=== PATIENT | male | born 1945 | race Caucasian/White ===

== ENCOUNTER → 2016-03-30 | Outpatient (CLI) | payer OTHER ==
[~2016-03-30] MED LIST: ABIR1TAB PO; AMT10 PO; CALC500C70 PO; DICY10CA12 PO; DOCU100T PO; ENOX120I SQ; FERR18TA2; FERR1TAB13 PO; LATA0.009 OPB; LEUP1INJ6 IM; NALO1TAB2 PO; ONDA4TAB10 SL; OXYC-57 PO; OXYC1TAB PO; POTA20TA16 PO; PRED-301 PO; PREG300C PO; PRLSR20 PO; RXC30 PO; TIZA4CAP PO; TRAV0.00 OPB; WARF-246 PO; WARF2.5T8 PO; [UNRECOGNIZED DRUG - SUPPLY]
--- NOTE | 2016-03-30 13:03 | DIAGNOSTIC IMAGING REPORT ---
EXAMINATION: RENAL ULTRASOUND CLINICAL HISTORY: HEMATURIA COMPARISON STUDY: CT scan dated 02/19/2015 FINDINGS: The right kidney measures 12.1 cm. The left kidney measures 12.1 cm. There is no evidence of hydronephrosis. There is a 17 mm mid to upper pole right renal cyst. There are several left renal cysts, the largest of which measures 2.6 cm. No bladder abnormalities are visualized. The bladder was not well-distended. Bilateral ureteral jets were visualized. IMPRESSION : Bilateral renal cysts. No solid renal masses identified. Electronically signed by: Hans Long M.D. 03/30/2016 1:01 PM Dictated Date/Time: 03/30/2016 1:00 PM
== END | disposition home or self-care (01) ==
LOC: C.ULTRBC 11:39
DX: R31.9 Hematuria, unspecified (principal); N28.1 Cyst of kidney, acquired

== ENCOUNTER → 2016-03-31 | Outpatient (CLI) | payer OTHER | END | disposition home or self-care (01) | LOC: C.LABSPEC 17:04 → C.PATHSPEC 17:13 | PROVIDERS: ATTEND Nurse Practitioner Adult Health | DX: R31.0 Gross hematuria (principal); R82.8 Abnormal findings on cytological and histological examination of urine ==

== ENCOUNTER 2016-04-05 10:37 | Inpatient (IN) | payer OTHER ==
[~2016-04-05] VITALS: Ht 172.7 cm; Wt 99.8 kg
[~2016-04-05 10:37] MED LIST changes: -ABIR1TAB PO; -AMT10 PO; -CALC500C70 PO; -DICY10CA12 PO; -DOCU100T PO; -ENOX120I SQ; -FERR18TA2; -FERR1TAB13 PO; -LEUP1INJ6 IM; -NALO1TAB2 PO; -ONDA4TAB10 SL; -OXYC-57 PO; -OXYC1TAB PO; -POTA20TA16 PO; -PRED-301 PO; -PREG300C PO; -PRLSR20 PO; -TIZA4CAP PO; -TRAV0.00 OPB; -WARF-246 PO; -WARF2.5T8 PO; -[UNRECOGNIZED DRUG - SUPPLY]
[2016-04-05] MEDS ORDERED: OXYC1TAB PO (11:20)
[2016-04-05] MEDS ORDERED: TIZA4CAP PO (11:22)
[2016-04-05] MEDS ORDERED: DOCU100T PO (11:22)
[2016-04-05] MEDS ORDERED: LATA0.009 OPB (11:25)
[2016-04-05] MEDS ORDERED: [UNRECOGNIZED DRUG - SUPPLY] (11:27)
[2016-04-05] MEDS ORDERED: FERR18TA2 (11:27)
--- NOTE | 2016-04-05 11:27 | EMERGENCY ROOM VISIT NOTE ---
History Report prepared by Darielibarianna: Selena Porter Under the Supervision of: Dr. Krishna Rowland M.D. 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 pt to toom b1. upon arrival pt is AAOx4. pt states he was drinking his morning coffee and watching tv. pt unable to collect all of happenings this morning. pt talking and answering questions appropriately at this time. pt with hx of TIA, sleep apnea, and currently has nerve stimulator. as per als, pt bradycardic and hypotensive in route family states 'this episode happens frequently. this one he seemed to be a little more out of it.' History of Present Illness The patient is a 70 year old male who presents to the Emergency Room via ALS with complaints of a syncopal episode occurring about 40 minutes prior to arrival. He was unresponsive for about 5 minutes. He denies falling. He has a history of similar symptoms occurring multiple times over the past few years but his episode today was the most severe one. He also has a history of bradycardia and hypotension. As per family, the patient has mild slurring of speech which is normal. As per family, patient's right eye deviation is normal but the patient states that he has never been told of the deviation before. The patient denies any chest pain, shortness of breath, abdominal pain, urinary symptoms, or any other complaints. He currently denies any pain. He has a history of prostate cancer without metastasis. He has an IVC filter in place. He also has a neurostimulator for left leg pain. Source of History: patient Onset: about 40 minutes prior to arrival Position: other (global) Symptom Intensity: No pain Quality: other (syncopal episode) Associated Symptoms: No SOB, No abdominal pain, No chest pain, No urinary symptoms Review of Systems All systems have been listed, reviewed, and are negative other than those previously mentioned. Please see Additional Medical History Sheet. 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 Surgical Problems: (1) Bone Marrow Transplant (2) Hip Joint Replacement Status (3) 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 Family History Hypertension Lung disease Social History Smoking Status: Current Every Day Smoker Alcohol Use: occasionally Drug Use: none Marital Status: Housing Status: lives with family Occupation Status: retired Current/Historical Medications Scheduled Abiraterone Acetate (Zytiga), 1,000 MG PO DAILY Amitriptyline HCl (Amitriptyline HCl), 10 MG PO HS Docusate Sodium (Dok), 50 MG PO DAILY Latanoprost (Xalatan 0.005% Oph Cecelia), 1 DROPS OPB HS Prednisone (Prednisone), 5 MG PO DAILY Pregabalin (Lyrica), 300 MG PO BID Tizanidine (Zanaflex), 4 MG PO TID Travoprost (Travatan Z), 1 DROP OPB HS Warfarin Sodium (Warfarin Sodium), 5 MG PO DAILY Scheduled PRN Leuprolide Acetate (6 Month) (Lupron Depot), 1 DOSE IM UD PRN for ELEVATED PSA Oxycodone Ir (Roxicodone Ir), 30-45 MG PO Q4 PRN for Pain Miscellaneous Medications Ferrous Fumarate (Iron) [breating apparatus] Allergies Coded Allergies: Adalimumab (Verified Allergy, Severe, GI SYMPTOMS, 04/05/16) Mirabegron (Verified Allergy, Intermediate, NUEROLOGICAL SYMPTOMS, 04/05/16 ) Methotrexate (Verified Allergy, Unknown, Blood platelets drop., 04/05/16) Naproxen (Unverified Allergy, Unknown, dilusional, 04/05/16) Physical Exam Vital Signs Date Time Temp Pulse Resp B/P Pulse Ox O2 Delivery O2 Flow Rate FiO2 04/05/16 15:01 56 18 149/99 94 Room Air 04/05/16 13:20 54 04/05/16 12:50 47 04/05/16 12:49 47 123/75 51 132/79 51 136/81 04/05/16 11:32 48 18 124/78 96 Room Air 04/05/16 10:46 36.5 56 17 108/65 95 Room Air 04/05/16 10:46 95 Room Air 04/05/16 10:46 95 Room Air 04/05/16 10:45 48 Physical Exam GENERAL: Patient awake, alert, oriented x 3. Patient follows commands. Patient has slightly garbled speech which he attributes to dry mouth. SKIN: No erythema, pallor, cyanosis or rash HEENT: Normal head, pupils equal, reactive to light and accommodation. Patient has ptosis. Disconjugate gaze with lateral deviation of right eye. Oral cavity and posterior pharynx appear normal. Neck: Without adenopathy, no neck vein distention. LUNGS: Clear to auscultation. No wheezes, no rales, no rhonchi. HEART: Bradycardic rate and regular rhythm. No murmurs. No gallops. No rubs ABDOMEN: Soft, nontender. EXTREMITIES: No signs of trauma. 1+ pretibial edema. No calf or thigh tenderness. NEUROLOGIC: Cranial nerves II-XII within normal limits. No gross motor sensory function deficits. Patient has slightly garbled speech which he attributes to dry mouth. Medical Decision & Procedures ER Provider Diagnostic Interpretation: CT results as stated below per my review and radiologist interpretation: HEAD CT NONCONTRAST CT DOSE: 614.27 mGy.cm HISTORY: syncope TECHNIQUE: Multiaxial CT images of the head were performed without the use of intravenous contrast. Automated exposure control was utilized for this study. Comparison: Head CT 05/15/2015. Findings: The paranasal sinuses and mastoid air cells are clear. The calvarium and skull base are intact. There is no mass, hematoma, midline shift, acute infarct. White matter hypodensity is nonspecific but suggestive of microvascular ischemic change. The ventricles and sulci are within normal limits for age. Impression: No significant change compared to the prior study. No acute intracranial abnormality. Electronically signed by: Stefan Solano M.D. 04/05/2016 11:52 AM Dictated Date/Time: 04/05/2016 11:46 AM Laboratory Results 04/05/16 10:30 Red Blood Count 5.06, Mean Corpuscular Volume 81.2, Mean Corpuscular Hemoglobin 27.1, Mean Corpuscular Hemoglobin Concent 33.3, Mean Platelet Volume 10.8, Neutrophils (%) (Auto) 60.0, Lymphocytes (%) (Auto) 25.2, Monocytes (%) (Auto) 8.8, Eosinophils (%) (Auto) 5.4, Basophils (%) (Auto) 0.3, Neutrophils # (Auto) 4.53, Lymphocytes # (Auto) 1.90, Monocytes # (Auto) 0.66, Eosinophils # (Auto) 0.41, Basophils # (Auto) 0.02 04/05/16 10:30 Test 04/05/16 10:30 04/05/16 10:55 White Blood Count 7.54 K/uL (4.8-10.8) Red Blood Count 5.06 M/uL (4.7-6.1) Hemoglobin 13.7 g/dL (14.0-18.0) Hematocrit 41.1 % (42-52) Mean Corpuscular Volume 81.2 fL (80-100) Mean Corpuscular Hemoglobin 27.1 pg (25-34) Mean Corpuscular Hemoglobin Concent 33.3 g/dl (32-36) Platelet Count 197 K/uL (130-400) Mean Platelet Volume 10.8 fL (7.4-10.4) Neutrophils (%) (Auto) 60.0 % Lymphocytes (%) (Auto) 25.2 % Monocytes (%) (Auto) 8.8 % Eosinophils (%) (Auto) 5.4 % Basophils (%) (Auto) 0.3 % Neutrophils # (Auto) 4.53 K/uL (1.4-6.5) Lymphocytes # (Auto) 1.90 K/uL (1.2-3.4) Monocytes # (Auto) 0.66 K/uL (0.11-0.59) Eosinophils # (Auto) 0.41 K/uL (0-0.5) Basophils # (Auto) 0.02 K/uL (0-0.2) RDW Standard Deviation 44.6 fL (36.4-46.3) RDW Coefficient of Variation 15.2 % (11.5-14.5) Immature Granulocyte % (Auto) 0.3 % Immature Granulocyte # (Auto) 0.02 K/uL (0.00-0.02) Prothrombin Time 24.7 SECONDS (9.0-12.0) Prothromb Time International Ratio 2.2 (0.9-1.1) Anion Gap 8.0 mmol/L (3-11) Est Creatinine Clear Calc Drug Dose 63.9 ml/min Estimated GFR () 69.6 Estimated GFR (Non- 60.1 BUN/Creatinine Ratio 19.2 (10-20) Calcium Level 8.9 mg/dl (8.5-10.1) Total Bilirubin 0.4 mg/dl (0.2-1) Aspartate Amino Transf (AST/SGOT) 19 U/L (15-37) Alanine Aminotransferase (ALT/SGPT) 21 U/L (12-78) Alkaline Phosphatase 72 U/L (45-117) Total Protein 7.4 gm/dl (6.4-8.2) Albumin 3.5 gm/dl (3.4-5.0) Globulin 3.9 gm/dl (2.5-4.0) Albumin/Globulin Ratio 0.9 (0.9-2) Bedside Glucose 96 mg/dl (70-99) Laboratory results as stated above per my review. ECG Indication: syncope Rate (beats per minute): 48 Rhythm: sinus bradycardia Findings: other (Very large amount of artifact making interpretation of ECG difficult) ED Course 1059: Past medical records reviewed. The patient was evaluated in room B01. A complete history and physical examination was performed. 1419: Upon reevaluation, the patient is resting comfortably. I discussed today' s findings with him. He verbalized agreement of the treatment plan. 1437: [facility] for further management. Medical Decision Differential diagnosis includes but is not limited to syncope, TIA, CVA, bradycardia, hypotension. I gave command to the paramedics prior to the patient's arrival in the ED. Multiple labs, EKG and imaging were obtained. Please see above. This is one of many episodes of syncope/near syncope but this episode was much more severe both in duration and severity. The patient could not be woken up for approximately 5 minutes. He was pale, clammy and diaphoretic. The patient has had a significant workup in the past without a definitive diagnosis made. Today he arrives bradycardic. The patient does not have signs of an acute CVA. The patient may have been more bradycardic and hypotensive earlier. In either case the patient will require further evaluation in the hospital. I discussed care with the patient multiple family members and the hospitalist. Consults Time Called: 1430 Consulting Physician: [facility] Returned Call: [address] [facility] the [facility] for further management. Impression Primary Impression: Syncope Scribe Attestation The scribe's documentation has been prepared under my direction and personally reviewed by me in its entirety. I confirm that the note above accurately reflects all work, treatment, procedures, and medical decision making performed by me. Departure Information Dispostion Being Evaluated By Hospitalist Referrals Tres Sommers Jr,D.O. (PCP) Patient Instructions My [facility]
[2016-04-05] MEDS ORDERED: LEUP1INJ6 IM (11:42)
--- NOTE | 2016-04-05 11:54 | DIAGNOSTIC IMAGING REPORT ---
HEAD CT NONCONTRAST CT DOSE: 614.27 mGy.cm HISTORY: syncope TECHNIQUE: Multiaxial CT images of the head were performed without the use of intravenous contrast. Automated exposure control was utilized for this study. Comparison: Head CT 05/15/2015. Findings: The paranasal sinuses and mastoid air cells are clear. The calvarium and skull base are intact. There is no mass, hematoma, midline shift, acute infarct. White matter hypodensity is nonspecific but suggestive of microvascular ischemic change. The ventricles and sulci are within normal limits for age. Impression: No significant change compared to the prior study. No acute intracranial abnormality. Electronically signed by: Stefan Solano M.D. 04/05/2016 11:52 AM Dictated Date/Time: 04/05/2016 11:46 AM
[2016-04-05 12:35] LABS: BASO % 0.3 %; BASO ABS # 0.02 K/uL (0-0.2); COMPLETE YES; EOS % 5.4 %; HEMATOCRIT 41.1 % (42-52); IG% 0.3 %; LYMPH % 25.2 %; MEAN CELL VOLUME 81.2 fL (80-100); MEAN CORPUSCULAR HEMOGLOBIN 27.1 pg (25-34); MEAN CORPUSCULAR HGB CONC 33.3 g/dl (32-36); MEAN PLATELET VOLUME 10.8 fL (7.4-10.4); MONO % 8.8 %; PLATELET COUNT 197 K/uL (130-400); RED BLOOD COUNT 5.06 M/uL (4.7-6.1); WHITE BLOOD COUNT 7.54 K/uL (4.8-10.8)
[2016-04-05 12:39] LABS: ALT/SGPT 21 U/L (12-78); AST/SGOT 19 U/L (15-37); BLOOD UREA NITROGEN 23 mg/dl (7-18); BUN/CREATININE RATIO 19.2 (10-20); CALCIUM 8.9 mg/dl (8.5-10.1); CARBON DIOXIDE 27 mmol/L (21-32); CHLORIDE 106 mmol/L (98-107); GLUCOSE 95 mg/dl (70-99); POTASSIUM 4.2 mmol/L (3.5-5.1); SODIUM 141 mmol/L (136-145)
[2016-04-05 12:44] LABS: ALB/GLOB RATIO 0.9 (0.9-2); ALKALINE PHOSPHATASE 72 U/L (45-117)
[2016-04-05] MEDS ORDERED: AMT10 PO (13:49)
[2016-04-05] MEDS ORDERED: TRAV0.00 OPB (13:49)
[2016-04-05 14:29] LABS: INR 2.2 (0.9-1.1); PROTHROMBIN TIME (PATIENT) 24.7 SECONDS (9.0-12.0)
[2016-04-05] MEDS ORDERED: ZOLPIDEM TARTRATE 5 MG TAB PO PRN (16:15)
[2016-04-05] MEDS ORDERED: NITROGLYCERIN 0.4 MG SL PER TAB CHARGE SL PRN (16:15)
[2016-04-05] MEDS ORDERED: DiphenhydrAMINE HCL 50 MG/ML VIAL IV PRN (16:15)
[2016-04-05] MEDS ORDERED: ONDANSETRON INJ 2 MG/ML 2 ML VIAL IV PRN (16:15)
[2016-04-05] MEDS ORDERED: LORAZEPAM 2 MG/ML 1 ML VIAL IV PRN (16:15)
[2016-04-05] MEDS ORDERED: MAGNESIUM HYDROXIDE SUSP 30 ML UDC PO PRN (16:15)
[2016-04-05] MEDS ORDERED: MoRPHine SULFATE 2 MG/ML CARP IV PRN (16:15)
[2016-04-05] MEDS ORDERED: ACETAMINOPHEN 325 MG TAB PO PRN (16:15)
[2016-04-05] MEDS ORDERED: PROMETHAZINE HCL INJ 12.5 MG in SODIUM CHLORIDE 0.9% 50ML 50 ML IV PRN (16:15)
[2016-04-05] MEDS ORDERED: ALUMINUM/MAGNESIUM/SIMETH (MAALOX MAX) 30 ML UDC PO PRN (16:15)
[2016-04-05] MEDS ORDERED: OPTIRAY 320 IV PRN (16:15)
[2016-04-05] MEDS ORDERED: MoRPHine SULFATE 4 MG/ML 1 ML CARP\\VIAL IV PRN (16:15)
[2016-04-05 16:49] VITALS: BP 154/82; PULSE 54; TEMP 36.6; Ht 172.7 cm; Wt 99.8 kg
[2016-04-05 18:07] LABS: CKMB/CK RATIO 3.1 (0-3.0)
[2016-04-05] MEDS ORDERED: WARF-246 PO (18:45)
[2016-04-05] MEDS ORDERED: ABIR1TAB PO (18:45)
[2016-04-05] MEDS ORDERED: PREG300C PO (18:45)
[2016-04-05] MEDS ORDERED: PRED-301 PO (18:45)
[2016-04-05] MEDS: WARFARIN SOD 5 MG TAB PO SCH (19:01)
--- NOTE | 2016-04-05 19:24 | DIAGNOSTIC IMAGING REPORT ---
CT ANGIOGRAM OF THE BRAIN; CT ANGIOGRAM OF THE NECK CLINICAL HISTORY: Change in mental status. Unresponsive episode. COMPARISON STUDY: CT angiogram of the head and neck dated 12/18/2014. Unenhanced CT scan of the brain dated 04/05/16. TECHNIQUE: Following the IV administration of 116 of Optiray 320, CT angiogram of the head and neck was performed from the aortic arch to the vertex. Images are reviewed in the axial, sagittal, and coronal planes. 3-D MIPS images are created and assessed. IV contrast was administered without complication. All measurements were calculated based on NASCET criteria. CT DOSE: 587.02 mGy.cm FINDINGS: Brain parenchyma: There are age-related involutional changes noting mild subcortical and periventricular microangiopathic disease. There is no hemorrhage, mass effect, or evidence of acute territorial ischemia by CT criteria. There is no evidence of enhancing mass lesion on the angiogram phase images. The ventricles, sulci, and cisterns are prominent secondary to involutional change. No extra-axial fluid collection is identified. Man-white matter differential is preserved. Thoracic aorta: There is atherosclerotic calcification of the visualized thoracic aorta. The imaged thoracic aorta is normal in caliber and the arch demonstrates standard 3-vessel anatomy. Right carotid arterial system: The right common carotid artery is widely patent, as are the right internal and external carotid arteries. No dissection is seen. Mild atherosclerotic calcification is noted in the carotid bulb. Left carotid arterial system: The left common carotid artery is widely patent, as are the left internal and external carotid arteries. There is tortuosity of the distal left internal carotid artery. Mild atherosclerotic calcification is seen in the carotid bulb. No dissection is identified. Vertebral arteries: Widely patent and codominant. Subclavian arteries: Widely patent bilaterally. Intracranial vasculature: There is mild atherosclerotic calcification of the cavernous carotid arteries. The internal carotid arteries are widely patent at the skull base, as are the anterior and middle cerebral arteries. The vertebrobasilar system and the posterior cerebral arteries are widely patent. The vertebral arteries appear codominant. No aneurysm, high-grade stenosis, or focal vessel cutoff is identified. Jugular veins: Widely patent bilaterally. Dural sinuses: Clear as visualized. Lung apices: Partially visualized upper lobe lung parenchyma appears clear. Soft tissues: Mild inflammatory change and stranding is suggested in the laryngopharynx at the level of the vocal cords. Mild stranding is also suggested in the pharyngeal soft tissues at the level of the vallecula. There is mild stranding involving the parapharyngeal fat at this level. There is narrowing of the airway above the vocal cords. The salivary and thyroid glands are normal in appearance. No cervical lymphadenopathy is seen. The epiglottis is normal. Skeletal structures: The calvarium appears intact. The cervical spine is within normal limits noting multilevel spondylotic change. No lytic or blastic lesions are seen. Fusion hardware is noted in the cervical spine. Sinuses and mastoids: The paranasal sinuses are clear. The mastoid air cells are well pneumatized. IMPRESSION: 1. There is no evidence of hemorrhage, mass effect, or acute territorial ischemia by CT criteria. 2. Unremarkable CT angiogram of the brain. 3. Unremarkable CT angiogram of the neck. 4. There is nonspecific inflammatory change involving the soft tissues of the laryngopharynx, with mild stranding also seen within the parapharyngeal fat at this level. This is nonspecific and could be related to instrumentation, or could represent an infectious/inflammatory process. Clinical correlation will be essential. There is narrowing of the pharyngeal airway above the vocal cords. Consider ENT assessment/follow-up if clinically warranted. Electronically signed by: rBad Gonzalez M.D. 04/05/2016 7:23 PM Dictated Date/Time: 04/05/2016 7:10 PM
[2016-04-05] MEDS: DOCUSATE SODIUM 100 MG CAP PO SCH (19:31)
[2016-04-05 19:37] VITALS: BP 168/88; PULSE 51; TEMP 36.4; O2SAT 97
[2016-04-05] MEDS: PREGABALIN 150 MG CAP PO SCH (20:36)
[2016-04-05] MEDS: TRAVOPROST Z 0.004% OPH SOLN 2.5 ML BTL OPB SCH (20:37)
[2016-04-05] MEDS ORDERED: LATANOPROST 0.005% OP SOLN 2.5 ML BTL OPB SCH (21:00)
--- NOTE | 2016-04-05 21:27 | History and Physical ---
History & Physical Date & Time of Service: Apr 05, 2016 at 21:25 Chief Complaint: Syncope, Unresponsive Episode Primary Care Physician: Tres Sommers Jr,D.O. History of Present Illness Source: patient The patient is a 70-year-old male who presents to the emergency Department via ALS to syncopal episode occurred about 40 minutes prior to arrival, during which his reports he was unresponsive for 5 minutes. He's had this happened several times over the past few years today was most severe. He does have a history of bradycardia/hypotension, prostate cancer, status post IVC filter, and has a neurostimulator for left leg pain. Past Medical/Surgical History Medical Problems: (1) Cerv Spondyl W Myelopath Status: Chronic (2) Cervical Disc Degen Status: Chronic (3) Cervical Spondylosis Status: Chronic (4) Clostridium difficile colitis Status: Resolved (5) Fracture of distal fibula Status: Resolved (6) Hyperlipidemia Nec/Nos Status: Chronic (7) Hypertension Nos Status: Chronic (8) Lumb/Lumbosac Disc Degen Status: Chronic (9) Lumbago Status: Chronic (10) Lumbosacral Neuritis Nos Status: Chronic (11) Lumbosacral Spondylosis Status: Chronic (12) Malign Neopl Prostate Status: Resolved (13) Osteoporosis Nos Status: Chronic (14) Thrombocytopenia Nos Status: Chronic (15) 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 Status: Resolved Surgical Problems: (1) Bone Marrow Transplant Status: Resolved (2) Hip Joint Replacement Status Status: Resolved Family History Hypertension Lung disease Social History Smoking Status: Light Tobacco Smoker Smokeless Tobacco Use: No Alcohol Use: none Drug Use: none Marital Status: Housing status: lives with family Occupational Status: retired Immunizations History of Influenza Vaccine: Yes Influenza Vaccine Date: Jan 09, 2012 History of Tetanus Vaccine?: No History of Pneumococcal: Yes Pneumococcal Date: Dec 31, 2004 History of Hepatitis B Vaccine: No Multi-Drug Resistant Organisms History of MDRO: No Allergies Coded Allergies: Adalimumab (Verified Allergy, Severe, GI SYMPTOMS, 04/05/16) Mirabegron (Verified Allergy, Intermediate, NUEROLOGICAL SYMPTOMS, 04/05/16 ) Methotrexate (Verified Allergy, Unknown, Blood platelets drop., 04/05/16) Naproxen (Unverified Allergy, Unknown, dilusional, 04/05/16) Home Medications Scheduled Abiraterone Acetate (Zytiga), 1,000 MG PO DAILY Amitriptyline HCl (Amitriptyline HCl), 10 MG PO HS Docusate Sodium (Dok), 50 MG PO DAILY Prednisone (Prednisone), 5 MG PO DAILY Pregabalin (Lyrica), 300 MG PO BID Tizanidine (Zanaflex), 4 MG PO TID Travoprost (Travatan Z), 1 DROP OPB HS Warfarin Sodium (Warfarin Sodium), 5 MG PO DAILY Scheduled PRN Leuprolide Acetate (6 Month) (Lupron Depot), 1 DOSE IM UD PRN for ELEVATED PSA Oxycodone Ir (Roxicodone Ir), 30-45 MG PO Q4 PRN for Pain Miscellaneous Medications Ferrous Fumarate (Iron) [breating apparatus] Review of Systems The patient denies chest pain, palpitations, shortness of breath, cough, vision change, hearing change, sore throat, fevers, chills, sweats, weight change, fatigue, nausea, vomiting, abdominal pain, pelvic pain, blood in urine or stool , dysuria, urinary frequency or urgency, lightheadedness, rash, abnormal bruising or bleeding, generalized weakness, arthralgias or myalgias, back or neck pain, night sweats, or allergy symptoms. The review of systems is otherwise negative other than for that already noted above, and at least 10 systems have been reviewed. Physical Exam Vital Signs Date Time Temp Pulse Resp B/P Pulse Ox O2 Delivery O2 Flow Rate FiO2 04/05/16 20:00 Room Air 04/05/16 19:37 36.4 51 22 168/88 97 Room Air 04/05/16 16:49 36.6 54 18 154/82 04/05/16 16:30 Room Air 04/05/16 16:22 52 16 167/84 95 Room Air 04/05/16 15:01 56 18 149/99 94 Room Air 04/05/16 13:20 54 04/05/16 12:50 47 04/05/16 12:49 47 123/75 51 132/79 51 136/81 04/05/16 11:32 48 18 124/78 96 Room Air 04/05/16 10:46 36.5 56 17 108/65 95 Room Air 04/05/16 10:46 95 Room Air 04/05/16 10:46 95 Room Air 04/05/16 10:45 48 The patient is awake, well-developed and adequately nourished, alert and oriented 3, normocephalic and atraumatic, lying in bed and in no acute distress. HEENT--PERRL, EOMI, mucous membranes and oropharynx dry. Neck--supple, no JVD or bruits, thyroid normal, trachea midline, no adenopathy. Heart--normal S1 and S2, no extra beats, no murmurs, rubs or gallops. Lungs--clear bilaterally with good air movement, no respiratory distress, no accessory muscle use. Abdomen--normal bowel sounds and soft, nontender and nondistended, no hernias or masses, no organomegaly. Extremities--no cyanosis, clubbing or edema. There are good distal pulses b/l. Dermatologic--normal skin turgor, normal color, warm and dry, no abnormal lymph nodes, no rash. Neurologic--cranial nerves II through XII grossly intact, motor and sensory examination normal. Rheumatologic--normal range of motion, nontender, muscles and joints. Psychiatric--normal affect. Diagnostics Laboratory Results Results Past 24 Hours Test 04/05/16 10:30 04/05/16 10:55 04/05/16 17:10 Range/Units White Blood Count 7.54 4.8-10.8 K/uL Red Blood Count 5.06 4.7-6.1 M/uL Hemoglobin 13.7 14.0-18.0 g/dL Hematocrit 41.1 42-52 % Mean Corpuscular Volume 81.2 80-100 fL Mean Corpuscular Hemoglobin 27.1 25-34 pg Mean Corpuscular Hemoglobin Concent 33.3 32-36 g/dl Platelet Count 197 130-400 K/uL Mean Platelet Volume 10.8 7.4-10.4 fL Neutrophils (%) (Auto) 60.0 % Lymphocytes (%) (Auto) 25.2 % Monocytes (%) (Auto) 8.8 % Eosinophils (%) (Auto) 5.4 % Basophils (%) (Auto) 0.3 % Neutrophils # (Auto) 4.53 1.4-6.5 K/uL Lymphocytes # (Auto) 1.90 1.2-3.4 K/uL Monocytes # (Auto) 0.66 0.11-0.59 K/uL Eosinophils # (Auto) 0.41 0-0.5 K/uL Basophils # (Auto) 0.02 0-0.2 K/uL RDW Standard Deviation 44.6 36.4-46.3 fL RDW Coefficient of Variation 15.2 11.5-14.5 % Immature Granulocyte % (Auto) 0.3 % Immature Granulocyte # (Auto) 0.02 0.00-0.02 K/uL Prothrombin Time 24.7 9.0-12.0 SECONDS Prothromb Time International Ratio 2.2 0.9-1.1 Sodium Level 141 136-145 mmol/L Potassium Level 4.2 3.5-5.1 mmol/L Chloride Level 106 98-107 mmol/L Carbon Dioxide Level 27 21-32 mmol/L Anion Gap 8.0 3-11 mmol/L Blood Urea Nitrogen 23 7-18 mg/dl Creatinine 1.20 0.60-1.40 mg/dl Est Creatinine Clear Calc Drug Dose 63.9 ml/min Estimated GFR () 69.6 Estimated GFR (Non- 60.1 BUN/Creatinine Ratio 19.2 10-20 Random Glucose 95 70-99 mg/dl Calcium Level 8.9 8.5-10.1 mg/dl Total Bilirubin 0.4 0.2-1 mg/dl Aspartate Amino Transf (AST/SGOT) 19 15-37 U/L Alanine Aminotransferase (ALT/SGPT) 21 12-78 U/L Alkaline Phosphatase 72 45-117 U/L Troponin I < 0.015 < 0.015 0-0.045 ng/ml Total Protein 7.4 6.4-8.2 gm/dl Albumin 3.5 3.4-5.0 gm/dl Globulin 3.9 2.5-4.0 gm/dl Albumin/Globulin Ratio 0.9 0.9-2 Bedside Glucose 96 70-99 mg/dl Total Creatine Kinase 163 39-308 U/L Creatine Kinase MB 5.0 0.5-3.6 ng/ml Creatine Kinase MB Ratio 3.1 0-3.0 Diagnostic Radiology Patient Name: CANDELARIA ALVAREZ Unit Number: [id number] Dictated: 04/05/16 1146 Transcribed: 04/05/16 114 [facility] Printed Date/Time: [~ rep prt dt]/[~ rep prt tm] [~ rep ct labl] - [~ rep ct ivnm] [facility] [place] [place] [address] Dictated: 04/05/161145 Transcribed: 04/05/16 114 [facility] Printed Date/Time: [~ rep prt dt]/[~ rep prt tm] [~ rep ct labl] - [~ rep ct ivnm] CT DOSE: 614.27 mGy.cm HISTORY: syncope TECHNIQUE: Multiaxial CT images of the head were performed without the use of intravenous contrast. Automated exposure control was utilized for this study. Comparison: Head CT 05/15/2015. Findings: The paranasal sinuses and mastoid air cells are clear. The calvarium and skull base are intact. There is no mass, hematoma, midline shift, acute infarct. White matter hypodensity is nonspecific but suggestive of microvascular ischemic change. The ventricles and sulci are within normal limits for age. Impression: No significant change compared to the prior study. No acute intracranial abnormality. Electronically signed by: Stefan Solano M.D. 04/05/2016 11:52 AM Dictated Date/Time: 04/05/2016 11:46 AM The status of this report is Signed. Draft = Not yet reviewed or approved by Radiologist. Signed = Reviewed and approved by Radiologist. <AttendingPhy></AttendingPhy> <FamilyPhy>Tres Sommers Jr,D.O.</FamilyPhy> < PrimaryPhy>Tres Sommers Jr,D.O.</PrimaryPhy> <UnitNumber>[id number]</ UnitNumber> <VisitNumber>[id number]</VisitNumber> <PatientName>CANDELARIA ALVAREZ</PatientName> <DateOfBirth>1945</DateOfBirth> <Location>[facility]</Location > <ServiceDate>04/05/16</ServiceDate> <MNE>ESINDI</MNE> <OrderingPhy>Krishna Rowland M.D.</OrderingPhy> <OrderingPhyMNE>f rep ord dr ivory</OrderingPhyMNE> < DictatingPhyMNE>f rep dict dr ivory</DictatingPhyMNE> <CCListMNE>f rep ct mne</ CCListMNE> <AdmittingPhyMNE>f pt admit dr ivory</AdmittingPhyMNE> <AttendingPhyMNE >f pt attend dr ivory</AttendingPhyMNE> <ConsultingPhyMNE>f pt consult dr ivory</ConsultingPhyMNE> <FamilyPhyMNE>f pt fam dr ivory</FamilyPhyMNE> <OtherPhyMNE>f pt other dr ivory</OtherPhyMNE> < PrimaryPhyMNE>f pt prim care dr ivory</PrimaryPhyMNE> <ReferringPhyMNE>f pt referring dr ivory</ReferringPhyMNE> Patient Name: CANDELARIA ALVAREZ Unit Number: [id number] Dictated: 04/05/161909 Transcribed: 04/05/161909 EV Printed Date/Time: [~ rep prt dt]/[~ rep prt tm] [~ rep ct labl] - [~ rep ct ivnm] [facility] [place] [address] Dictated: 04/05/161909 Transcribed: 04/05/161909 EV Printed Date/Time: [~ rep prt dt]/[~ rep prt tm] [~ rep ct labl] - [~ rep ct ivnm] [~ rep ct add3]] CT ANGIOGRAM OF THE BRAIN; CT ANGIOGRAM OF THE NECK CLINICAL HISTORY: Change in mental status. Unresponsive episode. COMPARISON STUDY: CT angiogram of the head and neck dated 12/18/2014. Unenhanced CT scan of the brain dated 04/05/16. TECHNIQUE: Following the IV administration of 116 of Optiray 320, CT angiogram of the head and neck was performed from the aortic arch to the vertex. Images are reviewed in the axial, sagittal, and coronal planes. 3-D MIPS images are created and assessed. IV contrast was administered without complication. All measurements were calculated based on NASCET criteria. CT DOSE: 587.02 mGy.cm FINDINGS: Brain parenchyma: There are age-related involutional changes noting mild subcortical and periventricular microangiopathic disease. There is no hemorrhage, mass effect, or evidence of acute territorial ischemia by CT criteria. There is no evidence of enhancing mass lesion on the angiogram phase images. The ventricles, sulci, and cisterns are prominent secondary to involutional change. No extra-axial fluid collection is identified. Man-white matter differential is preserved. Thoracic aorta: There is atherosclerotic calcification of the visualized thoracic aorta. The imaged thoracic aorta is normal in caliber and the arch demonstrates standard 3-vessel anatomy. Right carotid arterial system: The right common carotid artery is widely patent, as are the right internal and external carotid arteries. No dissection is seen. Mild atherosclerotic calcification is noted in the carotid bulb. Left carotid arterial system: The left common carotid artery is widely patent, as are the left internal and external carotid arteries. There is tortuosity of the distal left internal carotid artery. Mild atherosclerotic calcification is seen in the carotid bulb. No dissection is identified. Vertebral arteries: Widely patent and codominant. Subclavian arteries: Widely patent bilaterally. Intracranial vasculature: There is mild atherosclerotic calcification of the cavernous carotid arteries. The internal carotid arteries are widely patent at the skull base, as are the anterior and middle cerebral arteries. The vertebrobasilar system and the posterior cerebral arteries are widely patent. The vertebral arteries appear codominant. No aneurysm, high-grade stenosis, or focal vessel cutoff is identified. Jugular veins: Widely patent bilaterally. Dural sinuses: Clear as visualized. Lung apices: Partially visualized upper lobe lung parenchyma appears clear. Soft tissues: Mild inflammatory change and stranding is suggested in the laryngopharynx at the level of the vocal cords. Mild stranding is also suggested in the pharyngeal soft tissues at the level of the vallecula. There is mild stranding involving the parapharyngeal fat at this level. There is narrowing of the airway above the vocal cords. The salivary and thyroid glands are normal in appearance. No cervical lymphadenopathy is seen. The epiglottis is normal. Skeletal structures: The calvarium appears intact. The cervical spine is within normal limits noting multilevel spondylotic change. No lytic or blastic lesions are seen. Fusion hardware is noted in the cervical spine. Sinuses and mastoids: The paranasal sinuses are clear. The mastoid air cells are well pneumatized. IMPRESSION: 1. There is no evidence of hemorrhage, mass effect, or acute territorial ischemia by CT criteria. 2. Unremarkable CT angiogram of the brain. 3. Unremarkable CT angiogram of the neck. 4. There is nonspecific inflammatory change involving the soft tissues of the laryngopharynx, with mild stranding also seen within the parapharyngeal fat at this level. This is nonspecific and could be related to instrumentation, or could represent an infectious/inflammatory process. Clinical correlation will be essential. There is narrowing of the pharyngeal airway above the vocal cords. Consider ENT assessment/follow-up if clinically warranted. Electronically signed by: Brad Gonzalez M.D. 04/05/2016 7:23 PM Dictated Date/Time: 04/05/2016 7:10 PM The status of this report is Signed. Draft = Not yet reviewed or approved by Radiologist. Signed = Reviewed and approved by Radiologist. <AttendingPhy>Kilo Quinones M.D.</AttendingPhy> <FamilyPhy>Tres Sommers Jr,D.O.</FamilyPhy> <PrimaryPhy>Tres Sommers Jr,D.O.</PrimaryPhy> < UnitNumber>[id number]</UnitNumber> <VisitNumber>[id number]</VisitNumber> < PatientName>CANDELARIA ALVAREZ</PatientName> <DateOfBirth>1945</DateOfBirth > <Location>[facility]</Location> <ServiceDate>04/05/16</ServiceDate> <MNE>ESINDI</MNE > <OrderingPhy>Kilo Quinones M.D.</OrderingPhy> <OrderingPhyMNE>f rep ord dr ivory</OrderingPhyMNE> <DictatingPhyMNE>f rep dict dr [place]</DictatingPhyMNE > <CCListMNE>f rep ct [place]</CCListMNE> <AdmittingPhyMNE>f pt admit dr ivory</ AdmittingPhyMNE> <AttendingPhyMNE>f pt attend dr ivory</AttendingPhyMNE> <ConsultingPhyMNE>f pt consult dr ivory</ConsultingPhyMNE> <FamilyPhyMNE>f pt fam dr ivory</FamilyPhyMNE> <OtherPhyMNE>f pt other dr ivory</OtherPhyMNE> < PrimaryPhyMNE>f pt prim care dr ivory</PrimaryPhyMNE> <ReferringPhyMNE>f pt referring dr ivory</ReferringPhyMNE> EKG EKG shows sinus bradycardia at 45, with excessive baseline noise secondary to neurostimulator. Impression Assessment and Plan Unresponsive episode--CT of the head and CTA of the head and neck showed no acute problems. He will be admitted to the telemetry unit, for serial cardiac enzymes, cardiac rhythm monitoring and a 2-D echocardiogram with Dopplers. He does show bradycardia in the emergency department, and did show bradycardia en route to the ED, which brings up the possibility of severe bradycardias as a potential cause of his symptoms.. He is not on any negative inotropes which could cause bradycardia. We'll consult cardiology for their opinion, and neurology. Left lower extremity DVT history--continue warfarin 5 mg by mouth daily. Prostate cancer--continue Zytiga 1000 mg by mouth daily, and prednisone 5 mg by mouth daily, will hold on a stress test steroids at this time. Glaucoma--continue Travatan Z and Xalatan as per outpatient. Neuromuscular state--continue Lyrica 3 mg by mouth twice a day and Zanaflex 4 mg by mouth 3 times a day. Level of Care Telemetry Advanced Directives Existing Advance Directive: No Existing Living Will: Yes Existing Power of Dancer Or Choreographer: Yes ( dyllan) Resuscitation Status FULL RESUSCITATION VTE Prophylaxis VTE Risk Assessment Done? Y/N: Yes Risk Level: Moderate Social Service Consult None Apply
[2016-04-05 23:30] VITALS: BP 178/96; PULSE 58; TEMP 36.5; O2SAT 95
[2016-04-06] VITALS (7 sets, daily range): BP systolic 122–165; BP diastolic 77–93; PULSE 56–57; TEMP 36.5–36.9; O2SAT 93–95
[2016-04-06 01:18] LABS: CKMB/CK RATIO 2.8 (0-3.0)
[2016-04-06] MEDS: DOCUSATE SODIUM 100 MG CAP PO SCH ×2 (08:06→21:16)
[2016-04-06] MEDS: ABIRATERONE ACETATE 250 MG PO SCH (08:07)
[2016-04-06] MEDS: PREGABALIN 150 MG CAP PO SCH ×2 (08:13→21:22)
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
[2016-04-06 08:57] LABS: BASO % 0.2 %; BASO ABS # 0.02 K/uL (0-0.2); COMPLETE YES; HEMATOCRIT 41.3 % (42-52); IG% 0.3 %; LYMPH % 18.6 %; LYMPH ABS # 1.84 K/uL (1.2-3.4); MEAN CELL VOLUME 79.7 fL (80-100); MEAN CORPUSCULAR HEMOGLOBIN 26.8 pg (25-34); MEAN CORPUSCULAR HGB CONC 33.7 g/dl (32-36); MONO % 11.5 %; NEUT % 66.4 %; PLATELET COUNT 170 K/uL (130-400); RED BLOOD COUNT 5.18 M/uL (4.7-6.1); WHITE BLOOD COUNT 9.89 K/uL (4.8-10.8)
[2016-04-06 09:05] LABS: PARTIAL THROMBOPLASTIN RATIO 1.3; PROTHROMBIN TIME (PATIENT) 22.2 SECONDS (9.0-12.0)
--- NOTE | 2016-04-06 09:09 | EEG Procedure Note ---
EEG Procedure Note Date of Service Apr 06, 2016. Start / End Times Start Time: 8:19 AM End Time: 8:40 AM Referring Physician Kilo Connolly History This is a 70 year old male with a syncopal episode. EEG for further evaluation of possible seizure etiology. Home Medication List Scheduled Abiraterone Acetate (Zytiga), 1,000 MG PO DAILY Amitriptyline HCl (Amitriptyline HCl), 10 MG PO HS Docusate Sodium (Dok), 50 MG PO DAILY Prednisone (Prednisone), 5 MG PO DAILY Pregabalin (Lyrica), 300 MG PO BID Tizanidine (Zanaflex), 4 MG PO TID Travoprost (Travatan Z), 1 DROP OPB HS Warfarin Sodium (Warfarin Sodium), 5 MG PO DAILY Scheduled PRN Leuprolide Acetate (6 Month) (Lupron Depot), 1 DOSE IM UD PRN for ELEVATED PSA Oxycodone Ir (Roxicodone Ir), 30-45 MG PO Q4 PRN for Pain Miscellaneous Medications Ferrous Fumarate (Iron) [breating apparatus] Inpatient Medication List Current Inpatient Medications Medications (Trade) Dose Ordered Sig/Andrew Route Start Time Stop Time Status Last Admin Dose Admin Ioversol (Optiray 320) 120 ml UD PRN IV 04/05/16 16:15 04/09/16 16:14 Acetaminophen (Tylenol Tab) 650 mg Q4H PRN PO 04/05/16 16:15 05/05/16 16:14 Zolpidem Tartrate (Ambien Tab) 5 mg HSZ PRN PO 04/05/16 16:15 05/05/16 16:14 Nitroglycerin (Nitrostat Tab) 0.4 mg UD PRN SL 04/05/16 16:15 05/05/16 16:14 Prednisone (PredniSONE TAB) 10 mg DAILY PO 04/06/16 09:00 05/06/16 08:59 04/06/16 08:07 10 MG Pregabalin (Lyrica Cap) 300 mg BID PO 04/05/16 21:00 05/05/16 20:59 04/06/16 08:13 300 MG Travoprost (Travatan Z) 1 drops HS OPB 04/05/16 21:00 05/05/16 20:59 04/05/16 20:37 1 DROPS Warfarin Sodium (Coumadin Tab) 5 mg DAILY@1600 PO 04/05/16 16:00 05/05/16 15:59 04/05/16 19:01 5 MG Tizanidine HCl (Zanaflex Tab) 4 mg TID PO 04/05/16 21:00 05/05/16 20:59 04/06/16 08:06 4 MG Lorazepam (Ativan Inj) 0.5 mg Q4H PRN IV 04/05/16 16:15 05/05/16 16:14 Magnesium Hydroxide (Milk Of Magnesia Susp) 30 ml Q6H PRN PO 04/05/16 16:15 05/05/16 16:14 Diphenhydramine HCl (Benadryl Inj) 25 mg Q4H PRN IV 04/05/16 16:15 05/05/16 16:14 Al Hydrox/Mg Hydrox/ Simethicone 15 ml 15 ml Q4H PRN PO 04/05/16 16:15 05/05/16 16:14 Promethazine HCl/ Sodium Chloride (Phenergan Inj/ Nss 50ml) 50.5 ml @ 202 mls/hr Q4H PRN IV 04/05/16 16:15 05/05/16 16:14 Ondansetron HCl (Zofran Inj) 4 mg Q6H PRN IV 04/05/16 16:15 05/05/16 16:14 Docusate Sodium (coLACE CAP) 100 mg BID PO 04/05/16 21:00 05/05/16 20:59 04/06/16 08:06 100 MG Morphine Sulfate (MoRPHine SULFATE INJ) 2 mg Q2H PRN IV 04/05/16 16:15 04/19/16 16:14 Morphine Sulfate (MoRPHine SULFATE INJ) 4 mg Q2H PRN IV 04/05/16 16:15 04/19/16 16:14 Abiraterone Acetate (Zytiga) 1,000 mg QAM PO 04/06/16 09:00 05/06/16 08:59 04/06/16 08:07 1,000 MG Description This is a 21 electrode EEG with a single channel dedicated to limited EKG. The electrodes were placed in accordance with the International 10-20 system. During sleep there was noted to be a single Fp2 spike wave that appeared to be more consistent with rectus muscle artifact spike. At the start of the recording the patient was in an awake state. Background was well organized and composed of symmetric mixed alpha and beta frequencies. There was a symmetric well-formed moderate amplitude 8-9 Hz posterior dominant rhythm that was reactive to eye opening and closure. Hyperventilation was not done. Intermittent photic stimulation at various frequencies produced no abnormalities. Sleep was indicated by vertex waves and symmetric sleep spindles Interpretation This is a normal awake and asleep routine EEG. There was no electrographic seizures or epileptiform discharges. Clinical Correlation A normal EEG does not rule out epilepsy if there is a strong clinical suspicion.
[2016-04-06 09:33] LABS: BUN/CREATININE RATIO 21.8 (10-20); CALCIUM 8.9 mg/dl (8.5-10.1); CREATININE 0.93 mg/dl (0.60-1.40); MAGNESIUM 1.9 mg/dl (1.8-2.4); POTASSIUM 3.7 mmol/L (3.5-5.1)
[2016-04-06] MEDS ORDERED: PERFLUTREN LIPID MICROSPHERE (DEFINITY) IV ONE (10:26)
--- NOTE | 2016-04-06 12:11 | DIAGNOSTIC IMAGING REPORT ---
CHEST 2 VIEWS ROUTINE CLINICAL HISTORY: syncope ?pneumonia dyspnea COMPARISON STUDY: 06/25/2015 FINDINGS: Lungs are considered clear. Slight chronic interstitial prominence left base. Epidural catheter overlying the mid thoracic region. IMPRESSION: Chronic and postoperative change. No acute process. Electronically signed by: Jordy Law M.D. 04/06/2016 12:10 PM Dictated Date/Time: 04/06/2016 12:09 PM
--- NOTE | 2016-04-06 12:33 | CARDIOLOGY CONSULTATION ---
DATE OF CONSULTATION: 04/06/2016 DATE OF CONSULTATION: 04/06/2016. PERTINENT HISTORY: Mr. Romero is a 70-year-old white male admitted yesterday after an apparent episode of syncope. This consultation was ordered to assist in his management. According to the patient and his , the patient's typical morning routine is to administer a narcotic analgesic first thing in the morning prior to eating. Approximately 1 hour later, he has his breakfast. Yesterday, he administered his usual dose of OxyContin. After approximately 1 hour, the patient became unresponsive. His was "slapping his face" and yelling his name. He did not respond for approximately 5 minutes. There was no loss of bowel or bladder control. There no seizure-like activity. The patient has experienced "sleepy" spells in the evening time several times over the last 3-4 years. These are not typical of the episode as described above. The patient has never known of a cardiac event. He has never had a cardiac catheterization. He has never experienced presyncope, PND, orthopnea, palpitations, lower extremity edema, or claudication. Currently, the patient is resting comfortably in bed without complaints. PAST MEDICAL HISTORY: 1. Hypertension. 2. Hypercholesterolemia. 3. History of DVT. 4. Status post [place] filter. 5. Prostate carcinoma -- 2004. 6. Prostatectomy -- 2004. 7. XRT -- 2004. 8. Questionable bone marrow transplant. 9. Cervical disc disease. 10. General polyneuropathy. 11. Unsteady gait. 12. Lumbar laminectomy. 13. Obstructive sleep apnea. 14. Glaucoma. 15. History of fibular fracture November 2013. 16. Essential tremor. MEDICATIONS: 1. Prednisone 10 mg per day. 2. Zytiga 1 gram q. a.m. 3. Lyrica 300 mg b.i.d. 4. Zanaflex 4 mg t.i.d. 5. Travatan 1 drop at bedtime. 6. Colace 100 mg b.i.d. ALLERGIES: 1. METHOTREXATE. 2. NAPROXEN. SOCIAL HISTORY: The patient is and lives with his . 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 He stopped heavy tobacco use 4-5 years ago and admits to 1 beer every day. FAMILY HISTORY: Mother in her 80s from Alzheimer dementia. Father in his 80s from an aortic aneurysm. REVIEW OF SYSTEMS: A 10-point review of systems was negative except for that described above. PHYSICAL EXAMINATION: GENERAL: This is a well-developed, well-nourished elderly white male lying supine in bed without complaints. VITAL SIGNS: Blood pressure is 140/87 with a regular pulse of 56, respiratory rate is 18. The patient is afebrile at 36.8 degrees Celsius. Saturation 95% on room air. HEAD, EYES, EARS, NOSE, AND THROAT: Notes strabismus. NECK: Supple with full carotid upstrokes. There are no carotid bruits. Jugular venous pressure is flat at 90 degrees. There is no thyromegaly. CARDIOVASCULAR EXAMINATION: Reveals a regular rhythm with normal S1 and S2. Heart sounds are distant. No obvious murmurs. LUNGS: Clear without rales, rhonchi, or wheezes. ABDOMEN: Soft and nontender without bruits. EXTREMITIES: Reveal intact radial artery pulses bilaterally. There is no peripheral edema. LABORATORY DATA: CBC notes a hemoglobin of 13.9, hematocrit 41.3, white count 9.89, platelet count 170,000. Electrolytes note a sodium of 144, potassium 3.7, chloride 107, bicarb 28, BUN 20, creatinine 0.9, glucose 95. Three troponin I levels are undetectable at less than 0.5. His initial CK was 163 with a follow-up value of 170. MB fractions were 5.0 and 4.7 respectively. INR is 2.0. EKG notes poor quality and a sinus bradycardia with a left axis deviation. CT of the head notes no acute process. CT angiography is unremarkable. Telemetry notes sinus rhythm with a bradycardic rate in the 50s while sleeping. No pulses. IMPRESSION: Mr. Romero was admitted with an episode of unresponsiveness. By history, he typically takes a dose of a narcotic first thing in the morning upon awakening. He then waits 1 full hour prior to eating or taking other medications. I am suspicious that his episode yesterday could have been narcotic induced. There are no cardiac abnormalities identified at this time. It would be reasonable to watch another 24 hours on the monitor. We will review echocardiogram when available. PLAN: 1. Continue usual outpatient medications. 2. Observe on telemetry for another 24 hours. 3. Review echocardiogram once complete. 4. Further recommendations depending on his clinical course.
[2016-04-06] MEDS: OXYCODONE HCL IR 30 MG TAB (IMMEDIATE RELEASE) PO PRN (13:02)
--- NOTE | 2016-04-06 16:00 | ECHOCARDIOGRAM REPORT ---
*NOTICE TO RECEIVING [employer] This information is strictly Confidential and protected under [place] law. [place] law prohibits you from making any further disclosure of this information unless further disclosure is expressly permitted by the written consent of the person to whom it pertains or is authorized by law. A general authorization for the release of medical or other information is not sufficient for this purpose. Hospital accepts no responsibility if the information is made available to any other person, INCLUDING THE PATIENT. Interpretation Summary * Conclusions -- * Left ventricular systolic function is normal. * No regional wall motion abnormalities noted. * Ejection Fraction = 60-65%. * There is mild concentric left ventricular hypertrophy. * Grade I diastolic dysfunction, (abnormal relaxation pattern). Procedure Details * A complete two-dimensional transthoracic echocardiogram was performed (2D, M-mode, Doppler and color flow Doppler). * The study was technically difficult. * A contrast injection of Definity was performed to improve assessment of LV function. * Contrast was injected into an intravenous site in the left arm. * One vial of Definity ultrasound contrast was diluted in normal saline to a total volume of 10 ml. A total of '3' ml of solution was administered during imaging. * Lot # [id number] of Definity utilized for procedure. * Expiration date 1 APR 10. * The attending nurse who injected the contrast agent was HERNÁN COREAS RN. Left Ventricle * The left ventricle is normal in size. * There is mild concentric left ventricular hypertrophy. * Left ventricular systolic function is normal. * Ejection Fraction = 60-65%. * No regional wall motion abnormalities noted. Right Ventricle * The right ventricular cavity size is normal (basal dimension <4.2 cm in right ventricular apical 4-chamber view). * The right ventricular systolic function is normal as assessed by tricuspid annular plane systolic excursion (TAPSE) (normal >1.5 cm). Atria * The left atrium is mildly dilated. * Right atrium not well visualized. * There is no evidence of atrial septal defect, but resolution does not allow assessment for a patent foramen ovale. Mitral Valve * The mitral valve is grossly normal. * There is no mitral valve stenosis. * Significant mitral regurgitation is absent. Tricuspid Valve * The tricuspid valve is not well visualized, but is grossly normal. * There is no tricuspid stenosis. * Significant tricuspid regurgitation is absent. Aortic Valve * The aortic valve is not well visualized. * The aortic valve opens well. * No hemodynamically significant valvular aortic stenosis. * No aortic regurgitation is present. Pulmonic Valve * The pulmonary valve is not well seen, but the Doppler examination is normal without significant regurgitation or stenosis. Great Vessels * The aortic root is normal size. Pericardium/Pleural * There is no pericardial effusion. Great Vessels * Normal inferior vena cava size and collapsability with sniff indicates a normal right atrial pressure of 3 mmHg Left Ventricular Diastolic Function * Grade I diastolic dysfunction, (abnormal relaxation pattern). MMode 2D Measurements and Calculations IVSd 1.2 cm IVSs 1.8 cm LVIDd 5.1 cm LVIDs 3.6 cm LVPWd 1.4 cm LVPWs 1.4 cm IVS/LVPW 0.90 FS 29.9 % EDV(Teich) 122.8 ml ESV(Teich) 53.0 ml EF(Teich) 56.8 % EDV(cubed) 131.3 ml ESV(cubed) 45.2 ml EF(cubed) 65.6 % % IVS thick 45.4 % % LVPW thick 5.1 % LV mass(C)d 269.9 grams LV mass(C)dI 126.6 grams/m\S\2 LV mass(C)s 224.8 grams LV mass(C)sI 105.4 grams/m\S\2 SV(Teich) 69.8 ml SI(Teich) 32.7 ml/m\S\2 SV(cubed) 86.1 ml SI(cubed) 40.4 ml/m\S\2 Ao root diam 3.9 cm Ao root area 12.1 cm\S\2 LA dimension 4.5 cm LA/Ao 1.2 LVOT diam 2.1 cm LVOT area 3.4 cm\S\2 Doppler Measurements and Calculations MV E max yeyo 47.9 cm/sec MV A max yeyo 73.7 cm/sec MV E/A 0.65 MV P1/2t max yeyo 61.1 cm/sec MV P1/2t 97.8 msec MVA(P1/2t) 2.2 cm\S\2 MV dec slope 183.1 cm/sec\S\2 MV dec time 0.40 sec Ao V2 max 125.2 cm/sec Ao max PG 6.3 mmHg Ao max PG (full) 2.4 mmHg STEPHEN(V,A) 2.7 cm\S\2 STEPHEN(V,D) 2.7 cm\S\2 LV V1 max PG 3.9 mmHg LV V1 max 98.7 cm/sec
[2016-04-06] MEDS: WARFARIN SOD 5 MG TAB PO SCH (16:26)
--- NOTE | 2016-04-06 17:29 | Family Medicine Progress Note ---
Progress Note Date of Service Apr 06, 2016. Subjective Pt evaluation today including: conversation w/ patient, physical exam, chart review, lab review, review of studies, review of inpatient medication list Voiding: no voiding problems Hx reviewed with patient. His was not available when seen. Sudden onset unresponsive episode event with no prodromal symptoms. 5 minute episode with rapid resolution. He felt fine in the ER. He was noted to be diaphoretic and clammy at the time. Came on while at rest in chair. No injuries from event. Usually has no chest pain or shortness of breath on exertion. No recent illness , fevers, chills, cough, urinary Sx. All Other Systems: Reviewed and Negative Medications Current Inpatient Medications Medications (Trade) Dose Ordered Sig/Andrew Route Start Time Stop Time Status Last Admin Dose Admin Ioversol (Optiray 320) 120 ml UD PRN IV 04/05/16 16:15 04/09/16 16:14 Acetaminophen (Tylenol Tab) 650 mg Q4H PRN PO 04/05/16 16:15 05/05/16 16:14 Zolpidem Tartrate (Ambien Tab) 5 mg HSZ PRN PO 04/05/16 16:15 05/05/16 16:14 Nitroglycerin (Nitrostat Tab) 0.4 mg UD PRN SL 04/05/16 16:15 05/05/16 16:14 Prednisone (PredniSONE TAB) 10 mg DAILY PO 04/06/16 09:00 05/06/16 08:59 04/06/16 08:07 10 MG Pregabalin (Lyrica Cap) 300 mg BID PO 04/05/16 21:00 05/05/16 20:59 04/06/16 08:13 300 MG Travoprost (Travatan Z) 1 drops HS OPB 04/05/16 21:00 05/05/16 20:59 04/05/16 20:37 1 DROPS Warfarin Sodium (Coumadin Tab) 5 mg DAILY@1600 PO 04/05/16 16:00 05/05/16 15:59 04/06/16 16:26 5 MG Tizanidine HCl (Zanaflex Tab) 4 mg TID PO 04/05/16 21:00 05/05/16 20:59 04/06/16 13:04 4 MG Lorazepam (Ativan Inj) 0.5 mg Q4H PRN IV 04/05/16 16:15 05/05/16 16:14 Magnesium Hydroxide (Milk Of Magnesia Susp) 30 ml Q6H PRN PO 04/05/16 16:15 05/05/16 16:14 Diphenhydramine HCl (Benadryl Inj) 25 mg Q4H PRN IV 04/05/16 16:15 05/05/16 16:14 Al Hydrox/Mg Hydrox/ Simethicone 15 ml 15 ml Q4H PRN PO 04/05/16 16:15 05/05/16 16:14 Promethazine HCl/ Sodium Chloride (Phenergan Inj/ Nss 50ml) 50.5 ml @ 202 mls/hr Q4H PRN IV 04/05/16 16:15 05/05/16 16:14 Ondansetron HCl (Zofran Inj) 4 mg Q6H PRN IV 04/05/16 16:15 05/05/16 16:14 Docusate Sodium (coLACE CAP) 100 mg BID PO 04/05/16 21:00 05/05/16 20:59 04/06/16 08:06 100 MG Morphine Sulfate (MoRPHine SULFATE INJ) 2 mg Q2H PRN IV 04/05/16 16:15 04/19/16 16:14 Morphine Sulfate (MoRPHine SULFATE INJ) 4 mg Q2H PRN IV 04/05/16 16:15 04/19/16 16:14 Abiraterone Acetate (Zytiga) 1,000 mg QAM PO 04/06/16 09:00 05/06/16 08:59 04/06/16 08:07 1,000 MG Oxycodone HCl (Roxicodone Immediate Rel Tab) 30 mg Q4H PRN PO 04/06/16 12:00 04/20/16 11:59 04/06/16 13:02 30 MG Objective Vital Signs Date Time Temp Pulse Resp B/P Pulse Ox O2 Delivery O2 Flow Rate FiO2 04/06/16 16:05 Room Air 04/06/16 16:05 93 Room Air 04/06/16 15:41 36.9 56 18 125/77 94 Room Air 04/06/16 12:00 Room Air 04/06/16 12:00 93 Room Air 04/06/16 11:40 36.5 57 18 122/77 93 Room Air 04/06/16 07:59 Room Air 04/06/16 07:56 95 Room Air 04/06/16 04:00 Room Air 04/06/16 03:56 36.7 56 18 142/87 95 Room Air 04/06/16 00:00 Room Air 04/05/16 23:30 36.5 58 18 178/96 95 Room Air 04/05/16 20:00 Room Air 04/05/16 19:37 36.4 51 22 168/88 97 Room Air Physical Exam General Appearance: WD/WN, no apparent distress Eyes: normal inspection, PERRL, EOMI Neck: supple, no JVD Respiratory/Chest: chest non-tender, lungs clear, normal breath sounds, no respiratory distress, no accessory muscle use Cardiovascular: regular rate, rhythm, no murmur Abdomen: normal bowel sounds, non tender, soft Extremities: no pedal edema, no calf tenderness, normal capillary refill Neurologic/Psychiatric: alert, normal mood/affect, oriented x 3, + pertinent finding (left foot droop, multiple chronic polyneuropathies as managed by Dr Shi ) Skin: normal color, warm/dry, no rash Laboratory Results 04/06/16 08:51 Red Blood Count 5.18, Mean Corpuscular Volume 79.7, Mean Corpuscular Hemoglobin 26.8, Mean Corpuscular Hemoglobin Concent 33.7, Mean Platelet Volume 10.0, Neutrophils (%) (Auto) 66.4, Lymphocytes (%) (Auto) 18.6, Monocytes (%) (Auto) 11.5, Eosinophils (%) (Auto) 3.0, Basophils (%) (Auto) 0.2, Neutrophils # (Auto ) 6.56, Lymphocytes # (Auto) 1.84, Monocytes # (Auto) 1.14, Eosinophils # (Auto ) 0.30, Basophils # (Auto) 0.02 04/06/16 08:51 Test 04/06/16 00:45 04/06/16 08:05 04/06/16 08:51 Total Creatine Kinase 170 U/L (39-308) Creatine Kinase MB 4.7 ng/ml (0.5-3.6) Troponin I < 0.015 ng/ml (0-0.045) Creatine Kinase MB Ratio (0-3.0) White Blood Count 9.89 K/uL (4.8-10.8) Red Blood Count 5.18 M/uL (4.7-6.1) Hemoglobin 13.9 g/dL (14.0-18.0) Hematocrit 41.3 % (42-52) Mean Corpuscular Volume 79.7 fL (80-100) Mean Corpuscular Hemoglobin 26.8 pg (25-34) Mean Corpuscular Hemoglobin Concent 33.7 g/dl (32-36) Platelet Count 170 K/uL (130-400) Mean Platelet Volume 10.0 fL (7.4-10.4) Neutrophils (%) (Auto) 66.4 % Lymphocytes (%) (Auto) 18.6 % Monocytes (%) (Auto) 11.5 % Eosinophils (%) (Auto) 3.0 % Basophils (%) (Auto) 0.2 % Neutrophils # (Auto) 6.56 K/uL (1.4-6.5) Lymphocytes # (Auto) 1.84 K/uL (1.2-3.4) Monocytes # (Auto) 1.14 K/uL (0.11-0.59) Eosinophils # (Auto) 0.30 K/uL (0-0.5) Basophils # (Auto) 0.02 K/uL (0-0.2) RDW Standard Deviation 42.7 fL (36.4-46.3) RDW Coefficient of Variation 14.7 % (11.5-14.5) Immature Granulocyte % (Auto) 0.3 % Immature Granulocyte # (Auto) 0.03 K/uL (0.00-0.02) Prothrombin Time 22.2 SECONDS (9.0-12.0) Prothromb Time International Ratio 2.0 (0.9-1.1) Activated Partial Thromboplast Time 34.2 SECONDS (21.0-31.0) Partial Thromboplastin Ratio 1.3 Anion Gap 9.0 mmol/L (3-11) Est Creatinine Clear Calc Drug Dose 82.2 ml/min Estimated GFR () 94.7 Estimated GFR (Non- 81.7 BUN/Creatinine Ratio 21.8 (10-20) Calcium Level 8.9 mg/dl (8.5-10.1) Magnesium Level 1.9 mg/dl (1.8-2.4) Assessment and Plan 70 yo male with syncopal episode, appears cardiac per history and admitted with a bradycardia. Rapid resolution and no injuries from episode. Syncope - appears cardiac, will continue on telemetry, possible pauses vs. sinus bradley ( mutiple PVCs but no HB on telemetry), EKG sinus bradley with a lot of background noise. Serial troponin negative. - echo - EEG - will get full syncopal workup with UA + culture, and CXR. - Cardiology and Neurology consulted - Initially held medication which increase risk of falls including oxcodone and amitriptyline but given we are looking to capture another episode I will restart these. History Left lower extremity DVT - continue warfarin 5 mg by mouth daily. Prostate cancer - continue Zytiga 1000 mg by mouth daily, and prednisone 5 mg by mouth daily, will hold on a stress test steroids at this time. Glaucoma -continue Travatan Z and Xalatan as per outpatient. 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 Sleep apnea - CPAP VTE Prophylaxis - INR therapeutic Code - Full Disposition - Continue on telemetry to capture any abnormal arrhythmias to explain unresponsive episode Resident Physician Supervision Note: I was present with PGY2 Dr. Walt Farnsworth during the history and exam. I discussed the case with the resident and agree with the findings and plan as documented in the note. Any exceptions or clarifications are listed here: none. Since admission telemetry has been normal and w/o dysrhythmia. He feels well and offers no complaints of dizziness, presyncope, or sob/ dyspnea. No new neuro symptoms. VSS, afebrile gen - NAD heart - RR, bradley, s1, s2, no murmur lungs - CTA b/l neuro - no facial droop; strength 5/5 x 4 exts A/P: alteration in consciousness / syncope - etiology uncertain. toxic from oxycontin usage?? event occurred within an hour of taking such medication. cardiac work-up thus far negative. neuro work-up thus far negative. appreciate neuro/cardiology consultations monitor overnight and re-eval in AM Documented By: Walt Triplett MD Resident Tracking Resident Involvement: Resident Care Provided Care Provided: Adult [facility] Medicine
[2016-04-06 19:18] LABS: URINE APPEARANCE CLEAR (CLEAR); URINE BILIRUBIN NEG (NEG); URINE COLOR YELLOW; URINE EPITHELIAL CELL AUTO 0-5 /lpf (0-5); URINE NITRITE NEG (NEG); URINE SPECIFIC GRAVITY 1.011 (1.000-1.030); UROBILINOGEN NEG (NEG)
[2016-04-06 19:24] LABS: MANUAL MICROSCOPIC REQUIRED? NO; REVIEW REQ? NO
[2016-04-06] MEDS ORDERED: AMITRIPTYLINE HCL 10 MG TAB PO SCH (21:00)
[2016-04-06] MEDS: TRAVOPROST Z 0.004% OPH SOLN 2.5 ML BTL OPB SCH (21:18)
[2016-04-07 00:22] VITALS: BP 120/66; PULSE 57; TEMP 36.4; O2SAT 96
[2016-04-07 00:27] VITALS: BP 162/98; PULSE 57; TEMP 36.4; O2SAT 96
[2016-04-07 00:28] VITALS: BP 163/103
[2016-04-07 04:00] VITALS: BP 171/89; PULSE 67; TEMP 36.6; O2SAT 98
[2016-04-07] MEDS ORDERED: HydrALAZINE HCL 20 MG/ML VIAL IV. PRN (04:45)
[2016-04-07 07:34] VITALS: BP 155/96; PULSE 63; TEMP 36.5; O2SAT 97
[2016-04-07] MEDS: ABIRATERONE ACETATE 250 MG PO SCH (07:54)
[2016-04-07] MEDS: DOCUSATE SODIUM 100 MG CAP PO SCH (07:55)
--- NOTE | 2016-04-07 07:56 | Neurology Progress Notes ---
Neurology Progress Note Date of Service Apr 07, 2016. Subjective Patient had a good night last night. Nursing reports no new events. Patient has no pain or headache. He is not dizzy and has no lightheadedness or dizziness. Has had no episodes of sleepiness or confusion since admission. Laboratory studies were unremarkable yesterday. EEG was normal during a wakeful state. There were no focal abnormalities or potentially epileptogenic discharges seen. Echocardiogram was largely unremarkable. Cardiology consult opinions were noted. Patient's blood pressure has been elevated since admission. Overnight his pulse dropped into the 50s but he is not symptomatic with this. No other dysrhythmia was noted except for some bigeminy. Objective Date Time Temp Pulse Resp B/P Pulse Ox O2 Delivery O2 Flow Rate FiO2 04/07/16 07:34 36.5 63 17 155/96 97 Room Air 04/07/16 04:00 Room Air 04/07/16 04:00 36.6 67 20 171/89 98 Room Air 04/07/16 00:28 163/103 04/07/16 00:27 36.4 57 18 162/98 96 04/06/16 23:59 Room Air 04/06/16 20:00 Room Air 04/06/16 20:00 36.8 56 20 165/93 95 Room Air 04/06/16 16:05 Room Air 04/06/16 16:05 93 Room Air 04/06/16 15:41 36.9 56 18 125/77 94 Room Air 04/06/16 12:00 Room Air 04/06/16 12:00 93 Room Air 04/06/16 11:40 36.5 57 18 122/77 93 Room Air 04/06/16 07:59 Room Air 04/06/16 07:56 95 Room Air Last 24 Hours Test 04/06/16 08:05 04/06/16 08:51 04/06/16 19:00 04/07/16 04:44 Creatine Kinase MB Ratio White Blood Count 9.89 K/uL Red Blood Count 5.18 M/uL Hemoglobin 13.9 g/dL Hematocrit 41.3 % Mean Corpuscular Volume 79.7 fL Mean Corpuscular Hemoglobin 26.8 pg Mean Corpuscular Hemoglobin Concent 33.7 g/dl Platelet Count 170 K/uL Mean Platelet Volume 10.0 fL Neutrophils (%) (Auto) 66.4 % Lymphocytes (%) (Auto) 18.6 % Monocytes (%) (Auto) 11.5 % Eosinophils (%) (Auto) 3.0 % Basophils (%) (Auto) 0.2 % Neutrophils # (Auto) 6.56 K/uL Lymphocytes # (Auto) 1.84 K/uL Monocytes # (Auto) 1.14 K/uL Eosinophils # (Auto) 0.30 K/uL Basophils # (Auto) 0.02 K/uL RDW Standard Deviation 42.7 fL RDW Coefficient of Variation 14.7 % Immature Granulocyte % (Auto) 0.3 % Immature Granulocyte # (Auto) 0.03 K/uL Prothrombin Time 22.2 SECONDS Prothromb Time International Ratio 2.0 Activated Partial Thromboplast Time 34.2 SECONDS Partial Thromboplastin Ratio 1.3 Sodium Level 144 mmol/L Potassium Level 3.7 mmol/L Chloride Level 107 mmol/L Carbon Dioxide Level 28 mmol/L Anion Gap 9.0 mmol/L Blood Urea Nitrogen 20 mg/dl Creatinine 0.93 mg/dl Est Creatinine Clear Calc Drug Dose 82.2 ml/min Estimated GFR () 94.7 Estimated GFR (Non- 81.7 BUN/Creatinine Ratio 21.8 Random Glucose 95 mg/dl Calcium Level 8.9 mg/dl Magnesium Level 1.9 mg/dl Urine Color YELLOW Urine Appearance CLEAR Urine pH 7.0 Urine Specific Marion 1.011 Urine Protein NEG Urine Glucose (UA) NEG Urine Ketones NEG Urine Occult Blood TRACE Urine Nitrite NEG Urine Bilirubin NEG Urine Urobilinogen NEG Urine Leukocyte Esterase NEG Urine WBC (Auto) 0 /hpf Urine RBC (Auto) 5-10 /hpf Urine Hyaline Casts (Auto) 0 /lpf Urine Epithelial Cells (Auto) 0-5 /lpf Urine Bacteria (Auto) NEG Exam: He is awake and alert. His speech is without aphasia or dysarthria. Mood and affect are normal and appropriate. Thought processes are intact. Extraocular eye muscles are intact. There is no facial droop. Coordination is normal in the arms. Strength is symmetrical the limbs. There is no tremor or ataxia noted. Current Inpatient Medications Medications (Trade) Dose Ordered Sig/Andrew Route Start Time Stop Time Status Last Admin Dose Admin Ioversol (Optiray 320) 120 ml UD PRN IV 04/05/16 16:15 04/09/16 16:14 Acetaminophen (Tylenol Tab) 650 mg Q4H PRN PO 04/05/16 16:15 05/05/16 16:14 Nitroglycerin (Nitrostat Tab) 0.4 mg UD PRN SL 04/05/16 16:15 05/05/16 16:14 Prednisone (PredniSONE TAB) 10 mg DAILY PO 04/06/16 09:00 05/06/16 08:59 04/06/16 08:07 10 MG Pregabalin (Lyrica Cap) 300 mg BID PO 04/05/16 21:00 05/05/16 20:59 04/06/16 21:22 300 MG Travoprost (Travatan Z) 1 drops HS OPB 04/05/16 21:00 05/05/16 20:59 04/06/16 21:18 1 DROPS Warfarin Sodium (Coumadin Tab) 5 mg DAILY@1600 PO 04/05/16 16:00 05/05/16 15:59 04/06/16 16:26 5 MG Tizanidine HCl (Zanaflex Tab) 4 mg TID PO 04/05/16 21:00 05/05/16 20:59 04/06/16 21:16 4 MG Lorazepam (Ativan Inj) 0.5 mg Q4H PRN IV 04/05/16 16:15 05/05/16 16:14 Magnesium Hydroxide (Milk Of Magnesia Susp) 30 ml Q6H PRN PO 04/05/16 16:15 05/05/16 16:14 Diphenhydramine HCl (Benadryl Inj) 25 mg Q4H PRN IV 04/05/16 16:15 05/05/16 16:14 Al Hydrox/Mg Hydrox/ Simethicone 15 ml 15 ml Q4H PRN PO 04/05/16 16:15 05/05/16 16:14 Promethazine HCl/ Sodium Chloride (Phenergan Inj/ Nss 50ml) 50.5 ml @ 202 mls/hr Q4H PRN IV 04/05/16 16:15 05/05/16 16:14 Ondansetron HCl (Zofran Inj) 4 mg Q6H PRN IV 04/05/16 16:15 05/05/16 16:14 Docusate Sodium (coLACE CAP) 100 mg BID PO 04/05/16 21:00 05/05/16 20:59 04/06/16 21:16 100 MG Abiraterone Acetate (Zytiga) 1,000 mg QAM PO 04/06/16 09:00 05/06/16 08:59 04/06/16 08:07 1,000 MG Oxycodone HCl (Roxicodone Immediate Rel Tab) 30 mg Q4H PRN PO 04/06/16 12:00 04/20/16 11:59 04/06/16 13:02 30 MG Amitriptyline HCl (Elavil Tab) 10 mg HS PO 04/06/16 21:00 05/06/16 20:59 04/06/16 21:16 10 MG Hydralazine HCl (HydrALAZINE INJ) 10 mg Q4H PRN IV. 04/07/16 04:45 05/07/16 04:44 04/07/16 05:19 10 MG Impression 1. Episode of unresponsiveness 04-05-16. His history of events are noted above and they are somewhat vague and not specific for epilepsy/seizures. The event yesterday is more consistent with a cardiovascular origin. I do note a fluctuating blood pressure and bradycardia. Interestingly, he does have excessive sleepiness even in the morning after arising which could be due to his narcotic dose. This in combination with bradycardia and/or hypotension might produce an unresponsive episode. He has no new neurologic deficits on examination and has no evidence of encephalopathy or meningeal signs today. I doubt this represents a seizure disorder. EEG was unremarkable. There is no evidence of a new stroke. 2. 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 This is a combination of the polyneuropathy and radiculopathy from cervical spine and lumbar spine. 3. Spinal spondylosis in the cervical and lumbar spine post surgical procedures with decompression for spinal stenosis in the cervical spine in 2009. He had a significant myelopathy at that time. He still has some gait issues and a upgoing toe on the right which is residual to this. 4. Prostate cancer followed closely by urology. 5. Tremor. This is an essential tremor and there is no evidence of Parkinson's disease. 6. Sleep apnea, stable on nightly C Pap 7. Soft tissue inflammation noted on CT angiography in the larynx/pharynx area of uncertain etiology 8. Chronic pain Actually, he is doing fairly well with pain and believes he is had better pain control more recently than he has for years. Plan 1. Because of his lumbar spine stimulator, we cannot obtain any MRIs 2. I will not address or treat his chronic pain issues at this time. 3. I have no further neurologic testing or treatment recommendations at this time. Please contact me if I can be of further assistance on this case. I spoke with Dr. Farnsworth regarding this case including differential diagnosis and treatment options.
[2016-04-07] MEDS: PREGABALIN 150 MG CAP PO SCH (07:58)
[2016-04-07 08:08] LABS: HEMATOCRIT 40.4 % (42-52); MEAN CELL VOLUME 77.8 fL (80-100); MEAN CORPUSCULAR HGB CONC 33.4 g/dl (32-36); MEAN PLATELET VOLUME 9.4 fL (7.4-10.4); PLATELET COUNT 175 K/uL (130-400); RED BLOOD COUNT 5.19 M/uL (4.7-6.1); WHITE BLOOD COUNT 7.12 K/uL (4.8-10.8)
[2016-04-07] MEDS: OXYCODONE HCL IR 30 MG TAB (IMMEDIATE RELEASE) PO PRN (08:22)
[2016-04-07 08:41] LABS: CALCIUM 9.3 mg/dl (8.5-10.1); CREATININE 0.94 mg/dl (0.60-1.40); POTASSIUM 3.2 mmol/L (3.5-5.1)
[2016-04-07] MEDS ORDERED: POTA20TA16 PO (09:26)
--- NOTE | 2016-04-07 09:26 | CARDIOLOGY PROGRESS NOTE ---
DATE: 04/07/2016 SUBJECTIVE: Mr. Romero is resting comfortably in bed without complaints of chest pain or dyspnea. No syncope or presyncope. He is anxious for hospital discharge. OBJECTIVE: VITAL SIGNS: Blood pressure 155/96 with a regular pulse of 63. Respiratory rate is 18. The patient is afebrile at 36.5 degrees Celsius. Saturation 97% on room air. NECK: Supple with full carotid upstrokes. There are no carotid bruits. Jugular venous pressure is flat at 90 degrees. There is no thyromegaly. CARDIOVASCULAR: Reveals a regular rhythm with a normal S1 and S2. Heart sounds are distant. No obvious murmurs. LUNGS: Clear without rales, rhonchi, or wheezes. ABDOMEN: Soft without bruits. EXTREMITIES: Reveal intact radial artery pulses bilaterally. Trace pretibial edema is noted. DATA: CBC notes hemoglobin 13.5, hematocrit 40.4, white count 7.1, platelet count 175,000. Electrolytes note a sodium of 144, potassium 3.2, chloride 108, bicarb 25, BUN 24, creatinine 0.9, glucose 99. cmo & president notes sinus rhythm. No pauses or inappropriate bradycardias. IMPRESSION AND PLAN: 1. Unresponsive episode -- suspect this was related to his morning medications, especially including his narcotic. As before, he typically takes medications 1 full hour prior to eating. No evidence of significant bradydysrhythmias. No need for long-term event monitor nor Holter monitor at this time. 2. Hypertension -- controlled. 3. Hypercholesterolemia. 4. History of deep venous thrombosis -- status post Readlyn filter. 5. General polyneuropathy -- with unsteady gait. Management per Dr. Shi.
[2016-04-07 09:39] LABS: INR 2.3 (0.9-1.1); PARTIAL THROMBOPLASTIN RATIO 1.3; PROTHROMBIN TIME (PATIENT) 25.4 SECONDS (9.0-12.0)
--- NOTE | 2016-04-07 09:39 | Discharge Instructions ---
Discharge Instructions Admission Reason for Admission: Syncope, Unresponsive Episode (Walt Farnsworth MD) Discharge Discharge Diagnosis / Problem: Medication induced unresponsive episode (Walt Farnsworth MD) Discharge Goals Goal(s): Improve function (Walt Farnsworth MD) Activity Recommendations Activity Limitations: resume your previous activity (do not drive) . (Walt Farnsworth MD) Instructions / Follow-Up Instructions / Follow-Up You were diagnosed with an unresponsive episode most likely secondary to opiate medication. Other causes of unresponsiveness were investigated with a chest x- ray showing no acute findings. Urine analysis was negative for infection, culture pending on discharge. EKG showing normal sinus rhythm, with intermittent slow heart rate. Echocardiogram showed a normal heart. EEG which was normal, CT head and neck with angiography which showed nothing to explain unresponsive episode. You were observed on telemetry overnight which showed your heart rate dips to 50-60 bpm mostly when sleeping which is unlikely the cause of this episode. You had witnessed transient unresponsive episodes on the morning of discharge probably due to narcolepsy. This is likely a combination of opiate medications and sleep apnea. You should report these episodes to the DMV and and should not drive unless advised you can go back to driving in the future under guidance of a doctor. We recommend reducing you dose of oxycodone especially during times you notice unresponsive episodes occurring more, taking opiates with food, keep hydrated and compliance with CPAP. Incidentally on CT there is nonspecific inflammatory change involving the soft tissues of the laryngopharynx with is narrowing of the pharyngeal airway above the vocal cords. We have organized ENT follow up for this and you will be contacted with this appointment. Urine analysis also showed a trace of blood with 5-10 red blood cells. You should follow up with your urologist regarding this. We recommend following up with your primary care doctor within 1 week of discharge for hospital follow up. (Walt Farnsworth MD) Current Hospital Diet Patient's current hospital diet: Regular Diet (Walt Farnsworth MD) Discharge Diet Recommended Diet: Regular Diet Fluid Restriction: None (Walt Farnsworth MD) Pending Studies Studies pending at discharge: yes List of pending studies: Urine culture (Walt Farnsworth MD) Medical Emergencies . Who to Call and When: Medical Emergencies: If at any time you feel your situation is an emergency, please call 911 immediately. . (Walt Farnsworth MD) Non-Emergent Contact Non-Emergency issues call your: Primary Care Provider . (Walt Farnsworth MD) . "Provider Documentation" section prepared by Walt Farnsworth. (Walt Farnsworth MD) Attending Attestation: Pt seen & examined with PGY2 Dr. Walt Farnsworth on the day of discharge and I agree with his discharge instructions as outlined. Walt Triplett MD (Walt Triplett MD) VTE Core Measure Inpt VTE Proph given/why not?: Warfarin (Coumadin) (Walt Farnsworth MD)
[2016-04-07] MEDS ORDERED: POTASSIUM CHLORIDE 20 MEQ TABCR PO ONE (10:15)
--- NOTE | 2016-04-07 11:32 | Discharge Summary ---
Discharge Summary Admission Date: Apr 05, 2016 at 16:03 Discharge Date: Apr 07, 2016 Discharge Disposition: Home Principal Diagnosis: Unresponsive episode secondary to opiates Problems/Secondary Diagnoses: (1) Cerv Spondyl W Myelopathy (2) Cervical Disc Degen (3) Cervical Spondylosis (4) Hyperlipidemia Nec/Nos (5) Hypertension Nos (6) Lumb/Lumbosac Disc Degen (7) Lumbago (8) Lumbosacral Neuritis Nos (9) Lumbosacral Spondylosis (10) Osteoporosis Nos (11) Thrombocytopenia Nos Immunizations: Have You Had Influenza Vaccine: Yes Influenza Vaccine Date: Jan 09, 2012 History of Tetanus Vaccine?: No History of Pneumococcal: Yes Pneumococcal Date: Dec 31, 2004 History of Hepatitis B Vaccine: No Consultations: Cardiology (Dr Robbins) Neurology (Dr Shi) (Walt Farnsworth MD) Procedures: 1. CTA neck and brain- IMPRESSION: 1. There is no evidence of hemorrhage, mass effect, or acute territorial ischemia by CT criteria. 2. Unremarkable CT angiogram of the brain. 3. Unremarkable CT angiogram of the neck. 4. There is nonspecific inflammatory change involving the soft tissues of the laryngopharynx, with mild stranding also seen within the parapharyngeal fat at this level. This is nonspecific and could be related to instrumentation, or could represent an infectious/inflammatory process. Clinical correlation will be essential. There is narrowing of the pharyngeal airway above the vocal cords. Consider ENT assessment/follow-up if clinically warranted. 2. echocardiogram: n Conclusions -- n Left ventricular systolic function is normal. n No regional wall motion abnormalities noted. n Ejection Fraction = 60-65%. n There is mild concentric left ventricular hypertrophy. n Grade I diastolic dysfunction, (abnormal relaxation pattern). 3. EEG negative for seizure focus/activity (Walt Triplett MD) Medication Reconciliation New Medications: Potassium Ext Rel (Klor-Con) 20 Meq Tabcr 20 MEQ PO DAILY for 3 Days, #3 TAB Continued Medications: Abiraterone Acetate (Zytiga) 250 Mg Tab 1000 MG PO DAILY Amitriptyline HCl (Amitriptyline HCl) 10 Mg Tab 10 MG PO HS Docusate Sodium (Dok) 100 Mg Tab 50 MG PO DAILY Ferrous Fumarate (Iron) 18 Mg Tab Leuprolide Acetate (6 Month) (Lupron Depot) 45 Mg Inj 1 DOSE IM UD PRN for ELEVATED PSA Oxycodone Ir (Roxicodone Ir) 30 Mg Tab 30-45 MG PO Q4 PRN for Pain, TAB NO MORE THAN 4 TABS PER DAY Prednisone (Prednisone) 5 Mg Tab 5 MG PO DAILY Pregabalin (Lyrica) 300 Mg Cap 300 MG PO BID Tizanidine (Zanaflex) 4 Mg Cap 4 MG PO TID, CAP Travoprost (Travatan Z) 0.004 % Demetrius 1 DROP OPB HS Warfarin Sodium (Warfarin Sodium) 5 Mg Tab 5 MG PO DAILY TAKE 5 MG EVERY DAY OR OTHERWISE DIRECTED TO TAKE BY ANTICOAGULATION CLINIC/MD. [breating apparatus] () HS for snoring Discharge Exam Witnessed unresponsive episode this morning. Sudden relaxation of his jaw and started snoring while in the middle of talking to me, easily snapped out of it by noise or tactile stimulation, possible cataplexy. Otherwise he is back to his normal self as he has been since admission and keen to go home. All systems reviewed otherwise negative Physical Exam: General Appearance: WD/WN, no apparent distress Neck: supple, no JVD Respiratory/Chest: chest non-tender, lungs clear, normal breath sounds, no respiratory distress, no accessory muscle use Cardiovascular: regular rate, rhythm, no murmur Abdomen / GI: normal bowel sounds, non tender, soft Neurologic/Psychiatric: normal mood/affect, oriented x 3, + pertinent finding (chronic left foot drop and multiple chronic polyneuropathies both motor and sensory) (Walt Farnsworth MD) Hospital Course Mr Romero was admitted to [facility] after an unresponsive episode with associated clammy and diaphoresis. He was found to have a sinus bradycardia of 48 bpm on admission. He was evaluated by Neurology (Dr Shi) who does not feel this was an epileptic event and EEG was normal. He was kept on telemetry for 24 hours without any arrhythmias other than sinus bradycardia mostly while sleeping. Echo was unremarkable. CTA head and neck was unremarkable for syncope workup. He was evaluated by cardiology (Dr Robbins) who feel this was unlikely a cardiac arrhythmia and more likely from his opiate use potentially causing his heart rate and blood pressure to be too low as he took his oxycodone on an empty stomach on the morning of admission. He was noted to have a witnessed unresponsive event lasting for a few seconds while in bed after taking his oxycodone. It mostly resembles cataplexy and given the medications he is taking the opiates and his sleep apnea (he is not compliant with CPAP) are the most likely causes of these episodes. His has noticed many similar episodes while in bed. He was advised not to drive unless cleared by his primary care doctor. Incidentally on CT there is nonspecific inflammatory change involving the soft tissues of the laryngopharynx with is narrowing of the pharyngeal airway above the vocal cords. We have organized ENT follow up for this and he will be contacted with this appointment. Urine analysis also showed a trace of blood with 5-10 red blood cells. He was recommended to follow up with his urologist regarding this (I gather an appointment for gross hematuria is already made). No follow up for cardiology or neurology have been arranged. Total Time Spent: Less than 30 minutes This includes examination of the patient, discharge planning, medication reconciliation, and communication with other providers. (Walt Farnsworth MD) Resident Physician Supervision Note: I was present with PGY2 Dr. Walt Farnsworth during the discharge history and exam. I discussed the case with the resident and agree with the findings and plan as documented in this discharge summary. Any exceptions or clarifications are listed here: none. 70yo male who presented with an episode of unresponsiveness/alteration in consciousness. He underwent an extensive work-up for this as outlined above. Consultations by neurology and cardiology were obtained and both felt that this may have been medication induced (oxycodone). In fact, on the day of discharge, the patient had received a dose of his oxycodone and he was very sleepy from such. The patient reported that he often feels this way following oxycodone consumption. This, coupled with noncompliance with CPAP for OSWALDO, very well could have been the culprit in his presenting event. The only other issue that will need to be addressed is that of "nonspecific inflammatory change involving the soft tissues of the laryngopharynx" which was seen incidentally on imaging of the neck. He reported no recent dysphagia, odynophagia, sore throat, change in voice, etc. [id number] ENT consultation was advised. He voiced understanding. discharge exam - gen - NAD neck - no masses, no JVD, no goiter, no lymphadenopathy mouth - posterior pharynx normal heart - RRR, s1, s2 lungs - CTA b/l abd - soft ext - no edema neuro - strength 5/5 x 4 exts I recommended he discuss his pain medication regimen with his PCP if that is in fact the cause of his event and to NOT drive when under the influence of the narcotics. Further he was counseled on the importance of using his CPAP for OSWALDO. Walt Triplett MD Documented By: Walt Triplett Total Time Spent: Greater than 30 minutes (Walt Triplett MD) Discharge Instructions Please refer to the electronic Patient Visit Report (Discharge Instructions) for additional information. (Walt Farnsworth MD) Follow-Up Please follow up with your PCP within the next week (Walt Farnsworth MD) Additional Copies To Tres Sommers Jr,D.O. Resident Tracking Resident Involvement: Resident Care Provided Care Provided: Adult [facility] (Walt Farnsworth MD)
[2016-04-07 11:34] VITALS: BP 155/96; PULSE 63; TEMP 36.5; O2SAT 97
[2016-06-16] MEDS ORDERED: WARF2.5T8 PO (15:17)
[2016-06-16] MEDS ORDERED: CALC500C70 PO (15:18)
[2016-06-28] MEDS ORDERED: ENOX120I SQ (10:36)
[2016-06-28] MEDS ORDERED: OXYC-57 PO (11:31)
== END 2016-04-07 12:38 | disposition home or self-care (01) | DRG 312 ==
LOC: ENRESERVDT → ENRESERVTM → EDBD 10:37 → C.EDB 10:38 → C.2T 16:03
PROVIDERS: ADMIT Hospitalist; ATTEND Internal Medicine
DX: R55 Syncope and collapse (principal); M81.0 Age-related osteoporosis without current pathological fracture; Z85.46 Personal history of malignant neoplasm of prostate; D69.6 Thrombocytopenia, unspecified; I10 Essential (primary) hypertension; Z86.718 Personal history of other venous thrombosis and embolism; Z82.49 Family history of ischemic heart disease and other diseases of the circulatory system; Z83.6 Family history of other diseases of the respiratory system; Z79.899 Other long term (current) drug therapy; Z79.52 Long term (current) use of systemic steroids; Z79.01 Long term (current) use of anticoagulants; H40.9 Unspecified glaucoma; C61 Malignant neoplasm of prostate; G89.29 Other chronic pain; E78.5 Hyperlipidemia, unspecified; Z96.641 Presence of right artificial hip joint; R00.1 Bradycardia, unspecified; F17.210 Nicotine dependence, cigarettes, uncomplicated; G25.0 Essential tremor; E78.00 Pure hypercholesterolemia, unspecified; G47.33 Obstructive sleep apnea (adult) (pediatric); G62.9 Polyneuropathy, unspecified; M21.372 Foot drop, left foot; R26.9 Unspecified abnormalities of gait and mobility; T40.2X5A Adverse effect of other opioids, initial encounter; Z88.8 Allergy status to other drugs, medicaments and biological substances; Z88.6 Allergy status to analgesic agent; Z90.79 Acquired absence of other genital organ(s); Z82.0 Family history of epilepsy and other diseases of the nervous system; Z84.89 Family history of other specified conditions

== ENCOUNTER → 2016-06-28 | Day surgery (SDC) | payer OTHER ==
[2016-06-16 15:19] VITALS: BMI 31.0
--- NOTE | 2016-06-16 16:02 | PAT Medication Instructions ---
Service Date Jun 16, 2016. Current Home Medication List Abiraterone Acetate (Zytiga), 1,000 MG PO QAM Amitriptyline HCl (Amitriptyline HCl), 10 MG PO HS Calcium/Vitamin D (Os-Nathan 500 Plus D), 1 TAB PO QAM Docusate Sodium (Dok), 50 MG PO DAILY PRN for Constipation Ferrous Fumarate (Iron), for anemia Leuprolide Acetate (6 Month) (Lupron Depot), 1 DOSE IM UD PRN for ELEVATED PSA Oxycodone Ir (Roxicodone Ir), 30-45 MG PO Q4 PRN for Pain Prednisone (Prednisone), 5 MG PO QAM Pregabalin (Lyrica), 300 MG PO BID Tizanidine (Zanaflex), 4 MG PO TID Travoprost (Travatan Z), 1 DROP OPB HS Warfarin Sod (Jantoven), 2.5 MG PO qmonday Warfarin Sodium (Warfarin Sodium), 5 MG PO [id number] Medication Instructions For Your Scheduled Surgery Abiraterone Acetate (Zytiga), 1,000 MG PO QAM (check with prescribing physician for instructions) Leuprolide Acetate (6 Month) (Lupron Depot), 1 DOSE IM UD PRN every 6 months for ELEVATED PSA (continue as directed) - Check with surgeon/family doctor for instructions: Warfarin Sod (Jantoven), 2.5 MG PO qmonday Warfarin Sodium (Warfarin Sodium), 5 MG PO [id number] - Hold the following medications the morning of surgery: Ferrous Fumarate (Iron), for anemia Calcium/Vitamin D (Os-Nathan 500 Plus D), 1 TAB PO QAM Docusate Sodium (Dok), 50 MG PO DAILY PRN for Constipation Tizanidine (Zanaflex), 4 MG PO TID - Take the following medications the morning of surgery with a sip of water: Pregabalin (Lyrica), 300 MG PO BID Prednisone (Prednisone), 5 MG PO QAM Oxycodone Ir (Roxicodone Ir), 30-45 MG PO Q4 PRN for Pain (okay to take up to 4 hours prior to surgery if needed) - Take the following medications as scheduled the night before surgery: Travoprost (Travatan Z), 1 DROP OPB HS Pregabalin (Lyrica), 300 MG PO BID Ferrous Fumarate (Iron), for anemia Calcium/Vitamin D (Os-Nathan 500 Plus D), 1 TAB PO QAM Docusate Sodium (Dok), 50 MG PO DAILY PRN for Constipation Tizanidine (Zanaflex), 4 MG PO TID Oxycodone Ir (Roxicodone Ir), 30-45 MG PO Q4 PRN for Pain Amitriptyline HCl (Amitriptyline HCl), 10 MG PO HS If you have any questions please call us at [phone] (Simona Garcia PA-C) or [phone] or [phone]
[2016-06-16 16:25] LABS: BASO % 0.3 %; BASO ABS # 0.02 K/uL (0-0.2); COMPLETE YES; EOS % 1.6 %; HEMATOCRIT 38.7 % (42-52); IG% 0.1 %; LYMPH % 22.6 %; LYMPH ABS # 1.56 K/uL (1.2-3.4); MEAN CELL VOLUME 80.8 fL (80-100); MEAN CORPUSCULAR HEMOGLOBIN 25.9 pg (25-34); MEAN PLATELET VOLUME 10.1 fL (7.4-10.4); MONO % 7.4 %; PLATELET COUNT 156 K/uL (130-400); RED BLOOD COUNT 4.79 M/uL (4.7-6.1)
[2016-06-16 16:27] LABS: URINE APPEARANCE CLEAR (CLEAR); URINE BILIRUBIN NEG (NEG); URINE COLOR DK YELLOW; URINE NITRITE NEG (NEG); URINE SPECIFIC GRAVITY 1.028 (1.000-1.030); UROBILINOGEN NEG (NEG)
[2016-06-16 16:29] LABS: MANUAL MICROSCOPIC REQUIRED? NO; REVIEW REQ? NO
[2016-06-16 16:54] LABS: BUN/CREATININE RATIO 29.7 (10-20); CALCIUM 9.5 mg/dl (8.5-10.1)
--- NOTE | 2016-06-16 17:31 | DIAGNOSTIC IMAGING REPORT ---
LATERAL RADIOGRAPHS OF THE CERVICAL SPINE IN THE NEUTRAL, FLEXION AND EXTENSION POSITIONS CLINICAL HISTORY: PREOP, RHEUMATOID ARTHRITIS COMPARISON STUDY: CTA of the neck April 05, 2016. FINDINGS: There are findings consistent with a C3-C4 anterior discectomy and fusion. There is slight increase in the atlantoaxial interval with flexion, measuring 1.5 mm. No acute fracture is identified. Severe multilevel degenerative changes are present. IMPRESSION: 1. Minimal increase in the atlantoaxial interval with flexion, measuring 1.5 mm. 2. Status post C3-C4 anterior discectomy and fusion. 3. No acute fracture. 4. Severe multilevel degenerative changes of the cervical spine. Electronically signed by: Benigno Turner M.D. 06/16/2016 5:29 PM Dictated Date/Time: 06/16/2016 5:21 PM
[~2016-06-28] VITALS: Ht 177.8 cm; Wt 97.9 kg
[~2016-06-28] MED LIST changes: +ABIR1TAB PO; +AMT10 PO; +ATROPINE SULFATE 0.1 MG/ML 5ML SYR IV PRN; +CALC500C70 PO; +CIPROFLOXACIN / D5W 400 MG IV SCH; +DICY10CA12 PO; +DOCU100T PO; +ENOX120I SQ; +EpHEDrine SULFATE INJ 50 MG/ML AMP IV PRN; +EpHEDrine SULFATE INJ 50 MG/ML AMP ONE; +FENTANYL CITRATE INJ 50 MCG/1 ML 2 ML VIAL ONE; +FERR18TA2; +FERR1TAB13 PO; +HYDROmorphone INJ 2 MG/ML SYR/VIAL IV PRN; +LACTATED RINGER'S 1000ML 1,000 ML IV SCH; -LATA0.009 OPB; +LEUP1INJ6 IM; +LIDOCAINE HCL 2% 2 ML VIAL (20MG/ML) ONE; +MIDAZOLAM HCL 1 MG/ML 2ML VIAL ONE; +MITOMYCIN FOR INJ 40 MG in SYRINGE 40 ML IR SCH; +NALO1TAB2 PO; +ONDA4TAB10 SL; +ONDANSETRON INJ 2 MG/ML 2 ML VIAL IV PRN; +ONDANSETRON INJ 2 MG/ML 2 ML VIAL ONE; +OXYC-57 PO; +OXYC1TAB PO; +OXYCODONE/ACETAMINOPHEN 5-325 TAB PO PRN; +PHENYLEPHRINE 100MCG/ML 5ML SYR IV PRN; +PRED-301 PO; +PREG300C PO; +PRLSR20 PO; +PROPOFOL IV EMULSION 10 MG/ML 20 ML VIAL IV ONE; -RXC30 PO; +TIZA4CAP PO; +TRAV0.00 OPB; +WARF-246 PO; +WARF2.5T8 PO
[2016-06-28 09:48] VITALS: BP 180/95; PULSE 60; TEMP 37.2; O2SAT 96; Ht 177.8 cm; Wt 97.9 kg
--- NOTE | 2016-06-28 10:10 | History & Physical Bridge Note ---
H&P Re-Evaluation Bridge Note: I have examined the patient, reviewed the History & Physical and in the interval since the performance of the History & Physical I have noted the following changes of clinical significance: No changes noted
--- NOTE | 2016-06-28 11:29 | [facility] Post Operative Brief Note ---
Immediate Operative Summary Operative Date June 28, 2016. Pre-Operative Diagnosis Bladder cancer Post-Operative Diagnosis Same as preoperative diagnosis Procedure(s) Performed Urethral dilation, Bipolar Transurethral Resection Bladder Tumor, Instillation of Mitomycin Surgeon Dr. Viraj Mario [employer] Manager Surgeon(s) None Estimated Blood Loss 0 mL Findings papillary bladder tumor Specimens Permanent specimens A: Bladder tumor Drains scott Anesthesia general Complication(s) None Disposition Recovery Room / PACU
--- NOTE | 2016-06-28 11:32 | Discharge Instructions ---
Discharge Instructions Date of Service June 28, 2016. Visit Reason for Visit: Bladder Tumor Discharge Discharge Diagnosis / Problem: bladder cancer Discharge Goals Goal(s): Therapeutic intervention Activity Recommendations Activity Limitations: resume your previous activity (take it easy today) Anesthesia . Post Anesthesia Instructions: If you have had General Anesthesia or IV Sedation: * Do not drive today. * Resume driving when surgeon permits. * Do not make important decisions or sign legal documents today. * Call surgeon for: 1. Temperature elevations greater than 101 degrees F. 2. Uncontrollable pain. 3. Excessive bleeding. 4. Persistent nausea and vomiting. 5. Medication intolerance (nausea, vomiting or rash). * For nausea and vomiting use only clear liquids such as: tea, soda, bouillon until nausea subsides, then gradually increase diet as tolerated. * If you have any concerns or questions, call your surgeon's office. If physician is unavailable and it is an emergency, call 911 or go to the nearest emergency room. . Diet Recommendations Recommended Home Diet: resume previous diet Procedures Procedures Performed: Urethral dilation, Bipolar Transurethral Resection Bladder Tumor, Instillation of Mitomycin Pending Studies Studies pending at discharge: no Medical Emergencies . Who to Call and When: Medical Emergencies: If at any time you feel your situation is an emergency, please call 911 immediately. . Non-Emergent Contact Non-Emergency issues call your: Urologist . . "Provider Documentation" section prepared by Viraj Mario. . [place] Drug Monitoring Program Search Results: patient reviewed within database
--- NOTE | 2016-06-28 11:58 | Anesthesiology Progress Note ---
Anesthesia Post Op Note Date & Time June 28, 2016 at 11:58 Vital Signs Pain Intensity: 1 Vital Signs Past 12 Hours Date Time Temp Pulse Resp B/P Pulse Ox O2 Delivery O2 Flow Rate FiO2 06/28/16 11:45 59 16 158/88 98 Room Air 06/28/16 11:35 59 16 159/93 100 Mask 10 06/28/16 11:26 36.8 59 16 157/94 100 Mask 10 06/28/16 09:48 37.2 60 20 180/95 96 Room Air Notes Mental Status: alert / awake / arousable, participated in evaluation Pt Amnestic to Procedure: Yes Nausea / Vomiting: adequately controlled Pain: adequately controlled Airway Patency, RR, SpO2: stable & adequate BP & HR: stable & adequate Hydration State: stable & adequate Anesthetic Complications: no major complications apparent
--- NOTE | 2016-06-28 11:59 | OPERATIVE REPORT ---
DATE OF OPERATION: 06/28/2016 PREOPERATIVE DIAGNOSIS: Bladder tumor. POSTOPERATIVE DIAGNOSIS: Same. PROCEDURES: Cystoscopy, transurethral resection, fulguration of bladder tumor, instillation of mitomycin C into the bladder. FINDINGS: Cystoscopic exam revealed normal urethra. Prostate was absent, having been removed in the past. Bladder showed a tumor on the left posterior wall. Rest of the bladder was unremarkable. SURGEON: Dr. Mario. ANESTHESIA: General. DRAINS: A 16-British Ramirez catheter in bladder. COMPLICATIONS: None. SPECIMENS: Bladder tumor fragments. INDICATIONS: The patient is a 70-year-old white male with a history of prostate cancer, who on workup for hematuria was found to have a bladder tumor, is being brought in for resection. PROCEDURE IN DETAIL: After induction of an adequate general anesthetic and appropriate timeout, the patient was placed in the dorsal lithotomy position, lower abdomen and genitalia were prepped with Hibiclens and draped in a sterile fashion. Using a 22-British cystoscope, routine cystoscopic exam was performed with the above-noted findings. We then switched to a resection scope. Unfortunately, the meatus was somewhat tight, so Joaquim sounds were used to dilate the fossa navicularis to 26-British. I was still unable to get a continuous flow resection scope in, so we just used the inner sheath which went easily. Bladder tumor was then identified, it was resected with bipolar cautery, and the area was then fulgurated for hemostasis, made sure that I got deep enough to get into the muscle. Any bladder tumor fragments were evacuated with a Alisia syringe. Final view revealed no bladder tumor fragments remaining in the bladder. There was no bleeding from the resection site. The patient's bladder was then filled. The resection scope was removed. A 16-British Ramirez catheter inserted per urethra and the bladder was drained and then 40 mg of mitomycin C was instilled into the bladder. The Ramirez was clamped, it will be clamped for 2 hours and then unclamped. The patient tolerated this procedure well. All needle, sponge and instrument counts were correct at the end of the case and he was taken to the recovery room in stable condition. I attest to the content of the Intraoperative Record and any orders documented therein. Any exceptio ns are noted below.
[2016-06-28 12:25] VITALS: BP 191/97; PULSE 54; TEMP 36.8; O2SAT 95
[2016-06-28 12:55] VITALS: BP 161/80; PULSE 52; O2SAT 94
[2016-06-28 13:22] VITALS: BP 155/81; PULSE 56; O2SAT 97
[2016-06-28 13:55] VITALS: BP 190/93; PULSE 56; O2SAT 99
[2016-06-28 14:30] VITALS: BP 165/88; PULSE 60; TEMP 36.6; O2SAT 98
== END | disposition home or self-care (01) ==
LOC: C.ACU 09:31
PROVIDERS: ATTEND Urology
DX: C67.4 Malignant neoplasm of posterior wall of bladder (principal); C61 Malignant neoplasm of prostate; M19.90 Unspecified osteoarthritis, unspecified site; H40.9 Unspecified glaucoma; I10 Essential (primary) hypertension; G60.3 Idiopathic progressive neuropathy; M47.819 Spondylosis without myelopathy or radiculopathy, site unspecified; F17.200 Nicotine dependence, unspecified, uncomplicated; Z79.899 Other long term (current) drug therapy; Z79.01 Long term (current) use of anticoagulants

== ENCOUNTER 2016-08-11 16:26 | Emergency (ER) | payer OTHER ==
[~2016-08-11] VITALS: Ht 177.8 cm; Wt 91.6 kg
[~2016-08-11 16:26] MED LIST changes: -ATROPINE SULFATE 0.1 MG/ML 5ML SYR IV PRN; -CIPROFLOXACIN / D5W 400 MG IV SCH; -DICY10CA12 PO; -EpHEDrine SULFATE INJ 50 MG/ML AMP IV PRN; -EpHEDrine SULFATE INJ 50 MG/ML AMP ONE; -FENTANYL CITRATE INJ 50 MCG/1 ML 2 ML VIAL ONE; -FERR1TAB13 PO; -HYDROmorphone INJ 2 MG/ML SYR/VIAL IV PRN; -LACTATED RINGER'S 1000ML 1,000 ML IV SCH; -LIDOCAINE HCL 2% 2 ML VIAL (20MG/ML) ONE; -MIDAZOLAM HCL 1 MG/ML 2ML VIAL ONE; -MITOMYCIN FOR INJ 40 MG in SYRINGE 40 ML IR SCH; -NALO1TAB2 PO; -ONDA4TAB10 SL; -ONDANSETRON INJ 2 MG/ML 2 ML VIAL IV PRN; -ONDANSETRON INJ 2 MG/ML 2 ML VIAL ONE; -OXYCODONE/ACETAMINOPHEN 5-325 TAB PO PRN; -PHENYLEPHRINE 100MCG/ML 5ML SYR IV PRN; -PRLSR20 PO; -PROPOFOL IV EMULSION 10 MG/ML 20 ML VIAL IV ONE
[2016-08-11 16:30] VITALS: TEMP 36.3; Ht 177.8 cm; Wt 91.6 kg
[2016-08-11] MEDS ORDERED: METOCLOPRAMIDE HCL INJ 5 MG/ML 2 ML VIAL IV STA (16:39)
[2016-08-11] MEDS ORDERED: SODIUM CHLORIDE 0.9% 1000ML 1,000 ML IV STA (16:39)
[2016-08-11] MEDS ORDERED: HYDROmorphone INJ 1 MG/ML SYR IV STA (16:39)
[2016-08-11] MEDS ORDERED: NALO1TAB2 PO (16:42)
[2016-08-11] MEDS ORDERED: OPTIRAY 320 IV PRN (17:00)
[2016-08-11 17:26] LABS: BASO % 0.1 %; BASO ABS # 0.01 K/uL (0-0.2); COMPLETE YES; EOS % 1.3 %; HEMATOCRIT 40.6 % (42-52); IG% 0.1 %; LYMPH % 15.1 %; LYMPH ABS # 1.02 K/uL (1.2-3.4); MEAN CELL VOLUME 79.8 fL (80-100); MEAN CORPUSCULAR HEMOGLOBIN 26.5 pg (25-34); MEAN CORPUSCULAR HGB CONC 33.3 g/dl (32-36); MEAN PLATELET VOLUME 9.9 fL (7.4-10.4); MONO % 7.9 %; NEUT % 75.5 %; PLATELET COUNT 172 K/uL (130-400); RED BLOOD COUNT 5.09 M/uL (4.7-6.1); WHITE BLOOD COUNT 6.74 K/uL (4.8-10.8)
--- NOTE | 2016-08-11 17:37 | EMERGENCY ROOM VISIT NOTE ---
History Report prepared by Dmo: Lurdes Rausch Under the Supervision of: Dr. Kaushik Gonzalez M.D. First contact with patient: 16:32 Chief Complaint: ABDOMINAL PAIN Stated Complaint: LOWER ABD PAIN Nursing Triage Summary: triage note: pt reports generalized abd pain since tuesday. pt reports nausea. pt reports constipation - last bm was 2 days ago. History of Present Illness The patient is a 71 year old male who presents to the Emergency Room with complaints of worsening middle abdominal pain for the past 3 days. He is nauseated and has not had a bowel movement in the past two days. The patient takes oxycodone 30 mg tabs three times daily for his chronic back pain. He has had issues with constipation in the past and his PCP started him on Movantik for opioid-induced constipation. He states that this was helping for a few days , but suddenly 3 days ago, his pain began. He denies any vomiting. The patient rates his pain as a 10/10 in severity. He called his PCP today and was told to come to the ED for further evaluation. Source of History: patient Onset: 3 days ago Position: abdomen Symptom Intensity: 10/10 Timing: worsening Modifying Factors (Worsening): other (opioids) Associated Symptoms: + nausea, No vomiting Note: The patient notes constipation. Review of Systems See HPI for pertinent positives & negatives. A total of 10 systems reviewed and were otherwise negative. 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 Surgical Problems: (1) Bone Marrow Transplant (2) Hip Joint Replacement Status (3) 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 Family History Hypertension Lung disease Social History Smoking Status: Current Every Day Smoker Alcohol Use: occasionally Drug Use: none Marital Status: Housing Status: lives with family Occupation Status: retired Current/Historical Medications Scheduled Abiraterone Acetate (Zytiga), 1,000 MG PO QAM Amitriptyline HCl (Amitriptyline HCl), 10 MG PO HS Calcium/Vitamin D (Os-Nathan 500 Plus D), 1 TAB PO QAM Naloxegol Oxalate (Movantik), 25 MG PO DAILY Prednisone (Prednisone), 5 MG PO QAM Pregabalin (Lyrica), 300 MG PO BID Tizanidine (Zanaflex), 4 MG PO TID Travoprost (Travatan Z), 1 DROP OPB HS Warfarin Sod (Jantoven), 7.5 MG PO 2XWK Warfarin Sodium (Warfarin Sodium), 5 MG PO 5XWK Scheduled PRN Docusate Sodium (Dok), 50 MG PO DAILY PRN for Constipation Ferrous Fumarate (Iron), for anemia Leuprolide Acetate (6 Month) (Lupron Depot), 1 DOSE IM UD PRN for ELEVATED PSA Oxycodone Ir (Roxicodone Ir), 30-45 MG PO Q4 PRN for Pain Oxycodone/Acetaminophen 5MG/325MG (Percocet 5MG/325MG), 1-2 TABLETS PO Q4H PRN for Pain Allergies Coded Allergies: Adalimumab (Verified Allergy, Severe, GI SYMPTOMS, 08/11/16) Mirabegron (Verified Allergy, Intermediate, NUEROLOGICAL SYMPTOMS, 08/11/16 ) Methotrexate (Verified Allergy, Unknown, Blood platelets drop., 08/11/16) Naproxen (Verified Allergy, Unknown, dilusional, 08/11/16) Physical Exam Vital Signs Date Time Temp Pulse Resp B/P (MAP) Pulse Ox O2 Delivery O2 Flow Rate FiO2 08/11/16 20:08 70 16 183/109 99 08/11/16 17:14 56 08/11/16 16:30 36.3 70 22 183/95 97 Room Air Physical Exam GENERAL: Patient is a healthy-appearing well-nourished elderly male. HEAD: Normocephalic atraumatic EYES: Ocular movements intact pupils equal and react to light OROPHARYNX mucous membranes are moist no exudates present no erythema or edema present NECK: Supple no nuchal rigidity CHEST: Good equal expansion LUNGS: Clear and equal to auscultation CARDIAC: Normal S1 and S2 ABDOMEN: Soft, tender to the mid-umbilicus region, no guarding BACK: No CVA tenderness EXTREMITIES: No pain upon palpation normal muscle strength in all groups no clubbing cyanosis or edema NEURO: Patient is following commands and answering questions appropriately. Alert and oriented x3 Cranial Nerves 2-12 grossly intact Medical Decision & Procedures ER Provider Diagnostic Interpretation: Radiology results as stated below per my review and radiologist interpretation: CT ABD/PELVIS IV AND ORAL CONT CLINICAL HISTORY: Diffuse abdominal pain COMPARISON STUDY: 02/19/2015 TECHNIQUE: Following the IV administration of 93 mL of Optiray-320, CT scan of the abdomen and pelvis was performed from the lung bases to the proximal femurs. Images are reviewed in the axial, sagittal, and coronal planes. IV contrast was administered without complication. CT DOSE: 1090.80 mGy.cm FINDINGS: Lower chest: There are coronary artery calcifications. There is right basilar atelectasis/scarring. There are no significant pleural effusions. Liver: There is a stable 8 mm hypodensity within the right hepatic lobe, likely representing a cyst. There is persistent central intrahepatic biliary ductal dilatation. There is persistent dilatation of the common bile duct which measures 17 mm. Gallbladder: The gallbladder remains distended similar to the prior study Spleen: Normal in size and attenuation. Pancreas: No pancreatic masses are visualized. The pancreatic duct is at the upper limits of normal in diameter. Adrenal glands: Unremarkable. Kidneys: There are multiple bilateral renal cysts. The largest on the left measures 22 mm. The largest on the right measures 23 mm Bowel: There are no transition zones to indicate bowel obstruction. There is colonic diverticulosis. There are no acute peridiverticular inflammatory changes. There is no evidence of acute appendicitis. 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 Peritoneum: There is no intraperitoneal free air or abdominal ascites. Vasculature: There is a 24 x 19 x 18 mm saccular aneurysm arising from the left side of the infrarenal abdominal aorta.. An IVC filter is visualized. Adenopathy: None. Pelvic viscera: The pelvis is partially obscured due to artifact from bilateral hip replacements. Skeletal structures: There are postsurgical changes present within the lumbar spine. Intraspinal catheter is visualized.. IMPRESSION: 1. Stable intra and extra hepatic biliary ductal dilatation 2. Mildly distended gallbladder unchanged the preceding study 3. 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 24 x 19 x 18 mm saccular aneurysm arising from the left side of the infrarenal abdominal aorta. This remains similar in size to the prior study. There is no CT evidence of rupture. 5. No evidence of bowel obstruction. No evidence of free air 6. Diverticulosis. No evidence of acute diverticulitis 7. No evidence of acute appendicitis 8. No current evidence of pathologic adenopathy Electronically signed by: Hans Long M.D. 08/11/2016 7:34 PM Dictated Date/Time: 08/11/2016 7:20 PM Laboratory Results 08/11/16 17:10 Red Blood Count 5.09, Mean Corpuscular Volume 79.8, Mean Corpuscular Hemoglobin 26.5, Mean Corpuscular Hemoglobin Concent 33.3, Mean Platelet Volume 9.9, Neutrophils (%) (Auto) 75.5, Lymphocytes (%) (Auto) 15.1, Monocytes (%) (Auto) 7.9, Eosinophils (%) (Auto) 1.3, Basophils (%) (Auto) 0.1, Neutrophils # (Auto) 5.08, Lymphocytes # (Auto) 1.02, Monocytes # (Auto) 0.53, Eosinophils # (Auto) 0.09, Basophils # (Auto) 0.01 08/11/16 17:10 Test 08/11/16 17:10 08/11/16 17:25 White Blood Count 6.74 K/uL (4.8-10.8) Red Blood Count 5.09 M/uL (4.7-6.1) Hemoglobin 13.5 g/dL (14.0-18.0) Hematocrit 40.6 % (42-52) Mean Corpuscular Volume 79.8 fL (80-100) Mean Corpuscular Hemoglobin 26.5 pg (25-34) Mean Corpuscular Hemoglobin Concent 33.3 g/dl (32-36) Platelet Count 172 K/uL (130-400) Mean Platelet Volume 9.9 fL (7.4-10.4) Neutrophils (%) (Auto) 75.5 % Lymphocytes (%) (Auto) 15.1 % Monocytes (%) (Auto) 7.9 % Eosinophils (%) (Auto) 1.3 % Basophils (%) (Auto) 0.1 % Neutrophils # (Auto) 5.08 K/uL (1.4-6.5) Lymphocytes # (Auto) 1.02 K/uL (1.2-3.4) Monocytes # (Auto) 0.53 K/uL (0.11-0.59) Eosinophils # (Auto) 0.09 K/uL (0-0.5) Basophils # (Auto) 0.01 K/uL (0-0.2) RDW Standard Deviation 41.5 fL (36.4-46.3) RDW Coefficient of Variation 14.3 % (11.5-14.5) Immature Granulocyte % (Auto) 0.1 % Immature Granulocyte # (Auto) 0.01 K/uL (0.00-0.02) Anion Gap 8.0 mmol/L (3-11) Est Creatinine Clear Calc Drug Dose 74.9 ml/min Estimated GFR () 86.2 Estimated GFR (Non- 74.3 BUN/Creatinine Ratio 22.0 (10-20) Calcium Level 9.2 mg/dl (8.5-10.1) Total Bilirubin 0.8 mg/dl (0.2-1) Direct Bilirubin 0.2 mg/dl (0-0.2) Aspartate Amino Transf (AST/SGOT) 19 U/L (15-37) Alanine Aminotransferase (ALT/SGPT) 23 U/L (12-78) Alkaline Phosphatase 88 U/L (45-117) Total Protein 7.8 gm/dl (6.4-8.2) Albumin 3.7 gm/dl (3.4-5.0) Lipase 876 U/L (73-393) Urine Color DK YELLOW Urine Appearance CLEAR (CLEAR) Urine pH 6.0 (4.5-7.5) Urine Specific [place] 1.025 (1.000-1.030) Urine Protein 1+ (NEG) Urine Glucose (UA) NEG (NEG) Urine Ketones 1+ (NEG) Urine Occult Blood 3+ (NEG) Urine Nitrite NEG (NEG) Urine Bilirubin NEG (NEG) Urine Urobilinogen NEG (NEG) Urine Leukocyte Esterase NEG (NEG) Urine WBC (Auto) 1-5 /hpf (0-5) Urine RBC (Auto) >30 /hpf (0-4) Urine Hyaline Casts (Auto) 1-5 /lpf (0-5) Urine Epithelial Cells (Auto) 5-10 /lpf (0-5) Urine Bacteria (Auto) NEG (NEG) Labs reviewed by ED physician. Medications Administered Medications (Trade) Dose Ordered Sig/Andrew Route Start Time Stop Time Status Last Admin Dose Admin Sodium Chloride 1,000 ml @ 999 mls/hr Q1H1M STAT IV 08/11/16 16:39 08/11/16 17:39 DC 08/11/16 16:39 999 MLS/HR Hydromorphone HCl (Dilaudid Inj) 1 mg NOW STAT IV 08/11/16 16:39 08/11/16 16:41 DC 08/11/16 17:20 1 MG Metoclopramide HCl (Reglan Inj) 10 mg NOW STAT IV 08/11/16 16:39 08/11/16 16:41 DC 08/11/16 16:39 10 MG Ondansetron HCl (Zofran 8mg Iv) 8 mg NOW STAT IV 08/11/16 17:42 08/11/16 17:43 DC 08/11/16 18:12 8 MG Magnesium Citrate (Citrate Of Magnesia Soln) 296 ml NOW STAT PO 08/11/16 19:53 08/11/16 19:54 DC 08/11/16 19:59 296 ML ED Course 1632: Past medical records reviewed. The patient was evaluated in room A4B. A complete history and physical examination was performed. 1639: Reglan 10 mg IV, Dilaudid 1 mg IV, NSS 1000 ml @ 999 mls/hr IV 1742: Zofran 8 mg IV 1942: I reassessed the patient at this time. He is feeling better and resting comfortably. I discussed the results and treatment plan with the patient. I answered all pertaining questions that he had. He expressed understanding and verbalized agreement. The patient will be discharged home. 1952: Magnesium Citrate 296 ml PO Medical Decision Differential diagnosis: Etiologies such as appendicitis, diverticulitis, PUD, biliary pathology, UTI, pancreatitis, obstruction, mesenteric ischemia, aortic pathology, infections, inflammatory bowel disease, renal colic, as well as others were entertained. Medication Reconciliation: I attest that I have personally reviewed the patient' s current medication list. Blood Pressure Screening: Patient was found to have an elevated blood pressure and was referred to their primary care doctor for recheck and further treatment. This is a 71-year-old male who presents emergency department complaining of diffuse abdominal pain. I'm concerned over a obstruction as the patient has not had a stools movement and quite some time. The patient has a normal CBC normal renal profile normal liver profile normal lipase. An IV was established , patient given normal saline bolus. The patient's CT is concerning for an aneurysm however this is unchanged from previous. I did discuss this at length with the patient along with the patient's diverticula. He is going to follow- up with Dr. Juan for the aneurysm and is going to follow-up with gastroenterology for the diverticula. I tried explaining all the patient's findings on his CAT scan however he is in a hurry to leave. He is going to have magnesium citrate at home I recommended the patient return to emergency department if he develops severe abdominal pain along with fevers. Impression Primary Impression: Abdominal pain Scribe Attestation The scribe's documentation has been prepared under my direction and personally reviewed by me in its entirety. I confirm that the note above accurately reflects all work, treatment, procedures, and medical decision making performed by me. Departure Information Dispostion Home / Self-Care Referrals Tres Sommers Jr,D.O. (PCP) Virginie Murguia, Marty Pedersen M.D. Forms HOME CARE DOCUMENTATION FORM, IMPORTANT VISIT INFORMATION Patient Instructions Abdominal Pain - [facility], ED Diet Clear Liquid, Hypertension Dc, My [facility], Pancreatitis Additional Instructions Take 1/2 bottle of Magnesium citrate Repeat second half in six hours Clear liquid diet next 48 hours Follow up with [facility] with DR Juan Follow up with Dr Murguia for abd pain STOP taking Movantik You were found to have an elevated blood pressure today (>120 sytolic or >90 diastolic). Per medicare guidelines, you need to follow up with this blood pressure screening with your Primary Care Physician (PCP). For a new PCP call [phone]. You received narcotic or benzodiazepene medication while in the emergency room today. Do not drive, operate heavy machinery, or drink alcohol under the influence of this medication. You have been examined and treated today on an emergency basis only. This is not a substitute for, or an effort to provide, complete comprehensive medical care. It is impossible to recognize and treat all injuries or illnesses in a single emergency department visit. It is therefore important that you follow up closely with DR Sommers. Call as soon as possible for an appointment. Thank you for your time and consideration. I look forward to speaking with you again soon. Please don't hesitate to call us if you have any questions. Problem Qualifiers Primary Impression: Abdominal pain Abdominal location: generalized Qualified Codes: R10.84 - Generalized abdominal pain
[2016-08-11] MEDS ORDERED: ONDANSETRON 8 MG/54 ML D5W IV STA (17:42)
[2016-08-11 17:47] LABS: CALCIUM 9.2 mg/dl (8.5-10.1); POTASSIUM 3.6 mmol/L (3.5-5.1)
[2016-08-11 17:50] LABS: URINE APPEARANCE CLEAR (CLEAR); URINE BILIRUBIN NEG (NEG); URINE COLOR DK YELLOW; URINE NITRITE NEG (NEG); URINE SPECIFIC GRAVITY 1.025 (1.000-1.030); UROBILINOGEN NEG (NEG)
[2016-08-11 17:54] LABS: MANUAL MICROSCOPIC REQUIRED? NO; REVIEW REQ? NO
--- NOTE | 2016-08-11 19:35 | DIAGNOSTIC IMAGING REPORT ---
CT ABD/PELVIS IV AND ORAL CONT CLINICAL HISTORY: Diffuse abdominal pain COMPARISON STUDY: 02/19/2015 TECHNIQUE: Following the IV administration of 93 mL of Optiray-320, CT scan of the abdomen and pelvis was performed from the lung bases to the proximal femurs. Images are reviewed in the axial, sagittal, and coronal planes. IV contrast was administered without complication. CT DOSE: 1090.80 mGy.cm FINDINGS: Lower chest: There are coronary artery calcifications. There is right basilar atelectasis/scarring. There are no significant pleural effusions. Liver: There is a stable 8 mm hypodensity within the right hepatic lobe, likely representing a cyst. There is persistent central intrahepatic biliary ductal dilatation. There is persistent dilatation of the common bile duct which measures 17 mm. Gallbladder: The gallbladder remains distended similar to the prior study Spleen: Normal in size and attenuation. Pancreas: No pancreatic masses are visualized. The pancreatic duct is at the upper limits of normal in diameter. Adrenal glands: Unremarkable. Kidneys: There are multiple bilateral renal cysts. The largest on the left measures 22 mm. The largest on the right measures 23 mm Bowel: There are no transition zones to indicate bowel obstruction. There is colonic diverticulosis. There are no acute peridiverticular inflammatory changes. There is no evidence of acute appendicitis. 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 Peritoneum: There is no intraperitoneal free air or abdominal ascites. Vasculature: There is a 24 x 19 x 18 mm saccular aneurysm arising from the left side of the infrarenal abdominal aorta.. An IVC filter is visualized. Adenopathy: None. Pelvic viscera: The pelvis is partially obscured due to artifact from bilateral hip replacements. Skeletal structures: There are postsurgical changes present within the lumbar spine. Intraspinal catheter is visualized.. IMPRESSION: 1. Stable intra and extra hepatic biliary ductal dilatation 2. Mildly distended gallbladder unchanged the preceding study 3. 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 24 x 19 x 18 mm saccular aneurysm arising from the left side of the infrarenal abdominal aorta. This remains similar in size to the prior study. There is no CT evidence of rupture. 5. No evidence of bowel obstruction. No evidence of free air 6. Diverticulosis. No evidence of acute diverticulitis 7. No evidence of acute appendicitis 8. No current evidence of pathologic adenopathy Electronically signed by: Hans Long M.D. 08/11/2016 7:34 PM Dictated Date/Time: 08/11/2016 7:20 PM
[2016-08-11] MEDS ORDERED: MAGNESIUM CITRATE 296 ML/BTL PO STA (19:53)
[2016-08-11 20:08] VITALS: BP 183/109; PULSE 70; O2SAT 99
== END 2016-08-11 20:08 | disposition home or self-care (01) ==
LOC: C.EDB 16:27 → C.EDA 20:08
DX: R10.84 Generalized abdominal pain (principal); M54.9 Dorsalgia, unspecified; G89.29 Other chronic pain; E78.5 Hyperlipidemia, unspecified; I10 Essential (primary) hypertension; Z85.46 Personal history of malignant neoplasm of prostate; M81.0 Age-related osteoporosis without current pathological fracture; Z87.01 Personal history of pneumonia (recurrent); Z86.718 Personal history of other venous thrombosis and embolism; Z96.649 Presence of unspecified artificial hip joint; Z82.49 Family history of ischemic heart disease and other diseases of the circulatory system; F17.210 Nicotine dependence, cigarettes, uncomplicated; Z79.01 Long term (current) use of anticoagulants; Z79.899 Other long term (current) drug therapy

== ENCOUNTER 2016-08-16 13:36 | Emergency (ER) | payer OTHER ==
[~2016-08-16] VITALS: Ht 180.3 cm; Wt 96.0 kg
[~2016-08-16 13:36] MED LIST changes: -ENOX120I SQ; +NALO1TAB2 PO
[2016-08-16 13:47] VITALS: TEMP 36.5; Ht 180.3 cm; Wt 96.0 kg
[2016-08-16] MEDS ORDERED: ONDANSETRON INJ 2 MG/ML 2 ML VIAL IV STA (14:13)
[2016-08-16] MEDS ORDERED: MoRPHine SULFATE 4 MG/ML 1 ML CARP\\VIAL IV STA (14:13)
[2016-08-16 15:13] LABS: CALCIUM 9.4 mg/dl (8.5-10.1); POTASSIUM 3.3 mmol/L (3.5-5.1)
[2016-08-16 15:17] LABS: BUN/CREATININE RATIO 15.8 (10-20); CREATININE 0.98 mg/dl (0.60-1.40)
[2016-08-16 15:23] LABS: PARTIAL THROMBOPLASTIN RATIO 1.8; PROTHROMBIN TIME (PATIENT) > 100.0 SECONDS (9.0-12.0)
[2016-08-16 15:25] LABS: INR > 8.0 (0.9-1.1)
[2016-08-16] MEDS ORDERED: PHYTONADIONE INJ 10 MG in SODIUM CHLORIDE 0.9% 50ML 50 ML IV ONE (15:30)
[2016-08-16 16:03] LABS: URINE APPEARANCE CLEAR (CLEAR); URINE BILIRUBIN NEG (NEG); URINE COLOR YELLOW; URINE EPITHELIAL CELL AUTO 0-5 /lpf (0-5); URINE NITRITE NEG (NEG); URINE PH 7.5 (4.5-7.5); URINE SPECIFIC GRAVITY 1.014 (1.000-1.030); UROBILINOGEN NEG (NEG)
[2016-08-16 16:04] LABS: MANUAL MICROSCOPIC REQUIRED? NO; REVIEW REQ? NO
[2016-08-16] MEDS ORDERED: FERR1TAB13 PO (16:12)
[2016-08-16] MEDS ORDERED: ONDA4TAB10 SL (16:20)
[2016-08-16] MEDS ORDERED: PRLSR20 PO (16:21)
[2016-08-16] MEDS ORDERED: DICY10CA12 PO (16:22)
[2016-08-16 16:35] LABS: COMPLETE YES
[2016-08-16 16:55] LABS: BASO % 0.4 %; BASO ABS # 0.02 K/uL (0-0.2); EOS % 1.2 %; LYMPH % 23.9 %; LYMPH ABS # 1.22 K/uL (1.2-3.4); MEAN CELL VOLUME 78.7 fL (80-100); MEAN CORPUSCULAR HGB CONC 34.3 g/dl (32-36); MEAN PLATELET VOLUME 10.4 fL (7.4-10.4); MONO % 9.4 %; NEUT % 65.1 %; PLATELET COUNT 177 K/uL (130-400); RED BLOOD COUNT 5.08 M/uL (4.7-6.1)
[2016-08-16] MEDS ORDERED: OPTIRAY 320 IV PRN (17:00)
--- NOTE | 2016-08-16 17:08 | DIAGNOSTIC IMAGING REPORT ---
ABDOMEN AND PELVIS CTA WITH IV CONTRAST CT DOSE: 1029.89 mGycm HISTORY: Generalized abdominal pain. Evaluate for aneurysm. TECHNIQUE: Multiaxial CT images of the abdomen and pelvis were performed following the use of intravenous contrast to evaluate the aorta. Maximal intensity projection images were also obtained.. COMPARISON STUDY: Abdomen and pelvis CT 08/11/2016. FINDINGS: Lower chest: There are coronary artery calcifications. There is right basilar atelectasis/scarring. There are no significant pleural effusions. Liver: There is a stable 8 mm hypodensity within the right hepatic lobe, likely representing a cyst. There is persistent central intrahepatic biliary ductal dilatation. There is persistent dilatation of the common bile duct which measures 12 mm. Gallbladder: The gallbladder remains distended similar to the prior study Spleen: Normal in size and attenuation. Pancreas: No pancreatic masses are visualized. The pancreatic duct is at the upper limits of normal in diameter. Adrenal glands: Unremarkable. Kidneys: There are multiple bilateral renal cysts. The largest on the left measures 22 mm. The largest on the right measures 23 mm Bowel: There are no transition zones to indicate bowel obstruction. There is colonic diverticulosis. There are no acute peridiverticular inflammatory changes. There is no evidence of acute appendicitis. 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 Peritoneum: There is no intraperitoneal free air or abdominal ascites. Vasculature: There is a 24 x 19 x 18 mm saccular aneurysm arising from the left side of the infrarenal abdominal aorta.. An IVC filter is visualized. The celiac artery, mesenteric artery, and renal arteries are widely patent. There is mild to moderate calcified plaque within the abdominal aorta. The bilateral common iliac and external iliac arteries are also widely patent. There is also stable 2.0 x 0.7 cm penetrating ulcer versus an aneurysm within the right posterior aspect of the abdominal aorta best seen on image 173 Adenopathy: None. Pelvic viscera: The pelvis is partially obscured due to artifact from bilateral hip replacements. Skeletal structures: There are postsurgical changes present within the lumbar spine. Intraspinal catheter is visualized.. Severe degenerative changes within the lumbar spine and levoscoliosis are again noted. IMPRESSION: 1. Stable intra and extra hepatic biliary ductal dilatation 2. Mildly distended gallbladder unchanged from the preceding study 3. 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 A 24 x 19 x 18 mm saccular aneurysm arising from the left side of the infrarenal abdominal aorta. There is also a 2.0 x 0.7 cm penetrating ulcer versus aneurysm within the right posterior aspect of the abdominal aorta. These remain similar in size to the prior study. There is no CT evidence of rupture. 5. No evidence of bowel obstruction. No evidence of free air 6. Diverticulosis. No evidence of acute diverticulitis 7. No evidence of acute appendicitis 8. No current evidence of pathologic adenopathy Electronically signed by: Stefan Solano M.D. 08/16/2016 5:07 PM Dictated Date/Time: 08/16/2016 4:57 PM
[2016-08-16] MEDS ORDERED: MoRPHine SULFATE 2 MG/ML CARP IV STA (17:39)
[2016-08-16 18:18] VITALS: BP 180/87; PULSE 57; O2SAT 99
--- NOTE | 2016-08-16 18:57 | EMERGENCY ROOM VISIT NOTE ---
History Report prepared by Dom: Lurdes Rausch Under the Supervision of: Dr. Jono Vital M.D. First contact with patient: 14:00 Chief Complaint: ABDOMINAL PAIN Stated Complaint: ABDOMINAL PAIN PERSISTING Nursing Triage Summary: triage note: pt reports he was seen in ed last week and dx with gall stones. pt was seen by dr johnstons pa on tuesday. pt reports continued generalized pain. History of Present Illness The patient is a 71 year old male who presents to the Emergency Room with complaints of persistent abdominal pain for the past week. The patient was seen in the ED five days ago for this pain. He had a CT scan at that time and was discharged home with instructions to follow up with Dr. Murguia. He saw Dr. Murguia's PA-C three days ago and was placed on Bentyl and omeprazole. He states that his pain has improved, but it is still present. The patient rates his current pain as a 10/10 in severity. He also reports nausea. He denies fevers, chest pain, shortness of breath, vomiting, diarrhea, melena, hematochezia, and urinary symptoms. The patient takes oxycodone 30 mg tabs three times daily for his chronic back pain. 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 He is on Coumadin. He has an appointment with vascular surgery on August 23 to follow-up about his aneurysm. Source of History: patient, spouse/significant other Onset: 1 week ago Position: abdomen Symptom Intensity: 10/10 Timing: other (persistent) Modifying Factors (Worsening): other (Bentyl and omeprazole) Associated Symptoms: + nausea, No fevers, No chest pain, No SOB, No vomiting , No melena, No hematochezia, No diarrhea, No urinary symptoms Review of Systems See HPI for pertinent positives & negatives. A total of 10 systems reviewed and were otherwise negative. 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 Surgical Problems: (1) Bone Marrow Transplant (2) Hip Joint Replacement Status (3) 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 Family History Hypertension Lung disease Social History Smoking Status: Current Every Day Smoker Alcohol Use: occasionally Drug Use: none Marital Status: Housing Status: lives with family Occupation Status: retired Current/Historical Medications Scheduled Abiraterone Acetate (Zytiga), 1,000 MG PO QAM Amitriptyline HCl (Amitriptyline HCl), 10 MG PO HS Calcium/Vitamin D (Os-Nathan 500 Plus D), 1 TAB PO QAM Ferrous Sulfate (Kp Ferrous Sulfate), 1 TAB PO BID Omeprazole (Prilosec), 20 MG PO BID Prednisone (Prednisone), 5 MG PO QAM Pregabalin (Lyrica), 300 MG PO BID Tizanidine (Zanaflex), 4 MG PO Q2D Travoprost (Travatan Z), 1 DROP OPB HS Warfarin Sod (Jantoven), 7.5 MG PO 2XWK Warfarin Sodium (Warfarin Sodium), 5 MG PO 5XWK Scheduled PRN Dicyclomine Hcl (Dicyclomine Hcl), 1 CAP PO BID PRN for Pain Docusate Sodium (Dok), 50 MG PO DAILY PRN for Constipation Leuprolide Acetate (6 Month) (Lupron Depot), 1 DOSE IM UD PRN for ELEVATED PSA Ondasetron Odt (Zofran Odt), 4 MG SL Q8H PRN for Nausea Oxycodone Ir (Roxicodone Ir), 30 MG PO Q4 PRN for Pain Allergies Coded Allergies: Adalimumab (Verified Allergy, Severe, GI SYMPTOMS, 08/16/16) Mirabegron (Verified Allergy, Intermediate, NUEROLOGICAL SYMPTOMS, 08/16/16 ) Methotrexate (Verified Allergy, Unknown, Blood platelets drop., 08/16/16) Naproxen (Verified Allergy, Unknown, dilusional, 08/16/16) Physical Exam Vital Signs Date Time Temp Pulse Resp B/P (MAP) Pulse Ox O2 Delivery O2 Flow Rate FiO2 08/16/16 18:18 57 16 180/87 99 08/16/16 17:32 51 18 178/98 99 Room Air 08/16/16 15:42 46 18 181/97 99 Room Air 08/16/16 13:47 36.5 53 20 157/88 96 Room Air Physical Exam Constitutional: Vital signs reviewed. Eyes: Pupils are equal round reactive to light. Conjunctiva are noninjected. ENT: Pharynx is clear without erythema or exudate. Mucous membranes are moist. Neck supple without meningeal signs. Respiratory: Clear to auscultation bilaterally. Breath sounds are equal bilaterally. Cardiovascular: Regular rate and rhythm. No rubs or gallops. GI: Soft, nondistended. Periumbilical pain and tenderness and epigastric tenderness, no guarding. Bowel sounds are present. Musculoskeletal: No peripheral edema. No lower extremity tenderness. Integumentary: No cyanosis. Neurological: The patient is awake and alert. No focal deficits. Psychiatric: Normal affect. Medical Decision & Procedures ER Provider Diagnostic Interpretation: Radiology results as stated below per my review and the radiologist's interpretation: ABDOMEN AND PELVIS CTA WITH IV CONTRAST CT DOSE: 1029.89 mGycm HISTORY: Generalized abdominal pain. Evaluate for aneurysm. TECHNIQUE: Multiaxial CT images of the abdomen and pelvis were performed following the use of intravenous contrast to evaluate the aorta. Maximal intensity projection images were also obtained.. COMPARISON STUDY: Abdomen and pelvis CT 08/11/2016. FINDINGS: Lower chest: There are coronary artery calcifications. There is right basilar atelectasis/scarring. There are no significant pleural effusions. Liver: There is a stable 8 mm hypodensity within the right hepatic lobe, likely representing a cyst. There is persistent central intrahepatic biliary ductal dilatation. There is persistent dilatation of the common bile duct which measures 12 mm. Gallbladder: The gallbladder remains distended similar to the prior study Spleen: Normal in size and attenuation. Pancreas: No pancreatic masses are visualized. The pancreatic duct is at the upper limits of normal in diameter. Adrenal glands: Unremarkable. Kidneys: There are multiple bilateral renal cysts. The largest on the left measures 22 mm. The largest on the right measures 23 mm Bowel: There are no transition zones to indicate bowel obstruction. There is colonic diverticulosis. There are no acute peridiverticular inflammatory changes. There is no evidence of acute appendicitis. 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 Peritoneum: There is no intraperitoneal free air or abdominal ascites. Vasculature: There is a 24 x 19 x 18 mm saccular aneurysm arising from the left side of the infrarenal abdominal aorta.. An IVC filter is visualized. The celiac artery, mesenteric artery, and renal arteries are widely patent. There is mild to moderate calcified plaque within the abdominal aorta. The bilateral common iliac and external iliac arteries are also widely patent. There is also stable 2.0 x 0.7 cm penetrating ulcer versus an aneurysm within the right posterior aspect of the abdominal aorta best seen on image 173 Adenopathy: None. Pelvic viscera: The pelvis is partially obscured due to artifact from bilateral hip replacements. Skeletal structures: There are postsurgical changes present within the lumbar spine. Intraspinal catheter is visualized.. Severe degenerative changes within the lumbar spine and levoscoliosis are again noted. IMPRESSION: 1. Stable intra and extra hepatic biliary ductal dilatation 2. Mildly distended gallbladder unchanged from the preceding study 3. 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 A 24 x 19 x 18 mm saccular aneurysm arising from the left side of the infrarenal abdominal aorta. There is also a 2.0 x 0.7 cm penetrating ulcer versus aneurysm within the right posterior aspect of the abdominal aorta. These remain similar in size to the prior study. There is no CT evidence of rupture. 5. No evidence of bowel obstruction. No evidence of free air 6. Diverticulosis. No evidence of acute diverticulitis 7. No evidence of acute appendicitis 8. No current evidence of pathologic adenopathy Electronically signed by: Stefan Solano M.D. 08/16/2016 5:07 PM Dictated Date/Time: 08/16/2016 4:57 PM Laboratory Results 08/16/16 14:35 Red Blood Count 5.08, Mean Corpuscular Volume 78.7, Mean Corpuscular Hemoglobin 27.0, Mean Corpuscular Hemoglobin Concent 34.3, Mean Platelet Volume 10.4, Neutrophils (%) (Auto) 65.1, Lymphocytes (%) (Auto) 23.9, Monocytes (%) (Auto) 9.4, Eosinophils (%) (Auto) 1.2, Basophils (%) (Auto) 0.4, Neutrophils # (Auto) 3.32, Lymphocytes # (Auto) 1.22, Monocytes # (Auto) 0.48, Eosinophils # (Auto) 0.06, Basophils # (Auto) 0.02 08/16/16 14:35 Test 08/16/16 14:35 08/16/16 15:55 White Blood Count 5.10 K/uL (4.8-10.8) Red Blood Count 5.08 M/uL (4.7-6.1) Hemoglobin 13.7 g/dL (14.0-18.0) Hematocrit 40.0 % (42-52) Mean Corpuscular Volume 78.7 fL (80-100) Mean Corpuscular Hemoglobin 27.0 pg (25-34) Mean Corpuscular Hemoglobin Concent 34.3 g/dl (32-36) Platelet Count 177 K/uL (130-400) Mean Platelet Volume 10.4 fL (7.4-10.4) Neutrophils (%) (Auto) 65.1 % Lymphocytes (%) (Auto) 23.9 % Monocytes (%) (Auto) 9.4 % Eosinophils (%) (Auto) 1.2 % Basophils (%) (Auto) 0.4 % Neutrophils # (Auto) 3.32 K/uL (1.4-6.5) Lymphocytes # (Auto) 1.22 K/uL (1.2-3.4) Monocytes # (Auto) 0.48 K/uL (0.11-0.59) Eosinophils # (Auto) 0.06 K/uL (0-0.5) Basophils # (Auto) 0.02 K/uL (0-0.2) RDW Standard Deviation 41.0 fL (36.4-46.3) RDW Coefficient of Variation 14.4 % (11.5-14.5) Immature Granulocyte % (Auto) 0.0 % Immature Granulocyte # (Auto) 0.00 K/uL (0.00-0.02) Nucleated RBC Absolute Count (auto) 0.00 K/uL (0-0) Nucleated Red Blood Cells % 0.0 % Prothrombin Time > 100.0 SECONDS Prothromb Time International Ratio > 8.0 (0.9-1.1) Activated Partial Thromboplast Time 46.6 SECONDS (21.0-31.0) Partial Thromboplastin Ratio 1.8 Anion Gap 7.0 mmol/L (3-11) Est Creatinine Clear Calc Drug Dose 79.3 ml/min Estimated GFR () 88.3 Estimated GFR (Non- 76.2 BUN/Creatinine Ratio 15.8 (10-20) Calcium Level 9.4 mg/dl (8.5-10.1) Total Bilirubin 0.6 mg/dl (0.2-1) Direct Bilirubin 0.2 mg/dl (0-0.2) Aspartate Amino Transf (AST/SGOT) 21 U/L (15-37) Alanine Aminotransferase (ALT/SGPT) 24 U/L (12-78) Alkaline Phosphatase 78 U/L (45-117) Total Protein 7.4 gm/dl (6.4-8.2) Albumin 3.5 gm/dl (3.4-5.0) Lipase 630 U/L (73-393) Urine Color YELLOW Urine Appearance CLEAR (CLEAR) Urine pH 7.5 (4.5-7.5) Urine Specific [place] 1.014 (1.000-1.030) Urine Protein NEG (NEG) Urine Glucose (UA) NEG (NEG) Urine Ketones TRACE (NEG) Urine Occult Blood 3+ (NEG) Urine Nitrite NEG (NEG) Urine Bilirubin NEG (NEG) Urine Urobilinogen NEG (NEG) Urine Leukocyte Esterase NEG (NEG) Urine WBC (Auto) 1-5 /hpf (0-5) Urine RBC (Auto) 10-30 /hpf (0-4) Urine Hyaline Casts (Auto) 1-5 /lpf (0-5) Urine Epithelial Cells (Auto) 0-5 /lpf (0-5) Urine Bacteria (Auto) NEG (NEG) Laboratory results as reviewed by me. Medications Administered Medications (Trade) Dose Ordered Sig/Andrew Route Start Time Stop Time Status Last Admin Dose Admin Morphine Sulfate (MoRPHine SULFATE INJ) 4 mg ONE STAT IV 08/16/16 14:13 08/16/16 14:14 DC 08/16/16 14:37 4 MG Ondansetron HCl (Zofran Inj) 4 mg NOW STAT IV 08/16/16 14:13 08/16/16 14:14 DC 08/16/16 14:37 4 MG Phytonadione 10 mg/Sodium Chloride 51 ml @ 102 mls/hr ONE ONCE IV 08/16/16 15:30 08/16/16 15:59 DC 08/16/16 15:39 102 MLS/HR Morphine Sulfate (MoRPHine SULFATE INJ) 2 mg NOW STAT IV 08/16/16 17:39 08/16/16 17:40 DC 08/16/16 17:57 2 MG ED Course 1400: The patient was evaluated in room C8. A complete history and physical exam was performed. 1413: Zofran 4 mg IV, Morphine sulfate 4 mg IV 1507: I updated the patient on his CT results from the other day. 1530: Phytonadione 10 mg/Sodium Chloride 51 ml @ 102 mls/hr IV 1714: I spoke with Dr. Solano of radiology. We discussed the patient's CT results and he felt that they were unchanged from previous. 1719: I discussed the test results with the patient and his . He is not sure if he wants to stay or go home. I am going to talk to GI. 1729: I spoke with Dr. Weinstein of GI. We discussed the patient's case. He felt that there was no reason for admission, and the patient should follow-up with Dr. Murguia. He recommended a bland diet. 1737: I reassessed the patient at this time. He is feeling better and resting comfortably. I discussed the results and treatment plan with the patient. I answered all pertaining questions that he had. He expressed understanding and verbalized agreement. The patient will be discharged home, but he has requested a shot of pain medication before he leaves. 1739: Morphine sulfate 2 mg IV Medical Decision This is a 71-year-old male who presents with abdominal pain. Differential diagnosis includes pancreatitis, peptic ulcer disease, irritable bowel syndrome , cholelithiasis, choledocholithiasis, aneurysm rupture. I did perform a limited focused review of portions of the patient's old chart on the electronic medical record. The patient was here on the for abdominal pain. He had a CT which showed a secular aneurysm measuring 24 mm by 19 mm, no rupture. He had a mildly distended gallbladder, which was unchanged from prior study. Medication Reconciliation: I attest that I have personally reviewed the patient' s current medication list. Blood Pressure Screening: Patient was found to have an elevated blood pressure and was referred to their primary doctor for recheck and further treatment. I did evaluate the patient as noted above. The patient is presenting with abdominal pain for a week. He has been seen by gastroenterology and had a CT scan here last week. He presents with continued pain despite being on Bentyl and omeprazole which was prescribed by his GI physician. IV access was established. The patient was placed on a continuous playground monitor. I did order and personally review the patient's urinalysis as described above. I did order and review the patient's blood work as noted in the electronic medical record. His white blood cell count is not elevated. His lipase is slightly elevated but improved since his last visit. LFTs are unremarkable. His INR is greater than 8. I did treat him with IV vitamin K. He was advised to hold his dose of Coumadin tonight and to call his doctor tomorrow regarding further Coumadin dosing and recheck of his INR. I did order a CT angiogram of the abdomen and pelvis. I did review the images myself as well as the radiology report as described above. There is no change from his prior CT. No rupture of his aneurysm. I did treat patient with IV morphine and Zofran. He is feeling better at this time. He states he hasn't been eating over the past 3 days but has been doing this intentionally because he thought he had a gallbladder problem. He states he can drink and eat if he wanted to. I did offer hospitalization but he did not wish to stay. I did talk to the registered nurse obstetrics livestock nutrition territory manager who did notsee any indication for hospitalization anyway and felt he could follow up as an outpatient. The patient was happy with this plan. He does have an appointment with his registered nurse obstetrics this week. He was discharged in good condition and given return instructions as outlined below. He did request some additional morphine before discharge and was given 2 mg IV. Consults Time Called: 171 Consulting Physician: Dr. Solano Returned Call: [phone] Solano of radiology. We discussed the patient's CT results and he felt that they were unchanged from previous. Additional Consults: Time Called: 1726 Consulted Physician: Dr. Weinstein Returned Call: 1726 Additional Comments: I spoke with Dr. Weinstein of GI. We discussed the patient's case. He felt that there was no reason for admission, and the patient should follow-up with Dr. Murguia. He recommended a bland diet. Impression Primary Impression: Diffuse abdominal pain Additional Impressions: Abdominal aortic aneurysm Supratherapeutic INR Scribe Attestation The scribe's documentation has been prepared under my direct and personally reviewed by me in its entirety. I confirm that the note above accurately reflects all work, treatment, procedures, and medical decision making performed by me. Departure Information Dispostion Home / Self-Care Referrals Tres Sommers Jr,D.O. (PCP) Forms HOME CARE DOCUMENTATION FORM, IMPORTANT VISIT INFORMATION Patient Instructions ED Abdominal Pain Unkn Cause Male, ED Aneurysm Abdominal Aortic Stable, My [facility] Additional Instructions You have been examined and treated today on an emergency basis only. This is not a substitute for, or an effort to provide, complete comprehensive medical care. It is impossible to recognize and treat all injuries or illnesses in a single emergency department visit. It is therefore important that you follow up closely with your physician, vascular surgeon and registered nurse obstetrics. Call as soon as possible for an appointment. Ask your physician tomorrow about your Coumadin dosing. Hold your Coumadin tonight. The INR today was greater than 8. Return for worsening symptoms or if you develop fever, vomiting, severe headache, bleeding from your urine or stool, or any other concerning symptoms. Problem Qualifiers Additional Impressions: Abdominal aortic aneurysm Presence of rupture: without rupture Qualified Codes: I71.4 - Abdominal aortic aneurysm, without rupture
== END 2016-08-16 18:21 | disposition home or self-care (01) ==
LOC: C.EDB 13:37 → C.EDC 18:21
DX: R10.9 Unspecified abdominal pain (principal); I71.4 Abdominal aortic aneurysm, without rupture; R79.1 Abnormal coagulation profile; I10 Essential (primary) hypertension; M81.0 Age-related osteoporosis without current pathological fracture; F17.200 Nicotine dependence, unspecified, uncomplicated; Z86.718 Personal history of other venous thrombosis and embolism; Z87.01 Personal history of pneumonia (recurrent); Z85.46 Personal history of malignant neoplasm of prostate; Z94.81 Bone marrow transplant status; Z96.649 Presence of unspecified artificial hip joint; Z79.01 Long term (current) use of anticoagulants

== ENCOUNTER → 2016-11-11 | Outpatient (CLI) | payer OTHER ==
[~2016-11-11] MED LIST changes: +DICY10CA12 PO; -FERR18TA2; +FERR1TAB13 PO; -NALO1TAB2 PO; +ONDA4TAB10 SL; -OXYC-57 PO; +PRLSR20 PO
== END | disposition home or self-care (01) ==
LOC: C.PATHSPEC 17:42
PROVIDERS: ATTEND Urology
DX: C67.9 Malignant neoplasm of bladder, unspecified (principal)

== ENCOUNTER → 2017-01-31 | Outpatient (CLI) | payer OTHER | END | disposition home or self-care (01) | LOC: C.PATHSPEC 17:21 | PROVIDERS: ATTEND Urology | DX: C67.9 Malignant neoplasm of bladder, unspecified (principal) ==

== ENCOUNTER → 2017-05-05 | Outpatient (CLI) | payer OTHER | END | disposition home or self-care (01) | LOC: C.PATHSPEC 10:21 | PROVIDERS: ATTEND Urology | DX: C67.9 Malignant neoplasm of bladder, unspecified (principal) ==

== ENCOUNTER → 2017-09-08 | Outpatient (CLI) | payer OTHER ==
[~2017-09-08] MED LIST changes: -DICY10CA12 PO; -TIZA4CAP PO; -WARF-246 PO; -WARF2.5T8 PO; +XRL10 PO; +medical marijuana
== END | disposition home or self-care (01) ==
LOC: C.PATHSPEC 17:03
PROVIDERS: ATTEND Urology
DX: C61 Malignant neoplasm of prostate (principal)

== ENCOUNTER 2021-10-08 16:00 | Inpatient (IN) ==
[2021-10-08 16:54] LABS: Basophils # (auto) 0.03 K/uL (0-0.2); Basophils % (auto) 0.3 %; Hematocrit (blood only) 34.1 % (40.1-51.0); Hemoglobin 11.3 g/dl (14.0-18.0); Immature Granulocytes # (auto) 0.04 K/uL (0.00-0.02); Immature Granulocytes % (auto) 0.4 %; Lymphocytes # (auto) 0.88 K/uL (1.2-3.4); Lymphocytes % (auto) 8.5 %; Mean Corpuscular Hemoglobin 27.7 pg (25.0-34.0); Mean Corpuscular Hgb Conc 33.1 g/dL (32.0-36.0); Mean Corpuscular Volume 83.6 fL (80.0-100.0); Mean Platelet Volume 9.9 fL (9.4-12.4); Monocytes # (auto) 0.93 K/uL (0.24-0.82); Monocytes % (auto) 8.9 %; Neutrophils # (auto) 8.42 K/uL (1.4-6.5); Neutrophils % (auto) 80.9 %; Platelet Count 182 K/uL (130-400); RDW Coefficient of Variation 14.9 % (11.5-14.5); RDW Standard Deviation 45.1 fL (36.4-46.3); Red Blood Count 4.08 M/uL (4.63-6.08)
--- NOTE | 2021-10-08 17:18 | XRay Report ---
XR chest 1V portable CLINICAL HISTORY: weakness TECHNIQUE: Single frontal radiograph of the chest was obtained. Comparison: Comparison is made to chest radiograph 05/14/2018 FINDINGS: Spinal stimulator is unchanged from prior exam. The aorta is tortuous. The remainder of the cardiomed iastinal silhouette is unremarkable. The lungs are clear. No evidence of pleural effusion or pneumoth orax. IMPRESSION: No acute chest disease. ACT 112: Negative or not required by law. Electronically signed by: Andrzej Méndez M.D. 10/08/2021 5:17 PM
[2021-10-08 17:25] LABS: Troponin I High Sensitivity 12.6 pg/ml (0-20)
[2021-10-08 17:28] LABS: Albumin Globulin Ratio 1.3 (0.9-2); Albumin Level 3.6 gm/dl (3.4-5.0); BUN Creatinine Ratio 23.8 (10-20); Bilirubin,Total 1.1 mg/dl (0.2-1.0); Calcium 8.7 mg/dl (8.5-10.1); Creatinine Clr Calc Pharmacy 56.4 ml/min; Est GFR (African American) 82.2 ml/min; Est GFR (Non-African American) 70.9 ml/min; Globulin 2.7 gm/dl (2.5-4.0); Potassium 3.8 mmol/L (3.5-5.1); Total Protein 6.3 gm/dl (6.0-8.3)
--- NOTE | 2021-10-08 17:41 | CT Scan Report ---
CT head/brain wo con CLINICAL HISTORY: fall, anticoagulated Technique: Contiguous axial CT images of the head were acquired from the base of the skull to the dianne meek without intravenous contrast administration. Images were viewed in brain, subdural and [facility] . Automated dose lowering techniques and/or adjustment according to patient size were utilized for this exam. Comparison: Comparison is made to CT head 05/14/2018 Findings: The ventricles, basal cisterns, and cerebral sulci are normal. There is no acute intracranial hemorrh age or evidence of acute territorial infarction. Neither mass effect, shift of the midline structures , nor abnormal extra-axial fluid collections are shown. Imaged portions of the paranasal sinuses and mastoid air cells are clear. The orbits appear normal. There are no acute fractures of the calvaria. Soft tissue swelling is seen in the left frontal regio n. Impression: No acute intracranial hemorrhage or skull fractures. Scalp swelling is seen in the left frontal regio n. ACT 112: Negative or not required by law. Electronically signed by: Andrzej Méndez M.D. 10/08/2021 5:39 PM
--- NOTE | 2021-10-08 17:52 | CT Scan Report ---
CT SCAN OF THE CERVICAL SPINE CLINICAL HISTORY: Fall. COMPARISON STUDY: CT of the cervical spine dated 12/26/2017. TECHNIQUE: CT scan of the cervical spine is performed from the skull base to the upper thoracic spine . Images are reviewed in the axial, sagittal, and coronal planes. IV contrast was not administered fo r this examination. A dose lowering technique was utilized adhering to the principles of ALARA. CT DOSE: 1027.03 mGy.cm FINDINGS: Skeletal structures: The skeletal structures are osteopenic. There is no evidence of fracture or subl uxation involving the cervical spine. Vertebral body height and alignment are maintained. 5 mm of an terolisthesis is noted at C7-T1. There is straightening of cervical lordosis. Anterior osteophytes ar e seen throughout. There is postoperative change from anterior spinal fusion at C3-C4. The odontoid p rocess and lateral masses are intact. Cystic change in noted at the base of the odontoid process. The atlantoaxial articulation is preserved noting productive degenerative change. The spinous processes appear intact. There is moderate to advanced multilevel cervical spondylosis. Uncovertebral and facet arthropathy contribute to neural foraminal narrowing at most levels. Intervertebral discs: There has been discectomy at C3-C4. Advanced disc space narrowing is seen at C4 -C5, C5-C6, and C6-C7 with associated endplate sclerosis. Moderate disc space narrowing is noted at C 2-C3 and C7-T1. Central canal: Widely patent. Soft tissues: The prevertebral and paraspinous soft tissues are within normal limits. There is athero sclerotic calcification of the carotid bulbs. Calvarium: The visualized calvarium at the skull base appears intact. Brain parenchyma: Partially visualized brain parenchyma at the skull base is within normal limits. Sinuses and mastoids: The visualized paranasal sinuses are clear. The mastoid air cells are well pneu matized. Lung apices: Clear as visualized. IMPRESSION: 1. There is no evidence of fracture or subluxation involving the cervical spine. 2. Osteopenia with postoperative and spondylotic change as above. ACT 112: Negative or not required by law. Electronically signed by: Brad Gonzalez M.D. 10/08/2021 5:51 PM
--- NOTE | 2021-10-08 17:52 | Emergency Department Note ---
Impression & Plan Confusion, CHI (closed head injury), Traumatic ecchymosis of face ED Provider Note INFORMANT: Patient and ED PROVIDER(S): Junior Ji MD CHIEF COMPLAINT: Fall PLAN: Disposition: Admitted Condition: Good Outpatient prescription management: none Referral: None MEDICAL DECISION MAKING: Patient presented because of a fall and some confusion. A work-up was initiated. Patient had a CT scan of the head performed. This did not reveal any significant traumatic pathology. Chest x-ray negative. He had an unremarkable CBC except for mild anemia. Chemistry panel, LFTs, troponin and TSH were negative. There was trace blood in the urine. Patient did request his usual pain medication but was only given 5 mg of oxycodone. His ECG showed a sinus bradycardia. The patient, his and I discussed his situation. Given his confusion and 's concerns about him being at home I did consult with the hospitalist service. Patient was evaluated in the ER admitted for further management. Triage Nursing notes reviewed and agree them. Vital Signs: reviewed and remarkable for no significant abnormalities Differential diagnosis: Concussion, ICH, SDH, infection, dehydration, metabolic abnormality, hypo/hyperglycemia, electrolyte disturbance, anemia, hypoxia, cardiac sources, intracerebral event, toxicologic, neurologic, as well as other pathologies. Diagnostics interpreted by me: ECG: Twelve-lead ECG was sinus bradycardia 52 bpm. Anterior Q waves present. No ST elevation or depression. No PVCs. Cardiac Monitoring: Cardiac monitoring ordered by me: The patient was placed on continuous cardiac monitoring and observed. It revealed a sinus bradycardic rhythm at 53 bpm. Imaging studies: CT scans as noted below. HPI: The patient is a 76year old male male who presents to the Emergency Room with complaints of a fall. This started 2 days ago and is and described as accidental. Patient was on Xarelto. He fell and struck his face. He had significant bruising. CT imaging was performed at [facility] and was reported as negative. Last night and then again this morning the patient heard some ringing sound that he described like gunshots. They were transient. The did note that he was having some confusion at times mainly at night. The patient also notes the following associated symptoms, abrasion to the left forearm and some edema of the left hand since wrapping the left forearm with an Armin wrap. The patient has stopped his Xarelto and has not taken any medication for relieving factors. Current pain is rated as 2/10. Pt denies LOC, headache, fevers, chills, diaphoresis, visual changes, neck pain, chest pain, breathing difficulties, nausea, vomiting, abdominal pain, back pain, melena, hematochezia, urinary symptoms, numbness, weakness, lymphadenopathy, rash, or other complaints. ROS: See above HPI for pertinent positives & negatives. A total of 10 systems reviewed and were otherwise negative. PAST MEDICAL HISTORY:See Below , anticoagulation, PE PAST SURGICAL HISTORY:See Below, FAMILY HISTORY:See Below SOCIAL HISTORY:See Below, HOME MEDICATIONS:See Below ALLERGIES:See Below VITALS:See Below PHYSICAL EXAMINATION: GENERAL: Awake, alert, nontoxic-appearing, in no distress HENT: Normocephalic, forehead hematoma noted. Significant facial ecchymosis noted. Oropharynx unremarkable. EYES: Normal conjunctiva. Sclera non-icteric. PERRLA. Minor subconjunctival hemorrhages noted bilaterally. NECK: Inspection normal. Non-tender. Supple. No nuchal rigidity. FROM. No masses. RESPIRATORY: Clear to auscultation. No wheezes. No rales. Normal respiratory effort. CARDIAC: Bradycardic rate. Normal rhythm. No murmurs. No rubs. Extremities warm and well perfused. Pulses equal. No JVD. GI: Soft, non-distended. No tenderness to palpation. No rebound or guarding. No masses. RECTAL: Deferred. MUSCULOSKELETAL: Atraumatic. Chest examination reveals no tenderness. The back is symmetrical on inspection without obvious abnormality. There is no CVA tenderness to palpation. No joint edema. LOWER EXTREMITIES: Calves are equal size bilaterally and non-tender. No edema. No discoloration. NEURO: Normal sensorium. No sensory or motor deficits noted. SKIN: No rash or jaundice noted. Junior Ji MD Past Med/Surg History Medical History Abdominal aortic aneurysm Chronic back pain Deep vein thrombosis Glaucoma Omar filter in place H/O prostate cancer History of bladder cancer History of ITP Malignant neoplasm of urinary bladder On anticoagulant therapy Osteoarthritis Overactive bladder Prostate cancer Pulmonary embolism Sleep apnea Transient ischemic attack (TIA) Surgical History H/O shoulder surgery History of bladder surgery History of laminectomy History of prostatectomy History of total hip arthroplasty Hx of cervical spine surgery Family History Mother Alzheimer disease Father Aortic aneurysm Other Family history non-contributory Social History Smoking Status: Current every day smoker Tobacco Type: Cigars Cigarettes Per Day: 1 PACK OF MINI-CIGARS PER MONTH; Second Hand Exposure: No; Hx Alcohol Use: No Hx Substance Use: No Preferred Language: Urdu Communication Ability: Effective Video Manager Required: No Beliefs That Will Affect Care: None marital status: Current Living Situation: Spouse Other Information That Helps Us Care for You: No Feels Safe at Home: Yes Safety Concerns: Feels Safe At This Time Assistive Devices: Walker Assistive Devices Comment: shower chair Allergies Allergies Allergy/AdvReac Type Severity Reaction Status Date / Time adalimumab Allergy Severe GI SYMPTOMS Verified 10/08/21 16:58 [email or web address] Allergy Intermediate NEUROLOGICAL Verified 10/08/21 16:58 SYMPTOMS/STOMACH PAINS methotrexate Allergy Unknown Blood Verified 10/08/21 16:58 platelets drop. naproxen Allergy Unknown dilusional Verified 10/08/21 16:58 Home Meds Home Medications Medication Instructions Recorded Confirmed abiraterone 250 mg tablet (Zytiga) 1,000 mg PO QAM 01/26/18 10/08/21 calcium carbonate 500 mg-vitamin 1 tab PO QAM 01/26/18 10/08/21 D3 10 mcg (400 unit) tablet (Calcium 500 With D) docusate sodium 50 mg capsule 50 mg PO QAM 01/26/18 10/08/21 leuprolide acetate (6 month) 45 mg 1 dose IM UD 01/26/18 10/08/21 intramuscular syringe kit (Lupron Depot) pregabalin 300 mg capsule (Lyrica) 300 mg PO BID 01/26/18 10/08/21 timolol maleate (PF) 0.5 % eye 1 drp OPB BID 01/26/18 10/08/21 drops in a dropperette travoprost 0.004 % eye drops 1 drp OPB HS 01/26/18 10/08/21 (Travatan Z) oxycodone 10 mg tablet 10 mg PO .COMPLEX 09/24/21 10/08/21 prednisone 5 mg tablet 5 mg PO QAM 09/24/21 10/08/21 baclofen 10 mg tablet 20 mg PO QID 10/08/21 10/08/21 celecoxib 100 mg capsule 100 mg PO BID 10/08/21 10/08/21 gabapentin 100 mg capsule 100 mg PO HS 10/08/21 10/08/21 Previous Rx's Medication Instructions Recorded rivaroxaban 20 mg tablet (Xarelto) 20 mg PO QAM #0 tabs 02/17/18 Results & Data (ED) Vital Signs Vital Signs - 24 hr 10/08/21 16:20 Temperature 37 C Temperature Source Oral Pulse Rate 53 L Respiratory Rate 22 Respiratory Effort / Characteristics Non-Labored Spontaneous Respiratory Depth Normal Respiratory Pattern Regular Blood Pressure 153/89 H Blood Pressure Mean 110 Pulse Oximetry 97 Oxygen Delivery Method Room Air Sepsis Recent Fever Within 48 Hours No Sepsis New/Unexplained Change in Mental Status N/A Sepsis Action Taken by Nursing No Action Required Laboratory Data Result diagrams: 10/09/21 04:29 10/09/21 14:48 Lab Results 10/08/21 10/08/21 10/08/21 Range/Units 16:27 16:27 16:27 WBC 10.40 (4.8-10.8) K/ul RBC 4.08 L (4.63-6.08) M/uL Hgb 11.3 L (14.0-18.0) g/dl Hct 34.1 L (40.1-51.0) % MCV 83.6 (80.0-100.0) fL MCH 27.7 (25.0-34.0) pg MCHC 33.1 (32.0-36.0) g/dL RDW Std Deviation 45.1 (36.4-46.3) fL RDW Coeff of Luis Angel 14.9 H (11.5-14.5) % Plt Count 182 (130-400) K/uL MPV 9.9 (9.4-12.4) fL Immature Gran % (Auto) 0.4 % Neut % (Auto) 80.9 % Lymph % (Auto) 8.5 % Rutherford % (Auto) 8.9 % Eos % (Auto) 1.0 % Baso % (Auto) 0.3 % Neut # (Auto) 8.42 H (1.4-6.5) K/uL Lymph # (Auto) 0.88 L (1.2-3.4) K/uL Rutherford # (Auto) 0.93 H (0.24-0.82) K/uL Eos # (Auto) 0.10 (0-0.50) K/uL Baso # (Auto) 0.03 (0-0.2) K/uL Immature Gran # (Auto) 0.04 H (0.00-0.02) K/uL Sodium 140 (136-145) mmol/L Potassium 3.8 (3.5-5.1) mmol/L Chloride 107 (98-107) mmol/L Carbon Dioxide 26 (21-32) mmol/L Anion Gap 7 (3-11) BUN 24 H (6-23) mg/dl Creatinine 1.01 (0.6-1.4) mg/dl Est Cr Clr Drug Dosing 56.4 ml/min Est GFR ( Amer) 82.2 ml/min Est GFR (Non-Af Amer) 70.9 ml/min BUN/Creatinine Ratio 23.8 H (10-20) Glucose 95 (70-99(Fasting)) mg/dl Calcium 8.7 (8.5-10.1) mg/dl Magnesium 2.0 (1.7-2.4) mg/dl Total Bilirubin 1.1 H (0.2-1.0) mg/dl AST 15 (13-39) U/L ALT 13 (7-52) U/L Alkaline Phosphatase 54 (34-104) U/L Troponin I High Sens 12.6 (0-20) pg/ml Total Protein 6.3 (6.0-8.3) gm/dl Albumin 3.6 (3.4-5.0) gm/dl Globulin 2.7 (2.5-4.0) gm/dl Albumin/Globulin Ratio 1.3 (0.9-2) TSH 0.563 (0.300-4.500) uIu/ml Urine Color Urine Appearance (Clear) Urine pH (4.5-7.5) Ur Specific Sontag (1.000-1.030) Urine Protein (Negative) Urine Glucose (UA) (Negative) Urine Ketones (Negative) Urine Blood (Negative) Urine Nitrite (Negative) Urine Bilirubin (Negative) Urine Urobilinogen (Negative) Ur Leukocyte Esterase (Negative) Urine WBC (Auto) (0-5) /hpf Urine RBC (Auto) (0-4) /hpf U Hyaline Cast (Auto) (0-5) /lpf U Epithel Cells (Auto) (0-5) /lpf Urine Bacteria (Auto) (Negative) SARS-CoV-2, RNA, NAAT (NEGATIVE) 10/08/21 10/08/21 Range/Units 19:14 Unknown WBC (4.8-10.8) K/ul RBC (4.63-6.08) M/uL Hgb (14.0-18.0) g/dl Hct (40.1-51.0) % MCV (80.0-100.0) fL MCH (25.0-34.0) pg MCHC (32.0-36.0) g/dL RDW Std Deviation (36.4-46.3) fL RDW Coeff of Luis Angel (11.5-14.5) % Plt Count (130-400) K/uL MPV (9.4-12.4) fL Immature Gran % (Auto) % Neut % (Auto) % Lymph % (Auto) % Rutherford % (Auto) % Eos % (Auto) % Baso % (Auto) % Neut # (Auto) (1.4-6.5) K/uL Lymph # (Auto) (1.2-3.4) K/uL Rutherford # (Auto) (0.24-0.82) K/uL Eos # (Auto) (0-0.50) K/uL Baso # (Auto) (0-0.2) K/uL Immature Gran # (Auto) (0.00-0.02) K/uL Sodium (136-145) mmol/L Potassium (3.5-5.1) mmol/L Chloride (98-107) mmol/L Carbon Dioxide (21-32) mmol/L Anion Gap (3-11) BUN (6-23) mg/dl Creatinine (0.6-1.4) mg/dl Est Cr Clr Drug Dosing ml/min Est GFR ( Amer) ml/min Est GFR (Non-Af Amer) ml/min BUN/Creatinine Ratio (10-20) Glucose (70-99(Fasting)) mg/dl Calcium (8.5-10.1) mg/dl Magnesium (1.7-2.4) mg/dl Total Bilirubin (0.2-1.0) mg/dl AST (13-39) U/L ALT (7-52) U/L Alkaline Phosphatase (34-104) U/L Troponin I High Sens (0-20) pg/ml Total Protein (6.0-8.3) gm/dl Albumin (3.4-5.0) gm/dl Globulin (2.5-4.0) gm/dl Albumin/Globulin Ratio (0.9-2) TSH (0.300-4.500) uIu/ml Urine Color Yellow Urine Appearance Clear (Clear) Urine pH 8.0 H (4.5-7.5) Ur Specific Sontag 1.007 (1.000-1.030) Urine Protein 1+ H (Negative) Urine Glucose (UA) Negative (Negative) Urine Ketones Trace H (Negative) Urine Blood 2+ H (Negative) Urine Nitrite Negative (Negative) Urine Bilirubin Negative (Negative) Urine Urobilinogen Negative (Negative) Ur Leukocyte Esterase Trace H (Negative) Urine WBC (Auto) 1-5 (0-5) /hpf Urine RBC (Auto) 10-30 H (0-4) /hpf U Hyaline Cast (Auto) 0 (0-5) /lpf U Epithel Cells (Auto) 0-5 (0-5) /lpf Urine Bacteria (Auto) Negative (Negative) SARS-CoV-2, RNA, NAAT NEGATIVE (NEGATIVE) Administered Medications Abiraterone Acetate (Abiraterone Acetate) 4 each PO DAILYBB [facility] Stop: 11/08/21 18:29 Last Admin: 10/09/21 17:11 Dose: 4 each Documented By: MTR Co-signed By: [id number] Acetaminophen (Acetaminophen 325 Mg Tab) 650 mg PO Q4H PRN PRN Reason: Pain or Fever Stop: 11/08/21 01:46 Last Admin: 10/09/21 19:55 Dose: 650 mg Documented By: Admin: 10/09/21 03:45 Dose: 650 mg Documented By: GIULIANA Baclofen (Baclofen 20 Mg Tab) 20 mg PO QID [facility] Stop: 11/08/21 08:59 Last Admin: 10/09/21 19:56 Dose: 20 mg Documented By: Admin: 10/09/21 17:11 Dose: 20 mg Documented By: Admin: 10/09/21 12:23 Dose: 20 mg Documented By: Admin: 10/09/21 08:00 Dose: 20 mg Documented By: MTR Docusate Sodium (Docusate Sodium 100 Mg Cap) 100 mg PO QAM [facility] Stop: 11/08/21 08:59 Last Admin: 10/09/21 08:00 Dose: 100 mg Documented By: MTR Gabapentin (Gabapentin 100 Mg Cap) 100 mg PO HS [facility] Stop: 11/08/21 20:59 Last Admin: 10/09/21 19:56 Dose: 100 mg Documented By: TP Ceftriaxone Sodium 1,000 mg/ (Dextrose) 60 mls @ 100 mls/hr IV Q24H [facility]; Protocol Stop: 10/16/21 06:59 Last Infusion: 10/09/21 08:29 Dose: 0 mls/hr Documented By: Admin: 10/09/21 07:53 Dose: 100 mls/hr Documented By: GLENNY [facility]inopril ([facility]op[facility] 10 Mg Tab) [facility] [place] [place]: 11/08/21 08:59 Last Admin: 10/09/21 07:55 Dose: 10 mg Documented By: GLENNY Metoprolol Succinate (Metoprolol Succ 25mg Ext Rel Tab) 25 [facility] [place]: 11/08/21 08:59 Last Admin: 10/09/21 07:55 Dose: 25 mg Documented By: GLENNY Miscellaneous (Timolol Maleate (Pf) 0.5 % - Order Awaiting Action) 1 each N/A QS [facility] Stop: 11/08/21 07:59 Last Admin: 10/10/21 02:39 Dose: Not Given Documented By: Admin: 10/09/21 17:00 Dose: Not Given Documented By: Admin: 10/09/21 08:02 Dose: Not Given Documented By: MTR Multivitamins/Minerals (Calcium 600mg + Vit D 400 Iu Tab) 1 tab PO QAM [facility] Stop: 11/08/21 08:59 Last Admin: 10/09/21 08:00 Dose: 1 tab Documented By: GLENNY Oxycodone HCl (Oxycodone Hcl Ir 5 Mg Tab (Immediate Release)) 20 mg PO BID [facility] Stop: 10/23/21 08:59 Last Admin: 10/09/21 19:57 Dose: 20 mg Documented By: Admin: 10/09/21 08:46 Dose: 20 mg Documented By: MTR Oxycodone HCl (Oxycodone Hcl Ir 5 Mg Tab (Immediate Release)) 10 mg PO DAILY@1200 [facility] Stop: 10/23/21 11:59 Last Admin: 10/09/21 12:22 Dose: 10 mg Documented By: MTR Pantoprazole Sodium (Pantoprazole 40 Mg Tab) 40 mg PO DAILY [facility] Stop: 11/08/21 08:59 Last Admin: 10/09/21 08:00 Dose: 40 mg Documented By: MTR Potassium Chloride (Potassium Chloride Crtab 20 Meq Tabcr) 40 meq PO TID [facility] Stop: 11/08/21 13:59 Last Admin: 10/09/21 19:56 Dose: 40 meq Documented By: Admin: 10/09/21 13:10 Dose: 40 meq Documented By: GLENNY Prednisone (Prednisone 5 Mg Tab) 5 mg PO QAM [facility] Stop: 11/08/21 08:59 Last Admin: 10/09/21 08:00 Dose: 5 mg Documented By: MTR Rivaroxaban (Rivaroxaban 20 Mg Tab) 20 mg PO QAM [facility] Stop: 11/08/21 08:59 Last Admin: 10/09/21 08:00 Dose: 20 mg Documented By: MTR Travoprost (Travoprost Z 0.004% Oph Soln 2.5 Ml Btl) 1 drops OPB HS [facility] Stop: 11/08/21 20:59 Last Admin: 10/09/21 19:58 Dose: 1 drops Documented By: TP Discontinued Medications Hydralazine HCl (Hydralazine Hcl 20 Mg/Ml Vial) 5 mg IV NOW ONE Stop: 10/08/21 21:19 Last Admin: 10/08/21 21:32 Dose: 5 mg Documented By: BS Sodium Chloride (Nss 1000ml) 1,000 mls @ 80 mls/hr IV .[id number] [facility] Stop: 10/09/21 14:16 Last Infusion: 10/09/21 14:08 Dose: 0 mls/hr Documented By: Admin: 10/09/21 02:23 Dose: 80 mls/hr Documented By: GIULIANA Magnesium Sulfate/Dextrose (Magnesium Sulfate / D5w) 1 gm in 100 mls @ 50 mls/hr IV ONE ONE Stop: 10/09/21 07:38 Last Infusion: 10/09/21 07:45 Dose: 0 mls/hr Documented By: Admin: 10/09/21 06:51 Dose: 50 mls/hr Documented By: GIULIANA Miscellaneous (Zytiga - Order Awaiting Action) 1 each N/A QS [facility] Stop: 11/08/21 07:59 Last Admin: 10/09/21 08:02 Dose: Not Given Documented By: GLENNY Oxycodone HCl (Oxycodone Hcl Ir 5 Mg Tab (Immediate Release)) 5 mg PO NOW STA Stop: 10/08/21 21:19 Last Admin: 10/08/21 21:33 Dose: 5 mg Documented By: BRENDA Potassium Chloride (Potassium Chloride 20 Meq/15 Ml Udc) 40 meq PO NOW STA Stop: 10/09/21 05:40 Last Admin: 10/09/21 06:51 Dose: 40 meq Documented By: GIULIANA Imaging Data Radiologist's Impression: Chest X-Ray 10/08/21 16:42 XR chest 1V portable CLINICAL HISTORY: weakness TECHNIQUE: Single frontal radiograph of the chest was obtained. Comparison: Comparison is made to chest radiograph 05/14/2018 FINDINGS: Spinal stimulator is unchanged from prior exam. The aorta is tortuous. The remainder of the cardiomediastinal silhouette is unremarkable. The lungs are clear. No evidence of pleural effusion or pneumothorax. IMPRESSION: No acute chest disease. ACT 112: Negative or not required by law. Electronically signed by: Andrzej Méndez M.D. 10/08/2021 5:[address] 10/08/21 16:58 CT head/brain wo con CLINICAL HISTORY: fall, anticoagulated Technique: Contiguous axial CT images of the head were acquired from the base of the skull to the vertex without intravenous contrast administration. Images were viewed in brain, subdural and bone windows. Automated dose lowering techniques and/or adjustment according to patient size were utilized for this exam. Comparison: Comparison is made to CT head 05/14/2018 Findings: The ventricles, basal cisterns, and cerebral sulci are normal. There is no acute intracranial hemorrhage or evidence of acute territorial infarction. Neither mass effect, shift of the midline structures, nor abnormal extra-axial fluid collections are shown. Imaged portions of the paranasal sinuses and mastoid air cells are clear. The orbits appear normal. There are no acute fractures of the calvaria. Soft tissue swelling is seen in the left frontal region. Impression: No acute intracranial hemorrhage or skull fractures. Scalp swelling is seen in the left frontal region. ACT 112: Negative or not required by law. Electronically signed by: Andrzej Méndez M.D. 10/08/2021 5:39 PM Discharge Plan Visit Data Chief Complaint: Fall ED Provider: Junior Ji Discharge Problem: Confusion, CHI (closed head injury), Traumatic ecchymosis of face Patient Disposition: Admitted As Inpatient Discharge Instructions Interventions: ED Discharge Assessment Last Done: 10/09/21 01:25
[2021-10-08 19:45] LABS: Appearance Urine Clear (Clear); Bacteria Urine Automated Negative (Negative); Bilirubin Urine Negative (Negative); Blood Urine 2+ (Negative); Cast Urine Automated 0 /lpf (0-5); Color Urine Yellow; Epithelial Cell Urine Auto 0-5 /lpf (0-5); Glucose Urine UA Negative (Negative); Ketones Urine Trace (Negative); Leukocyte Esterase Urine Trace (Negative); Nitrite Urine Negative (Negative); Specific Gravity Urine 1.007 (1.000-1.030); Urobilinogen Urine Negative (Negative)
[2021-10-08 20:09] LABS: Protein Urine 1+ (Negative)
[2021-10-08] MEDS ORDERED: hydrALAZINE HCL 20 MG/ML VIAL IV ONE (21:18)
[2021-10-08] MEDS ORDERED: oxyCODONE HCL IR 5 MG TAB (IMMEDIATE RELEASE) PO STA (21:18)
[2021-10-09] MEDS ORDERED: POLYETHYLENE (MIRALAX) 17 GM PACK PO PRN (01:47)
[2021-10-09] MEDS ORDERED: SODIUM CHLORIDE 0.9% 1000ML 1,000 ML IV SCH (01:47)
[2021-10-09] MEDS ORDERED: LABETALOL HCL IV 5 MG/ML 20ML IV PRN (01:47)
[2021-10-09] MEDS ORDERED: ONDANSETRON INJ 2 MG/ML 2 ML VIAL IV PRN (01:47)
[2021-10-09] MEDS ORDERED: NITROGLYCERIN SL 0.4 MG/TAB TAB SL PRN (01:47)
[2021-10-09] MEDS: ACETAMINOPHEN 325 MG TAB PO PRN ×2 (03:45→19:55)
--- NOTE | 2021-10-09 03:53 | History and Physical Report ---
DATE OF ADMISSION: 10/09/2021. CHIEF COMPLAINT: Fall, questionable confusion. HISTORY OF PRESENT ILLNESS: A 76-year-old male with past medical history significant for abdominal aortic aneurysm, hypertension, prostate cancer, bladder cancer, thrombocytopenia, osteoporosis, lumbar spinal stenosis, lumbar spinal fusion surgery, post-laminectomy syndrome, spinal cord stimulator, cervical spinal fusion surgery, GERD, chronic left foot drop, ambulatory dysfunction, status post IVC filter, history of pulmonary embolism, and chronic right arm tremor, was brought in because of recent fall. The patient had seen the family doctor on the day of fall on 10/05/2021, it occurred in bathroom. No loss of consciousness. Struck his head and large forehead hematoma. CT of the head and CT of the cervical spine were done as an outpatient and were unremarkable. He seemed to be getting more confused at home and blood pressure was running high at home. seems to be not able to take care of him. So he was brought to the hospital here. Here imaging studies were also unremarkable. Urinalysis negative. SARS-CoV-2 test is negative. The patient has bruise and hematoma on his forehead, answers questions appropriately, but seems to be getting somewhat restless. Denies any headache. Denies any blurred visions, no runny nose, no cough, no fevers. Denies any chest pain or shortness of breath. He says he has some nausea and vomiting. He says appetite is okay. No belly pain. He says he is somewhat constipated. He says he has some difficulty urinating. Hemodynamics are stable in the ER.Not able to reach at this time. ALLERGIES: TO ADALIMUMAB, MIRABEGRON, METHOTREXATE, NAPROXEN. PAST MEDICAL HISTORY: As mentioned above. PAST SURGICAL HISTORY: Colonoscopy, EGD, EGD with endoscopic ultrasound, IVC filter placement, [employer] spinal cord stimulator placement, laparoscopic back surgery plus scar tissue, prostatectomy, removal of neck spine disk at C3-C4 level, tonsillectomy, adenoidectomy, ruptured rotator cuff repair on the right side, bilateral hip replacement and prosthesis. MEDICATIONS: As per EPIC he is on gabapentin 100 mg p.o. at bedtime, Zytiga 1000 mg p.o. daily, alendronate sodium 70 mg p.o. once a week, baclofen 20 mg p.o. q.i.d., celecoxib 100 mg p.o. b.i.d., dorzolamide-timolol ophthalmic one drop into both eyes b.i.d., famotidine 40 mg p.o. daily, lisinopril 10 mg p.o. daily, metoprolol succinate 25 mg p.o. daily, omeprazole 40 mg p.o. daily, prednisone 5 mg p.o. daily, Xarelto 20 mg p.o. daily, oxycodone 10 mg as directed, Colace 100 mg p.o. daily, travoprost one drop before bedtime in both eyes. FAMILY HISTORY: Significant for father had COPD; brother has heart disease, prostate cancer; mother had dementia eczema and hypertension. SOCIAL HISTORY: . Smokes cigars 1 pack per week. Alcohol occasional. No drug use. REVIEW OF SYSTEMS: As per HPI. Rest of the review of systems is negative. PHYSICAL EXAMINATION: GENERAL: The patient is alert, awake, oriented, not in acute distress. VITAL SIGNS: Temperature 37, pulse 80, respiratory rate 26, blood pressure 180/97, oxygen 96% on room air. HEENT: Pupils equal, round and reactive to light. Some bumps seen on the forehead and bruising on the face. Oral mucosa moist. NECK: No JVD, no neck masses. CARDIOVASCULAR: S1 and S2 heard. Regular rate and rhythm. No murmur, no gallop. RESPIRATORY SYSTEM: Normal AP diameter. No accessory muscle use. No wheezing or crackles. ABDOMEN: Soft, bowel sounds present, nontender, no distention. CENTRAL NERVOUS SYSTEM: Alert and awake. Speech is okay. No facial droop. Obeys simple commands. Moves extremities. EXTREMITIES: No edema, no erythema. LABORATORY DATA: WBC 10.4, hemoglobin 11.3, hematocrit 34.1, platelets 182. Sodium 140, potassium 3.8, chloride 107, bicarbonate 26, BUN 24, creatinine 1.01, serum glucose 95, calcium 8.7, magnesium 2, total bilirubin 1.1, AST 15, ALT 13, alkaline phosphatase 54. Troponin I high sensitivity 12.6. TSH 0.5. Urinalysis, trace ketones, +2 blood. SARS-CoV-2 rapid test negative. IMAGING DATA: CT of the head without contrast, no acute findings. Scalp swelling seen in the left frontal region. Cervical spine CT, no acute findings. Chest x-ray, no acute disease in the chest. EKG: Sinus bradycardia at a rate of 52, no acute ST changes seen. ASSESSMENT AND PLAN: This is a 76-year-old male who presents with fall. 1. Fall. Needs PT, OT. Will monitor in the hospital. Seems to be having difficult time to take care of him at home. Imaging studies are okay. He has bruise on the face. On Xarelto. 2. Questionable confusion. Monitor for delirium. We will check orthostatics. No signs of infection so far. We will monitor. 3. Hypertension, uncontrolled. Seems to be on lisinopril and metoprolol succinate at home on [facility] medication list, the patient says taking lisinopril. Tried to call the , not able to reach, need to confirm. We will place him on home medication lisinopril and metoprolol as per the [facility] and place him on IV labetalol p.r.n. Monitor the blood pressure. 4. History of prostate cancer, on Zytiga and Lupron shots. Follow up with Urology. 5. History of bladder cancer. Follow up with Urology. 6. History of tremor of right hand. Has appointment with Neurology as per PCP notes 7. History of thrombocytopenia. Currently, platelets are okay. 8. History of abdominal aortic aneurysm. Needs followup. 9. 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 Continue his home baclofen and oxycodone with close monitor.. 10. History of monoclonal paraproteinemia. Continue to follow up with Oncology. 11. History of pulmonary embolism, status post IVC filter, on Xarelto. 12. Polymyalgia rheumatica, on prednisone. 13. History of gastroesophageal reflux disease. omeprazole. 14. Deep venous thrombosis prophylaxis, Xarelto. addendum: On the floor spiked temp. ordered cultures. Empirically started on Rocephin. DISPOSITION: Admit to med tele, PT/OT, social service to help with discharge planning. We will keep him full code for now. Job ID: [id number] [facility]
[2021-10-09 04:45] LABS: Basophils # (auto) 0.02 K/uL (0-0.2); Basophils % (auto) 0.2 %; Eosinophils # (auto) 0.04 K/uL (0-0.50); Eosinophils % (auto) 0.3 %; Hematocrit (blood only) 35.4 % (40.1-51.0); Hemoglobin 11.9 g/dl (14.0-18.0); Immature Granulocytes # (auto) 0.03 K/uL (0.00-0.02); Immature Granulocytes % (auto) 0.2 %; Lymphocytes # (auto) 0.79 K/uL (1.2-3.4); Lymphocytes % (auto) 6.2 %; Mean Corpuscular Hgb Conc 33.6 g/dL (32.0-36.0); Mean Corpuscular Volume 80.3 fL (80.0-100.0); Mean Platelet Volume 9.9 fL (9.4-12.4); Monocytes # (auto) 1.26 K/uL (0.24-0.82); Monocytes % (auto) 9.9 %; Neutrophils # (auto) 10.61 K/uL (1.4-6.5); Neutrophils % (auto) 83.2 %; Platelet Count 147 K/uL (130-400); RDW Coefficient of Variation 14.6 % (11.5-14.5); RDW Standard Deviation 43.1 fL (36.4-46.3); Red Blood Count 4.41 M/uL (4.63-6.08); White Blood Count 12.75 K/ul (4.8-10.8)
[2021-10-09 05:26] LABS: BUN Creatinine Ratio 28.8 (10-20); Calcium 8.1 mg/dl (8.5-10.1); Creatinine Clr Calc Pharmacy 71.1 ml/min; Est GFR (African American) 99.2 ml/min; Est GFR (Non-African American) 85.6 ml/min; Magnesium 1.7 mg/dl (1.7-2.4); Potassium 2.6 mmol/L (3.5-5.1)
[2021-10-09] MEDS ORDERED: POTASSIUM CHLORIDE 20 MEQ/15 ML UDC PO STA (05:39)
[2021-10-09] MEDS ORDERED: MAGNESIUM SULFATE / D5W 1 GM/100 ML BAG IV ONE (05:39)
[2021-10-09] MEDS: cefTRIAXone SODIUM 1,000 MG in DEXTROSE 5% 50 ML IV SCH (07:53)
[2021-10-09] MEDS: lisinopril 10 MG TAB PO SCH (07:55)
[2021-10-09] MEDS: METOPROLOL SUCC 25MG EXT REL TAB PO SCH (07:55)
[2021-10-09] MEDS: RIVAROXABAN 20 MG TAB PO SCH (08:00)
[2021-10-09] MEDS: PANTOprazole 40 MG TAB PO SCH (08:00)
[2021-10-09] MEDS: BACLOFEN 20 MG TAB PO SCH ×4 (08:00→19:56)
[2021-10-09] MEDS: CALCIUM 600MG + VIT D 400 IU TAB PO SCH (08:00)
[2021-10-09] MEDS: predniSONE 5 MG TAB PO SCH (08:00)
[2021-10-09] MEDS: DOCUSATE SODIUM 100 MG CAP PO SCH (08:00)
[2021-10-09] MEDS: oxyCODONE HCL IR 5 MG TAB (IMMEDIATE RELEASE) PO SCH ×3 (08:46→19:57)
--- NOTE | 2021-10-09 10:16 | Electrocardiogram Report ---
Test Reason : Blood Pressure : / mmHG Vent. Rate : 052 BPM Atrial Rate : 052 BPM P-R Int : 200 ms QRS Dur : 084 ms QT Int : 408 ms P-R-T Axes : 066 -22 005 degrees QTc Int : 379 ms Poor data quality, interpretation may be adversely affected Sinus bradycardia Poor R wave progression, consider anterior AL vs. lead placement vs. LVH Abnormal ECG When compared with ECG of 14-MAY-2018 12:57, Serial changes of evolving Anterior infarct Present Confirmed by Jordan Robbins ([id number]) on 10/09/2021 10:16:04 AM Referred By: REFERRED SELF Confirmed By:Jordan Robbins
--- NOTE | 2021-10-09 10:35 | Electrocardiogram Report ---
Test Reason : Blood Pressure : / mmHG Vent. Rate : 060 BPM Atrial Rate : 060 BPM P-R Int : 206 ms QRS Dur : 092 ms QT Int : 436 ms P-R-T Axes : 067 -35 -07 degrees QTc Int : 436 ms Normal sinus rhythm Left axis deviation Abnormal ECG When compared with ECG of 08-OCT-2021 16:16, (unconfirmed) ST now depressed in Anterior leads Inverted T waves have replaced nonspecific T wave abnormality in Anterolateral leads QT has lengthened Confirmed by Jordan Robbins ([id number]) on 10/09/2021 10:35:21 AM Referred By: REFERRED SELF Confirmed By:Jordan Robbins
--- NOTE | 2021-10-09 10:36 | Hospitalist Progress Note ---
Date of Service October 09, 2021 Assessment & Plan (1) Fever: (2) Malignant neoplasm of urinary bladder: (3) Prostate cancer: (4) Weakness: (5) Chronic low back pain with bilateral sciatica: Plan 1. Fall. Needs PT, OT. Will monitor in the hospital. Seems to be having difficult time to take care of him at home. Imaging studies are okay. He has bruise on the face. On Xarelto. Fever - Unclear etiology. Ceftriaxone. F.u cultures. CT lumbar spine 2. Questionable confusion. Monitor for delirium. We will check orthostatics. No signs of infection so far. We will monitor. 3. Hypertension, uncontrolled. Seems to be on lisinopril and metoprolol succinate at home on [facility] medication list, the patient says taking lisinopril. Tried to call the , not able to reach, need to confirm. We will place him on home medication lisinopril and metoprolol as per the [facility] and place him on IV labetalol p.r.n. Monitor the blood pressure. 4. History of prostate cancer, on Zytiga and Lupron shots. Follow up with Urology. 5. History of bladder cancer. Follow up with Urology. 6. History of tremor of right hand. Has appointment with Neurology as per PCP notes 7. History of thrombocytopenia. Currently, platelets are okay. 8. History of abdominal aortic aneurysm. Needs followup. 9. 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 Continue his home baclofen and oxycodone with close monitor.. 10. History of monoclonal paraproteinemia. Continue to follow up with Oncology. 11. History of pulmonary embolism, status post IVC filter, on Xarelto. 12. Polymyalgia rheumatica, on prednisone. 13. History of gastroesophageal reflux disease. omeprazole. 14. Deep venous thrombosis prophylaxis, Xarelto. addendum: On the floor spiked temp. ordered cultures. Empirically started on Rocephin. DISPOSITION: Admit to med tele, PT/OT, social service to help with discharge planning. We will keep him full code for now. Admission and Anticipated Discharge Date Admission Date: October 09, 2021 Subjective Patient presenting with fall confusion now noted to have a fever as well. Blood pressure noted to be elevated initially currently improved. Mildly confused. Denies active chest pain shortness of breath nausea vomiting. Review of Systems Review of Systems: All systems reviewed & are unremarkable except as noted in HPI & below Physical Exam Physical Exam: General he is awake alert oriented x3, fatigued appearing but otherwise no distress. HEENT normocephalic atraumatic mucous membranes are fairly dry the neck full range of motion. Cardio regular may be slightly bradycardic no rubs murmurs or gallops Lungs are clear to auscultation no wheezing rales expansion appears to be symmetrical Abdomen is soft nondistended nontender no masses or organomegaly, no guarding/rebound/rigidity. Extremities show no sinus clubbing or edema. Neuro shows cranial nerves II through XII to be overall grossly intact, his speech seems a little bit thick, but not slurred, no facial droop. Motor is 5- out of 5 and symmetric bilateral upper and lower extremities, she has no sensory deficits. Skin no rashes, pallor, icterus Musculoskeletal exam shows a degree of kyphoscoliosis more focused on the lumbar spine as well as multiple postop scars. Mental status shows fair recent and remote recall, normal mood and affect. Difficult to assess judgment and insight. Results & Data Results & Data ([facility]) Vital Signs (Past 12 Hours) Vital Signs Temp Pulse Pulse Resp BP BP BP 10/09/21 07:00 56 L 10/09/21 06:55 36.9 C 63 15 132/60 10/09/21 04:42 37.2 C 10/09/21 03:42 38.7 C H 63 24 137/84 10/09/21 01:39 37.7 C H 63 18 159/81 H 10/09/21 01:00 75 18 151/80 H 10/09/21 00:30 84 22 144/84 H 10/09/21 00:01 77 26 H 184/89 H 10/09/21 00:00 76 28 H 10/08/21 23:30 92 H 28 H 148/97 H 10/08/21 23:17 64 21 10/08/21 23:00 83 26 H 10/08/21 23:00 163/113 H 10/08/21 22:31 77 25 H Pulse Ox O2 Del Method 10/09/21 07:00 10/09/21 06:55 95 Room Air 10/09/21 04:42 10/09/21 03:42 96 Room Air 10/09/21 01:39 95 Room Air 10/09/21 01:00 10/09/21 00:30 97 10/09/21 00:01 96 10/09/21 00:00 96 10/08/21 23:30 10/08/21 23:17 10/08/21 23:00 10/08/21 23:00 10/08/21 22:31 Laboratory Results Short CBC 10/08/21 10/09/21 Range/Units 16:27 04:29 WBC 10.40 12.75 H (4.8-10.8) K/ul Hgb 11.3 L 11.9 L (14.0-18.0) g/dl Hct 34.1 L 35.4 L (40.1-51.0) % Plt Count 182 147 (130-400) K/uL BMP 10/08/21 10/09/21 16:27 04:29 Sodium 140 136 Potassium 3.8 2.6 L D Chloride 107 104 Carbon Dioxide 26 21 BUN 24 H 23 Creatinine 1.01 0.80 Glucose 95 97 Calcium 8.7 8.1 L Liver Function 10/08/21 Range/Units 16:27 Total Bilirubin 1.1 H (0.2-1.0) mg/dl AST 15 (13-39) U/L ALT 13 (7-52) U/L Alkaline Phosphatase 54 (34-104) U/L Albumin 3.6 (3.4-5.0) gm/dl Urine 10/08/21 Range/Units 19:14 Urine Color Yellow Urine Appearance Clear (Clear) Urine pH 8.0 H (4.5-7.5) Ur Specific [place] 1.007 (1.000-1.030) Urine Protein 1+ H (Negative) Urine Glucose (UA) Negative (Negative)
--- NOTE | 2021-10-09 12:38 | CT Scan Report ---
CT lumbar spine wo con HISTORY: 76 years-old Male Fack pain. fever acute low back pain with fever COMPARISON: CT lumbar spine 07/30/2019 TECHNIQUE: Multiple axial CT images of the lumbar spine were obtained without the use of IV contrast. A dose lowering technique was used consistent with the principals of CORBIN. FINDINGS: Study is motion degraded. Surgical clips of the pelvis. A battery pack is noted within the left lower back subcutaneous tissues with a single partially imaged leads extending superiorly outside the fiel d-of-view. Infrahepatic IVC filter. Atherosclerosis of the abdominal aorta with tortuosity. Saccular aneurysmal dilation without rupture is noted involving the distal infrarenal abdominal aorta measurin g up to 2.4 x 3.9 cm. Urothelial thickening of the collecting systems with bilateral moderate perinep hric stranding. Cysts of the kidneys are also again noted. 34 degrees levoscoliosis measured from L1-L3. No acute fracture or subluxation identified. Severe mul tilevel intervertebral disc space narrowing with advanced spondylitic spurring and facet arthrosis re demonstrated. There is degenerative partial bony fusion of the L1-L2 level which is unchanged. Multil evel vacuum disc phenomenon. Irregularity of the L3-L4 and L4-L5 endplates has progressively worsened from the comparison study. There is no significant paravertebral edema at this interspace. Laminecto my changes at L4-L5. Multilevel central canal or neural foraminal narrowing is better assessed by MRI . IMPRESSION: 1. No acute fracture or subluxation identified. 2. 34 degrees levoscoliosis with advanced intervertebral disc space narrowing, spondylitic spurring a nd facet arthrosis. 3. Endplate irregularity at the L3-L4 and L4-L5 levels has progressively worsened from the 07/30/2019 s tudy. These findings are favored to be degenerative. Discitis/osteomyelitis is considered much less l ikely. 4. Urothelial thickening is noted with bilateral perinephric inflammatory stranding. Findings should be correlated with urinalysis to exclude an ascending infection. 5. Saccular aneurysmal dilation of the infrarenal abdominal aorta, 3.9 cm without evidence of rupture . ACT 112: Negative or not required by law. The above report was generated using voice recognition software. It may contain grammatical, syntax o r spelling errors. Electronically signed by: Servando Hammond M.D. 10/09/2021 12:35 PM
[2021-10-09] MEDS: POTASSIUM CHLORIDE CRTAB 20 MEQ TABCR PO SCH ×2 (13:10→19:56)
[2021-10-09] MEDS: ABIRATERONE ACETATE PO SCH (17:11)
[2021-10-09 17:58] LABS: A calco-baum cmplx NotReported Not Detected (NotDetected); Bact fragilis Not Reported Not Detected (NotDetected); C auris Not Reported Not Detected (NotDetected); CTX-M Resistant Gene Not Detected (NotDetected); Calbicans Not Reported Not Detected (NotDetected); Candida glabrata Not Reported Not Detected (NotDetected); Candida krusei Not Reported Not Detected (NotDetected); Cneoformans/gatti Not Reported Not Detected (NotDetected); Cparapsilosis Not Reported Not Detected (NotDetected); Ctropicalis Not Reported Not Detected (NotDetected); E cloacae compx Not Reported Not Detected (NotDetected); Efaecalis Not Reported Not Detected (NotDetected); Efaecium Not Reported Not Detected (NotDetected); Enterobacterales DETECTED (NotDetected); Enterobacterales Not Reported DETECTED (NotDetected); Escherichia coli Not Reported DETECTED (NotDetected); H influenzae Not Reported Not Detected (NotDetected); IMP Resistant Gene Not Detected (NotDetected); K aerogenes Not Reported Not Detected (NotDetected); KPC Resistant Gene Not Detected (NotDetected); Koxytoca Not Reported Not Detected (NotDetected); Kpneumoniae grp Not Reported Not Detected (NotDetected); Lmonocyt Not Reported Not Detected (NotDetected); N meningitidis Not Reported Not Detected (NotDetected); NDM Resistant Gene Not Detected (NotDetected); OXA 48 Like Resistant Gene Not Detected (NotDetected); P aeruginosa Not Reported Not Detected (NotDetected); Proteus spp Not Reported Not Detected (NotDetected); Salmonella spp Not Reported Not Detected (NotDetected); Smarcescens Not Reported Not Detected (NotDetected); Staph lugdunensis Not Reported Not Detected (NotDetected); Staph spp. Not Reported Not Detected (NotDetected); Staphaureus Not Reported Not Detected (NotDetected); Staphepi Not Reported Not Detected (NotDetected); Stenmaltophilia Not Reported Not Detected (NotDetected); Strep agal(GrpB) Not Reported Not Detected (NotDetected); Strep pneum Not Reported Not Detected (NotDetected); Strep pyog (GrpA) Not Reported Not Detected (NotDetected); Strep spp Not Reported Not Detected (NotDetected); VIM Resistant Gene Not Detected (NotDetected); mcr-1 Colistin Resistant Gene Not Detected (NotDetected)
[2021-10-09] MEDS: GABAPENTIN 100 MG CAP PO SCH (19:56)
[2021-10-09] MEDS: TRAVOPROST Z 0.004% OPH SOLN 2.5 ML BTL OPB SCH (19:58)
[2021-10-10] MEDS: ABIRATERONE ACETATE PO SCH (07:30)
[2021-10-10 07:36] LABS: Basophils # (auto) 0.02 K/uL (0-0.2); Basophils % (auto) 0.2 %; Eosinophils # (auto) 0.02 K/uL (0-0.50); Eosinophils % (auto) 0.2 %; Hematocrit (blood only) 35.5 % (40.1-51.0); Hemoglobin 11.2 g/dl (14.0-18.0); Immature Granulocytes # (auto) 0.04 K/uL (0.00-0.02); Immature Granulocytes % (auto) 0.4 %; Lymphocytes # (auto) 0.67 K/uL (1.2-3.4); Mean Corpuscular Hemoglobin 26.4 pg (25.0-34.0); Mean Corpuscular Hgb Conc 31.5 g/dL (32.0-36.0); Mean Corpuscular Volume 83.5 fL (80.0-100.0); Monocytes # (auto) 1.48 K/uL (0.24-0.82); Monocytes % (auto) 13.2 %; Neutrophils # (auto) 8.94 K/uL (1.4-6.5); Platelet Count 122 K/uL (130-400); RDW Standard Deviation 46.1 fL (36.4-46.3); Red Blood Count 4.25 M/uL (4.63-6.08); White Blood Count 11.17 K/ul (4.8-10.8)
[2021-10-10] MEDS: cefTRIAXone SODIUM 1,000 MG in DEXTROSE 5% 50 ML IV SCH (07:40)
[2021-10-10] MEDS: lisinopril 10 MG TAB PO SCH (08:16)
[2021-10-10] MEDS: DOCUSATE SODIUM 100 MG CAP PO SCH (08:16)
[2021-10-10] MEDS: predniSONE 5 MG TAB PO SCH (08:16)
[2021-10-10] MEDS: CALCIUM 600MG + VIT D 400 IU TAB PO SCH (08:16)
[2021-10-10] MEDS: METOPROLOL SUCC 25MG EXT REL TAB PO SCH (08:16)
[2021-10-10] MEDS: RIVAROXABAN 20 MG TAB PO SCH (08:17)
[2021-10-10] MEDS: BACLOFEN 20 MG TAB PO SCH ×4 (08:17→21:20)
[2021-10-10] MEDS: PANTOprazole 40 MG TAB PO SCH (08:17)
[2021-10-10] MEDS: oxyCODONE HCL IR 5 MG TAB (IMMEDIATE RELEASE) PO SCH ×3 (08:17→21:27)
[2021-10-10] MEDS: POTASSIUM CHLORIDE CRTAB 20 MEQ TABCR PO SCH ×3 (08:26→21:22)
[2021-10-10 08:35] LABS: BUN Creatinine Ratio 31.5 (10-20); Calcium 7.9 mg/dl (8.5-10.1); Creatinine Clr Calc Pharmacy 61.9 ml/min; Est GFR (Non-African American) 79.4 ml/min; Potassium 3.5 mmol/L (3.5-5.1)
--- NOTE | 2021-10-10 10:03 | Hospitalist Progress Note ---
Date of Service October 10, 2021 Assessment & Plan (1) Fever: (2) Malignant neoplasm of urinary bladder: (3) Prostate cancer: (4) Weakness: (5) Chronic low back pain with bilateral sciatica: Plan 1. Fall. Needs PT, OT. Will monitor in the hospital. Seems to be having difficult time to take care of him at home. Imaging studies are okay. He has bruise on the face. On Xarelto. - Fever - Unclear etiology. F.u cultures. CT lumbar spine with results below - CT spine demonstrating possible lumbar osteomyelitis versus discitis-initiate vancomycinorthopedics evaluation infectious disease evaluation ESR CRP - Questional pyelonephritis on CTon ceftriaxone for now. UA does not look overtly significant. We will check a repeat obtain urine culture as well. - Irregular rhythm. Obtain EKG. Already anticoagulated with Xarelto for history of pulmonary embolism and DVT. Patient to receive a.m. metoprolol. Monitor response. 2. Questionable confusion. Currently resolved 3. Hypertension, uncontrolled. Seems to be on lisinopril and metoprolol succinate at home on [facility] medication list, the patient says taking lisinopril. Tried to call the , not able to reach, need to confirm. We will place him on home medication lisinopril and metoprolol as per the [facility] and place him on IV labetalol p.r.n. Monitor the blood pressure. 4. History of prostate cancer, on Zytiga and Lupron shots. Follow up with Urology.We will place a palliative consult 5. History of bladder cancer. Follow up with Urology. 6. History of tremor of right hand. Has appointment with Neurology as per PCP notes 7. History of thrombocytopenia. Currently, platelets are okay. 8. History of abdominal aortic aneurysm. Needs followup. 9. 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 Continue his home baclofen and oxycodone with close monitor.. 10. History of monoclonal paraproteinemia. Continue to follow up with Oncology. 11. History of pulmonary embolism, status post IVC filter, on Xarelto. 12. Polymyalgia rheumatica, on prednisone. 13. History of gastroesophageal reflux disease. omeprazole. 14. Deep venous thrombosis prophylaxis, Xarelto. DISPOSITION: Admit to [facility], PT/OT, social service to help with discharge planning. Admission and Anticipated Discharge Date Admission Date: October 09, 2021 Subjective States he overall feels well however he has significant pain in his foot that is his neuropathy. Awaiting to receive his a.m. pain medication. States they would likely help him. Noted in atrial fibrillation rapid ventricle response. Denies any chest pain shortness of breath nausea vomiting. Complains of hematuria. Denies any dysuria currently Informs of hematemesis 1 week back. CAT scan with questionable lumbar discitis versus osteomyelitis Possible pyelonephritis Review of Systems Review of Systems: All systems reviewed & are unremarkable except as noted in HPI & below Physical Exam Physical Exam: General he is awake alert oriented x3, HEENT normocephalic atraumatic mucous membranes are fairly dry the neck full range of motion. Cardio irregularly irregular tachycardia Lungs are clear to auscultation no wheezing rales expansion appears to be symmetrical Abdomen is soft nondistended nontender no masses or organomegaly, no guarding/rebound/rigidity. Extremities show no sinus clubbing or edema. Neuro shows cranial nerves II through XII to be overall grossly intact, his speech seems a little bit thick, but not slurred, no facial droop. Motor is 5- out of 5 and symmetric bilateral upper and lower extremities, she has no sensory deficits. Skin no rashes, pallor, icterus Musculoskeletal exam shows a degree of kyphoscoliosis more focused on the lumbar spine as well as multiple postop scars. Mental status shows fair recent and remote recall, normal mood and affect. Difficult to assess judgment and insight. Results & Data Results & Data ([facility]) Vital Signs (Past 12 Hours) Vital Signs Temp Pulse Pulse Resp BP BP BP 10/10/21 07:00 75 10/10/21 08:13 37.2 C 139 H 30 H 105/68 10/10/21 03:32 37.9 C H 69 18 176/91 H 10/09/21 23:30 53 L 18 10/09/21 23:14 124/68 10/09/21 23:14 56 L 21 10/09/21 23:00 52 L 15 10/09/21 22:30 55 L 11 L 10/09/21 22:00 58 L 9 L 10/09/21 23:14 37.2 C 55 L 21 124/68 Pulse Ox O2 Del Method 10/10/21 07:00 10/10/21 08:13 96 Room Air 10/10/21 03:32 95 Room Air 10/09/21 23:30 10/09/21 23:14 10/09/21 23:14 94 10/09/21 23:00 10/09/21 22:30 10/09/21 22:00 10/09/21 23:14 95 Room Air Laboratory Results Laboratory Results WBC 11.17 K/ul (4.8-10.8) H 10/10/21 06:45 RBC 4.25 M/uL (4.63-6.08) L 10/10/21 06:45 Hgb 11.2 g/dl (14.0-18.0) L 10/10/21 06:45 Hct 35.5 % (40.1-51.0) L 10/10/21 06:45 MCV 83.5 fL (80.0-100.0) 10/10/21 06:45 MCH 26.4 pg (25.0-34.0) 10/10/21 06:45 MCHC 31.5 g/dL (32.0-36.0) L 10/10/21 06:45 RDW Std Deviation 46.1 fL (36.4-46.3) 10/10/21 06:45 RDW Coeff of Luis Angel 15.0 % (11.5-14.5) H 10/10/21 06:45 Plt Count 122 K/uL (130-400) L 10/10/21 06:45 MPV 10.0 fL (9.4-12.4) 10/10/21 06:45 Immature Gran % (Auto) 0.4 % 10/10/21 06:45 Neut % (Auto) 80.0 % 10/10/21 06:45 Lymph % (Auto) 6.0 % 10/10/21 06:45 [place] % (Auto) 13.2 % 10/10/21 06:45 Eos % (Auto) 0.2 % 10/10/21 06:45 Baso % (Auto) 0.2 % 10/10/21 06:45 Neut # (Auto) 8.94 K/uL (1.4-6.5) H 10/10/21 06:45 Lymph # (Auto) 0.67 K/uL (1.2-3.4) L 10/10/21 06:45 [place] # (Auto) 1.48 K/uL (0.24-0.82) H 10/10/21 06:45 Eos # (Auto) 0.02 K/uL (0-0.50) 10/10/21 06:45 Baso # (Auto) 0.02 K/uL (0-0.2) 10/10/21 06:45 Immature Gran # (Auto) 0.04 K/uL (0.00-0.02) H 10/10/21 06:45 Sodium 136 mmol/L (136-145) 10/10/21 06:45 Potassium 3.5 mmol/L (3.5-5.1) D 10/10/21 06:45 Chloride 106 mmol/L (98-107) 10/10/21 06:45 Carbon Dioxide 23 mmol/L (21-32) 10/10/21 06:45 Anion Gap 7 (3-11) 10/10/21 06:45 BUN 29 mg/dl (6-23) H 10/10/21 06:45 Creatinine 0.92 mg/dl (0.6-1.4) 10/10/21 06:45 Est Cr Clr Drug Dosing 61.9 ml/min 10/10/21 06:45 Est GFR ( Amer) 92.0 ml/min 10/10/21 06:45 Est GFR (Non-Af Amer) 79.4 ml/min 10/10/21 06:45 BUN/Creatinine Ratio 31.5 (10-20) H 10/10/21 06:45 Glucose 96 mg/dl (70-99(Fasting)) 10/10/21 06:45 Calcium 7.9 mg/dl (8.5-10.1) L 10/10/21 06:45 Magnesium 1.7 mg/dl (1.7-2.4) 10/09/21 04:29 Total Bilirubin 1.1 mg/dl (0.2-1.0) H 10/08/21 16:27 AST 15 U/L (13-39) 10/08/21 16:27 ALT 13 U/L (7-52) 10/08/21 16:27 Alkaline Phosphatase 54 U/L (34-104) 10/08/21 16:27 Troponin I High Sens 12.6 pg/ml (0-20) 10/08/21 16:27 Total Protein 6.3 gm/dl (6.0-8.3) 10/08/21 16:27 Albumin 3.6 gm/dl (3.4-5.0) 10/08/21 16: Globulin 2.7 gm/dl (2.5-4.0) 10/08/21 16: Albumin/Globulin Ratio 1.3 (0.9-2) 10/08/21 16:27 TSH 0.563 uIu/ml (0.300-4.500) 10/08/21 16:27 Urine Color Yellow 10/08/21 19:14 Urine Appearance Clear (Clear) 10/08/21 19:14 Urine pH 8.0 (4.5-7.5) H 10/08/21 19:14 Ur Specific [place] 1.007 (1.000-1.030) 10/08/21 19:14 Urine Protein 1+ (Negative) H 10/08/21 19:14 Urine Glucose (UA) Negative (Negative) 10/08/21 19:14 Urine Ketones Trace (Negative) H 10/08/21 19:14 Urine Blood 2+ (Negative) H 10/08/21 19:14 Urine Nitrite Negative (Negative) 10/08/21 19:14 Urine Bilirubin Negative (Negative) 10/08/21 19:14 Urine Urobilinogen Negative (Negative) 10/08/21 19:14 Ur Leukocyte Esterase Trace (Negative) H 10/08/21 19:14 Urine WBC (Auto) 1-5 /hpf (0-5) 10/08/21 19:14 Urine RBC (Auto) 10-30 /hpf (0-4) H 10/08/21 19:14 U Hyaline Cast (Auto) 0 /lpf (0-5) 10/08/21 19:14 U Epithel Cells (Auto) 0-5 /lpf (0-5) 10/08/21 19:14 Urine Bacteria (Auto) Negative (Negative) 10/08/21 19:14 Enterobacterales (PCR) DETECTED (NotDetected) A 10/09/21 04:33 E. coli (PCR) DETECTED (NotDetected) A 10/09/21 04:33 SARS-CoV-2, RNA, NAAT NEGATIVE (NEGATIVE) 10/08/21 Unknown mcr-1 Colistin Res Gene PCR Not Detected (NotDetected) 10/09/21 04:33 blaIMP Car res Gene PCR Not Detected (NotDetected) 10/09/21 04:33 KPC-Carbap Res Gene PCR Not Detected (NotDetected) 10/09/21 04:33 blaNDM Car Res Gene PCR Not Detected (NotDetected) 10/09/21 04:33 OXA-48 Carbapenem Resis Gene (PCR) Not Detected (NotDetected) 10/09/21 04:33 blaVIM Car Res Gene PCR Not Detected (NotDetected) 10/09/21 04:33 CTX-M Gene Resistance (PCR) Not Detected (NotDetected) 10/09/21 04:33 Bld Cult ID Panel PCR See PCR Comment (NotDetected) 10/09/21 04:33 Impressions Chest X-Ray 10/08/21 16:42 XR chest 1V portable CLINICAL HISTORY: weakness TECHNIQUE: Single frontal radiograph of the chest was obtained. Comparison: Comparison is made to chest radiograph 05/14/2018 FINDINGS: Spinal stimulator is unchanged from prior exam. The aorta is tortuous. The remainder of the cardiomediastinal silhouette is unremarkable. The lungs are clear. No evidence of pleural effusion or pneumothorax. IMPRESSION: No acute chest disease. ACT 112: Negative or not required by law. Electronically signed by: Andrzej Méndez M.D. 10/08/2021 5:[address] 10/08/21 16:58 CT SCAN OF THE CERVICAL SPINE CLINICAL HISTORY: Fall. COMPARISON STUDY: CT of the cervical spine dated 12/26/2017. TECHNIQUE: CT scan of the cervical spine is performed from the skull base to the upper thoracic spine. Images are reviewed in the axial, sagittal, and coronal planes. IV contrast was not administered for this examination. A dose lowering technique was utilized adhering to the principles of ALARA. CT DOSE: 1027.03 mGy.cm FINDINGS: Skeletal structures: The skeletal structures are osteopenic. There is no evidence of fracture or subluxation involving the cervical spine. Vertebral body height and alignment are maintained. 5 mm of anterolisthesis is noted at C7-T1. There is straightening of cervical lordosis. Anterior osteophytes are seen throughout. There is postoperative change from anterior spinal fusion at C3-C4. The odontoid process and lateral masses are intact. Cystic change in noted at the base of the odontoid process. The atlantoaxial articulation is preserved noting productive degenerative change. The spinous processes appear intact. Ther e is moderate to advanced multilevel cervical spondylosis. Uncovertebral and facet arthropathy contribute to neural foraminal narrowing at most levels. Intervertebral discs: There has been discectomy at C3-C4. Advanced disc space narrowing is seen at C4-C5, C5-C6, and C6-C7 with associated endplate sclerosis. Moderate disc space narrowing is noted at C2-C3 and C7-T1. Central canal: Widely patent. Soft tissues: The prevertebral and paraspinous soft tissues are within normal limits. There is atherosclerotic calcification of the carotid bulbs. Calvarium: The visualized calvarium at the skull base appears intact. Brain parenchyma: Partially visualized brain parenchyma at the skull base is within normal limits. Sinuses and mastoids: The visualized paranasal sinuses are clear. The mastoid air cells are well pneumatized. Lung apices: Clear as visualized. IMPRESSION: 1. There is no evidence of fracture or subluxation involving the cervical spine. 2. Osteopenia with postoperative and spondylotic change as above. ACT 112: Negative or not required by law. Electronically signed by: Brad Gonzalez M.D. 10/08/2021 5:[address] 10/08/21 16:58 CT head/brain wo con CLINICAL HISTORY: fall, anticoagulated Technique: Contiguous axial CT images of the head were acquired from the base of the skull to the vertex without intravenous contrast administration. Images were viewed in brain, subdural and bone windows. Automated dose lowering techniques and/or adjustment according to patient size were utilized for this exam. Comparison: Comparison is made to CT head 05/14/2018 Findings: The ventricles, basal cisterns, and cerebral sulci are normal. There is no acute intracranial hemorrhage or evidence of acute territorial infarction. Neither mass effect, shift of the midline structures, nor abnormal extra-axial fluid collections are shown. Imaged portions of the paranasal sinuses and mastoid air cells are clear. The orbits appear normal. There are no acute fractures of the calvaria. Soft tissue swelling is seen in the left frontal region. Impression: No acute intracranial hemorrhage or skull fractures. Scalp swelling is seen in the left frontal region. ACT 112: Negative or not required by law. Electronically signed by: Andrzej Méndez M.D. 10/08/2021 5:[address] 10/09/21 10:39 CT lumbar spine wo con HISTORY: 76 years-old Male Fack pain. fever acute low back pain with fever COMPARISON: CT lumbar spine 07/30/2019 TECHNIQUE: Multiple axial CT images of the lumbar spine were obtained without the use of IV contrast. A dose lowering technique was used consistent with the principals of ALARA. FINDINGS: Study is motion degraded. Surgical clips of the pelvis. A battery pack is noted within the left lower back subcutaneous tissues with a single partially imaged leads extending superiorly outside the [id number]. Infrahepatic IVC filter. Atherosclerosis of the abdominal aorta with tortuosity. Saccular aneurysmal dilation without rupture is noted involving the distal infrarenal abdominal aorta measuring up to 2.4 x 3.9 cm. Urothelial thickening of the collecting systems with bilateral moderate perinephric stranding. Cysts of the kidneys are also again noted. 34 degrees levoscoliosis measured from L1-L3. No acute fracture or subluxation identified. Severe multilevel intervertebral disc space narrowing with advanced spondylitic spurring and facet arthrosis redemonstrated. There is degenerative partial bony fusion of the L1-L2 level which is unchanged. Multilevel vacuum disc phenomenon. Irregularity of the L3-L4 and L4-L5 endplates has progressively worsened from the comparison study. There is no significant paravertebral edema at this interspace. Laminectomy changes at L4-L5. Multilevel central canal or neural foraminal narrowing is better assessed by MRI. IMPRESSION: 1. No acute fracture or subluxation identified. 2. 34 degrees levoscoliosis with advanced intervertebral disc space narrowing, spondylitic spurring and facet arthrosis. 3. Endplate irregularity at the L3-L4 and L4-L5 levels has progressively worsened from the 07/30/2019 study. These findings are favored to be degenerative. Discitis/osteomyelitis is considered much less likely. 4. Urothelial thickening is noted with bilateral perinephric inflammatory stranding. Findings should be correlated with urinalysis to exclude an ascending infection. 5. Saccular aneurysmal dilation of the infrarenal abdominal aorta, 3.9 cm without evidence of rupture. ACT 112: Negative or not required by law. The above report was generated using voice recognition software. It may contain grammatical, syntax or spelling errors. Electronically signed by: Servando Hammond M.D. 10/09/2021 12:35 PM
[2021-10-10] MEDS ORDERED: VANCOMYCIN CONSULT ACTIVE PRN (10:07)
[2021-10-10] MEDS ORDERED: VANCOMYCIN HCL 1,000 MG in SODIUM CHLORIDE 0.9% 250 ML IV STA (10:07)
--- NOTE | 2021-10-10 10:27 | Communication Note ---
Date of Service: October 10, 2021 Talked to patient's over the phone provided an update on current management and plan. Answered questions.
[2021-10-10] MEDS ORDERED: VANCOMYCIN HCL 1,500 MG in SODIUM CHLORIDE 0.9% 500 ML IV ONE (10:45)
[2021-10-10] MEDS: ACETAMINOPHEN 325 MG TAB PO PRN (11:20)
[2021-10-10] MEDS: DIGOXIN 125 MCG in SYRINGE 9.5 ML IV SCH ×2 (13:53→16:40)
--- NOTE | 2021-10-10 14:56 | Gastrointestinal Consultation ---
Date of Consultation October 10, 2021 Assessment & Plan (1) Coffee ground emesis: Remote Hx of coffee ground emesis which resolved spontaneously. No current overt GI bleeding. Continue PPI as it is likely related to esophagitis. If this recurs in the future then will consider OP EGD. Recall GI if needed. History of Present Illness Attending Physician: Tyler Zayas MD History of Present Illness 76 years old male patient with multiple medical comorbids, admitted after a fall and head hematoma, GI consulted as he reported an episode of coffee ground emesis last week which spontaneously resolved, no current evidence of GI bleeding. He recent EGD with no significant pathology. Allergies Allergy/AdvReac Type Severity Reaction Status Date / Time adalimumab Allergy Severe GI SYMPTOMS Verified 10/08/21 16:58 mirabegron Allergy Intermediate NEUROLOGICAL Verified 10/08/21 16:58 SYMPTOMS/STOMACH PAINS methotrexate Allergy Unknown Blood Verified 10/08/21 16:58 platelets drop. naproxen Allergy Unknown dilusional Verified 10/08/21 16:58 Home Medications Medication Instructions Recorded Confirmed Type abiraterone 250 mg tablet (Zytiga) 1,000 mg PO QAM 01/26/18 10/08/21 History calcium carbonate 500 mg-vitamin 1 tab PO QAM 01/26/18 10/08/21 History D3 10 mcg (400 unit) tablet (Calcium 500 With D) docusate sodium 50 mg capsule 50 mg PO QAM 01/26/18 10/08/21 History leuprolide acetate (6 month) 45 mg 1 dose IM UD 01/26/18 10/08/21 History intramuscular syringe kit (Lupron Depot) pregabalin 300 mg capsule (Lyrica) 300 mg PO BID 01/26/18 10/08/21 History timolol maleate (PF) 0.5 % eye 1 drp OPB BID 01/26/18 10/08/21 History drops in a dropperette travoprost 0.004 % eye drops 1 drp OPB HS 01/26/18 10/08/21 History (Travatan Z) rivaroxaban 20 mg tablet (Xarelto) 20 mg PO QAM #0 tabs 02/17/18 10/08/21 Rx oxycodone 10 mg tablet 10 mg PO .COMPLEX 09/24/21 10/08/21 History prednisone 5 mg tablet 5 mg PO QAM 09/24/21 10/08/21 History baclofen 10 mg tablet 20 mg PO QID 10/08/21 10/08/21 History celecoxib 100 mg capsule 100 mg PO BID 10/08/21 10/08/21 History gabapentin 100 mg capsule 100 mg PO HS 10/08/21 10/08/21 History Patient History Medical History Abdominal aortic aneurysm Chronic back pain Deep vein thrombosis Glaucoma [place] filter in place H/O prostate cancer History of bladder cancer History of ITP Malignant neoplasm of urinary bladder On anticoagulant therapy Osteoarthritis Overactive bladder Prostate cancer Pulmonary embolism Sleep apnea Transient ischemic attack (TIA) Surgical History H/O shoulder surgery History of bladder surgery History of laminectomy History of prostatectomy History of total hip arthroplasty Hx of cervical spine surgery Family History Mother Alzheimer disease Father Aortic aneurysm Other Family history non-contributory Social History Smoking Status: Current every day smoker Tobacco Type: Cigars Cigarettes Per Day: 1 PACK OF MINI-CIGARS PER MONTH; Second Hand Exposure: No; Hx Alcohol Use: No Hx Substance Use: No Preferred Language: Vietnamese Communication Ability: Effective Structural Manager Required: No Beliefs That Will Affect Care: None marital status: Current Living Situation: Spouse Other Information That Helps Us Care for You: No Feels Safe at Home: Yes Safety Concerns: Feels Safe At This Time Assistive Devices: Walker Assistive Devices Comment: shower chair Review of Systems Constitutional: no fever, no chills, no fatigue and no weight loss Eyes: no eye pain and no worsening vision Ear, Nose, Mouth, Throat: no tinnitus, no dizziness, no nasal discharge and no epistaxis Respiratory: no cough, no dyspnea, no dyspnea on exertion and no wheezing Cardiovascular: no chest pain, no orthopnea, no palpitations and no edema Gastrointestinal: as per Subjective / HPI Musculoskeletal: no stiffness and no myalgia Neurologic: no localized weakness, no paralysis, no tremor(s) and no headache(s) Endocrine: no polydipsia and no polyuria Hematologic / Lymphatic: no easy bleeding and no night sweats Physical Exam Constitutional: + well hydrated, cooperative and comfortable Large facial hematoma Eyes: PERRL, conjunctivae normal, anicteric sclerae ENMT: external ear and nose normal, oropharynx normal Neck: normal visual inspection and trachea midline Respiratory: normal respiratory effort, lungs clear to auscultation Auscultation: no wheezes Cardiovascular: RRR, no murmur, no edema Gastrointestinal (Abdomen): normal bowel sounds, soft, nontender, no hepatosplenomegaly Musculoskeletal: no cyanosis or clubbing, extremities motor strength 5/5 Skin: no rashes, warm and dry Neurologic: awake; no focal motor deficits Motor/Sensory: no tremor Results & Data ([facility]) Vital Signs (Past 12 Hours) Vital Signs Temp Pulse Pulse Resp BP BP Pulse Ox 10/10/21 07:30 10/10/21 13:53 125 H 10/10/21 12:19 37.5 C 119 H 25 H 91/44 L 95 10/10/21 07:00 75 10/10/21 08:13 37.2 C 139 H 30 H 105/68 96 10/10/21 03:32 37.9 C H 69 18 176/91 H 95 O2 Del Method 10/10/21 07:30 Room Air 10/10/21 13:53 10/10/21 12:19 Room Air 10/10/21 07:00 10/10/21 08:13 Room Air 10/10/21 03:32 Room Air Laboratory Results Laboratory Results - last 24 hr 10/09/21 10/09/21 10/10/21 04:33 14:48 06:45 WBC 11.17 H RBC 4.25 L Hgb 11.2 L Hct 35.5 L MCV 83.5 MCH 26.4 MCHC 31.5 L RDW Std Deviation 46.1 RDW Coeff of Luis Angel 15.0 H Plt Count 122 L MPV 10.0 Immature Gran % (Auto) 0.4 Neut % (Auto) 80.0 Lymph % (Auto) 6.0 [place] % (Auto) 13.2 Eos % (Auto) 0.2 Baso % (Auto) 0.2 Neut # (Auto) 8.94 H Lymph # (Auto) 0.67 L [place] # (Auto) 1.48 H Eos # (Auto) 0.02 Baso # (Auto) 0.02 Immature Gran # (Auto) 0.04 H ESR Sodium Potassium 4.4 D Chloride Carbon Dioxide Anion Gap BUN Creatinine Est Cr Clr Drug Dosing Est GFR ( Amer) Est GFR (Non-Af Amer) BUN/Creatinine Ratio Glucose Calcium C-Reactive Protein Enterobacterales (PCR) DETECTED A E. coli (PCR) DETECTED A mcr-1 Colistin Res Gene PCR Not Detected blaIMP Car res Gene PCR Not Detected KPC-Carbap Res Gene PCR Not Detected blaNDM Car Res Gene PCR Not Detected OXA-48 Carbapenem Resis Gene (PCR) Not Detected blaVIM Car Res Gene PCR Not Detected CTX-M Gene Resistance (PCR) Not Detected Bld Cult ID Panel PCR See PCR Comment 10/10/21 10/10/21 10/10/21 06:45 06:45 06:45 WBC RBC Hgb Hct MCV MCH MCHC RDW Std Deviation RDW Coeff of Luis Angel Plt Count MPV Immature Gran % (Auto) Neut % (Auto) Lymph % (Auto) [place] % (Auto) Eos % (Auto) Baso % (Auto) Neut # (Auto) Lymph # (Auto) [place] # (Auto) Eos # (Auto) Baso # (Auto) Immature Gran # (Auto) ESR 35 H Sodium 136 Potassium 3.5 D Chloride 106 Carbon Dioxide 23 Anion Gap 7 BUN 29 H Creatinine 0.92 Est Cr Clr Drug Dosing 61.9 Est GFR ( Amer) 92.0 Est GFR (Non-Af Amer) 79.4 BUN/Creatinine Ratio 31.5 H Glucose 96 Calcium 7.9 L C-Reactive Protein 20.21 H Enterobacterales (PCR) E. coli (PCR) mcr-1 Colistin Res Gene PCR blaIMP Car res Gene PCR KPC-Carbap Res Gene PCR blaNDM Car Res Gene PCR OXA-48 Carbapenem Resis Gene (PCR) blaVIM Car Res Gene PCR CTX-M Gene Resistance (PCR) Bld Cult ID Panel PCR
--- NOTE | 2021-10-10 15:17 | Pharmacy Report ---
Pharmacy PK ABX Note - Date of Service October 10, 2021 - Assessment and Plan Assessment 76 year old M receiving empiric vancomycin + ceftriaxone for treatment of fever of unknown source; possible lumbar discitis/osteo, possible pyelonephritis. Pertinent microbiologic data includes: GNB growing in 2 or 4 BC, BCID2 indicates E. coli (no resistance genes identified) ID consulted Plan Vancomycin * Loading dose: 1500 mg IV x 1 * Maintenance dose: 1250 mg IV every 18 hours * Regimen is predicted to achieve target AUC/ANGELITA of 400-600 mg/L.hr * predicted steady state AUC: 568 * predicted steady state trough: 17.4 * Level to be ordered if vanco is continued > 48 hours Ceftriaxone - recommend increasing to 2g IV q24h Pharmacy will continue to follow and will adjust dose/frequency as necessary. Thank you. Pharmacy has transitioned to AUC monitoring for vancomycin. AUC/ANGELITA is the preferred PK/PD target and is associated with decreased risk of nephrotoxicity compared to traditional trough targets.
[2021-10-10] MEDS ORDERED: cefTRIAXone SODIUM 2,000 MG in DEXTROSE 5% 50 ML IV SCH (19:00)
[2021-10-10] MEDS: TIMOLOL OP SCH (21:21)
[2021-10-10] MEDS: GABAPENTIN 100 MG CAP PO SCH (21:21)
[2021-10-10] MEDS: DORZOLAMIDE OP SCH (21:21)
[2021-10-10] MEDS: TRAVOPROST Z 0.004% OPH SOLN 2.5 ML BTL OPB SCH (21:22)
[2021-10-11] MEDS ORDERED: VANCOMYCIN HCL 1,250 MG in SODIUM CHLORIDE 0.9% 250 ML IV SCH (02:00)
--- NOTE | 2021-10-11 07:21 | Electrocardiogram Report ---
Test Reason : Blood Pressure : / mmHG Vent. Rate : 064 BPM Atrial Rate : 064 BPM P-R Int : 140 ms QRS Dur : 082 ms QT Int : 436 ms P-R-T Axes : 060 011 018 degrees QTc Int : 449 ms Normal sinus rhythm Normal ECG When compared with ECG of 09-OCT-2021 06:13, ST no longer depressed in Anterolateral leads T wave inversion no longer evident in Anterolateral leads Confirmed by Johnny Segal ([id number]) on 10/11/2021 7:20:45 AM Referred By: REFERRED SELF Confirmed By:Johnny Segal
[2021-10-11 07:32] LABS: Basophils # (auto) 0.02 K/uL (0-0.2); Basophils % (auto) 0.3 %; Eosinophils # (auto) 0.16 K/uL (0-0.50); Eosinophils % (auto) 2.2 %; Hematocrit (blood only) 36.4 % (40.1-51.0); Hemoglobin 11.7 g/dl (14.0-18.0); Immature Granulocytes # (auto) 0.02 K/uL (0.00-0.02); Immature Granulocytes % (auto) 0.3 %; Lymphocytes # (auto) 0.81 K/uL (1.2-3.4); Lymphocytes % (auto) 11.3 %; Mean Corpuscular Hemoglobin 26.4 pg (25.0-34.0); Mean Corpuscular Hgb Conc 32.1 g/dL (32.0-36.0); Mean Corpuscular Volume 82.2 fL (80.0-100.0); Mean Platelet Volume 10.4 fL (9.4-12.4); Monocytes # (auto) 0.97 K/uL (0.24-0.82); Monocytes % (auto) 13.5 %; Neutrophils % (auto) 72.4 %; Platelet Count 129 K/uL (130-400); RDW Standard Deviation 45.5 fL (36.4-46.3); Red Blood Count 4.43 M/uL (4.63-6.08); White Blood Count 7.18 K/ul (4.8-10.8)
--- NOTE | 2021-10-11 07:33 | Electrocardiogram Report ---
Test Reason : Blood Pressure : / mmHG Vent. Rate : 097 BPM Atrial Rate : 159 BPM P-R Int : 000 ms QRS Dur : 084 ms QT Int : 356 ms P-R-T Axes : 000 -01 033 degrees QTc Int : 452 ms Atrial fibrillation When compared with ECG of 10-OCT-2021 06:19, Atrial fibrillation has replaced Sinus rhythm Confirmed by Johnny Segal ([id number]) on 10/11/2021 7:33:27 AM Referred By: REFERRED SELF Confirmed By:Johnny Segal
[2021-10-11] MEDS: ABIRATERONE ACETATE PO SCH (07:47)
[2021-10-11] MEDS: oxyCODONE HCL IR 5 MG TAB (IMMEDIATE RELEASE) PO SCH ×3 (07:50→20:08)
[2021-10-11] MEDS: lisinopril 10 MG TAB PO SCH (07:51)
[2021-10-11] MEDS: POTASSIUM CHLORIDE CRTAB 20 MEQ TABCR PO SCH ×3 (07:51→20:08)
[2021-10-11] MEDS: TIMOLOL OP SCH ×3 (07:51→20:10)
[2021-10-11] MEDS: DORZOLAMIDE OP SCH ×3 (07:51→20:10)
[2021-10-11 07:52] LABS: BUN Creatinine Ratio 29.2 (10-20); Calcium 7.7 mg/dl (8.5-10.1); Creatinine Clr Calc Pharmacy 59.3 ml/min; Est GFR (African American) 87.4 ml/min; Est GFR (Non-African American) 75.4 ml/min; Potassium 4.6 mmol/L (3.5-5.1)
[2021-10-11] MEDS: BACLOFEN 20 MG TAB PO SCH ×4 (07:52→20:09)
[2021-10-11] MEDS: predniSONE 5 MG TAB PO SCH (07:52)
[2021-10-11] MEDS: CALCIUM 600MG + VIT D 400 IU TAB PO SCH (07:52)
[2021-10-11] MEDS: DOCUSATE SODIUM 100 MG CAP PO SCH (07:52)
[2021-10-11] MEDS: PANTOprazole 40 MG TAB PO SCH (07:52)
[2021-10-11] MEDS: METOPROLOL SUCC 25MG EXT REL TAB PO SCH (07:53)
[2021-10-11] MEDS: DIGOXIN 0.125 MG TAB PO SCH (07:53)
[2021-10-11] MEDS: RIVAROXABAN 20 MG TAB PO SCH (08:38)
[2021-10-11] MEDS: ACETAMINOPHEN 325 MG TAB PO PRN ×2 (08:40→20:09)
--- NOTE | 2021-10-11 10:05 | Orthopedic Consultation ---
Date of Consultation October 11, 2021 Assessment & Plan (1) Spinal stenosis: CAT scan lumbar spine demonstrates evidence of advanced degenerative change but I do not suspect any infectious discitis. Patient is currently asymptomatic with back pain. This would be consistent with degenerative change only. If there is further concern in the future you may want to consider an MRI lumbar spine. It is not warranted at this time. History of Present Illness Reason for Consultation: Rule out discitis Attending Physician: Luis Carlos Joiner MD History of Present Illness This is a 76-year-old male known to me from having placed a dorsal column stimulator in 2018. He is here status post fall. At this point he denies any back pain. He states the stimulator still works and his oral medications are provided marked relief. He denies any pain with transitions or moving around the bed in the lumbar spine. Denies any leg pain today. Allergies Allergy/AdvReac Type Severity Reaction Status Date / Time adalimumab Allergy Severe GI SYMPTOMS Verified 10/08/21 16:58 mirabegron Allergy Intermediate NEUROLOGICAL Verified 10/08/21 16:58 SYMPTOMS/STOMACH PAINS methotrexate Allergy Unknown Blood Verified 10/08/21 16:58 platelets drop. naproxen Allergy Unknown dilusional Verified 10/08/21 16:58 Home Medications Medication Instructions Recorded Confirmed Type abiraterone 250 mg tablet (Zytiga) 1,000 mg PO QAM 01/26/18 10/08/21 History calcium carbonate 500 mg-vitamin 1 tab PO QAM 01/26/18 10/08/21 History D3 10 mcg (400 unit) tablet (Calcium 500 With D) docusate sodium 50 mg capsule 50 mg PO QAM 01/26/18 10/08/21 History leuprolide acetate (6 month) 45 mg 1 dose IM UD 01/26/18 10/08/21 History intramuscular syringe kit (Lupron Depot) pregabalin 300 mg capsule (Lyrica) 300 mg PO BID 01/26/18 10/08/21 History timolol maleate (PF) 0.5 % eye 1 drp OPB BID 01/26/18 10/08/21 History drops in a dropperette travoprost 0.004 % eye drops 1 drp OPB HS 01/26/18 10/08/21 History (Travatan Z) rivaroxaban 20 mg tablet (Xarelto) 20 mg PO QAM #0 tabs 02/17/18 10/08/21 Rx oxycodone 10 mg tablet 10 mg PO .COMPLEX 09/24/21 10/08/21 History prednisone 5 mg tablet 5 mg PO QAM 09/24/21 10/08/21 History baclofen 10 mg tablet 20 mg PO QID 10/08/21 10/08/21 History celecoxib 100 mg capsule 100 mg PO BID 10/08/21 10/08/21 History gabapentin 100 mg capsule 100 mg PO HS 10/08/21 10/08/21 History Patient History Medical History Abdominal aortic aneurysm Chronic back pain Deep vein thrombosis Glaucoma [place] filter in place H/O prostate cancer History of bladder cancer History of ITP Malignant neoplasm of urinary bladder On anticoagulant therapy Osteoarthritis Overactive bladder Prostate cancer Pulmonary embolism Sleep apnea Transient ischemic attack (TIA) Surgical History H/O shoulder surgery History of bladder surgery History of laminectomy History of prostatectomy History of total hip arthroplasty Hx of cervical spine surgery Family History Mother Alzheimer disease Father Aortic aneurysm Other Family history non-contributory Social History Smoking Status: Current every day smoker Tobacco Type: Cigars Cigarettes Per Day: 1 PACK OF MINI-CIGARS PER MONTH; Second Hand Exposure: No; Hx Alcohol Use: No Hx Substance Use: No Preferred Language: [place]uran Communication Ability: Effective Vamp Liner Required: No Beliefs That Will Affect Care: None marital status: Current Living Situation: Spouse Other Information That Helps Us Care for You: No Feels Safe at Home: Yes Safety Concerns: Feels Safe At This Time Assistive Devices: Walker Assistive Devices Comment: shower chair Physical Exam Physical Exam: Patient is alert and oriented. We denies discussion today. Is neurologically intact. Results & Data ([facility]) Vital Signs (Past 12 Hours) Vital Signs Temp Pulse Pulse Resp BP BP Pulse Ox 10/11/21 08:14 36.7 C 97 H 27 H 132/75 98 10/11/21 07:53 98 H 10/11/21 05:08 36.9 C 88 17 130/91 18 L 10/10/21 23:41 36.7 C 110 H 22 130/91 95 O2 Del Method 10/11/21 08:14 Room Air 10/11/21 07:53 10/11/21 05:08 Room Air 10/10/21 23:41 Room Air
[2021-10-11] MEDS: ceFAZolin 2000MG 2,000 MG/15 ML SYR IV SCH ×2 (11:46→20:00)
--- NOTE | 2021-10-11 14:58 | Hospitalist Progress Note ---
Date of Service October 11, 2021 Assessment & Plan (1) E coli bacteremia: (2) Pyelonephritis: (3) Traumatic ecchymosis of face: Plan A 76-year-old male with past medical history significant for abdominal aortic aneurysm, hypertension, prostate cancer, bladder cancer, thrombocytopenia, osteoporosis, lumbar spinal stenosis, lumbar spinal fusion surgery, post- laminectomy syndrome, spinal cord stimulator, cervical spinal fusion surgery, GERD, chronic left foot drop, ambulatory dysfunction, status post IVC filter, history of pulmonary embolism, and chronic right arm tremor,presented to the ED on 10/08 with confusion at home which is now resolved. Also had fall at home on 10/05. Found to have E coli bacteremia. Imaging studies as below CT Lumbar spine 1. No acute fracture or subluxation identified. 2. 34 degrees levoscoliosis with advanced intervertebral disc space narrowing, spondylitic spurring and facet arthrosis. 3. Endplate irregularity at the L3-L4 and L4-L5 levels has progressively worsened from the 07/30/2019 study. These findings are favored to be degenerative. Discitis/osteomyelitis is considered much less likely. 4. Urothelial thickening is noted with bilateral perinephric inflammatory stranding. Findings should be correlated with urinalysis to exclude an ascending infection. 5. Saccular aneurysmal dilation of the infrarenal abdominal aorta, 3.9 cm without evidence of rupture CT head - No acute intracranial hemorrhage or skull fractures. Scalp swelling is seen in the left frontal region. E coli bacteremia, suspected pyelonephritis - blood clx 10/09 positive for pansensitive Ecoli in 2/4 bottles, repeat blood clx 10/09 negative. leucocytosis resolved. Fever resolved. - UA not suggestive of UTI but CT L spine with bilateral perinephric stranding, on exam Rt CVA tenderness suggestive of pyelonephritis. Not s/o discitis or OM on exam and as per ortho - Will switch ABx to Ancef D2. Afib with RVR- new onset. started on digoxin 10/10 and now rate controlled. Also on toprol. 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 Monitor on tele - Echo 10/11 with EF 65-0%, no regional WMA, no signficant valvular heart disease Fall with facial ecchymosis- No syncope. PT eval pending. Confusion resolved. now AAOx4. Infrarenal AAA- 3.9 cm incidental finding. Recommend OP follow up with PCP Chronic back pain, DDD- continue home dose of oxycodone, baclofen, gabapentin HTN- continue lisinopril, toprol. BP stable PMR- on prednisone low dose Prostate cancer- On zytiga and lupron shots H/o PE s/p IVC filter- on Xarelto DVT ppx- continue xarelto Dispo- Pending PT eval. On IV ABx for bacteremia. Needs PCP f/u for AAA. Admission and Anticipated Discharge Date Admission Date: October 09, 2021 Subjective He feels better. He is AAOx4. Denies any fever, chills, chest pain, SOB, N/V, palpitations, dizziness. Asymptomatic from Afib. States he has not got out of bed yet. Physical Exam Physical Exam: General: Sitting comfortably in bed, not in distress, on room air HEENT: Bilateral facial ecchymosis from fall, EOMI, YOSELYN, MMM Chest: Clear breath sounds bilaterally, no wheezes or crackles CVS: Irregular rate and rhythm, normal heart sounds, no murmur Abdomen: Soft, non tender, not distended, normal bowel sounds Rt CVA tenderness Neuro: Awake, alert, oriented, conversing well, non focal Extremities: No edema Results & Data Results & Data ([facility]) Vital Signs (Past 12 Hours) Vital Signs Temp Pulse Pulse Resp BP Pulse Ox O2 Del Method 10/11/21 12:03 37.0 C 79 21 117/65 97 Room Air 10/11/21 09:47 99 H 10/11/21 08:14 36.7 C 97 H 27 H 132/75 98 Room Air 10/11/21 07:53 98 H 10/11/21 05:08 36.9 C 88 17 130/91 18 L Room Air Laboratory Results Short CBC 10/11/21 Range/Units 06:21 WBC 7.18 (4.8-10.8) K/ul Hgb 11.7 L (14.0-18.0) g/dl Hct 36.4 L (40.1-51.0) % Plt Count 129 L (130-400) K/uL BMP 10/11/21 06:21 Sodium 135 L Potassium 4.6 D Chloride 110 H Carbon Dioxide 19 L BUN 28 H Creatinine 0.96 Glucose 97 Calcium 7.7 L Medications Administered Current Inpatient Medications Abiraterone Acetate (Abiraterone Acetate) 4 each PO DAILYBB [facility] Stop: 11/08/21 18:29 Last Admin: 10/11/21 07:47 Dose: 4 each Acetaminophen (Acetaminophen 325 Mg Tab) 650 mg PO Q4H PRN PRN Reason: Pain or Fever Stop: 11/08/21 01:46 Last Admin: 10/11/21 08:40 Dose: 650 mg Baclofen (Baclofen 20 Mg Tab) 20 mg PO QID [facility] Stop: 11/08/21 08:59 Last Admin: 10/11/21 13:03 Dose: 20 mg Digoxin (Digoxin 0.125 Mg Tab) 0.125 mg PO DAILY [facility] Stop: 11/10/21 08:59 Last Admin: 10/11/21 07:53 Dose: 0.125 mg Docusate Sodium (Docusate Sodium 100 Mg Cap) [facility] Stop: 11/08/21 08:59 Last Admin: 10/11/21 07:52 Dose: 100 mg Gabapentin (Gabapentin 100 Mg Cap) 100 mg PO HS [facility] Stop: 11/08/21 20:59 Last Admin: 10/10/21 21:21 Dose: 100 mg Cefazolin Sodium (Ancef 2000mg) 2,000 mg in 15 mls @ 3.75 mls/min IV Q8H [facility] Stop: 10/25/21 10:59 Last Admin: 10/11/21 11:46 Dose: 3.75 mls/min Labetalol HCl (Labetalol Hcl Iv 5 Mg/Ml 20ml) 10 mg IV Q4H PRN PRN Reason: Hypertension Stop: 11/08/21 01:46 Lisinopril (Lisinopril 10 Mg Tab) [facility] Stop: 11/08/21 08:59 Last Admin: 10/11/21 07:51 Dose: 10 mg Metoprolol Succinate (Metoprolol Succ 25mg Ext Rel Tab) [facility] Stop: 11/08/21 08:59 Last Admin: 10/11/21 07:53 Dose: 25 mg Multivitamins/Minerals (Calcium 600mg + Vit D 400 Iu Tab) 1 tab [facility] Stop: 11/08/21 08:59 Last Admin: 10/11/21 07:52 Dose: 1 tab Nitroglycerin (Nitroglycerin Sl 0.4 Mg/Tab Tab) 0.4 mg SL UD PRN PRN Reason: Chest Pain Stop: 11/08/21 01:46 Dorzolamdie-Timolol: Non-Formulary Patient's Own Med 1 each OP HS [facility] Stop: 11/09/21 20:59 Last Admin: 10/11/21 07:51 Dose: 2 drops Ondansetron HCl (Ondansetron Inj 2 Mg/Ml 2 Ml Vial) 4 mg IV Q6H PRN PRN Reason: Nausea Stop: 11/08/21 01:46 Oxycodone HCl (Oxycodone Hcl Ir 5 Mg Tab (Immediate Release)) 20 mg PO BID [facility] Stop: 10/23/21 08:59 Last Admin: 10/11/21 07:50 Dose: 20 mg Oxycodone HCl (Oxycodone Hcl Ir 5 Mg Tab (Immediate Release)) 10 mg PO DAILY@1200 [facility] Stop: 10/23/21 11:59 Last Admin: 10/11/21 11:46 Dose: 10 mg Pantoprazole Sodium (Pantoprazole 40 Mg Tab) 40 mg PO DAILY [facility] Stop: 11/08/21 08:59 Last Admin: 10/11/21 07:52 Dose: 40 mg Polyethylene Glycol (Polyethylene (Miralax) 17 Gm Pack) 17 gm PO DAILY PRN PRN Reason: Constipation Stop: 11/08/21 01:46 Potassium Chloride (Potassium Chloride Crtab 20 Meq Tabcr) 40 meq PO TID [facility] Stop: 11/08/21 13:59 Last Admin: 10/11/21 13:03 Dose: 40 meq Prednisone (Prednisone 5 Mg Tab) 5 mg PO QAM [facility] Stop: 11/08/21 08:59 Last Admin: 10/11/21 07:52 Dose: 5 mg Rivaroxaban (Rivaroxaban 20 Mg Tab) 20 mg PO QAM [facility] Stop: 11/08/21 08:59 Last Admin: 10/11/21 08:38 Dose: 20 mg Travoprost (Travoprost Z 0.004% Oph Soln 2.5 Ml Btl) 1 drops OPB HS [facility] Stop: 11/08/21 20:59 Last Admin: 10/10/21 21:22 Dose: 1 drops
[2021-10-11] MEDS: GABAPENTIN 100 MG CAP PO SCH (20:08)
[2021-10-11 22:17] LABS: Appearance Urine Clear (Clear); Bacteria Urine Automated Negative (Negative); Bilirubin Urine Negative (Negative); Blood Urine 2+ (Negative); Cast Urine Automated 0 /lpf (0-5); Color Urine Yellow; Epithelial Cell Urine Auto 0-5 /lpf (0-5); Glucose Urine UA Negative (Negative); Ketones Urine Negative (Negative); Leukocyte Esterase Urine Negative (Negative); Nitrite Urine Negative (Negative); Protein Urine Negative (Negative); Urobilinogen Urine Negative (Negative)
[2021-10-12] MEDS: MELATONIN 3 MG TAB PO PRN ×2 (00:15→19:52)
[2021-10-12] MEDS: ACETAMINOPHEN 325 MG TAB PO PRN ×3 (00:15→23:15)
[2021-10-12] MEDS: TRAVOPROST Z 0.004% OPH SOLN 2.5 ML BTL OPB SCH ×2 (00:15→23:15)
[2021-10-12] MEDS: ceFAZolin 2000MG 2,000 MG/15 ML SYR IV SCH ×2 (02:44→11:56)
[2021-10-12 04:22] LABS: Hematocrit (blood only) 36.9 % (40.1-51.0); Hemoglobin 11.7 g/dl (14.0-18.0); Mean Corpuscular Hemoglobin 26.6 pg (25.0-34.0); Mean Corpuscular Hgb Conc 31.7 g/dL (32.0-36.0); Mean Corpuscular Volume 83.9 fL (80.0-100.0); Mean Platelet Volume 10.3 fL (9.4-12.4); Platelet Count 157 K/uL (130-400); RDW Coefficient of Variation 15.2 % (11.5-14.5); RDW Standard Deviation 46.5 fL (36.4-46.3); White Blood Count 6.33 K/ul (4.8-10.8)
[2021-10-12 04:52] LABS: BUN Creatinine Ratio 23.1 (10-20); Calcium 8.3 mg/dl (8.5-10.1); Creatinine Clr Calc Pharmacy 52.7 ml/min; Est GFR (African American) 75.8 ml/min; Est GFR (Non-African American) 65.4 ml/min; Phosphorus 1.7 mg/dl (2.5-4.9); Potassium 5.4 mmol/L (3.5-5.1)
[2021-10-12] MEDS: ABIRATERONE ACETATE PO SCH (06:13)
[2021-10-12] MEDS: predniSONE 5 MG TAB PO SCH (06:14)
[2021-10-12] MEDS: lisinopril 10 MG TAB PO SCH (08:01)
[2021-10-12] MEDS: BACLOFEN 20 MG TAB PO SCH ×4 (08:01→19:54)
[2021-10-12] MEDS: PANTOprazole 40 MG TAB PO SCH (08:02)
[2021-10-12] MEDS: DOCUSATE SODIUM 100 MG CAP PO SCH (08:02)
[2021-10-12] MEDS: METOPROLOL SUCC 25MG EXT REL TAB PO SCH ×2 (08:02→19:53)
[2021-10-12] MEDS: DIGOXIN 0.125 MG TAB PO SCH (08:02)
[2021-10-12] MEDS: CALCIUM 600MG + VIT D 400 IU TAB PO SCH (08:03)
[2021-10-12] MEDS: RIVAROXABAN 20 MG TAB PO SCH (08:07)
[2021-10-12] MEDS: oxyCODONE HCL IR 5 MG TAB (IMMEDIATE RELEASE) PO SCH ×3 (08:11→19:54)
[2021-10-12] MEDS: POT PHOSPHATE MONOBASIC W/ SOD TAB PO SCH ×4 (08:11→19:54)
[2021-10-12] MEDS ORDERED: PATIROMER CALCIUM SORBITEX 8.4 GM PACK PO SCH (11:00)
[2021-10-12] MEDS ORDERED: OPTIRAY 300 500mL IV ONE (16:27)
--- NOTE | 2021-10-12 16:29 | Hospitalist Progress Note ---
Date of Service October 12, 2021 Assessment & Plan (1) E coli bacteremia: (2) Traumatic ecchymosis of face: Plan A 76-year-old male with past medical history significant for abdominal aortic aneurysm, hypertension, prostate cancer, bladder cancer, thrombocytopenia, osteoporosis, lumbar spinal stenosis, lumbar spinal fusion surgery, post- laminectomy syndrome, spinal cord stimulator, cervical spinal fusion surgery, GERD, chronic left foot drop, ambulatory dysfunction, status post IVC filter, history of pulmonary embolism, and chronic right arm tremor,presented to the ED on 10/08 with confusion at home which is now resolved. Also had fall at home on 10/05. Found to have E coli bacteremia. Imaging studies as below CT Lumbar spine 1. No acute fracture or subluxation identified. 2. 34 degrees levoscoliosis with advanced intervertebral disc space narrowing, spondylitic spurring and facet arthrosis. 3. Endplate irregularity at the L3-L4 and L4-L5 levels has progressively worsened from the 07/30/2019 study. These findings are favored to be degenerative. Discitis/osteomyelitis is considered much less likely. 4. Urothelial thickening is noted with bilateral perinephric inflammatory stranding. Findings should be correlated with urinalysis to exclude an ascending infection. 5. Saccular aneurysmal dilation of the infrarenal abdominal aorta, 3.9 cm without evidence of rupture CT head - No acute intracranial hemorrhage or skull fractures. Scalp swelling is seen in the left frontal region. E coli bacteremia, unclear source - blood clx / positive for pansensitive Ecoli in 2/4 bottles, repeat blood clx /19 negative. leucocytosis resolved. Fever resolved. - UA x2 not suggestive of UTI but CT L spine with bilateral perinephric stranding, but no CVA tenderness on exam (note from yesterday erroneously mentioned CVA tenderness which he does not have) to suggest pyelonephritis. Not s/o discitis or OM on exam and as per ortho - Discussed with ID Dr Vaughn today- he recommended getting CT A/P to r/o intraabd source- if negative, consider OP colonoscopy. He also recommended iv ceftriaxone given unknown source rather than ancef. Can be discharged on cipro at time of discharge. - Will switch ABx to rocephin D2/14 (initially was on rocephin->Ancef- >rocephin). Plan for cipro at discharge. Afib- new onset. started on digoxin 10/10 but HR labile. Also on toprol and will increase to 25 bid. 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 Monitor on tele. Consult cardio for further recommendations. - Echo 10/11 with EF 65-0%, no regional WMA, no signficant valvular heart disease. Fall with facial ecchymosis- No syncope. PT recommended rehab but he is declini ng. Confusion resolved. now AAOx4. Infrarenal AAA- 3.9 cm incidental finding. Recommend OP follow up with PCP Chronic back pain, DDD- continue home dose of oxycodone, baclofen, gabapentin HTN- continue lisinopril, toprol. BP stable PMR- on prednisone low dose Prostate cancer- On zytiga and lupron shots H/o PE s/p IVC filter- on Xarelto Hyperkalemia- will stop potassium supplementation and give a dose of veltassa. Hypophosphatemia- will replete, recheck in am DVT ppx- continue xarelto Dispo- Pending CT A/P for evaluation of source of bacteremia. On IV ABx for bacteremia. Needs home PT at discharge as he declined to go to rehab. Needs PCP f/u for AAA. Updated at bedside Admission and Anticipated Discharge Date Admission Date: October 09, 2021 Subjective He feels fine. Asking when he can go home. Has chronic back pain and spasm which is controlled with his home meds. He does not want to go to rehab but would like to return home. Physical Exam Physical Exam: General: Sitting comfortably in bed, not in distress, on room air HEENT: Bilateral facial ecchymosis from fall, EOMI, YOSELYN, MMM Chest: Clear breath sounds bilaterally, no wheezes or crackles CVS: Irregular rate and rhythm, normal heart sounds, no murmur Abdomen: Soft, non tender, not distended, normal bowel sounds Neuro: Awake, alert, oriented, conversing well, non focal Extremities: No edema Results & Data Results & Data ([facility]) Vital Signs (Past 12 Hours) Vital Signs Temp Pulse Pulse Resp BP BP Pulse Ox 10/12/21 15:49 36.8 C 79 18 118/85 96 10/12/21 11:35 109 H 10/12/21 10:48 37.1 C 86 18 140/82 93 10/12/21 08:02 140 H 10/12/21 07:40 36.6 C 93 H 18 140/78 97 O2 Del Method 10/12/21 15:49 Room Air 10/12/21 11:35 10/12/21 10:48 Room Air 10/12/21 08:02 10/12/21 07:40 Room Air Laboratory Results Short CBC 10/12/21 Range/Units 04:07 WBC 6.33 (4.8-10.8) K/ul Hgb 11.7 L (14.0-18.0) g/dl Hct 36.9 L (40.1-51.0) % Plt Count 157 (130-400) K/uL BMP 10/12/21 04:07 Sodium 136 Potassium 5.4 H Chloride 109 H Carbon Dioxide 23 BUN 25 H Creatinine 1.08 Glucose 94 Calcium 8.3 L Urine 10/11/21 Range/Units Unknown Urine Color Yellow Urine Appearance Clear (Clear) Urine pH 6.0 (4.5-7.5) Ur Specific [place] 1.010 (1.000-1.030) Urine Protein Negative (Negative) Urine Glucose (UA) Negative (Negative) Medications Administered Current Inpatient Medications Abiraterone Acetate (Abiraterone Acetate) 4 each PO DAILYBB [facility] Stop: 11/08/21 18:29 Last Admin: 10/12/21 06:13 Dose: 4 each Acetaminophen (Acetaminophen 325 Mg Tab) 650 mg PO Q4H PRN PRN Reason: Pain or Fever Stop: 11/08/21 01:46 Last Admin: 10/12/21 15:33 Dose: 650 mg Baclofen (Baclofen 20 Mg Tab) 20 mg PO QID [facility] Stop: 11/08/21 08:59 Last Admin: 10/12/21 13:03 Dose: 20 mg Digoxin (Digoxin 0.125 Mg Tab) 0.125 mg PO DAILY [facility] Stop: 11/10/21 08:59 Last Admin: 10/12/21 08:02 Dose: 0.125 mg Docusate Sodium (Docusate Sodium 100 Mg Cap) 100 mg PO QAM [facility] Stop: 11/08/21 08:59 Last Admin: 10/12/21 08:02 Dose: 100 mg Gabapentin (Gabapentin 100 Mg Cap) 100 mg PO HS [facility] Stop: 11/08/21 20:59 Last Admin: 10/11/21 20:08 Dose: 100 mg Ceftriaxone Sodium 2,000 mg/ (Dextrose) 70 mls @ 100 mls/hr IV DAILY [facility]; Protocol Stop: 10/26/21 14:59 Ioversol (Optiray 300 500ml) 93 ml IV ONCE ONE Stop: 10/12/21 16:28 Last Admin: 10/12/21 16:28 Dose: 93 ml Labetalol HCl (Labetalol Hcl Iv 5 Mg/Ml 20ml) 10 mg IV Q4H PRN PRN Reason: Hypertension Stop: 11/08/21 01:46 Lisinopril (Lisinopril 10 Mg Tab) 10 mg PO QAM [facility] Stop: 11/08/21 08:59 Last Admin: 10/12/21 08:01 Dose: 10 mg Melatonin (Melatonin 3 Mg Tab) 3 mg PO HS PRN PRN Reason: Insomnia Stop: 11/10/21 23:23 Last Admin: 10/12/21 00:15 Dose: 3 mg Metoprolol Succinate (Metoprolol Succ 25mg Ext Rel Tab) 25 mg PO BID [facility] Stop: 11/11/21 20:59 Multivitamins/Minerals (Calcium 600mg + Vit D 400 Iu Tab) 1 tab PO DAILYBB [facility] Stop: 11/08/21 08:59 Last Admin: 10/12/21 08:03 Dose: 1 tab Nitroglycerin (Nitroglycerin Sl 0.4 Mg/Tab Tab) 0.4 mg SL UD PRN PRN Reason: Chest Pain Stop: 11/08/21 01:46 Dorzolamdie-Timolol: Non-Formulary Patient's Own Med 1 each OP HS [facility] Stop: 11/09/21 20:59 Last Admin: 10/11/21 20:10 Dose: 2 drops Ondansetron HCl (Ondansetron Inj 2 Mg/Ml 2 Ml Vial) 4 mg IV Q6H PRN PRN Reason: Nausea Stop: 11/08/21 01:46 Oxycodone HCl (Oxycodone Hcl Ir 5 Mg Tab (Immediate Release)) 20 mg PO BID [facility] Stop: 10/23/21 08:59 Last Admin: 10/12/21 08:11 Dose: 20 mg Oxycodone HCl (Oxycodone Hcl Ir 5 Mg Tab (Immediate Release)) 10 mg PO DAILY@1200 [facility] Stop: 10/23/21 11:59 Last Admin: 10/12/21 11:56 Dose: 10 mg Pantoprazole Sodium (Pantoprazole 40 Mg Tab) 40 mg PO DAILY [facility] Stop: 11/08/21 08:59 Last Admin: 10/12/21 08:02 Dose: 40 mg Patiromer (Patiromer Calcium Sorbitex 8.4 Gm Pack) 8.4 gm PO DAILY@1100 [facility] Stop: 11/11/21 10:59 Last Admin: 10/12/21 11:57 Dose: 8.4 gm Polyethylene Glycol (Polyethylene (Miralax) 17 Gm Pack) 17 gm PO DAILY PRN PRN Reason: Constipation Stop: 11/08/21 01:46 Potassium Phosphate (Pot Phosphate Monobasic W/ Sod Tab) 1 tab PO QID [facility] Stop: 11/11/21 08:59 Last Admin: 10/12/21 13:03 Dose: 1 tab Prednisone (Prednisone 5 Mg Tab) 5 mg PO QAM [facility] Stop: 11/08/21 08:59 Last Admin: 10/12/21 06:14 Dose: 5 mg Rivaroxaban (Rivaroxaban 20 Mg Tab) 20 mg PO QAM [facility] Stop: 11/08/21 08:59 Last Admin: 10/12/21 08:07 Dose: 20 mg Travoprost (Travoprost Z 0.004% Oph Soln 2.5 Ml Btl) 1 drops OPB HS [facility] Stop: 11/08/21 20:59 Last Admin: 10/12/21 00:15 Dose: 1 drops
[2021-10-12] MEDS: cefTRIAXone SODIUM 2,000 MG in DEXTROSE 5% 50 ML IV SCH (16:47)
--- NOTE | 2021-10-12 17:30 | CT Scan Report ---
ABDOMEN AND PELVIS CT WITH IV CONTRAST CT DOSE: 494.55 mGy.cm HISTORY: Acute generalized abdominal pain with bacteremia E coli bacteremia- look for intraabd sourc e TECHNIQUE: Multiaxial CT images of the abdomen and pelvis were performed following the IV administrat ion of 93 cc of Optiray, A dose lowering technique was utilized adhering to the principles of ALARA. COMPARISON STUDY: CT lumbar spine 10/09/2021, CT abdomen and pelvis 08/11/2016 FINDINGS: Cardiomegaly with coronary artery calcifications. Mild right hemidiaphragmatic elevation wi th subsegmental bibasilar atelectasis. No pneumatosis or pneumoperitoneum. Unremarkable spleen, pancr eas and adrenal glands. There is mild intrahepatic and extrahepatic biliary ductal dilation which is similar to the prior exam. Distended gallbladder without evidence of acute cholecystitis. Probable he patic cyst on image 16 measures 2.3 cm. Additional probable subcentimeter cyst within the right hepat ic lobe on image 27. Patent portal vein. Cysts within the kidneys measure up to 3.7 cm and the left approximately 2.9 cm on the right. There i s a 3.5 cm area of decreased heterogeneous enhancement within the superior pole right kidney on image 114 series 3 with surrounding perinephric inflammatory stranding. 3 mm nonobstructing calculus of th e inferior pole right kidney. No ureteral calculi or hydronephrosis identified. Partial distention of the urinary bladder with mild wall thickening. Pelvic structures are suboptimally visualized seconda ry to streak artifact from the bilateral hip total joint arthroplasties. The prostate appears to be s urgically absent. Atherosclerosis of the aorta with tortuosity. Saccular aneurysm arising from the le ft aspect of the infrarenal abdominal aorta on image 187 measures 2.9 x 2.1 cm. On the 2017 compariso n study this measured approximately 2.4 x 2.0 cm. No evidence of aneurysm rupture. Small lipoma of the duodenum near the ampulla redemonstrated. Trace nonspecific free pelvic fluid. Ex tensive colonic diverticulosis. Moderate fecal retention. The visualized appendix is noninflamed. Deg enerative changes of the spine and pelvis. Lumbar levoscoliosis. A neural stimulator device is presen t with distal tip of the leads extending superiorly outside the [id number]. The imaged portions of the leads appear intact. IMPRESSION: 1. No bowel obstruction or bowel wall thickening. 2. Heterogeneously decreased enhancement involving the superior pole right kidney with adjacent perin ephric inflammatory stranding is suggestive of acute pyelonephritis. A one month follow-up renal ultr asound is recommended to exclude the less likely possibility of an underlying lesion. 3. Nonobstructing right renal calculus. 4. Unchanged intrahepatic and extrahepatic biliary ductal dilation. 5. 2.9 x 2.1 cm saccular aneurysm of the infrarenal abdominal aorta has increased in size from the comparison. No evidence of aneurysm rupture. 6. Additional findings as above. ACT 112: Negative or not required by law. The above report was generated using voice recognition software. It may contain grammatical, syntax o r spelling errors. Electronically signed by: Servando Hammond M.D. 10/12/2021 5:27 PM
[2021-10-12] MEDS: GABAPENTIN 100 MG CAP PO SCH (19:53)
[2021-10-12] MEDS: DORZOLAMIDE OP SCH (19:56)
[2021-10-12] MEDS: TIMOLOL OP SCH (19:56)
[2021-10-13] MEDS ORDERED: CYCLOBENZAPRINE HCL 10 MG TAB PO STA (01:52)
[2021-10-13] MEDS: ABIRATERONE ACETATE PO SCH (06:11)
[2021-10-13] MEDS: CALCIUM 600MG + VIT D 400 IU TAB PO SCH (06:13)
[2021-10-13] MEDS: predniSONE 5 MG TAB PO SCH (06:13)
[2021-10-13 07:04] LABS: Hematocrit (blood only) 37.7 % (40.1-51.0); Hemoglobin 12.2 g/dl (14.0-18.0); Mean Corpuscular Hemoglobin 26.6 pg (25.0-34.0); Mean Corpuscular Hgb Conc 32.4 g/dL (32.0-36.0); Mean Corpuscular Volume 82.1 fL (80.0-100.0); Mean Platelet Volume 9.3 fL (9.4-12.4); Platelet Count 188 K/uL (130-400); Red Blood Count 4.59 M/uL (4.63-6.08); White Blood Count 6.56 K/ul (4.8-10.8)
[2021-10-13 07:30] LABS: BUN Creatinine Ratio 19.4 (10-20); Calcium 8.6 mg/dl (8.5-10.1); Creatinine Clr Calc Pharmacy 55.3 ml/min; Est GFR (African American) 80.3 ml/min; Est GFR (Non-African American) 69.3 ml/min; Phosphorus 2.8 mg/dl (2.5-4.9); Potassium 4.3 mmol/L (3.5-5.1)
[2021-10-13] MEDS: BACLOFEN 20 MG TAB PO SCH ×4 (08:13→23:25)
[2021-10-13] MEDS: METOPROLOL SUCC 25MG EXT REL TAB PO SCH ×2 (08:13→20:00)
[2021-10-13] MEDS: lisinopril 10 MG TAB PO SCH (08:13)
[2021-10-13] MEDS: RIVAROXABAN 20 MG TAB PO SCH (08:14)
[2021-10-13] MEDS: DOCUSATE SODIUM 100 MG CAP PO SCH (08:14)
[2021-10-13] MEDS: DIGOXIN 0.125 MG TAB PO SCH (08:14)
[2021-10-13] MEDS: PANTOprazole 40 MG TAB PO SCH (08:14)
[2021-10-13] MEDS: oxyCODONE HCL IR 5 MG TAB (IMMEDIATE RELEASE) PO SCH ×4 (08:16→20:07)
[2021-10-13] MEDS: cefTRIAXone SODIUM 2,000 MG in DEXTROSE 5% 50 ML IV SCH (08:17)
--- NOTE | 2021-10-13 08:43 | Cardiology Consultation ---
Date of Consultation October 13, 2021 Assessment & Plan (1) Paroxysmal atrial fibrillation: (2) E coli bacteremia: (3) Abdominal aortic aneurysm: (4) Hypertension: Plan 76-year-old male initially presented with transient confusion and a fall at home. Found to have E. coli bacteremia. Patient went into atrial fibrillation on 10/10 with variable rates. Patient mildly symptomatic noting tachycardic palpitations at times. Heart rate in the 70s to 100s with rest and increased to 100-1 20s with minimal exertion/talking. He is already anticoagulated with Xarelto due to his history of PE. Will continue for stroke prophylaxis #1 increase metoprolol succinate to 37.5 mg twice daily #2 okay to continue digoxin as ordered. #3 given his history of difficulty with ambulation and recent fall he is certainly at high bleed risk, recommended outpatient rehab placement at discharge improve ambulation steadiness. For now okay to continue Xarelto as ordered. #4 antibiotics per primary team #5 blood pressure well controlled, continue lisinopril as ordered. #6 known history of abdominal aortic aneurysm, infrarenal AAA measuring 2.9 cm per abdominal pelvis CT 10/12. Recommend outpatient follow-up with vascular. Case discussed with Dr. Nazario, will follow. Supervising Physician Co-Signing Physician Notes Patient was seen and examined, chart, medications and telemetry reviewed. Patient with recent complex course including fall with head injury, admission with E. coli bacteremia Patient notes having stopped chronic anticoagulation for 2 to 3 days prior to admission after head injury. Was started on gabapentin for sleep and headache On admission patient in sinus rhythm but lapsed into atrial fibrillation with variable rate response. He has been on anticoagulation since admission with Xarelto Impression: New onset atrial fibrillation with variable rate response. Recent lapse in anticoagulation. Plan: We will titrate metoprolol succinate to 37.5 mg twice per day for further heart rate control. Suspect atrial fibrillation may remain persistent but could consider cardioversion in future. Baseline rhythm prior to atrial fibrillation with sinus bradycardia. We will avoid antiarrhythmic therapy for time being No bradycardia arrhythmias observed in hospital. Patient currently asymptomatic from rhythm standpoint History of Present Illness Reason for Consultation: New onset AFIB Requesting Physician: Venkat cabatialist Attending Physician: Luis Carlos Joiner MD History of Present Illness 76 year old male. Does not follow with outpatient cardiology. Past medical history as listed below. Initially presented to ED with transient confusion and a fall at home. Found to have E. coli bacteremia. CT of the head without acute abnormality. Patient went into atrial fibrillation on 10/10. Metoprolol succinate increased to 25 mg twice daily and digoxin was started. Given his history of DVT/PE anticoagulated on Xarelto. Echocardiogram 10/11 showed: EF 65-70%, no regional WMA, borderline LA enlargement, no significant valvular heart disease, mild aortic sclerosis- no stenosis. Patient was hyperkalemic and supplementation was stopped, given 1 dose of Veltas sa ( K 4.3 this am) Of note, he was found to have a 2.9 x 2.1 cm saccular aneurysm of the infrarenal abdominal aorta, without rupture. Recent measured 2.4 x 2.0 cm in 2017. Tele: AFIB 70s-low 100s over night, this am HR up into the 110-120s with talking. Upon entrance into the room patient sitting up in bed eating breakfast. Notes mild tachy palpitations. No chest pain or shortness of breath. Notes unsteadiness with ambulation. No dizziness or syncope. Denies any lower extremity edema. PMH: Abdominal aortic aneurysm, Infrarenal AAA- 2.9 cm per abd/pelvis CT 10/12/2021 ([facility]) Hx of DVT/PE s/p IVCD filter (s/p leg injury 2014 per chart review) HTN PVD GERD Gastroparesis Hx of prostate CA, On Zytiga and Lupron shots Hx of bladder CA Hx of anemia and thrombocytopenia- on prednisone for ITP Chronic back pain, DDD Chronic lymphedema, left leg with foot drop ? TIA Allergies Allergy/AdvReac Type Severity Reaction Status Date / Time adalimumab Allergy Severe GI SYMPTOMS Verified 10/08/21 16:58 mirabegron Allergy Intermediate NEUROLOGICAL Verified 10/08/21 16:58 SYMPTOMS/STOMACH PAINS methotrexate Allergy Unknown Blood Verified 10/08/21 16:58 platelets drop. naproxen Allergy Unknown dilusional Verified 10/08/21 16:58 Home Medications Medication Instructions Recorded Confirmed Type abiraterone 250 mg tablet (Zytiga) 1,000 mg PO QAM 01/26/18 10/08/21 History calcium carbonate 500 mg-vitamin 1 tab PO QAM 01/26/18 10/08/21 History D3 10 mcg (400 unit) tablet (Calcium 500 With D) docusate sodium 50 mg capsule 50 mg PO QAM 01/26/18 10/08/21 History leuprolide acetate (6 month) 45 mg 1 dose IM UD 01/26/18 10/08/21 History intramuscular syringe kit (Lupron Depot) pregabalin 300 mg capsule (Lyrica) 300 mg PO BID 01/26/18 10/08/21 History timolol maleate (PF) 0.5 % eye 1 drp OPB BID 01/26/18 10/08/21 History drops in a dropperette travoprost 0.004 % eye drops 1 drp OPB HS 01/26/18 10/08/21 History (Travatan Z) rivaroxaban 20 mg tablet (Xarelto) 20 mg PO QAM #0 tabs 02/17/18 10/08/21 Rx oxycodone 10 mg tablet 10 mg PO .COMPLEX 09/24/21 10/08/21 History prednisone 5 mg tablet 5 mg PO QAM 09/24/21 10/08/21 History baclofen 10 mg tablet 20 mg PO QID 10/08/21 10/08/21 History celecoxib 100 mg capsule 100 mg PO BID 10/08/21 10/08/21 History gabapentin 100 mg capsule 100 mg PO HS 10/08/21 10/08/21 History Patient History Medical History Abdominal aortic aneurysm Chronic back pain Deep vein thrombosis Glaucoma [place] filter in place H/O prostate cancer History of bladder cancer History of ITP Malignant neoplasm of urinary bladder On anticoagulant therapy Osteoarthritis Overactive bladder Prostate cancer Pulmonary embolism Sleep apnea Transient ischemic attack (TIA) Surgical History H/O shoulder surgery History of bladder surgery History of laminectomy History of prostatectomy History of total hip arthroplasty Hx of cervical spine surgery Family History Mother Alzheimer disease Father Aortic aneurysm Other Family history non-contributory Social History Smoking Status: Current every day smoker Tobacco Type: Cigars Cigarettes Per Day: 1 PACK OF MINI-CIGARS PER MONTH; Second Hand Exposure: No; Hx Alcohol Use: No Hx Substance Use: No Preferred Language: Brazilian Communication Ability: Effective Business Control Specialist Required: No Beliefs That Will Affect Care: None marital status: Current Living Situation: Spouse Other Information That Helps Us Care for You: No Feels Safe at Home: Yes Safety Concerns: Feels Safe At This Time Assistive Devices: Walker Assistive Devices Comment: shower chair Review of Systems Review of Systems: All systems reviewed & are unremarkable except as noted in HPI & below Physical Exam Constitutional: WD/WN, vitals as above Eyes: PERRL ENMT: Facial bruising Respiratory: normal respiratory effort, lungs clear to auscultation Cardiovascular: Rate/Rhythm: + tachycardic and + irregularly irregular Heart Sounds: normal S1 and normal S2; no murmur Vessels: no JVD Extremi ties: + edema (LLE chronic lymphedema. ) Gastrointestinal (Abdomen): normal bowel sounds, soft, nontender, no hepatosplenomegaly Skin: Significant Bruising on face Psychiatric: A+Ox3, euthymic affect Results & Data ([facility]) Vital Signs (Past 12 Hours) Vital Signs Temp Pulse Pulse Resp BP BP Pulse Ox 10/13/21 08:00 36.7 C 83 18 170/69 H 95 10/13/21 08:14 79 10/13/21 03:00 37.0 C 72 22 168/95 H 98 10/12/21 22:17 69 10/12/21 22:49 37.6 C H 84 20 116/86 97 O2 Del Method 10/13/21 08:00 10/13/21 08:14 10/13/21 03:00 10/12/21 22:17 10/12/21 22:49 Room Air Laboratory Results CBC 10/13/21 Range/Units 06:43 WBC 6.56 (4.8-10.8) K/ul RBC 4.59 L (4.63-6.08) M/uL Hgb 12.2 L (14.0-18.0) g/dl Hct 37.7 L (40.1-51.0) % Plt Count 188 (130-400) K/uL Comprehensive Metabolic Panel 10/13/21 Range/Units 06:43 Sodium 140 (136-145) mmol/L Potassium 4.3 D (3.5-5.1) mmol/L Chloride 110 H (98-107) mmol/L Carbon Dioxide 26 (21-32) mmol/L BUN 20 (6-23) mg/dl Creatinine 1.03 (0.6-1.4) mg/dl Glucose 94 (70-99(Fasting)) mg/dl Calcium 8.6 (8.5-10.1) mg/dl Intake and Output 10/12/21 10/13/21 10/13/21 22:59 06:59 14:59 Intake Total 370 / 1040 280 / 1040 Output Total 800 / 3775 1575 / 3775 Balance -430 / -2735 -1295 / -2735 Intake: IV 70 / 70 cefTRIAXone SODIUM 2,000 mg In 70 / 70 Dextrose 5% 50 ml @ 100 mls/hr IV DAILY [facility] Rx#:[id number] Oral 300 / 970 280 / 970 Output: Urine Amount (Catheter) 800 / 3775 1575 / 3775 External 800 / 3775 1575 / 3775 Other: Weight 73.6 kg 72.1 kg Weight Measurement Method Built in [facility]
[2021-10-13] MEDS ORDERED: METOPROLOL SUCC 25MG EXT REL TAB PO ONE (09:45)
--- NOTE | 2021-10-13 11:49 | Electrocardiogram Report ---
Test Reason : Blood Pressure : / mmHG Vent. Rate : 096 BPM Atrial Rate : 122 BPM P-R Int : 000 ms QRS Dur : 080 ms QT Int : 342 ms P-R-T Axes : 000 208 129 degrees QTc Int : 432 ms Atrial fibrillation Right superior axis deviation Abnormal ECG When compared with ECG of 10-OCT-2021 13:24, QRS axis Shifted left Confirmed by Darrius Montes ([id number]) on 10/13/2021 11:49:30 AM Referred By: REFERRED SELF Confirmed By:Darrius Montes
--- NOTE | 2021-10-13 16:41 | Hospitalist Progress Note ---
Date of Service October 13, 2021 Assessment & Plan (1) E coli bacteremia: (2) Traumatic ecchymosis of face: Plan A 76-year-old male with past medical history significant for abdominal aortic aneurysm, hypertension, prostate cancer, bladder cancer, thrombocytopenia, osteoporosis, lumbar spinal stenosis, lumbar spinal fusion surgery, post- laminectomy syndrome, spinal cord stimulator, cervical spinal fusion surgery, GERD, chronic left foot drop, ambulatory dysfunction, status post IVC filter, history of pulmonary embolism, and chronic right arm tremor,presented to the ED on 10/08 with confusion at home which is now resolved. Also had fall at home on 10/05. Found to have E coli bacteremia. Imaging studies as below CT Lumbar spine 1. No acute fracture or subluxation identified. 2. 34 degrees levoscoliosis with advanced intervertebral disc space narrowing, spondylitic spurring and facet arthrosis. 3. Endplate irregularity at the L3-L4 and L4-L5 levels has progressively worsened from the 07/30/2019 study. These findings are favored to be degenerative. Discitis/osteomyelitis is considered much less likely. 4. Urothelial thickening is noted with bilateral perinephric inflammatory stranding. Findings should be correlated with urinalysis to exclude an ascending infection. 5. Saccular aneurysmal dilation of the infrarenal abdominal aorta, 3.9 cm without evidence of rupture CT head - No acute intracranial hemorrhage or skull fractures. Scalp swelling is seen in the left frontal region. E coli bacteremia, unclear source possibly right pyelonephritis although UA unremarkable - blood clx / positive for pansensitive Ecoli in 2/4 bottles, repeat blood clx /19 negative. leucocytosis resolved. Fever resolved. - UA x2 not suggestive of UTI but CT L spine with bilateral perinephric stranding, but no CVA tenderness on exam (note from yesterday erroneously mentioned CVA tenderness which he does not have) to suggest pyelonephritis. Not s/o discitis or OM on exam and as per ortho - Discussed with ID Dr Vaughn 10/12- he recommended getting CT A/P which showed right sided pyelonephritis. He also recommended iv ceftriaxone. Can be discharged on cipro at time of discharge. - Continue rocephin D3/14 (initially was on rocephin->Ancef->rocephin). Plan for cipro at discharge. Afib- new onset. started on digoxin 10/10 but HR labile. Also on toprol->now increased to 37.5 bid per cardiology. 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 Monitor on tele. - Echo 10/11 with EF 65-0%, no regional WMA, no signficant valvular heart disease. Fall with facial ecchymosis- No syncope. PT recommended rehab but he is declining. Confusion resolved. now AAOx4. Infrarenal AAA- 3.9 cm incidental finding. Recommend OP follow up with PCP Chronic back pain, DDD- continue home dose of oxycodone, baclofen, gabapentin HTN- continue lisinopril, toprol. BP stable PMR- on prednisone low dose Prostate cancer- On zytiga and lupron shots H/o PE s/p IVC filter- on Xarelto Hyperkalemia- resolved, recheck in am Hypophosphatemia- resolved. DVT ppx- continue xarelto Dispo- Anticipate discharge in 24-48 hrs. adjusting meds for his Afib with RVR. On IV ABx. Formal ID eval pending. Needs PCP f/u for AAA. Admission and Anticipated Discharge Date Admission Date: October 09, 2021 Subjective Feels fine. Denies any new issues. His HR jumps with minimal activities, overall rate controlled. Denies any fever, chills, flank pain, N/V, dysuria, CP, dizziness. Physical Exam Physical Exam: General: Sitting comfortably in bed, not in distress, on room air HEENT: Bilateral facial ecchymosis from fall, EOMI, OYSELYN, MMM Chest: Clear breath sounds bilaterally, no wheezes or crackles CVS: Irregular rate and rhythm, normal heart sounds, no murmur Abdomen: Soft, non tender, not distended, normal bowel sounds Neuro: Awake, alert, oriented, conversing well, non focal Extremities: No edema Results & Data Results & Data ([facility]) Vital Signs (Past 12 Hours) Vital Signs Temp Pulse Pulse Resp BP BP BP 10/13/21 13:02 36.8 C 101 H 16 104/62 10/13/21 09:00 115 H 18 96/69 L 105/80 110/66 10/13/21 08:00 10/13/21 08:00 36.7 C 83 18 170/69 H 10/13/21 08:14 79 Pulse Ox O2 Del Method 10/13/21 13:02 96 10/13/21 09:00 98 10/13/21 08:00 Room Air 10/13/21 08:00 95 10/13/21 08:14 Laboratory Results Short CBC 10/13/21 Range/Units 06:43 WBC 6.56 (4.8-10.8) K/ul Hgb 12.2 L (14.0-18.0) g/dl Hct 37.7 L (40.1-51.0) % Plt Count 188 (130-400) K/uL BMP 10/13/21 06:43 Sodium 140 Potassium 4.3 D Chloride 110 H Carbon Dioxide 26 BUN 20 Creatinine 1.03 Glucose 94 Calcium 8.6 Medications Administered Current Inpatient Medications Abiraterone Acetate (Abiraterone Acetate) 4 each PO DAILYBB [facility] Stop: 11/08/21 18:29 Last Admin: 10/13/21 06:11 Dose: 4 each Acetaminophen (Acetaminophen 325 Mg Tab) 650 mg PO Q4H PRN PRN Reason: Pain or Fever Stop: 11/08/21 01:46 Last Admin: 10/12/21 23:15 Dose: 650 mg Baclofen (Baclofen 20 Mg Tab) 20 mg PO QID [facility] Stop: 11/08/21 08:59 Last Admin: 10/13/21 16:21 Dose: 20 mg Digoxin (Digoxin 0.125 Mg Tab) 0.125 mg PO DAILY [facility] Stop: 11/10/21 08:59 Last Admin: 10/13/21 08:14 Dose: 0.125 mg Docusate Sodium (Docusate Sodium 100 Mg Cap) 100 mg PO QAM [facility] Stop: 11/08/21 08:59 Last Admin: 10/13/21 08:14 Dose: 100 mg Gabapentin (Gabapentin 100 Mg Cap) 100 mg PO HS [facility] Stop: 11/08/21 20:59 Last Admin: 10/12/21 19:53 Dose: 100 mg Ceftriaxone Sodium 2,000 mg/ (Dextrose) 70 mls @ 100 mls/hr IV DAILY [facility]; Protocol Stop: 10/26/21 14:59 Last Infusion: 10/13/21 08:53 Dose: Infused Lisinopril (Lisinopril 10 Mg Tab) 10 mg PO QAM [facility] Stop: 11/08/21 08:59 Last Admin: 10/13/21 08:13 Dose: 10 mg Melatonin (Melatonin 3 Mg Tab) 3 mg PO HS PRN PRN Reason: Insomnia Stop: 11/10/21 23:23 Last Admin: 10/12/21 19:52 Dose: 3 mg Metoprolol Succinate (Metoprolol Succ 25mg Ext Rel Tab) 37.5 mg PO BID [facility] Stop: 11/12/21 20:59 Multivitamins/Minerals (Calcium 600mg + Vit D 400 Iu Tab) 1 tab PO DAILYBB [facility] Stop: 11/08/21 08:59 Last Admin: 10/13/21 06:13 Dose: 1 tab Nitroglycerin (Nitroglycerin Sl 0.4 Mg/Tab Tab) 0.4 mg SL UD PRN PRN Reason: Chest Pain Stop: 11/08/21 01:46 Dorzolamdie-Timolol: Non-Formulary Patient's Own Med 1 each OP HS [facility] Stop: 11/09/21 20:59 Last Admin: 10/12/21 19:56 Dose: 2 drops Ondansetron HCl (Ondansetron Inj 2 Mg/Ml 2 Ml Vial) 4 mg IV Q6H PRN PRN Reason: Nausea Stop: 11/08/21 01:46 Oxycodone HCl (Oxycodone Hcl Ir 5 Mg Tab (Immediate Release)) 20 mg PO BID [facility] Stop: 10/23/21 08:59 Last Admin: 10/13/21 08:16 Dose: 20 mg Oxycodone HCl (Oxycodone Hcl Ir 5 Mg Tab (Immediate Release)) 10 mg PO DAILY@1200 [facility] Stop: 10/23/21 11:59 Last Admin: 10/13/21 12:25 Dose: 10 mg Pantoprazole Sodium (Pantoprazole 40 Mg Tab) 40 mg PO DAILY [facility] Stop: 11/08/21 08:59 Last Admin: 10/13/21 08:14 Dose: 40 mg Polyethylene Glycol (Polyethylene (Miralax) 17 Gm Pack) 17 gm PO DAILY PRN PRN Reason: Constipation Stop: 11/08/21 01:46 Prednisone (Prednisone 5 Mg Tab) 5 mg PO QAM [facility] Stop: 11/08/21 08:59 Last Admin: 10/13/21 06:13 Dose: 5 mg Rivaroxaban (Rivaroxaban 20 Mg Tab) 20 mg PO QAM [facility] Stop: 11/08/21 08:59 Last Admin: 10/13/21 08:14 Dose: 20 mg Travoprost (Travoprost Z 0.004% Oph Soln 2.5 Ml Btl) 1 drops OPB HS [facility] Stop: 11/08/21 20:59 Last Admin: 10/12/21 23:15 Dose: 1 drops
[2021-10-13] MEDS: GABAPENTIN 100 MG CAP PO SCH (20:04)
[2021-10-13] MEDS: TIMOLOL OP SCH (20:06)
[2021-10-13] MEDS: DORZOLAMIDE OP SCH (20:06)
[2021-10-13] MEDS: ACETAMINOPHEN 325 MG TAB PO PRN (21:24)
[2021-10-13] MEDS: TRAVOPROST Z 0.004% OPH SOLN 2.5 ML BTL OPB SCH (23:24)
[2021-10-13] MEDS: MELATONIN 3 MG TAB PO SCH (23:24)
--- NOTE | 2021-10-14 02:57 | Communication Note ---
Date of Service: October 14, 2021 Holding Lopressor as patient having bradycardia and pauses. cardiology on board. thanks
[2021-10-14] MEDS: predniSONE 5 MG TAB PO SCH (05:51)
[2021-10-14] MEDS: CALCIUM 600MG + VIT D 400 IU TAB PO SCH (05:51)
[2021-10-14] MEDS: ABIRATERONE ACETATE PO SCH (05:52)
[2021-10-14 07:11] LABS: BUN Creatinine Ratio 23.9 (10-20); Calcium 8.9 mg/dl (8.5-10.1); Creatinine Clr Calc Pharmacy 61.9 ml/min; Est GFR (Non-African American) 79.4 ml/min; Magnesium 1.9 mg/dl (1.7-2.4); Potassium 4.9 mmol/L (3.5-5.1)
[2021-10-14] MEDS: oxyCODONE HCL IR 5 MG TAB (IMMEDIATE RELEASE) PO SCH ×3 (07:51→20:33)
[2021-10-14] MEDS: lisinopril 10 MG TAB PO SCH (07:52)
[2021-10-14] MEDS: RIVAROXABAN 20 MG TAB PO SCH (07:52)
[2021-10-14] MEDS: DOCUSATE SODIUM 100 MG CAP PO SCH (07:52)
[2021-10-14] MEDS: DIGOXIN 0.125 MG TAB PO SCH (07:52)
[2021-10-14] MEDS: PANTOprazole 40 MG TAB PO SCH (07:52)
[2021-10-14] MEDS: cefTRIAXone SODIUM 2,000 MG in DEXTROSE 5% 50 ML IV SCH (07:53)
[2021-10-14] MEDS: BACLOFEN 20 MG TAB PO SCH ×4 (07:53→23:40)
--- NOTE | 2021-10-14 10:43 | Cardiology Progress Note ---
Date of Service October 14, 2021 Assessment & Plan (1) Paroxysmal atrial fibrillation: (2) E coli bacteremia: (3) Abdominal aortic aneurysm: (4) Hypertension: Plan 76-year-old male initially presented with transient confusion and a fall at home. Found to have E. coli bacteremia. Patient went into atrial fibrillation on 10/10 with variable rates. Patient mildly symptomatic with variable rates at times. Heart rate currently improving to 60-90 currently at rest. Metoprolol had been increased and digoxin added. He had 1 3 second pause overnight at 1:48 AM. He was asleep and asymptomatic. Hospitalist held metoprolol. Given uncontrolled hypertension, recommend resuming metoprolol and stopping digoxin. Monitor HR's. He is already anticoagulated with Xarelto due to his history of PE. Will continue for stroke prophylaxis. Continue antibiotics per hospitalist for E.Coli bacteremia. consider DCCV to attempt to restore NSR later this week, likely Tuesday. Case discussed with Dr. Nazario, will follow. Admission and Anticipated Discharge Date Admission Date: October 09, 2021 Supervising Physician Co-Signing Physician Notes Patient was seen and personally examined. Ongoing treatment being provided for E. coli bacteremia. Patient in atrial fibrillation since early in hospitalization. Heart rates generally controlled with one 3-second pause early this morning. Heart rate will increase with activity. Patient on chronic anticoagulation Plan as noted above: We will hold digoxin continue metoprolol succinate as ordered. Echocardiogram will be reviewed uncertain of feasibility of attempt to return to sinus rhythm. Patient minimally symptomatic but may consider later this week Subjective Patient resting comfortably. Reports intermittent palpitations "fluttering" but denies associated dizziness or lightheadedness. No dyspnea or CP. No orthopnea, PND or increased edema. No fever, cough, chills. He had 1 3-second pause last night around 1:48 AM. He was sleeping and asymptomatic. HR's currently ranging 60-90 at rest. Review of Systems Review of Systems: All systems reviewed & are unremarkable except as noted in HPI & below Physical Exam Constitutional: WD/WN, vitals as above Eyes: PERRL Diffuse facial ecchymosis Respiratory: normal respiratory effort, lungs clear to auscultation Cardiovascular: Rate/Rhythm: + irregularly irregular Heart Sounds: normal S1 and normal S2; no murmur Vessels: no JVD Extremities: + edema (LLE chronic lymphedema. ) Gastrointestinal (Abdomen): normal bowel sounds, soft, nontender, no hepatosplenomegaly Psychiatric: A+Ox3, euthymic affect Results & Data ([facility]) Vital Signs (Past 12 Hours) Vital Signs Temp Pulse Pulse Resp BP BP Pulse Ox 10/14/21 09:00 10/14/21 07:56 36.8 C 70 11 L 171/92 H 95 10/14/21 07:52 87 10/13/21 23:15 36.9 C 64 22 155/97 H 94 O2 Del Method 10/14/21 09:00 Room Air 10/14/21 07:56 Room Air 10/14/21 07:52 10/13/21 23:15 Room Air Laboratory Results Comprehensive Metabolic Panel 10/14/21 Range/Units 05:27 Sodium 141 (136-145) mmol/L Potassium 4.9 (3.5-5.1) mmol/L Chloride 110 H (98-107) mmol/L Carbon Dioxide 26 (21-32) mmol/L BUN 22 (6-23) mg/dl Creatinine 0.92 (0.6-1.4) mg/dl Glucose 93 (70-99(Fasting)) mg/dl Calcium 8.9 (8.5-10.1) mg/dl Intake and Output 10/13/21 10/14/21 10/14/21 22:59 06:59 14:59 Intake Total 380 / 900 200 / 900 70 / 70 Output Total 700 / 1450 750 / 1450 Balance -320 / -550 -550 / -550 / Intake: IV 70 / 70 cefTRIAXone SODIUM 2,000 mg In 70 / 70 Dextrose 5% 50 ml @ 100 mls/hr IV DAILY [facility] Rx#:[id number] Oral 380 / 830 200 / 830 Output: Urine 400 / 400 Urine Amount (Catheter) 700 / 1050 350 / 1050 External 700 / 1050 350 / 1050 # Bowel Movements Other: Other Intake Source sips # Urine Diapers 1 Weight 69.9 kg Weight Measurement Method Built in [facility] Diagnostic Findings Telemetry reviewed: Persistent atrial flutter with variable rates. Currently ranging 60-90 bpm at rest. He had one 3-second pause overnight at 1:48 AM. No symptoms. No pauses during periods of wake. Medications Administered Current Inpatient Medications Abiraterone Acetate (Abiraterone Acetate) 4 each PO DAILYBB [facility] Stop: 11/08/21 18:29 Last Admin: 10/14/21 05:52 Dose: 4 each Acetaminophen (Acetaminophen 325 Mg Tab) 650 mg PO Q4H PRN PRN Reason: Pain or Fever Stop: 11/08/21 01:46 Last Admin: 10/13/21 21:24 Dose: 650 mg Baclofen (Baclofen 20 Mg Tab) 20 mg PO QID [facility] Stop: 11/08/21 08:59 Last Admin: 10/14/21 07:53 Dose: 20 mg Docusate Sodium (Docusate Sodium 100 Mg Cap) 100 mg PO QAM [facility] Stop: 11/08/21 08:59 Last Admin: 10/14/21 07:52 Dose: 100 mg Gabapentin (Gabapentin 100 Mg Cap) 100 mg PO [facility] Stop: 11/08/21 20:59 Last Admin: 10/13/21 20:04 Dose: 100 mg Ceftriaxone Sodium 2,000 mg/ (Dextrose) 70 mls @ 100 mls/hr IV DAILY [facility]; Protocol Stop: 10/26/21 14:59 Last Infusion: 10/14/21 09:03 Dose: Infused Lisinopril (Lisinopril 10 Mg Tab) [facility] [place] Stop: 11/08/21 08:59 Last Admin: 10/14/21 07:52 Dose: 10 mg Melatonin (Melatonin 3 Mg Tab) 6 mg PO [facility] Stop: 11/12/21 22:59 Last Admin: 10/13/21 23:24 Dose: 6 mg Metoprolol Succinate (Metoprolol Succ 25mg Ext Rel Tab) 37.5 mg PO BID [facility] Stop: 11/12/21 20:59 Last Admin: 10/13/21 20:00 Dose: 37.5 mg Multivitamins/Minerals (Calcium 600mg + Vit D 400 Iu Tab) 1 tab PO DAILYBB [facility] Stop: 11/08/21 08:59 Last Admin: 10/14/21 05:51 Dose: 1 tab Nitroglycerin (Nitroglycerin Sl 0.4 Mg/Tab Tab) 0.4 mg SL UD PRN PRN Reason: Chest Pain Stop: 11/08/21 01:46 Dorzolamdie-Timolol: Non-Formulary Patient's Own Med 1 each OP [facility] Stop: 11/09/21 20:59 Last Admin: 10/13/21 20:06 Dose: 2 drops Ondansetron HCl (Ondansetron Inj 2 Mg/Ml 2 Ml Vial) 4 mg IV Q6H PRN PRN Reason: Nausea Stop: 11/08/21 01:46 Oxycodone HCl (Oxycodone Hcl Ir 5 Mg Tab (Immediate Release)) 20 mg PO BID [facility] Stop: 10/23/21 08:59 Last Admin: 10/14/21 07:51 Dose: 20 mg Oxycodone HCl (Oxycodone Hcl Ir 5 Mg Tab (Immediate Release)) 10 mg PO DAILY@1200 [facility] Stop: 10/23/21 11:59 Last Admin: 10/13/21 12:25 Dose: 10 mg Pantoprazole Sodium (Pantoprazole 40 Mg Tab) 40 mg PO DAILY [facility] Stop: 11/08/21 08:59 Last Admin: 10/14/21 07:52 Dose: 40 mg Polyethylene Glycol (Polyethylene (Miralax) 17 Gm Pack) 17 gm PO DAILY PRN PRN Reason: Constipation Stop: 11/08/21 01:46 Prednisone (Prednisone 5 Mg Tab) 5 mg PO QAM [facility] Stop: 11/08/21 08:59 Last Admin: 10/14/21 05:51 Dose: 5 mg Rivaroxaban (Rivaroxaban 20 Mg Tab) 20 mg PO QAM [facility] Stop: 11/08/21 08:59 Last Admin: 10/14/21 07:52 Dose: 20 mg Travoprost (Travoprost Z 0.004% Oph Soln 2.5 Ml Btl) 1 drops OPB HS [facility] Stop: 11/08/21 20:59 Last Admin: 10/13/21 23:24 Dose: 1 drops
--- NOTE | 2021-10-14 13:38 | Hospitalist Progress Note ---
Date of Service October 14, 2021 Assessment & Plan (1) E coli bacteremia: (2) Traumatic ecchymosis of face: Plan A 76-year-old male with past medical history significant for abdominal aortic aneurysm, hypertension, prostate cancer, bladder cancer, thrombocytopenia, osteoporosis, lumbar spinal stenosis, lumbar spinal fusion surgery, post- laminectomy syndrome, spinal cord stimulator, cervical spinal fusion surgery, GERD, chronic left foot drop, ambulatory dysfunction, status post IVC filter, history of pulmonary embolism, and chronic right arm tremor,presented to the ED on 10/08 with confusion at home which is now resolved. Also had fall at home on 10/05. Found to have E coli bacteremia. Imaging studies as below CT Lumbar spine 1. No acute fracture or subluxation identified. 2. 34 degrees levoscoliosis with advanced intervertebral disc space narrowing, spondylitic spurring and facet arthrosis. 3. Endplate irregularity at the L3-L4 and L4-L5 levels has progressively worsened from the 07/30/2019 study. These findings are favored to be degenerative. Discitis/osteomyelitis is considered much less likely. 4. Urothelial thickening is noted with bilateral perinephric inflammatory stranding. Findings should be correlated with urinalysis to exclude an ascending infection. 5. Saccular aneurysmal dilation of the infrarenal abdominal aorta, 3.9 cm without evidence of rupture CT head - No acute intracranial hemorrhage or skull fractures. Scalp swelling is seen in the left frontal region. CT pelvis 10/12 1. No bowel obstruction or bowel wall thickening. 2. Heterogeneously decreased enhancement involving the superior pole right kidney with adjacent perinephric inflammatory stranding is suggestive of acute pyelonephritis. A one month follow-up renal ultrasound is recommended to exclude the less likely possibility of an underlying lesion. 3. Nonobstructing right renal calculus. 4. Unchanged intrahepatic and extrahepatic biliary ductal dilation. 5. 2.9 x 2.1 cm saccular aneurysm of the infrarenal abdominal aorta has increased in size from the 2017 comparison. No evidence of aneurysm rupture. E coli bacteremia, likely due to right pyelonephritis although UA unremarkable - blood clx 10/09 positive for pansensitive Ecoli in 2/4 bottles, repeat blood clx 10/09 negative. leucocytosis resolved. Fever resolved. - CT A/P which showed right sided pyelonephritis. Recommended 1 month follow up ultrasound to r/o underlying lesion - Seen by ID 10/13- recommendations noted. Currently On rocephin D5/14, will continue. Will change to amoxicillin 500 mg tid at discharge per ID recommendation for a total of 2 weeks from 10/09. Probiotic while on ABx therapy. Afib with labile HR and pauses- new onset. started on digoxin 10/10 and discontinued 10/14 per cardio. Also on toprol->now increased to 37.5 bid per cardiology. 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 Monitor on tele. - Echo 10/11 with EF 65-0%, no regional WMA, no signficant valvular heart disease. - Plan for CV on tuesday per cardiology Fall with facial ecchymosis- No syncope. PT recommended rehab but he is declining. Confusion resolved. now AAOx4. Infrarenal AAA- 3.9 cm incidental finding. Recommend OP follow up with PCP Chronic back pain, DDD- continue home dose of oxycodone, baclofen, gabapentin HTN- continue lisinopril, toprol. BP stable PMR- on prednisone low dose Prostate cancer- On zytiga and lupron shots H/o PE s/p IVC filter- on Xarelto Hyperkalemia- resolved, recheck intermittently Hypophosphatemia- resolved. DVT ppx- continue xarelto Dispo- Pending CV on Tuesday per cardio. Needs PCP f/u for AAA. Updated at bedside Admission and Anticipated Discharge Date Admission Date: October 09, 2021 Subjective No new issues. He states his condom catheter slipped out last night and he was all wet. He wants to be seen by urology while he is here for his urinary issues. He feels relieved that he had a good BM. No fever, chills, chest pain, SOB, N/V/abd pain. Physical Exam Physical Exam: General: Sitting comfortably in bed, not in distress, on room air HEENT: Bilateral facial ecchymosis from fall, EOMI, YOSELYN, MMM Chest: Clear breath sounds bilaterally, no wheezes or crackles CVS: Irregular rate and rhythm, normal heart sounds, no murmur Abdomen: Soft, non tender, not distended, normal bowel sounds Neuro: Awake, alert, oriented, conversing well, non focal Extremities: No edema Results & Data Results & Data ([facility]) Vital Signs (Past 12 Hours) Vital Signs Temp Pulse Pulse Resp BP Pulse Ox O2 Del Method 10/14/21 11:46 37.3 C 85 15 111/68 94 Room Air 10/14/21 09:00 Room Air 10/14/21 07:56 36.8 C 70 11 L 171/92 H 95 Room Air 10/14/21 07:52 87 Laboratory Results [facility] 10/14/21 05:27 Sodium 141 Potassium 4.9 Chloride 110 H Carbon Dioxide 26 BUN 22 Creatinine 0.92 Glucose 93 Calcium 8.9 Medications Administered Current Inpatient Medications Abiraterone Acetate (Abiraterone Acetate) 4 each PO DAILYBB [facility] Stop: 11/08/21 18:29 Last Admin: 10/14/21 05:52 Dose: 4 each Acetaminophen (Acetaminophen 325 Mg Tab) 650 mg PO Q4H PRN PRN Reason: Pain or Fever Stop: 11/08/21 01:46 Last Admin: 10/13/21 21:24 Dose: 650 mg Baclofen (Baclofen 20 Mg Tab) 20 mg PO QID [facility] Stop: 11/08/21 08:59 Last Admin: 10/14/21 11:57 Dose: 20 mg Docusate Sodium (Docusate Sodium 100 Mg Cap) 100 mg PO QAM [facility] Stop: 11/08/21 08:59 Last Admin: 10/14/21 07:52 Dose: 100 mg Gabapentin (Gabapentin 100 Mg Cap) 100 mg PO HS [facility] Stop: 11/08/21 20:59 Last Admin: 10/13/21 20:04 Dose: 100 mg Ceftriaxone Sodium 2,000 mg/ (Dextrose) 70 mls @ 100 mls/hr IV DAILY [facility]; Protocol Stop: 10/26/21 14:59 Last Infusion: 10/14/21 09:03 Dose: Infused Lisinopril (Lisinopril 10 Mg Tab) 10 mg PO QAM [facility] Stop: 11/08/21 08:59 Last Admin: 10/14/21 07:52 Dose: 10 mg Melatonin (Melatonin 3 Mg Tab) 6 mg PO HS [facility] Stop: 11/12/21 22:59 Last Admin: 10/13/21 23:24 Dose: 6 mg Metoprolol Succinate (Metoprolol Succ 25mg Ext Rel Tab) 37.5 mg PO BID [facility] Stop: 11/12/21 20:59 Last Admin: 10/13/21 20:00 Dose: 37.5 mg Multivitamins/Minerals (Calcium 600mg + Vit D 400 Iu Tab) 1 tab PO DAILYBB [facility] Stop: 11/08/21 08:59 Last Admin: 10/14/21 05:51 Dose: 1 tab Nitroglycerin (Nitroglycerin Sl 0.4 Mg/Tab Tab) 0.4 mg SL UD PRN PRN Reason: Chest Pain Stop: 11/08/21 01:46 Dorzolamdie-Timolol: Non-Formulary Patient's Own Med 1 each OP HS [facility] Stop: 11/09/21 20:59 Last Admin: 10/13/21 20:06 Dose: 2 drops Ondansetron HCl (Ondansetron Inj 2 Mg/Ml 2 Ml Vial) 4 mg IV Q6H PRN PRN Reason: Nausea Stop: 11/08/21 01:46 Oxycodone HCl (Oxycodone Hcl Ir 5 Mg Tab (Immediate Release)) 20 mg PO BID [facility] Stop: 10/23/21 08:59 Last Admin: 10/14/21 07:51 Dose: 20 mg Oxycodone HCl (Oxycodone Hcl Ir 5 Mg Tab (Immediate Release)) 10 mg PO DAILY@1200 [facility] Stop: 10/23/21 11:59 Last Admin: 10/14/21 11:57 Dose: 10 mg Pantoprazole Sodium (Pantoprazole 40 Mg Tab) 40 mg PO DAILY [facility] Stop: 11/08/21 08:59 Last Admin: 10/14/21 07:52 Dose: 40 mg Polyethylene Glycol (Polyethylene (Miralax) 17 Gm Pack) 17 gm PO DAILY PRN PRN Reason: Constipation Stop: 11/08/21 01:46 Prednisone (Prednisone 5 Mg Tab) 5 mg PO QAM [facility] Stop: 11/08/21 08:59 Last Admin: 10/14/21 05:51 Dose: 5 mg Rivaroxaban (Rivaroxaban 20 Mg Tab) 20 mg PO QAM [facility] Stop: 11/08/21 08:59 Last Admin: 10/14/21 07:52 Dose: 20 mg Travoprost (Travoprost Z 0.004% Oph Soln 2.5 Ml Btl) 1 drops OPB HS [facility] Stop: 11/08/21 20:59 Last Admin: 10/13/21 23:24 Dose: 1 drops
[2021-10-14] MEDS: METOPROLOL SUCC 25MG EXT REL TAB PO SCH (20:34)
[2021-10-14] MEDS: GABAPENTIN 100 MG CAP PO SCH (20:34)
[2021-10-14] MEDS: MELATONIN 3 MG TAB PO SCH (23:41)
[2021-10-14] MEDS: TRAVOPROST Z 0.004% OPH SOLN 2.5 ML BTL OPB SCH (23:42)
[2021-10-14] MEDS: DORZOLAMIDE OP SCH (23:42)
[2021-10-14] MEDS: TIMOLOL OP SCH (23:42)
[2021-10-15] MEDS: ACETAMINOPHEN 325 MG TAB PO PRN (04:04)
[2021-10-15] MEDS: ABIRATERONE ACETATE PO SCH (05:47)
[2021-10-15] MEDS: CALCIUM 600MG + VIT D 400 IU TAB PO SCH (05:48)
[2021-10-15] MEDS: predniSONE 5 MG TAB PO SCH (05:48)
[2021-10-15 06:54] LABS: BUN Creatinine Ratio 22.7 (10-20); Calcium 8.8 mg/dl (8.5-10.1); Creatinine Clr Calc Pharmacy 58.7 ml/min; Est GFR (African American) 86.3 ml/min; Est GFR (Non-African American) 74.5 ml/min; Magnesium 1.8 mg/dl (1.7-2.4); Potassium 4.2 mmol/L (3.5-5.1)
[2021-10-15] MEDS: RIVAROXABAN 20 MG TAB PO SCH (07:40)
[2021-10-15] MEDS: PANTOprazole 40 MG TAB PO SCH (07:40)
[2021-10-15] MEDS: oxyCODONE HCL IR 5 MG TAB (IMMEDIATE RELEASE) PO SCH ×3 (07:40→20:41)
[2021-10-15] MEDS: cefTRIAXone SODIUM 2,000 MG in DEXTROSE 5% 50 ML IV SCH (07:40)
[2021-10-15] MEDS: METOPROLOL SUCC 25MG EXT REL TAB PO SCH (07:41)
[2021-10-15] MEDS: DOCUSATE SODIUM 100 MG CAP PO SCH (07:41)
[2021-10-15] MEDS: lisinopril 10 MG TAB PO SCH (07:41)
[2021-10-15] MEDS: BACLOFEN 20 MG TAB PO SCH ×4 (07:41→23:55)
--- NOTE | 2021-10-15 10:14 | Cardiology Progress Note ---
Date of Service October 15, 2021 Assessment & Plan (1) Paroxysmal atrial fibrillation: (2) E coli bacteremia: (3) Abdominal aortic aneurysm: (4) Hypertension: Plan 76-year-old male initially presented with transient confusion and a fall at home. Found to have E. coli bacteremia. Patient went into atrial fibrillation on 10/10 with variable rates. Patient mildly symptomatic with variable rates at times. Metoprolol previously titrated to 37.5 mg BID. Digoxin had also been added but then discontinue due to 3 second pause and bradycardia. We discussed DCCV tomorrow morning to attempt to restore NSR. He is agreeable and understanding of procedure. Will hold metoprolol starting with PM dose tonight and AM dose. Avoid all other AV melissa blocking agents overnight to prevent bradycardia in the morning with conversion to NSR. NPO after midnight, except other meds. He is already anticoagulated with Xarelto due to his history of PE. Will continue for stroke prophylaxis. Continue antibiotics per hospitalist for E.Coli bacteremia. repeat cultures have been negative. BP has improved. Continue therapies. Case discussed with Dr. Nazario and will follow. Admission and Anticipated Discharge Date Admission Date: October 09, 2021 Supervising Physician Co-Signing Physician Notes Patient was seen and personally examined. Ongoing treatment being provided for E. coli bacteremia. Patient in atrial fibrillation since early in hospitalization. Borderline tachybradycardia syndrome. Plan: Expect patient would benefit from return to sinus rhythm. Digoxin stopped we will hold metoprolol this evening. Scheduled for synchronized electrical cardioversion in a.m. no further rate control or antiarrhythmic drugs today Subjective Patient reports no new issues overnight. No chest pain or dyspnea. Reports intermittent palpitations when he is ambulating in room. No dizziness or lightheadedness. Discussed possible cardioversion tomorrow to attempt and restore NSR. He is understanding and agreeable to proceed. Review of Systems Review of Systems: All systems reviewed & are unremarkable except as noted in HPI & below Physical Exam Constitutional: WD/WN, vitals as above Eyes: PERRL Respiratory: normal respiratory effort, lungs clear to auscultation Cardiovascular: Rate/Rhythm: + irregularly irregular Heart Sounds: normal S1 and normal S2; no murmur Vessels: no JVD Extremities: + edema (LLE chronic lymphedema. ) Gastrointestinal (Abdomen): normal bowel sounds, soft, nontender, no hepato splenomegaly Psychiatric: A+Ox3, euthymic affect Results & Data ([facility]) Vital Signs (Past 12 Hours) Vital Signs Temp Pulse Resp BP Pulse Ox O2 Del Method O2 Flow Rate 10/15/21 08:00 Room Air, Nasal Cannula 1 10/15/21 03:50 37.1 C 63 14 134/73 99 Nasal Cannula 2 10/14/21 23:15 37.0 C 75 20 122/78 98 Nasal Cannula 2 Laboratory Results Comprehensive Metabolic Panel 10/15/21 Range/Units 05:26 Sodium 138 (136-145) mmol/L Potassium 4.2 (3.5-5.1) mmol/L Chloride 107 (98-107) mmol/L Carbon Dioxide 27 (21-32) mmol/L BUN 22 (6-23) mg/dl Creatinine 0.97 (0.6-1.4) mg/dl Glucose 93 (70-99(Fasting)) mg/dl Calcium 8.8 (8.5-10.1) mg/dl Intake and Output 10/14/21 10/15/21 10/15/21 22:59 06:59 14:59 Intake Total 200 / 490 70 / 70 Output Total 400 / 801 400 / 801 Balance -200 / -311 -400 / -311 70 / 70 Intake: IV 70 / 70 cefTRIAXone SODIUM 2,000 mg In 70 / 70 Dextrose 5% 50 ml @ 100 mls/hr IV DAILY [facility] Rx#:[id number] Oral 200 / 420 Output: Urine 400 / 800 400 / 800 Other: # Urine Diapers 1 Weight 72.8 kg Weight Measurement Method Built in [facility] Diagnostic Findings Telemetry reviewed: persistent afib with rates currently in the 70's. Became slightly more bradycardic overnight in the 40's. No pauses. Medications Administered Current Inpatient Medications Abiraterone Acetate (Abiraterone Acetate) 4 each PO DAILYBB [facility] Stop: 11/08/21 18:29 Last Admin: 10/15/21 05:47 Dose: 4 each Acetaminophen (Acetaminophen 325 Mg Tab) 650 mg PO Q4H PRN PRN Reason: Pain or Fever Stop: 11/08/21 01:46 Last Admin: 10/15/21 04:04 Dose: 650 mg Baclofen (Baclofen 20 Mg Tab) 20 mg PO QID [facility] Stop: 11/08/21 08:59 Last Admin: 10/15/21 07:41 Dose: 20 mg Docusate Sodium (Docusate Sodium 100 Mg Cap) 100 mg PO QAM [facility] Stop: 11/08/21 08:59 Last Admin: 10/15/21 07:41 Dose: 100 mg Gabapentin (Gabapentin 100 Mg Cap) 100 mg PO [facility] Stop: 11/08/21 20:59 Last Admin: 10/14/21 20:34 Dose: 100 mg Ceftriaxone Sodium 2,000 mg/ (Dextrose) 70 mls @ 100 mls/hr IV DAILY [facility]; Protocol Stop: 10/23/21 23:59 Last Infusion: 10/15/21 08:50 Dose: Infused Lisinopril (Lisinopril 10 Mg Tab) [facility] Stop: 11/08/21 08:59 Last Admin: 10/15/21 07:41 Dose: 10 mg Melatonin (Melatonin 3 Mg Tab) 6 mg PO [facility] Stop: 11/12/21 22:59 Last Admin: 10/14/21 23:41 Dose: 6 mg Metoprolol Succinate (Metoprolol Succ 25mg Ext Rel Tab) 37.5 mg PO BID [facility] Stop: 11/12/21 20:59 Last Admin: 10/15/21 07:41 Dose: 37.5 mg Multivitamins/Minerals (Calcium 600mg + Vit D 400 Iu Tab) [facility]: 11/08/21 08:59 Last Admin: 10/15/21 05:48 Dose: 1 tab Nitroglycerin (Nitroglycerin Sl 0.4 Mg/Tab Tab) 0.4 mg SL UD PRN PRN Reason: Chest Pain Stop: 11/08/21 01:46 Dorzolamdie-Timolol: Non-Formulary Patient's Own Med 1 each OP [facility] Stop: 11/09/21 20:59 Last Admin: 10/14/21 23:42 Dose: 1 drops Ondansetron HCl (Ondansetron Inj 2 Mg/Ml 2 Ml Vial) 4 mg IV Q6H PRN PRN Reason: Nausea Stop: 11/08/21 01:46 Oxycodone HCl (Oxycodone Hcl Ir 5 Mg Tab (Immediate Release)) 20 mg PO BID [facility] Stop: 10/23/21 08:59 Last Admin: 10/15/21 07:40 Dose: 20 mg Oxycodone HCl (Oxycodone Hcl Ir 5 Mg Tab (Immediate Release)) 10 mg PO DAILY@1200 [facility] Stop: 10/23/21 11:59 Last Admin: 10/14/21 11:57 Dose: 10 mg Pantoprazole Sodium (Pantoprazole 40 Mg Tab) 40 mg PO DAILY [facility] Stop: 11/08/21 08:59 Last Admin: 10/15/21 07:40 Dose: 40 mg Polyethylene Glycol (Polyethylene (Miralax) 17 Gm Pack) 17 gm PO DAILY PRN PRN Reason: Constipation Stop: 11/08/21 01:46 Prednisone (Prednisone 5 Mg Tab) 5 [facility] [place] Stop: 11/08/21 08:59 Last Admin: 10/15/21 05:48 Dose: 5 mg Rivaroxaban (Rivaroxaban 20 Mg Tab) 20 mg PO QAM [facility] Stop: 11/08/21 08:59 Last Admin: 10/15/21 07:40 Dose: 20 mg Travoprost (Travoprost Z 0.004% Oph Soln 2.5 Ml Btl) 1 drops OPB HS [facility] Stop: 11/08/21 20:59 Last Admin: 10/14/21 23:42 Dose: 1 drops
--- NOTE | 2021-10-15 10:33 | Hospitalist Progress Note ---
Date of Service October 15, 2021 Assessment & Plan (1) E coli bacteremia: (2) Traumatic ecchymosis of face: Plan A 76-year-old male with past medical history significant for abdominal aortic aneurysm, hypertension, prostate cancer, bladder cancer, thrombocytopenia, osteoporosis, lumbar spinal stenosis, lumbar spinal fusion surgery, post- laminectomy syndrome, spinal cord stimulator, cervical spinal fusion surgery, GERD, chronic left foot drop, ambulatory dysfunction, status post IVC filter, history of pulmonary embolism, and chronic right arm tremor,presented to the ED on 10/08 with confusion at home which is now resolved. Also had fall at home on 10/05. Found to have E coli bacteremia. Imaging studies as below CT Lumbar spine 1. No acute fracture or subluxation identified. 2. 34 degrees levoscoliosis with advanced intervertebral disc space narrowing, spondylitic spurring and facet arthrosis. 3. Endplate irregularity at the L3-L4 and L4-L5 levels has progressively worsened from the 07/30/2019 study. These findings are favored to be degenerative. Discitis/osteomyelitis is considered much less likely. 4. Urothelial thickening is noted with bilateral perinephric inflammatory stranding. Findings should be correlated with urinalysis to exclude an ascending infection. 5. Saccular aneurysmal dilation of the infrarenal abdominal aorta, 3.9 cm without evidence of rupture CT head - No acute intracranial hemorrhage or skull fractures. Scalp swelling is seen in the left frontal region. CT pelvis 10/12 1. No bowel obstruction or bowel wall thickening. 2. Heterogeneously decreased enhancement involving the superior pole right kidney with adjacent perinephric inflammatory stranding is suggestive of acute pyelonephritis. A one month follow-up renal ultrasound is recommended to exclude the less likely possibility of an underlying lesion. 3. Nonobstructing right renal calculus. 4. Unchanged intrahepatic and extrahepatic biliary ductal dilation. 5. 2.9 x 2.1 cm saccular aneurysm of the infrarenal abdominal aorta has increased in size from the 2017 comparison. No evidence of aneurysm rupture. E coli bacteremia, likely due to right pyelonephritis although UA unremarkable - blood clx 10/09 positive for pansensitive Ecoli in 2/4 bottles, repeat blood clx 10/09 negative. leucocytosis resolved. Fever resolved. - CT A/P which showed right sided pyelonephritis. Recommended 1 month follow up ultrasound to r/o underlying lesion - Seen by ID 10/13- recommendations noted. Currently On rocephin D6/14, will continue. Will change to amoxicillin 500 mg tid at discharge per ID recommendation for a total of 2 weeks from 10/09. Probiotic while on ABx therapy. Afib with labile HR and pauses- new onset. started on digoxin 10/10 and discontinued 10/14 per cardio. Also on toprol->now increased to 37.5 bid per cardiology. 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 Monitor on tele. - Echo 10/11 with EF 65-0%, no regional WMA, no signficant valvular heart disease. - Plan for DCCV tomorrow per cardiology. NPO after midnight. Holding BB per cardiology. Fall with facial ecchymosis- No syncope. PT recommended rehab but he is declining. Confusion resolved. now AAOx4. Infrarenal AAA- 3.9 cm incidental finding. Recommend OP follow up with PCP Chronic back pain, DDD- continue home dose of oxycodone, baclofen, gabapentin HTN- continue lisinopril, toprol. BP stable PMR- on prednisone low dose Prostate cancer- On zytiga and lupron shots H/o PE s/p IVC filter- on Xarelto DVT ppx- continue xarelto Dispo- Anticipate he can be discharged tomorrow after DCCV if successful. Declined rehab. Going home on home PTOT Needs PCP f/u for AAA. Admission and Anticipated Discharge Date Admission Date: October 09, 2021 Subjective He states he has not been getting enough sleep. His heart monitor alarm goes off every now and then disrupting his sleep. No other issues. No fever, chills, N/V/CP, SOB. Physical Exam Physical Exam: General: Sitting comfortably in chair, not in distress, on room air HEENT: Bilateral facial ecchymosis from fall, EOMI, YOSELYN, MMM Chest: Clear breath sounds bilaterally, no wheezes or crackles CVS: Irregular rate and rhythm, normal heart sounds, no murmur Abdomen: Soft, non tender, not distended, normal bowel sounds Neuro: Awake, alert, oriented, conversing well, non focal Extremities: No edema Results & Data Results & Data ([facility]) Vital Signs (Past 12 Hours) Vital Signs Temp Pulse Resp BP Pulse Ox O2 Del Method O2 Flow Rate 10/15/21 08:00 Room Air, Nasal Cannula 1 10/15/21 03:50 37.1 C 63 14 134/73 99 Nasal Cannula 2 10/14/21 23:15 37.0 C 75 20 122/78 98 Nasal Cannula 2 Laboratory Results BMP 10/15/21 05:26 Sodium 138 Potassium 4.2 Chloride 107 Carbon Dioxide 27 BUN 22 Creatinine 0.97 Glucose 93 Calcium 8.8 Medications Administered Current Inpatient Medications Abiraterone Acetate (Abiraterone Acetate) 4 each PO DAILYBB [facility] Stop: 11/08/21 18:29 Last Admin: 10/15/21 05:47 Dose: 4 each Acetaminophen (Acetaminophen 325 Mg Tab) 650 mg PO Q4H PRN PRN Reason: Pain or Fever Stop: 11/08/21 01:46 Last Admin: 10/15/21 04:04 Dose: 650 mg Baclofen (Baclofen 20 Mg Tab) 20 mg PO QID [facility] Stop: 11/08/21 08:59 Last Admin: 10/15/21 07:41 Dose: 20 mg Docusate Sodium (Docusate Sodium 100 Mg Cap) 100 mg PO QAM [facility] Stop: 11/08/21 08:59 Last Admin: 10/15/21 07:41 Dose: 100 mg Gabapentin (Gabapentin 100 Mg Cap) 100 mg PO [facility] Stop: 11/08/21 20:59 Last Admin: 10/14/21 20:34 Dose: 100 mg Ceftriaxone Sodium 2,000 mg/ (Dextrose) 70 mls @ 100 mls/hr IV DAILY [facility]; Protocol Stop: 10/23/21 23:59 Last Infusion: 10/15/21 08:50 Dose: Infused Lisinopril (Lisinopril 10 Mg Tab) 10 mg PO QAM [facility] Stop: 11/08/21 08:59 Last Admin: 10/15/21 07:41 Dose: 10 mg Melatonin (Melatonin 3 Mg Tab) 6 mg PO HS [facility] Stop: 11/12/21 22:59 Last Admin: 10/14/21 23:41 Dose: 6 mg Metoprolol Succinate (Metoprolol Succ 25mg Ext Rel Tab) 37.5 mg PO BID [facility] Stop: 11/12/21 20:59 Last Admin: 10/15/21 07:41 Dose: 37.5 mg Multivitamins/Minerals (Calcium 600mg + Vit D 400 Iu Tab) 1 tab PO DAILYBB [facility] Stop: 11/08/21 08:59 Last Admin: 10/15/21 05:48 Dose: 1 tab Nitroglycerin (Nitroglycerin Sl 0.4 Mg/Tab Tab) 0.4 mg SL UD PRN PRN Reason: Chest Pain Stop: 11/08/21 01:46 Dorzolamdie-Timolol: Non-Formulary Patient's Own Med 1 each OP HS [facility] Stop: 11/09/21 20:59 Last Admin: 10/14/21 23:42 Dose: 1 drops Ondansetron HCl (Ondansetron Inj 2 Mg/Ml 2 Ml Vial) 4 mg IV Q6H PRN PRN Reason: Nausea Stop: 11/08/21 01:46 Oxycodone HCl (Oxycodone Hcl Ir 5 Mg Tab (Immediate Release)) 20 mg PO BID [facility] Stop: 10/23/21 08:59 Last Admin: 10/15/21 07:40 Dose: 20 mg Oxycodone HCl (Oxycodone Hcl Ir 5 Mg Tab (Immediate Release)) 10 mg PO DAILY@1200 [facility] Stop: 10/23/21 11:59 Last Admin: 10/14/21 11:57 Dose: 10 mg Pantoprazole Sodium (Pantoprazole 40 Mg Tab) 40 mg PO DAILY [facility] Stop: 11/08/21 08:59 Last Admin: 10/15/21 07:40 Dose: 40 mg Polyethylene Glycol (Polyethylene (Miralax) 17 Gm Pack) 17 gm PO DAILY PRN PRN Reason: Constipation Stop: 11/08/21 01:46 Prednisone (Prednisone 5 Mg Tab) 5 mg PO QAM [facility] Stop: 11/08/21 08:59 Last Admin: 10/15/21 05:48 Dose: 5 mg Rivaroxaban (Rivaroxaban 20 Mg Tab) 20 mg PO QAM [facility] Stop: 11/08/21 08:59 Last Admin: 10/15/21 07:40 Dose: 20 mg Travoprost (Travoprost Z 0.004% Oph Soln 2.5 Ml Btl) 1 drops OPB HS [facility] Stop: 11/08/21 20:59 Last Admin: 10/14/21 23:42 Dose: 1 drops
--- NOTE | 2021-10-15 15:37 | Urology Consultation ---
Date of Consultation October 15, 2021 Assessment & Plan (1) Urinary incontinence: (2) Pyelonephritis: (3) E coli bacteremia: Plan 76yo M who presented s/p fall at home and admitted with E.coli bacteremia likely due to right pyelonephritis and new onset Afib. -Patient requested urology consult for urinary incontinence. -Afebrile, labs reviewed-leukocytosis resolved, creatinine normal. -Urine culture 10/11 negative; Blood culture 10/09 with E. coli, repeat negative. -Continues on IV ceftriaxone. ID consulted for antibiotic management. -Voiding in urinal with episodes of incontinence, output appears adequate. Continue to monitor, bladder scan as needed. -Will arrange outpatient follow-up with our service for further discussion of urinary symptoms and for follow-up renal ultrasound. -Patient is agreeable to plan, all questions were answered. -Urology will sign-off. Please contact us with any further questions, concerns, or changes in patient status. Supervising Physician Co-Signing Physician Notes I have discussed Mr. Romero's case with BRIDGER Alexander and agree with the above documentation. Would recommend bladder scanning to ensure that his bladder is empty and he is not in overflow incontinence. Otherwise, can manage with condom cath or try with timed voiding. We will arrange outpatient follow- up. History of Present Illness Reason for Consultation: Urinary incontinence, patient requesting visit Attending Physician: Luis Carlos Joiner MD History of Present Illness 76-year-old male with past medical history significant for abdominal aortic aneurysm, hypertension, prostate cancer, bladder cancer, thrombocytopenia, osteoporosis, lumbar spinal stenosis, lumbar spinal fusion surgery, post- laminectomy syndrome, spinal cord stimulator, cervical spinal fusion surgery, GERD, chronic left foot drop, ambulatory dysfunction, status post IVC filter, history of pulmonary embolism on anticoagulation, and chronic right arm tremor who initially presented with transient confusion after a fall at home and was found to have have E. coli bacteremia and new on set Afib. A CT abdomen pelvis was obtained and notable for right pyelonephritis. Blood cultures from 10/09 were positive for E. coli in 2/out of 4 bottles, repeat blood cultures 10/09 negative. Urine culture was negative. Patient is currently on IV ceftriaxone. Patient requested urology consult for urinary incontinence. Patient is known to our practice, follows with Dr. Mario. History of bladder and prostate cancer. Last seen in February 2021 for yearly surveillance cystoscopy which was clear. He continues on Lupron for prostate cancer. CT abdomen pelvis - 1. No bowel obstruction or bowel wall thickening. 2. Heterogeneously decreased enhancement involving the superior pole right kidney with adjacent perinephric inflammatory stranding is suggestive of acute pyelonephritis. A one month follow-up renal ultrasound is recommended to exclude the less likely possibility of an underlying lesion. 3. Nonobstructing right renal calculus. 4. Unchanged intrahepatic and extrahepatic biliary ductal dilation. 5. 2.9 x 2.1 cm saccular aneurysm of the infrarenal abdominal aorta has increased in size from the 2017 comparison. No evidence of aneurysm rupture. Patient examined at bedside this afternoon. Awake, sitting in bedside chair on arrival. No acute distress. States he has been dealing with urinary incontinence and leakage. He has tried an external catheter, but has trouble keeping this in place. Has been voiding in the urinal. No hematuria or dysuria. States he voids frequent small amounts. Stream is slow. Does not push/strain. Some urgency. Nocturia 34. States he has previously tried Myrbetriq but was not able to tolerate. He is not currently on any other urinary medications. Patient is undergoing cardiac evaluation, scheduled for synchronized electrical cardioversion in a.m. Allergies Allergy/AdvReac Type Severity Reaction Status Date / Time adalimumab Allergy Severe GI SYMPTOMS Verified 10/08/21 16:58 mirabegron Allergy Intermediate NEUROLOGICAL Verified 10/08/21 16:58 SYMPTOMS/STOMACH PAINS methotrexate Allergy Unknown Blood Verified 10/08/21 16:58 platelets drop. naproxen Allergy Unknown dilusional Verified 10/08/21 16:58 Home Medications Medication Instructions Recorded Confirmed Type abiraterone 250 mg tablet (Zytiga) 1,000 mg PO QAM 01/26/18 10/08/21 History calcium carbonate 500 mg-vitamin 1 tab PO QAM 01/26/18 10/08/21 History D3 10 mcg (400 unit) tablet (Calcium 500 With D) docusate sodium 50 mg capsule 50 mg PO QAM 01/26/18 10/08/21 History leuprolide acetate (6 month) 45 mg 1 dose IM UD 01/26/18 10/08/21 History intramuscular syringe kit (Lupron Depot) pregabalin 300 mg capsule (Lyrica) 300 mg PO BID 01/26/18 10/08/21 History timolol maleate (PF) 0.5 % eye 1 drp OPB BID 01/26/18 10/08/21 History drops in a dropperette travoprost 0.004 % eye drops 1 drp OPB HS 01/26/18 10/08/21 History (Travatan Z) rivaroxaban 20 mg tablet (Xarelto) 20 mg PO QAM #0 tabs 02/17/18 10/08/21 Rx oxycodone 10 mg tablet 10 mg PO .COMPLEX 09/24/21 10/08/21 History prednisone 5 mg tablet 5 mg PO QAM 09/24/21 10/08/21 History baclofen 10 mg tablet 20 mg PO QID 10/08/21 10/08/21 History celecoxib 100 mg capsule 100 mg PO BID 10/08/21 10/08/21 History gabapentin 100 mg capsule 100 mg PO HS 10/08/21 10/08/21 History Patient History Medical History Abdominal aortic aneurysm per 05/25/17 CT: "Focal outpouchings of the juxtarenal and infrarenal abdominal aorta, 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 The infrarenal lesion currently measures 33 mm in maximum diameter from the center line, unchanged in size when compared to the most recent prior examination of 08/11/2016 but is enlarged when compared to more remote examination of 11/13/2014. The juxtarenal lesion appears unchanged when compared to prior examination of 11/13/2014 measuring 26 mm in maximum axial diameter on both examinations." Chronic back pain LEFT LEG Deep vein thrombosis S/P LEG INJURY 2014 Glaucoma [place] filter in place 2014 H/O prostate cancer S/P PROSTATECTOMY 2006 History of bladder cancer s/p TURBT 06/2016 History of ITP 2014, tx with prednisone Malignant neoplasm of urinary bladder On anticoagulant therapy Osteoarthritis Overactive bladder Prostate cancer Pulmonary embolism FROM DVT 2014 Sleep apnea CPAP Transient ischemic attack (TIA) HX, COUPLE YEARS AGO, UNCLEAR IF ACTUAL TIA. PT ON XARELTO NOW FOR DVT/PE HX. Surgical History H/O shoulder surgery RIGHT History of bladder surgery TURBT 06/2016 History of laminectomy History of prostatectomy S/P PROSTATE CANCER 2006- s/p radiation and prostatectomy. Recurrent disease found in lymph node 2015. On hormone therapy. History of total hip arthroplasty R/L Hx of cervical spine surgery ANTERIOR Family History Mother Alzheimer disease Father Aortic aneurysm Other Family history non-contributory Social History Smoking Status: Current every day smoker Tobacco Type: Cigars Cigarettes Per Day: 1 PACK OF MINI-CIGARS PER MONTH; Second Hand Exposure: No; Hx Alcohol Use: No Hx Substance Use: No Preferred Language: Kinyarwanda Communication Ability: Effective Pleating Supervisor Required: No Beliefs That Will Affect Care: None marital status: Current Living Situation: Spouse Other Information That Helps Us Care for You: No Feels Safe at Home: Yes Safety Concerns: Feels Safe At This Time Assistive Devices: Walker Assistive Devices Comment: shower chair Review of Systems Review of Systems: All systems reviewed & are unremarkable except as noted in HPI & below Physical Exam Constitutional: no acute distress ENMT: Bilateral facial ecchymosis Neck: normal visual inspection Respiratory: no respiratory distress and no labored breathing Gastrointestinal (Abdomen): Inspection/Auscultation: abdomen normal to inspection Musculoskeletal: Head/Neck/Chest: normocephalic Skin: Warm and dry Neurologic: awake Psychiatric: A+Ox3, euthymic affect Results & Data ([facility]) Vital Signs (Past 12 Hours) Vital Signs Temp Pulse Resp BP BP Pulse Ox O2 Del Method 10/15/21 11:06 36.8 C 79 17 91/67 L 92 Nasal Cannula 10/15/21 08:00 Room Air, Nasal Cannula 10/15/21 03:50 37.1 C 63 14 134/73 99 Nasal Cannula O2 Flow Rate 10/15/21 11:06 2 10/15/21 08:00 1 10/15/21 03:50 2 PG Care Time/CCT Total # of Minutes Spent Total Time Spent with Patient: Total time spent is greater than 50% in coordination of care (as documented) at patient's floor/unit and/or counseling patient: Coding Level of Care Code 81044 Initial Inpt Care Lvl 2 Diagnoses Urinary incontinence R32 Pyelonephritis N12 E coli bacteremia R78.81; B96.20
[2021-10-15] MEDS: GABAPENTIN 100 MG CAP PO SCH (20:36)
[2021-10-15] MEDS: TIMOLOL OP SCH (20:38)
[2021-10-15] MEDS: TRAVOPROST Z 0.004% OPH SOLN 2.5 ML BTL OPB SCH (20:38)
[2021-10-15] MEDS: DORZOLAMIDE OP SCH (20:38)
[2021-10-15] MEDS: MELATONIN 3 MG TAB PO SCH (23:55)
[2021-10-16] MEDS ORDERED: MAGNESIUM SULFATE / D5W 1 GM/100 ML BAG IV ONE (03:25)
[2021-10-16] MEDS: predniSONE 5 MG TAB PO SCH (05:45)
[2021-10-16] MEDS: CALCIUM 600MG + VIT D 400 IU TAB PO SCH (05:45)
[2021-10-16] MEDS: ABIRATERONE ACETATE PO SCH (05:45)
[2021-10-16] MEDS ORDERED: PROPOFOL IV EMULSION 10 MG/ML 20 ML VIAL IV ONE (06:55)
--- NOTE | 2021-10-16 07:04 | Anesthesiology Consultation ---
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 naproxen Allergy Unknown dilusional Verified 10/08/21 16:58 Medications Home Medications Medication Instructions Recorded Confirmed Last Taken abiraterone 250 mg tablet (Zytiga) 1,000 mg PO QAM 01/26/18 10/08/21 10/08/21 08:00 calcium carbonate 500 mg-vitamin 1 tab PO QAM 01/26/18 10/08/21 10/08/21 08:00 D3 10 mcg (400 unit) tablet (Calcium 500 With D) docusate sodium 50 mg capsule 50 mg PO QAM 01/26/18 10/08/21 10/08/21 08:00 leuprolide acetate (6 month) 45 mg 1 dose IM UD 01/26/18 10/08/21 08/18/17 14:00 intramuscular syringe kit (Lupron Depot) pregabalin 300 mg capsule (Lyrica) 300 mg PO BID 01/26/18 10/08/21 10/08/21 08:00 timolol maleate (PF) 0.5 % eye 1 drp OPB BID 01/26/18 10/08/21 10/08/21 08:00 drops in a dropperette travoprost 0.004 % eye drops 1 drp OPB HS 01/26/18 10/08/21 02/16/18 23:30 (Travatan Z) rivaroxaban 20 mg tablet (Xarelto) 20 mg PO QAM #0 tabs 02/17/18 10/08/21 10/08/21 08:00 oxycodone 10 mg tablet 10 mg PO .COMPLEX 09/24/21 10/08/21 10/08/21 08:00 prednisone 5 mg tablet 5 mg PO QAM 09/24/21 10/08/21 10/08/21 08:00 baclofen 10 mg tablet 20 mg PO QID 10/08/21 10/08/21 Unknown celecoxib 100 mg capsule 100 mg PO BID 10/08/21 10/08/21 Unknown gabapentin 100 mg capsule 100 mg PO HS 10/08/21 10/08/21 Unknown Active Medications Generic Name Dose Route Start Last Admin Trade Name Freq PRN Reason Stop Dose Admin Abiraterone Acetate 4 each 10/09/21 18:30 10/16/21 05:45 Abiraterone Acetate PO 11/08/21 18:29 4 each DAILYBB MEMO Administration Acetaminophen 650 mg 10/09/21 01:47 10/15/21 04:04 Acetaminophen 325 Mg Tab PO 11/08/21 01:46 650 mg Q4H PRN Administration Pain or Fever Baclofen 20 mg 10/09/21 09:00 10/15/21 23:55 Baclofen 20 Mg Tab PO 11/08/21 08:59 20 mg QID MEMO Administration Docusate Sodium 100 mg 10/09/21 09:00 10/15/21 07:41 Docusate Sodium 100 Mg Cap PO 11/08/21 08:59 100 mg QAM MEMO Administration Gabapentin 100 mg 10/09/21 21:00 10/15/21 20:36 Gabapentin 100 Mg Cap PO 11/08/21 20:59 100 mg HS MEMO Administration Ceftriaxone Sodium 2,000 mg/ 70 mls @ 100 mls/hr 10/12/21 15:00 10/15/21 08:50 Dextrose IV 10/23/21 23:59 Infused DAILY MEMO Infusion Protocol Lisinopril 10 mg 10/09/21 09:00 10/15/21 07:41 Lisinopril 10 Mg Tab PO 11/08/21 08:59 10 mg QAM MEMO Administration Melatonin 6 mg 10/13/21 23:00 10/15/21 23:55 Melatonin 3 Mg Tab PO 11/12/21 22:59 6 mg HS MEMO Administration Metoprolol Succinate 37.5 mg 10/13/21 21:00 10/15/21 07:41 Metoprolol Succ 25mg Ext Rel Tab PO 11/12/21 20:59 37.5 mg BID MEMO Administration Multivitamins/Minerals 1 tab 10/12/21 07:45 10/16/21 05:45 Calcium 600mg + Vit D 400 Iu Tab PO 11/08/21 08:59 1 tab DAILYBB MEMO Administration Dorzolamdie-Timolol: 1 each 10/10/21 21:00 10/15/21 20:38 Non-Formulary OP 11/09/21 20:59 1 drops Patient's Own Med HS MEMO Administration Oxycodone HCl 20 mg 10/09/21 09:00 10/15/21 20:41 Oxycodone Hcl Ir 5 Mg Tab (Immediate Release) PO 10/23/21 08:59 20 mg BID MEMO Administration Oxycodone HCl 10 mg 10/09/21 12:00 10/15/21 12:11 Oxycodone Hcl Ir 5 Mg Tab (Immediate Release) PO 10/23/21 11:59 10 mg DAILY@1200 MEMO Administration Pantoprazole Sodium 40 mg 10/09/21 09:00 10/15/21 07:40 Pantoprazole 40 Mg Tab PO 11/08/21 08:59 40 mg DAILY MEMO Administration Prednisone 5 mg 10/09/21 09:00 10/16/21 05:45 Prednisone 5 Mg Tab PO 11/08/21 08:59 5 mg QAM MEMO Administration Rivaroxaban 20 mg 10/09/21 09:00 10/15/21 07:40 Rivaroxaban 20 Mg Tab PO 11/08/21 08:59 20 mg QAM MEMO Administration Travoprost 1 drops 10/09/21 21:00 10/15/21 20:38 Travoprost Z 0.004% Oph Soln 2.5 Ml Btl OPB 11/08/21 20:59 1 drops HS MEMO Administration Past Medical History Medical History Abdominal aortic aneurysm per 05/25/17 CT: "Focal outpouchings of the juxtarenal and infrarenal abdominal aorta, 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 The infrarenal lesion currently measures 33 mm in maximum diameter from the center line, unchanged in size when compared to the most recent prior examination of 08/11/2016 but is enlarged when compared to more remote examination of 11/13/2014. The juxtarenal lesion appears unchanged when compared to prior examination of 11/13/2014 measuring 26 mm in maximum axial diameter on both examinations." Chronic back pain LEFT LEG Deep vein thrombosis S/P LEG INJURY 2014 Glaucoma [place] filter in place 2014 H/O prostate cancer S/P PROSTATECTOMY 2006 History of bladder cancer s/p TURBT 06/2016 History of ITP 2014, tx with prednisone Malignant neoplasm of urinary bladder On anticoagulant therapy Osteoarthritis Overactive bladder Prostate cancer Pulmonary embolism FROM DVT 2014 Sleep apnea CPAP Transient ischemic attack (TIA) HX, COUPLE YEARS AGO, UNCLEAR IF ACTUAL TIA. PT ON XARELTO NOW FOR DVT/PE HX. Past Family History Family History Mother Alzheimer disease Father Aortic aneurysm Other Family history non-contributory Past Surgical History Surgical History H/O shoulder surgery RIGHT History of bladder surgery TURBT 06/2016 History of laminectomy History of prostatectomy S/P PROSTATE CANCER 2005- s/p radiation and prostatectomy. Recurrent disease found in lymph node 2014. On hormone therapy. History of total hip arthroplasty R/L Hx of cervical spine surgery ANTERIOR Social History Smoking Status: Current every day smoker tobacco type: cigars Smoking cigarettes per day: 1 PACK OF MINI-CIGARS PER MONTH Hx Alcohol Use: No Alcohol type: beer, wine and hard liquor Hx Substance Use: No Physical Exam Vital Signs Last Vital Signs Temp 97.9 F 10/16/21 02:39 Pulse 55 L 10/16/21 02:39 Resp 16 10/16/21 02:39 BP 146/88 H 10/16/21 02:39 Pulse Ox 92 10/16/21 02:39 O2 Del Method 10/16/21 02:39 O2 Flow Rate 2 10/16/21 02:39 Testing Laboratory Results 10/13/21 06:43 Urine Color Yellow 10/11/21 Unknown Urine Appearance Clear (Clear) 10/11/21 Unknown Urine pH 6.0 (4.5-7.5) 10/11/21 Unknown Ur Specific [place] 1.010 (1.000-1.030) 10/11/21 Unknown Urine Protein Negative (Negative) 10/11/21 Unknown Urine Glucose (UA) Negative (Negative) 10/11/21 Unknown Urine Ketones Negative (Negative) 10/11/21 Unknown Urine Nitrite Negative (Negative) 10/11/21 Unknown Ur Leukocyte Esterase Negative (Negative) 10/11/21 Unknown Urine WBC (Auto) 1-5 /hpf (0-5) 10/11/21 Unknown Urine RBC (Auto) 10-30 /hpf (0-4) H 10/11/21 Unknown U Hyaline Cast (Auto) 0 /lpf (0-5) 10/11/21 Unknown U Epithel Cells (Auto) 0-5 /lpf (0-5) 10/11/21 Unknown Urine Bacteria (Auto) Negative (Negative) 10/11/21 Unknown 10/09/21 18:14 Aerobic Blood Culture - Final Blood No growth in Aerobic bottle after 5 days. Anaerobic Blood Culture - Final No growth in Anaerobic bottle after 5 days. 10/09/21 18:23 Aerobic Blood Culture - Final Blood No growth in Aerobic bottle after 5 days. Anaerobic Blood Culture - Final No growth in Anaerobic bottle after 5 days. 10/09/21 04:29 Aerobic Blood Culture - Final Blood No growth in Aerobic bottle after 5 days. Anaerobic Blood Culture - Final No growth in Anaerobic bottle after 5 days. 10/11/21 Unknown Urine Culture - Final Urine,Straight Cath No growth - less than 1,000 colonies/mL. 10/09/21 04:33 Aerobic Blood Culture - Final Blood Escherichia coli Anaerobic Blood Culture - Final Escherichia coli Electrocardiogram Date: 10/13/21 Atrial fibrillation, rate 96 bpm Right superior axis deviation Abnormal ECG When compared with ECG of 10-OCT-2021 13:24, QRS axis Shifted left Confirmed by Darrius Montes ([id number]) on 10/13/2021 11:49:30 AM Chest X-Ray Date: 10/08/21 Findings: + NAD Echocardiogram Date: 10/11/21 LV is normal in size No regional wall motion abnormalities noted EF 65-70% Borderline LAE AV sclerosis mild, without significant AV stenosis
[2021-10-16 07:30] LABS: BUN Creatinine Ratio 27.2 (10-20); Calcium 8.8 mg/dl (8.5-10.1); Creatinine Clr Calc Pharmacy 61.9 ml/min; Est GFR (Non-African American) 79.4 ml/min; Magnesium 2.1 mg/dl (1.7-2.4)
--- NOTE | 2021-10-16 07:35 | Cardioversion ---
Date of Service October 16, 2021 Electrical Cardioversion Rpt Electrical Cardioversion Report Patient seen and examined chart reviewed. Procedure explained in detail, informed consent obtained. Formal TIMEOUT performed.' Patient sedated via anesthesia consult with continuous O2, HR. BP and endtidal CO2 monitoring Single 150 J biphasic synchronized cardioversion performed with successful conversion to sinus rhythm. Patient aroused having tolerated well EKG Sinus bradycardia with 1st degree AV block at 51 bpm
--- NOTE | 2021-10-16 07:55 | Anesthesiology Progress Note ---
Date of Service October 16, 2021 Anesthesia Post Procedure Vital Signs Vital Signs: Temp Pulse Pulse Resp BP BP BP 10/16/21 07:45 53 L 16 141/68 H 10/16/21 07:30 51 L 16 110/66 10/16/21 07:00 67 16 134/97 10/16/21 02:39 97.9 F 55 L 16 146/88 H 10/15/21 23:00 67 10/15/21 23:00 97.9 F 101 H 20 132/73 10/15/21 20:00 10/15/21 19:00 97.9 F 83 20 98/56 L 10/15/21 15:07 98.1 F 86 16 90/66 L 10/15/21 11:06 98.2 F 79 17 91/67 L 10/15/21 08:00 Pulse Ox O2 Del Method O2 Flow Rate 10/16/21 07:45 100 Nasal Cannula 2 10/16/21 07:30 100 Nasal Cannula 2 10/16/21 07:00 98 Room Air 10/16/21 02:39 92 Nasal Cannula 2 10/15/21 23:00 10/15/21 23:00 90 Nasal Cannula, Ambu-Bag 2 10/15/21 20:00 Room Air 10/15/21 19:00 93 Room Air 10/15/21 15:07 92 Room Air 10/15/21 11:06 92 Nasal Cannula 2 10/15/21 08:00 Room Air, Nasal Cannula 1 Pain Intensity Bilateral Foot: Pain Intensity: 0 Transfer of Care Handoff Completed per policy Notes Mental Status: alert / awake / arousable and participated in evaluation Patient Amnestic to Procedure: Yes Nausea / Vomiting: adequately controlled Pain: adequately controlled Airway Patency, RR, SpO2: stable & adequate BP & HR: stable & adequate Hydration State: stable & adequate Anesthetic Complications: no major complications apparent and Pt Satisfied with anesthetic care
[2021-10-16] MEDS: oxyCODONE HCL IR 5 MG TAB (IMMEDIATE RELEASE) PO SCH ×2 (08:17→12:21)
[2021-10-16] MEDS: DOCUSATE SODIUM 100 MG CAP PO SCH (08:19)
[2021-10-16] MEDS: PANTOprazole 40 MG TAB PO SCH (08:20)
[2021-10-16] MEDS: BACLOFEN 20 MG TAB PO SCH (08:20)
[2021-10-16] MEDS: RIVAROXABAN 20 MG TAB PO SCH (08:20)
[2021-10-16] MEDS: cefTRIAXone SODIUM 2,000 MG in DEXTROSE 5% 50 ML IV SCH (08:25)
[2021-10-16] MEDS ORDERED: METOPROLOL SUCC 25MG EXT REL TAB PO SCH (09:00)
--- NOTE | 2021-10-16 11:01 | Cardiology Progress Note ---
Date of Service October 16, 2021 Assessment & Plan (1) Paroxysmal atrial fibrillation: (2) E coli bacteremia: (3) Abdominal aortic aneurysm: (4) Hypertension: Plan 76-year-old male initially presented with transient confusion and a fall at home. Found to have E. coli bacteremia. Patient went into atrial fibrillation on 10/10 with variable rates. 10/16/2021. Patient referred and underwent synchronized electrical cardioversion with return to sinus rhythm with good tolerance of procedure. Suspect atrial fibrillation incited by acute issues and fall, sepsis Would continue chronic anticoagulation as in past Discharge on metoprolol succinate 12.5 mg twice per day Follow-up cardiology 4 to 6 weeks, PCP as scheduled 10/20 Continue antibiotics per hospitalist for E.Coli bacteremia. repeat cultures have been negative. Admission and Anticipated Discharge Date Admission Date: October 09, 2021 Subjective Patient was seen both pre and post synchronized electrical cardioversion. No cardiac complaints and tolerated procedure well this morning with successful conversion to sinus rhythm. No chest pains or shortness of breath. Heart rhythm post conversion sinus bradycardia. Tolerated anesthesia well Review of Systems Review of Systems: All systems reviewed & are unremarkable except as noted in Subjective Physical Exam Constitutional: WD/WN, vitals as above Eyes: Healing contusion left forward with extensive forehead and facial ecchymosis slowly improving ENMT: external ear and nose normal, oropharynx normal Neck: trachea midline, no thyromegaly Respiratory: normal respiratory effort, lungs clear to auscultation Cardiovascular: Rate/Rhythm: regular rate and regular rhythm Vessels: no JVD Extremities: no edema Results & Data ([facility]) Vital Signs (Past 12 Hours) Vital Signs Temp Pulse Pulse Resp BP BP BP 10/16/21 10:35 36.5 C 57 L 14 122/74 10/16/21 08:06 36.5 C 57 L 14 122/74 10/16/21 07:45 53 L 16 141/68 H 10/16/21 07:30 51 L 16 110/66 10/16/21 07:00 67 16 134/97 10/16/21 02:39 36.6 C 55 L 16 146/88 H 10/15/21 23:00 67 10/15/21 23:00 36.6 C 101 H 20 132/73 Pulse Ox O2 Del Method O2 Flow Rate 10/16/21 10:35 99 10/16/21 08:06 99 Room Air 08/26/22 07:45 100 Nasal Cannula 2 10/16/21 07:30 100 Nasal Cannula 2 10/16/21 07:00 98 Room Air 10/16/21 02:39 92 Nasal Cannula 2 10/15/21 23:00 10/15/21 23:00 90 Nasal Cannula, Ambu-Bag 2 Laboratory Results Laboratory Results - last 24 hr 10/16/21 06:41 Sodium 139 Potassium 4.0 Chloride 108 H Carbon Dioxide 25 Anion Gap 6 BUN 25 H Creatinine 0.92 Est Cr Clr Drug Dosing 61.9 Est GFR ( Amer) 92.0 Est GFR (Non-Af Amer) 79.4 BUN/Creatinine Ratio 27.2 H Glucose 96 Calcium 8.8 Magnesium 2.1
--- NOTE | 2021-10-16 11:19 | Electrocardiogram Report ---
Test Reason : Blood Pressure : / mmHG Vent. Rate : 051 BPM Atrial Rate : 051 BPM P-R Int : 218 ms QRS Dur : 088 ms QT Int : 454 ms P-R-T Axes : 037 -04 084 degrees QTc Int : 418 ms Sinus bradycardia with 1st degree A-V block Diffuse Nonspecific T wave abnormality Abnormal ECG When compared with ECG of 13-OCT-2021 09:34, Sinus rhythm has replaced Atrial fibrillation Vent. rate has decreased BY 45 BPM QRS axis Shifted right (prior tracing likely limb lead reversal) Confirmed by Darrius Montes ([id number]) on 10/16/2021 11:19:16 AM Referred By: REFERRED SELF Confirmed By:Darrius Montes
--- NOTE | 2021-10-16 11:31 | Discharge Summary ---
Date of Service October 16, 2021 Admission HPI Per Admitting Provider A 76-year-old male with past medical history significant for abdominal aortic aneurysm, hypertension, prostate cancer, bladder cancer, thrombocytopenia, osteoporosis, lumbar spinal stenosis, lumbar spinal fusion surgery, post- laminectomy syndrome, spinal cord stimulator, cervical spinal fusion surgery, GERD, chronic left foot drop, ambulatory dysfunction, status post IVC filter, history of pulmonary embolism, and chronic right arm tremor, was brought in because of recent fall. The patient had seen the family doctor on the day of fall on 10/05/2021, it occurred in bathroom. No loss of consciousness. Struck his head and large forehead hematoma. CT of the head and CT of the cervical spine were done as an outpatient and were unremarkable. He seemed to be getting more confused at home and blood pressure was running high at home. seems to be not able to take care of him. So he was brought to the hospital here. Here imaging studies were also unremarkable. Urinalysis negative. SARS-CoV-2 test is negative. The patient has bruise and hematoma on his forehead, answers questions appropriately, but seems to be getting somewhat restless. Denies any headache. Denies any blurred visions, no runny nose, no cough, no fevers. Denies any chest pain or shortness of breath. He says he has some nausea and vomiting. He says appetite is okay. No belly pain. He says he is somewhat constipated. He says he has some difficulty urinating. Hemodynamics are stable in the ER.Not able to reach at this time. Admission Exam Per Admitting Provider GENERAL: The patient is alert, awake, oriented, not in acute distress. VITAL SIGNS: Temperature 37, pulse 80, respiratory rate 26, blood pressure 180/97, oxygen 96% on room air. HEENT: Pupils equal, round and reactive to light. Some bumps seen on the forehead and bruising on the face. Oral mucosa moist. NECK: No JVD, no neck masses. CARDIOVASCULAR: S1 and S2 heard. Regular rate and rhythm. No murmur, no gallop. RESPIRATORY SYSTEM: Normal AP diameter. No accessory muscle use. No wheezing or crackles. ABDOMEN: Soft, bowel sounds present, nontender, no distention. CENTRAL NERVOUS SYSTEM: Alert and awake. Speech is okay. No facial droop. Obeys simple commands. Moves extremities. EXTREMITIES: No edema, no erythema. Principal Diagnosis E coli bacteremia due to acute right pyelonephritis, new onset A fib with RVR s/p DCCV, Fall Discharge Exam General: Sitting comfortably in chair, not in distress, on room air HEENT: Bilateral facial ecchymosis from fall, EOMI, YOSELYN, MMM Chest: Clear breath sounds bilaterally, no wheezes or crackles CVS: regular, mild bradycardia, normal heart sounds, no murmur Abdomen: Soft, non tender, not distended, normal bowel sounds Neuro: Awake, alert, oriented, conversing well, non focal Extremities: No edema Discharge Data Allergies Allergy/AdvReac Type Severity Reaction Status Date / Time adalimumab Allergy Severe GI SYMPTOMS Verified 10/08/21 16:58 mirabegron Allergy Intermediate NEUROLOGICAL Verified 10/08/21 16:58 SYMPTOMS/STOMACH PAINS methotrexate Allergy Unknown Blood Verified 10/08/21 16:58 platelets drop. naproxen Allergy Unknown dilusional Verified 10/08/21 16:58 Consultations 10/10/21 09:51 Consult Orthopedic Surgery Routine 10/10/21 09:59 Consult Infectious Diseases Routine 10/10/21 10:02 Consult Gastroenterology Routine 10/12/21 16:27 Consult Cardiology Routine 10/14/21 12:02 Consult Urology Routine 10/16/21 07:15 Consult Anesthesiology Routine Procedures Performed Operation Date: 10/16/21 07:15 Actual Procedures p Cardioversion - Cesario Nazario MD Ordered Studies 10/08/21 16:58 CT cervical spine wo con Stat CT head/brain wo con Stat 10/09/21 10:39 CT lumbar spine wo con Urgent 10/12/21 14:55 CT abd pelvis IV con only Routine Laboratory Results WBC 6.56 K/ul (4.8-10.8) 10/13/21 06:43 RBC 4.59 M/uL (4.63-6.08) L 10/13/21 06:43 Hgb 12.2 g/dl (14.0-18.0) L 10/13/21 06:43 Hct 37.7 % (40.1-51.0) L 10/13/21 06:43 MCV 82.1 fL (80.0-100.0) 10/13/21 06:43 MCH 26.6 pg (25.0-34.0) 10/13/21 06:43 MCHC 32.4 g/dL (32.0-36.0) 10/13/21 06:43 RDW Std Deviation 45.0 fL (36.4-46.3) 10/13/21 06:43 RDW Coeff of Luis Angel 15.0 % (11.5-14.5) H 10/13/21 06:43 Plt Count 188 K/uL (130-400) 10/13/21 06:43 MPV 9.3 fL (9.4-12.4) L 10/13/21 06:43 Immature Gran % (Auto) 0.3 % 10/11/21 06:21 Neut % (Auto) 72.4 % 10/11/21 06:21 Lymph % (Auto) 11.3 % 10/11/21 06:21 [place] % (Auto) 13.5 % 10/11/21 06:21 Eos % (Auto) 2.2 % 10/11/21 06:21 Baso % (Auto) 0.3 % 10/11/21 06:21 Neut # (Auto) 5.20 K/uL (1.4-6.5) 10/11/21 06:21 Lymph # (Auto) 0.81 K/uL (1.2-3.4) L 10/11/21 06:21 [place] # (Auto) 0.97 K/uL (0.24-0.82) H 10/11/21 06:21 Eos # (Auto) 0.16 K/uL (0-0.50) 10/11/21 06:21 Baso # (Auto) 0.02 K/uL (0-0.2) 10/11/21 06:21 Immature Gran # (Auto) 0.02 K/uL (0.00-0.02) 10/11/21 06:21 ESR 35 mm/hr (0-20) H 10/10/21 06:45 Sodium 139 mmol/L (136-145) 10/16/21 06:41 Potassium 4.0 mmol/L (3.5-5.1) 10/16/21 06:41 Chloride 108 mmol/L (98-107) H 10/16/21 06:41 Carbon Dioxide 25 mmol/L (21-32) 10/16/21 06:41 Anion Gap 6 (3-11) 10/16/21 06:41 BUN 25 mg/dl (6-23) H 10/16/21 06:41 Creatinine 0.92 mg/dl (0.6-1.4) 10/16/21 06:41 Est Cr Clr Drug Dosing 61.9 ml/min 10/16/21 06:41 Est GFR ( Amer) 92.0 ml/min 10/16/21 06:41 Est GFR (Non-Af Amer) 79.4 ml/min 10/16/21 06:41 BUN/Creatinine Ratio 27.2 (10-20) H 10/16/21 06:41 Glucose 96 mg/dl (70-99(Fasting)) 10/16/21 06:41 Calcium 8.8 mg/dl (8.5-10.1) 10/16/21 06:41 Phosphorus 2.8 mg/dl (2.5-4.9) D 10/13/21 06:43 Magnesium 2.1 mg/dl (1.7-2.4) 10/16/21 06:41 Total Bilirubin 1.1 mg/dl (0.2-1.0) H 10/08/21 16:27 AST 15 U/L (13-39) 10/08/21 16:27 ALT 13 U/L (7-52) 10/08/21 16:27 Alkaline Phosphatase 54 U/L (34-104) 10/08/21 16:27 Troponin I High Sens 12.6 pg/ml (0-20) 10/08/21 16:27 C-Reactive Protein 20.21 mg/dl (0-0.5) H 10/10/21 06:45 Total Protein 6.3 gm/dl (6.0-8.3) 10/08/21 16:27 Albumin 3.6 gm/dl (3.4-5.0) 10/08/21 16:27 Globulin 2.7 gm/dl (2.5-4.0) 10/08/21 16:27 Albumin/Globulin Ratio 1.3 (0.9-2) 10/08/21 16:27 TSH 0.563 uIu/ml (0.300-4.500) 10/08/21 16:27 Urine Color Yellow 10/11/21 Unknown Urine Appearance Clear (Clear) 10/11/21 Unknown Urine pH 6.0 (4.5-7.5) 10/11/21 Unknown Ur Specific [place] 1.010 (1.000-1.030) 10/11/21 Unknown Urine Protein Negative (Negative) 10/11/21 Unknown Urine Glucose (UA) Negative (Negative) 10/11/21 Unknown Urine Ketones Negative (Negative) 10/11/21 Unknown Urine Blood 2+ (Negative) H 10/11/21 Unknown Urine Nitrite Negative (Negative) 10/11/21 Unknown Urine Bilirubin Negative (Negative) 10/11/21 Unknown Urine Urobilinogen Negative (Negative) 10/11/21 Unknown Ur Leukocyte Esterase Negative (Negative) 10/11/21 Unknown Urine WBC (Auto) 1-5 /hpf (0-5) 10/11/21 Unknown Urine RBC (Auto) 10-30 /hpf (0-4) H 10/11/21 Unknown U Hyaline Cast (Auto) 0 /lpf (0-5) 10/11/21 Unknown U Epithel Cells (Auto) 0-5 /lpf (0-5) 10/11/21 Unknown Urine Bacteria (Auto) Negative (Negative) 10/11/21 Unknown Enterobacterales (PCR) DETECTED (NotDetected) A 10/09/21 04:33 E. coli (PCR) DETECTED (NotDetected) A 10/09/21 04:33 SARS-CoV-2, RNA, NAAT NEGATIVE (NEGATIVE) 10/08/21 Unknown mcr-1 [place]in Res Gene PCR Not Detected (NotDetected) 10/09/21 04:33 blaIMP Car res Gene PCR Not Detected (NotDetected) 10/09/21 04:33 KPC-Carbap Res Gene PCR Not Detected (NotDetected) 10/09/21 04:33 blaNDM Car Res Gene PCR Not Detected (NotDetected) 10/09/21 04:33 OXA-48 Carbapenem Resis Gene (PCR) Not Detected (NotDetected) 10/09/21 04:33 blaVIM Car Res Gene PCR Not Detected (NotDetected) 10/09/21 04:33 CTX-M Gene Resistance (PCR) Not Detected (NotDetected) 10/09/21 04:33 Bld Cult ID Panel PCR See PCR Comment (NotDetected) 10/09/21 04:33 Impressions Chest X-Ray 10/08/21 16:42 XR chest 1V portable CLINICAL HISTORY: weakness TECHNIQUE: Single frontal radiograph of the chest was obtained. Comparison: Comparison is made to chest radiograph 05/14/2018 FINDINGS: Spinal stimulator is unchanged from prior exam. The aorta is tortuous. The remainder of the cardiomediastinal silhouette is unremarkable. The lungs are clear. No evidence of pleural effusion or pneumothorax. IMPRESSION: No acute chest disease. ACT 112: Negative or not required by law. Electronically signed by: Andrzej Méndez M.D. 10/08/2021 5:[address] 10/08/21 16:58 CT SCAN OF THE CERVICAL SPINE CLINICAL HISTORY: Fall. COMPARISON STUDY: CT of the cervical spine dated 12/26/2017. TECHNIQUE: CT scan of the cervical spine is performed from the skull base to the upper thoracic spine. Images are reviewed in the axial, sagittal, and coronal planes. IV contrast was not administered for this examination. A dose lowering technique was utilized adhering to the principles of ALARA. CT DOSE: 1027.03 mGy.cm FINDINGS: Skeletal structures: The skeletal structures are osteopenic. There is no evidence of fracture or subluxation involving the cervical spine. Vertebral body height and alignment are maintained. 5 mm of anterolisthesis is noted at C7-T1. There is straightening of cervical lordosis. Anterior osteophytes are seen throughout. There is postoperative change from anterior spinal fusion at C3-C4. The odontoid process and lateral masses are intact. Cystic change in noted at the base of the odontoid process. The atlantoaxial articulation is preserved noting productive degenerative change. The spinous processes appear intact. There is moderate to advanced multilevel cervical spondylosis. Uncovertebral and facet arthropathy contribute to neural foraminal narrowing at most levels. Intervertebral discs: There has been discectomy at C3-C4. Advanced disc space narrowing is seen at C4-C5, C5-C6, and C6-C7 with associated endplate sclerosis. Moderate disc space narrowing is noted at C2-C3 and C7-T1. Central canal: Widely patent. Soft tissues: The prevertebral and paraspinous soft tissues are within normal limits. There is atherosclerotic calcification of the carotid bulbs. Calvarium: The visualized calvarium at the skull base appears intact. Brain parenchyma: Partially visualized brain parenchyma at the skull base is within normal limits. Sinuses and mastoids: The visualized paranasal sinuses are clear. The mastoid air cells are well pneumatized. Lung apices: Clear as visualized. IMPRESSION: 1. There is no evidence of fracture or subluxation involving the cervical spine. 2. Osteopenia with postoperative and spondylotic change as above. ACT 112: Negative or not required by law. Electronically signed by: Brad Gonzalez M.D. 10/08/2021 5:[address] 10/08/21 16:58 CT head/brain wo con CLINICAL HISTORY: fall, anticoagulated Technique: Contiguous axial CT images of the head were acquired from the base of the skull to the vertex without intravenous contrast administration. Images were viewed in brain, subdural and bone windows. Automated dose lowering techniques and/or adjustment according to patient size were utilized for this exam. Comparison: Comparison is made to CT head 05/14/2018 Findings: The ventricles, basal cisterns, and cerebral sulci are normal. There is no acute intracranial hemorrhage or evidence of acute territorial infarction. Neither mass effect, shift of the midline structures, nor abnormal extra-axial fluid collections are shown. Imaged portions of the paranasal sinuses and mastoid air cells are clear. The orbits appear normal. There are no acute fractures of the calvaria. Soft tissue swelling is seen in the left frontal region. Impression: No acute intracranial hemorrhage or skull fractures. Scalp swelling is seen in the left frontal region. ACT 112: Negative or not required by law. Electronically signed by: Andrzej Méndez M.D. 10/08/2021 5:[address] 10/09/21 10:39 CT lumbar spine wo con HISTORY: 76 years-old Male Fack pain. fever acute low back pain with fever COMPARISON: CT lumbar spine 07/30/2019 TECHNIQUE: Multiple axial CT images of the lumbar spine were obtained without the use of IV contrast. A dose lowering technique was used consistent with the principals of ALARA. FINDINGS: Study is motion degraded. Surgical clips of the pelvis. A battery pack is noted within the left lower back subcutaneous tissues with a single partially imaged leads extending superiorly outside the [id number]. Infrahepatic IVC filter. Atherosclerosis of the abdominal aorta with tortuosity. Saccular aneurysmal dilation without rupture is noted involving the distal infrarenal abdominal aorta measuring up to 2.4 x 3.9 cm. Urothelial thickening of the collecting systems with bilateral moderate perinephric stranding. Cysts of the kidneys are also again noted. 34 degrees levoscoliosis measured from L1-L3. No acute fracture or subluxation identified. Severe multilevel intervertebral disc space narrowing with advanced spondylitic spurring and facet arthrosis redemonstrated. There is degenerative partial bony fusion of the L1-L2 level which is unchanged. Multilevel vacuum disc phenomenon. Irregularity of the L3-L4 and L4-L5 endplates has progressively worsened from the comparison study. There is no significant paravertebral edema at this interspace. Laminectomy changes at L4-L5. Multilevel central canal or neural foraminal narrowing is better assessed by MRI. IMPRESSION: 1. No acute fracture or subluxation identified. 2. 34 degrees levoscoliosis with advanced intervertebral disc space narrowing, spondylitic spurring and facet arthrosis. 3. Endplate irregularity at the L3-L4 and L4-L5 levels has progressively worsened from the 07/30/2019 study. These findings are favored to be degenerative. Discitis/osteomyelitis is considered much less likely. 4. Urothelial thickening is noted with bilateral perinephric inflammatory stranding. Findings should be correlated with urinalysis to exclude an ascending infection. 5. Saccular aneurysmal dilation of the infrarenal abdominal aorta, 3.9 cm without evidence of rupture. ACT 112: Negative or not required by law. The above report was generated using voice recognition software. It may contain grammatical, syntax or spelling errors. Electronically signed by: Servando Hammond M.D. 10/09/2021 12:35 PM Abdomen/Pelvis CT 10/12/21 14:[address] WITH IV CONTRAST CT DOSE: 494.55 mGy.cm HISTORY: Acute generalized abdominal pain with bacteremia E coli bacteremia- look for intraabd source TECHNIQUE: Multiaxial CT images of the abdomen and pelvis were performed following the IV administration of 93 cc of Optiray, A dose lowering technique was utilized adhering to the principles of ALARA. COMPARISON STUDY: CT lumbar spine 10/09/2021, CT abdomen and pelvis 08/11/2016 FINDINGS: Cardiomegaly with coronary artery calcifications. Mild right hemidiaphragmatic elevation with subsegmental bibasilar atelectasis. No pneumatosis or pneumoperitoneum. Unremarkable spleen, pancreas and adrenal glands. There is mild intrahepatic and extrahepatic biliary ductal dilation which is similar to the prior exam. Distended gallbladder without evidence of acute cholecystitis. Probable hepatic cyst on image 16 measures 2.3 cm. Additional probable subcentimeter cyst within the right hepatic lobe on image 27. Patent portal vein. Cysts within the kidneys measure up to 3.7 cm and the left approximately 2.9 cm on the right. There is a 3.5 cm area of decreased heterogeneous enhancement within the superior pole right kidney on image 114 series 3 with surrounding perinephric inflammatory stranding. 3 mm nonobstructing calculus of the inferior pole right kidney. No ureteral calculi or hydronephrosis identified. Partial distention of the urinary bladder with mild wall thickening. Pelvic structures are suboptimally visualized secondary to streak artifact from the bilateral hip total joint arthroplasties. The prostate appears to be surgically absent. Atherosclerosis of the aorta with tortuosity. Saccular aneurysm arising from the left aspect of the infrarenal abdominal aorta on image 187 measures 2.9 x 2.1 cm. On the 2017 comparison study this measured approximately 2.4 x 2.0 cm. No evidence of aneurysm rupture. Small lipoma of the duodenum near the ampulla redemonstrated. Trace nonspecific free pelvic fluid. Extensive colonic diverticulosis. Moderate fecal retention. The visualized appendix is noninflamed. Degenerative changes of the spine and pelvis. Lumbar levoscoliosis. A neural stimulator device is present with distal tip of the leads extending superiorly outside the [id number]. The imaged portions of the leads appear intact. IMPRESSION: 1. No bowel obstruction or bowel wall thickening. 2. Heterogeneously decreased enhancement involving the superior pole right kidney with adjacent perinephric inflammatory stranding is suggestive of acute pyelonephritis. A one month follow-up renal ultrasound is recommended to exclude the less likely possibility of an underlying lesion. 3. Nonobstructing right renal calculus. 4. Unchanged intrahepatic and extrahepatic biliary ductal dilation. 5. 2.9 x 2.1 cm saccular aneurysm of the infrarenal abdominal aorta has increased in size from the 2017 comparison. No evidence of aneurysm rupture. 6. Additional findings as above. ACT 112: Negative or not required by law. The above report was generated using voice recognition software. It may contain grammatical, syntax or spelling errors. Electronically signed by: Servando Hammond M.D. 10/12/2021 5:27 PM Hospital Course (1) E coli bacteremia: (2) Traumatic ecchymosis of face: Plan A 76-year-old male with past medical history significant for abdominal aortic aneurysm, hypertension, prostate cancer, bladder cancer, thrombocytopenia, osteoporosis, lumbar spinal stenosis, lumbar spinal fusion surgery, post- laminectomy syndrome, spinal cord stimulator, cervical spinal fusion surgery, GERD, chronic left foot drop, ambulatory dysfunction, status post IVC filter, history of pulmonary embolism, and chronic right arm tremor,presented to the ED on 10/08 with confusion at home which is now resolved. Also had fall at home on 10/05. Found to have E coli bacteremia. Imaging studies as below CT Lumbar spine 1. No acute fracture or subluxation identified. 2. 34 degrees levoscoliosis with advanced intervertebral disc space narrowing, spondylitic spurring and facet arthrosis. 3. Endplate irregularity at the L3-L4 and L4-L5 levels has progressively worsened from the 07/30/2019 study. These findings are favored to be degenerative. Discitis/osteomyelitis is considered much less likely. 4. Urothelial thickening is noted with bilateral perinephric inflammatory stranding. Findings should be correlated with urinalysis to exclude an ascending infection. 5. Saccular aneurysmal dilation of the infrarenal abdominal aorta, 3.9 cm without evidence of rupture CT head - No acute intracranial hemorrhage or skull fractures. Scalp swelling is seen in the left frontal region. CT pelvis 10/12 1. No bowel obstruction or bowel wall thickening. 2. Heterogeneously decreased enhancement involving the superior pole right kidney with adjacent perinephric inflammatory stranding is suggestive of acute pyelonephritis. A one month follow-up renal ultrasound is recommended to exclude the less likely possibility of an underlying lesion. 3. Nonobstructing right renal calculus. 4. Unchanged intrahepatic and extrahepatic biliary ductal dilation. 5. 2.9 x 2.1 cm saccular aneurysm of the infrarenal abdominal aorta has increased in size from the 2017 comparison. No evidence of aneurysm rupture. E coli bacteremia, likely due to right pyelonephritis although UA unremarkable - blood clx 8/19 positive for pansensitive Ecoli in 2/4 bottles, repeat blood clx 8/19 negative. leucocytosis resolved. Fever resolved. - CT A/P which showed right sided pyelonephritis. Recommended 1 month follow up ultrasound to r/o underlying lesion - Seen by ID 10/13- recommendations noted. Currently On rocephin D7/14. Changed to amoxicillin 500 mg tid at discharge per ID recommendation for a total of 2 weeks from 10/09. Probiotic while on ABx therapy. - Recommended repeat renal ultrasound in a month to exclude possibility of underlying lesion Afib with RVR, new onset- challenging to control despite uptitration of metoprolol and digoxin. Digoxin started this admission was discontinued, hence underwent successful DCCV today - Toprol changed to 12.5 bid per cardiology due to sinus bradycardia - Continue xarelto - Echo 10/11 with EF 65-0%, no regional WMA, no signficant valvular heart disease. Fall with facial ecchymosis- No syncope. PT recommended rehab but he continues to decline. Confusion resolved. now AAOx4. Discharging on home PT/OT per his preference. Infrarenal AAA- 3.9 cm incidental finding. Recommend OP follow up with PCP Chronic back pain, DDD- continue home dose of oxycodone, baclofen, gabapentin HTN- continue lisinopril, toprol. BP stable PMR- on prednisone low dose Prostate cancer- On zytiga and lupron shot. F/u with urology Urinary incontinence- seen by urology- OP follow up recommended H/o PE s/p IVC filter- on Xarelto He is comfortable and stable for discharge. Home PT/OT arranged per CM. Home Health Attestation I certify that this patient is under my care and that I, or a physicians housing assistant working with me, had a face to-face encounter that meets the home health [id number]-er-levy encounter requirements with this patient. The encounter with the patient was in whole, or in part, for the following medical condition, which is the primary reason for home health care (list medical condition): I certify that, based on my findings, the following services are medically necessary home health services: My clinical findings support the need for the above services because: Further, I certify that my clinical findings support that this patient is homebound (i.e. absences from home require considerable and taxing effort and are for medical reasons or islam services or infrequently or of short duration when for other reasons) because: Certification for Home Health Services: Based on the above findings, I certify that this patient is confined to the home and needs intermittent shelter care, physical therapy and/or speech therapy or continues to need occupational therapy. The patient is under my care, and I have initiated the establishment of the plan of care. This patient will be followed by a physician who will periodically review the plan of care. Total Time Total Time Spent Total Time Spent (In Minutes): 45 Discharge Plan Discharge Items Patient Disposition: Home - Home Health Services Reason For Visit: FALL Discharge Diagnosis: E coli bacteremia due to acute right pyelonephritis, A fib with RVR s/p DCCV Activity: Resume your previous activity Non-emergency contact: Primary Care Provider Call non-emergency contact if: you have any medication questions, your symptoms worsen, your pain is concerning for you and you have a fever Follow-up/Referrals: Clifford Gandhi, [Primary Care Provider] - Diet: Heart Healthy Addtl Attending Provider Instructions: Continue amoxicillin 1 tab three times daily for 1 more week starting tomorrow morning Take probiotics with the antibiotics Your toprol has been changed to 12.5 mg (1/2 tab) twice daily per cardiology Continue your xarelto Recommend 1 month follow of the kidneys to rule out underlying lesion Recommend regular follow up of your abdominal aneurysm with your family doctor to make sure it is not enlarging. Follow up with your family doctor, cardiology and urology Pending Studies at Discharge: No Stand-Alone Forms: My [facility], Smoking Cessation Medications and DC Order Prescriptions: New lisinopril 10 mg Tablet 10 mg PO QAM Qty: 30 0RF metoprolol succinate [Toprol XL] 25 mg tablet extended release 24 hr 12.5 mg PO BID Qty: 30 0RF amoxicillin 500 mg capsule 500 mg PO Q8H Qty: 21 0RF Saccharomyces boulardii 250 mg capsule 250 mg PO BID Qty: 14 0RF Continued oxycodone 10 mg tablet 10 mg PO .COMPLEX Rx Instructions: 10 mg orally take 2 tab in the morning one tab at noon and 2 tab in the evening; abiraterone [Zytiga] 250 mg Tablet 1,000 mg PO QAM docusate sodium 50 mg Capsule 50 mg PO QAM calcium carbonate-vitamin D3 [Calcium 500 With D] 500 mg(1,250mg) -400 unit Tablet 1 tab PO QAM Lupron Depot (6 Month) 45 mg Syringe Kit 1 dose IM UD Rx Instructions: [id number] pregabalin [Lyrica] 300 mg Capsule 300 mg PO BID travoprost [Travatan Z] 0.004 % Drops 1 drp OPB HS timolol maleate (PF) 0.5 % Dropperette 1 drp OPB BID Xarelto 20 mg Tablet 20 mg PO QAM Qty: 0 0RF prednisone 5 mg tablet 5 mg PO QAM baclofen 10 mg tablet 20 mg PO QID gabapentin 100 mg capsule 100 mg PO HS celecoxib 100 mg capsule 100 mg PO BID Discharge Orders: Discharge Order (Routine); Ordered 10/16/21 Ordered By: Luis Carlos Henry/Other Patient Handouts: Treating Incontinence in Men, Electrical Ca rdioversion Admission Data Admit Date/Time: 10/09/21 00:16 Attending Provider: Luis Carlos Joiner Admit Provider: Ashish Nick Primary Care Provider: Clifford Gandhi Other Providers: Sami Sanchez ; Dilshad Romano ; Miran Garcia ; Tomy Mitchell I. ; Jarod Rosenberg II ; Phuong Jeffries ; Jordy Ramirez ; Tres Vaughn ; Shay Rich ; Cesario Nazario ; [facility] ; Clifford Balderas ; Hanny Agarwal ; Bertha Mancia ; Pia Cardoza ; Loni Jacobsen ; Travon Velazco ; Chapincito Hardwick ; Delfino Gibbons ; Stefan Hogan ; Sandra Hogan ; Hu Roper ; Ashley Lee ; Carlos A Hyman ; Rome Salvador ; Guille Celeste ; Wilbert Clifton ; Ladonna Guallpa ; Jordy Becker ; Mitzy Corea ; Petra Becker ; Musa Jane ; Daja Vivar ; Roman Mckeon ; Laney Chaidez ; Monserrat Fernando ; Olga De La Cruz ; Viraj Carson ; Shanti Whitman ; Minoo York ; Simona Garcia ; Jerri Parham ; Afshin Parham V ; John Lovelace ; Bertha Luevano ; Enio Loaiza ; Lillian Bryant ; Afshin Daily ; Estevan Guallpa ; Andrzej Oneill ; Amanda Milligan ; Karely Mota ; Afshin Beasley ; Aaron Santana ; Junior Clifton ; Roxana Gil ; Will Meehan ; Brooklyn Craft ; Eric Baker ; Will Mckeon ; Travon Shah Jr ; Ale Smith ; Olga Moore ; Tammy Keith ; Viraj Ray ; Loni Jiménez ; Stefan Ray ; Wang Nj I. ; Rosanne Heard Other Interventions: Discharge Summary Assessment (RN) Last Done: 10/16/21 10:35
== END 2021-10-16 12:25 | disposition home health service (06) | DRG 309 ==
LOC: ED 16:00 → SUATTDRO 10-09 00:16 → 2E 10-09 00:16

== ENCOUNTER 2021-10-17 10:26 | Inpatient (IN) ==
[2021-10-17] MEDS ORDERED: SODIUM CHLORIDE 0.9% 500 ML IV STA (10:35)
--- NOTE | 2021-10-17 10:40 | Emergency Department Note ---
Impression & Plan OMID (acute kidney injury) ADMIT ED Provider Note HPI: The patient is a 76-year-old gentleman with history of chronic lower back pain, paroxysmal atrial fibrillation on anticoagulation, presents to the emergency department with a chief complaint of headaches. Patient was discharged from the hospital yesterday after mechanical fall which he did injure his head, during that visit he was noted to have atrial fibrillation with RVR which was difficult to control, ultimately underwent cardioversion and is on anticoagulation with Xarelto. Patient states that he has had some shooting pains in his head since earlier today, he denies any loss of consciousness, denies any chest pain or shortness of breath. On arrival here to the ED the patient is in no acute distress, he is alert, he is noted to have large contusion with hematoma to left forehead consistent with his previous presentation and admission. Patient states this is from a fall in his bathroom. He denies any new falls since his discharge. ROS: -Neuro: Headache *10 point review systems was conducted and is otherwise negative unless stated above *Outpatient medications and allergy history reviewed PE: General: Alert, NAD frail-appearing HEENT: Large area of ecchymosis to the forehead and over the nasal bridge with left forehead hematoma consistent with patient's recent injury Eyes: Extraocular eye movement is intact, no scleral erythema Pulmonary: Clear to auscultation bilaterally, no wheezing Cardio: Regular rate and rhythm GI: Abdomen is soft, nontender : No suprapubic tenderness MSK: No evidence of trauma or malformation of the extremities, no edema Skin: No evidence of rash Neuro: Alert, weakness of the left lower extremity at baseline, otherwise no focal deficits noted Psychiatric: Cooperative environmental monitoring 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 EKG does not show any acute ischemic changes, patient is noted to be in sinus rhythm. Lab work otherwise shows slight elevation of the patient's troponin at 20, mild acute kidney injury with creatinine of 1.4 with baseline normal upon discharge recently. Patient denies any chest pain or shortness of breath in regards to his elevated troponin level, will trend upon admission. We will avoid anticoagulation at this time given his lack of symptoms. On my reassessment the patient is resting in bed, he is hemodynamically stable but he is frail-appearing and apparently has not been doing well at home since his discharge yesterday, his later arrives at the bedside to provide further history and she states that she is having difficulty taking care of him at home secondary to his ambulatory issues and inability to home. In addition patient has been having some headaches since his fall which I suspect might be postconcussive in nature. Case was discussed with the on-call admitting hosp italist service for [facility] following my discussion with the midlevel provider, Amanda Paul, and patient was admitted to the hospitalist service for further care. Ultimately, he may require placement for physical rehabilitation. Diagnosis: 1. Ambulatory dysfunction/generalized weakness 2. Acute kidney injury 3. 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 The infrarenal lesion currently measures 33 mm in maximum diameter from the center line, unchanged in size when compared to the most recent prior examination of 08/11/2016 but is enlarged when compared to more remote examination of 11/13/2014. The juxtarenal lesion appears unchanged when compared to prior examination of 11/13/2014 measuring 26 mm in maximum axial diameter on both examinations." Chronic back pain LEFT LEG Deep vein thrombosis S/P LEG INJURY 2014 Glaucoma Omar filter in place 2014 H/O prostate cancer S/P PROSTATECTOMY 2006 History of bladder cancer s/p TURBT 06/2016 History of ITP 2014, tx with prednisone Malignant neoplasm of urinary bladder On anticoagulant therapy Osteoarthritis Overactive bladder Prostate cancer Pulmonary embolism FROM DVT 2014 Sleep apnea CPAP Transient ischemic attack (TIA) HX, COUPLE YEARS AGO, UNCLEAR IF ACTUAL TIA. PT ON XARELTO NOW FOR DVT/PE HX. Surgical History H/O shoulder surgery RIGHT History of bladder surgery TURBT 06/2016 History of laminectomy History of prostatectomy S/P PROSTATE CANCER 2005- s/p radiation and prostatectomy. Recurrent disease found in lymph node 2014. On hormone therapy. History of total hip arthroplasty R/L Hx of cervical spine surgery ANTERIOR Family History Mother Alzheimer disease Father Aortic aneurysm Other Family history non-contributory Social History Smoking Status: Current every day smoker Tobacco Type: Cigars Cigarettes Per Day: 1 PACK OF MINI-CIGARS PER MONTH; Second Hand Exposure: No; Hx Alcohol Use: No Hx Substance Use: No Preferred Language: Yemeni Communication Ability: Effective Microfiche Duplicator Required: No Beliefs That Will Affect Care: None marital status: Current Living Situation: Spouse Feels Safe at Home: Yes Assistive Devices: Walker Allergies Allergies Allergy/AdvReac Type Severity Reaction Status Date / Time adalimumab Allergy Severe GI SYMPTOMS Verified 10/08/21 16:58 mirabegron Allergy Intermediate NEUROLOGICAL Verified 10/08/21 16:58 SYMPTOMS/STOMACH PAINS methotrexate Allergy Unknown Blood Verified 10/08/21 16:58 platelets drop. naproxen Allergy Unknown dilusional Verified 10/08/21 16:58 Home Meds Home Medications Medication Instructions Recorded Confirmed abiraterone 250 mg tablet (Zytiga) 1,000 mg PO QAM 01/26/18 10/17/21 calcium carbonate 500 mg-vitamin 1 tab PO QAM 01/26/18 10/17/21 D3 10 mcg (400 unit) tablet (Calcium 500 With D) docusate sodium 50 mg capsule 50 mg PO QAM 01/26/18 10/17/21 leuprolide acetate (6 month) 45 mg 1 dose IM UD 01/26/18 10/17/21 intramuscular syringe kit (Lupron Depot) pregabalin 300 mg capsule (Lyrica) 300 mg PO BID 01/26/18 10/17/21 timolol maleate (PF) 0.5 % eye 1 drp OPB BID 01/26/18 10/17/21 drops in a dropperette travoprost 0.004 % eye drops 1 drp OPB HS 01/26/18 10/17/21 (Travatan Z) oxycodone 10 mg tablet 10 mg PO .COMPLEX 09/24/21 10/17/21 prednisone 5 mg tablet 5 mg PO QAM 09/24/21 10/17/21 baclofen 10 mg tablet 20 mg PO QID 10/08/21 10/17/21 celecoxib 100 mg capsule 100 mg PO BID 10/08/21 10/17/21 gabapentin 100 mg capsule 100 mg PO HS 10/08/21 10/17/21 Previous Rx's Medication Instructions Recorded rivaroxaban 20 mg tablet (Xarelto) 20 mg PO QAM #0 tabs 02/17/18 Saccharomyces boulardii 250 mg 250 mg PO BID #14 caps 10/16/21 capsule amoxicillin 500 mg capsule 500 mg PO Q8H #21 caps 10/16/21 lisinopril 10 mg tablet 10 mg PO QAM #30 tabs 10/16/21 metoprolol succinate 25 mg 12.5 mg PO BID #30 tabs 10/16/21 tablet,extended release 24 hr (Toprol XL) Results & Data (ED) Vital Signs Vital Signs - 24 hr 10/17/21 10:26 10/17/21 10:52 10/17/21 11:31 Temperature 37 C Temperature Source Oral Pulse Rate 54 L 54 L 50 L Pulse Rate from SpO2 Sensor Pulse Rhythm Regular Respiratory Rate 14 14 19 Respiratory Effort / Characteristics Non-Labored Respiratory Depth Normal Respiratory Pattern Regular Blood Pressure 148/99 H Blood Pressure Mean 115 Pulse Oximetry 95 95 Oxygen Delivery Method Room Air Room Air Sepsis Recent Fever Within 48 Hours No Sepsis New/Unexplained Change in Mental Status N/A Sepsis Action Taken by Nursing No Action Required 10/17/21 11:31 10/17/21 12:01 10/17/21 12:01 Temperature Temperature Source Pulse Rate 62 Pulse Rate from SpO2 Sensor 53 L Pulse Rhythm Respiratory Rate 15 Respiratory Effort / Characteristics Respiratory Depth Respiratory Pattern Blood Pressure 166/89 H 151/74 H Blood Pressure Mean 114 99 Pulse Oximetry 98 Oxygen Delivery Method Sepsis Recent Fever Within 48 Hours Sepsis New/Unexplained Change in Mental Status Sepsis Action Taken by Nursing 10/17/21 12:31 10/17/21 12:31 10/17/21 13:00 Temperature Temperature Source Pulse Rate 55 L Pulse Rate from SpO2 Sensor 55 L Pulse Rhythm Respiratory Rate 15 Respiratory Effort / Characteristics Respiratory Depth Respiratory Pattern Blood Pressure 164/92 H 171/76 H Blood Pressure Mean 116 107 Pulse Oximetry 99 Oxygen Delivery Method Sepsis Recent Fever Within 48 Hours Sepsis New/Unexplained Change in Mental Status Sepsis Action Taken by Nursing 10/17/21 13:00 10/17/21 13:31 10/17/21 13:31 Temperature Temperature Source Pulse Rate 53 L 62 Pulse Rate from SpO2 Sensor 48 L Pulse Rhythm Respiratory Rate 32 H 31 H Respiratory Effort / Characteristics Respiratory Depth Respiratory Pattern Blood Pressure 154/79 H Blood Pressure Mean 104 Pulse Oximetry 63 L Oxygen Delivery Method Sepsis Recent Fever Within 48 Hours Sepsis New/Unexplained Change in Mental Status Sepsis Action Taken by Nursing Laboratory Data Result diagrams: 10/17/21 10:50 10/17/21 10:50 Lab Results 10/17/21 10/17/21 10/17/21 Range/Units 10:50 10:50 13:38 WBC 7.28 (4.8-10.8) K/ul RBC 4.19 L (4.63-6.08) M/uL Hgb 11.2 L (14.0-18.0) g/dl Hct 34.9 L (40.1-51.0) % MCV 83.3 (80.0-100.0) fL MCH 26.7 (25.0-34.0) pg MCHC 32.1 (32.0-36.0) g/dL RDW Std Deviation 45.8 (36.4-46.3) fL RDW Coeff of Luis Angel 15.2 H (11.5-14.5) % Plt Count 287 (130-400) K/uL MPV 9.5 (9.4-12.4) fL Immature Gran % (Auto) 1.5 % Neut % (Auto) 74.3 % Lymph % (Auto) 12.8 % [place] % (Auto) 6.5 % Eos % (Auto) 4.5 % Baso % (Auto) 0.4 % Neut # (Auto) 5.41 (1.4-6.5) K/uL Lymph # (Auto) 0.93 L (1.2-3.4) K/uL [place] # (Auto) 0.47 (0.24-0.82) K/uL Eos # (Auto) 0.33 (0-0.50) K/uL Baso # (Auto) 0.03 (0-0.2) K/uL Immature Gran # (Auto) 0.11 H (0.00-0.02) K/uL Sodium 139 (136-145) mmol/L Potassium 4.9 D (3.5-5.1) mmol/L Chloride 106 (98-107) mmol/L Carbon Dioxide 28 (21-32) mmol/L Anion Gap 5 (3-11) BUN 35 H (6-23) mg/dl Creatinine 1.42 H D (0.6-1.4) mg/dl Est Cr Clr Drug Dosing 41.9 ml/min Est GFR ( Amer) 54.4 ml/min Est GFR (Non-Af Amer) 47.0 ml/min BUN/Creatinine Ratio 24.6 H (10-20) Glucose 102 H (70-99(Fasting)) mg/dl Calcium 8.9 (8.5-10.1) mg/dl Total Bilirubin 0.4 (0.2-1.0) mg/dl AST 13 (13-39) U/L ALT 10 (7-52) U/L Alkaline Phosphatase 57 (34-104) U/L Troponin I High Sens 20.1 H (0-20) pg/ml Total Protein 6.3 (6.0-8.3) gm/dl Albumin 3.5 (3.4-5.0) gm/dl Globulin 2.8 (2.5-4.0) gm/dl Albumin/Globulin Ratio 1.3 (0.9-2) Lipase 30 (11-82) U/L SARS-CoV-2, RNA, NAAT NEGATIVE (NEGATIVE) Administered Medications Discontinued Medications Diphenhydramine HCl (Diphenhydramine 50 Mg/Ml Vial) 12.5 mg IV ONCE ONE Stop: 10/17/21 12:59 Last Admin: 10/17/21 13:35 Dose: Not Given Documented By: MONICA Sodium Chloride (Nss) 500 mls @ 999 mls/hr IV .Q31M STA Stop: 10/17/21 11:05 Last Infusion: 10/17/21 12:19 Dose: 0 mls/hr Documented By: Admin: 10/17/21 11:30 Dose: 999 mls/hr Documented By: MONICA Metoclopramide HCl (Metoclopramide Hcl Inj 5 Mg/Ml 2 Ml Vial) 5 mg IV ONE ONE Stop: 10/17/21 12:59 Last Admin: 10/17/21 13:35 Dose: Not Given Documented By: MONICA Imaging Data Radiologist's Impression: Chest X-Ray 10/17/21 10:36 SINGLE VIEW CHEST CLINICAL HISTORY: Atypical chest pain. FINDINGS: An AP, portable, upright chest radiograph is compared to study dated 10/08/2021 and correlated with chest CT dated 05/15/2015. The examination is degraded by portable technique and apical lordotic positioning. The heart is enlarged noting atherosclerotic calcification of the thoracic aorta. The pulmonary vascularity is noncongested. Chronic residual thickening is similar previous. There is chronic elevation of the right hemidiaphragm with bibasilar scarring/atelectasis. The lungs and pleural spaces are otherwise clear. No pneumothorax is seen. The skeletal structures are osteopenic. The bony thorax is grossly intact. Fusion hardware is noted in the lower cervical spine. Intrathecal leads project over the thoracic spine. IMPRESSION: Cardiomegaly with no acute cardiopulmonary abnormality identified. ACT 112: Negative or not required by law. Electronically signed by: Brad Gonzalez M.D. 10/17/2021 12:[address] 10/17/21 10:36 CT SCAN OF THE BRAIN WITHOUT IV CONTRAST CLINICAL HISTORY: Headache. COMPARISON STUDY: CT of the brain dated 10/08/2021. TECHNIQUE: Unenhanced axial CT scan of the brain is performed from the vertex to the skull base. A dose lowering technique was utilized adhering to the principles of ALARA. CT DOSE: 638.84 mGy.cm FINDINGS: Brain parenchyma: There is age-related involutional change noting moderate subcortical and periventricular microangiopathic disease. There is no hemorrhage, mass effect, or evidence of acute territorial ischemia by CT criteria. Man-white matter differentiation is preserved. No extra-axial fluid collection is seen. Ventricles, sulci, cisterns: Prominent secondary to involutional change. Intracranial vasculature: There is atherosclerotic calcification of the cavernous carotid and vertebral arteries. Calvarium: Unremarkable. Soft tissues: There is a left frontal scalp hematoma. Sinuses and mastoids: The visualized paranasal sinuses are clear. The mastoid air cells are well pneumatized. Orbits: The bony orbits are grossly intact. IMPRESSION: There is no hemorrhage, mass effect, or evidence of acute territorial ischemia by CT criteria. ACT 112: Negative or not required by law. Electronically signed by: Brad Gonzalez M.D. 10/17/2021 11:44 AM Discharge Plan Visit Data Chief Complaint: Cardiac Assessment ED Provider: Jordy Jones Discharge Problem: OMID (acute kidney injury) Forms Stand Alone Forms: [facility] Prescriptions Prescriptions: No Action oxycodone 10 mg tablet 10 mg PO .COMPLEX Rx Instructions: 10 mg orally take 2 tab in the morning one tab at noon and 2 tab in the evening; abiraterone [Zytiga] 250 mg Tablet 1,000 mg PO QAM docusate sodium 50 mg Capsule 50 mg PO QAM calcium carbonate-vitamin D3 [Calcium 500 With D] 500 mg(1,250mg) -400 unit Tablet 1 tab PO QAM Lupron Depot (6 Month) 45 mg Syringe Kit 1 dose IM UD Rx Instructions: [id number] pregabalin [Lyrica] 300 mg Capsule 300 mg PO BID travoprost [Travatan Z] 0.004 % Drops 1 drp OPB HS timolol maleate (PF) 0.5 % Dropperette 1 drp OPB BID Xarelto 20 mg Tablet 20 mg PO QAM Qty: 0 0RF prednisone 5 mg tablet 5 mg PO QAM baclofen 10 mg tablet 20 mg PO QID gabapentin 100 mg capsule 100 mg PO HS celecoxib 100 mg capsule 100 mg PO BID lisinopril 10 mg Tablet 10 mg PO QAM Qty: 30 0RF metoprolol succinate [Toprol XL] 25 mg tablet extended release 24 hr 12.5 mg PO BID Qty: 30 0RF amoxicillin 500 mg capsule 500 mg PO Q8H Qty: 21 0RF Saccharomyces boulardii 250 mg capsule 250 mg PO BID Qty: 14 0RF Referrals Referrals: Clifford Gandhi DO [Primary Care Provider] -
[2021-10-17 10:58] LABS: Basophils # (auto) 0.03 K/uL (0-0.2); Basophils % (auto) 0.4 %; Eosinophils # (auto) 0.33 K/uL (0-0.50); Eosinophils % (auto) 4.5 %; Hematocrit (blood only) 34.9 % (40.1-51.0); Hemoglobin 11.2 g/dl (14.0-18.0); Immature Granulocytes # (auto) 0.11 K/uL (0.00-0.02); Immature Granulocytes % (auto) 1.5 %; Lymphocytes # (auto) 0.93 K/uL (1.2-3.4); Lymphocytes % (auto) 12.8 %; Mean Corpuscular Hemoglobin 26.7 pg (25.0-34.0); Mean Corpuscular Hgb Conc 32.1 g/dL (32.0-36.0); Mean Corpuscular Volume 83.3 fL (80.0-100.0); Mean Platelet Volume 9.5 fL (9.4-12.4); Monocytes # (auto) 0.47 K/uL (0.24-0.82); Monocytes % (auto) 6.5 %; Neutrophils # (auto) 5.41 K/uL (1.4-6.5); Neutrophils % (auto) 74.3 %; Platelet Count 287 K/uL (130-400); RDW Coefficient of Variation 15.2 % (11.5-14.5); RDW Standard Deviation 45.8 fL (36.4-46.3); Red Blood Count 4.19 M/uL (4.63-6.08); White Blood Count 7.28 K/ul (4.8-10.8)
[2021-10-17 11:38] LABS: Albumin Level 3.5 gm/dl (3.4-5.0); Bilirubin,Total 0.4 mg/dl (0.2-1.0); Calcium 8.9 mg/dl (8.5-10.1); Creatinine Clr Calc Pharmacy 41.9 ml/min; Est GFR (African American) 54.4 ml/min; Potassium 4.9 mmol/L (3.5-5.1); Troponin I High Sensitivity 20.1 pg/ml (0-20)
--- NOTE | 2021-10-17 11:46 | CT Scan Report ---
CT SCAN OF THE BRAIN WITHOUT IV CONTRAST CLINICAL HISTORY: Headache. COMPARISON STUDY: CT of the brain dated 10/08/2021. TECHNIQUE: Unenhanced axial CT scan of the brain is performed from the vertex to the skull base. A do se lowering technique was utilized adhering to the principles of ALARA. CT DOSE: 638.84 mGy.cm FINDINGS: Brain parenchyma: There is age-related involutional change noting moderate subcortical and periventri cular microangiopathic disease. There is no hemorrhage, mass effect, or evidence of acute territorial ischemia by CT criteria. Man-white matter differentiation is preserved. No extra-axial fluid collec tion is seen. Ventricles, sulci, cisterns: Prominent secondary to involutional change. Intracranial vasculature: There is atherosclerotic calcification of the cavernous carotid and vertebr al arteries. Calvarium: Unremarkable. Soft tissues: There is a left frontal scalp hematoma. Sinuses and mastoids: The visualized paranasal sinuses are clear. The mastoid air cells are well pneu matized. Orbits: The bony orbits are grossly intact. IMPRESSION: There is no hemorrhage, mass effect, or evidence of acute territorial ischemia by CT mark campos. ACT 112: Negative or not required by law. Electronically signed by: Brad Gonzalez M.D. 10/17/2021 11:44 AM
--- NOTE | 2021-10-17 12:13 | XRay Report ---
SINGLE VIEW CHEST CLINICAL HISTORY: Atypical chest pain. FINDINGS: An AP, portable, upright chest radiograph is compared to study dated 10/08/2021 and correlat ed with chest CT dated 05/15/2015. The examination is degraded by portable technique and apical lordot ic positioning. The heart is enlarged noting atherosclerotic calcification of the thoracic aorta. The pulmonary vascularity is noncongested. Chronic residual thickening is similar previous. There is chr onic elevation of the right hemidiaphragm with bibasilar scarring/atelectasis. The lungs and pleural spaces are otherwise clear. No pneumothorax is seen. The skeletal structures are osteopenic. The bony thorax is grossly intact. Fusion hardware is noted in the lower cervical spine. Intrathecal leads pr oject over the thoracic spine. IMPRESSION: Cardiomegaly with no acute cardiopulmonary abnormality identified. ACT 112: Negative or not required by law. Electronically signed by: Brad Gonzalez M.D. 10/17/2021 12:11 PM
[2021-10-17] MEDS ORDERED: METOCLOPRAMIDE HCL INJ 5 MG/ML 2 ML VIAL IV ONE (12:58)
[2021-10-17] MEDS ORDERED: diphenhydrAMINE 50 MG/ML VIAL IV ONE (12:58)
--- NOTE | 2021-10-17 13:29 | History & Physical Report ---
Date of Service October 17, 2021 Assessment & Plan (1) Ambulatory dysfunction: (2) Generalized weakness: (3) OMID (acute kidney injury): (4) E coli bacteremia: (5) Pyelonephritis: (6) Paroxysmal atrial fibrillation: Plan This is a 76-year-old male who has a significant past medical history of prostate cancer, bladder cancer, history of AAA, HTN, osteoporosis, history of cervical spine surgery, lumbar spinal stenosis status post spinal cord stimulator placement, chronic left foot drop, GERD, history of PE status post IVC filter, chronic right arm tremor and history of PMR who presents to ED secondary to generalized weakness and pain. Recently admitted 10/09-10/16 2/2 to E coli bacteremia in setting of R pyelonephritis, afib rvr s/p successful DCCV. Discharged home yesterday and difficulty ambulating around house as well as chronic neck/back pain. Found to also have a new OMID. Has not yet started antibiotics at home for bacteremia. Ambulatory dysfunction Generalized weakness Chronic Neck/Low back pain in setting of LSS with nerve stimulatory Chronic L foot drop admit to med tele consult PT/OT pt now agreeable to rehab continue baclofen, oxy as needed Ecoli bacteremia R Pyelonephritis last dose of antibiotic 9am with IV rocephin on 10/16. Did not yet start Amoxicillin Per Dr. Garcia of [place] recommends 2 weeks of oral amoxicillin 500mg TID from date of 10/09 will obtain blood cultures in ED, give 2g IV rocephin continue IV rocephin until blood culture returns OMID baseline cr ~ 1 bun/cr 35 and 1.42 hold nephrotoxic agents of lisinopril, celebrex consider repeat renal imaging if omid not resolved with IVF - per CT a/p on last admission 2. Heterogeneously decreased enhancement involving the superior pole right kidney with adjacent perinephric inflammatory stranding is suggestive of acute pyelonephritis. A one month follow-up renal ultrasound is recommended to exclude the less likely possibility of an underlying lesion. Gentle IVF 80cc/hr x 1 L, received 500ml in ED repeat bmp in a.m. PAF recent admit underwent DCCV metoprolol reduced due to bradycardia at discharge continue metoprolol and xarelto, rate and rhythm controlled continue tele monitoring follows [facility] Echo 10/11 with EF 65-0%, no regional WMA, no significant valvular heart disease. HTN hold lisinopril continue metoprolol BP acceptable 145/86 Prostate Cancer hx of bladder ca chronic incontinence currently on lupron and zytiga follow urology Chronic prednisone therapy 5mg daily pt states 2/2 to prostate ca also hx of PMR Infrarenal AAA 3.9cm on imaging, incidental finding will need OP follow up with PCP and vascular DVT ppx: Xarelto Dispo:med/tele, pt agreeable to rehab, consult PT/OT and CM FULL CODE PCP: Hiram Pt was seen and examined in collaboration with Dr. Morales, please see addendum History of Present Illness Chief Complaint: Generalized weakness and pain. Primary Care Provider: Clifford Gandhi, DO This is a 76-year-old male who has a significant past medical history of prostate cancer, bladder cancer, history of AAA, HTN, osteoporosis, history of cervical spine surgery, lumbar spinal stenosis status post spinal cord stimulator placement, chronic left foot drop, GERD, history of PE status post IVC filter, chronic right arm tremor and history of PMR who presents to ED secondary to generalized weakness and pain. Of significance patient was recently hospitalized 10/09-10/16 secondary to a fall that occurred prior to admission. He had significant traumatic ecchymoses of the face. He was further found to have E. coli bacteremia likely due to right L nephritis. Initial blood culture on 10/09 was positive for pansensitive E. coli in 2 out of 4 bottles. Repeat blood cultures on 10/[address] abdomen pelvis showed concern for right pyelonephritis although impossible to exclude underlying lesion recommend repeat ultrasound in 1 month. He was started on IV Rocephin and infectious disease was consulted. Per infectious disease he was discharged home on 500 mg of amoxicillin 3 times a day for additional 2 weeks. His hospitaliz ation was further complicated with new onset A. fib with RVR. Rates were difficult to control despite up titration metoprolol and digoxin. Digoxin was discontinued and he underwent successful DCCV prior to discharge. He is currently on Xarelto for thrombotic control. Echocardiogram revealed preserved EF with no wall motion abnormality or significant valvular heart disease. It was recommended that patient participate in acute rehab however patient declined and was discharged home yesterday. He has been taking all of his medications including his Xarelto. He has not yet picked up his amoxicillin due to lack of supply pharmacy. His last dose of antibiotic was 9 AM yesterday with IV Rocephin. He was doing okay when discharged home however found ambulation extremely difficult. Also had neck pain as well as chronic low back pain diabetes mellitus more challenging. Overall appetite was decreased last evening and he has not had much to eat or drink. He also complained of a tinnitus like sensation in the back of his head describing as a, "gunshot." This has since resolved. He denies any fever, chills, sweats, lightheadedness, dizziness, change in vision or hearing, chest pain, shortness of breath, nausea, vomiting, abdominal pain. He does have chronic urinary incontinence which is unchanged. He has not moved his bowels in 2 days. He denies any abdominal pain. He return s hospital secondary to ambulatory dysfunction. He remained hemodynamically stable in ED. Lab work revealed a mild OMID with elevated BUN at 35 and creatinine 1.42. Troponin was also mildly elevated at 20.1. EKG showed sinus bradycardia without any ST or T wave changes. In ED he received gentle IV fluid. Allergies Allergy/AdvReac Type Severity Reaction Status Date / Time adalimumab Allergy Severe GI SYMPTOMS Verified 10/08/21 16:58 mirabegron Allergy Intermediate NEUROLOGICAL Verified 10/08/21 16:58 SYMPTOMS/STOMACH PAINS methotrexate Allergy Unknown Blood Verified 10/08/21 16:58 platelets drop. naproxen Allergy Unknown dilusional Verified 10/08/21 16:58 Home Medications Medication Instructions Recorded Confirmed Type abiraterone 250 mg tablet (Zytiga) 1,000 mg PO QAM 01/26/18 10/17/21 History calcium carbonate 500 mg-vitamin 1 tab PO QAM 01/26/18 10/17/21 History D3 10 mcg (400 unit) tablet (Calcium 500 With D) docusate sodium 50 mg capsule 50 mg PO QAM 01/26/18 10/17/21 History leuprolide acetate (6 month) 45 mg 1 dose IM UD 01/26/18 10/17/21 History intramuscular syringe kit (Lupron Depot) timolol maleate (PF) 0.5 % eye 1 drp OPB BID 01/26/18 10/17/21 History drops in a dropperette travoprost 0.004 % eye drops 1 drp OPB HS 01/26/18 10/17/21 History (Travatan Z) rivaroxaban 20 mg tablet (Xarelto) 20 mg PO QAM #0 tabs 02/17/18 10/17/21 Rx oxycodone 10 mg tablet 10 mg PO .COMPLEX 09/24/21 10/17/21 History prednisone 5 mg tablet 5 mg PO QAM 09/24/21 10/17/21 History baclofen 10 mg tablet 20 mg PO QID 10/08/21 10/17/21 History celecoxib 100 mg capsule 100 mg PO BID 10/08/21 10/17/21 History gabapentin 100 mg capsule 100 mg PO HS 10/08/21 10/17/21 History Saccharomyces boulardii 250 mg 250 mg PO BID #14 caps 10/16/21 10/17/21 Rx capsule amoxicillin 500 mg capsule 500 mg PO Q8H #21 caps 10/16/21 10/17/21 Rx lisinopril 10 mg tablet 10 mg PO QAM #30 tabs 10/16/21 10/17/21 Rx metoprolol succinate 25 mg 12.5 mg PO BID #30 tabs 10/16/21 10/17/21 Rx tablet,extended release 24 hr (Toprol XL) dorzolamide 22.3 mg-timolol 6.8 1 drp OPB BID 10/17/21 10/17/21 History mg/mL eye drops Past Med/Surg History Medical History Abdominal aortic aneurysm per 05/25/17 CT: "Focal outpouchings of the juxtarenal and infrarenal abdominal aorta, 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 The infrarenal lesion currently measures 33 mm in maximum diameter from the center line, unchanged in size when compared to the most recent prior examination of 08/11/2016 but is enlarged when compared to more remote examination of 11/13/2014. The juxtarenal lesion appears unchanged when compared to prior examination of 11/13/2014 measuring 26 mm in maximum axial diameter on both examinations." Chronic back pain LEFT LEG Deep vein thrombosis S/P LEG INJURY 2014 Glaucoma [place] filter in place 2014 H/O prostate cancer S/P PROSTATECTOMY 2006 History of bladder cancer s/p TURBT 06/2016 History of ITP 2014, tx with prednisone Malignant neoplasm of urinary bladder On anticoagulant therapy Osteoarthritis Overactive bladder Prostate cancer Pulmonary embolism FROM DVT 2014 Sleep apnea CPAP Transient ischemic attack (TIA) HX, COUPLE YEARS AGO, UNCLEAR IF ACTUAL TIA. PT ON XARELTO NOW FOR DVT/PE HX. Surgical History H/O shoulder surgery RIGHT History of bladder surgery TURBT 06/2016 History of laminectomy History of prostatectomy S/P PROSTATE CANCER 2005- s/p radiation and prostatectomy. Recurrent disease found in lymph node 2014. On hormone therapy. History of total hip arthroplasty R/L Hx of cervical spine surgery ANTERIOR Family History Mother Alzheimer disease Father Aortic aneurysm Other Family history non-contributory Social History Smoking Status: Current every day smoker Tobacco Type: Cigars Cigarettes Per Day: 1 PACK OF MINI-CIGARS PER MONTH; Second Hand Exposure: No; Do You Dip or Chew Tobacco: No; Tobacco Cessation Education Requested by Patient: No Hx Alcohol Use: No Hx Substance Use: No Preferred Language: Spanish Communication Ability: Effective Television Production Assistant Required: No Beliefs That Will Affect Care: None marital status: Current Living Situation: Spouse Other Information That Helps Us Care for You: No Feels Safe at Home: Yes Safety Concerns: Feels Safe At This Time Assistive Devices: Denture - Upper, Denture - Lower, Glasses and Walker Review of Systems Review of Systems: All systems reviewed & are unremarkable except as noted in HPI & below Physical Exam Physical Exam: Constitutional: WD/WN, Elderly, M, chronically ill appearing, vitals as above, NAD, sitting up in bed, pleasant, conversing easily Head: Normocephalic, + facial ecchymosis with L frontal hematoma Eyes: PERRL, conjunctivae normal, anicteric sclerae ENMT: external ear and nose normal, oropharynx normal Neck: trachea midline, no thyromegaly normal visual inspection Respiratory: normal respiratory effort, lungs clear to auscultation, no wheeze, rales, rhonchi. Normal insp/exp effort, no accessory muscle use Cardiovascular: sinus bradley, reg rhythm, no murmur, no edema Vessels: no JVD or carotid bruit Chest: normal inspection of chest Abdomen: normal bowel sounds, soft, nontender, no hepatosplenomegaly Musculoskeletal: no cyanosis or clubbing, extremities motor strength 4/5 except LLE 2/2 to Chronic L foot droop Skin: no rashes, warm and dry normal turgor Neurologic: PERRL, EOMI, accommodation nl, no face palsy, no dysarthria CN's II-XI intact bilaterally and moves all extremities Psychiatric: A+Ox3, euthymic affect Lymphatic: no cervical or axillary lymphadenopathy : deferred Results & Data Results & Data ([facility]) Vital Signs (Past 12 Hours) Vital Signs Temp Pulse Resp BP Pulse Ox O2 Del Method 10/17/21 12:01 62 15 98 10/17/21 12:01 151/74 H 10/17/21 11:31 166/89 H 10/17/21 11:31 50 L 19 10/17/21 10:52 54 L 14 95 Room Air 10/17/21 10:26 37 C 54 L 14 148/99 H 95 Room Air Diagnostic Findings Chest X-Ray 10/17/21 10:36 SINGLE VIEW CHEST CLINICAL HISTORY: Atypical chest pain. FINDINGS: An AP, portable, upright chest radiograph is compared to study dated 10/08/2021 and correlated with chest CT dated 05/15/2015. The examination is degraded by portable technique and apical lordotic positioning. The heart is enlarged noting atherosclerotic calcification of the thoracic aorta. The pulmonary vascularity is noncongested. Chronic residual thickening is similar previous. There is chronic elevation of the right hemidiaphragm with bibasilar scarring/atelectasis. The lungs and pleural spaces are otherwise clear. No pneumothorax is seen. The skeletal structures are osteopenic. The bony thorax is grossly intact. Fusion hardware is noted in the lower cervical spine. Intrathecal leads project over the thoracic spine. IMPRESSION: Cardiomegaly with no acute cardiopulmonary abnormality identified. ACT 112: Negative or not required by law. Electronically signed by: Brad Gonzalez M.D. 10/17/2021 12:[address] 10/17/21 10:36 CT SCAN OF THE BRAIN WITHOUT IV CONTRAST CLINICAL HISTORY: Headache. COMPARISON STUDY: CT of the brain dated 10/08/2021. TECHNIQUE: Unenhanced axial CT scan of the brain is performed from the vertex to the skull base. A dose lowering technique was utilized adhering to the principles of ALARA. CT DOSE: 638.84 mGy.cm FINDINGS: Brain parenchyma: There is age-related involutional change noting moderate subcortical and periventricular microangiopathic disease. There is no hemorrhage, mass effect, or evidence of acute territorial ischemia by CT criteria. Man-white matter differentiation is preserved. No extra-axial fluid collection is seen. Ventricles, sulci, cisterns: Prominent secondary to involutional change. Intracranial vasculature: There is atherosclerotic calcification of the cavernous carotid and vertebral arteries. Calvarium: Unremarkable. Soft tissues: There is a left frontal scalp hematoma. Sinuses and mastoids: The visualized paranasal sinuses are clear. The mastoid air cells are well pneumatized. Orbits: The bony orbits are grossly intact. IMPRESSION: There is no hemorrhage, mass effect, or evidence of acute territorial ischemia by CT criteria. ACT 112: Negative or not required by law. Electronically signed by: Brad Gonzalez M.D. 10/17/2021 11:44 AM Medications Administered Medication List Discontinued Medications Sodium Chloride (Nss) 500 mls @ 999 mls/hr IV .Q31M STA Stop: 10/17/21 11:05 Last Infusion: 10/17/21 12:19 Dose: 0 mls/hr Documented By: Admin: 10/17/21 11:30 Dose: 999 mls/hr Documented By: MONICA ECG Rate (beats per minute): 56 Rhythm: sinus bradycardia Findings: + 1st degree AV block and + PAC COVID-19 Results Results COVID-19 Adm Lab Results: RBC 4.19 M/uL (4.63-6.08) L 10/17/21 WBC 7.28 K/ul (4.8-10.8) 10/17/21 Hgb 11.2 g/dl (14.0-18.0) L 10/17/21 Hct 34.9 % (40.1-51.0) L 10/17/21 Plt Count 287 K/uL (130-400) 10/17/21 Neutrophils (%) (Auto) 74.3 % 10/17/21 Lymphocytes (%) (Auto) 12.8 % 10/17/21 Monocytes # (Auto) 0.47 K/uL (0.24-0.82) 10/17/21 Eosinophils # (Auto) 0.33 K/uL (0-0.50) 10/17/21 Immature Granulocyte % (Auto) 1.5 % 10/17/21 Neutrophils # (Auto) 5.41 K/uL (1.4-6.5) 10/17/21 Lymphocytes # (Auto) 0.93 K/uL (1.2-3.4) L 10/17/21 Monocytes # (Auto) 0.47 K/uL (0.24-0.82) 10/17/21 Eosinophils # (Auto) 0.33 K/uL (0-0.50) 10/17/21 Basophils # (Auto) 0.03 K/uL (0-0.2) 10/17/21 Immature Granulocyte # (Auto) 0.11 K/uL (0.00-0.02) H 10/17 Na 139 mmol/L (136-145) 10/17/21 K 4.9 mmol/L (3.5-5.1) 10/17/21 Cl 106 mmol/L (98-107) 10/17/21 CO2 28 mmol/L (21-32) 10/17/21 Anion Gap 5 (3-11) 10/17/21 BUN 35 mg/dl (6-23) H 10/17/21 Creatinine 1.42 mg/dl (0.6-1.4) H 10/17/21 BUN/Creatinine Ratio 24.6 (10-20) H 10/17/21 Glucose Level 102 mg/dl (70-99(Fasting)) H 10/17/21 Ca 8.9 mg/dl (8.5-10.1) 10/17/21 Total Bilirubin 0.4 mg/dl (0.2-1.0) 10/17/21 AST/SGOT 13 U/L (13-39) 10/17/21 ALT/SGPT 10 U/L (7-52) 10/17/21 Alkaline Phosphatase 57 U/L (34-104) 10/17/21 Total Protein 6.3 gm/dl (6.0-8.3) 10/17/21 Albumin 3.5 gm/dl (3.4-5.0) 10/17/21 Globulin 2.8 gm/dl (2.5-4.0) 10/17/21 Albumin/Globulin Ratio 1.3 (0.9-2) 10/17/21 SARS-CoV-2, RNA, NAAT NEGATIVE (NEGATIVE) 10/17/21 Chest X-Ray 10/17/21 Code Status & VTE Plan Code Status FULL CODE VTE Prophylaxis Plan VTE Prophylaxis will be ordered: No Supervising Physician Co-Signing Physician Notes I have seen and examined the patient and have discussed the case with the provider above. I agree with the assessment and plan as stated with the following exceptions. His later arrived and confirmed that he had been taking his amoxicillin through this morning. She states the patient was very difficult to arouse with sternal rub and seemed more lethargic and out of it. HE is currently at his baseline mental status which includes falling asleep frequently during a conversation. He is on multiple sedating medications including oxycodone, baclofen, lyrica and gabapentin. He has been hospitalized with E coli bacteremia from acute pyelonephritis and new onset atrial fibrillation s/p DCCV yesterday. He appears fatigued. Heart sounds are difficult to auscultate clearly because he continues to have involuntary spasms in his arms and chest every few seconds. Lung sounds are clear. Abdomen is soft, NTND. No CVA tenderness. Later suprapubic tenderness was reported. Chronic LLE weakness with foot drop. He is exhausted just performing the exam. I discussed with the patient and his that it is strongly recommended he not return home without a transition through rehabilitation. PT and OT also warned that is is unsafe to go home in his current condition. The patient is now open to [facility] because he is afraid of falling. is in favor of rehab. Suspect that 3rd gen ceph or FQ or Augmentin may be better treatment for pyelonephritis with bacteremia, however, infectious disease prescribed the Amoxicillin so would go with that at discharge to ensure proper antibiotic stewardship. DO Andrew
[2021-10-17 13:34] LABS: Albumin Globulin Ratio 1.3 (0.9-2); BUN Creatinine Ratio 24.6 (10-20); Globulin 2.8 gm/dl (2.5-4.0); Total Protein 6.3 gm/dl (6.0-8.3)
[2021-10-17] MEDS ORDERED: cefTRIAXone SODIUM 2,000 MG/70 ML BAG IV STA (14:15)
[2021-10-17] MEDS ORDERED: POLYETHYLENE (MIRALAX) 17 GM PACK PO PRN (15:33)
[2021-10-17] MEDS ORDERED: SODIUM CHLORIDE 0.9% 1000ML 1,000 ML IV SCH (15:33)
[2021-10-17] MEDS ORDERED: ALUMINUM/MAGNESIUM SUSP 30 ML UDC PO PRN (15:33)
[2021-10-17] MEDS ORDERED: ONDANSETRON INJ 2 MG/ML 2 ML VIAL IV PRN (15:33)
--- NOTE | 2021-10-17 16:07 | Electrocardiogram Report ---
Test Reason : Blood Pressure : / mmHG Vent. Rate : 056 BPM Atrial Rate : 056 BPM P-R Int : 236 ms QRS Dur : 082 ms QT Int : 456 ms P-R-T Axes : 056 -10 -12 degrees QTc Int : 440 ms Sinus bradycardia with 1st degree A-V block with Premature atrial complexes Low voltage QRS Cannot rule out Anterior infarct , age undetermined Abnormal ECG When compared with ECG of 16-OCT-2021 07:11, Premature atrial complexes are now Present Confirmed by Douglas Barnes ([id number]) on 10/17/2021 4:06:52 PM Referred By: ER Confirmed By:Douglas Barnes
[2021-10-17] MEDS: DOCUSATE SODIUM/SENNA 50/8.6MG TAB PO SCH (17:13)
[2021-10-17] MEDS: BACLOFEN 20 MG TAB PO SCH ×2 (17:14→20:51)
[2021-10-17] MEDS: DORZOLAMIDE/TIMOLOL 22.3/6.8MG/ML 10 ML BTL OPB SCH (20:52)
[2021-10-17] MEDS: GABAPENTIN 100 MG CAP PO SCH (20:52)
[2021-10-17] MEDS: METOPROLOL SUCC 25MG EXT REL TAB PO SCH (20:53)
[2021-10-17] MEDS: SACCHAROMYCES BOULARDII 250 MG CAP PO SCH (20:53)
[2021-10-17] MEDS: TRAVOPROST Z 0.004% OPH SOLN 2.5 ML BTL OPB SCH (20:54)
[2021-10-17] MEDS ORDERED: TIMOLOL MALEATE 0.5% OP SOLN 5 ML BTL OP SCH (21:00)
[2021-10-17] MEDS ORDERED: PREGABALIN 150 MG CAP PO SCH (21:00)
[2021-10-17] MEDS: oxyCODONE HCL IR 5 MG TAB (IMMEDIATE RELEASE) PO PRN (22:51)
[2021-10-18] MEDS ORDERED: GABAPENTIN 100 MG CAP PO ONE (01:15)
[2021-10-18 06:00] LABS: Basophils # (auto) 0.03 K/uL (0-0.2); Basophils % (auto) 0.5 %; Eosinophils # (auto) 0.25 K/uL (0-0.50); Eosinophils % (auto) 4.2 %; Hematocrit (blood only) 32.5 % (40.1-51.0); Hemoglobin 10.5 g/dl (14.0-18.0); Immature Granulocytes # (auto) 0.06 K/uL (0.00-0.02); Lymphocytes # (auto) 1.33 K/uL (1.2-3.4); Lymphocytes % (auto) 22.4 %; Mean Corpuscular Hemoglobin 26.8 pg (25.0-34.0); Mean Corpuscular Hgb Conc 32.3 g/dL (32.0-36.0); Mean Corpuscular Volume 82.9 fL (80.0-100.0); Mean Platelet Volume 9.7 fL (9.4-12.4); Monocytes # (auto) 0.56 K/uL (0.24-0.82); Monocytes % (auto) 9.4 %; Neutrophils # (auto) 3.71 K/uL (1.4-6.5); Neutrophils % (auto) 62.5 %; Platelet Count 271 K/uL (130-400); RDW Coefficient of Variation 14.9 % (11.5-14.5); RDW Standard Deviation 44.9 fL (36.4-46.3); Red Blood Count 3.92 M/uL (4.63-6.08); White Blood Count 5.94 K/ul (4.8-10.8)
[2021-10-18 06:30] LABS: Albumin Globulin Ratio 1.3 (0.9-2); Albumin Level 3.2 gm/dl (3.4-5.0); BUN Creatinine Ratio 25.7 (10-20); Bilirubin,Total 0.4 mg/dl (0.2-1.0); Calcium 8.2 mg/dl (8.5-10.1); Creatinine Clr Calc Pharmacy 54.4 ml/min; Est GFR (African American) 82.2 ml/min; Est GFR (Non-African American) 70.9 ml/min; Globulin 2.5 gm/dl (2.5-4.0); Potassium 4.1 mmol/L (3.5-5.1); Total Protein 5.7 gm/dl (6.0-8.3)
[2021-10-18] MEDS: ABIRATERONE ACETATE 250 MG PO SCH (06:41)
[2021-10-18] MEDS: predniSONE 5 MG TAB PO SCH (06:42)
[2021-10-18] MEDS: BACLOFEN 20 MG TAB PO SCH ×4 (08:18→19:57)
[2021-10-18] MEDS: CALCIUM 600MG + VIT D 400 IU TAB PO SCH (08:18)
[2021-10-18] MEDS: METOPROLOL SUCC 25MG EXT REL TAB PO SCH (08:19)
[2021-10-18] MEDS: SACCHAROMYCES BOULARDII 250 MG CAP PO SCH ×2 (08:19→19:57)
[2021-10-18] MEDS: RIVAROXABAN 20 MG TAB PO SCH (08:19)
[2021-10-18] MEDS: DOCUSATE SODIUM/SENNA 50/8.6MG TAB PO SCH (08:19)
[2021-10-18] MEDS: DORZOLAMIDE/TIMOLOL 22.3/6.8MG/ML 10 ML BTL OPB SCH ×2 (08:20→19:56)
[2021-10-18] MEDS: oxyCODONE HCL IR 5 MG TAB (IMMEDIATE RELEASE) PO PRN ×2 (08:22→19:35)
[2021-10-18] MEDS: cefTRIAXone SODIUM 2,000 MG in DEXTROSE 5% 50 ML IV SCH (08:23)
--- NOTE | 2021-10-18 10:28 | Hospitalist Progress Note ---
Date of Service October 18, 2021 Assessment & Plan (1) Ambulatory dysfunction: (2) Generalized weakness: (3) OMID (acute kidney injury): (4) E coli bacteremia: (5) Pyelonephritis: (6) Paroxysmal atrial fibrillation: Plan This is a 76-year-old male who has a significant past medical history of prostate cancer, bladder cancer, history of AAA, HTN, osteoporosis, history of cervical spine surgery, lumbar spinal stenosis status post spinal cord stimulator placement, chronic left foot drop, GERD, history of PE status post IVC filter, chronic right arm tremor and history of PMR who presents to ED secondary to generalized weakness and pain. Recently admitted 10/09-10/16 2/2 to E coli bacteremia in setting of R pyelonephritis, afib rvr s/p successful DCCV. Discharged home 10/16 and presented back on 10/17 due to difficulty ambulating around house as well as chronic neck/back pain. Found to also have a new OMID. Ambulatory dysfunction, Generalized weakness Chronic Neck/Low back pain in setting of LSS with nerve stimulatory Chronic L foot drop - patient declined rehab during recent admission, however now agreeable to rehab. PT/OT gianna. - continue home pain medications and muscle relaxants OMID- Cr improved to 1 from 1.4 on admission with gentle hydration and holding lisinopril. Continue to hold lisinopril. HTN- BP elevated. Discontinue lisinopril d/t OMID. Will start on norvasc for hypertension. continue toprol Ecoli bacteremia due to right pyelonephritis - on iv rocephin D9/14. Seen by ID and recommended amoxicilin at discharge per ID recommendations. Blood clx 10/09 negative. Repeat blood clx from yesterday pending. continue probiotics with h/o C diff. PAF s/p DCCV on 10/16 and on sinus bradycardia since. Continue low dose toprol as per cardio recommendations. Continue xarelto. - Echo 10/11 with EF 65-0%, no regional WMA, no significant valvular heart diseas e. Prostate Cancer, hx of bladder cancer, chronic incontinence - currently on lupron and zytiga; follows with urology - on low dose prednisone for h/o prostate Ca and PMR Infrarenal AAA - 3.9cm on imaging, incidental finding - recommend OP follow up with PCP and vascular DVT ppx: Xarelto Dispo: PT/OT eval pending- Will need rehab. Patient now agreeable. Medically stable to go to rehab Updated over the phone Admission and Anticipated Discharge Date Admission Date: October 17, 2021 Subjective He feels good this morning. No ongoing issues. No fever, chills, chest pain, shortness of breath, N/V. Physical Exam Physical Exam: General: Sitting comfortably in chair, not in distress, on room air HEENT: Facial ecchymoses from recent fall- improving Chest: Clear breath sounds bilaterally, no wheezes or crackles CVS: Regular rate and rhythm, normal heart sounds, no murmur Abdomen: Soft, non tender, not distended, normal bowel sounds Neuro: Awake, alert, oriented, conversing well, non focal Extremities: No edema Results & Data Results & Data ([facility]) Vital Signs (Past 12 Hours) Vital Signs Temp Pulse Resp BP Pulse Ox O2 Del Method 10/18/21 07:13 36.7 C 55 L 19 177/88 H 96 Room Air 10/18/21 02:44 36.8 C 56 L 16 176/87 H 94 Room Air 10/17/21 23:34 37.1 C 53 L 18 164/91 H 94 Room Air Laboratory Results Short CBC 10/17/21 10/18/21 Range/Units 10:50 05:29 WBC 7.28 5.94 (4.8-10.8) K/ul Hgb 11.2 L 10.5 L (14.0-18.0) g/dl Hct 34.9 L 32.5 L (40.1-51.0) % Plt Count 287 271 (130-400) K/uL BMP 10/17/21 10/18/21 10:50 05:29 Sodium 139 141 Potassium 4.9 D 4.1 Chloride 106 111 H Carbon Dioxide 28 26 BUN 35 H 26 H Creatinine 1.42 H D 1.01 D Glucose 102 H 87 Calcium 8.9 8.2 L Liver Function 10/17/21 10/18/21 Range/Units 10:50 05:29 Total Bilirubin 0.4 0.4 (0.2-1.0) mg/dl AST 13 11 L (13-39) U/L ALT 10 8 (7-52) U/L Alkaline Phosphatase 57 52 (34-104) U/L Albumin 3.5 3.2 L (3.4-5.0) gm/dl Medications Administered Current Inpatient Medications Abiraterone Acetate (Pt's Own Med: Abiraterone Acetate 250mg Tab) 4 each PO DAILYBB [facility]; Protocol Stop: 11/17/21 06:29 Last Admin: 10/18/21 06:41 Dose: 4 each Acetaminophen (Acetaminophen 325 Mg Tab) 650 mg PO Q4H PRN PRN Reason: Pain or Fever Stop: 11/16/21 15:32 Al Hydrox/Mg Hydrox/Simethicone (Aluminum/Magnesium Susp 30 Ml Udc) 15 ml PO Q4H PRN PRN Reason: Dyspepsia Stop: 11/16/21 15:32 Baclofen (Baclofen 20 Mg Tab) 20 mg PO QID [facility] Stop: 11/16/21 16:59 Last Admin: 10/18/21 08:18 Dose: 20 mg Dorzolamide/Timolol (Dorzolamide/Timolol 22.3/6.8mg/Ml 10 Ml Btl) 1 drops OPB BID [facility] Stop: 11/16/21 20:59 Last Admin: 10/18/21 08:20 Dose: 1 drops Gabapentin (Gabapentin 100 Mg Cap) 100 mg PO HS [facility] Stop: 11/16/21 20:59 Last Admin: 10/17/21 20:52 Dose: 100 mg Ceftriaxone Sodium 2,000 mg/ (Dextrose) 70 mls @ 100 mls/hr IV DAILY [facility]; Protocol Stop: 11/01/21 08:59 Last Infusion: 10/18/21 09:05 Dose: Infused Metoprolol Succinate (Metoprolol Succ 25mg Ext Rel Tab) 12.5 mg PO BID [facility] Stop: 11/16/21 20:59 Last Admin: 10/18/21 08:19 Dose: 12.5 mg Multivitamins/Minerals (Calcium 600mg + Vit D 400 Iu Tab) 1 tab PO QAM [facility] Stop: 11/17/21 08:59 Last Admin: 10/18/21 08:18 Dose: 1 tab Ondansetron HCl (Ondansetron Inj 2 Mg/Ml 2 Ml Vial) 4 mg IV Q6H PRN PRN Reason: Nausea Stop: 11/16/21 15:32 Oxycodone HCl (Oxycodone Hcl Ir 5 Mg Tab (Immediate Release)) 10 mg PO Q6H PRN PRN Reason: Pain 5,6,7,8,9, 10 Stop: 10/31/21 15:32 Last Admin: 10/18/21 08:22 Dose: 10 mg Polyethylene Glycol (Polyethylene (Miralax) 17 Gm Pack) 17 gm PO DAILY PRN PRN Reason: Constipation Stop: 11/16/21 15:32 Prednisone (Prednisone 5 Mg Tab) 5 mg PO QAM [facility] Stop: 11/17/21 08:59 Last Admin: 10/18/21 06:42 Dose: 5 mg Rivaroxaban (Rivaroxaban 20 Mg Tab) 20 mg PO QAM [facility] Stop: 11/17/21 08:59 Last Admin: 10/18/21 08:19 Dose: 20 mg Saccharomyces Boulardii (Saccharomyces Boulardii 250 Mg Cap) 250 mg PO BID [facility] Stop: 11/16/21 20:59 Last Admin: 10/18/21 08:19 Dose: 250 mg Senna/Docusate Sodium (Docusate Sodium/Senna 50/8.6mg Tab) 1 tab PO QAM [facility] Stop: 11/16/21 15:59 Last Admin: 10/18/21 08:19 Dose: 1 tab Travoprost (Travoprost Z 0.004% Oph Soln 2.5 Ml Btl) 1 drops OPB HS [facility] Stop: 11/16/21 20:59 Last Admin: 10/17/21 20:54 Dose: 1 drops
[2021-10-18] MEDS: amLODIPine BESYLATE 5 MG TAB PO SCH (11:30)
[2021-10-18] MEDS: GABAPENTIN 100 MG CAP PO SCH (19:57)
[2021-10-18] MEDS: MELATONIN 3 MG TAB PO PRN (23:00)
[2021-10-18] MEDS: TRAVOPROST Z 0.004% OPH SOLN 2.5 ML BTL OPB SCH (23:01)
[2021-10-19] MEDS: oxyCODONE HCL IR 5 MG TAB (IMMEDIATE RELEASE) PO PRN ×3 (02:11→23:23)
[2021-10-19] MEDS: ACETAMINOPHEN 325 MG TAB PO PRN ×2 (05:30→23:25)
[2021-10-19] MEDS: ABIRATERONE ACETATE 250 MG PO SCH (05:30)
[2021-10-19] MEDS: amLODIPine BESYLATE 5 MG TAB PO SCH (08:50)
[2021-10-19] MEDS: BACLOFEN 20 MG TAB PO SCH ×4 (08:51→20:04)
[2021-10-19] MEDS: CALCIUM 600MG + VIT D 400 IU TAB PO SCH (08:51)
[2021-10-19] MEDS: DOCUSATE SODIUM/SENNA 50/8.6MG TAB PO SCH (08:52)
[2021-10-19] MEDS: DORZOLAMIDE/TIMOLOL 22.3/6.8MG/ML 10 ML BTL OPB SCH ×2 (08:52→20:08)
[2021-10-19] MEDS: predniSONE 5 MG TAB PO SCH (08:53)
[2021-10-19] MEDS: SACCHAROMYCES BOULARDII 250 MG CAP PO SCH ×2 (08:53→20:06)
[2021-10-19] MEDS: RIVAROXABAN 20 MG TAB PO SCH (08:53)
[2021-10-19] MEDS: cefTRIAXone SODIUM 2,000 MG in DEXTROSE 5% 50 ML IV SCH (08:54)
--- NOTE | 2021-10-19 12:44 | Hospitalist Progress Note ---
Date of Service October 19, 2021 Assessment & Plan (1) Ambulatory dysfunction: (2) Generalized weakness: (3) OMID (acute kidney injury): (4) E coli bacteremia: (5) Pyelonephritis: (6) Paroxysmal atrial fibrillation: Plan This is a 76-year-old male who has a significant past medical history of prostate cancer, bladder cancer, history of AAA, HTN, osteoporosis, history of cervical spine surgery, lumbar spinal stenosis status post spinal cord stimulator placement, chronic left foot drop, GERD, history of PE status post IVC filter, chronic right arm tremor and history of PMR who presents to ED secondary to generalized weakness and pain. Recently admitted 10/09-10/16 2/2 to E coli bacteremia in setting of R pyelonephritis, afib rvr s/p successful DCCV. Discharged home 10/16 and presented back on 10/17 due to difficulty ambulating around house as well as chronic neck/back pain. Found to also have a new OMID. Ambulatory dysfunction, Generalized weakness Chronic Neck/Low back pain in setting of LSS with nerve stimulatory Chronic L foot drop - patient declined rehab during recent admission, however now agreeable to rehab. PT/OT gianna. - continue home pain medications and muscle relaxants OMID- Cr improved to 1 from 1.4 on admission with gentle hydration and holding lisinopril. Continue to hold lisinopril. HTN- BP elevated. Discontinue lisinopril d/t OMID. Started on norvasc for hypertension. continue toprol Ecoli bacteremia due to right pyelonephritis - on iv rocephin D10/14. Seen by ID and recommended amoxicilin at discharge per ID recommendations. Blood clx 10/09 negative. Repeat blood clx from yesterday pending. continue probiotics with h/o C diff. Diarrhea- r/o C diff if has more diarrhea. Continue fibers to bulk up the stool. PAF s/p DCCV on 10/16 and on sinus bradycardia since. Continue low dose toprol as per cardio recommendations. Continue xarelto. - Echo 10/11 with EF 65-0%, no regional WMA, no significant valvular heart disease. Prostate Cancer, hx of bladder cancer, chronic incontinence - currently on lupron and zytiga; follows with urology - on low dose prednisone for h/o prostate Ca and PMR Infrarenal AAA - 3.9cm on imaging, incidental finding - recommend OP follow up with PCP and vascular DVT ppx: Gerald Dispo: PT/OT recommended rehab- awaiting insurance auth and bed availability. CM following. Medically stable to go to rehab Updated at bedside Admission and Anticipated Discharge Date Admission Date: October 17, 2021 Subjective States he was constipated and received miralax but had multiple diarrheal movements. He does have h/o C diff. Asking for diet to be changed to regular. Asking when he can go to the rehab. No other issues. Physical Exam Physical Exam: General: Sitting comfortably in chair, not in distress, on room air HEENT: Facial ecchymoses from recent fall- improving Chest: Clear breath sounds bilaterally, no wheezes or crackles CVS: Regular rate and rhythm, normal heart sounds, no murmur Abdomen: Soft, non tender, not distended, normal bowel sounds Neuro: Awake, alert, oriented, conversing well, non focal Extremities: No edema Results & Data Results & Data ([facility]) Vital Signs (Past 12 Hours) Vital Signs Temp Pulse Resp BP Pulse Ox O2 Del Method 10/19/21 11:37 36.9 C 52 L 18 154/82 H 95 Room Air 10/19/21 08:47 36.9 C 52 L 18 155/77 H 97 Room Air 10/19/21 02:26 36.5 C 53 L 18 160/85 H 95 Room Air Medications Administered Current Inpatient Medications Abiraterone Acetate (Pt's Own Med: Abiraterone Acetate 250mg Tab) 4 each PO DAILYBB [facility]; Protocol Stop: 11/17/21 06:29 Last Admin: 10/19/21 05:30 Dose: 4 each Acetaminophen (Acetaminophen 325 Mg Tab) 650 mg PO Q4H PRN PRN Reason: Pain or Fever Stop: 11/16/21 15:32 Last Admin: 10/19/21 05:30 Dose: 650 mg Al Hydrox/Mg Hydrox/Simethicone (Aluminum/Magnesium Susp 30 Ml Udc) 15 ml PO Q4H PRN PRN Reason: Dyspepsia Stop: 11/16/21 15:32 Amlodipine Besylate (Amlodipine Besylate 5 Mg Tab) [facility] Stop: 11/17/21 10:59 Last Admin: 10/19/21 08:50 Dose: 5 mg Baclofen (Baclofen 20 Mg Tab) 20 mg PO QID [facility] Stop: 11/16/21 16:59 Last Admin: 10/19/21 16:35 Dose: 20 mg Dorzolamide/Timolol (Dorzolamide/Timolol 22.3/6.8mg/Ml 10 Ml Btl) 1 drops OPB BID [facility] Stop: 11/16/21 20:59 Last Admin: 10/19/21 08:52 Dose: 1 drops Gabapentin (Gabapentin 100 Mg Cap) 100 mg PO HS [facility] Stop: 11/16/21 20:59 Last Admin: 10/18/21 19:57 Dose: 100 mg Ceftriaxone Sodium 2,000 mg/ (Dextrose) 70 mls @ 100 mls/hr IV DAILY [facility]; Protocol Stop: 11/01/21 08:59 Last Infusion: 10/19/21 09:33 Dose: Infused Melatonin (Melatonin 3 Mg Tab) 3 mg PO HS PRN PRN Reason: Sleep Stop: 11/17/21 20:22 Last Admin: 10/18/21 23:00 Dose: 3 mg Metoprolol Succinate (Metoprolol Succ 25mg Ext Rel Tab) 12.5 mg PO BID [facility] Stop: 11/16/21 20:59 Last Admin: 10/18/21 08:19 Dose: 12.5 mg Multivitamins/Minerals (Calcium 600mg + Vit D 400 Iu Tab) 1 tab PO QAM [facility] Stop: 11/17/21 08:59 Last Admin: 10/19/21 08:51 Dose: 1 tab Ondansetron HCl (Ondansetron Inj 2 Mg/Ml 2 Ml Vial) 4 mg IV Q6H PRN PRN Reason: Nausea Stop: 11/16/21 15:32 Oxycodone HCl (Oxycodone Hcl Ir 5 Mg Tab (Immediate Release)) 10 mg PO Q6H PRN PRN Reason: Pain 5,6,7,8,9, 10 Stop: 10/31/21 15:32 Last Admin: 10/19/21 14:38 Dose: 10 mg Polyethylene Glycol (Polyethylene (Miralax) 17 Gm Pack) 17 gm PO DAILY PRN PRN Reason: Constipation Stop: 11/16/21 15:32 Last Admin: 10/18/21 12:27 Dose: 17 gm Prednisone (Prednisone 5 Mg Tab) 5 mg PO QAM [facility] Stop: 11/17/21 08:59 Last Admin: 10/19/21 08:53 Dose: 5 mg Psyllium Hydrophilic Mucilloid (Psyllium Or Guar Gum Fiber Powder Packet) 1 pkt PO QAM [facility] Stop: 11/18/21 13:29 Last Admin: 10/19/21 14:39 Dose: 1 pkt Rivaroxaban (Rivaroxaban 20 Mg Tab) 20 mg PO QAM [facility] Stop: 11/17/21 08:59 Last Admin: 10/19/21 08:53 Dose: 20 mg Saccharomyces Boulardii (Saccharomyces Boulardii 250 Mg Cap) 250 mg PO BID [facility] Stop: 11/16/21 20:59 Last Admin: 10/19/21 08:53 Dose: 250 mg Senna/Docusate Sodium (Docusate Sodium/Senna 50/8.6mg Tab) 1 tab PO QAM [facility] Stop: 11/16/21 15:59 Last Admin: 10/19/21 08:52 Dose: Not Given Travoprost (Travoprost Z 0.004% Oph Soln 2.5 Ml Btl) 1 drops OPB HS [facility] Stop: 11/16/21 20:59 Last Admin: 10/18/21 23:01 Dose: 1 drops
[2021-10-19] MEDS: PSYLLIUM or GUAR GUM FIBER POWDER PACKET PO SCH (14:39)
[2021-10-19] MEDS: TRAVOPROST Z 0.004% OPH SOLN 2.5 ML BTL OPB SCH (20:07)
[2021-10-19] MEDS: GABAPENTIN 100 MG CAP PO SCH (20:07)
[2021-10-19] MEDS: MELATONIN 3 MG TAB PO PRN (23:23)
[2021-10-20] MEDS: oxyCODONE HCL IR 5 MG TAB (IMMEDIATE RELEASE) PO PRN ×2 (05:51→20:17)
[2021-10-20] MEDS: ABIRATERONE ACETATE 250 MG PO SCH (05:52)
[2021-10-20 06:03] LABS: Hematocrit (blood only) 32.8 % (40.1-51.0); Hemoglobin 10.4 g/dl (14.0-18.0); Mean Corpuscular Hemoglobin 26.3 pg (25.0-34.0); Mean Corpuscular Hgb Conc 31.7 g/dL (32.0-36.0); Mean Platelet Volume 9.1 fL (9.4-12.4); Platelet Count 265 K/uL (130-400); RDW Standard Deviation 45.1 fL (36.4-46.3); Red Blood Count 3.95 M/uL (4.63-6.08); White Blood Count 8.21 K/ul (4.8-10.8)
[2021-10-20 06:26] LABS: BUN Creatinine Ratio 27.4 (10-20); Calcium 8.3 mg/dl (8.5-10.1); Creatinine Clr Calc Pharmacy 82.2 ml/min; Est GFR (Non-African American) 88.8 ml/min; Magnesium 1.9 mg/dl (1.7-2.4); Potassium 3.8 mmol/L (3.5-5.1)
[2021-10-20] MEDS: DORZOLAMIDE/TIMOLOL 22.3/6.8MG/ML 10 ML BTL OPB SCH ×2 (07:55→20:19)
[2021-10-20] MEDS: BACLOFEN 20 MG TAB PO SCH ×4 (07:57→20:18)
[2021-10-20] MEDS: amLODIPine BESYLATE 5 MG TAB PO SCH (07:57)
[2021-10-20] MEDS: SACCHAROMYCES BOULARDII 250 MG CAP PO SCH ×2 (07:57→20:19)
[2021-10-20] MEDS: DOCUSATE SODIUM/SENNA 50/8.6MG TAB PO SCH (07:57)
[2021-10-20] MEDS: RIVAROXABAN 20 MG TAB PO SCH (07:57)
[2021-10-20] MEDS: PSYLLIUM or GUAR GUM FIBER POWDER PACKET PO SCH (07:58)
[2021-10-20] MEDS: predniSONE 5 MG TAB PO SCH (07:58)
[2021-10-20] MEDS: CALCIUM 600MG + VIT D 400 IU TAB PO SCH (07:58)
[2021-10-20] MEDS: cefTRIAXone SODIUM 2,000 MG in DEXTROSE 5% 50 ML IV SCH (08:03)
--- NOTE | 2021-10-20 11:46 | Hospitalist Progress Note ---
Date of Service October 20, 2021 Assessment & Plan (1) Ambulatory dysfunction: (2) Generalized weakness: (3) OMID (acute kidney injury): (4) E coli bacteremia: (5) Pyelonephritis: (6) Paroxysmal atrial fibrillation: Plan This is a 76-year-old male who has a significant past medical history of prostate cancer, bladder cancer, history of AAA, HTN, osteoporosis, history of cervical spine surgery, lumbar spinal stenosis status post spinal cord stimulator placement, chronic left foot drop, GERD, history of PE status post IVC filter, chronic right arm tremor and history of PMR who presents to ED secondary to generalized weakness and pain. Recently admitted 10/09-10/16 2/2 to E coli bacteremia in setting of R pyelonephritis, afib rvr s/p successful DCCV. Discharged home 10/16 and presented back on 10/17 due to difficulty ambulating around house as well as chronic neck/back pain. Found to also have a new OMID. Ambulatory dysfunction, Generalized weakness Chronic Neck/Low back pain in setting of LSS with nerve stimulatory Chronic L foot drop - patient declined rehab during recent admission, however now agreeable to rehab in this admission. PT/OT has evaluated the patient already. - continue home pain medications and muscle relaxants OMID-Cr back to baseline. Lisinopril restarted. HTN- Lisinopril restarted. Stop amlodipine. continue toprol with holding parameters. Ecoli bacteremia due to right pyelonephritis - on iv rocephin [id number]. Seen by ID and recommended amoxicilin at discharge per ID recommendations. Repeat Cx negative. . continue probiotics with h/o C diff. Diarrhea-C.diff negative. PAF s/p DCCV on 10/16 and on sinus bradycardia since. Continue low dose toprol as per cardio recommendations. Continue xarelto. - Echo 10/11 with EF 65-0%, no regional WMA, no significant valvular heart disease. Prostate Cancer, hx of bladder cancer, chronic incontinence - currently on lupron and zytiga; follows with urology - on low dose prednisone for h/o prostate Ca and PMR Infrarenal AAA - 3.9cm on imaging, incidental finding - recommend OP follow up with PCP and vascular DVT ppx: Xarelto Dispo: PT/OT recommended rehab- awaiting insurance auth and bed availability. CM following. Medically stable to go to rehab Admission and Anticipated Discharge Date Admission Date: October 17, 2021 Subjective Patient seen and examined at bedside. He is sitting up on the chair; comfortable. He says he feels better overall compared to previous days. He denies any fever, chills, chest pain, shortness of breath or abdominal pain. He had a normal bowel movement today. Condom cath in place draining clear urine. Physical Exam Physical Exam: General: Sitting comfortably in chair, not in distress, on room air HEENT: Facial ecchymoses from recent fall- improving. Chest: Clear breath sounds bilaterally, no wheezes or crackles CVS: Regular rate and rhythm, normal heart sounds, no murmur Abdomen: Soft, non tender, not distended, normal bowel sounds Neuro: Awake, alert, oriented, conversing well, non focal Extremities: No edema Results & Data Results & Data ([facility]) Vital Signs (Past 12 Hours) Vital Signs Temp Pulse Pulse Resp BP Pulse Ox O2 Del Method 10/20/21 08:00 52 L 10/20/21 07:50 36.6 C 54 L 16 115/70 94 Room Air 10/20/21 04:08 36.9 C 57 L 16 137/67 96 Room Air Diagnostic Findings Laboratory Results WBC 8.21 K/ul (4.8-10.8) 10/20/21 05:40 RBC 3.95 M/uL (4.63-6.08) L 10/20/21 05:40 Hgb 10.4 g/dl (14.0-18.0) L 10/20/21 05:40 Hct 32.8 % (40.1-51.0) L 10/20/21 05:40 MCV 83.0 fL (80.0-100.0) 10/20/21 05:40 MCH 26.3 pg (25.0-34.0) 10/20/21 05:40 MCHC 31.7 g/dL (32.0-36.0) L 10/20/21 05:40 RDW Std Deviation 45.1 fL (36.4-46.3) 10/20/21 05:40 RDW Coeff of Luis Angel 15.0 % (11.5-14.5) H 10/20/21 05:40 Plt Count 265 K/uL (130-400) 10/20/21 05:40 MPV 9.1 fL (9.4-12.4) L 10/20/21 05:40 Immature Gran % (Auto) 1.0 % 10/18/21 05:29 Neut % (Auto) 62.5 % 10/18/21 05:29 Lymph % (Auto) 22.4 % 10/18/21 05:29 [place] % (Auto) 9.4 % 10/18/21 05:29 Eos % (Auto) 4.2 % 10/18/21 05:29 Baso % (Auto) 0.5 % 10/18/21 05:29 Neut # (Auto) 3.71 K/uL (1.4-6.5) 10/18/21 05:29 Lymph # (Auto) 1.33 K/uL (1.2-3.4) 10/18/21 05:29 [place] # (Auto) 0.56 K/uL (0.24-0.82) 10/18/21 05:29 Eos # (Auto) 0.25 K/uL (0-0.50) 10/18/21 05:29 Baso # (Auto) 0.03 K/uL (0-0.2) 10/18/21 05:29 Immature Gran # (Auto) 0.06 K/uL (0.00-0.02) H 10/18/21 05:29 Sodium 139 mmol/L (136-145) 10/20/21 05:40 Potassium 3.8 mmol/L (3.5-5.1) 10/20/21 05:40 Chloride 109 mmol/L (98-107) H 10/20/21 05:40 Carbon Dioxide 25 mmol/L (21-32) 10/20/21 05:40 Anion Gap 5 (3-11) 10/20/21 05:40 BUN 20 mg/dl (6-23) 10/20/21 05:40 Creatinine 0.73 mg/dl (0.6-1.4) 10/20/21 05:40 Est Cr Clr Drug Dosing 82.2 ml/min 10/20/21 05:40 Est GFR ( Amer) 103.0 ml/min 10/20/21 05:40 Est GFR (Non-Af Amer) 88.8 ml/min 10/20/21 05:40 BUN/Creatinine Ratio 27.4 (10-20) H 10/20/21 05:40 Glucose 89 mg/dl (70-99(Fasting)) 10/20/21 05:40 Calcium 8.3 mg/dl (8.5-10.1) L 10/20/21 05:40 Magnesium 1.9 mg/dl (1.7-2.4) 10/20/21 05:40 Total Bilirubin 0.4 mg/dl (0.2-1.0) 10/18/21 05:29 AST 11 U/L (13-39) L 10/18/21 05:29 ALT 8 U/L (7-52) 10/18/21 05:29 Alkaline Phosphatase 52 U/L (34-104) 10/18/21 05:29 Troponin I High Sens 18.5 pg/ml (0-20) 10/17/21 22:37 Total Protein 5.7 gm/dl (6.0-8.3) L 10/18/21 05:29 Albumin 3.2 gm/dl (3.4-5.0) L 10/18/21 05:29 Globulin 2.5 gm/dl (2.5-4.0) 10/18/21 05:29 Albumin/Globulin Ratio 1.3 (0.9-2) 10/18/21 05:29 Lipase 30 U/L (11-82) 10/17/21 10:50 Stl C. diff Tox B Gene Negative Cdiff Gene (Neg) 10/20/21 08:46 SARS-CoV-2, RNA, NAAT NEGATIVE (NEGATIVE) 10/17/21 13:38 Impressions Chest X-Ray 10/17/21 10:36 SINGLE VIEW CHEST CLINICAL HISTORY: Atypical chest pain. FINDINGS: An AP, portable, upright chest radiograph is compared to study dated 10/08/2021 and correlated with chest CT dated 05/15/2015. The examination is degraded by portable technique and apical lordotic positioning. The heart is enlarged noting atherosclerotic calcification of the thoracic aorta. The pulmonary vascularity is noncongested. Chronic residual thickening is similar previous. There is chronic elevation of the right hemidiaphragm with bibasilar scarring/atelectasis. The lungs and pleural spaces are otherwise clear. No pneumothorax is seen. The skeletal structures are osteopenic. The bony thorax is grossly intact. Fusion hardware is noted in the lower cervical spine. Intrathecal leads project over the thoracic spine. IMPRESSION: Cardiomegaly with no acute cardiopulmonary abnormality identified. ACT 112: Negative or not required by law. Electronically signed by: Brad Gonzalez M.D. 10/17/2021 12:[address] 10/17/21 10:36 CT SCAN OF THE BRAIN WITHOUT IV CONTRAST CLINICAL HISTORY: Headache. COMPARISON STUDY: CT of the brain dated 10/08/2021. TECHNIQUE: Unenhanced axial CT scan of the brain is performed from the vertex to the skull base. A dose lowering technique was utilized adhering to the principles of ALARA. CT DOSE: 638.84 mGy.cm FINDINGS: Brain parenchyma: There is age-related involutional change noting moderate subcortical and periventricular microangiopathic disease. There is no hemorr laura, mass effect, or evidence of acute territorial ischemia by CT criteria. Man-white matter differentiation is preserved. No extra-axial fluid collection is seen. Ventricles, sulci, cisterns: Prominent secondary to involutional change. Intracranial vasculature: There is atherosclerotic calcification of the cavernous carotid and vertebral arteries. Calvarium: Unremarkable. Soft tissues: There is a left frontal scalp hematoma. Sinuses and mastoids: The visualized paranasal sinuses are clear. The mastoid air cells are well pneumatized. Orbits: The bony orbits are grossly intact. IMPRESSION: There is no hemorrhage, mass effect, or evidence of acute territorial ischemia by CT criteria. ACT 112: Negative or not required by law. Electronically signed by: Brad Gonzalez M.D. 10/17/2021 11:44 AM
[2021-10-20] MEDS: ACETAMINOPHEN 325 MG TAB PO PRN (17:12)
[2021-10-20] MEDS: GABAPENTIN 100 MG CAP PO SCH (20:18)
[2021-10-20] MEDS: TRAVOPROST Z 0.004% OPH SOLN 2.5 ML BTL OPB SCH (20:19)
[2021-10-20] MEDS ORDERED: GABAPENTIN 100 MG CAP PO STA (22:32)
--- NOTE | 2021-10-20 22:32 | Communication Note ---
Date of Service: October 20, 2021 Patient requesting for Lyrica medication for restless legs prescribed by provider last 10/16/21 discharge. Patient not confused as per RN. AP RLS Titrate home gabapentin dose for now with hold parameters for sedation confusion. Will relay to AM provider.
[2021-10-20] MEDS: MELATONIN 3 MG TAB PO PRN (23:50)
[2021-10-21 06:23] LABS: Hematocrit (blood only) 32.9 % (40.1-51.0); Hemoglobin 10.7 g/dl (14.0-18.0); Mean Corpuscular Hemoglobin 26.7 pg (25.0-34.0); Mean Corpuscular Hgb Conc 32.5 g/dL (32.0-36.0); Mean Platelet Volume 9.6 fL (9.4-12.4); Platelet Count 261 K/uL (130-400); RDW Standard Deviation 44.3 fL (36.4-46.3); Red Blood Count 4.01 M/uL (4.63-6.08); White Blood Count 8.24 K/ul (4.8-10.8)
[2021-10-21] MEDS: ABIRATERONE ACETATE 250 MG PO SCH (06:49)
[2021-10-21] MEDS: predniSONE 5 MG TAB PO SCH (06:49)
[2021-10-21] MEDS: oxyCODONE HCL IR 5 MG TAB (IMMEDIATE RELEASE) PO PRN ×3 (06:53→20:50)
[2021-10-21 06:55] LABS: BUN Creatinine Ratio 20.5 (10-20); Calcium 8.4 mg/dl (8.5-10.1); Creatinine Clr Calc Pharmacy 82.2 ml/min; Est GFR (Non-African American) 88.8 ml/min; Potassium 3.7 mmol/L (3.5-5.1)
[2021-10-21] MEDS: RIVAROXABAN 20 MG TAB PO SCH (08:14)
[2021-10-21] MEDS: CALCIUM 600MG + VIT D 400 IU TAB PO SCH (08:14)
[2021-10-21] MEDS: SACCHAROMYCES BOULARDII 250 MG CAP PO SCH ×2 (08:14→20:50)
[2021-10-21] MEDS: BACLOFEN 20 MG TAB PO SCH ×4 (08:14→23:10)
[2021-10-21] MEDS: PSYLLIUM or GUAR GUM FIBER POWDER PACKET PO SCH (08:14)
[2021-10-21] MEDS: DOCUSATE SODIUM/SENNA 50/8.6MG TAB PO SCH (08:14)
[2021-10-21] MEDS: lisinopril 10 MG TAB PO SCH (08:15)
[2021-10-21] MEDS: DORZOLAMIDE/TIMOLOL 22.3/6.8MG/ML 10 ML BTL OPB SCH ×2 (08:15→20:51)
[2021-10-21] MEDS: cefTRIAXone SODIUM 2,000 MG in DEXTROSE 5% 50 ML IV SCH (09:15)
--- NOTE | 2021-10-21 11:49 | Hospitalist Progress Note ---
Date of Service October 21, 2021 Assessment & Plan (1) Ambulatory dysfunction: (2) Generalized weakness: (3) OMID (acute kidney injury): (4) E coli bacteremia: (5) Pyelonephritis: (6) Paroxysmal atrial fibrillation: Plan This is a 76-year-old male who has a significant past medical history of prostate cancer, bladder cancer, history of AAA, HTN, osteoporosis, history of cervical spine surgery, lumbar spinal stenosis status post spinal cord stimulator placement, chronic left foot drop, GERD, history of PE status post IVC filter, chronic right arm tremor and history of PMR who presents to ED secondary to generalized weakness and pain. Recently admitted 10/09-10/16 2/2 to E coli bacteremia in setting of R pyelonephritis, afib rvr s/p successful DCCV. Discharged home 10/16 and presented back on 10/17 due to difficulty ambulating around house as well as chronic neck/back pain. Found to also have a new OMID. Ambulatory dysfunction, Generalized weakness Chronic Neck/Low back pain in setting of LSS with nerve stimulatory Chronic L foot drop - patient declined rehab during recent admission, however now agreeable to rehab in this admission. PT/OT has evaluated the patient already. Peer to peer done; patient is rejected for acute rehab. Patient is approved for SNF at [facility]; discharged tomorrow in a.m. when bed is available. - continue home pain medications and muscle relaxants OMID-Cr back to baseline. Lisinopril restarted. HTN- Lisinopril restarted. Stop amlodipine. continue toprol with holding parameters. Ecoli bacteremia due to right pyelonephritis - on iv rocephin D104/06. Seen by ID and recommended amoxicilin at discharge per ID recommendations. Repeat Cx negative. . continue probiotics with h/o C diff. Diarrhea-C.diff negative. PAF s/p DCCV on 10/16 and on sinus bradycardia since. Continue low dose toprol as per cardio recommendations. Continue xarelto. - Echo 10/11 with EF 65-0%, no regional WMA, no significant valvular heart disease. -Patient continues to be sinus bradycardic; no pauses on telemetry. Continues to be on low-dose metoprolol with holding parameters. Prostate Cancer, hx of bladder cancer, chronic incontinence - currently on lupron and zytiga; follows with urology - on low dose prednisone for h/o prostate Ca and PMR Infrarenal AAA - 3.9cm on imaging, incidental finding - recommend OP follow up with PCP and vascular DVT ppx: Gerald Dispo: PT/OT recommended rehab-patient approved for SNF at [facility]. Likely DC in a.m. Admission and Anticipated Discharge Date Admission Date: October 17, 2021 Subjective Patient seen and examined at bedside. He is sitting up on the bed. No complaints of fever, chills, shortness of breath or chest pain. Overnight, he said that melatonin helped him get some sleep. Review of Systems Review of Systems: All systems reviewed & are unremarkable except as noted in Subjective Physical Exam Physical Exam: General: Sitting comfortably in bed not in distress, on room air HEENT: Facial ecchymoses from recent fall- improving. Chest: Clear breath sounds bilaterally, no wheezes or crackles CVS: Regular rate and rhythm, normal heart sounds, no murmur Abdomen: Soft, non tender, not distended, normal bowel sounds Neuro: Awake, alert, oriented, conversing well, non focal Extremities: No edema Results & Data Results & Data ([facility]) Vital Signs (Past 12 Hours) Vital Signs Temp Pulse Pulse Resp BP BP Pulse Ox 10/21/21 08:00 49 L 10/21/21 07:51 36.6 C 61 20 150/76 H 96 10/21/21 03:00 37.0 C 55 L 18 150/81 H 94 O2 Del Method 10/21/21 08:00 10/21/21 07:51 Room Air 10/21/21 03:00 Diagnostic Findings Laboratory Results WBC 8.24 K/ul (4.8-10.8) 10/21/21 05:51 RBC 4.01 M/uL (4.63-6.08) L 10/21/21 05:51 Hgb 10.7 g/dl (14.0-18.0) L 10/21/21 05:51 Hct 32.9 % (40.1-51.0) L 10/21/21 05:51 MCV 82.0 fL (80.0-100.0) 10/21/21 05:51 MCH 26.7 pg (25.0-34.0) 10/21/21 05:51 MCHC 32.5 g/dL (32.0-36.0) 10/21/21 05:51 RDW Std Deviation 44.3 fL (36.4-46.3) 10/21/21 05:51 RDW Coeff of Luis Angel 15.0 % (11.5-14.5) H 10/21/21 05:51 Plt Count 261 K/uL (130-400) 10/21/21 05:51 MPV 9.6 fL (9.4-12.4) 10/21/21 05:51 Immature Gran % (Auto) 1.0 % 10/18/21 05:29 Neut % (Auto) 62.5 % 10/18/21 05:29 Lymph % (Auto) 22.4 % 10/18/21 05:29 [place] % (Auto) 9.4 % 10/18/21 05:29 Eos % (Auto) 4.2 % 10/18/21 05:29 Baso % (Auto) 0.5 % 10/18/21 05:29 Neut # (Auto) 3.71 K/uL (1.4-6.5) 10/18/21 05:29 Lymph # (Auto) 1.33 K/uL (1.2-3.4) 10/18/21 05:29 [place] # (Auto) 0.56 K/uL (0.24-0.82) 10/18/21 05:29 Eos # (Auto) 0.25 K/uL (0-0.50) 10/18/21 05:29 Baso # (Auto) 0.03 K/uL (0-0.2) 10/18/21 05:29 Immature Gran # (Auto) 0.06 K/uL (0.00-0.02) H 10/18/21 05:29 Sodium 141 mmol/L (136-145) 10/21/21 05:51 Potassium 3.7 mmol/L (3.5-5.1) 10/21/21 05:51 Chloride 110 mmol/L (98-107) H 10/21/21 05:51 Carbon Dioxide 26 mmol/L (21-32) 10/21/21 05:51 Anion Gap 5 (3-11) 10/21/21 05:51 BUN 15 mg/dl (6-23) 10/21/21 05:51 Creatinine 0.73 mg/dl (0.6-1.4) 10/21/21 05:51 Est Cr Clr Drug Dosing 82.2 ml/min 10/21/21 05:51 Est GFR ( Amer) 103.0 ml/min 10/21/21 05:51 Est GFR (Non-Af Amer) 88.8 ml/min 10/21/21 05:51 BUN/Creatinine Ratio 20.5 (10-20) H 10/21/21 05:51 Glucose 86 mg/dl (70-99(Fasting)) 10/21/21 05:51 Calcium 8.4 mg/dl (8.5-10.1) L 10/21/21 05:51 Magnesium 1.9 mg/dl (1.7-2.4) 10/20/21 05:40 Total Bilirubin 0.4 mg/dl (0.2-1.0) 10/18/21 05:29 AST 11 U/L (13-39) L 10/18/21 05:29 ALT 8 U/L (7-52) 10/18/21 05:29 Alkaline Phosphatase 52 U/L (34-104) 10/18/21 05:29 Troponin I High Sens 18.5 pg/ml (0-20) 10/17/21 22:37 Total Protein 5.7 gm/dl (6.0-8.3) L 10/18/21 05:29 Albumin 3.2 gm/dl (3.4-5.0) L 10/18/21 05:29 Globulin 2.5 gm/dl (2.5-4.0) 10/18/21 05:29 Albumin/Globulin Ratio 1.3 (0.9-2) 10/18/21 05:29 Lipase 30 U/L (11-82) 10/17/21 10:50 Stl C. diff Tox B Gene Negative Cdiff Gene (Neg) 10/20/21 08:46 SARS-CoV-2, RNA, NAAT NEGATIVE (NEGATIVE) 10/17/21 13:38 Impressions Chest X-Ray 10/17/21 10:36 SINGLE VIEW CHEST CLINICAL HISTORY: Atypical chest pain. FINDINGS: An AP, portable, upright chest radiograph is compared to study dated 10/08/2021 and correlated with chest CT dated 05/15/2015. The examination is degraded by portable technique and apical lordotic positioning. The heart is enlarged noting atherosclerotic calcification of the thoracic aorta. The pulmonary vascularity is noncongested. Chronic residual thickening is similar previous. There is chronic elevation of the right hemidiaphragm with bibasilar scarring/atelectasis. The lungs and pleural spaces are otherwise clear. No pneumothorax is seen. The skeletal structures are osteopenic. The bony thorax is grossly intact. Fusion hardware is noted in the lower cervical spine. Intrathecal leads project over the thoracic spine. IMPRESSION: Cardiomegaly with no acute cardiopulmonary abnormality identified. ACT 112: Negative or not required by law. Electronically signed by: Brad Gonzalez M.D. 10/17/2021 12:[address] 10/17/21 10:36 CT SCAN OF THE BRAIN WITHOUT IV CONTRAST CLINICAL HISTORY: Headache. COMPARISON STUDY: CT of the brain dated 10/08/2021. TECHNIQUE: Unenhanced axial CT scan of the brain is performed from the vertex to the skull base. A dose lowering technique was utilized adhering to the principles of ALARA. CT DOSE: 638.84 mGy.cm FINDINGS: Brain parenchyma: There is age-related involutional change noting moderate subcortical and periventricular microangiopathic disease. There is no hemorrhage, mass effect, or evidence of acute territorial ischemia by CT criteria. Man-white matter differentiation is preserved. No extra-axial fluid collection is seen. Ventricles, sulci, cisterns: Prominent secondary to involutional change. Intracranial vasculature: There is atherosclerotic calcification of the cavernous carotid and vertebral arteries. Calvarium: Unremarkable. Soft tissues: There is a left frontal scalp hematoma. Sinuses and mastoids: The visualized paranasal sinuses are clear. The mastoid air cells are well pneumatized. Orbits: The bony orbits are grossly intact. IMPRESSION: There is no hemorrhage, mass effect, or evidence of acute territorial ischemia by CT criteria. ACT 112: Negative or not required by law. Electronically signed by: Brad Gonzalez M.D. 10/17/2021 11:44 AM
[2021-10-21] MEDS ORDERED: MELATONIN 3 MG TAB PO PRN (11:57)
[2021-10-21] MEDS: ACETAMINOPHEN 325 MG TAB PO PRN (15:47)
[2021-10-21] MEDS ORDERED: GABAPENTIN 100 MG CAP PO SCH (21:00)
[2021-10-21] MEDS: TRAVOPROST Z 0.004% OPH SOLN 2.5 ML BTL OPB SCH (23:09)
[2021-10-21] MEDS: MELATONIN 3 MG TAB PO PRN (23:09)
[2021-10-22] MEDS: oxyCODONE HCL IR 5 MG TAB (IMMEDIATE RELEASE) PO PRN (03:12)
[2021-10-22] MEDS: ACETAMINOPHEN 325 MG TAB PO PRN (05:47)
[2021-10-22] MEDS: predniSONE 5 MG TAB PO SCH (05:47)
[2021-10-22] MEDS: ABIRATERONE ACETATE 250 MG PO SCH (05:48)
[2021-10-22] MEDS: BACLOFEN 20 MG TAB PO SCH ×2 (07:34→12:16)
[2021-10-22 08:20] LABS: Hematocrit (blood only) 33.2 % (40.1-51.0); Hemoglobin 10.7 g/dl (14.0-18.0); Mean Corpuscular Hemoglobin 26.4 pg (25.0-34.0); Mean Corpuscular Hgb Conc 32.2 g/dL (32.0-36.0); Mean Platelet Volume 9.7 fL (9.4-12.4); Platelet Count 258 K/uL (130-400); RDW Coefficient of Variation 15.2 % (11.5-14.5); RDW Standard Deviation 45.1 fL (36.4-46.3); Red Blood Count 4.05 M/uL (4.63-6.08); White Blood Count 7.99 K/ul (4.8-10.8)
[2021-10-22 08:47] LABS: BUN Creatinine Ratio 19.7 (10-20); Calcium 8.3 mg/dl (8.5-10.1); Creatinine Clr Calc Pharmacy 79.2 ml/min; Est GFR (African American) 101.3 ml/min; Est GFR (Non-African American) 87.4 ml/min
[2021-10-22] MEDS: PSYLLIUM or GUAR GUM FIBER POWDER PACKET PO SCH (08:59)
[2021-10-22] MEDS: RIVAROXABAN 20 MG TAB PO SCH (08:59)
[2021-10-22] MEDS: CALCIUM 600MG + VIT D 400 IU TAB PO SCH (08:59)
[2021-10-22] MEDS: cefTRIAXone SODIUM 2,000 MG in DEXTROSE 5% 50 ML IV SCH (08:59)
[2021-10-22] MEDS: DORZOLAMIDE/TIMOLOL 22.3/6.8MG/ML 10 ML BTL OPB SCH (08:59)
[2021-10-22] MEDS: lisinopril 10 MG TAB PO SCH (08:59)
[2021-10-22] MEDS: SACCHAROMYCES BOULARDII 250 MG CAP PO SCH (08:59)
[2021-10-22] MEDS: DOCUSATE SODIUM/SENNA 50/8.6MG TAB PO SCH (09:01)
--- NOTE | 2021-11-09 16:24 | Discharge Summary ---
Date of Service November 09, 2021 Admission HPI Per Admitting Provider This is a 76-year-old male who has a significant past medical history of prostate cancer, bladder cancer, history of AAA, HTN, osteoporosis, history of cervical spine surgery, lumbar spinal stenosis status post spinal cord stimulator placement, chronic left foot drop, GERD, history of PE status post IVC filter, chronic right arm tremor and history of PMR who presents to ED secondary to generalized weakness and pain. Of significance patient was recently hospitalized 10/09-10/16 secondary to a fall that occurred prior to admission. He had significant traumatic ecchymoses of the face. He was further found to have E. coli bacteremia likely due to right L nephritis. Initial blood culture on 10/09 was positive for pansensitive E. coli in 2 out of 4 bottles. Repeat blood cultures on 10/[address] abdomen pelvis showed concern for right pyelonephritis although impossible to exclude underlying lesion recommend repeat ultrasound in 1 month. He was started on IV Rocephin and infectious disease was consulted. Per infectious disease he was discharged home on 500 mg of amoxicillin 3 times a day for additional 2 weeks. His hospitalization was further complicated with new onset A. fib with RVR. Rates were difficult to control despite up titration metoprolol and digoxin. Digoxin was discontinued and he underwent successful DCCV prior to discharge. He is currently on Xarelto for thrombotic control. Echocardiogram revealed preserved EF with no wall motion abnormality or significant valvular heart disease. It was recommended that patient participate in acute rehab however patient declined and was discharged home yesterday. He has been taking all of his medications including his Xarelto. He has not yet picked up his amoxicillin due to lack of supply pharmacy. His last dose of antibiotic was 9 AM yesterday with IV Rocephin. He was doing okay when discharged home however found ambulation extremely difficult. Also had neck pain as well as chronic low back pain diabetes mellitus more challenging. Overall appetite was decreased last evening and he has not had much to eat or drink. He also complained of a tinnitus like sensation in the back of his head describing as a, "gunshot." This has since resolved. He denies any fever, chills, sweats, lightheadedness, dizziness, change in vision or hearing, chest pain, shortness of breath, nausea, vomiting, abdominal pain. He does have chronic urinary incontinence which is unchanged. He has not moved his bowels in 2 days. He denies any abdominal pain. He returns hospital secondary to ambulatory dysfunction. He remained hem odynamically stable in ED. Lab work revealed a mild OMID with elevated BUN at 35 and creatinine 1.42. Troponin was also mildly elevated at 20.1. EKG showed sinus bradycardia without any ST or T wave changes. In ED he received gentle IV fluid. Admission Exam Per Admitting Provider Constitutional: WD/WN, Elderly, M, chronically ill appearing, vitals as above, NAD, sitting up in bed, pleasant, conversing easily Head: Normocephalic, + facial ecchymosis with L frontal hematoma Eyes: PERRL, conjunctivae normal, anicteric sclerae ENMT: external ear and nose normal, oropharynx normal Neck: trachea midline, no thyromegaly normal visual inspection Respiratory: normal respiratory effort, lungs clear to auscultation, no wheeze, rales, rhonchi. Normal insp/exp effort, no accessory muscle use Cardiovascular: sinus bradley, reg rhythm, no murmur, no edema Vessels: no JVD or carotid bruit Chest: normal inspection of chest Abdomen: normal bowel sounds, soft, nontender, no hepatosplenomegaly Musculoskeletal: no cyanosis or clubbing, extremities motor strength 4/5 except LLE 2/2 to Chronic L foot droop Skin: no rashes, warm and dry normal turgor Neurologic: PERRL, EOMI, accommodation nl, no face palsy, no dysarthria CN's II-XI intact bilaterally and moves all extremities Psychiatric: A+Ox3, euthymic affect Lymphatic: no cervical or axillary lymphadenopathy : deferred Principal Diagnosis (1) Ambulatory dysfunction: (2) Generalized weakness: (3) OMID (acute kidney injury): (4) E coli bacteremia: (5) Pyelonephritis: (6) Paroxysmal atrial fibrillation: Discharge Exam General: Sitting comfortably in chair, not in distress, on room air HEENT: Facial ecchymoses from recent fall- improving. Chest: Clear breath sounds bilaterally, no wheezes or crackles CVS: Regular rate and rhythm, normal heart sounds, no murmur Abdomen: Soft, non tender, not distended, normal bowel sounds Neuro: Awake, alert, oriented, conversing well, non focal Extremities: No edema Discharge Data Allergies Allergy/AdvReac Type Severity Reaction Status Date / Time adalimumab Allergy Severe GI SYMPTOMS Verified 10/08/21 16:58 mirabegron Allergy Intermediate NEUROLOGICAL Verified 10/08/21 16:58 SYMPTOMS/STOMACH PAINS methotrexate Allergy Unknown Blood Verified 10/08/21 16:58 platelets drop. naproxen Allergy Unknown dilusional Verified 10/08/21 16:58 Consultations 10/17/21 13:09 ED Decision to Admit Stat Ordered Studies 10/17/21 10:36 CT head/brain wo con Stat Hospital Course (1) Ambulatory dysfunction: (2) Generalized weakness: (3) OMID (acute kidney injury): (4) E coli bacteremia: (5) Pyelonephritis: (6) Paroxysmal atrial fibrillation: Plan This is a 76-year-old male who has a significant past medical history of prostate cancer, bladder cancer, history of AAA, HTN, osteoporosis, history of cervical spine surgery, lumbar spinal stenosis status post spinal cord stimulator placement, chronic left foot drop, GERD, history of PE status post IVC filter, chronic right arm tremor and history of PMR who presents to ED secondary to generalized weakness and pain.He was recently admitted from 10/09- 10/16 for E. coli bacteremia. He refused rehab and went home. At home he was not able to manage by himself and had a fall. Patient underwent PT OT evaluation and was recommended to go to acute rehab. He was approved to go to SNF at [facility]. Patient was continued on Rocephin throughout the hospitalization for E. coli bacteremia. He was discharged to SNF with instruction to follow-up with his PCP. Total Time Total Time Spent Total Time Spent (In Minutes): 35 Total Time Includes: Examination of the Patient, Discharge Planning, Medication Reconciliation, Communication With Other Providers and Other Discharge Plan Discharge Items Patient Disposition: Transfer Intermediate Fac Reason For Visit: CARDIAC ASSESSMENT Discharge Diagnosis: (1) Ambulatory dysfunction: (2) Generalized weakness: (3) OMID (acute kidney injury): (4) E coli bacteremia: (5) Pyelonephritis: (6) Paroxysmal atrial fibrillation: Activity: Resume your previous activity Non-emergency contact: Primary Care Provider Call non-emergency contact if: you have any medication questions and your symptoms worsen Follow-up/Referrals: Clifford Gandhi, [Primary Care Provider] - Diet: Regular Addtl Attending Provider Instructions: 1) Please take the medications as prescribed. 2) Please take Amoxicillin 500mg three times daily for 2 days. 3) Please Hold the Metoprolol if the HR is less than 60 beats per minute. 4) Follow up with your PCP as soon as possible Pending Studies at Discharge: No Stand-Alone Forms: My [facility] Skilled Items Patient informed of condition?: Yes DNR: No Discharge Level of Care: Skilled Communicable Disease: No Discharge Prognosis: Improving Lines: None Urinary Catheter: No Medications and DC Order Prescriptions: New acetaminophen 325 mg Tablet 650 mg PO Q4H PRN (Reason: pain) Qty: 30 0RF Continued Lupron Depot (6 Month) 45 mg Syringe Kit 1 dose IM UD Rx Instructions: [id number] amoxicillin 500 mg capsule 500 mg PO Q8H 2 Days Qty: 6 0RF prednisone 5 mg tablet 5 mg PO QAM Qty: 30 0RF travoprost [Travatan Z] 0.004 % Drops 1 drp OPB HS Qty: 5 0RF docusate sodium 50 mg Capsule 50 mg PO QAM Qty: 30 0RF baclofen 10 mg tablet 20 mg PO QID Qty: 30 0RF lisinopril 10 mg Tablet 10 mg PO QAM Qty: 30 0RF dorzolamide-timolol 22.3-6.8 mg/mL drops 1 drp OPB BID Qty: 10 0RF gabapentin 100 mg capsule 100 mg PO HS Qty: 30 0RF metoprolol succinate [Toprol XL] 25 mg tablet extended release 24 hr 12.5 mg PO BID Qty: 60 0RF timolol maleate (PF) 0.5 % Dropperette 1 drp OPB BID Qty: 60 0RF Saccharomyces boulardii 250 mg capsule 250 mg PO BID Qty: 14 0RF calcium carbonate-vitamin D3 [Calcium 500 With D] 500 mg(1,250mg) -400 unit Tablet 1 tab PO QAM Qty: 30 0RF abiraterone [Zytiga] 250 mg Tablet 1,000 mg PO QAM Qty: 120 0RF Xarelto 20 mg Tablet 20 mg PO QAM Qty: 30 0RF celecoxib 100 mg capsule 100 mg PO BID Qty: 14 0RF Changed oxycodone 10 mg tablet 10 mg PO .q6 prn PRN (Reason: pain) Qty: 14 0RF Discharge Orders: Discharge Order (Routine); Ordered 10/22/21 Ordered By: Aakash Dumont Admission Data Admit Date/Time: 10/17/21 13:15 Attending Provider: Aakash Dumont Admit Provider: Lily Morales Primary Care Provider: Clifford Gandhi Other Providers: Lily Morales ; [facility] ; [facility] Other Interventions: Discharge Summary Assessment (RN) Last Done: 10/22/21 11:15
== END 2021-10-22 13:34 | DRG 683 ==
LOC: ED 10:26 → 2E 13:15 → SUATTDRO 13:15 → 2E 14:54

== ENCOUNTER 2021-12-20 06:30 | Inpatient (IN) ==
--- NOTE | 2021-12-20 06:56 | Emergency Department Note ---
Impression & Plan COVID-19 ADMIT ED Provider Note HPI: The patient is a 76-year-old gentleman with history of neuromuscular junction disorder, paroxysmal atrial fibrillation on anticoagulation, presents the emergency department with a chief complaint of mechanical fall. Patient states that he fell when he was trying to go to the restroom earlier this morning at his house. On arrival to the ED the patient denies any focal complaints of pain. On arrival the patient is hemodynamically stable, he is in no acute distress on my initial assessment. He does have a history of ambulatory dysfunction. 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 Patient's lab work appears largely baseline. He is positive for COVID-19. Patient does have some ambulatory dysfunction at baseline, history of neuromuscular junction disorder, he previously was at inpatient rehabilitation and tells me he was discharged home "because I ran out of money". I do not feel that the patient is safe to be at home at this time secondary to his ambulatory dysfunction, patient states he lives alone with his and he does not feel that she is able to fully take care of him and he would like to be admitted for placement. I think this is reasonable. I discussed the case with the on-call [facility] hospitalist who admitted the patient to an inpatient bed for further care, PT/OT consultation, and placement. Patient was admitted in stable condition. Diagnosis: 1. Ambulatory dysfunction 2. COVID-19 infection 3. 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 The infrarenal lesion currently measures 33 mm in maximum diameter from the center line, unchanged in size when compared to the most recent prior examination of 08/11/2016 but is enlarged when compared to more remote examination of 11/13/2014. The juxtarenal lesion appears unchanged when compared to prior examination of 11/13/2014 measuring 26 mm in maximum axial diameter on both examinations." Chronic back pain LEFT LEG Deep vein thrombosis S/P LEG INJURY 2014 Dysuria Glaucoma [place] filter in place 2014 H/O prostate cancer S/P PROSTATECTOMY 2006 History of bladder cancer s/p TURBT 06/2016 History of ITP 2013, tx with prednisone Malignant neoplasm of urinary bladder On anticoagulant therapy Osteoarthritis Overactive bladder Prostate cancer Pulmonary embolism FROM DVT 2014 Sleep apnea CPAP Transient ischemic attack (TIA) HX, COUPLE YEARS AGO, UNCLEAR IF ACTUAL TIA. PT ON XARELTO NOW FOR DVT/PE HX. Surgical History H/O shoulder surgery RIGHT History of bladder surgery TURBT 06/2016 History of laminectomy History of prostatectomy S/P PROSTATE CANCER 2005- s/p radiation and prostatectomy. Recurrent disease found in lymph node 2014. On hormone therapy. History of total hip arthroplasty R/L Hx of cervical spine surgery ANTERIOR Family History Mother Alzheimer disease Father Aortic aneurysm Other Family history non-contributory Social History Smoking Status: Current every day smoker Tobacco Type: Cigarettes Cigarettes Per Day: 1 PACK OF MINI-CIGARS PER MONTH; Second Hand Exposure: No; Hx Alcohol Use: No Hx Substance Use: No Preferred Language: Argentine Communication Ability: Effective Dental Office Receptionist Required: No Beliefs That Will Affect Care: None marital status: Current Living Situation: Spouse Feels Safe at Home: Yes Assistive Devices: Walker Allergies Allergies Allergy/AdvReac Type Severity Reaction Status Date / Time adalimumab Allergy Severe GI SYMPTOMS Verified 10/08/21 16:58 mirabegron Allergy Intermediate NEUROLOGICAL Verified 10/08/21 16:58 SYMPTOMS/STOMACH PAINS methotrexate Allergy Unknown Blood Verified 10/08/21 16:58 platelets drop. naproxen Allergy Unknown dilusional Verified 10/08/21 16:58 Home Meds Home Medications Medication Instructions Recorded Confirmed leuprolide acetate (6 month) 45 mg 1 dose IM UD 01/26/18 10/17/21 intramuscular syringe kit (Lupron Depot) Previous Rx's Medication Instructions Recorded Saccharomyces boulardii 250 mg 250 mg PO BID #14 caps 10/22/21 capsule abiraterone 250 mg tablet (Zytiga) 1,000 mg PO QAM #120 tabs 10/22/21 acetaminophen 325 mg tablet 650 mg PO Q4H PRN pain #30 tabs 10/22/21 amoxicillin 500 mg capsule 500 mg PO Q8H 2 days #6 caps 10/22/21 baclofen 10 mg tablet 20 mg PO QID #30 tabs 10/22/21 calcium carbonate 500 mg-vitamin 1 tab PO QAM #30 tabs 10/22/21 D3 10 mcg (400 unit) tablet (Calcium 500 With D) celecoxib 100 mg capsule 100 mg PO BID #14 caps 10/22/21 docusate sodium 50 mg capsule 50 mg PO QAM #30 caps 10/22/21 dorzolamide 22.3 mg-timolol 6.8 1 drp OPB BID #10 mL 10/22/21 mg/mL eye drops gabapentin 100 mg capsule 100 mg PO HS #30 caps 10/22/21 lisinopril 10 mg tablet 10 mg PO QAM #30 tabs 10/22/21 metoprolol succinate 25 mg 12.5 mg PO BID #60 tabs 10/22/21 tablet,extended release 24 hr (Toprol XL) oxycodone 10 mg tablet 10 mg PO .q6 prn PRN pain #14 tabs 10/22/21 prednisone 5 mg tablet 5 mg PO QAM #30 tabs 10/22/21 rivaroxaban 20 mg tablet (Xarelto) 20 mg PO QAM #30 tabs 10/22/21 timolol maleate (PF) 0.5 % eye 1 drp OPB BID #60 ea 10/22/21 drops in a dropperette travoprost 0.004 % eye drops 1 drp OPB HS #5 mL 10/22/21 (Travatan Z) alfuzosin 10 mg tablet,extended 10 mg PO DAILY #90 tabs 12/03/21 release 24 hr (Uroxatral) Results & Data (ED) Vital Signs Vital Signs - 24 hr 12/20/21 06:47 12/20/21 07:34 12/20/21 08:05 Temperature 36.4 C L Temperature Source Temporal Artery Scan Pulse Rate 109 H Pulse Rate [Apical] 95 H Respiratory Rate 14 18 Respiratory Effort / Characteristics Non-Labored Spontaneous Respiratory Depth Normal Blood Pressure 134/80 Blood Pressure [Left Arm] 126/62 Blood Pressure Mean 98 Blood Pressure Mean [Left Arm] 83 Blood Pressure Position Sitting Pulse Oximetry 98 100 99 Oxygen Delivery Method Nasal Cannula Nasal Cannula Nasal Cannula Oxygen Flow Rate 4 4 4 Sepsis Recent Fever Within 48 Hours No Sepsis New/Unexplained Change in Mental Status No Sepsis Action Taken by Nursing No Action Required Laboratory Data Result diagrams: 12/20/21 07:00 12/20/21 07:00 Lab Results 12/20/21 12/20/21 12/20/21 Range/Units 07:00 07:00 07:00 WBC 7.16 (4.8-10.8) K/ul RBC 4.11 L (4.63-6.08) M/uL Hgb 10.8 L (14.0-18.0) g/dl Hct 34.4 L (40.1-51.0) % MCV 83.7 (80.0-100.0) fL MCH 26.3 (25.0-34.0) pg MCHC 31.4 L (32.0-36.0) g/dL RDW Std Deviation 44.0 (36.4-46.3) fL RDW Coeff of Luis Angel 14.4 (11.5-14.5) % Plt Count 218 (130-400) K/uL MPV 9.8 (9.4-12.4) fL Immature Gran % (Auto) 0.4 % Neut % (Auto) 63.4 % Lymph % (Auto) 20.0 % [place] % (Auto) 13.4 % Eos % (Auto) 2.4 % Baso % (Auto) 0.4 % Neut # (Auto) 4.54 (1.4-6.5) K/uL Lymph # (Auto) 1.43 (1.2-3.4) K/uL [place] # (Auto) 0.96 H (0.24-0.82) K/uL Eos # (Auto) 0.17 (0-0.50) K/uL Baso # (Auto) 0.03 (0-0.2) K/uL Immature Gran # (Auto) 0.03 H (0.00-0.02) K/uL PT Cancelled INR Cancelled APTT Cancelled PTT Ratio Cancelled Sodium 140 (136-145) mmol/L Potassium 3.7 (3.5-5.1) mmol/L Chloride 108 H (98-107) mmol/L Carbon Dioxide 28 (21-32) mmol/L Anion Gap 4 (3-11) BUN 28 H (6-23) mg/dl Creatinine 1.35 (0.6-1.4) mg/dl Est Cr Clr Drug Dosing Not Reportable Est GFR ( Amer) 57.9 ml/min Est GFR (Non-Af Amer) 49.9 ml/min BUN/Creatinine Ratio 20.7 H (10-20) Glucose 92 (70-99(Fasting)) mg/dl Calcium 8.0 L (8.5-10.1) mg/dl Total Bilirubin 0.5 (0.2-1.0) mg/dl AST 11 L (13-39) U/L ALT 8 (7-52) U/L Alkaline Phosphatase 110 H (34-104) U/L Troponin I High Sens 13.6 D (0-20) pg/ml Total Protein 5.7 L (6.0-8.3) gm/dl Albumin 3.2 L (3.4-5.0) gm/dl Globulin 2.5 (2.5-4.0) gm/dl Albumin/Globulin Ratio 1.3 (0.9-2) SARS-CoV-2, RNA, NAAT (NEGATIVE) 12/20/21 12/20/21 Range/Units 07:10 07:29 WBC (4.8-10.8) K/ul RBC (4.63-6.08) M/uL Hgb (14.0-18.0) g/dl Hct (40.1-51.0) % MCV (80.0-100.0) fL MCH (25.0-34.0) pg MCHC (32.0-36.0) g/dL RDW Std Deviation (36.4-46.3) fL RDW Coeff of Luis Angel (11.5-14.5) % Plt Count (130-400) K/uL MPV (9.4-12.4) fL Immature Gran % (Auto) % Neut % (Auto) % Lymph % (Auto) % [place] % (Auto) % Eos % (Auto) % Baso % (Auto) % Neut # (Auto) (1.4-6.5) K/uL Lymph # (Auto) (1.2-3.4) K/uL [place] # (Auto) (0.24-0.82) K/uL Eos # (Auto) (0-0.50) K/uL Baso # (Auto) (0-0.2) K/uL Immature Gran # (Auto) (0.00-0.02) K/uL PT 13.1 H INR 1.2 H APTT 29.6 PTT Ratio 1.1 Sodium (136-145) mmol/L Potassium (3.5-5.1) mmol/L Chloride (98-107) mmol/L Carbon Dioxide (21-32) mmol/L Anion Gap (3-11) BUN (6-23) mg/dl Creatinine (0.6-1.4) mg/dl Est Cr Clr Drug Dosing Est GFR ( Amer) ml/min Est GFR (Non-Af Amer) ml/min BUN/Creatinine Ratio (10-20) Glucose (70-99(Fasting)) mg/dl Calcium (8.5-10.1) mg/dl Total Bilirubin (0.2-1.0) mg/dl AST (13-39) U/L ALT (7-52) U/L Alkaline Phosphatase (34-104) U/L Troponin I High Sens (0-20) pg/ml Total Protein (6.0-8.3) gm/dl Albumin (3.4-5.0) gm/dl Globulin (2.5-4.0) gm/dl Albumin/Globulin Ratio (0.9-2) SARS-CoV-2, RNA, NAAT POSITIVE A* (NEGATIVE) Imaging Data Radiologist's Impression: Chest X-Ray 12/20/21 06:52 XR chest 1V portable CLINICAL HISTORY: Atypical chest pain. Fall. COMPARISON STUDY: Chest radiograph October 17, 2021. Chest CT May 15, 2015. FINDINGS: Lung volumes are mildly diminished. This may account for slight interstitial prominence. Elevation of the right hemidiaphragm has slightly increased. Right basilar opacity represents atelectasis. Cardiomediastinal silhouette is stable. There is no pneumothorax or pleural effusion. No evidence for pulmonary edema. Intracanalicular electrodes are incidentally noted. IMPRESSION: No acute cardiopulmonary findings. ACT 112: Negative or not required by law. Electronically signed by: Benigno Turner M.D. 12/20/2021 8:[address] 12/20/21 06:53 CT OF THE HEAD WITHOUT CONTRAST CLINICAL HISTORY: Fall. COMPARISON STUDY: Head CT October 17, 2021. CT DOSE: 687.98 mGy.cm TECHNIQUE: Helical axial images of the head were obtained without IV contrast. Automated exposure control was utilized for the study. A dose lowering technique was utilized adhering to the principles of ALARA. FINDINGS: No acute intracranial hemorrhage, midline shift or mass effect is present. White matter hypodensities are similar to prior exam and favor small vessel disease. The ventricular system is unremarkable. The basal cisterns are patent. No extra-axial collections are present. There are no findings to suggest acute dural sinus thrombosis or acute territorial infarct. No significant calvarial abnormalities are present. Visualized portions of the sinuses and mastoid air cells are clear. IMPRESSION: 1. No acute intracranial findings. No change in appearance of the brain. 2. No acute calvarial fracture. ACT 112: Negative or not required by law. Electronically signed by: Benigno Turner M.D. 12/20/2021 7:30 AM Hip/Pelvis X-Ray 12/20/21 06:54 XR hip SHAHNAZ 2v w pelvis CLINICAL HISTORY: Fall. COMPARISON STUDY: CT of the abdomen and pelvis October 12, 2021. FINDINGS: Alignment of the bilateral total hip arthroplasties is anatomic. No acute fracture within the pelvis or hips is identified. There is no periprosthetic fracture. Pelvic surgical clips are noted. Stimulator device is partially imaged. Sacroiliac joints and symphysis pubis are intact. IMPRESSION: No acute fracture within the pelvis or hips. Intact bilateral total hip arthroplasties. ACT 112: Negative or not required by law. Electronically signed by: Benigno Turner M.D. 12/20/2021 8:05 AM Discharge Plan Visit Data Chief Complaint: Fall ED Provider: Jordy Jones Discharge Problem: COVID-19 Forms Stand Alone Forms: [facility] Prescriptions Prescriptions: No Action alfuzosin [Uroxatral] 10 mg tablet extended release 24 hr 10 mg PO DAILY Qty: 90 3RF Rx Instructions: administer after the same meal each day Lupron Depot (6 Month) 45 mg Syringe Kit 1 dose IM UD Rx Instructions: [id number] acetaminophen 325 mg Tablet 650 mg PO Q4H PRN (Reason: pain) Qty: 30 0RF amoxicillin 500 mg capsule 500 mg PO Q8H 2 Days Qty: 6 0RF prednisone 5 mg tablet 5 mg PO QAM Qty: 30 0RF travoprost [Travatan Z] 0.004 % Drops 1 drp OPB HS Qty: 5 0RF docusate sodium 50 mg Capsule 50 mg PO QAM Qty: 30 0RF baclofen 10 mg tablet 20 mg PO QID Qty: 30 0RF lisinopril 10 mg Tablet 10 mg PO QAM Qty: 30 0RF dorzolamide-timolol 22.3-6.8 mg/mL drops 1 drp OPB BID Qty: 10 0RF gabapentin 100 mg capsule 100 mg PO HS Qty: 30 0RF metoprolol succinate [Toprol XL] 25 mg tablet extended release 24 hr 12.5 mg PO BID Qty: 60 0RF timolol maleate (PF) 0.5 % Dropperette 1 drp OPB BID Qty: 60 0RF Saccharomyces boulardii 250 mg capsule 250 mg PO BID Qty: 14 0RF calcium carbonate-vitamin D3 [Calcium 500 With D] 500 mg(1,250mg) -400 unit Tablet 1 tab PO QAM Qty: 30 0RF oxycodone 10 mg tablet 10 mg PO .q6 prn PRN (Reason: pain) Qty: 14 0RF abiraterone [Zytiga] 250 mg Tablet 1,000 mg PO QAM Qty: 120 0RF Xarelto 20 mg Tablet 20 mg PO QAM Qty: 30 0RF celecoxib 100 mg capsule 100 mg PO BID Qty: 14 0RF Referrals Referrals: Clifford Gandhi DO [Primary Care Provider] -
[2021-12-20 07:16] LABS: Basophils # (auto) 0.03 K/uL (0-0.2); Basophils % (auto) 0.4 %; Eosinophils # (auto) 0.17 K/uL (0-0.50); Eosinophils % (auto) 2.4 %; Hematocrit (blood only) 34.4 % (40.1-51.0); Hemoglobin 10.8 g/dl (14.0-18.0); Immature Granulocytes # (auto) 0.03 K/uL (0.00-0.02); Immature Granulocytes % (auto) 0.4 %; Lymphocytes # (auto) 1.43 K/uL (1.2-3.4); Mean Corpuscular Hemoglobin 26.3 pg (25.0-34.0); Mean Corpuscular Hgb Conc 31.4 g/dL (32.0-36.0); Mean Corpuscular Volume 83.7 fL (80.0-100.0); Mean Platelet Volume 9.8 fL (9.4-12.4); Monocytes # (auto) 0.96 K/uL (0.24-0.82); Monocytes % (auto) 13.4 %; Neutrophils # (auto) 4.54 K/uL (1.4-6.5); Neutrophils % (auto) 63.4 %; Platelet Count 218 K/uL (130-400); RDW Coefficient of Variation 14.4 % (11.5-14.5); Red Blood Count 4.11 M/uL (4.63-6.08); White Blood Count 7.16 K/ul (4.8-10.8)
--- NOTE | 2021-12-20 07:32 | CT Scan Report ---
CT OF THE HEAD WITHOUT CONTRAST CLINICAL HISTORY: Fall. COMPARISON STUDY: Head CT October 17, 2021. CT DOSE: 687.98 mGy.cm TECHNIQUE: Helical axial images of the head were obtained without IV contrast. Automated exposure con trol was utilized for the study. A dose lowering technique was utilized adhering to the principles o f ALARA. FINDINGS: No acute intracranial hemorrhage, midline shift or mass effect is present. White matter hyp odensities are similar to prior exam and favor small vessel disease. The ventricular system is unrema rkable. The basal cisterns are patent. No extra-axial collections are present. There are no findings to suggest acute dural sinus thrombosis or acute territorial infarct. No significant calvarial abnorm alities are present. Visualized portions of the sinuses and mastoid air cells are clear. IMPRESSION: 1. No acute intracranial findings. No change in appearance of the brain. 2. No acute calvarial fracture. ACT 112: Negative or not required by law. Electronically signed by: Benigno Turner M.D. 12/20/2021 7:30 AM
[2021-12-20 07:43] LABS: Alanine Aminotransferase 8 U/L (7-52); Albumin Globulin Ratio 1.3 (0.9-2); Albumin Level 3.2 gm/dl (3.4-5.0); Alkaline Phosphatase 110 U/L (34-104); Anion Gap 4 (3-11); Aspartate Aminotransferase 11 U/L (13-39); BUN Creatinine Ratio 20.7 (10-20); Bilirubin,Total 0.5 mg/dl (0.2-1.0); Blood Urea Nitrogen 28 mg/dl (6-23); Carbon Dioxide 28 mmol/L (21-32); Chloride 108 mmol/L (98-107); Est GFR (African American) 57.9 ml/min; Est GFR (Non-African American) 49.9 ml/min; Globulin 2.5 gm/dl (2.5-4.0); Glucose 92 mg/dl (70-99(Fasting)); Potassium 3.7 mmol/L (3.5-5.1); Sodium 140 mmol/L (136-145); Total Protein 5.7 gm/dl (6.0-8.3)
[2021-12-20 07:48] LABS: Troponin I High Sensitivity 13.6 pg/ml (0-20)
--- NOTE | 2021-12-20 08:05 | XRay Report ---
XR chest 1V portable CLINICAL HISTORY: Atypical chest pain. Fall. COMPARISON STUDY: Chest radiograph October 17, 2021. Chest CT May 15, 2015. FINDINGS: Lung volumes are mildly diminished. This may account for slight interstitial prominence. El evation of the right hemidiaphragm has slightly increased. Right basilar opacity represents atelectas is. Cardiomediastinal silhouette is stable. There is no pneumothorax or pleural effusion. No evidence for pulmonary edema. Intracanalicular electrodes are incidentally noted. IMPRESSION: No acute cardiopulmonary findings. ACT 112: Negative or not required by law. Electronically signed by: Benigno Turner M.D. 12/20/2021 8:04 AM
--- NOTE | 2021-12-20 08:07 | XRay Report ---
XR hip SHAHNAZ 2v w pelvis CLINICAL HISTORY: Fall. COMPARISON STUDY: CT of the abdomen and pelvis October 12, 2021. FINDINGS: Alignment of the bilateral total hip arthroplasties is anatomic. No acute fracture within t he pelvis or hips is identified. There is no periprosthetic fracture. Pelvic surgical clips are noted . Stimulator device is partially imaged. Sacroiliac joints and symphysis pubis are intact. IMPRESSION: No acute fracture within the pelvis or hips. Intact bilateral total hip arthroplasties. ACT 112: Negative or not required by law. Electronically signed by: Benigno Turner M.D. 12/20/2021 8:05 AM
[2021-12-20 08:09] LABS: INR 1.2 (0.9-1.1); Partial Thromboplastin Ratio 1.1; Partial Thromboplastin Time 29.6 Seconds (21.0-31.0); Prothrombin Time 13.1 Seconds (9.0-12.0)
[2021-12-20] MEDS ORDERED: MAGNESIUM HYDROXIDE SUSP 30 ML UDC PO PRN (10:22)
[2021-12-20] MEDS ORDERED: ACETAMINOPHEN 325 MG TAB PO PRN ×2 (10:22)
[2021-12-20] MEDS ORDERED: POLYETHYLENE (MIRALAX) 17 GM PACK PO PRN (10:22)
[2021-12-20] MEDS ORDERED: predniSONE 5 MG TAB PO SCH (10:22)
[2021-12-20] MEDS ORDERED: NITROGLYCERIN SL 0.4 MG/TAB TAB SL PRN (10:22)
[2021-12-20] MEDS ORDERED: dexAMETHasone 4 MG TAB PO SCH (11:00)
--- NOTE | 2021-12-20 12:15 | History & Physical Report ---
Date of Service December 20, 2021 Assessment & Plan (1) Ambulatory dysfunction: (2) OMID (acute kidney injury): (3) Paroxysmal atrial fibrillation: (4) COVID-19: (5) Hypertension: (6) Prostate cancer: Plan This is a 76-year-old male who has a significant past medical history of pr ostate cancer, bladder cancer, history of AAA, HTN, osteoporosis, history of cervical spine surgery, lumbar spinal stenosis status post spinal cord stimulator placement, chronic left foot drop, GERD, history of PE status post IVC filter, chronic right arm tremor and history of PMR who presents to ED with recurrent fall. Last admission 10/17-10/22 for E. coli bacteremia, ambulatory dysfunction. Ambulatory dysfunction, Recurrent Falls Chronic Neck/Low back pain in setting of LSS with nerve stimulatory Chronic L foot drop -Lives with his at home. Multiple falls since his discharge from rehab. -PT OT; continue home pain medication and muscle relaxant. Covid 19 infection Diagnosed on 12/09; has dry cough. Chest x-ray no infiltrate Was placed on oxygen intermittently in ED; on room air after arrival to floor. Received 1 dose of dexamethasone 6 mg; will resume his home prednisone from tomorrow. OMID, likely pre-renal Creatinine 1.35 on admission CK within normal limit On gentle hydration. Holding lisinopril for now. Obtaining renal ultrasound and renal lytes History of Libby jacobs Underwent DCCV on 10/16; continue on metoprolol and Xarelto. Echo on 10/11 showed EF of 65 to 70%; no significant valvular heart disease. Prostate Cancer, hx of bladder cancer, chronic incontinence - currently on lupron and zytiga; follows with urology - on low dose prednisone for h/o prostate Ca and PMR DVT prophylaxis Xarelto DNR/DNI; DispoPT OT ordered; will follow recommendation. updated at bedside. Admission and Anticipated Discharge Date Admission Date: December 20, 2021 History of Present Illness Chief Complaint: Mechanical fall Recent COVID-19 infection Primary Care Provider: Clifford Gandhi DO History obtained from patient, patient's and records Past medical history of prostate cancer, bladder cancer, history of AAA, HTN, osteoporosis, history of cervical spine surgery, lumbar spinal stenosis status post spinal cord stimulator placement, chronic left foot drop, GERD, history of PE status post IVC filter, chronic right arm tremor and history of PMR Last confinement was in September and early October; was treated for E. coli bacteremia and ambulatory dysfunction. Treated with IV ceftriaxone for 14 days and was discharged to subacute rehab ([facility]) Patient returned from [facility] after staying there for 2 weeks. He lives with his who is also his POA in the same house. Patient has been having multiple falls; approximately twice a week since his discharge due to ambulatory dysfunction. He has home health nurse, PT OT coming to his house to continue with his rehabilitation. He was diagnosed with COVID-19 infection along with his on 12/09. He has dry cough since the diagnosis and has been feeling more weak. Last night, patient went to the bathroom and fell down on his knees; was unable to get up by himself. His found him shouting on the bathroom floor; call the police as he was unable to get him up. He denies loss of consciousness. He has bruises all over his body due to multiple falls over the last few weeks. He had a chest x-ray done on 12/18 due to persistent cough; negative for infiltrate. X-ray of his left ankle was done on the same as patient had been complaining of pain; possible hairline fracture. Patient was referred to orthopedic which he has appointment for October 22. Patient denies fever, chills, chest pain, shortness of breath, abdominal pain or urinary symptoms. In the ED, he was afebrile, normotensive and was at 4 L/min of nasal cannula. Creatinine is slightly elevated to 1.35. COVID-19 was positive. Chest x-ray did not show any abnormality. Total CK was normal. CBC shows hemoglobin of 10.87, stable. Patient was admitted to telemetry floor for further management. Allergies Allergy/AdvReac Type Severity Reaction Status Date / Time adalimumab Allergy Severe GI SYMPTOMS Verified 10/08/21 16:58 mirabegron Allergy Intermediate NEUROLOGICAL Verified 10/08/21 16:58 SYMPTOMS/STOMACH PAINS methotrexate Allergy Unknown Blood Verified 10/08/21 16:58 platelets drop. naproxen Allergy Unknown dilusional Verified 10/08/21 16:58 Home Medications Medication Instructions Recorded Confirmed Type leuprolide acetate (6 month) 45 mg 1 dose IM UD 01/26/18 12/20/21 History intramuscular syringe kit (Lupron Depot) Saccharomyces boulardii 250 mg 250 mg PO BID #14 caps 10/22/21 12/20/21 Rx capsule abiraterone 250 mg tablet (Zytiga) 1,000 mg PO QAM #120 tabs 10/22/21 12/20/21 Rx acetaminophen 325 mg tablet 650 mg PO Q4H PRN pain #30 tabs 10/22/21 12/20/21 Rx baclofen 10 mg tablet 20 mg PO QID #30 tabs 10/22/21 12/20/21 Rx calcium carbonate 500 mg-vitamin 1 tab PO QAM #30 tabs 10/22/21 12/20/21 Rx D3 10 mcg (400 unit) tablet (Calcium 500 With D) celecoxib 100 mg capsule 100 mg PO BID #14 caps 10/22/21 12/20/21 Rx docusate sodium 50 mg capsule 50 mg PO QAM #30 caps 10/22/21 12/20/21 Rx dorzolamide 22.3 mg-timolol 6.8 1 drp OPB BID #10 mL 10/22/21 12/20/21 Rx mg/mL eye drops gabapentin 100 mg capsule 100 mg PO HS #30 caps 10/22/21 12/20/21 Rx lisinopril 10 mg tablet 10 mg PO QAM #30 tabs 10/22/21 12/20/21 Rx metoprolol succinate 25 mg 12.5 mg PO BID #60 tabs 10/22/21 12/20/21 Rx tablet,extended release 24 hr (Toprol XL) oxycodone 10 mg tablet 10 mg PO .q6 prn PRN pain #14 tabs 10/22/21 12/20/21 Rx prednisone 5 mg tablet 5 mg PO QAM #30 tabs 10/22/21 12/20/21 Rx rivaroxaban 20 mg tablet (Xarelto) 20 mg PO QAM #30 tabs 10/22/21 12/20/21 Rx timolol maleate (PF) 0.5 % eye 1 drp OPB BID #60 ea 10/22/21 12/20/21 Rx drops in a dropperette travoprost 0.004 % eye drops 1 drp OPB HS #5 mL 10/22/21 12/20/21 Rx (Travatan Z) alfuzosin 10 mg tablet,extended 10 mg PO DAILY #90 tabs 12/03/21 12/20/21 Rx release 24 hr (Uroxatral) Past Med/Surg History Medical History (Updated 12/20/21 @ 08:36 by Jordy Jones DO) Abdominal aortic aneurysm per 05/25/17 CT: "Focal outpouchings of the juxtarenal and infrarenal abdominal aorta, 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 The infrarenal lesion currently measures 33 mm in maximum diameter from the center line, unchanged in size when compared to the most recent prior examination of 08/11/2016 but is enlarged when compared to more remote examination of 11/13/2014. The juxtarenal lesion appears unchanged when compared to prior examination of 11/13/2014 measuring 26 mm in maximum axial diameter on both examinations." Chronic back pain LEFT LEG Deep vein thrombosis S/P LEG INJURY 2014 Dysuria Glaucoma [place] filter in place 2014 H/O prostate cancer S/P PROSTATECTOMY 2006 History of bladder cancer s/p TURBT 06/2016 History of ITP 2013, tx with prednisone Malignant neoplasm of urinary bladder On anticoagulant therapy Osteoarthritis Overactive bladder Prostate cancer Pulmonary embolism FROM DVT 2014 Sleep apnea CPAP Transient ischemic attack (TIA) HX, COUPLE YEARS AGO, UNCLEAR IF ACTUAL TIA. PT ON XARELTO NOW FOR DVT/PE HX. Surgical History H/O shoulder surgery RIGHT History of bladder surgery TURBT 06/2016 History of laminectomy History of prostatectomy S/P PROSTATE CANCER 2005- s/p radiation and prostatectomy. Recurrent disease found in lymph node 2014. On hormone therapy. History of total hip arthroplasty R/L Hx of cervical spine surgery ANTERIOR Family History Mother Alzheimer disease Father Aortic aneurysm Other Family history non-contributory Social History Smoking Status: Never smoker Tobacco Type: Cigarettes Cigarettes Per Day: 1 PACK OF MINI-CIGARS PER MONTH; Second Hand Exposure: No; Do You Dip or Chew Tobacco: No; Tobacco Cessation Education Requested by Patient: No Hx Alcohol Use: No Hx Substance Use: No Preferred Language: [place] Communication Ability: Effective Imaging Analyst Required: No Beliefs That Will Affect Care: None marital status: Current Living Situation: Spouse Other Information That Helps Us Care for You: No Feels Safe at Home: Yes Safety Concerns: Feels Safe At This Time Assistive Devices: Glasses Review of Systems Review of Systems: All systems reviewed & are unremarkable except as noted in Subjective Physical Exam Physical Exam: Constitutional: Lethargic but easily awake; able to answer questions appropriately. Respiratory: Bilateral clear breath sound Cardiovascular: RRR, no murmur, no edema Vessels: no JVD or carotid bruit Chest: normal inspection of chest Abdomen: normal bowel sounds, soft, nontender, no hepatosplenomegaly Musculoskeletal: Left ankle is swollen along with left leg; nontender to palpation. Skin: Multiple bruises present all over his body; especially in elbow and knees. Neurologic: Awake, alert/oriented. Nonfocal Psychiatric: A+Ox3, euthymic affect Lymphatic: no cervical or axillary lymphadenopathy : deferred Results & Data Results & Data ([facility]) Vital Signs (Past 12 Hours) Vital Signs Temp Pulse Pulse Resp BP BP Pulse Ox 12/20/21 11:00 12/20/21 10:22 36.9 C 75 16 131/77 98 12/20/21 10:22 12/20/21 09:52 81 20 140/90 97 12/20/21 09:49 78 18 140/90 100 12/20/21 08:49 93 H 20 133/103 H 99 12/20/21 08:05 99 12/20/21 07:34 95 H 18 126/62 100 12/20/21 06:47 36.4 C L 109 H 14 134/80 98 Pulse Ox O2 Del Method O2 Del Method O2 Flow Rate O2 Flow Rate 12/20/21 11:00 96 Room Air 12/20/21 10:22 Nasal Cannula 2 12/20/21 10:22 98 Nasal Cannula 2 12/20/21 09:52 Nasal Cannula 2 12/20/21 09:49 Nasal Cannula 2 12/20/21 08:49 Nasal Cannula 4 12/20/21 08:05 Nasal Cannula 4 12/20/21 07:34 Nasal Cannula 4 12/20/21 06:47 Nasal Cannula 4 Laboratory Results Laboratory Results WBC 7.16 K/ul (4.8-10.8) 12/20/21 07:00 RBC 4.11 M/uL (4.63-6.08) L 12/20/21 07:00 Hgb 10.8 g/dl (14.0-18.0) L 12/20/21 07:00 Hct 34.4 % (40.1-51.0) L 12/20/21 07:00 MCV 83.7 fL (80.0-100.0) 12/20/21 07:00 MCH 26.3 pg (25.0-34.0) 12/20/21 07:00 MCHC 31.4 g/dL (32.0-36.0) L 12/20/21 07:00 RDW Std Deviation 44.0 fL (36.4-46.3) 12/20/21 07:00 RDW Coeff of Luis Angel 14.4 % (11.5-14.5) 12/20/21 07:00 Plt Count 218 K/uL (130-400) 12/20/21 07:00 MPV 9.8 fL (9.4-12.4) 12/20/21 07:00 Immature Gran % (Auto) 0.4 % 12/20/21 07:00 Neut % (Auto) 63.4 % 12/20/21 07:00 Lymph % (Auto) 20.0 % 12/20/21 07:00 Yancey % (Auto) 13.4 % 12/20/21 07:00 Eos % (Auto) 2.4 % 12/20/21 07:00 Baso % (Auto) 0.4 % 12/20/21 07:00 Neut # (Auto) 4.54 K/uL (1.4-6.5) 12/20/21 07:00 Lymph # (Auto) 1.43 K/uL (1.2-3.4) 12/20/21 07:00 Yancey # (Auto) 0.96 K/uL (0.24-0.82) H 12/20/21 07:00 Eos # (Auto) 0.17 K/uL (0-0.50) 12/20/21 07:00 Baso # (Auto) 0.03 K/uL (0-0.2) 12/20/21 07:00 Immature Gran # (Auto) 0.03 K/uL (0.00-0.02) H 12/20/21 07:00 PT 13.1 Seconds (9.0-12.0) H 12/20/21 07: INR 1.2 (0.9-1.1) H 12/20/21 07: APTT 29.6 Seconds (21.0-31.0) 12/20/21 07: PTT Ratio 1.1 12/20/21 07:29 Sodium 140 mmol/L (136-145) 12/20/21 07:00 Potassium 3.7 mmol/L (3.5-5.1) 12/20/21 07:00 Chloride 108 mmol/L (98-107) H 12/20/21 07:00 Carbon Dioxide 28 mmol/L (21-32) 12/20/21 07:00 Anion Gap 4 (3-11) 12/20/21 07:00 BUN 28 mg/dl (6-23) H 12/20/21 07:00 Creatinine 1.35 mg/dl (0.6-1.4) 12/20/21 07:00 Est Cr Clr Drug Dosing Not Reportable 12/20/21 07:00 Est GFR ( Amer) 57.9 ml/min 12/20/21 07:00 Est GFR (Non-Af Amer) 49.9 ml/min 12/20/21 07:00 BUN/Creatinine Ratio 20.7 (10-20) H 12/20/21 07:00 Glucose 92 mg/dl (70-99(Fasting)) 12/20/21 07:00 Calcium 8.0 mg/dl (8.5-10.1) L 12/20/21 07:00 Total Bilirubin 0.5 mg/dl (0.2-1.0) 12/20/21 07:00 AST 11 U/L (13-39) L 12/20/21 07:00 ALT 8 U/L (7-52) 12/20/21 07:00 Alkaline Phosphatase 110 U/L (34-104) H 12/20/21 07:00 Total Creatine Kinase 84 U/L (30-223) 12/20/21 10:50 Troponin I High Sens 13.6 pg/ml (0-20) D 12/20/21 07:00 Total Protein 5.7 gm/dl (6.0-8.3) L 12/20/21 07:00 Albumin 3.2 gm/dl (3.4-5.0) L 12/20/21 07:00 Globulin 2.5 gm/dl (2.5-4.0) 12/20/21 07:00 Albumin/Globulin Ratio 1.3 (0.9-2) 12/20/21 07:00 SARS-CoV-2, RNA, NAAT POSITIVE (NEGATIVE) A* 12/20/21 07:10 Impressions Chest X-Ray 12/20/21 06:52 XR chest 1V portable CLINICAL HISTORY: Atypical chest pain. Fall. COMPARISON STUDY: Chest radiograph October 17, 2021. Chest CT May 15, 2015. FINDINGS: Lung volumes are mildly diminished. This may account for slight interstitial prominence. Elevation of the right hemidiaphragm has slightly increased. Right basilar opacity represents atelectasis. Cardiomediastinal silhouette is stable. There is no pneumothorax or pleural effusion. No evidence for pulmonary edema. Intracanalicular electrodes are incidentally noted. IMPRESSION: No acute cardiopulmonary findings. ACT 112: Negative or not required by law. Electronically signed by: Benigno Turner M.D. 12/20/2021 8:[address] 12/20/21 06:53 CT OF THE HEAD WITHOUT CONTRAST CLINICAL HISTORY: Fall. COMPARISON STUDY: Head CT October 17, 2021. CT DOSE: 687.98 mGy.cm TECHNIQUE: Helical axial images of the head were obtained without IV contrast. Automated exposure control was utilized for the study. A dose lowering technique was utilized adhering to the principles of ALARA. FINDINGS: No acute intracranial hemorrhage, midline shift or mass effect is present. White matter hypodensities are similar to prior exam and favor small vessel disease. The ventricular system is unremarkable. The basal cisterns are patent. No extra-axial collections are present. There are no findings to suggest acute dural sinus thrombosis or acute territorial infarct. No significant calvarial abnormalities are present. Visualized portions of the sinuses and mastoid air cells are clear. IMPRESSION: 1. No acute intracranial findings. No change in appearance of the brain. 2. No acute calvarial fracture. ACT 112: Negative or not required by law. Electronically signed by: Benigno Turner M.D. 12/20/2021 7:30 AM Hip/Pelvis X-Ray 12/20/21 06:54 XR hip SHAHNAZ 2v w pelvis CLINICAL HISTORY: Fall. COMPARISON STUDY: CT of the abdomen and pelvis October 12, 2021. FINDINGS: Alignment of the bilateral total hip arthroplasties is anatomic. No acute fracture within the pelvis or hips is identified. There is no periprosthetic fracture. Pelvic surgical clips are noted. Stimulator device is partially imaged. Sacroiliac joints and symphysis pubis are intact. IMPRESSION: No acute fracture within the pelvis or hips. Intact bilateral total hip arthroplasties. ACT 112: Negative or not required by law. Electronically signed by: Benigno Turner M.D. 12/20/2021 8:05 AM Code Status & VTE Plan VTE Prophylaxis Plan VTE Prophylaxis will be ordered: Yes
[2021-12-20] MEDS: BACLOFEN 20 MG TAB PO SCH ×4 (12:59→19:24)
[2021-12-20] MEDS: CALCIUM 600MG + VIT D 400 IU TAB PO SCH (12:59)
[2021-12-20] MEDS: ALFUZOSIN HCL 10 MG TAB PO SCH (12:59)
[2021-12-20] MEDS: DORZOLAMIDE/TIMOLOL 22.3/6.8MG/ML 10 ML BTL OPB SCH ×2 (13:00→21:06)
[2021-12-20] MEDS: METOPROLOL SUCC 25MG EXT REL TAB PO SCH ×2 (13:00→19:25)
[2021-12-20] MEDS: LACTATED RINGER'S 1,000 ML IV SCH (13:00)
[2021-12-20] MEDS: RIVAROXABAN 20 MG TAB PO SCH (13:00)
[2021-12-20] MEDS: SACCHAROMYCES BOULARDII 250 MG CAP PO SCH ×2 (13:00→19:24)
[2021-12-20] MEDS: ABIRATERONE ACETATE 250 MG PO SCH (13:01)
[2021-12-20] MEDS: DOCUSATE SODIUM 100 MG CAP PO SCH (13:01)
--- NOTE | 2021-12-20 13:37 | XRay Report ---
XR ankle LT min 3V routine CLINICAL HISTORY: Ankle swelling, concern for hairline fracture COMPARISON: Left tibia and fibula radiographs November 21, 2019. FINDINGS: Ankle soft tissue swelling is present. There is osteopenia. Mild medial ankle mortise wide cande is noted. There is lucency with cortical irregularity of the distal left fibula at the level of the ankle mortise. This is new since prior radiographs of November 21, 2019. A lucency within the me dial malleolus is likely artifactual. IMPRESSION: 1. Lucency with cortical irregularity of the distal left fibula at the level of the ankle mortise. Th is favors an age indeterminate minimally displaced fracture. Correlation with traumatic history is re commended. 2. Mild medial ankle mortise widening. Although this could be positional, ankle mortise injury cannot be excluded. 3. Lucency within the medial malleolus. This is likely artifactual although a nondisplaced fracture c ould appear similar. 4. Ankle soft tissue swelling. 5. Osteopenia. ACT 112: Negative or not required by law. Electronically signed by: Benigno Turner M.D. 12/20/2021 1:35 PM
[2021-12-20] MEDS: oxyCODONE HCL IR 5 MG TAB (IMMEDIATE RELEASE) PO PRN ×2 (19:24→23:44)
[2021-12-20] MEDS: GABAPENTIN 100 MG CAP PO SCH (19:27)
[2021-12-20] MEDS: TRAVOPROST Z 0.004% OPH SOLN 2.5 ML BTL OPB SCH (21:06)
[2021-12-21] MEDS ORDERED: SODIUM CHLORIDE 0.65% NA SOLN 45 ML (OCEAN) PRN (00:48)
[2021-12-21] MEDS ORDERED: SODIUM CHLORIDE 0.65% NA SOLN 45 ML (OCEAN) ONE (00:50)
--- NOTE | 2021-12-21 05:16 | Electrocardiogram Report ---
Test Reason : Blood Pressure : / mmHG Vent. Rate : 091 BPM Atrial Rate : 111 BPM P-R Int : 000 ms QRS Dur : 080 ms QT Int : 370 ms P-R-T Axes : 000 -14 008 degrees QTc Int : 455 ms Atrial fibrillation Low voltage QRS Septal infarct (cited on or before 17-OCT-2021) Nonspecific T wave abnormality Abnormal ECG When compared with ECG of 17-OCT-2021 10:38, Atrial fibrillation has replaced Sinus rhythm Vent. rate has increased BY 35 BPM Questionable change in initial forces of Septal leads Nonspecific T wave abnormality, improved in Anterior leads Confirmed by Johnny Segal ([id number]) on 12/21/2021 5:15:49 AM Referred By: REFERRED SELF Confirmed By:Johnny Segal
[2021-12-21] MEDS: oxyCODONE HCL IR 5 MG TAB (IMMEDIATE RELEASE) PO PRN ×3 (06:11→22:40)
[2021-12-21 08:57] LABS: Basophils # (auto) 0.03 K/uL (0-0.2); Basophils % (auto) 0.3 %; Eosinophils # (auto) 0.18 K/uL (0-0.50); Eosinophils % (auto) 1.7 %; Hematocrit (blood only) 38.8 % (40.1-51.0); Hemoglobin 12.5 g/dl (14.0-18.0); Immature Granulocytes # (auto) 0.04 K/uL (0.00-0.02); Immature Granulocytes % (auto) 0.4 %; Lymphocytes # (auto) 0.99 K/uL (1.2-3.4); Lymphocytes % (auto) 9.4 %; Mean Corpuscular Hemoglobin 26.1 pg (25.0-34.0); Mean Corpuscular Hgb Conc 32.2 g/dL (32.0-36.0); Mean Platelet Volume 9.5 fL (9.4-12.4); Monocytes # (auto) 0.85 K/uL (0.24-0.82); Monocytes % (auto) 8.1 %; Neutrophils # (auto) 8.44 K/uL (1.4-6.5); Neutrophils % (auto) 80.1 %; Platelet Count 246 K/uL (130-400); RDW Coefficient of Variation 14.1 % (11.5-14.5); RDW Standard Deviation 41.1 fL (36.4-46.3); Red Blood Count 4.79 M/uL (4.63-6.08); White Blood Count 10.53 K/ul (4.8-10.8)
[2021-12-21] MEDS ORDERED: METOPROLOL SUCC 25MG EXT REL TAB PO SCH ×3 (09:00)
[2021-12-21] MEDS: predniSONE 5 MG TAB PO SCH (09:30)
[2021-12-21] MEDS: RIVAROXABAN 20 MG TAB PO SCH (09:31)
[2021-12-21] MEDS: SACCHAROMYCES BOULARDII 250 MG CAP PO SCH ×2 (09:31→20:15)
[2021-12-21] MEDS: ALFUZOSIN HCL 10 MG TAB PO SCH (09:32)
[2021-12-21] MEDS: DOCUSATE SODIUM 100 MG CAP PO SCH (09:32)
[2021-12-21] MEDS: CALCIUM 600MG + VIT D 400 IU TAB PO SCH (09:32)
[2021-12-21] MEDS: BACLOFEN 20 MG TAB PO SCH ×4 (09:32→20:14)
[2021-12-21 09:33] LABS: Alanine Aminotransferase 8 U/L (7-52); Albumin Globulin Ratio 1.3 (0.9-2); Albumin Level 3.5 gm/dl (3.4-5.0); Alkaline Phosphatase 120 U/L (34-104); Anion Gap 7 (3-11); Aspartate Aminotransferase 11 U/L (13-39); BUN Creatinine Ratio 24.4 (10-20); Bilirubin,Total 0.9 mg/dl (0.2-1.0); Blood Urea Nitrogen 22 mg/dl (6-23); Calcium 8.5 mg/dl (8.5-10.1); Carbon Dioxide 26 mmol/L (21-32); Chloride 108 mmol/L (98-107); Est GFR (African American) 94.5 ml/min; Est GFR (Non-African American) 81.5 ml/min; Globulin 2.8 gm/dl (2.5-4.0); Glucose 108 mg/dl (70-99(Fasting)); Potassium 3.6 mmol/L (3.5-5.1); Sodium 141 mmol/L (136-145); Total Protein 6.3 gm/dl (6.0-8.3)
[2021-12-21] MEDS: DORZOLAMIDE/TIMOLOL 22.3/6.8MG/ML 10 ML BTL OPB SCH ×2 (09:34→22:17)
[2021-12-21] MEDS: LACTATED RINGER'S 1,000 ML IV SCH (09:48)
[2021-12-21] MEDS: ABIRATERONE ACETATE 250 MG PO SCH (09:55)
[2021-12-21 10:35] LABS: Appearance Urine Clear (Clear); Bacteria Urine Automated Negative (Negative); Bilirubin Urine Negative (Negative); Blood Urine Negative (Negative); Color Urine Yellow; Epithelial Cell Urine Auto 0-5 /lpf (0-5); Glucose Urine UA Negative (Negative); Ketones Urine 1+ (Negative); Leukocyte Esterase Urine Negative (Negative); Nitrite Urine Negative (Negative); RBC Urine Automated 0-4 /hpf (0-4); Specific Gravity Urine 1.015 (1.000-1.030); Urobilinogen Urine Negative (Negative); WBC Urine Automated 0 /hpf (0-5); pH Urine 7.5 (4.5-7.5)
[2021-12-21 10:37] LABS: Protein Urine Trace (Negative)
[2021-12-21 10:47] LABS: Urine Potassium 38.3 mmol/L
--- NOTE | 2021-12-21 10:57 | Electrocardiogram Report ---
Test Reason : Blood Pressure : / mmHG Vent. Rate : 096 BPM Atrial Rate : 063 BPM P-R Int : 000 ms QRS Dur : 080 ms QT Int : 372 ms P-R-T Axes : 000 -18 042 degrees QTc Int : 469 ms Atrial fibrillation Low voltage QRS Nonspecific ST abnormality Abnormal ECG When compared with ECG of 20-DEC-2021 06:41, No significant change was found Confirmed by Artur Price ([id number]) on 12/21/2021 10:57:22 AM Referred By: REFERRED SELF Confirmed By:Leo rPice
--- NOTE | 2021-12-21 12:45 | Hospitalist Progress Note ---
Date of Service December 21, 2021 Assessment & Plan (1) Ambulatory dysfunction: (2) OMID (acute kidney injury): (3) Paroxysmal atrial fibrillation: (4) COVID-19: (5) Hypertension: (6) Prostate cancer: Plan This is a 76-year-old male who has a significant past medical history of pr ostate cancer, bladder cancer, history of AAA, HTN, osteoporosis, history of cervical spine surgery, lumbar spinal stenosis status post spinal cord stimulator placement, chronic left foot drop, GERD, history of PE status post IVC filter, chronic right arm tremor and history of PMR who presents to ED with recurrent fall. Last admission 10/17-10/22 for E. coli bacteremia, ambulatory dysfunction. Ambulatory dysfunction, Recurrent Falls Chronic Neck/Low back pain in setting of LSS with nerve stimulatory Chronic L foot drop -Lives with his at home. Multiple falls since his discharge from rehab. -PT OT; continue home pain medication and muscle relaxant. -X-ray of the left foot reviewed;Possible left distal fibula fracture. Orthopedic consulted. -Venous duplex pending. Covid 19 infection Diagnosed on 12/09; has dry cough. Chest x-ray no infiltrate Was placed on oxygen intermittently in ED; on room air after arrival to floor. Received 1 dose of dexamethasone 6 mg; on home dose of prednisone 5 mg once daily. OMID, likely pre-renal, resolved. Creatinine 1.35 on admission, downtrended after gentle hydration. CK within normal limit Renal ultrasound pending Atrial fibrillation with RVR Underwent DCCV on 10/16; continue on metoprolol and Xarelto. Echo on 10/11 showed EF of 65 to 70%; no significant valvular heart disease. Currently in A. fib with ventricular rate in 120s to 140s. Low Metoprolol increased to 25 mg twice daily. Cardiology on consult. Prostate Cancer, hx of bladder cancer, chronic incontinence - currently on lupron and zytiga; follows with urology - on low dose prednisone for h/o prostate Ca and PMR DVT prophylaxis Xarelto DNR/DNI; DispoPT OT ordered; will follow recommendation. updated at bedside. Admission and Anticipated Discharge Date Admission Date: December 20, 2021 Subjective Patient seen and examined at bedside. He is sitting up; not in any distress. He is awake alert oriented x3. He denies fever, chills, chest pain, shortness of breath, abdomen pain or urinary symptoms. Review of Systems Review of Systems: All systems reviewed & are unremarkable except as noted in Subjective Physical Exam Physical Exam: Constitutional: Awake, oriented x3 Respiratory: Bilateral clear breath sound Cardiovascular: RRR, no murmur, no edema Vessels: no JVD or carotid bruit Chest: normal inspection of chest Abdomen: normal bowel sounds, soft, nontender, no hepatosplenomegaly Musculoskeletal: Left ankle is swollen along with left leg; history of lymphedema as per patient. Nontender to palpation. Skin: Multiple bruises present all over his body; especially in elbow and knees. Neurologic: Awake, alert/oriented. History of left foot drop. Psychiatric: A+Ox3, euthymic affect Lymphatic: no cervical or axillary lymphadenopathy : deferred Results & Data Results & Data ([facility]) Vital Signs (Past 12 Hours) Vital Signs Temp Pulse Resp BP Pulse Ox O2 Del Method 12/21/21 09:15 111 H 12/21/21 08:00 Room Air 12/21/21 08:17 36.7 C 52 L 20 152/86 H 95 Room Air 12/21/21 07:42 36.4 C L 72 20 166/85 H 95 Room Air 12/21/21 03:28 36.6 C 81 18 155/86 H 92 Room Air Laboratory Results Laboratory Results WBC 10.53 K/ul (4.8-10.8) 12/21/21 08:13 RBC 4.79 M/uL (4.63-6.08) 12/21/21 08:13 Hgb 12.5 g/dl (14.0-18.0) L 12/21/21 08:13 Hct 38.8 % (40.1-51.0) L 12/21/21 08:13 MCV 81.0 fL (80.0-100.0) 12/21/21 08:13 MCH 26.1 pg (25.0-34.0) 12/21/21 08:13 MCHC 32.2 g/dL (32.0-36.0) 12/21/21 08:13 RDW Std Deviation 41.1 fL (36.4-46.3) 12/21/21 08:13 RDW Coeff of Luis Angel 14.1 % (11.5-14.5) 12/21/21 08:13 Plt Count 246 K/uL (130-400) 12/21/21 08:13 MPV 9.5 fL (9.4-12.4) 12/21/21 08:13 Immature Gran % (Auto) 0.4 % 12/21/21 08:13 Neut % (Auto) 80.1 % 12/21/21 08:13 Lymph % (Auto) 9.4 % 12/21/21 08:13 [place] % (Auto) 8.1 % 12/21/21 08:13 Eos % (Auto) 1.7 % 12/21/21 08:13 Baso % (Auto) 0.3 % 12/21/21 08:13 Neut # (Auto) 8.44 K/uL (1.4-6.5) H 12/21/21 08:13 Lymph # (Auto) 0.99 K/uL (1.2-3.4) L 12/21/21 08:13 [place] # (Auto) 0.85 K/uL (0.24-0.82) H 12/21/21 08:13 Eos # (Auto) 0.18 K/uL (0-0.50) 12/21/21 08:13 Baso # (Auto) 0.03 K/uL (0-0.2) 12/21/21 08:13 Immature Gran # (Auto) 0.04 K/uL (0.00-0.02) H 12/21/21 08:13 PT 13.1 Seconds (9.0-12.0) H 12/20/21 07:29 INR 1.2 (0.9-1.1) H 12/20/21 07:29 APTT 29.6 Seconds (21.0-31.0) 12/20/21 07:29 PTT Ratio 1.1 12/20/21 07:29 Sodium 141 mmol/L (136-145) 12/21/21 08:13 Potassium 3.6 mmol/L (3.5-5.1) 12/21/21 08:13 Chloride 108 mmol/L (98-107) H 12/21/21 08:13 Carbon Dioxide 26 mmol/L (21-32) 12/21/21 08:13 Anion Gap 7 (3-11) 12/21/21 08:13 BUN 22 mg/dl (6-23) 12/21/21 08:13 Creatinine 0.90 mg/dl (0.6-1.4) D 12/21/21 08:13 Est Cr Clr Drug Dosing Not Reportable 12/21/21 08:13 Est GFR ( Amer) 94.5 ml/min 12/21/21 08:13 Est GFR (Non-Af Amer) 81.5 ml/min 12/21/21 08:13 BUN/Creatinine Ratio 24.4 (10-20) H 12/21/21 08:13 Glucose 108 mg/dl (70-99(Fasting)) H 12/21/21 08:13 Calcium 8.5 mg/dl (8.5-10.1) 12/21/21 08:13 Total Bilirubin 0.9 mg/dl (0.2-1.0) 12/21/21 08:13 AST 11 U/L (13-39) L 12/21/21 08:13 ALT 8 U/L (7-52) 12/21/21 08:13 Alkaline Phosphatase 120 U/L (34-104) H 12/21/21 08:13 Total Creatine Kinase 84 U/L (30-223) 12/20/21 10:50 Troponin I High Sens 13.6 pg/ml (0-20) D 12/20/21 07:00 Total Protein 6.3 gm/dl (6.0-8.3) 12/21/21 08:13 Albumin 3.5 gm/dl (3.4-5.0) 12/21/21 08:13 Globulin 2.8 gm/dl (2.5-4.0) 12/21/21 08:13 Albumin/Globulin Ratio 1.3 (0.9-2) 12/21/21 08:13 Urine Color Yellow 12/21/21 09:50 Urine Appearance Clear (Clear) 12/21/21 09:50 Urine pH 7.5 (4.5-7.5) 12/21/21 09:50 Ur Specific [place] 1.015 (1.000-1.030) 12/21/21 09:50 Urine Protein Trace (Negative) H 12/21/21 09:50 Urine Glucose (UA) Negative (Negative) 12/21/21 09:50 Urine Ketones 1+ (Negative) H 12/21/21 09:50 Urine Blood Negative (Negative) 12/21/21 09:50 Urine Nitrite Negative (Negative) 12/21/21 09:50 Urine Bilirubin Negative (Negative) 12/21/21 09:50 Urine Urobilinogen Negative (Negative) 12/21/21 09:50 Ur Leukocyte Esterase Negative (Negative) 12/21/21 09:50 Urine WBC (Auto) 0 /hpf (0-5) 12/21/21 09:50 Urine RBC (Auto) 0-4 /hpf (0-4) 12/21/21 09:50 U Hyaline Cast (Auto) 1-5 /lpf (0-5) 12/21/21 09:50 U Epithel Cells (Auto) 0-5 /lpf (0-5) 12/21/21 09:50 Urine Bacteria (Auto) Negative (Negative) 12/21/21 09:50 Urine Sodium 115 mmol/L 12/21/21 09:50 Urine Potassium 38.3 mmol/L 12/21/21 09:50 Urine Chloride 106 mmol/L 12/21/21 09:50 SARS-CoV-2, RNA, NAAT POSITIVE (NEGATIVE) A* 12/20/21 07:10 Impressions Chest X-Ray 12/20/21 06:52 XR chest 1V portable CLINICAL HISTORY: Atypical chest pain. Fall. COMPARISON STUDY: Chest radiograph October 17, 2021. Chest CT May 15, 2015. FINDINGS: Lung volumes are mildly diminished. This may account for slight interstitial prominence. Elevation of the right hemidiaphragm has slightly increased. Right basilar opacity represents atelectasis. Cardiomediastinal silhouette is stable. There is no pneumothorax or pleural effusion. No evidence for pulmonary edema. Intracanalicular electrodes are incidentally noted. IMPRESSION: No acute cardiopulmonary findings. ACT 112: Negative or not required by law. Electronically signed by: Benigno Turner M.D. 12/20/2021 8:[address] 12/20/21 06:53 CT OF THE HEAD WITHOUT CONTRAST CLINICAL HISTORY: Fall. COMPARISON STUDY: Head CT October 17, 2021. CT DOSE: 687.98 mGy.cm TECHNIQUE: Helical axial images of the head were obtained without IV contrast. Automated exposure control was utilized for the study. A dose lowering technique was utilized adhering to the principles of ALARA. FINDINGS: No acute intracranial hemorrhage, midline shift or mass effect is present. White matter hypodensities are similar to prior exam and favor small vessel disease. The ventricular system is unremarkable. The basal cisterns are patent. No extra-axial collections are present. There are no findings to suggest acute dural sinus thrombosis or acute territorial infarct. No significant calvarial abnormalities are present. Visualized portions of the sinuses and mastoid air cells are clear. IMPRESSION: 1. No acute intracranial findings. No change in appearance of the brain. 2. No acute calvarial fracture. ACT 112: Negative or not required by law. Electronically signed by: Benigno Turner M.D. 12/20/2021 7:30 AM Hip/Pelvis X-Ray 12/20/21 06:54 XR hip SHAHNAZ 2v w pelvis CLINICAL HISTORY: Fall. COMPARISON STUDY: CT of the abdomen and pelvis October 12, 2021. FINDINGS: Alignment of the bilateral total hip arthroplasties is anatomic. No acute fracture within the pelvis or hips is identified. There is no periprosthetic fracture. Pelvic surgical clips are noted. Stimulator device is partially imaged. Sacroiliac joints and symphysis pubis are intact. IMPRESSION: No acute fracture within the pelvis or hips. Intact bilateral total hip arthroplasties. ACT 112: Negative or not required by law. Electronically signed by: Benigno Turner M.D. 12/20/2021 8:05 AM Ankle X-Ray 12/20/21 11:41 XR ankle LT min 3V routine CLINICAL HISTORY: Ankle swelling, concern for hairline fracture COMPARISON: Left tibia and fibula radiographs November 21, 2019. FINDINGS: Ankle soft tissue swelling is present. There is osteopenia. Mild medial ankle mortise widening is noted. There is lucency with cortical irregularity of the distal left fibula at the level of the ankle mortise. This is new since prior radiographs of November 21, 2019. A lucency within the medial malleolus is likely artifactual. IMPRESSION: 1. Lucency with cortical irregularity of the distal left fibula at the level of the ankle mortise. This favors an age indeterminate minimally displaced fracture. Correlation with traumatic history is recommended. 2. Mild medial ankle mortise widening. Although this could be positional, ankle mortise injury cannot be excluded. 3. Lucency within the medial malleolus. This is likely artifactual although a nondisplaced fracture could appear similar. 4. Ankle soft tissue swelling. 5. Osteopenia. ACT 112: Negative or not required by law. Electronically signed by: Benigno Turner M.D. 12/20/2021 1:35 PM
--- NOTE | 2021-12-21 13:26 | Cardiology Consultation ---
Date of Consultation December 21, 2021 Assessment & Plan (1) Paroxysmal atrial fibrillation: (2) COVID-19: (3) Ambulatory dysfunction: Plan Patient is a 76-year-old male with paroxysmal atrial fibrillation and borderline tachybradycardia syndrome. Recently hospitalized with E. coli bacteremia in September with atrial fibrillation present. Heart rate somewhat difficult to control with pauses induced with the use of digoxin. He underwent synchronized electrical cardioversion. He read presents now after what appears to been a mechanical fall with injury. On presentation he was found to be in atrial fibrillation with mildly elevated average heart rate. Since admission medicat ions have been held at night due to concerns regarding low heart rate on monitor (artifactual) Currently without acute cardiac complaint. Patient unaware of elevated heart rate Will address as follows 1. Paroxysmal atrial fibrillation with elevated ventricular sponsor rate. We will increase metoprolol succinate to 25 mg 3 times daily. Would not increase further. Avoiding digoxin given past medication induced pauses Patient has 2 indications for chronic anticoagulation with past DVT/PE and remains on Xarelto chronically Very limited response to synchronized electrical cardioversion. Avoiding antiarrhythmic therapy at this time and likely opting for chronic rate control given asymptomatic state we will follow telemetry as to response 2. Borderline tachybradycardia syndrome. As above History of Present Illness Reason for Consultation: Atrial fibrillation with rapid ventricular response Attending Physician: Aakash Dumont MD History of Present Illness Patient is a 76-year-old male with ongoing cardiac concerns 1. Paroxysmal atrial fibrillation with borderline tachybradycardia syndrome status post synchronized electrical cardioversion 10/16/2021 occurrence in the setting of E. coli sepsis 2. Hypertension 3. Prior DVT/PE status post IVC filter on chronic anticoagulation 4. Spinal stenosis with gait instability, idiopathic polyneuropathy with multiple falls 5. Acute COVID infection 12/09/2021 Patient presents this admission for evaluation. He notes at least 2 falls over the last months time most recent resulting in ER presentation due to ankle injury. He denies dizziness or lightheadedness notes no syncope or near syncope. Notes left leg generally gives out. Patient not aware of irregular heart rhythm or racing heart rhythms prior to presentation. EKG in ER atrial fibrillation with mildly elevated heart rate. Currently no chest pains or discomfort concern regarding ankle injury and left leg swelling. No fevers or chills low-grade cough but nonproductive. Patient not aware of any acute weight gain though notes left leg is more edematous than recently No bleeding difficulties with patient on chronic anticoagulation Allergies Allergy/AdvReac Type Severity Reaction Status Date / Time adalimumab Allergy Severe GI SYMPTOMS Verified 10/08/21 16:58 [email or web address] Allergy Intermediate NEUROLOGICAL Verified 10/08/21 16:58 SYMPTOMS/STOMACH PAINS methotrexate Allergy Unknown Blood Verified 10/08/21 16:58 platelets drop. naproxen Allergy Unknown dilusional Verified 10/08/21 16:58 Home Medications Medication Instructions Recorded Confirmed Type leuprolide acetate (6 month) 45 mg 1 dose IM UD 01/26/18 12/20/21 History intramuscular syringe kit (Lupron [place]) Saccharomyces boulardii 250 mg 250 mg PO BID #14 caps 10/22/21 12/20/21 Rx capsule abiraterone 250 mg tablet (Zytiga) 1,000 mg PO QAM #120 tabs 10/22/21 12/20/21 Rx acetaminophen 325 mg tablet 650 mg PO Q4H PRN pain #30 tabs 10/22/21 12/20/21 Rx baclofen 10 mg tablet 20 mg PO QID #30 tabs 10/22/21 12/20/21 Rx calcium carbonate 500 mg-vitamin 1 tab PO QAM #30 tabs 10/22/21 12/20/21 Rx D3 10 mcg (400 unit) tablet (Calcium 500 With D) celecoxib 100 mg capsule 100 mg PO BID #14 caps 10/22/21 12/20/21 Rx docusate sodium 50 mg capsule 50 mg PO QAM #30 caps 10/22/21 12/20/21 Rx dorzolamide 22.3 mg-timolol 6.8 1 drp OPB BID #10 mL 10/22/21 12/20/21 Rx mg/mL eye drops gabapentin 100 mg capsule 100 mg PO HS #30 caps 10/22/21 12/20/21 Rx lisinopril 10 mg tablet 10 mg PO QAM #30 tabs 10/22/21 12/20/21 Rx metoprolol succinate 25 mg 12.5 mg PO BID #60 tabs 10/22/21 12/20/21 Rx tablet,extended release 24 hr (Toprol XL) oxycodone 10 mg tablet 10 mg PO .q6 prn PRN pain #14 tabs 10/22/21 12/20/21 Rx prednisone 5 mg tablet 5 mg PO QAM #30 tabs 10/22/21 12/20/21 Rx rivaroxaban 20 mg tablet (Xarelto) 20 mg PO QAM #30 tabs 10/22/21 12/20/21 Rx timolol maleate (PF) 0.5 % eye 1 drp OPB BID #60 ea 10/22/21 12/20/21 Rx drops in a dropperette travoprost 0.004 % eye drops 1 drp OPB HS #5 mL 10/22/21 12/20/21 Rx (Travatan Z) alfuzosin 10 mg tablet,extended 10 mg PO DAILY #90 tabs 12/03/21 12/20/21 Rx release 24 hr (Uroxatral) Patient History Medical History Abdominal aortic aneurysm per 05/25/17 CT: "Focal outpouchings of the juxtarenal and infrarenal abdominal aorta, 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 The infrarenal lesion currently measures 33 mm in maximum diameter from the center line, unchanged in size when compared to the most recent prior examination of 08/11/2016 but is enlarged when compared to more remote examination of 11/13/2014. The juxtarenal lesion appears unchanged when compared to prior examination of 11/13/2014 measuring 26 mm in maximum axial diameter on both examinations." Chronic back pain LEFT LEG Deep vein thrombosis S/P LEG INJURY 2014 Dysuria Glaucoma [place] filter in place 2014 H/O prostate cancer S/P PROSTATECTOMY 2005 History of bladder cancer s/p TURBT 06/2016 History of ITP 2014, tx with prednisone Malignant neoplasm of urinary bladder On anticoagulant therapy Osteoarthritis Overactive bladder Prostate cancer Pulmonary embolism FROM DVT 2014 Sleep apnea CPAP Transient ischemic attack (TIA) HX, COUPLE YEARS AGO, UNCLEAR IF ACTUAL TIA. PT ON XARELTO NOW FOR DVT/PE HX. Surgical History H/O shoulder surgery RIGHT History of bladder surgery TURBT 06/2016 History of laminectomy History of prostatectomy S/P PROSTATE CANCER 2005- s/p radiation and prostatectomy. Recurrent disease found in lymph node 2014. On hormone therapy. History of total hip arthroplasty R/L Hx of cervical spine surgery ANTERIOR Family History Mother Alzheimer disease Father Aortic aneurysm Other Family history non-contributory Social History Smoking Status: Never smoker Tobacco Type: Cigarettes Cigarettes Per Day: 1 PACK OF MINI-CIGARS PER MONTH; Second Hand Exposure: No; Do You Dip or Chew Tobacco: No; Tobacco Cessation Education Requested by Patient: No Hx Alcohol Use: No Hx Substance Use: No Preferred Language: Kitt[place] Communication Ability: Effective Developer Prover Upholstering Required: No Beliefs That Will Affect Care: None marital status: Current Living Situation: Spouse Other Information That Helps Us Care for You: No Feels Safe at Home: Yes Safety Concerns: Feels Safe At This Time Assistive Devices: Walker and Wheelchair Review of Systems 2 Review of Systems: All systems reviewed & are unremarkable except as noted in HPI & below Physical Exam Constitutional: + ill appearing; no acute distress Eyes: PERRL, conjunctivae normal, anicteric sclerae ENMT: external ear and nose normal, oropharynx normal Neck: trachea midline, no thyromegaly Respiratory: Auscultation: + diminished lung sounds (But clear) Cardiovascular: Rate/Rhythm: + tachycardic and + irregularly irregular Vessels: no JVD Extremities: + edema (Left leg with chronic stasis edema) Gastrointestinal (Abdomen): normal bowel sounds, soft, nontender, no hepatosplenomegaly Results & Data ([facility]) Vital Signs (Past 12 Hours) Vital Signs Temp Pulse Resp BP Pulse Ox O2 Del Method 12/21/21 09:15 111 H 12/21/21 08:00 Room Air 12/21/21 08:17 36.7 C 52 L 20 152/86 H 95 Room Air 12/21/21 07:42 36.4 C L 72 20 166/85 H 95 Room Air 12/21/21 03:28 36.6 C 81 18 155/86 H 92 Room Air Laboratory Results Laboratory Results - last 24 hr 12/21/21 12/21/21 12/21/21 08:13 08:13 09:50 WBC 10.53 RBC 4.79 Hgb 12.5 L Hct 38.8 L MCV 81.0 MCH 26.1 MCHC 32.2 RDW Std Deviation 41.1 RDW Coeff of Luis Angel 14.1 Plt Count 246 MPV 9.5 Immature Gran % (Auto) 0.4 Neut % (Auto) 80.1 Lymph % (Auto) 9.4 [place] % (Auto) 8.1 Eos % (Auto) 1.7 Baso % (Auto) 0.3 Neut # (Auto) 8.44 H Lymph # (Auto) 0.99 L [place] # (Auto) 0.85 H Eos # (Auto) 0.18 Baso # (Auto) 0.03 Immature Gran # (Auto) 0.04 H Sodium 141 Potassium 3.6 Chloride 108 H Carbon Dioxide 26 Anion Gap 7 BUN 22 Creatinine 0.90 D Est Cr Clr Drug Dosing Not Reportable Est GFR ( Amer) 94.5 Est GFR (Non-Af Amer) 81.5 BUN/Creatinine Ratio 24.4 H Glucose 108 H Calcium 8.5 Total Bilirubin 0.9 AST 11 L ALT 8 Alkaline Phosphatase 120 H Total Protein 6.3 Albumin 3.5 Globulin 2.8 Albumin/Globulin Ratio 1.3 Urine Color Urine Appearance Urine pH Ur Specific [place] Urine Protein Urine Glucose (UA) Urine Ketones Urine Blood Urine Nitrite Urine Bilirubin Urine Urobilinogen Ur Leukocyte Esterase Urine WBC (Auto) Urine RBC (Auto) U Hyaline Cast (Auto) U Epithel Cells (Auto) Urine Bacteria (Auto) Urine Sodium 115 Urine Potassium 38.3 Urine Chloride 106 12/21/21 09:50 WBC RBC Hgb Hct MCV MCH MCHC RDW Std Deviation RDW Coeff of Luis Angel Plt Count MPV Immature Gran % (Auto) Neut % (Auto) Lymph % (Auto) [place] % (Auto) Eos % (Auto) Baso % (Auto) Neut # (Auto) Lymph # (Auto) [place] # (Auto) Eos # (Auto) Baso # (Auto) Immature Gran # (Auto) Sodium Potassium Chloride Carbon Dioxide Anion Gap BUN Creatinine Est Cr Clr Drug Dosing Est GFR ( Amer) Est GFR (Non-Af Amer) BUN/Creatinine Ratio Glucose Calcium Total Bilirubin AST ALT Alkaline Phosphatase Total Protein Albumin Globulin Albumin/Globulin Ratio Urine Color Yellow Urine Appearance Clear Urine pH 7.5 Ur Specific [place] 1.015 Urine Protein Trace H Urine Glucose (UA) Negative Urine Ketones 1+ H Urine Blood Negative Urine Nitrite Negative Urine Bilirubin Negative Urine Urobilinogen Negative Ur Leukocyte Esterase Negative Urine WBC (Auto) 0 Urine RBC (Auto) 0-4 U Hyaline Cast (Auto) 1-5 U Epithel Cells (Auto) 0-5 Urine Bacteria (Auto) Negative Urine Sodium Urine Potassium Urine Chloride
[2021-12-21] MEDS ORDERED: METOPROLOL SUCC 25MG EXT REL TAB PO ONE (14:44)
[2021-12-21] MEDS ORDERED: POTASSIUM CHLORIDE CRTAB 20 MEQ TABCR PO ONE (15:00)
--- NOTE | 2021-12-21 15:04 | Orthopedic Consultation ---
Date of Consultation December 21, 2021 Assessment & Plan (1) Closed fracture of left distal fibula: Nonweightbearing left lower extremity Elevate for comfort Cam boot Medical management PT/OT Given the patient's multiple medical comorbidities I would recommend conservative treatment at this time in a cam boot and limiting weightbearing. He may follow-up as an outpatient with our foot and ankle service. We will sign off at this time please call if any questions History of Present Illness Reason for Consultation: Left distal fibula fracture Attending Physician: Aakash Dumont MD History of Present Illness 76-year-old male with history of multiple medical comorbidities presenting as ambulatory dysfunction to [facility]. Since he was last discharged from rehab he notes numerous falls. He thinks his last fall that injured his foot was about 3 to 4 weeks ago. He does have a history of a chronic left foot drop. Radiographs were obtained in the emergency department which showed a minimally displaced left distal fibula fracture and orthopedics was consulted. Allergies Allergy/AdvReac Type Severity Reaction Status Date / Time adalimumab Allergy Severe GI SYMPTOMS Verified 10/08/21 16:58 mirabegron Allergy Intermediate NEUROLOGICAL Verified 10/08/21 16:58 SYMPTOMS/STOMACH PAINS methotrexate Allergy Unknown Blood Verified 10/08/21 16:58 platelets drop. naproxen Allergy Unknown dilusional Verified 10/08/21 16:58 Home Medications Medication Instructions Recorded Confirmed Type leuprolide acetate (6 month) 45 mg 1 dose IM UD 01/26/18 12/20/21 History intramuscular syringe kit (Lupron Depot) Saccharomyces boulardii 250 mg 250 mg PO BID #14 caps 10/22/21 12/20/21 Rx capsule abiraterone 250 mg tablet (Zytiga) 1,000 mg PO QAM #120 tabs 10/22/21 12/20/21 Rx acetaminophen 325 mg tablet 650 mg PO Q4H PRN pain #30 tabs 10/22/21 12/20/21 Rx baclofen 10 mg tablet 20 mg PO QID #30 tabs 10/22/21 12/20/21 Rx calcium carbonate 500 mg-vitamin 1 tab PO QAM #30 tabs 10/22/21 12/20/21 Rx D3 10 mcg (400 unit) tablet (Calcium 500 With D) celecoxib 100 mg capsule 100 mg PO BID #14 caps 10/22/21 12/20/21 Rx docusate sodium 50 mg capsule 50 mg PO QAM #30 caps 10/22/21 12/20/21 Rx dorzolamide 22.3 mg-timolol 6.8 1 drp OPB BID #10 mL 10/22/21 12/20/21 Rx mg/mL eye drops gabapentin 100 mg capsule 100 mg PO HS #30 caps 10/22/21 12/20/21 Rx lisinopril 10 mg tablet 10 mg PO QAM #30 tabs 10/22/21 12/20/21 Rx metoprolol succinate 25 mg 12.5 mg PO BID #60 tabs 10/22/21 12/20/21 Rx tablet,extended release 24 hr (Toprol XL) oxycodone 10 mg tablet 10 mg PO .q6 prn PRN pain #14 tabs 10/22/21 12/20/21 Rx prednisone 5 mg tablet 5 mg PO QAM #30 tabs 10/22/21 12/20/21 Rx rivaroxaban 20 mg tablet (Xarelto) 20 mg PO QAM #30 tabs 10/22/21 12/20/21 Rx timolol maleate (PF) 0.5 % eye 1 drp OPB BID #60 ea 10/22/21 12/20/21 Rx drops in a dropperette travoprost 0.004 % eye drops 1 drp OPB HS #5 mL 10/22/21 12/20/21 Rx (Travatan Z) alfuzosin 10 mg tablet,extended 10 mg PO DAILY #90 tabs 12/03/21 12/20/21 Rx release 24 hr (Uroxatral) Patient History Medical History Abdominal aortic aneurysm per 05/25/17 CT: "Focal outpouchings of the juxtarenal and infrarenal abdominal aorta, 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 The infrarenal lesion currently measures 33 mm in maximum diameter from the center line, unchanged in size when compared to the most recent prior examination of 08/11/2016 but is enlarged when compared to more remote examination of 11/13/2014. The juxtarenal lesion appears unchanged when compared to prior examination of 11/13/2014 measuring 26 mm in maximum axial diameter on both examinations." Chronic back pain LEFT LEG Deep vein thrombosis S/P LEG INJURY 2015 Dysuria [facility] filter in place 2014 H/O prostate cancer S/P PROSTATECTOMY 2006 History of bladder cancer s/p TURBT 06/2016 History of ITP 2014, tx with prednisone Malignant neoplasm of urinary bladder On anticoagulant therapy Osteoarthritis Overactive bladder Prostate cancer Pulmonary embolism FROM DVT 2014 Sleep apnea CPAP Transient ischemic attack (TIA) HX, COUPLE YEARS AGO, UNCLEAR IF ACTUAL TIA. PT ON XARELTO NOW FOR DVT/PE HX. Surgical History H/O shoulder surgery RIGHT History of bladder surgery TURBT 06/2016 History of laminectomy History of prostatectomy S/P PROSTATE CANCER 2005- s/p radiation and prostatectomy. Recurrent disease found in lymph node 2014. On hormone therapy. 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 No significant pain with passive ankle range of motion dorsiflexion plantarflexion inversion or eversion. -Sensation grossly intact to light touch s/spn/dpn/t/s -Chronic left foot drop, does fire gastrocsoleus complex Palpable dorsalis pedis and posterior tibial pulses Results & Data ([facility]) Vital Signs (Past 12 Hours) Vital Signs Temp Pulse Resp BP Pulse Ox O2 Del Method 12/21/21 09:15 111 H 12/21/21 08:00 Room Air 12/21/21 08:17 36.7 C 52 L 20 152/86 H 95 Room Air 12/21/21 07:42 36.4 C L 72 20 166/85 H 95 Room Air 12/21/21 03:28 36.6 C 81 18 155/86 H 92 Room Air Diagnostic Findings Mildly displaced left distal fibula fracture
--- NOTE | 2021-12-21 16:11 | Ultrasound Report ---
BILATERAL LOWER EXTREMITY VENOUS DOPPLER CLINICAL HISTORY: Rule out DVT COMPARISON STUDY: Left lower extremity venous Doppler ultrasound October 05, 2018. Bilateral lower ex tremity venous Doppler JUNE 07, 2014. TECHNIQUE: Sonography of the deep venous system of the bilateral lower extremities was performed. Co mpression and augmentation were evaluated. FINDINGS: This exam was compromised given difficulty positioning. The bilateral common femoral, supe rficial femoral and popliteal veins were compressible. Augmentation was normal. Flow was shown within the deep calf vessels. IMPRESSION: Technically difficult exam but no evidence of deep venous thrombus within the bilateral l ower extremities. ACT 112: Negative or not required by law. Electronically signed by: Benigno Turner M.D. 12/21/2021 4:09 PM
--- NOTE | 2021-12-21 16:24 | Ultrasound Report ---
US renal/blad retro comp CLINICAL HISTORY: Hx of Bladder Ca, OMID TECHNIQUE: Multiple sonographic real-time images of the kidneys and bladder were obtained. COMPARISON: Comparison is made to renal ultrasound 03/30/2016 FINDINGS: The right kidney measures 10.4 cm in length, and the left kidney measures 11.7 cm in length. The right kidney is normal in size, contour, cortical thickness, and echogenicity. No hydronephrosis is identified. A cyst is seen in the right kidney measuring 1.9 x 2.2 x 2.3 cm. No perinephric flui d collection is seen. The left kidney is normal in size, contour, cortical thickness and echogenicity. No hydronephrosis i s identified. Multiple cysts are seen measuring up to 3.7 x 3.6 x 3 point No perinephric fluid lorie ection is seen. The bladder is partially distended. No large intraluminal mass is seen. IMPRESSION: No evidence of hydronephrosis. Renal cysts are again seen bilaterally. ACT 112: Negative or not required by law. Electronically signed by: Andrzej Méndez M.D. 12/21/2021 4:23 PM
[2021-12-21] MEDS: METOPROLOL SUCC 25MG EXT REL TAB PO SCH (20:14)
[2021-12-21] MEDS: GABAPENTIN 100 MG CAP PO SCH (20:14)
[2021-12-21] MEDS: TRAVOPROST Z 0.004% OPH SOLN 2.5 ML BTL OPB SCH (22:17)
[2021-12-22] MEDS ORDERED: MELATONIN 3 MG TAB PO PRN (00:44)
[2021-12-22] MEDS ORDERED: MELATONIN 3 MG TAB PO ONE (00:52)
[2021-12-22] MEDS: oxyCODONE HCL IR 5 MG TAB (IMMEDIATE RELEASE) PO PRN (05:13)
[2021-12-22] MEDS: DOCUSATE SODIUM 100 MG CAP PO SCH (08:03)
[2021-12-22] MEDS: BACLOFEN 20 MG TAB PO SCH ×4 (08:03→21:09)
[2021-12-22] MEDS: SACCHAROMYCES BOULARDII 250 MG CAP PO SCH ×2 (08:03→21:09)
[2021-12-22] MEDS: CALCIUM 600MG + VIT D 400 IU TAB PO SCH (08:03)
[2021-12-22] MEDS: predniSONE 5 MG TAB PO SCH (08:03)
[2021-12-22] MEDS: RIVAROXABAN 20 MG TAB PO SCH (08:03)
[2021-12-22] MEDS: METOPROLOL SUCC 25MG EXT REL TAB PO SCH ×3 (08:03→21:10)
[2021-12-22] MEDS: ALFUZOSIN HCL 10 MG TAB PO SCH (08:03)
[2021-12-22] MEDS: DORZOLAMIDE/TIMOLOL 22.3/6.8MG/ML 10 ML BTL OPB SCH ×2 (08:03→21:11)
[2021-12-22 08:43] LABS: Basophils # (auto) 0.03 K/uL (0-0.2); Basophils % (auto) 0.3 %; Eosinophils # (auto) 0.11 K/uL (0-0.50); Eosinophils % (auto) 1.2 %; Hematocrit (blood only) 34.7 % (40.1-51.0); Hemoglobin 11.2 g/dl (14.0-18.0); Immature Granulocytes # (auto) 0.03 K/uL (0.00-0.02); Immature Granulocytes % (auto) 0.3 %; Lymphocytes # (auto) 0.99 K/uL (1.2-3.4); Lymphocytes % (auto) 10.8 %; Mean Corpuscular Hgb Conc 32.3 g/dL (32.0-36.0); Mean Corpuscular Volume 80.5 fL (80.0-100.0); Mean Platelet Volume 9.6 fL (9.4-12.4); Monocytes # (auto) 1.01 K/uL (0.24-0.82); Neutrophils # (auto) 6.98 K/uL (1.4-6.5); Neutrophils % (auto) 76.4 %; Platelet Count 211 K/uL (130-400); RDW Coefficient of Variation 14.3 % (11.5-14.5); RDW Standard Deviation 41.6 fL (36.4-46.3); Red Blood Count 4.31 M/uL (4.63-6.08); White Blood Count 9.15 K/ul (4.8-10.8)
[2021-12-22 09:35] LABS: Alanine Aminotransferase 8 U/L (7-52); Albumin Globulin Ratio 1.1 (0.9-2); Albumin Level 3.2 gm/dl (3.4-5.0); Alkaline Phosphatase 115 U/L (34-104); Anion Gap 5 (3-11); Aspartate Aminotransferase 11 U/L (13-39); BUN Creatinine Ratio 27.1 (10-20); Bilirubin,Total 0.9 mg/dl (0.2-1.0); Blood Urea Nitrogen 23 mg/dl (6-23); Calcium 8.4 mg/dl (8.5-10.1); Carbon Dioxide 25 mmol/L (21-32); Chloride 108 mmol/L (98-107); Est GFR (African American) 96.7 ml/min; Est GFR (Non-African American) 83.5 ml/min; Globulin 2.9 gm/dl (2.5-4.0); Glucose 100 mg/dl (70-99(Fasting)); Sodium 138 mmol/L (136-145); Total Protein 6.1 gm/dl (6.0-8.3)
[2021-12-22] MEDS: ABIRATERONE ACETATE 250 MG PO SCH (09:56)
--- NOTE | 2021-12-22 10:56 | Discharge Summary ---
Date of Service December 22, 2021 Admission HPI Per Admitting Provider History obtained from patient, patient's and records Past medical history of prostate cancer, bladder cancer, history of AAA, HTN, osteoporosis, history of cervical spine surgery, lumbar spinal stenosis status p ost spinal cord stimulator placement, chronic left foot drop, GERD, history of PE status post IVC filter, chronic right arm tremor and history of PMR Last confinement was in September and early October; was treated for E. coli bacteremia and ambulatory dysfunction. Treated with IV ceftriaxone for 14 days and was discharged to subacute rehab ([facility]) Patient returned from [facility] after staying there for 2 weeks. He lives with his who is also his POA in the same house. Patient has been having multiple falls; approximately twice a week since his discharge due to ambulatory dysfunction. He has home health nurse, PT OT coming to his house to continue with his rehabilitation. He was diagnosed with COVID-19 infection along with his on 12/09. He has dry cough since the diagnosis and has been feeling more weak. Last night, patient went to the bathroom and fell down on his knees; was unable to get up by himself. His found him shouting on the bathroom floor; call the police as he was unable to get him up. He denies loss of consciousness. He has bruises all over his body due to multiple falls over the last few weeks. He had a chest x-ray done on 12/18 due to persistent cough; negative for infiltrate. X-ray of his left ankle was done on the same as patient had been complaining of pain; possible hairline fracture. Patient was referred to orthopedic which he has appointment for October 22. Patient denies fever, chills, chest pain, shortness of breath, abdominal pain or urinary symptoms. In the ED, he was afebrile, normotensive and was at 4 L/min of nasal cannula. Creatinine is slightly elevated to 1.35. COVID-19 was positive. Chest x-ray did not show any abnormality. Total CK was normal. CBC shows hemoglobin of 10.87, stable. Patient was admitted to telemetry floor for further management. Admission Exam Per Admitting Provider Constitutional: Lethargic but easily awake; able to answer questions appropriately. Respiratory: Bilateral clear breath sound Cardiovascular: RRR, no murmur, no edema Vessels: no JVD or carotid bruit Chest: normal inspection of chest Abdomen: normal bowel sounds, soft, nontender, no hepatosplenomegaly Musculoskeletal: Left ankle is swollen along with left leg; nontender to palpation. Skin: Multiple bruises present all over his body; especially in elbow and knees. Neurologic: Awake, alert/oriented. Nonfocal Psychiatric: A+Ox3, euthymic affect Lymphatic: no cervical or axillary lymphadenopathy : deferred Principal Diagnosis A. fib with RVR OMID, likely prerenal COVID-19 infection Ambulatory dysfunction with recurrent fall. Distal fibula fracture Discharge Exam Constitutional: Awake, oriented x3 Respiratory: Bilateral clear breath sound Cardiovascular: RRR, no murmur, no edema Vessels: no JVD or carotid bruit Chest: normal inspection of chest Abdomen: normal bowel sounds, soft, nontender, no hepatosplenomegaly Musculoskeletal: Left ankle is swollen along with left leg; history of lymphedema as per patient. Nontender to palpation. Skin: Multiple bruises present all over his body; especially in elbow and knees. Neurologic: Awake, alert/oriented. History of left foot drop. Psychiatric: A+Ox3, euthymic affect Lymphatic: no cervical or axillary lymphadenopathy : deferred Discharge Data Allergies Allergy/AdvReac Type Severity Reaction Status Date / Time adalimumab Allergy Severe GI SYMPTOMS Verified 10/08/21 16:58 mirabegron Allergy Intermediate NEUROLOGICAL Verified 10/08/21 16:58 SYMPTOMS/STOMACH PAINS methotrexate Allergy Unknown Blood Verified 10/08/21 16:58 platelets drop. naproxen Allergy Unknown dilusional Verified 10/08/21 16:58 Consultations 12/20/21 08:27 ED Decision to Admit Stat 12/21/21 07:08 Consult Orthopedic Surgery Routine 12/21/21 07:48 Consult Cardiology Routine Ordered Studies 12/20/21 06:53 CT head/brain wo con Stat 12/21/21 US renal/blad retro comp Routine US venous doppler LE BI Routine Hospital Course (1) Ambulatory dysfunction: (2) OMID (acute kidney injury): (3) Paroxysmal atrial fibrillation: (4) COVID-19: (5) Hypertension: (6) Prostate cancer: Plan This is a 76-year-old male who has a significant past medical history of prostate cancer, bladder cancer, history of AAA, HTN, osteoporosis, history of cervical spine surgery, lumbar spinal stenosis status post spinal cord stimulator placement, chronic left foot drop, GERD, history of PE status post IVC filter, chronic right arm tremor and history of PMR who presents to ED with recurrent fall. Last admission 10/17-10/22 for E. coli bacteremia, ambulatory dysfunction. Ambulatory dysfunction, Recurrent Falls Closed fracture of left distal fibula -Lives with his at home. Multiple falls since his discharge from rehab. -Venous duplexno DVT. -X-ray of the left foot reviewed; left distal fibula fracture. Orthopedic consulted during the hospitalization; recommend cam boot and limiting weightbearing. Outpatient follow-up with foot and ankle service orthopedic. Covid 19 infection Diagnosed on 12/09; has dry cough. Chest x-ray no infiltrate Was placed on oxygen intermittently in ED; on room air after arrival to floor. Received 1 dose of dexamethasone 6 mg; on home dose of prednisone 5 mg once daily. OMID, likely pre-renal, resolved. Creatinine 1.35 on admission, downtrended after gentle hydration. CK within normal limit Renal ultrasound -no hydronephrosis. Atrial fibrillation with RVR Underwent DCCV on 10/16; continue on metoprolol and Xarelto. Echo on 10/11 showed EF of 65 to 70%; no significant valvular heart disease. Cardiology consulted; started on metoprolol 25 mg 3 times a day. Ventricular rate in 90s to 100. Prostate Cancer, hx of bladder cancer, chronic incontinence - currently on lupron and zytiga; follows with urology - on low dose prednisone for h/o prostate Ca and PMR Patient prefered to go home; has caregiver coming to his house. He also has [employer] at home. Patient will have follow-up with PCP, orthopedics and cardiology. Total Time Total Time Spent Total Time Spent (In Minutes): 35 Total Time Includes: Examination of the Patient, Discharge Planning, Medication Reconciliation, Communication With Other Providers and Other Discharge Plan Discharge Items Reason For Visit: FALL Follow-up/Referrals: Clifford Gandhi DO [Primary Care Provider] - Medications and DC Order Prescriptions: No Action alfuzosin [Uroxatral] 10 mg tablet extended release 24 hr 10 mg PO DAILY Qty: 90 3RF Rx Instructions: administer after the same meal each day Lupron Depot (6 Month) 45 mg Syringe Kit 1 dose IM UD Rx Instructions: [id number] acetaminophen 325 mg Tablet 650 mg PO Q4H PRN (Reason: pain) Qty: 30 0RF prednisone 5 mg tablet 5 mg PO QAM Qty: 30 0RF travoprost [Travatan Z] 0.004 % Drops 1 drp OPB HS Qty: 5 0RF docusate sodium 50 mg Capsule 50 mg PO QAM Qty: 30 0RF baclofen 10 mg tablet 20 mg PO QID Qty: 30 0RF lisinopril 10 mg Tablet 10 mg PO QAM Qty: 30 0RF dorzolamide-timolol 22.3-6.8 mg/mL drops 1 drp OPB BID Qty: 10 0RF gabapentin 100 mg capsule 100 mg PO HS Qty: 30 0RF metoprolol succinate [Toprol XL] 25 mg tablet extended release 24 hr 12.5 mg PO BID Qty: 60 0RF timolol maleate (PF) 0.5 % Dropperette 1 drp OPB BID Qty: 60 0RF Saccharomyces boulardii 250 mg capsule 250 mg PO BID Qty: 14 0RF calcium carbonate-vitamin D3 [Calcium 500 With D] 500 mg(1,250mg) -400 unit Tablet 1 tab PO QAM Qty: 30 0RF oxycodone 10 mg tablet 10 mg PO .q6 prn PRN (Reason: pain) Qty: 14 0RF abiraterone [Zytiga] 250 mg Tablet 1,000 mg PO QAM Qty: 120 0RF Xarelto 20 mg Tablet 20 mg PO QAM Qty: 30 0RF celecoxib 100 mg capsule 100 mg PO BID Qty: 14 0RF Admission Data Admit Date/Time: 12/20/21 08:41 Attending Provider: Aakash Dumont Admit Provider: Aakash Dumont Primary Care Provider: Clifford Gandhi Other Providers: Nadiya Graham ; Cesario Nazario ; Artur Pepper
--- NOTE | 2021-12-22 12:49 | Hospitalist Progress Note ---
Date of Service December 22, 2021 Assessment & Plan (1) Ambulatory dysfunction: (2) OMID (acute kidney injury): (3) Paroxysmal atrial fibrillation: (4) COVID-19: (5) Hypertension: (6) Prostate cancer: Plan This is a 76-year-old male who has a significant past medical history of pr ostate cancer, bladder cancer, history of AAA, HTN, osteoporosis, history of cervical spine surgery, lumbar spinal stenosis status post spinal cord stimulator placement, chronic left foot drop, GERD, history of PE status post IVC filter, chronic right arm tremor and history of PMR who presents to ED with recurrent fall. Last admission 10/17-10/22 for E. coli bacteremia, ambulatory dysfunction. Ambulatory dysfunction, Recurrent Falls Closed fracture of left distal fibula -Lives with his at home. Multiple falls since his discharge from rehab. -Venous duplexno DVT. -X-ray of the left foot reviewed; left distal fibula fracture. Orthopedic consulted during the hospitalization; recommend cam boot and limiting weightbearing. Outpatient follow-up with foot and ankle service orthopedic. Covid 19 infection Diagnosed on 12/09; has dry cough. Chest x-ray no infiltrate Was placed on oxygen intermittently in ED; on room air after arrival to floor. Received 1 dose of dexamethasone 6 mg; on home dose of prednisone 5 mg once daily. OMID, likely pre-renal, resolved. Creatinine 1.35 on admission, downtrended after gentle hydration. CK within normal limit Renal ultrasound -no hydronephrosis. Atrial fibrillation with RVR Underwent DCCV on 10/16; continue on metoprolol and Xarelto. Echo on 10/11 showed EF of 65 to 70%; no significant valvular heart disease. Cardiology consulted; started on metoprolol 25 mg 3 times a day. Ventricular rate in 90s to 100. Prostate Cancer, hx of bladder cancer, chronic incontinence - currently on lupron and zytiga; follows with urology - on low dose prednisone for h/o prostate Ca and PMR DVT prophylaxis Xarelto DNR/DNI; DispoPT OT recommend rehab; patient and were initially resistant but agreeable now. CM on board Admission and Anticipated Discharge Date Admission Date: December 20, 2021 Subjective Comfortable; not in distress. Telemetry shows ventricular rate improved to 90s to 100. Review of Systems Review of Systems: All systems reviewed & are unremarkable except as noted in Subjective Physical Exam Physical Exam: Constitutional: Awake, oriented x3 Respiratory: Bilateral clear breath sound Cardiovascular: RRR, no murmur, no edema Vessels: no JVD or carotid bruit Chest: normal inspection of chest Abdomen: normal bowel sounds, soft, nontender, no hepatosplenomegaly Musculoskeletal: Left ankle is swollen along with left leg; history of lymphedema as per patient. Nontender to palpation. Skin: Multiple bruises present all over his body; especially in elbow and knees. Neurologic: Awake, alert/oriented. History of left foot drop. Psychiatric: A+Ox3, euthymic affect Lymphatic: no cervical or axillary lymphadenopathy : deferred Results & Data Results & Data ([facility]) Vital Signs (Past 12 Hours) Vital Signs Temp Pulse Pulse Resp BP Pulse Ox O2 Del Method 12/22/21 07:30 109 H 12/22/21 07:30 Room Air 12/22/21 08:00 36.5 C 92 H 18 152/95 H 95 Room Air Laboratory Results Laboratory Results WBC 9.15 K/ul (4.8-10.8) 12/22/21 07:45 RBC 4.31 M/uL (4.63-6.08) L 12/22/21 07:45 Hgb 11.2 g/dl (14.0-18.0) L 12/22/21 07:45 Hct 34.7 % (40.1-51.0) L 12/22/21 07:45 MCV 80.5 fL (80.0-100.0) 12/22/21 07:45 MCH 26.0 pg (25.0-34.0) 12/22/21 07:45 MCHC 32.3 g/dL (32.0-36.0) 12/22/21 07:45 RDW Std Deviation 41.6 fL (36.4-46.3) 12/22/21 07:45 RDW Coeff of Luis Angel 14.3 % (11.5-14.5) 12/22/21 07:45 Plt Count 211 K/uL (130-400) 12/22/21 07:45 MPV 9.6 fL (9.4-12.4) 12/22/21 07:45 Immature Gran % (Auto) 0.3 % 12/22/21 07:45 Neut % (Auto) 76.4 % 12/22/21 07:45 Lymph % (Auto) 10.8 % 12/22/21 07:45 Worth % (Auto) 11.0 % 12/22/21 07:45 Eos % (Auto) 1.2 % 12/22/21 07:45 Baso % (Auto) 0.3 % 12/22/21 07:45 Neut # (Auto) 6.98 K/uL (1.4-6.5) H 12/22/21 07:45 Lymph # (Auto) 0.99 K/uL (1.2-3.4) L 12/22/21 07:45 Worth # (Auto) 1.01 K/uL (0.24-0.82) H 12/22/21 07:45 Eos # (Auto) 0.11 K/uL (0-0.50) 12/22/21 07:45 Baso # (Auto) 0.03 K/uL (0-0.2) 12/22/21 07:45 Immature Gran # (Auto) 0.03 K/uL (0.00-0.02) H 12/22/21 07:45 PT 13.1 Seconds (9.0-12.0) H 12/20/21 07:29 INR 1.2 (0.9-1.1) H 12/20/21 07:29 APTT 29.6 Seconds (21.0-31.0) 12/20/21 07:29 PTT Ratio 1.1 12/20/21 07:29 Sodium 138 mmol/L (136-145) 12/22/21 07:45 Potassium 4.0 mmol/L (3.5-5.1) 12/22/21 07:45 Chloride 108 mmol/L (98-107) H 12/22/21 07:45 Carbon Dioxide 25 mmol/L (21-32) 12/22/21 07:45 Anion Gap 5 (3-11) 12/22/21 07:45 BUN 23 mg/dl (6-23) 12/22/21 07:45 Creatinine 0.85 mg/dl (0.6-1.4) 12/22/21 07:45 Est Cr Clr Drug Dosing Not Reportable 12/22/21 07:45 Est GFR ( Amer) 96.7 ml/min 12/22/21 07:45 Est GFR (Non-Af Amer) 83.5 ml/min 12/22/21 07:45 BUN/Creatinine Ratio 27.1 (10-20) H 12/22/21 07:45 Glucose 100 mg/dl (70-99(Fasting)) H 12/22/21 07:45 Calcium 8.4 mg/dl (8.5-10.1) L 12/22/21 07:45 Total Bilirubin 0.9 mg/dl (0.2-1.0) 12/22/21 07:45 AST 11 U/L (13-39) L 12/22/21 07:45 ALT 8 U/L (7-52) 12/22/21 07:45 Alkaline Phosphatase 115 U/L (34-104) H 12/22/21 07:45 Total Creatine Kinase 84 U/L (30-223) 12/20/21 10:50 Troponin I High Sens 13.6 pg/ml (0-20) D 12/20/21 07:00 Total Protein 6.1 gm/dl (6.0-8.3) 12/22/21 07:45 Albumin 3.2 gm/dl (3.4-5.0) L 12/22/21 07:45 Globulin 2.9 gm/dl (2.5-4.0) 12/22/21 07:45 Albumin/Globulin Ratio 1.1 (0.9-2) 12/22/21 07:45 Urine Color Yellow 12/21/21 09:50 Urine Appearance Clear (Clear) 12/21/21 09:50 Urine pH 7.5 (4.5-7.5) 12/21/21 09:50 Ur Specific Elon 1.015 (1.000-1.030) 12/21/21 09:50 Urine Protein Trace (Negative) H 12/21/21 09:50 Urine Glucose (UA) Negative (Negative) 12/21/21 09:50 Urine Ketones 1+ (Negative) H 12/21/21 09:50 Urine Blood Negative (Negative) 12/21/21 09:50 Urine Nitrite Negative (Negative) 12/21/21 09:50 Urine Bilirubin Negative (Negative) 12/21/21 09:50 Urine Urobilinogen Negative (Negative) 12/21/21 09:50 Ur Leukocyte Esterase Negative (Negative) 12/21/21 09:50 Urine WBC (Auto) 0 /hpf (0-5) 12/21/21 09:50 Urine RBC (Auto) 0-4 /hpf (0-4) 12/21/21 09:50 U Hyaline Cast (Auto) 1-5 /lpf (0-5) 12/21/21 09:50 U Epithel Cells (Auto) 0-5 /lpf (0-5) 12/21/21 09:50 Urine Bacteria (Auto) Negative (Negative) 12/21/21 09:50 Urine Sodium 115 mmol/L 12/21/21 09:50 Urine Potassium 38.3 mmol/L 12/21/21 09:50 Urine Chloride 106 mmol/L 12/21/21 09:50 SARS-CoV-2, RNA, NAAT POSITIVE (NEGATIVE) A* 12/20/21 07:10 Impressions Chest X-Ray 12/20/21 06:52 XR chest 1V portable CLINICAL HISTORY: Atypical chest pain. Fall. COMPARISON STUDY: Chest radiograph October 17, 2021. Chest CT May 15, 2015. FINDINGS: Lung volumes are mildly diminished. This may account for slight interstitial prominence. Elevation of the right hemidiaphragm has slightly increased. Right basilar opacity represents atelectasis. Cardiomediastinal silhouette is stable. There is no pneumothorax or pleural effusion. No evidence for pulmonary edema. Intracanalicular electrodes are incidentally noted. IMPRESSION: No acute cardiopulmonary findings. ACT 112: Negative or not required by law. Electronically signed by: Benigno Turner M.D. 12/20/2021 8:[address] 12/20/21 06:53 CT OF THE HEAD WITHOUT CONTRAST CLINICAL HISTORY: Fall. COMPARISON STUDY: Head CT October 17, 2021. CT DOSE: 687.98 mGy.cm TECHNIQUE: Helical axial images of the head were obtained without IV contrast. Automated exposure control was utilized for the study. A dose lowering technique was utilized adhering to the principles of ALARA. FINDINGS: No acute intracranial hemorrhage, midline shift or mass effect is present. White matter hypodensities are similar to prior exam and favor small vessel disease. The ventricular system is unremarkable. The basal cisterns are patent. No extra-axial collections are present. There are no findings to suggest acute dural sinus thrombosis or acute territorial infarct. No significant calvarial abnormalities are present. Visualized portions of the sinuses and mastoid air cells are clear. IMPRESSION: 1. No acute intracranial findings. No change in appearance of the brain. 2. No acute calvarial fracture. ACT 112: Negative or not required by law. Electronically signed by: Benigno Turner M.D. 12/20/2021 7:30 AM Hip/Pelvis X-Ray 12/20/21 06:54 XR hip SHAHNAZ 2v w pelvis CLINICAL HISTORY: Fall. COMPARISON STUDY: CT of the abdomen and pelvis October 12, 2021. FINDINGS: Alignment of the bilateral total hip arthroplasties is anatomic. No acute fracture within the pelvis or hips is identified. There is no periprosthetic fracture. Pelvic surgical clips are noted. Stimulator device is partially imaged. Sacroiliac joints and symphysis pubis are intact. IMPRESSION: No acute fracture within the pelvis or hips. Intact bilateral total hip arthroplasties. ACT 112: Negative or not required by law. Electronically signed by: Benigno Turner M.D. 12/20/2021 8:05 AM Ankle X-Ray 12/20/21 11:41 XR ankle LT min 3V routine CLINICAL HISTORY: Ankle swelling, concern for hairline fracture COMPARISON: Left tibia and fibula radiographs November 21, 2019. FINDINGS: Ankle soft tissue swelling is present. There is osteopenia. Mild medial ankle mortise widening is noted. There is lucency with cortical irregularity of the distal left fibula at the level of the ankle mortise. This is new since prior radiographs of November 21, 2019. A lucency within the medial malleolus is likely artifactual. IMPRESSION: 1. Lucency with cortical irregularity of the distal left fibula at the level of the ankle mortise. This favors an age indeterminate minimally displaced fracture. Correlation with traumatic history is recommended. 2. Mild medial ankle mortise widening. Although this could be positional, ankle mortise injury cannot be excluded. 3. Lucency within the medial malleolus. This is likely artifactual although a nondisplaced fracture could appear similar. 4. Ankle soft tissue swelling. 5. Osteopenia. ACT 112: Negative or not required by law. Electronically signed by: Benigno Turner M.D. 12/20/2021 1:35 PM Renal Ultrasound 12/21/21 00:00 US renal/blad retro comp CLINICAL HISTORY: Hx of Bladder Ca, OMID TECHNIQUE: Multiple sonographic real-time images of the kidneys and bladder were obtained. COMPARISON: Comparison is made to renal ultrasound 03/30/2016 FINDINGS: The right kidney measures 10.4 cm in length, and the left kidney measures 11.7 cm in length. The right kidney is normal in size, contour, cortical thickness, and echogenicity. No hydronephrosis is identified. A cyst is seen in the right kidney measuring 1.9 x 2.2 x 2.3 cm. No perinephric fluid collection is seen. The left kidney is normal in size, contour, cortical thickness and echogenicity. No hydronephrosis is identified. Multiple cysts are seen measuring up to 3.7 x 3.6 x 3 point No perinephric fluid collection is seen. The bladder is partially distended. No large intraluminal mass is seen. IMPRESSION: No evidence of hydronephrosis. Renal cysts are again seen bilaterally. ACT 112: Negative or not required by law. Electronically signed by: Andrzej Méndez M.D. 12/21/2021 4:23 PM Venous Doppler Study 12/21/21 00:00 BILATERAL LOWER EXTREMITY VENOUS DOPPLER CLINICAL HISTORY: Rule out DVT COMPARISON STUDY: Left lower extremity venous Doppler ultrasound October 05, 2018. Bilateral lower extremity venous Doppler JUNE 07, 2014. TECHNIQUE: Sonography of the deep venous system of the bilateral lower extremities was performed. Compression and augmentation were evaluated. FINDINGS: This exam was compromised given difficulty positioning. The bilateral common femoral, superficial femoral and popliteal veins were compressible. Augmentation was normal. Flow was shown within the deep calf vessels. IMPRESSION: Technically difficult exam but no evidence of deep venous thrombus within the bilateral lower extremities. ACT 112: Negative or not required by law. Electronically signed by: Benigno Turner M.D. 12/21/2021 4:09 PM
[2021-12-22] MEDS: GABAPENTIN 100 MG CAP PO SCH (21:09)
[2021-12-22] MEDS: TRAVOPROST Z 0.004% OPH SOLN 2.5 ML BTL OPB SCH (21:10)
[2021-12-23] MEDS: METOPROLOL SUCC 25MG EXT REL TAB PO SCH (07:46)
[2021-12-23] MEDS: BACLOFEN 20 MG TAB PO SCH ×2 (07:46→12:43)
[2021-12-23] MEDS: RIVAROXABAN 20 MG TAB PO SCH (07:46)
[2021-12-23] MEDS: ALFUZOSIN HCL 10 MG TAB PO SCH (07:46)
[2021-12-23] MEDS: CALCIUM 600MG + VIT D 400 IU TAB PO SCH (07:46)
[2021-12-23] MEDS: DORZOLAMIDE/TIMOLOL 22.3/6.8MG/ML 10 ML BTL OPB SCH (07:46)
[2021-12-23] MEDS: predniSONE 5 MG TAB PO SCH (07:46)
[2021-12-23] MEDS: SACCHAROMYCES BOULARDII 250 MG CAP PO SCH (07:46)
[2021-12-23] MEDS: DOCUSATE SODIUM 100 MG CAP PO SCH (07:47)
[2021-12-23 08:05] LABS: Basophils # (auto) 0.02 K/uL (0-0.2); Basophils % (auto) 0.3 %; Eosinophils # (auto) 0.15 K/uL (0-0.50); Eosinophils % (auto) 2.4 %; Hematocrit (blood only) 33.1 % (40.1-51.0); Hemoglobin 10.7 g/dl (14.0-18.0); Immature Granulocytes # (auto) 0.03 K/uL (0.00-0.02); Immature Granulocytes % (auto) 0.5 %; Lymphocytes # (auto) 0.88 K/uL (1.2-3.4); Lymphocytes % (auto) 13.9 %; Mean Corpuscular Hemoglobin 26.2 pg (25.0-34.0); Mean Corpuscular Hgb Conc 32.3 g/dL (32.0-36.0); Mean Corpuscular Volume 81.1 fL (80.0-100.0); Mean Platelet Volume 9.9 fL (9.4-12.4); Monocytes # (auto) 0.74 K/uL (0.24-0.82); Monocytes % (auto) 11.7 %; Neutrophils # (auto) 4.52 K/uL (1.4-6.5); Neutrophils % (auto) 71.2 %; Platelet Count 183 K/uL (130-400); RDW Coefficient of Variation 14.4 % (11.5-14.5); RDW Standard Deviation 42.2 fL (36.4-46.3); Red Blood Count 4.08 M/uL (4.63-6.08); White Blood Count 6.34 K/ul (4.8-10.8)
[2021-12-23] MEDS: oxyCODONE HCL IR 5 MG TAB (IMMEDIATE RELEASE) PO PRN (08:21)
[2021-12-23] MEDS: ABIRATERONE ACETATE 250 MG PO SCH (08:35)
[2021-12-23 08:46] LABS: Alanine Aminotransferase 7 U/L (7-52); Albumin Globulin Ratio 1.2 (0.9-2); Albumin Level 3.1 gm/dl (3.4-5.0); Alkaline Phosphatase 106 U/L (34-104); Anion Gap 5 (3-11); Aspartate Aminotransferase 10 U/L (13-39); BUN Creatinine Ratio 26.3 (10-20); Bilirubin,Total 0.8 mg/dl (0.2-1.0); Blood Urea Nitrogen 21 mg/dl (6-23); Calcium 8.3 mg/dl (8.5-10.1); Carbon Dioxide 26 mmol/L (21-32); Chloride 107 mmol/L (98-107); Est GFR (African American) 99.2 ml/min; Est GFR (Non-African American) 85.6 ml/min; Globulin 2.6 gm/dl (2.5-4.0); Glucose 92 mg/dl (70-99(Fasting)); Potassium 3.8 mmol/L (3.5-5.1); Sodium 138 mmol/L (136-145); Total Protein 5.7 gm/dl (6.0-8.3)
[2021-12-23] MEDS ORDERED: POTASSIUM CHLORIDE CRTAB 20 MEQ TABCR PO ONE (09:26)
--- NOTE | 2021-12-23 13:08 | Hospitalist Progress Note ---
Date of Service December 23, 2021 Assessment & Plan (1) Ambulatory dysfunction: (2) OMID (acute kidney injury): (3) Paroxysmal atrial fibrillation: (4) COVID-19: (5) Hypertension: (6) Prostate cancer: Plan Patient is a 76 yr male who has a significant past medical history of prostate cancer, bladder cancer, history of AAA, HTN, osteoporosis, history of cervical spine surgery, lumbar spinal stenosis status post spinal cord stimulator placement, chronic left foot drop, GERD, history of PE status post IVC filter, chronic right arm tremor and history of PMR who presents to ED with recurrent fall. Ambulatory dysfunction, Recurrent Falls Closed fracture of left distal fibula --Ankle X ray:Lucency with cortical irregularity of the distal left fibula at the level of the ankle mortise. This favors an age indeterminate minimally displaced fracture. Correlation with traumatic history is recommended. Mild medial ankle mortise widening. Although this could be positional, ankle mortise injury cannot be excluded. Lucency within the medial malleolus. This is likely artifactual although a nondisplaced fracture could appear similar. Ankle soft tissue swelling. Osteopenia. --Venous Doppler:Technically difficult exam but no evidence of deep venous thrombus within the bilateral lower extremities. Appreciate orthopedics input Nonweightbearing left lower extremity Elevate LE for comfort Use Cam boot Advised to follow-up with orthopedics upon discharge Continue PT/OT Covid 19 infection Chest x-ray: No acute cardiopulmonary findings. Saturating well on room air On chronic prednisone Symptomatic management OMID likely pre-renal, resolved. Renal ultrasound:No evidence of hydronephrosis. Renal cysts are again seen bilaterally. Cr 1.35>0.8 Monitor renal function Atrial fibrillation with RVR Underwent DCCV on 10/16; continue on metoprolol and Xarelto. Echo on 10/11 showed EF of 65 to 70%; no significant valvular heart disease. 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 and patient's family Plan to be discharged to rehab facility today Review of Systems Review of Systems: All systems reviewed & are unremarkable except as noted in Subjective Physical Exam Physical Exam: Physical Exam: Vitals signs as noted above General Appearance:Moderately built and nourished, no apparent distress Head: normocephalic, Atraumatic Eyes: normal inspection, EOMI Neck: supple, Trachea midline Respiratory/Chest: Decreased breath sounds, CTA, No accessory muscle use Cardiovascular: S1, S2, No murmur Abdomen/GI:Soft, Non tender, Bowel sounds present Extremities/Musculoskeletal:normal inspection, Chronic Left LE swelling, Left foot drop Neurologic/Psych:AAOX3, grossly no focal neurological deficits Skin: normal color, warm Results & Data Results & Data ([facility]) Vital Signs (Past 12 Hours) Vital Signs Temp Pulse Pulse Resp BP Pulse Ox O2 Del Method 12/23/21 11:44 36.8 C 91 H 18 99/60 L 94 Room Air 12/23/21 07:45 110 H 12/23/21 07:45 Room Air 12/23/21 07:43 36.8 C 89 16 147/83 H 95 Room Air 12/23/21 03:39 36.4 C L 93 H 16 136/84 95 Room Air Laboratory Results Short CBC 12/23/21 Range/Units 07:44 WBC 6.34 (4.8-10.8) K/ul Hgb 10.7 L (14.0-18.0) g/dl Hct 33.1 L (40.1-51.0) % Plt Count 183 (130-400) K/uL BMP 12/23/21 07:44 Sodium 138 Potassium 3.8 Chloride 107 Carbon Dioxide 26 BUN 21 Creatinine 0.80 Glucose 92 Calcium 8.3 L Liver Function 12/23/21 Range/Units 07:44 Total Bilirubin 0.8 (0.2-1.0) mg/dl AST 10 L (13-39) U/L ALT 7 (7-52) U/L Alkaline Phosphatase 106 H (34-104) U/L Albumin 3.1 L (3.4-5.0) gm/dl
--- NOTE | 2021-12-23 14:10 | Discharge Summary ---
Date of Service December 23, 2021 Admission HPI Per Admitting Provider Chief Complaint: Mechanical fall Recent COVID-19 infection Primary Care Provider: Clifford Gandhi DO History obtained from patient, patient's and records Past medical history of prostate cancer, bladder cancer, history of AAA, HTN, osteoporosis, history of cervical spine surgery, lumbar spinal stenosis status post spinal cord stimulator placement, chronic left foot drop, GERD, history of PE status post IVC filter, chronic right arm tremor and history of PMR Last confinement was in September and early October; was treated for E. coli bacteremia and ambulatory dysfunction. Treated with IV ceftriaxone for 14 days and was discharged to subacute rehab ([facility]) Patient returned from [facility] after staying there for 2 weeks. He lives with his who is also his POA in the same house. Patient has been having multiple falls; approximately twice a week since his discharge due to ambulatory dysfunction. He has home health nurse, PT OT coming to his house to continue with his rehabilitation. He was diagnosed with COVID-19 infection along with his on 12/09. He has dry cough since the diagnosis and has been feeling more weak. Last night, patient went to the bathroom and fell down on his knees; was unable to get up by himself. His found him shouting on the bathroom floor; call the police as he was unable to get him up. He denies loss of consciousness. He has bruises all over his body due to multiple falls over the last few weeks. He had a chest x-ray done on 12/18 due to persistent cough; negative for infiltrate. X-ray of his left ankle was done on the same as patient had been complaining of pain; possible hairline fracture. Patient was referred to orthopedic which he has appointment for October 22. Patient denies fever, chills, chest pain, shortness of breath, abdominal pain or urinary symptoms. In the ED, he was afebrile, normotensive and was at 4 L/min of nasal cannula. Creatinine is slightly elevated to 1.35. COVID-19 was positive. Chest x-ray did not show any abnormality. Total CK was normal. CBC shows hemoglobin of 10.87, stable. Patient was admitted to telemetry floor for further management. Admission Exam Per Admitting Provider Physical Exam Physical Exam: Constitutional: Lethargic but easily awake; able to answer questions appropriately. Respiratory: Bilateral clear breath sound Cardiovascular: RRR, no murmur, no edema Vessels: no JVD or carotid bruit Chest: normal inspection of chest Abdomen: normal bowel sounds, soft, nontender, no hepatosplenomegaly Musculoskeletal: Left ankle is swollen along with left leg; nontender to palpation. Skin: Multiple bruises present all over his body; especially in elbow and knees. Neurologic: Awake, alert/oriented. Nonfocal Psychiatric: A+Ox3, euthymic affect Lymphatic: no cervical or axillary lymphadenopathy : deferred Principal Diagnosis Ambulatory dysfunction, Recurrent Falls Closed fracture of left distal fibula Covid 19 infection Acute kidney injury Atrial fibrillation with RVR Discharge Data Allergies Allergy/AdvReac Type Severity Reaction Status Date / Time adalimumab Allergy Severe GI SYMPTOMS Verified 10/08/21 16:58 mirabegron Allergy Intermediate NEUROLOGICAL Verified 10/08/21 16:58 SYMPTOMS/STOMACH PAINS methotrexate Allergy Unknown Blood Verified 10/08/21 16:58 platelets drop. naproxen Allergy Unknown dilusional Verified 10/08/21 16:58 Consultations 12/20/21 08:27 ED Decision to Admit Stat 12/21/21 07:08 Consult Orthopedic Surgery Routine 12/21/21 07:48 Consult Cardiology Routine Procedures Performed Laboratory Results WBC 6.34 K/ul (4.8-10.8) 12/23/21 07:44 RBC 4.08 M/uL (4.63-6.08) L 12/23/21 07:44 Hgb 10.7 g/dl (14.0-18.0) L 12/23/21 07:44 Hct 33.1 % (40.1-51.0) L 12/23/21 07:44 MCV 81.1 fL (80.0-100.0) 12/23/21 07:44 MCH 26.2 pg (25.0-34.0) 12/23/21 07:44 MCHC 32.3 g/dL (32.0-36.0) 12/23/21 07:44 RDW Std Deviation 42.2 fL (36.4-46.3) 12/23/21 07:44 RDW Coeff of Luis Angel 14.4 % (11.5-14.5) 12/23/21 07:44 Plt Count 183 K/uL (130-400) 12/23/21 07:44 MPV 9.9 fL (9.4-12.4) 12/23/21 07:44 Immature Gran % (Auto) 0.5 % 12/23/21 07:44 Neut % (Auto) 71.2 % 12/23/21 07:44 Lymph % (Auto) 13.9 % 12/23/21 07:44 [place] % (Auto) 11.7 % 12/23/21 07:44 Eos % (Auto) 2.4 % 12/23/21 07:44 Baso % (Auto) 0.3 % 12/23/21 07:44 Neut # (Auto) 4.52 K/uL (1.4-6.5) 12/23/21 07:44 Lymph # (Auto) 0.88 K/uL (1.2-3.4) L 12/23/21 07:44 [place] # (Auto) 0.74 K/uL (0.24-0.82) 12/23/21 07:44 Eos # (Auto) 0.15 K/uL (0-0.50) 12/23/21 07:44 Baso # (Auto) 0.02 K/uL (0-0.2) 12/23/21 07:44 Immature Gran # (Auto) 0.03 K/uL (0.00-0.02) H 12/23/21 07:44 PT 13.1 Seconds (9.0-12.0) H 12/20/21 07:29 INR 1.2 (0.9-1.1) H 12/20/21 07:29 APTT 29.6 Seconds (21.0-31.0) 12/20/21 07:29 PTT Ratio 1.1 12/20/21 07:29 Sodium 138 mmol/L (136-145) 12/23/21 07:44 Potassium 3.8 mmol/L (3.5-5.1) 12/23/21 07:44 Chloride 107 mmol/L (98-107) 12/23/21 07:44 Carbon Dioxide 26 mmol/L (21-32) 12/23/21 07:44 Anion Gap 5 (3-11) 12/23/21 07:44 BUN 21 mg/dl (6-23) 12/23/21 07:44 Creatinine 0.80 mg/dl (0.6-1.4) 12/23/21 07:44 Est Cr Clr Drug Dosing Not Reportable 12/23/21 07:44 Est GFR ( Amer) 99.2 ml/min 12/23/21 07:44 Est GFR (Non-Af Amer) 85.6 ml/min 12/23/21 07:44 BUN/Creatinine Ratio 26.3 (10-20) H 12/23/21 07:44 Glucose 92 mg/dl (70-99(Fasting)) 12/23/21 07:44 Calcium 8.3 mg/dl (8.5-10.1) L 12/23/21 07:44 Total Bilirubin 0.8 mg/dl (0.2-1.0) 12/23/21 07:44 AST 10 U/L (13-39) L 12/23/21 07:44 ALT 7 U/L (7-52) 12/23/21 07:44 Alkaline Phosphatase 106 U/L (34-104) H 12/23/21 07:44 Total Creatine Kinase 84 U/L (30-223) 12/20/21 10:50 Troponin I High Sens 13.6 pg/ml (0-20) D 12/20/21 07:00 Total Protein 5.7 gm/dl (6.0-8.3) L 12/23/21 07:44 Albumin 3.1 gm/dl (3.4-5.0) L 12/23/21 07:44 Globulin 2.6 gm/dl (2.5-4.0) 12/23/21 07:44 Albumin/Globulin Ratio 1.2 (0.9-2) 12/23/21 07:44 Urine Color Yellow 12/21/21 09:50 Urine Appearance Clear (Clear) 12/21/21 09:50 Urine pH 7.5 (4.5-7.5) 12/21/21 09:50 Ur Specific [place] 1.015 (1.000-1.030) 12/21/21 09:50 Urine Protein Trace (Negative) H 12/21/21 09:50 Urine Glucose (UA) Negative (Negative) 12/21/21 09:50 Urine Ketones 1+ (Negative) H 12/21/21 09:50 Urine Blood Negative (Negative) 12/21/21 09:50 Urine Nitrite Negative (Negative) 12/21/21 09:50 Urine Bilirubin Negative (Negative) 12/21/21 09:50 Urine Urobilinogen Negative (Negative) 12/21/21 09:50 Ur Leukocyte Esterase Negative (Negative) 12/21/21 09:50 Urine WBC (Auto) 0 /hpf (0-5) 12/21/21 09:50 Urine RBC (Auto) 0-4 /hpf (0-4) 12/21/21 09:50 U Hyaline Cast (Auto) 1-5 /lpf (0-5) 12/21/21 09:50 U Epithel Cells (Auto) 0-5 /lpf (0-5) 12/21/21 09:50 Urine Bacteria (Auto) Negative (Negative) 12/21/21 09:50 Urine Sodium 115 mmol/L 12/21/21 09:50 Urine Potassium 38.3 mmol/L 12/21/21 09:50 Urine Chloride 106 mmol/L 12/21/21 09:50 SARS-CoV-2, RNA, NAAT POSITIVE (NEGATIVE) A* 12/20/21 07:10 Impressions Chest X-Ray 12/20/21 06:52 XR chest 1V portable CLINICAL HISTORY: Atypical chest pain. Fall. COMPARISON STUDY: Chest radiograph October 17, 2021. Chest CT May 15, 2015. FINDINGS: Lung volumes are mildly diminished. This may account for slight interstitial prominence. Elevation of the right hemidiaphragm has slightly increased. Right basilar opacity represents atelectasis. Cardiomediastinal silhouette is stable. There is no pneumothorax or pleural effusion. No evidence for pulmonary edema. Intracanalicular electrodes are incidentally noted. IMPRESSION: No acute cardiopulmonary findings. ACT 112: Negative or not required by law. Electronically signed by: Benigno Turner M.D. 12/20/2021 8:[address] 12/20/21 06:53 CT OF THE HEAD WITHOUT CONTRAST CLINICAL HISTORY: Fall. COMPARISON STUDY: Head CT October 17, 2021. CT DOSE: 687.98 mGy.cm TECHNIQUE: Helical axial images of the head were obtained without IV contrast. Automated exposure control was utilized for the study. A dose lowering technique was utilized adhering to the principles of ALARA. FINDINGS: No acute intracranial hemorrhage, midline shift or mass effect is present. White matter hypodensities are similar to prior exam and favor small vessel disease. The ventricular system is unremarkable. The basal cisterns are patent. No extra-axial collections are present. There are no findings to suggest acute dural sinus thrombosis or acute territorial infarct. No significant calvarial abnormalities are present. Visualized portions of the sinuses and mastoid air cells are clear. IMPRESSION: 1. No acute intracranial findings. No change in appearance of the brain. 2. No acute calvarial fracture. ACT 112: Negative or not required by law. Electronically signed by: Benigno Turner M.D. 12/20/2021 7:30 AM Hip/Pelvis X-Ray 12/20/21 06:54 XR hip SHAHNAZ 2v w pelvis CLINICAL HISTORY: Fall. COMPARISON STUDY: CT of the abdomen and pelvis October 12, 2021. FINDINGS: Alignment of the bilateral total hip arthroplasties is anatomic. No acute fracture within the pelvis or hips is identified. There is no periprosthetic fracture. Pelvic surgical clips are noted. Stimulator device is partially imaged. Sacroiliac joints and symphysis pubis are intact. IMPRESSION: No acute fracture within the pelvis or hips. Intact bilateral total hip arthroplasties. ACT 112: Negative or not required by law. Electronically signed by: Benigno Turner M.D. 12/20/2021 8:05 AM Ankle X-Ray 12/20/21 11:41 XR ankle LT min 3V routine CLINICAL HISTORY: Ankle swelling, concern for hairline fracture COMPARISON: Left tibia and fibula radiographs November 21, 2019. FINDINGS: Ankle soft tissue swelling is present. There is osteopenia. Mild medial ankle mortise widening is noted. There is lucency with cortical irregularity of the distal left fibula at the level of the ankle mortise. This is new since prior radiographs of November 21, 2019. A lucency within the medial malleolus is likely artifactual. IMPRESSION: 1. Lucency with cortical irregularity of the distal left fibula at the level of the ankle mortise. This favors an age indeterminate minimally displaced fracture. Correlation with traumatic history is recommended. 2. Mild medial ankle mortise widening. Although this could be positional, ankle mortise injury cannot be excluded. 3. Lucency within the medial malleolus. This is likely artifactual although a nondisplaced fracture could appear similar. 4. Ankle soft tissue swelling. 5. Osteopenia. ACT 112: Negative or not required by law. Electronically signed by: Benigno Turner M.D. 12/20/2021 1:35 PM Renal Ultrasound 12/21/21 00:00 US renal/blad retro comp CLINICAL HISTORY: Hx of Bladder Ca, OMID TECHNIQUE: Multiple sonographic real-time images of the kidneys and bladder were obtained. COMPARISON: Comparison is made to renal ultrasound 03/30/2016 FINDINGS: The right kidney measures 10.4 cm in length, and the left kidney measures 11.7 cm in length. The right kidney is normal in size, contour, cortical thickness, and e chogenicity. No hydronephrosis is identified. A cyst is seen in the right kidney measuring 1.9 x 2.2 x 2.3 cm. No perinephric fluid collection is seen. The left kidney is normal in size, contour, cortical thickness and echogenicity. No hydronephrosis is identified. Multiple cysts are seen measuring up to 3.7 x 3.6 x 3 point No perinephric fluid collection is seen. The bladder is partially distended. No large intraluminal mass is seen. IMPRESSION: No evidence of hydronephrosis. Renal cysts are again seen bilaterally. ACT 112: Negative or not required by law. Electronically signed by: Andrzej Méndez M.D. 12/21/2021 4:23 PM Venous Doppler Study 12/21/21 00:00 BILATERAL LOWER EXTREMITY VENOUS DOPPLER CLINICAL HISTORY: Rule out DVT COMPARISON STUDY: Left lower extremity venous Doppler ultrasound October 05, 2018. Bilateral lower extremity venous Doppler JUNE 07, 2014. TECHNIQUE: Sonography of the deep venous system of the bilateral lower extremities was performed. Compression and augmentation were evaluated. FINDINGS: This exam was compromised given difficulty positioning. The bilateral common femoral, superficial femoral and popliteal veins were compressible. Augmentation was normal. Flow was shown within the deep calf vessels. IMPRESSION: Technically difficult exam but no evidence of deep venous thrombus within the bilateral lower extremities. ACT 112: Negative or not required by law. Electronically signed by: Benigno Turner M.D. 12/21/2021 4:09 PM Ordered Studies 12/20/21 06:53 CT head/brain wo con Stat 12/21/21 US renal/blad retro comp Routine US venous doppler LE BI Routine Hospital Course (1) Ambulatory dysfunction: (2) OMID (acute kidney injury): (3) Paroxysmal atrial fibrillation: (4) COVID-19: (5) Hypertension: (6) Prostate cancer: Plan Patient is a 76 yr male who has a significant past medical history of prostate cancer, bladder cancer, history of AAA, HTN, osteoporosis, history of cervical spine surgery, lumbar spinal stenosis status post spinal cord stimulator placement, chronic left foot drop, GERD, history of PE status post IVC filter, chronic right arm tremor and history of PMR who presents to ED with recurrent fall. Ambulatory dysfunction, Recurrent Falls Closed fracture of left distal fibula --Ankle X ray:Lucency with cortical irregularity of the distal left fibula at the level of the ankle mortise. This favors an age indeterminate minimally displaced fracture. Correlation with traumatic history is recommended. Mild medial ankle mortise widening. Although this could be positional, ankle mortise injury cannot be excluded. Lucency within the medial malleolus. This is likely artifactual although a nondisplaced fracture could appear similar. Ankle soft tissue swelling. Osteopenia. --Venous Doppler:Technically difficult exam but no evidence of deep venous thrombus within the bilateral lower extremities. Appreciate orthopedics input Nonweightbearing left lower extremity Elevate LE for comfort Use Cam boot Advised to follow-up with orthopedics upon discharge Continue PT/OT Covid 19 infection Chest x-ray: No acute cardiopulmonary findings. Saturating well on room air On chronic prednisone Symptomatic management OMID likely pre-renal, resolved. Renal ultrasound:No evidence of hydronephrosis. Renal cysts are again seen bilaterally. Cr 1.35>0.8 Monitor renal function Atrial fibrillation with RVR Underwent DCCV on 10/16; continue on metoprolol and Xarelto. Echo on 10/11 showed EF of 65 to 70%; no significant valvular heart disease. Appreciate Cardiology Input Increase metoprolol succinate to 50 mg twice daily Advised to follow-up with cardiology upon discharge Prostate Cancer H/O Bladder cancer, chronic incontinence Currently on lupron and zytiga Follows with urology PMR Continue home prednisone DVT Px: On Xarelto Code Status DNR/DNI Disposition Acute Rehab Total Time Total Time Spent Total Time Spent (In Minutes): 49 minutes Discharge Plan Discharge Items Patient Disposition: Transfer Inpatient Rehab Fac Reason For Visit: FALL Discharge Diagnosis: Ambulatory dysfunction, Recurrent Falls Closed fracture of left distal fibula Covid 19 infection Acute kidney injury Atrial fibrillation with RVR Activity: Per Instructions section Exercise/Sports: Gradually increase as tolerated Non-emergency contact: Primary Care Provider, Surgeon and Christmas Tree Grader Call non-emergency contact if: you have any medication questions, your symptoms worsen, your pain is concerning for you and you have a fever Follow-up/Referrals: Clifford Gandhi, DO [Primary Care Provider] - Diet: Heart Healthy Addtl Attending Provider Instructions: Follow-up with your primary care physician in 1 week upon discharge from the office to Follow-up with your boiler house mechanic Dr. Nazario in 3 to 4 weeks Follow-up with your orthopedic surgeon Dr.Joshua Rickey Mendenhall in 4 weeks Medication Changes: --Metoprolol dose is increased to 50 mg twice a day as recommended by her boiler house mechanic for better control of her heart rate --Lisinopril is decreased to 5 mg daily. Discussed with your physician for further adjustment of medications as needed. --Celecoxib is discontinued as it can worsen your kidney function. Seek immediate medical attention if your symptoms reoccur or worsen Please take all medications as instructed on discharge list below. Please call if you have any questions or problems. You can reach a [facility] hospitalist on duty at [facility] 24 hours a day by calling [phone] Coronavirus disease 2019 (COVID-19) is a virus that causes a respiratory illness. It is caused by a coronavirus called 2019 novel coronavirus (2019- nCoV). There are many types of coronavirus. Coronaviruses are a very common cause of bronchitis. They may sometimes cause lung infection(pneumonia). Symptoms can range from mild to severe respiratory illness. These viruses are also foundin some animals. COVID-19 was first found in people in [facility], in late 2019. In 2020, several cases of COVID-19 have been confirmed in the [place] Public health officials are working to find the source. How the virus spreads is not yet fully known. It may be spread through droplets of fluid that a person coughs or sneezes into the air. It may be spread if you touch a surface with virus on it, such as a handle or object, and then touch your mouth. What are the symptoms of COVID-19? Some people have no symptoms or mild symptoms. Symptoms may appear 2 to 14 days after contact with the virus. Symptoms can include: Fever Coughing Trouble breathing What are possible complications from COVID-19? In many cases, this virus can cause infection (pneumonia) in both lungs. In some cases, this can cause . How is COVID-19 diagnosed? Your healthcare provider will ask about your symptoms. He or she will also ask about your recent travel and contact with sick people. Testing for the virus is only done through the CDC. If yourhealthcare provider thinks you may have COVID- 19, he or she will work with your local health department and the CDC on testing. Follow all instructions from your healthcare provider. COVID-19 is diagnosed by: Nasal and throat swab. A cotton-tipped swab is wiped inside your nose or throat. This is done to check for viruses in your nasal mucus. Sputum culture. A small sample of mucus coughed from your lungs (sputum) is collected if you have a cough. It is checked for the virus. How is COVID-19 treated? There is currently no medicine to treat the virus. Treatment is done to help your body while it fights the virus. This is known as supportive care. Supportive care may include: Pain medicine. These include acetaminophen and ibuprofen. They are used to help ease pain and reduce fever. Bed rest. This helps your body fight the illness. For severe illness, you may need to stay in the hospital. Care during severe illness may include: IV (intravenous) fluids.These are given through a vein to help keep your body hydrated. Oxygen. Supplemental oxygen or ventilation with a breathing machine (ventilator) may be given. This is done to keep enough oxygen in your body. Are you at risk for COVID-19? If youve been to a place where people have been sick with this virus, you are at risk for infection. You are at risk if you: Recently traveled to an affected area Had contact with a sick person who recently traveled to this area Had contact with a person who was diagnosed with COVID-19 How can COVID-19 be prevented? There is no vaccine yet. The best prevention is to not have contact with the virus. The CDC advises that people should not travel to areas where there are COVID-19 outbreaks right now for any reason that is not urgent. To help prevent spreading the infection, wash your hands often, or use an alcohol-basedhand webfocus developer. If you are in an area with COVID-19: Wash your hands often. Or use an alcohol-based hand webfocus developer often. Only touch your eyes, nose, or mouth with clean hands. Dont have contact with people who are sick. Follow local instructions about being in public. For example, you may be told to not use public transport for a period of time. Stay away from markets that have live or animals. Wash your hands after touching any animals. Don't touch animals that may be sick. Dont share eating or drinking tools with sick people. Dont kiss someone who is sick. Clean surfaces often with disinfectant. If you were in an area with COVID-19 in the last 14 days: Call your healthcare provider. He or she can talk with local health staff to see what action may be needed. Follow all instructions from your provider. Take your temperature every morning and evening for at least 14 days. This is to check for fever. Keep a record of the readings. Keep watch for symptoms of the virus. Tell your provider right away if you have symptoms. If you were in an area with COVID-19 and have a fever or other symptoms: Dont panic. Keep in mind that other illnesses can cause similar symptoms. Stay away from work, school, and public places. Limit physical contact with family members. Don't kiss anyone or share eating or drinking utensils. Clean surfaces you touch with disinfectant. This is to help prevent the virus from spreading. Call your healthcare provider. Explain that you have been exposed to COVID-19 and have symptoms. Do this before going to any hospital. Wait for instructions. Keep in mind that healthcare staff may wear protective equipment such as masks, gowns, gloves, and eye protection. You may be put in a separate room. This is to prevent the possible virus from spreading. Tell the healthcare staff about recent travel. This includes local travel on public transport. Staff may need to find other people you have been in contact with. Follow all instructions the healthcare staff give you. If you have been diagnosed with COVID-19 Follow all instructions from your healthcare provider. Dont leave your home, except to get medical care. Call your healthcare providers office before going. They can prepare and give you instructions. This will help prevent the virus from spreading. Dont go to work, school, or public areas. Dont use public transport or taxis. Stay away from other people in your home. Have them wear face masks around you. Dont share household items or food. Wear a face mask if you can. This includes at home or in a medical facility. Cover your face with a tissue when you cough or sneeze. Throw the tissue away. Wash your hands. Wash your hands often. Caregivers should: Follow all instructions from healthcare staff. Wear a face mask and protective clothing as advised. Wash hands often. Keep track of the sick persons symptoms. Clean surfaces, fabrics, and laundry thoroughly. Keep other people away from the sick person. When to call your healthcare provider Call your healthcare provider: If youve recently traveled and have symptoms If you have been diagnosed with COVID-19 and your symptoms are worse To learn more To find out more about COVID-19, visit the CDC website at www.cdc.gov/coronavirus/2019-ncov/index.html. [employer]. [address] [place] [address]. All rights reserved. This information is not intended as a substitute for professional medical care. Always follow your healthcare professional's instructions. This information has been adapted from [employer] Pending Studies at Discharge: No Stand-Alone Forms: My [facility] Skilled Items Patient informed of condition?: Yes DNR: Yes Discharge Level of Care: Acute rehab Communicable Disease: Yes Discharge Prognosis: Stable Lines: None Urinary Catheter: No Medications and DC Order Prescriptions: Continued alfuzosin [Uroxatral] 10 mg tablet extended release 24 hr 10 mg PO DAILY Qty: 90 3RF Rx Instructions: administer after the same meal each day Lupron Depot (6 Month) 45 mg Syringe Kit 1 dose IM UD Rx Instructions: [id number] acetaminophen 325 mg Tablet 650 mg PO Q4H PRN (Reason: pain) Qty: 30 0RF prednisone 5 mg tablet 5 mg PO QAM Qty: 30 0RF travoprost [Travatan Z] 0.004 % Drops 1 drp OPB HS Qty: 5 0RF docusate sodium 50 mg Capsule 50 mg PO QAM Qty: 30 0RF baclofen 10 mg tablet 20 mg PO QID Qty: 30 0RF dorzolamide-timolol 22.3-6.8 mg/mL drops 1 drp OPB BID Qty: 10 0RF gabapentin 100 mg capsule 100 mg PO HS Qty: 30 0RF timolol maleate (PF) 0.5 % Dropperette 1 drp OPB BID Qty: 60 0RF Saccharomyces boulardii 250 mg capsule 250 mg PO BID Qty: 14 0RF calcium carbonate-vitamin D3 [Calcium 500 With D] 500 mg(1,250mg) -400 unit Tablet 1 tab PO QAM Qty: 30 0RF oxycodone 10 mg tablet 10 mg PO .q6 prn PRN (Reason: pain) Qty: 14 0RF abiraterone [Zytiga] 250 mg Tablet 1,000 mg PO QAM Qty: 120 0RF Xarelto 20 mg Tablet 20 mg PO QAM Qty: 30 0RF Changed lisinopril 10 mg Tablet 5 mg PO QAM Qty: 30 0RF metoprolol succinate [Toprol XL] 25 mg tablet extended release 24 hr 50 mg PO BID Qty: 60 0RF Discontinued celecoxib 100 mg capsule 100 mg PO BID Qty: 14 0RF Discharge Orders: Discharge Order (Routine); Ordered 12/23/21 Ordered By: Niko Schmidt Admission Data Admit Date/Time: 12/20/21 08:41 Attending Provider: Niko Schmidt Admit Provider: Aakash Duomnt Primary Care Provider: Clifford Gandhi Other Providers: Nadiya Graham ; Cesario Nazario ; Artur Pepper ; [facility] ; Reyna Henson [facility] ; [place],[facility]
--- NOTE | 2021-12-23 14:11 | Cardiology Progress Note ---
Date of Service December 23, 2021 Assessment & Plan (1) Paroxysmal atrial fibrillation: (2) COVID-19: (3) Ambulatory dysfunction: Plan Patient is a 76-year-old male with paroxysmal atrial fibrillation and borderline tachybradycardia syndrome. Recently hospitalized with E. coli bacteremia in September with atrial fibrillation present. Heart rate somewhat difficult to control with pauses induced with the use of digoxin. He underwent synchronized electrical cardioversion. He read presents now after what appears to been a mechanical fall with injury. On presentation he was found to be in atrial fibrillation with mildly elevated average heart rate. Since admission medications have been held at night due to concerns regarding low heart rate on monitor (artifactual) Currently without acute cardiac complaint. Patient unaware of elevated heart rate Will address as follows 1. Paroxysmal atrial fibrillation with elevated ventricular response rate now likely persistent. With ultimate goals being rate control and anticoagulation. His rates trending towards better control. Would increase metoprolol succinate to 50 mg twice per day to ease administration. In future avoid digoxin given past documented pauses No further cardiac recommendations. 2. Borderline tachybradycardia syndrome. Admission and Anticipated Discharge Date Admission Date: December 20, 2021 Subjective Chart reviewed telemetry reviewed. Care discussed with nurse provider Heart rates trending towards better control. Occasional elevation with activity no cardiac symptoms or complaints. Patient chronically anticoagulated Results & Data ([facility]) Vital Signs (Past 12 Hours) Vital Signs Temp Pulse Pulse Resp BP Pulse Ox O2 Del Method 12/23/21 11:44 36.8 C 91 H 18 99/60 L 94 Room Air 12/23/21 07:45 110 H 12/23/21 07:45 Room Air 12/23/21 07:43 36.8 C 89 16 147/83 H 95 Room Air 12/23/21 03:39 36.4 C L 93 H 16 136/84 95 Room Air
[2021-12-23] MEDS ORDERED: METOPROLOL SUCC 50MG EXT REL TAB PO SCH (21:00)
--- NOTE | 2022-01-01 14:21 | Coding Query ---
To promote full compliance with coding requirements relating to patient care, physician participation is requested in all cases of hospital coder uncertainty. Please assist us with the question(s) below: Coding Question(s): It was noted on the H&P and on the Discharge Summary in the record that the patient has/is suspected to have osteoporosis. According to coding guidelines "a code for osteoporotic fracture, and not a traumatic fracture, should be used for any patient with known osteoporosis who suffers a fracture, even if the patient had a minor fall or trauma, if that fall or trauma would not usually break a normal, healthy bone." Please indicate below the type of fracture: Physician's Response(s): ( ) Osteoporotic fracture of left distal fibula ( ) Traumatic fracture of left distal fibula ( ) Other, please specify ( X ) Unable to be determined MTDD
== END 2021-12-23 15:19 | DRG 91 ==
LOC: ED 06:30 → 2S 08:41 → SUATTDRO 08:41 → 2S 09:52
DX: G47.30 Sleep apnea, unspecified; G60.9 Hereditary and idiopathic neuropathy, unspecified; N17.9 Acute kidney failure, unspecified; M19.90 Unspecified osteoarthritis, unspecified site; S82.832A Other fracture of upper and lower end of left fibula, initial encounter for closed fracture; Z79.818 Long term (current) use of other agents affecting estrogen receptors and estrogen levels; M81.0 Age-related osteoporosis without current pathological fracture; Z88.6 Allergy status to analgesic agent; R53.1 Weakness; Z95.828 Presence of other vascular implants and grafts; I10 Essential (primary) hypertension; Z86.73 Personal history of transient ischemic attack (TIA), and cerebral infarction without residual deficits; Z86.711 Personal history of pulmonary embolism; Z86.718 Personal history of other venous thrombosis and embolism; M21.372 Foot drop, left foot; Z96.82 Presence of neurostimulator; Y99.8 Other external cause status; U07.1 COVID-19; Z88.8 Allergy status to other drugs, medicaments and biological substances; Z79.899 Other long term (current) drug therapy; Z79.01 Long term (current) use of anticoagulants; Z66 Do not resuscitate; I48.19 Other persistent atrial fibrillation; H40.9 Unspecified glaucoma; M48.061 Spinal stenosis, lumbar region without neurogenic claudication; Z82.49 Family history of ischemic heart disease and other diseases of the circulatory system; Z85.51 Personal history of malignant neoplasm of bladder; W19.XXXA Unspecified fall, initial encounter; I49.5 Sick sinus syndrome; M35.3 Polymyalgia rheumatica; Z91.81 History of falling; R29.6 Repeated falls; I71.40 Abdominal aortic aneurysm, without rupture, unspecified; Y92.009 Unspecified place in unspecified non-institutional (private) residence as the place of occurrence of the external cause; Z79.52 Long term (current) use of systemic steroids; Z74.2 Need for assistance at home and no other household member able to render care; Z85.46 Personal history of malignant neoplasm of prostate

== ENCOUNTER 2024-01-12 19:14 | Inpatient (IN) ==
[2024-01-12 19:49] LABS: Basophils # (auto) 0.03 K/uL (0.00-0.20); Basophils % (auto) 0.1 %; Eosinophils # (auto) 0.02 K/uL (0.00-0.50); Eosinophils % (auto) 0.1 %; Hematocrit (blood only) 42.1 % (42.0-52.0); Hemoglobin 13.6 g/dl (14.0-18.0); Immature Granulocytes % (auto) 0.5 %; Lymphocytes # (auto) 0.81 K/uL (1.20-3.40); Mean Corpuscular Hemoglobin 27.3 pg (25.0-34.0); Mean Corpuscular Hgb Conc 32.3 g/dL (32.0-36.0); Mean Corpuscular Volume 84.4 fL (80.0-100.0); Mean Platelet Volume 9.7 fL (9.4-12.4); Monocytes # (auto) 1.47 K/uL (0.11-0.59); Monocytes % (auto) 7.2 %; Neutrophils # (auto) 17.85 K/uL (1.40-6.50); Neutrophils % (auto) 88.1 %; Platelet Count 163 K/uL (130-400); RDW Coefficient of Variation 14.9 % (11.5-14.5); RDW Standard Deviation 45.6 fL (36.4-46.3); Red Blood Count 4.99 M/uL (4.70-6.10); White Blood Count 20.28 K/ul (4.8-10.8)
[2024-01-12 20:00] LABS: iSTAT Creatinine 1.2 mg/dl (0.6-1.3); iSTAT Hemoglobin 14.6 g/dl (14.0-18.0); iSTAT Ionized Calcium 1.19 mmol/l (1.12-1.32)
--- NOTE | 2024-01-12 20:01 | Emergency Department Note ---
Impression & Plan AMS (altered mental status), Sepsis, Leukocytosis, Elevated procalcitonin, Encephalopathy ED Provider Note HISTORY OF PRESENT ILLNESS: Patient is a 78-year-old male presenting with altered mental status. Patient is obtunded and does not give any meaningful history. He does awaken to painful stimulus, but falls asleep immediately. EMS reports that the called because the patient seemed very sleepy. presents to bedside later and provides more history. States that the patient was his normal self today and he had PT/OT today at home. States that the patient went down for a nap at 1500 and woke up and was very lethargic and sleepy. States that he was very weak at home and with his confusion, she grew concerned and called 911. No reported recent falls. Patient is ambulatory with a walker at baseline. No reported fevers. reports he has had "chills and shakes all day long." No recent sick contact exposures. No vomiting or diarrhea. reports patient takes oxycodone for his chronic back pain. ROS: as above PHYSICAL EXAM: Constitutional: Patient appears in no acute distress. HENT: Head: Normocephalic and atraumatic. Eyes: EOMI, PERRL Mouth/Throat: Mucous membranes moist. Neck: Trachea midline. Neck supple. Cardiovascular: Tachycardic with irregular rhythm. No murmurs, rubs or gallops. Intact distal pulses. Pulmonary/Chest: No respiratory distress. Breath sounds clear and equal bilaterally. No wheezes or rales. Abdominal: Abdomen soft, no tenderness, rebound or guarding. Musculoskeletal: No edema, tenderness or deformity noted. Skin: Warm and dry. No rash, erythema, pallor or cyanosis Neurological: Alert to physical stimuli, but continues to fall asleep mid- sentence. CN II-XII grossly intact MDM: - Vitals signs showed hypertension and tachycardia. - History obtained via EMS and patient's , given patient's confusion. History as above. - CT head wo contrast negative for intracranial hemorrhage, per my interpretation. - Patient significantly obtunded and falls asleep after only speaking 1 or 2 words. He was given 0.4 mg of IV Narcan without any improvement in his mental status. He does not appear to have a gag reflex when tested. I did discuss the concern for patient's altered mental status with the . Patient does have a DNR/DNI dated for November 2021 on his chart. However, she discussed that he would want a breathing tube if it would save his life. Patient was brought to a resuscitation bay and after Ramirez catheter was inserted, he became more alert. However, after about 5 minutes he then fell asleep. He does intermittently seems to have notable rigors. His temperature is 37.4 with a temp sensing Ramirez. However, shortly after being inserted, the patient was noted to be febrile at 38.3. 1 g IV Tylenol ordered. Blood cultures were ordered, in addition to lactate and procalcitonin. IV Rocephin and vancomycin were ordered for empiric antibiotic coverage. - Given patient being obtunded, further laboratory workup was added. Salicylate, alcohol and acetaminophen levels were added to the blood work. CTA of the head and neck were also ordered for further strokelike workup. CT chest/abdomen/pelvis was also ordered. - Chronic conditions affecting care: paroxysmal Afib; HTN; HLD; DVT and PE; prostate cancer; chronic back pain; TIA - Differential diagnoses include, but are not limited to: CVA; intracranial hemorrhage; ACS; pneumonia; UTI; viral syndrome; opioid overdose - Order placed for continuous cardiac monitoring. At this time, monitor showed rate of 80 bpm with irregular rhythm, per my interpretation. - External medical records reviewed. Wound visit note dated 01/04/2024 was reviewed. Patient has a pressure ulcer on his right ankle and a traumatic open wound of his left lower leg. - EKG interpreted by myself showed atrial fibrillation. Rate 78 bpm. QT 362. No acute ischemic changes. - Laboratory workup interpreted by myself showed leukocytosis (WBC 20.28); elevated INR (1.2); stable electrolytes; elevated BUN (39); normal troponin; elevated procalcitonin (1.66); normal TSH; negative alcohol/salicylate/acetaminophen levels; normal lactate - UA negative for infection - CXR negative for pneumonia, per my interpretation - Viral respiratory panel negative - VBG normal - UDS positive for opiates (patient is on oxycodone) - CT head wo contrast negative for acute pathology - CTA head/neck negative for acute pathology - CT chest/abdomen/pelvis with IV contrast showed scattered bilateral linear parenchymal densities suggestive of atelectasis; noted to have significant degenerative changes throughout the lumbar spine. Also has an abdominal left lateral saccular aneurysm and involving the infrarenal abdominal aorta that appears bigger in size as compared to 2021. - Blood cultures obtained - Patient given 1500 cc NS in ER. Patient sepsis fluid volume calculation based on ideal body weight is 1854.30 mL. - Empirically started on IV vancomycin and rocephin. - Unclear source for patient's sepsis and encephalopathy at this time. Considered lumbar puncture, but patient has a spinal stimulator in and has had previous laminectomy procedure. He is being empirically covered with antibiotics at this time. - Discussion was had with patient case coordinator about patient's case and need for admission - Hospitalist, Dr. Nick, consulted for admission - [facility]. I have personally spent 42 minutes of critical care time in the direct management of this patient. This includes bedside care, interpretation of diagnostic studies, and testing, discussion with consultants, patient, and family members, and other required patient management activities. This 42 minutes is in excess of all separately billable procedures. ASSESSMENT AND PLAN: Diagnosis: altered mental status; sepsis; leukocytosis; elevated procalcitonin; encephalopathy Plan: admit Past Med/Surg History Problem List (Updated 01/13/24 @ 00:45 by Radha Liu MD) Encephalopathy (Acute) Elevated procalcitonin (Acute) Leukocytosis (Acute) Sepsis (Acute) AMS (altered mental status) (Acute) Traumatic open wound of left lower leg Open wound of finger (Acute) Pressure ulcer of right ankle, stage 3 (Acute) Lower urinary tract symptoms Malignant neoplasm of urinary bladder hx DVT (deep venous thrombosis) (Acute) Prostate cancer (Acute) Pulmonary embolism (Acute) History of laminectomy (Acute) Confusion (Acute) Diffuse abdominal pain (Acute) Pneumonia of both lower lobes Supratherapeutic INR (Acute) TIA (transient ischemic attack) (Acute) Unresponsive episode History of laminectomy Encounter for pre-operative examination Chronic low back pain with bilateral sciatica Slurred speech (Acute) Change in mental status (Acute) Dehydration (Acute) OMID (acute kidney injury) Constipation Discharge planning issues Metatarsal fracture Foot pain Peripheral neuropathy Spinal stenosis Gait disorder CHI (closed head injury) (Acute) Traumatic ecchymosis of face (Acute) E coli bacteremia Pyelonephritis Paroxysmal atrial fibrillation Hypertension OMID (acute kidney injury) (Acute) Ambulatory dysfunction Generalized weakness Idiopathic polyneuropathy Neuromuscular junction disorder Dysuria COVID-19 (Acute) Closed fracture of left distal fibula Medical History Lower urinary tract symptoms Presence of neurostimulator BACK/MEDTRONIC History of kidney infection FALL OF 2021/RESOLVED HTN (hypertension) Left foot drop Neuropathy History of DVT (deep vein thrombosis) HX LEG FX/IVC FILTER Sleepiness ONGOING ...NO CHANGE IN BASELINE History of COVID-09 DEC 2021 History of recent hospitalization SEP 2021 - SEPSIS & AFIB/HX CARDIOVERSION NOV 2021 FOR FALL/FX LEFT LEG (NO SX INTERVENTION) ...[facility] ..CONTINUES IN HOME PT /OT Acid reflux Prostate cancer Malignant neoplasm of urinary bladder hx History of bladder cancer s/p TURBT 06/2016 History of ITP 2013, tx with prednisone H/O prostate cancer S/P PROSTATECTOMY 2006 Glaucoma Osteoarthritis Chronic back pain LEFT LEG Overactive bladder NOT VERIFIED DURING PAT PHONE CALL Pulmonary embolism FROM DVT 2014 [place] filter in place 2015 Deep vein thrombosis S/P LEG INJURY 2014 On anticoagulant therapy Transient ischemic attack (TIA) HX, COUPLE YEARS AGO, UNCLEAR IF ACTUAL TIA. PT ON XARELTO NOW FOR DVT/PE HX. MULTIPLE SUSPECTED OVER LAST 8 YRS/MOST RECENT WITHIN LAST 6 MON. HAS HAD BRAIN SCANS (NEGATIVE). Sleep apnea CPAP (no use for past 3 yrs/gives pt nightmares) Abdominal aortic aneurysm Surgical History History of right cataract surgery History of endoscopy History of colonoscopy History of cardioversion History of back surgery SEVERAL - HARD TO LIE FLAT History of bladder surgery TURBT 06/2016 History of total hip arthroplasty R/L H/O shoulder surgery RIGHT Hx of cervical spine surgery ANTERIOR - LIMITED ROM History of prostatectomy S/P PROSTATE CANCER 2005- s/p radiation and prostatectomy. Recurrent disease found in lymph node 2014. Family History Mother Alzheimer disease Father Aortic aneurysm Other Family history non-contributory Social History Smoking Status: Current every day smoker Tobacco Type: Cigars Cigarettes Per Day: 3-4 SVETLANA SWEETS A DAY; Second Hand Exposure: No; Do You Dip or Chew Tobacco: No; Hx Alcohol Use: Yes (OCC SOCIAL DRINK) Alcohol type: beer, wine and hard liquor Hx Substance Use: No Preferred Language: [place]er Communication Ability: Effective Staff Research Scientist Required: No Beliefs That Will Affect Care: None and Church Church Beliefs: PRESYBETERIAN marital status: Current Living Situation: Spouse Feels Safe at Home: Yes Assistive Devices: Walker and Wheelchair Allergies Allergies Allergy/AdvReac Type Severity Reaction Status Date / Time adalimumab Allergy Severe Unknown Verified 01/04/24 14:19 [email or web address] Allergy Intermediate Unknown Verified 01/04/24 14:19 methotrexate Allergy Unknown Blood Verified 01/04/24 14:19 platelets drop. naproxen Allergy Unknown Unknown Verified 01/04/24 14:19 [email or web address] [From Mucinex] AdvReac Unknown "ENHANCES Verified 01/04/24 14:19 ALL OTHER MEDS HE IS ON" DELUSIONAL OTC COLD MEDICATIONS AdvReac Unknown "ENHANCES Uncoded 01/04/24 14:19 ALL OTHER MEDS HE IS ON" DELUSIONAL Home Meds Home Medications Medication Instructions Recorded Confirmed diclofenac sodium 1 % topical gel 2 g topical UD PRN THUMB ARTHRITIS 03/17/22 01/12/24 famotidine 20 mg tablet 20 mg PO HS 03/17/22 01/12/24 oxycodone 10 mg tablet 10 mg PO QID pain 03/17/22 01/12/24 polyethylene glycol 3350 17 gram 17 g PO UD PRN Constipation 03/17/22 01/12/24 oral powder packet (Miralax) rivaroxaban 20 mg tablet (Xarelto) 20 mg PO QDD 03/17/22 01/12/24 baclofen 10 mg tablet See Rx Instructions .Route .COMPLEX 01/18/23 01/12/24 brimonidine 0.2 % eye drops 1 drp OPL BID 01/18/23 01/12/24 docusate sodium 100 mg capsule 100 mg PO QDL Constipation 01/18/23 01/12/24 fluticasone propionate 50 2 spray intranasal QAM 01/18/23 01/12/24 mcg/actuation nasal spray,suspension ipratropium bromide 21 mcg (0.03 2 spray intranasal HS 01/18/23 01/12/24 %) nasal spray alfuzosin 10 mg tablet,extended 10 mg PO QDD 03/04/23 01/12/24 release 24 hr gabapentin 100 mg capsule 100 mg PO QAM 03/04/23 01/12/24 gabapentin 100 mg capsule 300 mg PO HS 03/04/23 01/12/24 multivitamin 1 tab PO QDL 03/04/23 01/12/24 abiraterone 250 mg tablet (Zytiga) 1,000 mg PO DAILYBB 01/12/24 01/12/24 acetaminophen 500 mg tablet 500 mg PO TID 01/12/24 01/12/24 furosemide 20 mg tablet 20 mg PO QAM 01/12/24 01/12/24 lisinopril 5 mg tablet 5 mg PO QAM 01/12/24 01/12/24 metoprolol succinate 25 mg 50 mg PO AMHS 01/12/24 01/12/24 tablet,extended release 24 hr (Toprol XL) prednisone 5 mg tablet 5 mg PO DAILYBB 01/12/24 01/12/24 Previous Rx's Medication Instructions Recorded dorzolamide 22.3 mg-timolol 6.8 1 drp OPB BID #10 mL 10/22/21 mg/mL eye drops travoprost 0.004 % eye drops 1 drp OPB HS #5 mL 10/22/21 (Travatan Z) Results & Data (ED) Vital Signs Vital Signs - 24 hr 01/12/24 19:36 01/12/24 19:42 01/12/24 20:06 Temperature 37.4 C Temperature Source Oral Pulse Rate 93 H 90 Pulse Rate [Apical] Pulse Rate from SpO2 Sensor 73 Pulse Rhythm Regular Pulse Rhythm [Apical] Pulse Strength Normal Respiratory Rate 20 12 Respiratory Effort / Characteristics Non-Labored Spontaneous Respiratory Depth Normal Respiratory Pattern Regular Blood Pressure 147/102 H Blood Pressure [Left Arm] Blood Pressure Mean 117 Blood Pressure Mean [Left Arm] Blood Pressure Position Lying Pulse Oximetry 96 92 98 Oxygen Delivery Method Room Air Room Air Room Air Oxygen Flow Rate Fraction of Inspired Oxygen Sepsis Recent Fever Within 48 Hours No Sepsis New/Unexplained Change in Mental Status Yes Sepsis Action Taken by Nursing No Action Required 01/12/24 20:10 01/12/24 20:33 01/12/24 20:39 Temperature Temperature Source Pulse Rate 112 H 102 H Pulse Rate [Apical] Pulse Rate from SpO2 Sensor 82 Pulse Rhythm Pulse Rhythm [Apical] Pulse Strength Respiratory Rate 24 Respiratory Effort / Characteristics Respiratory Depth Respiratory Pattern Blood Pressure 175/118 H Blood Pressure [Left Arm] Blood Pressure Mean 137 Blood Pressure Mean [Left Arm] Blood Pressure Position Pulse Oximetry 98 88 L Oxygen Delivery Method Room Air Room Air Oxygen Flow Rate Fraction of Inspired Oxygen Sepsis Recent Fever Within 48 Hours Sepsis New/Unexplained Change in Mental Status Sepsis Action Taken by Nursing 01/12/24 20:51 01/12/24 21:24 01/12/24 21:27 Temperature Temperature Source Pulse Rate 88 80 78 Pulse Rate [Apical] Pulse Rate from SpO2 Sensor 84 76 Pulse Rhythm Pulse Rhythm [Apical] Pulse Strength Respiratory Rate 17 12 22 Respiratory Effort / Characteristics Respiratory Depth Respiratory Pattern Blood Pressure 170/117 H 133/86 Blood Pressure [Left Arm] Blood Pressure Mean 134 101 Blood Pressure Mean [Left Arm] Blood Pressure Position Pulse Oximetry 91 99 Oxygen Delivery Method High Flow Nasal Cannula Oxyhood Oxygen Flow Rate 30 3 Fraction of Inspired Oxygen 30 Sepsis Recent Fever Within 48 Hours Sepsis New/Unexplained Change in Mental Status Sepsis Action Taken by Nursing 01/12/24 21:30 01/12/24 21:30 01/12/24 21:45 Temperature Temperature Source Pulse Rate Pulse Rate [Apical] Pulse Rate from SpO2 Sensor Pulse Rhythm Pulse Rhythm [Apical] Pulse Strength Respiratory Rate Respiratory Effort / Characteristics Respiratory Depth Respiratory Pattern Blood Pressure 160/114 H 160/114 H 112/75 Blood Pressure [Left Arm] Blood Pressure Mean 118 118 83 Blood Pressure Mean [Left Arm] Blood Pressure Position Pulse Oximetry Oxygen Delivery Method Oxygen Flow Rate Fraction of Inspired Oxygen Sepsis Recent Fever Within 48 Hours Sepsis New/Unexplained Change in Mental Status Sepsis Action Taken by Nursing 01/12/24 21:45 01/12/24 21:51 01/12/24 21:57 Temperature Temperature Source Pulse Rate 71 72 Pulse Rate [Apical] Pulse Rate from SpO2 Sensor 87 72 Pulse Rhythm Pulse Rhythm [Apical] Pulse Strength Respiratory Rate 19 16 Respiratory Effort / Characteristics Respiratory Depth Respiratory Pattern Blood Pressure 112/75 Blood Pressure [Left Arm] Blood Pressure Mean 83 Blood Pressure Mean [Left Arm] Blood Pressure Position Pulse Oximetry 99 99 Oxygen Delivery Method Oxygen Flow Rate Fraction of Inspired Oxygen Sepsis Recent Fever Within 48 Hours Sepsis New/Unexplained Change in Mental Status Sepsis Action Taken by Nursing 01/12/24 22:00 01/12/24 22:00 01/12/24 22:00 Temperature Temperature Source Pulse Rate Pulse Rate [Apical] Pulse Rate from SpO2 Sensor Pulse Rhythm Pulse Rhythm [Apical] Pulse Strength Respiratory Rate Respiratory Effort / Characteristics Respiratory Depth Respiratory Pattern Blood Pressure 102/62 102/62 102/62 Blood Pressure [Left Arm] Blood Pressure Mean 69 69 69 Blood Pressure Mean [Left Arm] Blood Pressure Position Pulse Oximetry Oxygen Delivery Method Oxygen Flow Rate Fraction of Inspired Oxygen Sepsis Recent Fever Within 48 Hours Sepsis New/Unexplained Change in Mental Status Sepsis Action Taken by Nursing 01/12/24 22:15 01/12/24 22:15 01/12/24 22:15 Temperature Temperature Source Pulse Rate 70 Pulse Rate [Apical] Pulse Rate from SpO2 Sensor 72 Pulse Rhythm Pulse Rhythm [Apical] Pulse Strength Respiratory Rate 15 Respiratory Effort / Characteristics Respiratory Depth Respiratory Pattern Blood Pressure 102/63 102/63 Blood Pressure [Left Arm] Blood Pressure Mean 78 78 Blood Pressure Mean [Left Arm] Blood Pressure Position Pulse Oximetry 100 Oxygen Delivery Method Oxygen Flow Rate Fraction of Inspired Oxygen Sepsis Recent Fever Within 48 Hours Sepsis New/Unexplained Change in Mental Status Sepsis Action Taken by Nursing 01/12/24 22:21 01/12/24 22:40 01/12/24 22:42 Temperature Temperature Source Pulse Rate 72 69 Pulse Rate [Apical] Pulse Rate from SpO2 Sensor 74 69 Pulse Rhythm Pulse Rhythm [Apical] Pulse Strength Respiratory Rate 16 16 Respiratory Effort / Characteristics Respiratory Depth Respiratory Pattern Blood Pressure 97/58 L Blood Pressure [Left Arm] Blood Pressure Mean 60 Blood Pressure Mean [Left Arm] Blood Pressure Position Pulse Oximetry 100 100 Oxygen Delivery Method Oxygen Flow Rate Fraction of Inspired Oxygen Sepsis Recent Fever Within 48 Hours Sepsis New/Unexplained Change in Mental Status Sepsis Action Taken by Nursing 01/12/24 23:00 01/12/24 23:33 01/13/24 00:33 Temperature 37.6 C H Temperature Source Ramirez Cath ( Temp Sensing) Pulse Rate 59 L 57 L Pulse Rate [Apical] 61 Pulse Rate from SpO2 Sensor Pulse Rhythm Pulse Rhythm [Apical] Irregular Pulse Strength Respiratory Rate 18 13 Respiratory Effort / Characteristics Spontaneous Respiratory Depth Normal Respiratory Pattern Blood Pressure 104/71 Blood Pressure [Left Arm] 120/84 Blood Pressure Mean 82 Blood Pressure Mean [Left Arm] 96 Blood Pressure Position Pulse Oximetry 98 97 Oxygen Delivery Method Oxymask Oxygen Flow Rate 3 Fraction of Inspired Oxygen Sepsis Recent Fever Within 48 Hours Sepsis New/Unexplained Change in Mental Status Sepsis Action Taken by Nursing Laboratory Data 01/12/24 19:35 01/12/24 19:35 Lab Results 01/12/24 01/12/24 01/12/24 Range/Units 19:35 19:37 19:40 WBC 20.28 H (4.8-10.8) K/ul RBC 4.99 (4.70-6.10) M/uL Hgb 13.6 L (14.0-18.0) g/dl POC Hgb 14.6 (14.0-18.0) g/dl Hct 42.1 (42.0-52.0) % POC Hct 43 (42-52) % MCV 84.4 (80.0-100.0) fL MCH 27.3 (25.0-34.0) pg MCHC 32.3 (32.0-36.0) g/dL RDW Std Deviation 45.6 (36.4-46.3) fL RDW Coeff of Luis Angel 14.9 H (11.5-14.5) % Plt Count 163 (130-400) K/uL MPV 9.7 (9.4-12.4) fL Immature Gran % (Auto) 0.5 % Neut % (Auto) 88.1 % Lymph % (Auto) 4.0 % Major % (Auto) 7.2 % Eos % (Auto) 0.1 % Baso % (Auto) 0.1 % Neut # (Auto) 17.85 H (1.40-6.50) K/uL Lymph # (Auto) 0.81 L (1.20-3.40) K/uL Major # (Auto) 1.47 H (0.11-0.59) K/uL Eos # (Auto) 0.02 (0.00-0.50) K/uL Baso # (Auto) 0.03 (0.00-0.20) K/uL Immature Gran # (Auto) 0.10 (0.01-0.20) K/uL PT 13.3 H (9.0-12.0) Seconds INR 1.2 H (0.9-1.1) Specimen Type POC pH (7.35-7.45) POC pCO2 (35-46) mmHg POC pO2 (80-95) mmHg POC HCO3 (19-24) timo/L POC Base Excess (-9-1.8) timo/L POC ABG O2 Sat (90-95) % VBG pH (7.36-7.41) VBG pCO2 (38-50) mmHg VBG pO2 mmHg VBG HCO3 mmol/L VBG O2 Saturation % VBG Base Excess mEq/L POC Sodium 140 (135-144) mmol/L Sodium 141 (136-145) mmol/L POC Potassium 4.0 (3.3-5.0) mmol/L Potassium 4.0 (3.5-5.1) mmol/L POC Chloride 105 (101-112) mmol/L Chloride 105 (98-107) mmol/L Carbon Dioxide 29 (21-32) mmol/L POC Total CO2 23 L (24-31) mmol/L Anion Gap 7 (3-11) POC Anion Gap 17.0 (16-25) mmol/L POC BUN 36 H (7-18) mg/dl BUN 39 H (6-23) mg/dl Creatinine 1.18 (0.6-1.4) mg/dl POC Creatinine 1.2 (0.6-1.3) mg/dl Est Cr Clr Drug Dosing Not Reportable eGFR 62.38 BUN/Creatinine Ratio 33.1 H (10-20) Glucose 107 H (70-99(Fasting)) mg/dl POC Glucose 105 H (70-99) mg/dl POC Glucose (other) 105 H (70-99) mg/dl Lactate (0.4-2.0) mmol/L Calcium 9.7 (8.6-10.3) mg/dl POC Ioniz Calcium Mao 1.19 (1.12-1.32) mmol/l Magnesium 1.9 (1.7-2.4) mg/dl Total Bilirubin 0.9 (0.2-1.0) mg/dl AST 16 (13-39) U/L ALT 9 (7-52) U/L Alkaline Phosphatase 47 (34-104) U/L Troponin I High Sens 17.3 (0-20) pg/ml Total Protein 7.1 (6.0-8.3) gm/dl Albumin 4.1 (3.4-5.0) gm/dl Globulin 3.0 (2.5-4.0) gm/dl Albumin/Globulin Ratio 1.4 (0.9-2) Procalcitonin 1.66 H (0-0.5) ng/ml TSH 1.058 (0.300-4.500) uIu/ml Urine Color Urine Appearance (Clear) Urine pH (4.5-7.5) Ur Specific [place] (1.000-1.030) Urine Protein (Negative) Urine Glucose (UA) (Negative) Urine Ketones (Negative) Urine Blood (Negative) Urine Nitrite (Negative) Urine Bilirubin (Negative) Urine Urobilinogen (Negative) Ur Leukocyte Esterase (Negative) Urine WBC (Auto) (0-5) /hpf Urine RBC (Auto) (0-2) /hpf U Hyaline Cast (Auto) (0-2) /lpf U Epithel Cells (Auto) (0-2) /hpf Urine Bacteria (Auto) (None Seen) Salicylates < 3.0 L (3.0-30) mg/dl Urine Opiates Screen (Neg) Ur Methadone, Qual (Neg) Urine Fentanyl Screen (Neg) Acetaminophen < 3 L (10-30) ug/ml Urine Barbiturates (Neg) Ur Phencyclidine (PCP) (Neg) U Amphetamin/Meth Scrn (Neg) MDMA (Ecstasy) Screen (Neg) U Benzodiazepines Scrn (Neg) Ur Cocaine Metabolite (Neg) U Marijuana (THC) Screen (Neg) Ethyl Alcohol mg/dL (<10.0) mg/dl Adenovirus (PCR) (NotDetected) B. pertussis DNA (PCR) (NotDetected) B.parapertussis DNA PCR (NotDetected) C. pneumoniae DNA (PCR) (NotDetected) Coronavirus OC43 (PCR) (NotDetected) Coronavirus HKU1 (PCR) (NotDetected) Coronavirus 229E (PCR) (NotDetected) SARS-CoV-2 (PCR) (NotDetected) Coronavirus NL63 (PCR) (NotDetected) Human Metapneumovir PCR (NotDetected) Influenza Type A (PCR) (NotDetected) Influenza Type B (PCR) (NotDetected) M. pneumoniae (PCR) (NotDetected) Parainfluenza 1 (PCR) (NotDetected) Parainfluenza 2 (PCR) (NotDetected) Parainfluenza 3 (PCR) (NotDetected) Parainfluenza 4 (PCR) (NotDetected) RSV (PCR) (NotDetected) Entero/Rhino (PCR) (NotDetected) 01/12/24 01/12/24 01/12/24 Range/Units 20:00 20:42 20:56 WBC (4.8-10.8) K/ul RBC (4.70-6.10) M/uL Hgb (14.0-18.0) g/dl POC Hgb (14.0-18.0) g/dl Hct (42.0-52.0) % POC Hct (42-52) % MCV (80.0-100.0) fL MCH (25.0-34.0) pg MCHC (32.0-36.0) g/dL RDW Std Deviation (36.4-46.3) fL RDW Coeff of Luis Angel (11.5-14.5) % Plt Count (130-400) K/uL MPV (9.4-12.4) fL Immature Gran % (Auto) % Neut % (Auto) % Lymph % (Auto) % Major % (Auto) % Eos % (Auto) % Baso % (Auto) % Neut # (Auto) (1.40-6.50) K/uL Lymph # (Auto) (1.20-3.40) K/uL Major # (Auto) (0.11-0.59) K/uL Eos # (Auto) (0.00-0.50) K/uL Baso # (Auto) (0.00-0.20) K/uL Immature Gran # (Auto) (0.01-0.20) K/uL PT (9.0-12.0) Seconds INR (0.9-1.1) Specimen Type POC pH (7.35-7.45) POC pCO2 (35-46) mmHg POC pO2 (80-95) mmHg POC HCO3 (19-24) timo/L POC Base Excess (-9-1.8) timo/L POC ABG O2 Sat (90-95) % VBG pH 7.40 (7.36-7.41) VBG pCO2 46 (38-50) mmHg VBG pO2 < 20 mmHg VBG HCO3 29 mmol/L VBG O2 Saturation < 60.0 % VBG Base Excess 3.0 mEq/L POC Sodium (135-144) mmol/L Sodium (136-145) mmol/L POC Potassium (3.3-5.0) mmol/L Potassium (3.5-5.1) mmol/L POC Chloride (101-112) mmol/L Chloride (98-107) mmol/L Carbon Dioxide (21-32) mmol/L POC Total CO2 (24-31) mmol/L Anion Gap (3-11) POC Anion Gap (16-25) mmol/L POC BUN (7-18) mg/dl BUN (6-23) mg/dl Creatinine (0.6-1.4) mg/dl POC Creatinine (0.6-1.3) mg/dl Est Cr Clr Drug Dosing eGFR BUN/Creatinine Ratio (10-20) Glucose (70-99(Fasting)) mg/dl POC Glucose (70-99) mg/dl POC Glucose (other) (70-99) mg/dl Lactate 1.1 (0.4-2.0) mmol/L Calcium (8.6-10.3) mg/dl POC Ioniz Calcium Mao (1.12-1.32) mmol/l Magnesium (1.7-2.4) mg/dl Total Bilirubin (0.2-1.0) mg/dl AST (13-39) U/L ALT (7-52) U/L Alkaline Phosphatase (34-104) U/L Troponin I High Sens (0-20) pg/ml Total Protein (6.0-8.3) gm/dl Albumin (3.4-5.0) gm/dl Globulin (2.5-4.0) gm/dl Albumin/Globulin Ratio (0.9-2) Procalcitonin (0-0.5) ng/ml TSH (0.300-4.500) uIu/ml Urine Color Urine Appearance (Clear) Urine pH (4.5-7.5) Ur Specific [place] (1.000-1.030) Urine Protein (Negative) Urine Glucose (UA) (Negative) Urine Ketones (Negative) Urine Blood (Negative) Urine Nitrite (Negative) Urine Bilirubin (Negative) Urine Urobilinogen (Negative) Ur Leukocyte Esterase (Negative) Urine WBC (Auto) (0-5) /hpf Urine RBC (Auto) (0-2) /hpf U Hyaline Cast (Auto) (0-2) /lpf U Epithel Cells (Auto) (0-2) /hpf Urine Bacteria (Auto) (None Seen) Salicylates (3.0-30) mg/dl Urine Opiates Screen (Neg) Ur Methadone, Qual (Neg) Urine Fentanyl Screen (Neg) Acetaminophen (10-30) ug/ml Urine Barbiturates (Neg) Ur Phencyclidine (PCP) (Neg) U Amphetamin/Meth Scrn (Neg) MDMA (Ecstasy) Screen (Neg) U Benzodiazepines Scrn (Neg) Ur Cocaine Metabolite (Neg) U Marijuana (THC) Screen (Neg) Ethyl Alcohol mg/dL (<10.0) mg/dl Adenovirus (PCR) Not Detected (NotDetected) B. pertussis DNA (PCR) Not Detected (NotDetected) B.parapertussis DNA PCR Not Detected (NotDetected) C. pneumoniae DNA (PCR) Not Detected (NotDetected) Coronavirus OC43 (PCR) Not Detected (NotDetected) Coronavirus HKU1 (PCR) Not Detected (NotDetected) Coronavirus 229E (PCR) Not Detected (NotDetected) SARS-CoV-2 (PCR) Not Detected (NotDetected) Coronavirus NL63 (PCR) Not Detected (NotDetected) Human Metapneumovir PCR Not Detected (NotDetected) Influenza Type A (PCR) Not Detected (NotDetected) Influenza Type B (PCR) Not Detected (NotDetected) M. pneumoniae (PCR) Not Detected (NotDetected) Parainfluenza 1 (PCR) Not Detected (NotDetected) Parainfluenza 2 (PCR) Not Detected (NotDetected) Parainfluenza 3 (PCR) Not Detected (NotDetected) Parainfluenza 4 (PCR) Not Detected (NotDetected) RSV (PCR) Not Detected (NotDetected) Entero/Rhino (PCR) Not Detected (NotDetected) 01/12/24 01/12/24 01/12/24 Range/Units 21:01 22:10 Unknown WBC (4.8-10.8) K/ul RBC (4.70-6.10) M/uL Hgb (14.0-18.0) g/dl POC Hgb 13.6 L (14.0-18.0) g/dl Hct (42.0-52.0) % POC Hct 40 L (42-52) % MCV (80.0-100.0) fL MCH (25.0-34.0) pg MCHC (32.0-36.0) g/dL RDW Std Deviation (36.4-46.3) fL RDW Coeff of Luis Angel (11.5-14.5) % Plt Count (130-400) K/uL MPV (9.4-12.4) fL Immature Gran % (Auto) % Neut % (Auto) % Lymph % (Auto) % Major % (Auto) % Eos % (Auto) % Baso % (Auto) % Neut # (Auto) (1.40-6.50) K/uL Lymph # (Auto) (1.20-3.40) K/uL Major # (Auto) (0.11-0.59) K/uL Eos # (Auto) (0.00-0.50) K/uL Baso # (Auto) (0.00-0.20) K/uL Immature Gran # (Auto) (0.01-0.20) K/uL PT (9.0-12.0) Seconds INR (0.9-1.1) Specimen Type Arterial POC pH 7.41 (7.35-7.45) POC pCO2 37 (35-46) mmHg POC pO2 74 L (80-95) mmHg POC HCO3 24 (19-24) timo/L POC Base Excess -1.0 (-9-1.8) timo/L POC ABG O2 Sat 95.0 (90-95) % VBG pH (7.36-7.41) VBG pCO2 (38-50) mmHg VBG pO2 mmHg VBG HCO3 mmol/L VBG O2 Saturation % VBG Base Excess mEq/L POC Sodium 141 (135-144) mmol/L Sodium (136-145) mmol/L POC Potassium 3.1 L (3.3-5.0) mmol/L Potassium (3.5-5.1) mmol/L POC Chloride (101-112) mmol/L Chloride (98-107) mmol/L Carbon Dioxide (21-32) mmol/L POC Total CO2 25 (24-31) mmol/L Anion Gap (3-11) POC Anion Gap (16-25) mmol/L POC BUN (7-18) mg/dl BUN (6-23) mg/dl Creatinine (0.6-1.4) mg/dl POC Creatinine (0.6-1.3) mg/dl Est Cr Clr Drug Dosing eGFR BUN/Creatinine Ratio (10-20) Glucose (70-99(Fasting)) mg/dl POC Glucose (70-99) mg/dl POC Glucose (other) (70-99) mg/dl Lactate (0.4-2.0) mmol/L Calcium (8.6-10.3) mg/dl POC Ioniz Calcium Mao (1.12-1.32) mmol/l Magnesium (1.7-2.4) mg/dl Total Bilirubin (0.2-1.0) mg/dl AST (13-39) U/L ALT (7-52) U/L Alkaline Phosphatase (34-104) U/L Troponin I High Sens (0-20) pg/ml Total Protein (6.0-8.3) gm/dl Albumin (3.4-5.0) gm/dl Globulin (2.5-4.0) gm/dl Albumin/Globulin Ratio (0.9-2) Procalcitonin (0-0.5) ng/ml TSH (0.300-4.500) uIu/ml Urine Color Yellow Urine Appearance Clear (Clear) Urine pH 6.5 (4.5-7.5) Ur Specific Ladora 1.019 (1.000-1.030) Urine Protein 1+ H (Negative) Urine Glucose (UA) Negative (Negative) Urine Ketones Trace H (Negative) Urine Blood 2+ H (Negative) Urine Nitrite Negative (Negative) Urine Bilirubin Negative (Negative) Urine Urobilinogen Negative (Negative) Ur Leukocyte Esterase Negative (Negative) Urine WBC (Auto) 0-5 (0-5) /hpf Urine RBC (Auto) >20 H (0-2) /hpf U Hyaline Cast (Auto) 0-2 (0-2) /lpf U Epithel Cells (Auto) 0-2 (0-2) /hpf Urine Bacteria (Auto) None Seen (None Seen) Salicylates (3.0-30) mg/dl Urine Opiates Screen Pos H (Neg) Ur Methadone, Qual Neg (Neg) Urine Fentanyl Screen Neg (Neg) Acetaminophen (10-30) ug/ml Urine Barbiturates Neg (Neg) Ur Phencyclidine (PCP) Neg (Neg) U Amphetamin/Meth Scrn Neg (Neg) MDMA (Ecstasy) Screen Neg (Neg) U Benzodiazepines Scrn Neg (Neg) Ur Cocaine Metabolite Neg (Neg) U Marijuana (THC) Screen Neg (Neg) Ethyl Alcohol mg/dL < 10.0 (<10.0) mg/dl Adenovirus (PCR) (NotDetected) B. pertussis DNA (PCR) (NotDetected) B.parapertussis DNA PCR (NotDetected) C. pneumoniae DNA (PCR) (NotDetected) Coronavirus OC43 (PCR) (NotDetected) Coronavirus HKU1 (PCR) (NotDetected) Coronavirus 229E (PCR) (NotDetected) SARS-CoV-2 (PCR) (NotDetected) Coronavirus NL63 (PCR) (NotDetected) Human Metapneumovir PCR (NotDetected) Influenza Type A (PCR) (NotDetected) Influenza Type B (PCR) (NotDetected) M. pneumoniae (PCR) (NotDetected) Parainfluenza 1 (PCR) (NotDetected) Parainfluenza 2 (PCR) (NotDetected) Parainfluenza 3 (PCR) (NotDetected) Parainfluenza 4 (PCR) (NotDetected) RSV (PCR) (NotDetected) Entero/Rhino (PCR) (NotDetected) Administered Medications Discontinued Medications Ceftriaxone Sodium (Ceftriaxone Sodium 2000mg/50ml D5w) Confirm Administered Dose 2,000 mg IV .STK-MED ONE Stop: 01/12/24 20:52 Last Admin: 01/12/24 21:10 Dose: 2,000 mg Documented By: EUNICE Vancomycin HCl 1,250 mg/ (Sodium Chloride) 525 mls @ 200 mls/hr IV NOW ONE Stop: 01/12/24 23:34 Last Infusion: 01/13/24 00:29 Dose: Infused Documented By: Admin: 01/12/24 21:51 Dose: 200 mls/hr Documented By: IDD Acetaminophen (Ofirmev) 1,000 mg in 100 mls @ 400 mls/hr IV NOW STA Stop: 01/12/24 21:13 Last Infusion: 01/12/24 21:51 Dose: Infused Documented By: Admin: 01/12/24 21:29 Dose: 400 mls/hr Documented By: EUNICE Sodium Chloride (Nss) 1,000 mls @ 999 mls/hr IV .Q1H1M ONE Stop: 01/12/24 22:00 Last Infusion: 01/12/24 22:38 Dose: Infused Documented By: Admin: 01/12/24 21:29 Dose: 999 mls/hr Documented By: EUNICE Sodium Chloride (Nss) 500 mls @ 999 mls/hr IV .Q31M ONE Stop: 01/12/24 23:08 Last Infusion: 01/12/24 23:28 Dose: Infused Documented By: Admin: 01/12/24 22:40 Dose: 999 mls/hr Documented By: SCOTTIE Ioversol (Optiray 320 125ml) 115 ml IV ONCE ONE Stop: 01/12/24 21:23 Last Admin: 01/12/24 21:22 Dose: 115 ml Documented By: CATERINA Miscellaneous (Rapid Sequence Induction Bag) Confirm Administered Dose 1 each N/A .STK-MED ONE Stop: 01/12/24 20:41 Last Admin: 01/12/24 23:43 Dose: Not Given Documented By: EUNICE Naloxone HCl (Naloxone Hcl 0.4 Mg/1 Ml Vial/Carp) 0.4 mg IV NOW STA Stop: 01/12/24 20:21 Last Admin: 01/12/24 20:22 Dose: 0.4 mg Documented By: [facility] Imaging Data Radiologist's Impression: Chest X-Ray 01/12/24 19:36 Exam(s): XR CXR 1 VIEW EXAM: XR Chest, 1 View CLINICAL HISTORY: Reason for exam: confusion. TECHNIQUE: Frontal view of the chest. COMPARISON: No relevant prior studies available. FINDINGS: Lungs: Unremarkable. No consolidation. Pleural space: Unremarkable. No pneumothorax. Heart: Mild cardiomegaly. Mediastinum: Unremarkable. Normal mediastinal contour. Bones/joints: The bones are osteopenic. No acute fracture. IMPRESSION: No acute pulmonary process identified Electronically signed by: Galdino Duarte MD 01/12/24 20:[address] 01/12/24 19:36 Exam(s): CT HEAD Without Contrast EXAM: CT Head Without Intravenous Contrast CLINICAL HISTORY: confusion. TECHNIQUE: Axial computed tomography images of the head/brain without intravenous contrast. CTDI is 62 mGy and DLP is 961 mGy-cm. Automated exposure control was utilized for the study. A dose lowering technique was utilized adhering to the principles of ALARA. COMPARISON: CT head without contrast dated 12/20/2021 FINDINGS: Limitations: There is motion artifact, which degrades image quality on multiple image slices. Brain: No definite intracranial hemorrhage; evaluation for subtle extra-axial pathology along the margins of the parenchyma is limited in regions of streak motion artifact. There are a few areas of decreased attenuation in the deep cerebral white matter consistent with mild small vessel ischemic/degenerative changes. The cerebral and cerebellar sulci are mildly prominent consistent with mild brain atrophy. No significant mass effect identified. Ventricles: No midline shift or significant effacement of the ventricles. Bones/joints: No definite skull fracture. Soft tissues: Unremarkable. Vasculature: Atherosclerotic disease. Sinuses: Unremarkable as visualized. No acute sinusitis. Mastoid air cells: Unremarkable as visualized. No mastoid effusion. IMPRESSION: Accounting for motion artifact, no definite acute intracranial process or significant alteration from the prior examination. Chronic underlying presumed age-related findings, not appreciably altered when compared to the prior examination. Electronically signed by: Jerome Abbott MD 01/12/24 21:14 PM Head CTA 01/12/24 20:43 Exam(s): CTA HEAD With Contrast IV Amt: 115 ml optiray 320 EXAM: CT Angiography Head With Intravenous Contrast CLINICAL HISTORY: altered mental status. TECHNIQUE: Axial computed tomographic angiography images of the head with intravenous contrast. CTDI is 26 mGy and DLP is 1186 mGy-cm. Automated exposure control was utilized for the study. A dose lowering technique was utilized adhering to the principles of ALARA. 3D and MIP reconstructed images were created and reviewed. CONTRAST: Patient received 115 ml optiray 320 of IV contrast COMPARISON: CT head 01/12/2024. FINDINGS: Right internal carotid artery: Mild calcified plaque at the cavernous internal carotid artery with intact distal runoff. No aneurysm. Right anterior cerebral artery: Unremarkable. No occlusion or significant stenosis. No aneurysm. Right middle cerebral artery: Unremarkable. No occlusion or significant stenosis. No aneurysm. Right posterior cerebral artery: Unremarkable. No occlusion or significant stenosis. No aneurysm. Right vertebral artery: Unremarkable as visualized. Left internal carotid artery: Mild calcified plaque at the cavernous internal carotid artery with intact distal runoff. No aneurysm. Left anterior cerebral artery: Unremarkable. No occlusion or significant stenosis. No aneurysm. Left middle cerebral artery: Unremarkable. No occlusion or significant stenosis. No aneurysm. Left posterior cerebral artery: Unremarkable. No occlusion or significant stenosis. No aneurysm. Left vertebral artery: Unremarkable as visualized. Basilar artery: Unremarkable. No occlusion or significant stenosis. No aneurysm. IMPRESSION: No large vessel occlusion. Electronically signed by: Delfino Monae M.D. 01/12/24 21:56 PM Neck CTA 01/12/24 20:43 Exam(s): CTA NECK With Contrast IV Amt: 115 ml optiray 320 EXAM: CT Angiography Neck With Intravenous Contrast CLINICAL HISTORY: altered mental status. TECHNIQUE: Routine carotid CT angiography protocol was performed with intravenous contrast. NASCET criteria using the distal ICAs for comparison were used for evaluation of stenoses. CTDI is 26 mGy and DLP is 1186 mGy-cm. Automated exposure control was utilized for the study. A dose lowering technique was utilized adhering to the principles of ALARA. 3D and MIP reconstructed images were created and reviewed. CONTRAST: Patient received 115 ml optiray 320 of IV contrast COMPARISON: None. FINDINGS: VASCULATURE: Right common carotid artery: Unremarkable. No occlusion or significant stenosis. No dissection. Right internal carotid artery: Mild calcified plaque at the carotid bulb without a hemodynamically significant stenosis. No dissection. Right external carotid artery: Unremarkable. No occlusion. Right vertebral artery: Unremarkable. No occlusion or significant stenosis. No dissection. Left common carotid artery: Unremarkable. No occlusion or significant stenosis. No dissection. Left internal carotid artery: Mild calcified plaque at the carotid bulb without a hemodynamically significant stenosis. No dissection. Left external carotid artery: Unremarkable. No occlusion. Left vertebral artery: Unremarkable. No occlusion or significant stenosis. No dissection. NECK: Bones/joints: Degenerative and postoperative changes of the spine. No acute fracture. Soft tissues: Unremarkable. Lung apices: Clear. CAROTID STENOSIS REFERENCE USING NASCET CRITERIA: % ICA stenosis = (1 - narrowest ICA diameter/diameter of distal cervical ICA) x 100. Mild - <50% stenosis. Moderate - 50-69% stenosis. Severe - 70-94% stenosis. Near occlusion - 95-99% stenosis. Occluded - 100% stenosis. IMPRESSION: Mild calcified plaque at the bilateral carotid bulbs without a hemodynamically significant stenosis. Electronically signed by: Delfino Monae M.D. 01/12/24 22:02 PM Abdomen/Pelvis CT 01/12/24 21:00 Exam(s): CT ABDOMEN + PELVIS With Contrast IV Amt: 115 ml optiray 320 EXAM: CT Abdomen and Pelvis With Intravenous Contrast CLINICAL HISTORY: altered mental status; back pain. TECHNIQUE: Axial computed tomography images of the abdomen and pelvis with intravenous contrast. CTDI is 26 mGy and DLP is 1186 mGy-cm. Automated exposure control was utilized for the study. A dose lowering technique was utilized adhering to the principles of ALARA. CONTRAST: Patient received 115 ml optiray 320 of IV contrast COMPARISON: No relevant prior studies available. FINDINGS: Limitations: There is respiratory artifact, which degrades image quality throughout the examination. Lung bases: Curvilinear changes at the lung bases are presumed atelectasis or scarring. ABDOMEN: Liver: Ovoid hypoattenuating structure in the posterior central liver adjacent to the intrahepatic IVC measuring 2 cm, stable in size. Gallbladder and bile ducts: Similar mild central intrahepatic biliary ectasia. The common bile duct does not appear to be significantly enlarged. Pancreas: Unremarkable. No mass. No ductal dilation. Spleen: Unremarkable. No splenomegaly. Adrenals: Unremarkable. No mass. Kidneys and ureters: Multiple renal cortical cysts noted. Evaluation is somewhat limited by respiratory artifact. No obvious solid or enhancing components. The largest cyst anteriorly on the left no measures 3.6 cm from 4 cm previously. Stomach and bowel: Unremarkable. No obstruction. No mucosal thickening. PELVIS: Appendix: No findings to suggest acute appendicitis. Bladder: A Ramirez catheter is noted in the bladder which is only mildly distended. Detailed evaluation is somewhat limited by artifact from the bilateral hip arthroplasties. Postsurgical changes suggested about the bladder suggesting prior prostatectomy. Reproductive: Unremarkable as visualized. ABDOMEN and PELVIS: Intraperitoneal space: Unremarkable. No free air. No significant fluid collection. 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 Severe multilevel disc spondylosis with scoliosis, convex left and extensive at least moderately severe degenerative changes. Similar degenerative ankylosis at L1-2 level. No definite acute osseous traumatic injury. Bilateral hip arthroplasties. Soft tissues: Unremarkable. 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 The inferior aspect of the aneurysm, best appreciated on coronal reformatted imaging is more convex in the aneurysm now measures 3.1 cm craniocaudal by 3.9 cm transverse (to include the aorta and aneurysm). Previously this measured 2.4 x 3.3 cm. There aneurysm also measures 3.2 cm AP from 2.4 cm previously. The aneurysm wall is slightly thickened. No definite periaortic fat stranding or hematoma. The abdominal aorta is heavily calcified, as are the iliac arteries. No definite occlusion. IVC filter incidentally noted in the infrarenal IVC. Lymph nodes: Unremarkable. No enlarged lymph nodes. Tubes, lines and devices: Spinal stimulator leads are noted entering the central canal at T10-11 level and extending slightly superior in the central canal. The spinal stimulator generator overlies the left superior gluteal region, stable. IMPRESSION: 1. 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 The inferior aspect of the aneurysm, best appreciated on coronal reformatted imaging is more convex in the aneurysm now measures 3.1 cm craniocaudal by 3.9 cm transverse (to include the aorta and aneurysm). Previously this measured 2.4 x 3.3 cm. There aneurysm also measures 3.2 cm AP from 2.4 cm previously. The aneurysm wall is slightly thickened. No definite periaortic fat stranding or hematoma. Recommend referral to vascular surgery for further workup and potential treatment. 2. 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 Severe multilevel disc spondylosis with scoliosis, convex left and extensive at least moderately severe degenerative changes. Similar degenerative ankylosis at L1-2 level. No definite acute osseous traumatic injury. Electronically signed by: Jerome Abbott MD 01/12/24 22:[address] 01/12/24 21:00 Exam(s): CT CHEST With Contrast IV Amt: 115 ml optiray 320 EXAM: CT Chest With Intravenous Contrast CLINICAL HISTORY: altered mental status. TECHNIQUE: Axial computed tomography images of the chest with intravenous contrast. CTDI is 26 mGy and DLP is 1186 mGy-cm. Automated exposure control was utilized for the study. A dose lowering technique was utilized adhering to the principles of ALARA. CONTRAST: Patient received 115 ml optiray 320 of IV contrast COMPARISON: Chest x-ray 01/12/2024, CT chest 05/15/2015. FINDINGS: Lungs: Scattered bilateral linear parenchymal densities suggesting atelectasis, greatest in the right upper and lower lobe. No dense focal lobar consolidation. Pleural space: Unremarkable. No pneumothorax. No pleural effusion. Heart: Unremarkable. No cardiomegaly. No significant pericardial effusion. Coronary artery calcifications. Bones/joints: S-shaped scoliosis with diffuse degenerative changes of the thoracic spine. No acute fracture. There is thoracic intraspinal stimulator leads. Soft tissues: Unremarkable. Vasculature: Atherosclerotic vascular calcifications. No thoracic aortic aneurysm or dissection. Lymph nodes: Unremarkable. No enlarged lymph nodes. Abdomen: Unremarkable gallbladder. Intrahepatic biliary ductal dilatation. Multiple probable renal and liver cysts. IMPRESSION: Scattered bilateral linear parenchymal densities suggesting atelectasis, greatest in the right upper and lower lobe. No dense focal lobar consolidation. Senescent changes. Electronically signed by: Delfino Monae M.D. 01/12/24 22:15 PM Discharge Plan Visit Data Chief Complaint: Altered Mental Status Stated Complaint: Lower Back Pain ED Provider: Radha Liu Discharge Problem: AMS (altered mental status), Sepsis, Leukocytosis, Elevated procalcitonin, Encephalopathy Forms Stand Alone Forms: [facility] Prescriptions Prescriptions: No Action multivitamin Tablet 1 tab PO QDL gabapentin 100 mg capsule 100 mg PO QAM alfuzosin 10 mg tablet extended release 24 hr 10 mg PO QDD Rx Instructions: administer after the same meal each day travoprost [Travatan Z] 0.004 % Drops 1 drp OPB HS Qty: 5 0RF dorzolamide-timolol 22.3-6.8 mg/mL drops 1 drp OPB BID Qty: 10 0RF brimonidine 0.2 % Drops 1 drp OPL BID docusate sodium 100 mg Capsule 100 mg PO QDL fluticasone propionate 50 mcg/actuation spray,suspension 2 spray INTRANASAL QAM ipratropium bromide 21 mcg (0.03 %) spray,non-aerosol 2 spray INTRANASAL HS baclofen 10 mg tablet See Rx Instructions .ROUTE .COMPLEX Rx Instructions: take by mouth 1 tablet at breakfast,2 tablets at lunch,1 tablet at supper,2 tablets at bedtime polyethylene glycol 3350 [Miralax] 17 gram Powder In Packet 17 g PO UD PRN (Reason: Constipation) famotidine 20 mg Tablet 20 mg PO HS diclofenac sodium 1 % Gel 2 g TOPICAL UD PRN (Reason: THUMB ARTHRITIS) Rx Instructions: apply to single elbow, wrist or hand; for hand includes palm/fingers/back of hand oxycodone 10 mg tablet 10 mg PO QID Patient Comments: TAKES EVERY DAY Xarelto 20 mg tablet 20 mg PO QDD gabapentin 100 mg capsule 300 mg PO HS lisinopril 5 mg Tablet 5 mg PO QAM prednisone 5 mg tablet 5 mg PO DAILYBB Patient Comments: IN CONJUNCTION WITH ZYTIGA abiraterone [Zytiga] 250 mg tablet 1,000 mg PO DAILYBB furosemide 20 mg Tablet 20 mg PO QAM metoprolol succinate [Toprol XL] 25 mg tablet extended release 24 hr 50 mg PO AMHS acetaminophen 500 mg Tablet 500 mg PO TID Rx Instructions: 500mg at mid morning,after lunch,at bedtime Referrals Referrals: Clifford Gandhi DO [Primary Care Provider] -
[2024-01-12 20:04] LABS: Alanine Aminotransferase 9 U/L (7-52); Albumin Globulin Ratio 1.4 (0.9-2); Albumin Level 4.1 gm/dl (3.4-5.0); Alkaline Phosphatase 47 U/L (34-104); Anion Gap 7 (3-11); Aspartate Aminotransferase 16 U/L (13-39); BUN Creatinine Ratio 33.1 (10-20); Bilirubin,Total 0.9 mg/dl (0.2-1.0); Blood Urea Nitrogen 39 mg/dl (6-23); Calcium 9.7 mg/dl (8.6-10.3); Carbon Dioxide 29 mmol/L (21-32); Chloride 105 mmol/L (98-107); Glucose 107 mg/dl (70-99(Fasting)); Magnesium 1.9 mg/dl (1.7-2.4); Sodium 141 mmol/L (136-145); Total Protein 7.1 gm/dl (6.0-8.3)
[2024-01-12 20:12] LABS: INR 1.2 (0.9-1.1); Prothrombin Time 13.3 Seconds (9.0-12.0); Troponin I High Sensitivity 17.3 pg/ml (0-20)
--- NOTE | 2024-01-12 20:21 | XRay Report ---
Exam(s): XR CXR 1 VIEW EXAM: XR Chest, 1 View CLINICAL HISTORY: Reason for exam: confusion. TECHNIQUE: Frontal view of the chest. COMPARISON: No relevant prior studies available. FINDINGS: Lungs: Unremarkable. No consolidation. Pleural space: Unremarkable. No pneumothorax. Heart: Mild cardiomegaly. Mediastinum: Unremarkable. Normal mediastinal contour. Bones/joints: The bones are osteopenic. No acute fracture. IMPRESSION: No acute pulmonary process identified Electronically signed by: Galdino Duarte MD 01/12/24 20:20 PM
[2024-01-12 20:22] LABS: Thyroid Stimulating Hormone 1.058 uIu/ml (0.300-4.500)
[2024-01-12] MEDS: NALOXONE HCL 0.4 MG/1 ML VIAL/CARP IV STA (20:22)
[2024-01-12 20:53] LABS: HCO3 VBG 29 mmol/L; Oxygen Saturation VBG < 60.0 %; PCO2 VBG 46 mmHg (38-50); PO2 VBG < 20 mmHg
[2024-01-12] MEDS ORDERED: VANCOMYCIN CONSULT ACTIVE PRN (20:57)
[2024-01-12] MEDS: cefTRIAXone SODIUM 2000MG/50ML D5W IV ONE (21:10)
[2024-01-12 21:13] LABS: iSTAT Arterial Blood Gas HCO3 24 meg/L (19-24); iSTAT Arterial Blood Gas pCO2 37 mmHg (35-46); iSTAT Arterial Blood Gas pH 7.41 (7.35-7.45); iSTAT Arterial Blood Gas pO2 74 mmHg (80-95); iSTAT Carbon Dioxide 25 mmol/L (24-31); iSTAT Hematocrit 40 % (42-52); iSTAT Hemoglobin 13.6 g/dl (14.0-18.0); iSTAT Potassium 3.1 mmol/L (3.3-5.0); iSTAT Sample Type Arterial; iSTAT Sodium 141 mmol/L (135-144)
--- NOTE | 2024-01-12 21:15 | CT Scan Report ---
Exam(s): CT HEAD Without Contrast EXAM: CT Head Without Intravenous Contrast CLINICAL HISTORY: confusion. TECHNIQUE: Axial computed tomography images of the head/brain without intravenous contrast. CTDI is 62 mGy and DLP is 961 mGy-cm. Automated exposure control was utilized for the study. A dose lowering technique was utilized adhering to the principles of ALARA. COMPARISON: CT head without contrast dated 12/20/2021 FINDINGS: Limitations: There is motion artifact, which degrades image quality on multiple image slices. Brain: No definite intracranial hemorrhage; evaluation for subtle extra-axial pathology along the margins of the parenchyma is limited in regions of streak motion artifact. There are a few areas of decreased attenuation in the deep cerebral white matter consistent with mild small vessel ischemic/degenerative changes. The cerebral and cerebellar sulci are mildly prominent consistent with mild brain atrophy. No significant mass effect identified. Ventricles: No midline shift or significant effacement of the ventricles. Bones/joints: No definite skull fracture. Soft tissues: Unremarkable. Vasculature: Atherosclerotic disease. Sinuses: Unremarkable as visualized. No acute sinusitis. Mastoid air cells: Unremarkable as visualized. No mastoid effusion. IMPRESSION: Accounting for motion artifact, no definite acute intracranial process or significant alteration from the prior examination. Chronic underlying presumed age-related findings, not appreciably altered when compared to the prior examination. Electronically signed by: Jerome Abbott MD 01/12/24 21:14 PM
[2024-01-12 21:17] LABS: Adenovirus PCR Not Detected (NotDetected); Bordetella parapertussis PCR Not Detected (NotDetected); Bordetella pertussis PCR Not Detected (NotDetected); Chlamydia pneumoniae PCR Not Detected (NotDetected); Coronavirus 229E PCR Not Detected (NotDetected); Coronavirus CoV-2 (COVID19)PCR Not Detected (NotDetected); Coronavirus HKU1 PCR Not Detected (NotDetected); Coronavirus NL63 PCR Not Detected (NotDetected); Coronavirus OC43PCR Not Detected (NotDetected); Human Metapneumovirus PCR Not Detected (NotDetected); Influenza A PCR Not Detected (NotDetected); Influenza B PCR Not Detected (NotDetected); Mycoplasma pneumoniae PCR Not Detected (NotDetected); Parainfluenza Virus 1 PCR Not Detected (NotDetected); Parainfluenza Virus 2 PCR Not Detected (NotDetected); Parainfluenza Virus 3 PCR Not Detected (NotDetected); Parainfluenza Virus 4 PCR Not Detected (NotDetected); Respiratory Syncytial VirusPCR Not Detected (NotDetected); Rhinovirus/Enterovirus PCR Not Detected (NotDetected)
[2024-01-12] MEDS: OPTIRAY 320 125ml IV ONE (21:22)
[2024-01-12] MEDS: SODIUM CHLORIDE 0.9% 1,000 ML IV ONE (21:29)
[2024-01-12] MEDS: ACETAMINOPHEN 1,000 MG/100 ML VIAL IV STA (21:29)
[2024-01-12 21:32] LABS: Appearance Urine Clear (Clear); Bacteria Urine Automated None Seen (None Seen); Bilirubin Urine Negative (Negative); Blood Urine 2+ (Negative); Cast Urine Automated 0-2 /lpf (0-2); Color Urine Yellow; Epithelial Cell Urine Auto 0-2 /hpf (0-2); Glucose Urine UA Negative (Negative); Ketones Urine Trace (Negative); Leukocyte Esterase Urine Negative (Negative); Nitrite Urine Negative (Negative); Protein Urine 1+ (Negative); RBC Urine Automated >20 /hpf (0-2); Specific Gravity Urine 1.019 (1.000-1.030); Urobilinogen Urine Negative (Negative); WBC Urine Automated 0-5 /hpf (0-5); pH Urine 6.5 (4.5-7.5)
[2024-01-12 21:46] LABS: Amphetamines+Metham, Urine Neg (Neg); Barbiturates, Urine Neg (Neg); Benzodiazepine, Urine Neg (Neg); Cocaine, Urine Neg (Neg); Fentanyl, Urine Neg (Neg); MDMA (Ecstacy), Urine Neg (Neg); Marijuana, Urine Neg (Neg); Methadone, Urine Neg (Neg); Opiate, Urine Pos (Neg); Phencyclidine, Urine Neg (Neg)
[2024-01-12 21:46] LABS: Acetaminophen < 3 ug/ml (10-30); Salicylate < 3.0 mg/dl (3.0-30)
[2024-01-12] MEDS: VANCOMYCIN HCL 1,250 MG in SODIUM CHLORIDE 0.9% 500 ML IV ONE (21:51)
--- NOTE | 2024-01-12 21:57 | CT Scan Report ---
Exam(s): CTA HEAD With Contrast IV Amt: 115 ml optiray 320 EXAM: CT Angiography Head With Intravenous Contrast CLINICAL HISTORY: altered mental status. TECHNIQUE: Axial computed tomographic angiography images of the head with intravenous contrast. CTDI is 26 mGy and DLP is 1186 mGy-cm. Automated exposure control was utilized for the study. A dose lowering technique was utilized adhering to the principles of ALARA. 3D and MIP reconstructed images were created and reviewed. CONTRAST: Patient received 115 ml optiray 320 of IV contrast COMPARISON: CT head 01/12/2024. FINDINGS: Right internal carotid artery: Mild calcified plaque at the cavernous internal carotid artery with intact distal runoff. No aneurysm. Right anterior cerebral artery: Unremarkable. No occlusion or significant stenosis. No aneurysm. Right middle cerebral artery: Unremarkable. No occlusion or significant stenosis. No aneurysm. Right posterior cerebral artery: Unremarkable. No occlusion or significant stenosis. No aneurysm. Right vertebral artery: Unremarkable as visualized. Left internal carotid artery: Mild calcified plaque at the cavernous internal carotid artery with intact distal runoff. No aneurysm. Left anterior cerebral artery: Unremarkable. No occlusion or significant stenosis. No aneurysm. Left middle cerebral artery: Unremarkable. No occlusion or significant stenosis. No aneurysm. Left posterior cerebral artery: Unremarkable. No occlusion or significant stenosis. No aneurysm. Left vertebral artery: Unremarkable as visualized. Basilar artery: Unremarkable. No occlusion or significant stenosis. No aneurysm. IMPRESSION: No large vessel occlusion. Electronically signed by: Delfino Monae M.D. 01/12/24 21:56 PM
--- NOTE | 2024-01-12 22:03 | CT Scan Report ---
Exam(s): CTA NECK With Contrast IV Amt: 115 ml optiray 320 EXAM: CT Angiography Neck With Intravenous Contrast CLINICAL HISTORY: altered mental status. TECHNIQUE: Routine carotid CT angiography protocol was performed with intravenous contrast. NASCET criteria using the distal ICAs for comparison were used for evaluation of stenoses. CTDI is 26 mGy and DLP is 1186 mGy-cm. Automated exposure control was utilized for the study. A dose lowering technique was utilized adhering to the principles of ALARA. 3D and MIP reconstructed images were created and reviewed. CONTRAST: Patient received 115 ml optiray 320 of IV contrast COMPARISON: None. FINDINGS: VASCULATURE: Right common carotid artery: Unremarkable. No occlusion or significant stenosis. No dissection. Right internal carotid artery: Mild calcified plaque at the carotid bulb without a hemodynamically significant stenosis. No dissection. Right external carotid artery: Unremarkable. No occlusion. Right vertebral artery: Unremarkable. No occlusion or significant stenosis. No dissection. Left common carotid artery: Unremarkable. No occlusion or significant stenosis. No dissection. Left internal carotid artery: Mild calcified plaque at the carotid bulb without a hemodynamically significant stenosis. No dissection. Left external carotid artery: Unremarkable. No occlusion. Left vertebral artery: Unremarkable. No occlusion or significant stenosis. No dissection. NECK: Bones/joints: Degenerative and postoperative changes of the spine. No acute fracture. Soft tissues: Unremarkable. Lung apices: Clear. CAROTID STENOSIS REFERENCE USING NASCET CRITERIA: % ICA stenosis = (1 - narrowest ICA diameter/diameter of distal cervical ICA) x 100. Mild - <50% stenosis. Moderate - 50-69% stenosis. Severe - 70-94% stenosis. Near occlusion - 95-99% stenosis. Occluded - 100% stenosis. IMPRESSION: Mild calcified plaque at the bilateral carotid bulbs without a hemodynamically significant stenosis. Electronically signed by: Delfino Monae M.D. 01/12/24 22:02 PM
--- NOTE | 2024-01-12 22:16 | CT Scan Report ---
Exam(s): CT CHEST With Contrast IV Amt: 115 ml optiray 320 EXAM: CT Chest With Intravenous Contrast CLINICAL HISTORY: altered mental status. TECHNIQUE: Axial computed tomography images of the chest with intravenous contrast. CTDI is 26 mGy and DLP is 1186 mGy-cm. Automated exposure control was utilized for the study. A dose lowering technique was utilized adhering to the principles of ALARA. CONTRAST: Patient received 115 ml optiray 320 of IV contrast COMPARISON: Chest x-ray 01/12/2024, CT chest 05/15/2015. FINDINGS: Lungs: Scattered bilateral linear parenchymal densities suggesting atelectasis, greatest in the right upper and lower lobe. No dense focal lobar consolidation. Pleural space: Unremarkable. No pneumothorax. No pleural effusion. Heart: Unremarkable. No cardiomegaly. No significant pericardial effusion. Coronary artery calcifications. Bones/joints: S-shaped scoliosis with diffuse degenerative changes of the thoracic spine. No acute fracture. There is thoracic intraspinal stimulator leads. Soft tissues: Unremarkable. Vasculature: Atherosclerotic vascular calcifications. No thoracic aortic aneurysm or dissection. Lymph nodes: Unremarkable. No enlarged lymph nodes. Abdomen: Unremarkable gallbladder. Intrahepatic biliary ductal dilatation. Multiple probable renal and liver cysts. IMPRESSION: Scattered bilateral linear parenchymal densities suggesting atelectasis, greatest in the right upper and lower lobe. No dense focal lobar consolidation. Senescent changes. Electronically signed by: Delfino Monae M.D. 01/12/24 22:15 PM
--- NOTE | 2024-01-12 22:23 | CT Scan Report ---
Exam(s): CT ABDOMEN + PELVIS With Contrast IV Amt: 115 ml optiray 320 EXAM: CT Abdomen and Pelvis With Intravenous Contrast CLINICAL HISTORY: altered mental status; back pain. TECHNIQUE: Axial computed tomography images of the abdomen and pelvis with intravenous contrast. CTDI is 26 mGy and DLP is 1186 mGy-cm. Automated exposure control was utilized for the study. A dose lowering technique was utilized adhering to the principles of ALARA. CONTRAST: Patient received 115 ml optiray 320 of IV contrast COMPARISON: No relevant prior studies available. FINDINGS: Limitations: There is respiratory artifact, which degrades image quality throughout the examination. Lung bases: Curvilinear changes at the lung bases are presumed atelectasis or scarring. ABDOMEN: Liver: Ovoid hypoattenuating structure in the posterior central liver adjacent to the intrahepatic IVC measuring 2 cm, stable in size. Gallbladder and bile ducts: Similar mild central intrahepatic biliary ectasia. The common bile duct does not appear to be significantly enlarged. Pancreas: Unremarkable. No mass. No ductal dilation. Spleen: Unremarkable. No splenomegaly. Adrenals: Unremarkable. No mass. Kidneys and ureters: Multiple renal cortical cysts noted. Evaluation is somewhat limited by respiratory artifact. No obvious solid or enhancing components. The largest cyst anteriorly on the left no measures 3.6 cm from 4 cm previously. Stomach and bowel: Unremarkable. No obstruction. No mucosal thickening. PELVIS: Appendix: No findings to suggest acute appendicitis. Bladder: A Ramirez catheter is noted in the bladder which is only mildly distended. Detailed evaluation is somewhat limited by artifact from the bilateral hip arthroplasties. Postsurgical changes suggested about the bladder suggesting prior prostatectomy. Reproductive: Unremarkable as visualized. ABDOMEN and PELVIS: Intraperitoneal space: Unremarkable. No free air. No significant fluid collection. 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 Severe multilevel disc spondylosis with scoliosis, convex left and extensive at least moderately severe degenerative changes. Similar degenerative ankylosis at L1-2 level. No definite acute osseous traumatic injury. Bilateral hip arthroplasties. Soft tissues: Unremarkable. 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 The inferior aspect of the aneurysm, best appreciated on coronal reformatted imaging is more convex in the aneurysm now measures 3.1 cm craniocaudal by 3.9 cm transverse (to include the aorta and aneurysm). Previously this measured 2.4 x 3.3 cm. There aneurysm also measures 3.2 cm AP from 2.4 cm previously. The aneurysm wall is slightly thickened. No definite periaortic fat stranding or hematoma. The abdominal aorta is heavily calcified, as are the iliac arteries. No definite occlusion. IVC filter incidentally noted in the infrarenal IVC. Lymph nodes: Unremarkable. No enlarged lymph nodes. Tubes, lines and devices: Spinal stimulator leads are noted entering the central canal at T10-11 level and extending slightly superior in the central canal. The spinal stimulator generator overlies the left superior gluteal region, stable. IMPRESSION: 1. 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 The inferior aspect of the aneurysm, best appreciated on coronal reformatted imaging is more convex in the aneurysm now measures 3.1 cm craniocaudal by 3.9 cm transverse (to include the aorta and aneurysm). Previously this measured 2.4 x 3.3 cm. There aneurysm also measures 3.2 cm AP from 2.4 cm previously. The aneurysm wall is slightly thickened. No definite periaortic fat stranding or hematoma. Recommend referral to vascular surgery for further workup and potential treatment. 2. 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 Severe multilevel disc spondylosis with scoliosis, convex left and extensive at least moderately severe degenerative changes. Similar degenerative ankylosis at L1-2 level. No definite acute osseous traumatic injury. Electronically signed by: Jerome Abbott MD 01/12/24 22:22 PM
[2024-01-12] MEDS: SODIUM CHLORIDE 0.9% 500 ML IV ONE (22:40)
[2024-01-12] MEDS: RAPID SEQUENCE INDUCTION BAG ONE (23:43)
--- NOTE | 2024-01-13 01:15 | History & Physical Report ---
Date of Service January 13, 2024 Assessment & Plan (1) AMS (altered mental status): Plan: 78-year-old male with past medical history significant for dyslipidemia, hypertension, peripheral vascular disease, infrarenal abdominal aortic aneurysm, saccular aneurysm, persistent atrial fibrillation, GERD, gastroparesis, drug- induced constipation, prostate cancer, polymyalgia rheumatica, tremor of right hand, osteoporosis, lumbar radiculopathy, failed back syndrome, status post neurostimulator in the back, bilateral open-angle glaucoma moderate stage, polyneuropathy, anemia, monoclonal paraproteinemia, history of bladder cancer, history of pulmonary embolism status post IVC filter, primary insomnia who lives at home with his and ambulates with a walker was brought in because of altered mental status. As per the patient woke up today and was shaky but after taking his pills he seemed okay nd he ate his lunch and went to sleep. When she woke him up around 5 PM he seemed again shaky and was feeling very weak and not able to ambulate and brought in here. In the ER he was very drowsy. Spiking temperatures in the ER. Currently received fluids and antibiotics. Drowsy but arousable. Can tell his name. Knows that he is in the hospital. Kn ows current month and year. Able to obey simple commands. Denies any complaint at this time. As per he was doing okay until this happened. No cough per . No nausea, vomiting or diarrhea. No complaints of any pain. Yesterday he saw cardiology and ambulated okay in the clinic as per his . Currently hemodynamics are okay. and daughter in the room.As per patient had a cat scratch on his left stack couple of weeks ago and it was superficial scratch. Also follows with wound care for the right medial ankle ulcer which is currently small and dry. Altered mental status CT head, CTA head and neck unremarkable CT abdomen and pelvis and CT chest unremarkable except for abdominal aneurysm. Bio fire negative Drug screen positive for opiates screen UA unremarkable Procalcitonin 1.6 TSH normal Lactate 1.1 Creatinine 1.1 LFTs okay ABG okay Leukocytosis WBC 20 Having temp spike Blood pressure okay and pulse okay Patient's mental status somewhat improved after fluids and antibiotics received Vanco and Rocephin in the ER Will continue with Vanco and cefepime Follow cultures Possible cellulitis of left lower extremity Will hold baclofen and gabapentin and oxycodone for now ID consult for further recommendations Close monitor Cat scratch Had a scratch scratch wound on the left stack Empiric azithromycin Possible cellulitis of left lower extremity Mild erythema seen below the cat scratch wound on the left lower extremity Patient has ulcer on the right medial ankle but does not seem to be infected Antibiotics as above History of PE and DVT On Xarelto Status post IVC filter History of A-fib On Xarelto Metoprolol with holding parameters Polymyalgia rheumatica On prednisone 5 mg which will be held Will do short course of stress dose steroids Infrarenal abdominal aneurysm Saccular aneurysm Seems increasing Needs close follow-up with vascular surgery Hypertension Metoprolol and lisinopril with holding parameters Will hold Lasix GERD On famotidine Failed back syndrome Neurostimulator in the back Holding pain medication for now Bilateral open-angle glaucoma moderate stage Continue eyedrops History of nonmuscle invasive bladder cancer Status post TURBT in June 2016 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 History of Present Illness Chief Complaint: Altered mental status Primary Care Provider: Clifford Gandhi, 78-year-old male with past medical history significant for dyslipidemia, hypertension, peripheral vascular disease, infrarenal abdominal aortic aneurysm, saccular aneurysm, persistent atrial fibrillation, GERD, gastroparesis, drug- induced constipation, prostate cancer, polymyalgia rheumatica, tremor of right hand, osteoporosis, lumbar radiculopathy, failed back syndrome, status post neurostimulator in the back, bilateral open-angle glaucoma moderate stage, polyneuropathy, anemia, monoclonal paraproteinemia, history of bladder cancer, history of pulmonary embolism status post IVC filter, primary insomnia who lives at home with his and ambulates with a walker was brought in because of altered mental status. As per the patient woke up today and was shaky but after taking his pills he seemed okay nd he ate his lunch and went to sleep. When she woke him up around 5 PM he seemed again shaky and was feeling very weak and not able to ambulate and brought in here. In the ER he was very drowsy. Spiking temperatures in the ER. Currently received fluids and antibiotics. Drowsy but arousable. Can tell his name. Knows that he is in the hospital. Knows current month and year. Able to obey simple commands. Denies any complaint at this time. As per he was doing okay until this happened. No cough per . No nausea, vomiting or diarrhea. No complaints of any pain. Yesterday he saw cardiology and ambulated okay in the clinic as per his . Currently hemodynamics are okay. and daughter in the room.As per patient had a cat scratch on his left stack couple of weeks ago and it was superficial scratch. Also follows with wound care for the right medial ankle ulcer which is currently small and dry. Past medical history. As mentioned above Past surgical history. Colonoscopy. EGD. EGD with endoscopic ultrasound. IVC filter placement. Laminectomy. Spinal cord stimulator placement. Bilateral cataracts. Prostatectomy. Removal of neck spine disc C3-C4. Tonsillectomy adenoidectomy. Right shoulder cuff repair. Bilateral total hip replacement. Social history. . Smoked cigars in the past. Alcohol glass of wine every week. No drug use. Family history. Father had COPD. Mother has hypertension. Dementia. Eczema. Brother has prostate cancer. Brother has heart disease. Allergies Allergy/AdvReac Type Severity Reaction Status Date / Time adalimumab Allergy Severe Unknown Verified 01/04/24 14:19 [email or web address] Allergy Intermediate Unknown Verified 01/04/24 14:19 methotrexate Allergy Unknown Blood Verified 01/04/24 14:19 platelets drop. naproxen Allergy Unknown Unknown Verified 01/04/24 14:19 [email or web address] [From Mucinex] AdvReac Unknown "ENHANCES Verified 01/04/24 14:19 ALL OTHER MEDS HE IS ON" DELUSIONAL OTC COLD MEDICATIONS AdvReac Unknown "ENHANCES Uncoded 01/04/24 14:19 ALL OTHER MEDS HE IS ON" DELUSIONAL Home Medications Medication Instructions Recorded Confirmed Type dorzolamide 22.3 mg-timolol 6.8 1 drp OPB BID #10 mL 10/22/21 01/12/24 Rx mg/mL eye drops travoprost 0.004 % eye drops 1 drp OPB HS #5 mL 10/22/21 01/12/24 Rx (Travatan Z) diclofenac sodium 1 % topical gel 2 g topical UD PRN THUMB ARTHRITIS 03/17/22 01/12/24 History famotidine 20 mg tablet 20 mg PO HS 03/17/22 01/12/24 History oxycodone 10 mg tablet 10 mg PO QID pain 03/17/22 01/12/24 History polyethylene glycol 3350 17 gram 17 g PO UD PRN Constipation 03/17/22 01/12/24 History oral powder packet (Miralax) rivaroxaban 20 mg tablet (Xarelto) 20 mg PO QDD 03/17/22 01/12/24 History baclofen 10 mg tablet See Rx Instructions .Route .COMPLEX 01/18/23 01/12/24 History brimonidine 0.2 % eye drops 1 drp OPL BID 01/18/23 01/12/24 History docusate sodium 100 mg capsule 100 mg PO QDL Constipation 01/18/23 01/12/24 History fluticasone propionate 50 2 spray intranasal QAM 01/18/23 01/12/24 History mcg/actuation nasal spray,suspension ipratropium bromide 21 mcg (0.03 2 spray intranasal HS 01/18/23 01/12/24 History %) nasal spray alfuzosin 10 mg tablet,extended 10 mg PO QDD 03/04/23 01/12/24 History release 24 hr gabapentin 100 mg capsule 100 mg PO QAM 03/04/23 01/12/24 History gabapentin 100 mg capsule 300 mg PO HS 03/04/23 01/12/24 History multivitamin 1 tab PO QDL 03/04/23 01/12/24 History abiraterone 250 mg tablet (Zytiga) 1,000 mg PO DAILYBB 01/12/24 01/12/24 History acetaminophen 500 mg tablet 500 mg PO TID 01/12/24 01/12/24 History furosemide 20 mg tablet 20 mg PO QAM 01/12/24 01/12/24 History lisinopril 5 mg tablet 5 mg PO QAM 01/12/24 01/12/24 History metoprolol succinate 25 mg 50 mg PO AMHS 01/12/24 01/12/24 History tablet,extended release 24 hr (Toprol XL) prednisone 5 mg tablet 5 mg PO DAILYBB 01/12/24 01/12/24 History Past Med/Surg History Problem List (Updated 01/13/24 @ 00:45 by Radha Liu MD) Encephalopathy (Acute) Elevated procalcitonin (Acute) Leukocytosis (Acute) Sepsis (Acute) AMS (altered mental status) (Acute) Traumatic open wound of left lower leg Open wound of finger (Acute) Pressure ulcer of right ankle, stage 3 (Acute) Lower urinary tract symptoms Malignant neoplasm of urinary bladder hx DVT (deep venous thrombosis) (Acute) Prostate cancer (Acute) Pulmonary embolism (Acute) History of laminectomy (Acute) Confusion (Acute) Diffuse abdominal pain (Acute) Pneumonia of both lower lobes Supratherapeutic INR (Acute) TIA (transient ischemic attack) (Acute) Unresponsive episode History of laminectomy Encounter for pre-operative examination Chronic low back pain with bilateral sciatica Slurred speech (Acute) Change in mental status (Acute) Dehydration (Acute) OMID (acute kidney injury) Constipation Discharge planning issues Metatarsal fracture Foot pain Peripheral neuropathy Spinal stenosis Gait disorder CHI (closed head injury) (Acute) Traumatic ecchymosis of face (Acute) E coli bacteremia Pyelonephritis Paroxysmal atrial fibrillation Hypertension OMID (acute kidney injury) (Acute) Ambulatory dysfunction Generalized weakness Idiopathic polyneuropathy Neuromuscular junction disorder Dysuria COVID-19 (Acute) Closed fracture of left distal fibula Medical History Lower urinary tract symptoms Presence of neurostimulator BACK/MEDTRONIC History of kidney infection FALL OF 2021/RESOLVED HTN (hypertension) Left foot drop Neuropathy History of DVT (deep vein thrombosis) HX LEG FX/IVC FILTER Sleepiness ONGOING ...NO CHANGE IN BASELINE History of COVID-09 DEC 2021 History of recent hospitalization SEP 2021 - SEPSIS & AFIB/HX CARDIOVERSION NOV 2021 FOR FALL/FX LEFT LEG (NO SX INTERVENTION) ...[facility] ..CONTINUES IN HOME PT /OT Acid reflux Prostate cancer Malignant neoplasm of urinary bladder hx History of bladder cancer s/p TURBT 06/2016 History of ITP 2013, tx with prednisone H/O prostate cancer S/P PROSTATECTOMY 2006 Glaucoma Osteoarthritis Chronic back pain LEFT LEG Overactive bladder NOT VERIFIED DURING PAT PHONE CALL Pulmonary embolism FROM DVT [address] [place] [address] 2015 Deep vein thrombosis S/P LEG INJURY 2014 On anticoagulant therapy Transient ischemic attack (TIA) HX, COUPLE YEARS AGO, UNCLEAR IF ACTUAL TIA. PT ON XARELTO NOW FOR DVT/PE HX. MULTIPLE SUSPECTED OVER LAST 8 YRS/MOST RECENT WITHIN LAST 6 MON. HAS HAD BRAIN SCANS (NEGATIVE). Sleep apnea CPAP (no use for past 3 yrs/gives pt nightmares) Abdominal aortic aneurysm Surgical History History of right cataract surgery History of endoscopy History of colonoscopy History of cardioversion History of back surgery SEVERAL - HARD TO LIE FLAT History of bladder surgery TURBT 06/2016 History of total hip arthroplasty R/L H/O shoulder surgery RIGHT Hx of cervical spine surgery ANTERIOR - LIMITED ROM History of prostatectomy S/P PROSTATE CANCER 2005- s/p radiation and prostatectomy. Recurrent disease found in lymph node 2014. Family History Mother Alzheimer disease Father Aortic aneurysm Other Family history non-contributory Social History Smoking Status: Current every day smoker Tobacco Type: Cigars Cigarettes Per Day: 3-4 daily; Second Hand Exposure: No; Do You Dip or Chew Tobacco: No; Hx Alcohol Use: Yes Alcohol type: beer, wine and hard liquor Hx Substance Use: No Preferred Language: [place] Communication Ability: Impaired Forms Analyst Required: No Beliefs That Will Affect Care: None marital status: Current Living Situation: Spouse Other Information That Helps Us Care for You: No Feels Safe at Home: Yes Safety Concerns: Feels Safe At This Time Assistive Devices: Walker and Wheelchair Review of Systems Review of Systems: Unobtainable due to reduced consciousness Physical Exam Physical Exam: General- Drowsy Head- atraumatic Eyes- PERRL ENT- oropharynx dry Neck- supple, no JVD. Lungs- clear to auscultation no wheezing or crackles. Heart- regular rhythm; no murmur, no gallop. Abdomen- normal bowel sounds, soft, nontender, no distension Extremities- cat scratch wound seen on left stack. mild erythema seen below cat scratch. Right medial ankle small dry ulcer seen Neuro- Drowsy but arousable and oriented x3 PERRL, no facial palsy; no dysarthria; tounge midline able to left extremities Results & Data Results & Data Vital Signs (Past 12 Hours) Vital Signs Temp Pulse Pulse Resp BP BP Pulse Ox 01/13/24 00:39 63 15 125/84 100 01/13/24 00:33 57 L 01/13/24 00:00 70 16 126/77 97 01/12/24 23:33 59 L 13 104/71 97 01/12/24 23:00 37.6 C H 61 18 120/84 98 01/12/24 22:42 69 16 100 01/12/24 22:40 97/58 L 01/12/24 22:21 72 16 100 01/12/24 22:15 102/63 01/12/24 22:15 102/63 01/12/24 22:15 70 15 100 01/12/24 22:00 102/62 01/12/24 22:00 102/62 01/12/24 22:00 102/62 01/12/24 21:57 72 16 99 01/12/24 21:51 71 19 99 01/12/24 21:45 112/75 01/12/24 21:45 112/75 01/12/24 21:30 160/114 H 01/12/24 21:30 160/114 H 01/12/24 21:27 78 22 01/12/24 21:24 80 12 133/86 99 01/12/24 20:51 88 17 170/117 H 91 01/12/24 20:39 102 H 01/12/24 20:33 112 H 24 175/118 H 88 L 01/12/24 20:10 98 01/12/24 20:06 37.4 C 90 12 147/102 H 98 01/12/24 19:42 93 H 20 92 01/12/24 19:36 96 O2 Del Method O2 Flow Rate FiO2 01/13/24 00:39 Oxymask 3 01/13/24 00:33 01/13/24 00:00 Oxymask 3 01/12/24 23:33 01/12/24 23:00 Oxymask 3 01/12/24 22:42 01/12/24 22:40 01/12/24 22:21 01/12/24 22:15 01/12/24 22:15 01/12/24 22:15 01/12/24 22:00 01/12/24 22:00 01/12/24 22:00 01/12/24 21:57 01/12/24 21:51 01/12/24 21:45 01/12/24 21:45 01/12/24 21:30 01/12/24 21:30 01/12/24 21:27 01/12/24 21:24 Oxyhood 3 01/12/24 20:51 High Flow Nasal Cannula 30 30 01/12/24 20:39 01/12/24 20:33 Room Air 01/12/24 20:10 Room Air 01/12/24 20:06 Room Air 01/12/24 19:42 Room Air 01/12/24 19:36 Room Air Diagnostic Findings Laboratory Results WBC 20.28 K/ul (4.8-10.8) H 01/12/24 19:35 RBC 4.99 M/uL (4.70-6.10) 01/12/24 19:35 Hgb 13.6 g/dl (14.0-18.0) L 01/12/24 19:35 POC Hgb 13.6 g/dl (14.0-18.0) L 01/12/24 21:01 Hct 42.1 % (42.0-52.0) 01/12/24 19:35 POC Hct 40 % (42-52) L 01/12/24 21:01 MCV 84.4 fL (80.0-100.0) 01/12/24 19:35 MCH 27.3 pg (25.0-34.0) 01/12/24 19:35 MCHC 32.3 g/dL (32.0-36.0) 01/12/24 19:35 RDW Std Deviation 45.6 fL (36.4-46.3) 01/12/24 19:35 RDW Coeff of Luis Angel 14.9 % (11.5-14.5) H 01/12/24 19:35 Plt Count 163 K/uL (130-400) 01/12/24 19:35 MPV 9.7 fL (9.4-12.4) 01/12/24 19:35 Immature Gran % (Auto) 0.5 % 01/12/24 19:35 Neut % (Auto) 88.1 % 01/12/24 19:35 Lymph % (Auto) 4.0 % 01/12/24 19:35 [place] % (Auto) 7.2 % 01/12/24 19:35 Eos % (Auto) 0.1 % 01/12/24 19:35 Baso % (Auto) 0.1 % 01/12/24 19:35 Neut # (Auto) 17.85 K/uL (1.40-6.50) H 01/12/24 19:35 Lymph # (Auto) 0.81 K/uL (1.20-3.40) L 01/12/24 19:35 [place] # (Auto) 1.47 K/uL (0.11-0.59) H 01/12/24 19:35 Eos # (Auto) 0.02 K/uL (0.00-0.50) 01/12/24 19:35 Baso # (Auto) 0.03 K/uL (0.00-0.20) 01/12/24 19:35 Immature Gran # (Auto) 0.10 K/uL (0.01-0.20) 01/12/24 19:35 PT 13.3 Seconds (9.0-12.0) H 01/12/24 19:35 INR 1.2 (0.9-1.1) H 01/12/24 19:35 Specimen Type Arterial 01/12/24 21: POC pH 7.41 (7.35-7.45) 01/12/24 21: POC pCO2 37 mmHg (35-46) 01/12/24 21: POC pO2 74 mmHg (80-95) L 01/12/24 21: POC HCO3 24 timo/L (19-24) 01/12/24 21: POC Total CO2 25 mmol/L (24-31) 01/12/24 21: POC Base Excess -1.0 timo/L (-9-1.8) 01/12/24 21: POC ABG O2 Sat 95.0 % (90-95) 01/12/24 21: VBG pH 7.40 (7.36-7.41) 01/12/24 20:42 VBG pCO2 46 mmHg (38-50) 01/12/24 20:42 VBG pO2 < 20 mmHg 01/12/24 20:42 VBG HCO3 29 mmol/L 01/12/24 20:42 VBG O2 Saturation < 60.0 % 01/12/24 20: VBG Base Excess 3.0 mEq/L 01/12/24 20:42 POC Sodium 141 mmol/L (135-144) 01/12/24 21:01 Sodium 141 mmol/L (136-145) 01/12/24 19:35 POC Potassium 3.1 mmol/L (3.3-5.0) L 01/12/24 21:01 Potassium 4.0 mmol/L (3.5-5.1) 01/12/24 19:35 POC Chloride 105 mmol/L (101-112) 01/12/24 19:40 Chloride 105 mmol/L (98-107) 01/12/24 19:35 Carbon Dioxide 29 mmol/L (21-32) 01/12/24 19:35 POC Total CO2 23 mmol/L (24-31) L 01/12/24 19:40 Anion Gap 7 (3-11) 01/12/24 19:35 POC Anion Gap 17.0 mmol/L (16-25) 01/12/24 19:40 POC BUN 36 mg/dl (7-18) H 01/12/24 19:40 BUN 39 mg/dl (6-23) H 01/12/24 19:35 Creatinine 1.18 mg/dl (0.6-1.4) 01/12/24 19:35 POC Creatinine 1.2 mg/dl (0.6-1.3) 01/12/24 19:40 Est Cr Clr Drug Dosing Not Reportable 01/12/24 19:35 eGFR 62.38 01/12/24 19:35 BUN/Creatinine Ratio 33.1 (10-20) H 01/12/24 19:35 Glucose 107 mg/dl (70-99(Fasting)) H 01/12/24 19:35 POC Glucose 105 mg/dl (70-99) H 01/12/24 19:37 POC Glucose (other) 105 mg/dl (70-99) H 01/12/24 19:40 Lactate 1.1 mmol/L (0.4-2.0) 01/12/24 20:56 Calcium 9.7 mg/dl (8.6-10.3) 01/12/24 19:35 POC Ioniz Calcium Mao 1.19 mmol/l (1.12-1.32) 01/12/24 19:40 Magnesium 1.9 mg/dl (1.7-2.4) 01/12/24 19:35 Total Bilirubin 0.9 mg/dl (0.2-1.0) 01/12/24 19:35 AST 16 U/L (13-39) 01/12/24 19:35 ALT 9 U/L (7-52) 01/12/24 19:35 Alkaline Phosphatase 47 U/L (34-104) 01/12/24 19:35 Troponin I High Sens 17.3 pg/ml (0-20) 01/12/24 19:35 Total Protein 7.1 gm/dl (6.0-8.3) 01/12/24 19:35 Albumin 4.1 gm/dl (3.4-5.0) 01/12/24 19:35 Globulin 3.0 gm/dl (2.5-4.0) 01/12/24 19:35 Albumin/Globulin Ratio 1.4 (0.9-2) 01/12/24 19:35 Procalcitonin 1.66 ng/ml (0-0.5) H 01/12/24 19:35 TSH 1.058 uIu/ml (0.300-4.500) 01/12/24 19:35 Urine Color Yellow 01/12/24 Unknown Urine Appearance Clear (Clear) 01/12/24 Unknown Urine pH 6.5 (4.5-7.5) 01/12/24 Unknown Ur Specific [place] 1.019 (1.000-1.030) 01/12/24 Unknown Urine Protein 1+ (Negative) H 01/12/24 Unknown Urine Glucose (UA) Negative (Negative) 01/12/24 Unknown Urine Ketones Trace (Negative) H 01/12/24 Unknown Urine Blood 2+ (Negative) H 01/12/24 Unknown Urine Nitrite Negative (Negative) 01/12/24 Unknown Urine Bilirubin Negative (Negative) 01/12/24 Unknown Urine Urobilinogen Negative (Negative) 01/12/24 Unknown Ur Leukocyte Esterase Negative (Negative) 01/12/24 Unknown Urine WBC (Auto) 0-5 /hpf (0-5) 01/12/24 Unknown Urine RBC (Auto) >20 /hpf (0-2) H 01/12/24 Unknown U Hyaline Cast (Auto) 0-2 /lpf (0-2) 01/12/24 Unknown U Epithel Cells (Auto) 0-2 /hpf (0-2) 01/12/24 Unknown Urine Bacteria (Auto) None Seen (None Seen) 01/12/24 Unknown Salicylates < 3.0 mg/dl (3.0-30) L 01/12/24 19:35 Urine Opiates Screen Pos (Neg) H 01/12/24 Unknown Ur Methadone, Qual Neg (Neg) 01/12/24 Unknown Urine Fentanyl Screen Neg (Neg) 01/12/24 Unknown Acetaminophen < 3 ug/ml (10-30) L 01/12/24 19:35 Urine Barbiturates Neg (Neg) 01/12/24 Unknown Ur Phencyclidine (PCP) Neg (Neg) 01/12/24 Unknown U Amphetamin/Meth Scrn Neg (Neg) 01/12/24 Unknown MDMA (Ecstasy) Screen Neg (Neg) 01/12/24 Unknown U Benzodiazepines Scrn Neg (Neg) 01/12/24 Unknown Ur Cocaine Metabolite Neg (Neg) 01/12/24 Unknown U Marijuana (THC) Screen Neg (Neg) 01/12/24 Unknown Ethyl Alcohol mg/dL < 10.0 mg/dl (<10.0) 01/12/24 22:10 Adenovirus (PCR) Not Detected (NotDetected) 01/12/24 20:00 B. pertussis DNA (PCR) Not Detected (NotDetected) 01/12/24 20:00 B.parapertussis DNA PCR Not Detected (NotDetected) 01/12/24 20:00 C. pneumoniae DNA (PCR) Not Detected (NotDetected) 01/12/24 20:00 Coronavirus OC43 (PCR) Not Detected (NotDetected) 01/12/24 20:00 Coronavirus HKU1 (PCR) Not Detected (NotDetected) 01/12/24 20:00 Coronavirus 229E (PCR) Not Detected (NotDetected) 01/12/24 20:00 SARS-CoV-2 (PCR) Not Detected (NotDetected) 01/12/24 20:00 Coronavirus NL63 (PCR) Not Detected (NotDetected) 01/12/24 20:00 Human Metapneumovir PCR Not Detected (NotDetected) 01/12/24 20:00 Influenza Type A (PCR) Not Detected (NotDetected) 01/12/24 20:00 Influenza Type B (PCR) Not Detected (NotDetected) 01/12/24 20:00 M. pneumoniae (PCR) Not Detected (NotDetected) 01/12/24 20:00 Parainfluenza 1 (PCR) Not Detected (NotDetected) 01/12/24 20:00 Parainfluenza 2 (PCR) Not Detected (NotDetected) 01/12/24 20:00 Parainfluenza 3 (PCR) Not Detected (NotDetected) 01/12/24 20:00 Parainfluenza 4 (PCR) Not Detected (NotDetected) 01/12/24 20:00 RSV (PCR) Not Detected (NotDetected) 01/12/24 20:00 Entero/Rhino (PCR) Not Detected (NotDetected) 01/12/24 20:00 Impressions Chest X-Ray 01/12/24 19:36 Exam(s): XR CXR 1 VIEW EXAM: XR Chest, 1 View CLINICAL HISTORY: Reason for exam: confusion. TECHNIQUE: Frontal view of the chest. COMPARISON: No relevant prior studies available. FINDINGS: Lungs: Unremarkable. No consolidation. Pleural space: Unremarkable. No pneumothorax. Heart: Mild cardiomegaly. Mediastinum: Unremarkable. Normal mediastinal contour. Bones/joints: The bones are osteopenic. No acute fracture. IMPRESSION: No acute pulmonary process identified Electronically signed by: Galdino Duarte MD 01/12/24 20:[address] 01/12/24 19:36 Exam(s): CT HEAD Without Contrast EXAM: CT Head Without Intravenous Contrast CLINICAL HISTORY: confusion. TECHNIQUE: Axial computed tomography images of the head/brain without intravenous contrast. CTDI is 62 mGy and DLP is 961 mGy-cm. Automated exposure control was utilized for the study. A dose lowering technique was utilized adhering to the principles of ALARA. COMPARISON: CT head without contrast dated 12/20/2021 FINDINGS: Limitations: There is motion artifact, which degrades image quality on multiple image slices. Brain: No definite intracranial hemorrhage; evaluation for subtle extra-axial pathology along the margins of the parenchyma is limited in regions of streak motion artifact. There are a few areas of decreased attenuation in the deep cerebral white matter consistent with mild small vessel ischemic/degenerative changes. The cerebral and cerebellar sulci are mildly prominent consistent with mild brain atrophy. No significant mass effect identified. Ventricles: No midline shift or significant effacement of the ventricles. Bones/joints: No definite skull fracture. Soft tissues: Unremarkable. Vasculature: Atherosclerotic disease. Sinuses: Unremarkable as visualized. No acute sinusitis. Mastoid air cells: Unremarkable as visualized. No mastoid effusion. IMPRESSION: Accounting for motion artifact, no definite acute intracranial process or significant alteration from the prior examination. Chronic underlying presumed age-related findings, not appreciably altered when compared to the prior examination. Electronically signed by: Jerome Abbott MD 01/12/24 21:14 PM Head CTA 01/12/24 20:43 Exam(s): CTA HEAD With Contrast IV Amt: 115 ml optiray 320 EXAM: CT Angiography Head With Intravenous Contrast CLINICAL HISTORY: altered mental status. TECHNIQUE: Axial computed tomographic angiography images of the head with intravenous contrast. CTDI is 26 mGy and DLP is 1186 mGy-cm. Automated exposure control was utilized for the study. A dose lowering technique was utilized adhering to the principles of ALARA. 3D and MIP reconstructed images were created and reviewed. CONTRAST: Patient received 115 ml optiray 320 of IV contrast COMPARISON: CT head 01/12/2024. FINDINGS: Right internal carotid artery: Mild calcified plaque at the cavernous internal carotid artery with intact distal runoff. No aneurysm. Right anterior cerebral artery: Unremarkable. No occlusion or significant stenosis. No aneurysm. Right middle cerebral artery: Unremarkable. No occlusion or significant stenosis. No aneurysm. Right posterior cerebral artery: Unremarkable. No occlusion or significant stenosis. No aneurysm. Right vertebral artery: Unremarkable as visualized. Left internal carotid artery: Mild calcified plaque at the cavernous internal carotid artery with intact distal runoff. No aneurysm. Left anterior cerebral artery: Unremarkable. No occlusion or significant stenosis. No aneurysm. Left middle cerebral artery: Unremarkable. No occlusion or significant stenosis. No aneurysm. Left posterior cerebral artery: Unremarkable. No occlusion or significant stenosis. No aneurysm. Left vertebral artery: Unremarkable as visualized. Basilar artery: Unremarkable. No occlusion or significant stenosis. No aneurysm. IMPRESSION: No large vessel occlusion. Electronically signed by: Delfino Monae M.D. 01/12/24 21:56 PM Neck CTA 01/12/24 20:43 Exam(s): CTA NECK With Contrast IV Amt: 115 ml optiray 320 EXAM: CT Angiography Neck With Intravenous Contrast CLINICAL HISTORY: altered mental status. TECHNIQUE: Routine carotid CT angiography protocol was performed with intravenous contrast. NASCET criteria using the distal ICAs for comparison were used for evaluation of stenoses. CTDI is 26 mGy and DLP is 1186 mGy-cm. Automated exposure control was utilized for the study. A dose lowering technique was utilized adhering to the principles of ALARA. 3D and MIP reconstructed images were created and reviewed. CONTRAST: Patient received 115 ml optiray 320 of IV contrast COMPARISON: None. FINDINGS: VASCULATURE: Right common carotid artery: Unremarkable. No occlusion or significant stenosis. No dissection. Right internal carotid artery: Mild calcified plaque at the carotid bulb without a hemodynamically significant stenosis. No dissection. Right external carotid artery: Unremarkable. No occlusion. Right vertebral artery: Unremarkable. No occlusion or significant stenosis. No dissection. Left common carotid artery: Unremarkable. No occlusion or significant stenosis. No dissection. Left internal carotid artery: Mild calcified plaque at the carotid bulb without a hemodynamically significant stenosis. No dissection. Left external carotid artery: Unremarkable. No occlusion. Left vertebral artery: Unremarkable. No occlusion or significant stenosis. No dissection. NECK: Bones/joints: Degenerative and postoperative changes of the spine. No acute fracture. Soft tissues: Unremarkable. Lung apices: Clear. CAROTID STENOSIS REFERENCE USING NASCET CRITERIA: % ICA stenosis = (1 - narrowest ICA diameter/diameter of distal cervical ICA) x 100. Mild - <50% stenosis. Moderate - 50-69% stenosis. Severe - 70-94% stenosis. Near occlusion - 95-99% stenosis. Occluded - 100% stenosis. IMPRESSION: Mild calcified plaque at the bilateral carotid bulbs without a hemodynamically significant stenosis. Electronically signed by: Delfino Monae M.D. 01/12/24 22:02 PM Abdomen/Pelvis CT 01/12/24 21:00 Exam(s): CT ABDOMEN + PELVIS With Contrast IV Amt: 115 ml optiray 320 EXAM: CT Abdomen and Pelvis With Intravenous Contrast CLINICAL HISTORY: altered mental status; back pain. TECHNIQUE: Axial computed tomography images of the abdomen and pelvis with intravenous contrast. CTDI is 26 mGy and DLP is 1186 mGy-cm. Automated exposure control was utilized for the study. A dose lowering technique was utilized adhering to the principles of ALARA. CONTRAST: Patient received 115 ml optiray 320 of IV contrast COMPARISON: No relevant prior studies available. FINDINGS: Limitations: There is respiratory artifact, which degrades image quality throughout the examination. Lung bases: Curvilinear changes at the lung bases are presumed atelectasis or scarring. ABDOMEN: Liver: Ovoid hypoattenuating structure in the posterior central liver adjacent to the intrahepatic IVC measuring 2 cm, stable in size. Gallbladder and bile ducts: Similar mild central intrahepatic biliary ectasia. The common bile duct does not appear to be significantly enlarged. Pancreas: Unremarkable. No mass. No ductal dilation. Spleen: Unremarkable. No splenomegaly. Adrenals: Unremarkable. No mass. Kidneys and ureters: Multiple renal cortical cysts noted. Evaluation is somewhat limited by respiratory artifact. No obvious solid or enhancing components. The largest cyst anteriorly on the left no measures 3.6 cm from 4 cm previously. Stomach and bowel: Unremarkable. No obstruction. No mucosal thickening. PELVIS: Appendix: No findings to suggest acute appendicitis. Bladder: A Ramirez catheter is noted in the bladder which is only mildly distended. Detailed evaluation is somewhat limited by artifact from the bilateral hip arthroplasties. Postsurgical changes suggested about the bladder suggesting prior prostatectomy. Reproductive: Unremarkable as visualized. ABDOMEN and PELVIS: Intraperitoneal space: Unremarkable. No free air. No significant fluid collection. 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 Severe multilevel disc spondylosis with scoliosis, convex left and extensive at least moderately severe degenerative changes. Similar degenerative ankylosis at L1-2 level. No definite acute osseous traumatic injury. Bilateral hip arthroplasties. Soft tissues: Unremarkable. 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 The inferior aspect of the aneurysm, best appreciated on coronal reformatted imaging is more convex in the aneurysm now measures 3.1 cm craniocaudal by 3.9 cm transverse (to include the aorta and aneurysm). Previously this measured 2.4 x 3.3 cm. There aneurysm also measures 3.2 cm AP from 2.4 cm previously. The aneurysm wall is slightly thickened. No definite periaortic fat stranding or hematoma. The abdominal aorta is heavily calcified, as are the iliac arteries. No definite occlusion. IVC filter incidentally noted in the infrarenal IVC. Lymph nodes: Unremarkable. No enlarged lymph nodes. Tubes, lines and devices: Spinal stimulator leads are noted entering the central canal at T10-11 level and extending slightly superior in the central canal. The spinal stimulator generator overlies the left superior gluteal region, stable. IMPRESSION: 1. 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 The inferior aspect of the aneurysm, best appreciated on coronal reformatted imaging is more convex in the aneurysm now measures 3.1 cm craniocaudal by 3.9 cm transverse (to include the aorta and aneurysm). Previously this measured 2.4 x 3.3 cm. There aneurysm also measures 3.2 cm AP from 2.4 cm previously. The aneurysm wall is slightly thickened. No definite periaortic fat stranding or hematoma. Recommend referral to vascular surgery for further workup and potential treatment. 2. 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 Severe multilevel disc spondylosis with scoliosis, convex left and extensive at least moderately severe degenerative changes. Similar degenerative ankylosis at L1-2 level. No definite acute osseous traumatic injury. Electronically signed by: Jerome Abbott MD 01/12/24 22:[address] 01/12/24 21:00 Exam(s): CT CHEST With Contrast IV Amt: 115 ml optiray 320 EXAM: CT Chest With Intravenous Contrast CLINICAL HISTORY: altered mental status. TECHNIQUE: Axial computed tomography images of the chest with intravenous contrast. CTDI is 26 mGy and DLP is 1186 mGy-cm. Automated exposure control was utilized for the study. A dose lowering technique was utilized adhering to the principles of ALARA. CONTRAST: Patient received 115 ml optiray 320 of IV contrast COMPARISON: Chest x-ray 01/12/2024, CT chest 05/15/2015. FINDINGS: Lungs: Scattered bilateral linear parenchymal densities suggesting atelectasis, greatest in the right upper and lower lobe. No dense focal lobar consolidation. Pleural space: Unremarkable. No pneumothorax. No pleural effusion. Heart: Unremarkable. No cardiomegaly. No significant pericardial effusion. Coronary artery calcifications. Bones/joints: S-shaped scoliosis with diffuse degenerative changes of the thoracic spine. No acute fracture. There is thoracic intraspinal stimulator leads. Soft tissues: Unremarkable. Vasculature: Atherosclerotic vascular calcifications. No thoracic aortic aneurysm or dissection. Lymph nodes: Unremarkable. No enlarged lymph nodes. Abdomen: Unremarkable gallbladder. Intrahepatic biliary ductal dilatation. Multiple probable renal and liver cysts. IMPRESSION: Scattered bilateral linear parenchymal densities suggesting atelectasis, greatest in the right upper and lower lobe. No dense focal lobar consolidation. Senescent changes. Electronically signed by: Delfino Monae M.D. 01/12/24 22:15 PM ECG Additional Comments: ECG. Atrial fibrillation with slow ventricular response rate of 57. Left axis deviation. No significant change was found. QTc 377. Code Status & VTE Plan VTE Prophylaxis Plan VTE Prophylaxis will be ordered: Yes
[2024-01-13 01:44] LABS: Base Excess VBG -2.2 mEq/L; HCO3 VBG 24 mmol/L; Oxygen Saturation VBG 86.4 %; PCO2 VBG 44 mmHg (38-50); PO2 VBG 54 mmHg; pH VBG 7.34 (7.36-7.41)
[2024-01-13] MEDS ORDERED: POLYETHYLENE (MIRALAX) 17 GM PACK PO PRN (02:24)
[2024-01-13] MEDS ORDERED: HYDROCORTISONE SOD SUCCINATE 100 MG/2 ML VIAL IV STA (02:24)
[2024-01-13] MEDS ORDERED: NITROGLYCERIN SL 0.4 MG/TAB TAB SL PRN (02:24)
[2024-01-13] MEDS: SODIUM CHLORIDE 0.9% 1,000 ML IV SCH (02:50)
[2024-01-13] MEDS: HYDROCORTISONE SOD 50 MG in SYRINGE 0 ML IV SCH (02:51)
[2024-01-13 07:06] LABS: Basophils # (auto) 0.02 K/uL (0.00-0.20); Basophils % (auto) 0.1 %; Eosinophils # (auto) 0.02 K/uL (0.00-0.50); Eosinophils % (auto) 0.1 %; Hematocrit (blood only) 38.7 % (42.0-52.0); Hemoglobin 12.3 g/dl (14.0-18.0); Immature Granulocytes # (auto) 0.06 K/uL (0.01-0.20); Immature Granulocytes % (auto) 0.4 %; Lymphocytes # (auto) 0.61 K/uL (1.20-3.40); Lymphocytes % (auto) 4.1 %; Mean Corpuscular Hemoglobin 26.9 pg (25.0-34.0); Mean Corpuscular Hgb Conc 31.8 g/dL (32.0-36.0); Mean Corpuscular Volume 84.5 fL (80.0-100.0); Mean Platelet Volume 9.9 fL (9.4-12.4); Monocytes # (auto) 0.82 K/uL (0.11-0.59); Monocytes % (auto) 5.5 %; Neutrophils # (auto) 13.36 K/uL (1.40-6.50); Neutrophils % (auto) 89.8 %; Platelet Count 140 K/uL (130-400); RDW Standard Deviation 45.3 fL (36.4-46.3); Red Blood Count 4.58 M/uL (4.70-6.10); White Blood Count 14.89 K/ul (4.8-10.8)
[2024-01-13 07:21] LABS: BUN Creatinine Ratio 38.3 (10-20); Calcium 8.2 mg/dl (8.6-10.3); Creatinine Clr Calc Pharmacy 63.3 ml/min; Magnesium 1.8 mg/dl (1.7-2.4); Potassium 3.6 mmol/L (3.5-5.1)
[2024-01-13] MEDS: VANCOMYCIN 1,250mg in D5W 250mL (Use w/ NSS Shortage) IV SCH (07:45)
[2024-01-13] MEDS: CEFEPIME 2000MG 2,000 MG/20 ML SYR IV SCH (07:45)
[2024-01-13] MEDS: AZITHROMYCIN 250 MG TAB PO ONE (08:25)
[2024-01-13] MEDS: lisinopril 5 MG TAB PO SCH (08:25)
[2024-01-13] MEDS: METOPROLOL SUCC 50MG EXT REL TAB PO SCH (08:25)
[2024-01-13] MEDS: FLUTICASONE PROPIONATE NA SPR 16 GM BTL SCH (08:26)
[2024-01-13] MEDS: DORZOLAMIDE/TIMOLOL 22.3/6.8MG/ML 10 ML BTL OPB SCH (08:26)
[2024-01-13] MEDS: BRIMONIDINE TARTRATE 0.2% 5ML OPL SCH (08:27)
[2024-01-13] MEDS ORDERED: HYDROCORTISONE SOD SUCCINATE 100 MG/2 ML VIAL IV SCH (09:00)
--- NOTE | 2024-01-13 10:26 | Pharmacy Report ---
Pharmacy PK ABX Note - Date of Service January 13, 2024 - Assessment and Plan Assessment 78 year old M receiving vancomycin and cefepime for treatment of LLE cellulitis. Blood cultures pending. Renal function back to baseline. Day #2 of antimicrobial therapy. Plan Vancomycin * Loading dose: 1250 mg IV x 1 * Maintenance dose: 1250 mg IV every 24 hours * Regimen is predicted to achieve target AUC/ANGELITA of 400-600 mg/L.hr * Will obtain a level if therapy continued beyond 48h, or sooner if clinically indicated. Pharmacy will continue to follow and will adjust dose/frequency as necessary. Thank you. Pharmacy has transitioned to AUC monitoring for vancomycin. AUC/ANGELITA is the preferred PK/PD target and is associated with decreased risk of nephrotoxicity compared to traditional trough targets.
[2024-01-13] MEDS: MULTIVITAMIN TAB PO SCH (11:18)
[2024-01-13] MEDS: DOCUSATE SODIUM 100 MG CAP PO SCH (11:19)
--- NOTE | 2024-01-13 14:19 | Infectious Disease Consult ---
Date of Service January 13, 2024 Telehealth Information I performed this visit using a real-time telehealth connection between my location and the patients location ([facility]). After connecting through interactive tele-video, patient was identified by name and date of and/or wristband check.Patient (or authorized healthcare volunteer patient representative) was informed that this was a telemedicine visit and it was being conducted confidentially over secure lines. My office door was closed and no one else was present in the room with me.Patient (or authorized healthcare volunteer patient representative) provided consent to proceed with the visit, expressed an understanding of privacy and security of the telemedicine visit, and gave permission to have a hospital volunteer patient representative in the room in order to assist with the visit and to conduct portions of the visit, as needed. I informed the patient (or authorized healthcare volunteer patient representative) that I reviewed their record and presented the opportunity for them to ask any questions regarding the visit today. The patient agreed to participate. Assessment & Plan (1) AMS (altered mental status): (2) Leukocytosis: (3) Spinal cord stimulator status: Plan I agree with IV vancomycin and IV cefepime for now. I would recommend performing a thorough examination of the lumbar spine area at the site of the stimulator. I would also consider obtaining MRI of the lumbar spine if his stimulator is compatible. If the MRI was negative for any infectious process, I would stop all antibiotics and monitor off of antibiotics. History of Present Illness History of Present Illness Mr. Romero is a 78-year-old man with medical history of HTN, dyslipidemia, peripheral vascular disease, infrarenal abdominal aortic aneurysm, persistent A- fib, prostate cancer, polymyalgia rheumatica with lumbar radiculopathy status post neurostimulator in the back, history of PE and monoclonal paraproteinemia who was admitted to [facility] on 01/12 because of acute changes in his mental status as noticed by his and generalized weakness and difficulty ambulating. Presentation, he was afebrile and the rest of the vitals were within normal limits. However, shortly after admission he started requiring more oxygen up to 4 L via oxymask. Initial workup showed leukocytosis of 20,000 (ANC 17,800), his urine showed no pyuria, and respiratory viral panel was negative. CT chest showed scattered bilateral linear parenchymal densities suggesting atelectatic changes. Head and neck CT imaging was not impressive for any acute cerebrovascular disease. CT abdomen and pelvis showed the saccular aneurysm involving the infrarenal abdominal aorta which was a little bit larger than before. It further demonstrated significant degenerative changes in the lumbar spine with postlaminectomy defects L3 through the sacrum. ID team was consulted for further recommendations and to help guide antibiotic treatment. Allergies Allergy/AdvReac Type Severity Reaction Status Date / Time adalimumab Allergy Severe Unknown Verified 01/04/24 14:19 mirabegron Allergy Intermediate Unknown Verified 01/04/24 14:19 methotrexate Allergy Unknown Blood Verified 01/04/24 14:19 platelets drop. naproxen Allergy Unknown Unknown Verified 01/04/24 14:19 guaifenesin [From Mucinex] AdvReac Unknown "ENHANCES Verified 01/04/24 14:19 ALL OTHER MEDS HE IS ON" DELUSIONAL OTC COLD MEDICATIONS AdvReac Unknown "ENHANCES Uncoded 01/04/24 14:19 ALL OTHER MEDS HE IS ON" DELUSIONAL Home Medications Medication Instructions Recorded Confirmed Type dorzolamide 22.3 mg-timolol 6.8 1 drp OPB BID #10 mL 10/22/21 01/12/24 Rx mg/mL eye drops travoprost 0.004 % eye drops 1 drp OPB HS #5 mL 10/22/21 01/12/24 Rx (Travatan Z) diclofenac sodium 1 % topical gel 2 g topical UD PRN THUMB ARTHRITIS 03/17/22 01/12/24 History famotidine 20 mg tablet 20 mg PO HS 03/17/22 01/12/24 History oxycodone 10 mg tablet 10 mg PO QID pain 03/17/22 01/12/24 History polyethylene glycol 3350 17 gram 17 g PO UD PRN Constipation 03/17/22 01/12/24 History oral powder packet (Miralax) rivaroxaban 20 mg tablet (Xarelto) 20 mg PO QDD 03/17/22 01/12/24 History baclofen 10 mg tablet See Rx Instructions .Route .COMPLEX 01/18/23 01/12/24 History brimonidine 0.2 % eye drops 1 drp OPL BID 01/18/23 01/12/24 History docusate sodium 100 mg capsule 100 mg PO QDL Constipation 01/18/23 01/12/24 History fluticasone propionate 50 2 spray intranasal QAM 01/18/23 01/12/24 History mcg/actuation nasal spray,suspension ipratropium bromide 21 mcg (0.03 2 spray intranasal HS 01/18/23 01/12/24 History %) nasal spray alfuzosin 10 mg tablet,extended 10 mg PO QDD 03/04/23 01/12/24 History release 24 hr gabapentin 100 mg capsule 100 mg PO QAM 03/04/23 01/12/24 History gabapentin 100 mg capsule 300 mg PO HS 03/04/23 01/12/24 History multivitamin 1 tab PO QDL 03/04/23 01/12/24 History abiraterone 250 mg tablet (Zytiga) 1,000 mg PO DAILYBB 01/12/24 01/12/24 History acetaminophen 500 mg tablet 500 mg PO TID 01/12/24 01/12/24 History furosemide 20 mg tablet 20 mg PO QAM 01/12/24 01/12/24 History lisinopril 5 mg tablet 5 mg PO QAM 01/12/24 01/12/24 History metoprolol succinate 25 mg 50 mg PO AMHS 01/12/24 01/12/24 History tablet,extended release 24 hr (Toprol XL) prednisone 5 mg tablet 5 mg PO DAILYBB 01/12/24 01/12/24 History Patient History Medical History Lower urinary tract symptoms Presence of neurostimulator BACK/MEDTRONIC History of kidney infection FALL OF 2021/RESOLVED HTN (hypertension) Left foot drop Neuropathy History of DVT (deep vein thrombosis) HX LEG FX/IVC FILTER Sleepiness ONGOING ...NO CHANGE IN BASELINE History of COVID-09 DEC 2021 History of recent hospitalization SEP 2021 - SEPSIS & AFIB/HX CARDIOVERSION NOV 2021 FOR FALL/FX LEFT LEG (NO SX INTERVENTION) ...[facility] ..CONTINUES IN HOME PT /OT Acid reflux Prostate cancer Malignant neoplasm of urinary bladder hx History of bladder cancer s/p TURBT 06/2016 History of ITP 2013, tx with prednisone H/O prostate cancer S/P PROSTATECTOMY 2006 Glaucoma Osteoarthritis Chronic back pain LEFT LEG Overactive bladder NOT VERIFIED DURING PAT PHONE CALL Pulmonary embolism FROM DVT [address] 2014 Deep vein thrombosis S/P LEG INJURY 2014 On anticoagulant therapy Transient ischemic attack (TIA) HX, COUPLE YEARS AGO, UNCLEAR IF ACTUAL TIA. PT ON XARELTO NOW FOR DVT/PE HX. MULTIPLE SUSPECTED OVER LAST 8 YRS/MOST RECENT WITHIN LAST 6 MON. HAS HAD BRAIN SCANS (NEGATIVE). Sleep apnea CPAP (no use for past 3 yrs/gives pt nightmares) Abdominal aortic aneurysm Surgical History History of right cataract surgery History of endoscopy History of colonoscopy History of cardioversion History of back surgery SEVERAL - HARD TO LIE FLAT History of bladder surgery TURBT 06/2016 History of total hip arthroplasty R/L H/O shoulder surgery RIGHT Hx of cervical spine surgery ANTERIOR - LIMITED ROM History of prostatectomy S/P PROSTATE CANCER 2005- s/p radiation and prostatectomy. Recurrent disease found in lymph node 2014. Family History Mother Alzheimer disease Father Aortic aneurysm Other Family history non-contributory Social History Smoking Status: Current every day smoker Tobacco Type: Cigars Cigarettes Per Day: 3-4 daily; Second Hand Exposure: No; Do You Dip or Chew Tobacco: No; Hx Alcohol Use: Yes Alcohol type: beer, wine and hard liquor Hx Substance Use: No Preferred Language: Maldivian Communication Ability: Impaired Veneer Redrier Required: No Beliefs That Will Affect Care: None marital status: Current Living Situation: Spouse Other Information That Helps Us Care for You: No Feels Safe at Home: Yes Safety Concerns: Feels Safe At This Time Assistive Devices: Walker and Wheelchair Review of Systems Negative except for what was mentioned in H&P. Physical Exam Could not be obtained as the visit was performed via TeleMed. Results & Data Vital Signs (Past 12 Hours) Vital Signs Temp Pulse Resp BP Pulse Ox O2 Del Method O2 Flow Rate 01/13/24 10:53 37.5 C 96 H 17 161/102 H 94 Room Air 01/13/24 09:00 Room Air 01/13/24 07:45 37.5 C 87 18 139/95 99 Oxymask 4 01/13/24 04:03 37.3 C 60 19 128/79 100 Oxymask 4 01/13/24 03:04 Oxymask 4 Laboratory Results Microbiology: 01/11: 2 sets of blood culture negative to date
--- NOTE | 2024-01-13 14:39 | Communication Note ---
Date of Service: January 13, 2024 Evaluated patient,reports feeling marginally improved Denies any back pain at this time Reports spinal stimulator compatible AOx3, moving all extremities, no focal neuro deficits, BLE dusky discoloration, small ulcer right lateral malleolus, small superficial lesions on LLE Continue vanc/cefepime Repeat labs in am MRI lumbar spine
[2024-01-13] MEDS: RIVAROXABAN 20 MG TAB PO SCH (15:48)
[2024-01-13] MEDS: TAMSULOSIN HCL 0.4 MG CAP PO SCH (15:48)
[2024-01-13] MEDS: BACLOFEN 10 MG TAB PO SCH (15:48)
--- NOTE | 2024-01-13 15:48 | Electrocardiogram Report ---
Test Reason : Blood Pressure : */* mmHG Vent. Rate : 78 BPM Atrial Rate : * BPM P-R Int : * ms QRS Dur : 86 ms QT Int : 362 ms P-R-T Axes : * -46 10 degrees QTcB Int : 412 ms Atrial fibrillation Left axis deviation Septal infarct (cited on or before 17-Oct-2021) Nonspecific T wave abnormality Abnormal ECG When compared with ECG of 12-Jan-2024 19:28, No significant change Confirmed by Johnny Segal ([id number]) on 01/13/2024 3:47:55 PM Referred By: REFERRED SELF Confirmed By: Johnny Segal
[2024-01-13] MEDS: ACETAMINOPHEN 500 MG TAB PO PRN (18:06)
[2024-01-13] MEDS: FAMOTIDINE 20 MG TAB PO SCH (20:04)
[2024-01-13] MEDS: BACLOFEN 20 MG TAB PO SCH (20:04)
[2024-01-13] MEDS: HYDROCORTISONE SOD 25 MG in SYRINGE 0 ML IV SCH (20:04)
[2024-01-13] MEDS: GABAPENTIN 300 MG CAP PO SCH (20:04)
[2024-01-13] MEDS: IPRATROPIUM BROMIDE NASAL SPRAY 0.06% 15ML NAE SCH (20:04)
[2024-01-13] MEDS: TRAVOPROST Z 0.004% OPH SOLN 2.5 ML BTL OPB SCH (20:05)
[2024-01-13] MEDS: GADOBUTROL 65ML VIAL IV ONE (20:55)
--- OUTSIDE RECORDS SUMMARY | 2024-01-13 23:40 | External Medical Summary | Summary of Care ---
Author Name Unknown Organization [facility] Address [address] [address] Phone [phone] Care Team Providers Care Service Mechanic Name Role Phone Clifford Gandhi DO Primary Care Provider [phone] Reason for Visit * Reason Comments Follow Up Encounter Details Date Type Department Care Team (Late st Contact Info) Description 01/10/2024 1:30 PM EST Office Visit Cardiology, [facility] [address] [place] [id number] Laney Flores PA-C [address] [id number] Persistent atrial fibrillation (HCC)*; Essential (primary) hypertension; Abdominal aortic aneurysm (AAA) without rupture, unspecified part (HCC) Allergies Active Allergy Reactions Criticality Noted Date Comments Adalimumab Muscle pain Medium 06/18/2013 (Humira) "knocked blood platelet way down" Neomycin-Polymyxin B Gu 01/17/2013 Destroys bacteria in GI system, AVOID-Pt stated he got C Diff after antibiotic therapy after having a hip replacement. Methotrexate 04/06/2019 Decrease platelet count Dextromethorphan-Guaifenes in High 12/09/2021 Causes night terrors Trazodone 01/11/2022 Hallucinations documented as of this encounter (statuses as of 01/10/2024) Medications Docusate Sodium 100 MG Oral Capsule (Colace) Take 1 Capsule by mouth in the morning. Active Acetaminophen 325 MG Oral Tablet (Tylenol) Take 2 Tablets by mouth every 4 hours as needed. Active Polyethylene Glycol 3350 17 GM Oral Packet Take 1 Packet by mouth daily as needed for Constipation. Active Diclofenac Sodium 1 % External Gel (Voltaren) Apply topically to affected area as needed . Active Fluticasone Propionate 50 MCG/ACT Nasal SuspensionIndicat ions:Otalgia, left Administer 2 Sprays into each nostril in the morning. 18.2 mL 3 022 Active Multivitamin Adult Oral Tablet Chewable Take by mouth. Activ e Xarelto 20 MG Oral Tablet TAKE ONE TABLET BY MOUTH EVERY EVENING 100 Tablet 3 12/24/19 24 8:30 AM EDT Active Famotidine 20 MG Oral Tablet (Pepcid)Indicatio ns:Gastro-esophag eal reflux disease without esophagitis TAKE ONE TABLET BY MOUTH AT BEDTIME 100 Tablet 3 10/25/19 24 5:47 PM EDT 024 2024 Active Gabapentin 300 MG Oral Capsule (Neurontin)Indica tions:Degeneratio n of lumbar intervertebral disc,Failed back syndrome TAKE ONE CAPSULE BY MOUTH AT BEDTIME 100 Capsule 3 10/25/19 24 5:47 PM EDT 024 2024 Active Alfuzosin HCl ER 10 MG Oral Tablet Extended Release 24 Hour (Uroxatral)Indica tions:Essential (primary) hypertension TAKE ONE TABLET BY MOUTH IN THE MORNING 100 Tablet 3 11/04/19 24 5:48 PM EDT 024 2024 Active Travoprost (TIP Free) 0.004 % Ophthalmic Solution (Travatan Z) INSTILL ONE DROP IN EACH EYE AT BEDTIME 10 mL 3 10/19/19 24 9:52 AM EDT 024 Active Ipratropium Emeigh 0.03 % Nasal Solution (Atrovent) Administer 2 Sprays into each nostril in the morning and 2 Sprays before bedtime. 30 mL 3 024 Active Gabapentin 100 MG Oral Capsule (Neurontin)Indica tions:Spinal stenosis of lumbar region with neurogenic claudication,Fail ed back syndrome Take 1 Capsule by mouth 2 times a day. Take in morning and at 3 pm 200 Capsule 3 11/24/19 24 5:59 PM EDT 024 Active Additional Information Patient taking differently:100 mg OralDaily(AM), (No instructions reported), Reported on 01/10/2024 Abiraterone Acetate 250 MG Oral Tablet (Zytiga)Indicatio ns:Prostate cancer (HCC) Take 4 tablets by mouth in the morning on an empty stomach 1 hour before or 2 hours after food. 120 Tablet 5 12/09/19 24 1:27 PM EDT Active Metoprolol Succinate ER 50 MG Oral Tablet Extended Release 24 Hour (toPROL XL)Indications:Pe rsistent atrial fibrillation (HCC) Take 1 Tablet by mouth in the morning and 1 Tablet before bedtime. 200 Tablet 3 12/28/19 24 4:29 PM EST Active Brimonidine Tartrate 0.2 % Ophthalmic Solution (Alphagan) Place 1 drop into left eye twice a day 10 mL 3 12/28/19 24 11:22 AM EST Active Dorzolamide HCl-Timolol Mal 2-0.5 % Ophthalmic Solution (Cosopt Ocumeter Plus) INSTILL ONE DROP IN EACH EYE TWO TIMES A DAY 20 mL 3 11/09/19 24 7:46 AM EDT 024 2024 Active Furosemide 20 MG Oral Tablet (Lasix)Indication s:Edema, unspecified type Take 1 Tablet by mouth in the morning. 100 Tablet 3 11/16/19 24 10:45 AM EDT 024 Active oxyCODONE HCl 10 MG Oral Tablet (Roxicodone)Indic ations:Failed back syndrome,Spinal stenosis of lumbar region with neurogenic claudication Take 1 Tablet by mouth every 6 hours. 120 Tablet Active Baclofen 10 MG Oral Tablet (Lioresal) TAKE TWO TABLETS BY MOUTH EVERY MORNING, TWO TABLETS AT NOON, AND TWO TABLETS BEFORE BEDTIME 600 Tablet 1 01/05/20 24 4:27 PM EST 024 2024 Active predniSONE 5 MG Oral Tablet (Deltasone)Indica tions:Prostate cancer (HCC) TAKE ONE TABLET BY MOUTH IN THE MORNING 90 Tablet 1 01/06/20 24 12:21 PM EST 024 2024 Active Lisinopril 5 MG Oral Tablet (Prinivil) Take 1 Tablet by mouth in the morning. 100 Tablet 3 Active Lisinopril 10 MG Oral Tablet (Prinivil) Take 1 Tablet by mouth in the morning. 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 Persistent atrial fibrillation 05/26/2022 Left ear pain 05/18/2022 Assessment & Plan (05/18/2022 11:34 AM EDT): More pain superior to L ear with ear congestion -CT head/facial bones with IV contrast Infrarenal abdominal aortic aneurysm (AAA) witho ut rupture 03/09/2022 Drug-induced constipation 01/11/2022 Mixed sensory-motor polyneuropathy 12/08/2021 Primary insomnia 11/05/2021 Tremor of right hand 10/05/2021 Primary open-angle glaucoma, bilateral, moderate stage 08/21/2021 Gastroparesis 08/06/2021 History of bladder cancer 07/22/2021 Monoclonal paraproteinemia 07/22/2021 History of pulmonary embolism 07/22/2021 Presence of IVC filter 07/22/2021 Polymyalgia rheumatica 07/22/2021 Essential (primary) hypertension 07/22/2021 Assessment & Plan (05/18/2022 11:29 AM EDT): BP on the low side, but stable and asymptomatic -continue lisinopril 10 mg, Toprol XL 50 mg Age-related osteoporosis wit hout current pathological fracture 07/22/2021 Other specified peripheral vascular diseases 02/2021 Gastro-esophageal reflux disease without esophag itis 07/22/2021 Assessment & Plan (05/18/2022 11:31 AM EDT): Symptoms controlled on famotidine Drop foot gait 12/13/2016 Lumbar radiculopathy 03/17/2016 Degeneration of lumbar intervertebral disc 03/17 Lumbar canal stenosis 03/17/2016 Failed back syndrome 03/17/2016 Memory difficulties 01/09/2015 Spinal cord stimulator status 01/09/2015 Anemia 06/18/2013 Assessment & Plan (05/18/2022 11:30 AM EDT): Last hemoglobin is stable at 12.4 on 01/27/2023 Prostate cancer 06/18/2013 Assessment & Plan (05/18/2022 11:33 AM EDT): Following with Oncology and Urology -on Lupron and Zytiga documented as of this encounter (statuses as of 01/10/2024) Resolved Problems Problem Noted Date Diagnosed Date Resolved Date Malignant neoplasm of urinary bladder 02/23/2023 02/23/2023 Prediabetes 08/30/2022 03/03/2023 Overview: Per Prediabetes protocol Paroxysmal atrial fibrillation 10/22/2021 07/06/2022 Assessment & Plan (05/18/2022 11:29 AM EDT): Occasionally irregular. Rate controlled. -continue Toprol-XL and Xarelto. 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 Next imaging January 2023. 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, site unspecified 06/26/2014 022 Thrombocytopenia 06/18/2013 03/09/2022 documented as of this encounter (statuses as of 01/10/2024) Immunizations Name Administration Dates Next Due COVID-19 mRNA, LNP-s, No Pre serve, 2-Dose Series (Moderna) 12/20/2020,04/18/2020,03/20/2020 COVID-19, MRNA-LNP, PF, 30 M CG/0.3 mL, 12 YRS AND ABOVE, IM (PFIZER-Comirnaty) 11/08/2023,07/12/2023,12/23/2022 COVID-19, mRNA, LNP-s, PF, B ooster, 100mcg/0.5mg (Moderna) 06/24/2021 Covid-19, Mrna, Lnp-s, Pf, B ivalent, 30 Mcg, IM, 12 yrs and above (Pfizer) 03/09/2022 DTaP Dipth/Tet/Acell Pertussis (Infanrix), Peds 11/22/2004 PPD 05/27/2009 Pneumococcal Conjugate Vacc, 13 Valent (Prevnar) 12/23/2014 Pneumococcal Conjugate Vacci ne, 20-valent (Txrahvs20) 11/08/2023 Pneumococcal Polysaccharide PPV23 (Pneumovax) 08/13/2013 Season Influenza, Quad, PF, Adjuvanted, 65+ Yrs, IM (FLUAD) 11/17/2019 Seasonal Influenza Virus Vac cine, Unspecified Formulation 11/27/2014 Seasonal Influenza, High Dos e, Trivalent, PF, IM (Fluzone HD) 11/08/2023 Seasonal Influenza, Quadriva lent Hd (Fluzone Hd) 11/19/2022,11/09/2021 Seasonal Influenza, Trivalen t, Adjuvanted, 65+ YRS, PF, (Fluad) 12/04/2018 TDAP (age 10 and older)(Boostrix) 01/30/2019 TDAP, Age 7 and older, IM (Adacel) 11/19/2008 Zoster Vaccine Recombinant (Shingrix) 01/18/2020 ,11/17/2019 documented as of this encounter Social History Tobacco Use Types Packs/Day Years Used Date Smoking Tobacco: Every Day Cigars Passive Smoke Exposure: Past Smokeless Tobacco: Never Comments:02/23/23 3-4 small ci gars a day, declined pamphlet Alcohol Use Standard Drinks/Week Comments Yes 0 (1 standard drink = 0.6 oz pur e alcohol) glass of wine every week PHQ-2 Answer Date Recorded PHQ Adult Total Score 0 02/23/2023 Hunger Vital Sign Answer Date Recorded Within the past 12 months, y ou worried that your food would run out before you got the money to buy more. Never true 02/23/19 24 Within the past 12 months, t he food you bought just didn't last and you didn't have money to get more. Never true 02/23/2023 Childcare Answer Date Recorded Do you feel overwhelmed with taking care of a child, family member or friend? No 02/23/2023 Does your family need help f inding childcare? (Household - for ages 0-17 years) Not on file 02/23/2023 Clothing Answer Date Recorded Have you been unable to get clothing when it was really needed? No 02/23/2023 Is your family able to get c lothes or diapers when needed? (Household - for ages 0-17 years) Not on file 02/23/2023 Personal Safety Answer Date Recorded Do you feel unsafe or have concerns for your saf ety? No 02/23/2023 Do you have concerns for you r family's safety? (Household - for ages 0-17 years) Not on file 02/23/2023 Utilities Answer Date Recorded Do you have trouble paying y our heating, water, or electric bill? No 02/23/2023 Is your family able to pay t he heat, water, or electric bill? (Household - for ages 0-17 years) Not on file 02/23/2023 Does your family have access to good internet? (Household - for ages 0-17 years) Not on file 02/23/2023 Employment Status Answer Date Recorded Are you unemployed or without regular income? No 02/23/2023 Does the household have a re gular source of income? (Household - for ages 0-17 years) Not on file 02/23/2023 Social Connections Answer Date Recorded How often do you feel lonely or isolated from th ose around you? Never 02/23/2023 Financial Resource Strain Answer Date R ecorded Do you have any trouble payi ng for your medications, or do you think you might in the future? No 02/23/2023 Does your family have troubl e paying for medicine? (Household - for ages 0-17 years) Not on file 02/23/2023 Transportation Needs Answer Date Record ed READ ONLY Do you have troubl e getting a ride to medical visits or work? Never True 02/23/2023 Does your family have a hard time getting a ride to doctors visits? (Household - for ages 0-17 years) Not on file 02/23/2023 Has lack of transportation k ept you from medical appointments, meetings, work, or from getting things needed for daily living? Check all that apply. (Adult - for ages 18 years and over) Not on file 02/23/2023 Do you (or your family) have trouble finding or paying for a ride (transportation)? (Household - for ages 0-17 years) Not on file 02/23/2023 Housing Stability Answer Date Recorded Do you currently live in a s helter or have no steady place to sleep at night? No 02/23/2023 READ ONLY Do you think you a re at risk of becoming homeless? No 02/23/2023 Does your family worry about paying for your home or becoming homeless? (Household - for ages 0-17 years) Not on file 0 02/23/2023 Are you homeless or worried that you might be in the future? (Adult - for ages 18 years and over) Not on file Are you (or your family) martín eless or worried that you might be in the future? (Household - for ages 0-17 years) Not on file Food Insecurity Answer Date Recorded Do you need food for this week? No 02/23/2023 Are you able to get enough f ood for your family? (Household - for ages 0-17 years) Not on file 02/23/2023 Does your family need food t his week? (Household - for ages 0-17 years) Not on file 02/23/2023 Do you always have enough fo od for your family? 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 Answer Date of Assessment Author No 01/07/2015 3:00 PM EST Fabio Albaradoaret A, OSWALDO * Are you blind or do you have serious difficulty seeing, even when wearing glasses? Answer Date of Assessment Author Yes 01/07/2015 3:00 PM EST Fabio Albarado rgaret A, OSWALDO * Do you have serious difficulty walking or climbing stairs? (5 years old or older) Answer Date of Assessment Author Yes 01/07/2015 3:00 PM EST Fabio Albaradoaret A, OSWALDO * Do you have difficulty dressing or bathing? (5 years old or older) Answer Date of Assessment Author No 01/07/2015 3:00 PM EST Fabio Albarado rgaret A, OSWALDO * Because of a physical, mental, or emotional condition, do you have difficulty doing errands alone such as visiting a doctors office or shopping? (15 years old or older) Answer Date of Assessment Author No 01/07/2015 3:00 PM EST Fabio Albarado rgaret A, OSWALDO documented as of this encounter Mental Status * Because of a physical, mental, or emotional condition, do you have serious difficulty concentrating, remembering, or making decisions? (5 years old or older) Answer Entry Date Author Yes 01/07/2015 3:00 PM EST Fabio Albarado rgaret A, OSWALDO documented in this encounter Progress Notes * Laney Flores PA-C - 01/10/2024 1:34 PM EST 01/10/2024 Cardiology F/U: Patient is a 78-year-old male here today for routine cardiology follow-up. Last clinic evaluation approximately 6 months ago with the undersigned. Former patient of Dr. Hammond. History includes: AAA - followed by vascular surgery. Last visit Feb 2023 DVT status post IVC filter placement, on chronic Xarelto anticoagulation. Prostate cancer. Hypertension Paroxysmal now persistent Afib in S/P DCCV September 2021. Recurrent afib noted at PCP visit and EKG Feb 2022, asymptomatic. On Xarelto Chronic tobacco abuse History of Present Illness The patient, with a history of persistent atrial fibrillation managed with metoprolol and Xarelto, hypertension, and chronic tobacco use, reports feeling well since the last visit in June. He denies any recent hospitalizations, surgeries, or illnesses. He describes a brief, transient 'flutter' sensation in the chest occurring in the mornings after taking his medications, which resolves within seconds. He does not experience this sensation later in the day. He denies any significant swelling in the ankles or any unusual symptoms. He has upcoming appointments with vascular surgery. He also mentions a history of AAA, for which he is under surveillance in Feb 2023. His BP was borderline low today. Also low last week at wound clinic. He notes mild dizziness upon standing at times. Taking meds as prescribed. Review of Systems: See HPI for pertinent positives. All others negative, other than those noted in HPI. Patient Active Problem List Diagnosis Anemia Prostate cancer (HCC) Memory difficulties Spinal cord stimulator status Lumbar radiculopathy Degeneration of lumbar intervertebral disc Lumbar canal stenosis Failed back syndrome Drop foot gait History of bladder cancer Monoclonal paraproteinemia History of pulmonary embolism Presence of IVC filter Polymyalgia rheumatica (HCC) Essential (primary) hypertension Age-related osteoporosis without current pathological fracture Other specified peripheral vascular diseases (HCC) Gastro-esophageal reflux disease without esophagitis Gastroparesis Primary open-angle glaucoma, bilateral, moderate stage Tremor of right hand Primary insomnia Mixed sensory-motor polyneuropathy Drug-induced constipation Infrarenal abdominal aortic aneurysm (AAA) without rupture (HCC) Left ear pain Persistent atrial fibrillation (HCC) Saccular aneurysm Social History Tobacco Use Smoking status: Every Day Types: Cigars Passive exposure: Past Smokeless tobacco: Never Tobacco comments: 02/23/23 3-4 small cigars a day, declined pamphlet Vaping Use Vaping status: Never Used Substance Use Topics Alcohol use: Yes Comment: glass of wine every week Drug use: No Past Surgical History: Procedure Laterality Date COLONOSCOPY W/ LESION REMOVAL, SNARE 05/23/2008 polyps return 3-5 yrs COLONOSCOPY, DIAGNOSTIC (RECTUM) 12/05/2018 diverticulosis, fair prep, repeat 5 yrsCOLONOSCOPY FLEXIBLE PROXIMAL DIAGNOSTIC performed by Luiza Murguia DO at [facility] EGD, FLEXIBLE, DIAGNOSTIC 03/03/2017 benign gastric polyp/ESOPHAGOGASTRODUODENOSCOPY (EGD), FLEXIBLE, TRANSORAL, DIAGNOSTIC performed byVirginie Murguia DO at [facility] EGD, FLEXIBLE, DIAGNOSTIC 01/23/2020 gastritis / ESOPHAGOGASTRODUODENOSCOPY (EGD), FLEXIBLE, TRANSORAL, DIAGNOSTIC performed by Virginie Gamboa DO at [facility] EGD, W/ENDOSCOPIC US 07/07/2015 fundic gastric polyp, stromal cell neoplasm, CBD dilation, repeat 1 yr/ESOPHAGOGASTRODUODENOSCOPY (EGD), FLEXIBLE, TRANSORAL, ENDOSCOPIC ULTRASOUND performed by Virginie Murguia DO at [facility] EGD, W/ENDOSCOPIC US 03/03/2017 leiomyoma, repeat 1.5 yrs/ESOPHAGOGASTRODUODENOSCOPY (EGD), FLEXIBLE, TRANSORAL, ENDOSCOPIC ULTRASOUND performed by Virginie Murguia DO at [facility] EGD, W/ENDOSCOPIC US 01/23/2020 duodenal lipoma, CBD dilation, kidney cyst, repeat 1.5 yrs / ESOPHAGOGASTRODUODENOSCOPY (EGD), FLEXIBLE, TRANSORAL, ENDOSCOPIC ULTRASOUND performed by Virginie Murguia DO at [facility] EGD, W/ENDOSCOPIC US 12/22/2022 dilation CBD/lesion duodenum/lesion left kidney/biopsies normal/ESOPHAGOGASTRODUODENOSCOPY (EGD), FLEXIBLE, TRANSORAL, ENDOSCOPIC ULTRASOUND performed by Virginie Murguia DO at [facility] INFORMATION 02/25/2014 02/25/2014 placement of inferior vena cava filter via right internal jugular approach [facility] 02/25/14 INFORMATION 02/17/2018 Medtronic Stimulator model# 12315 LAMINECTOMY/LAMINOTOMY, LUMBAR, GUIDE MISCELLANEOUS ORDER ([facility] ONLY) spinal cord stimulator placement OTHER laproscopic back surgery for scar tissue OTHER Bilateral 03/2022 Cataracts PROSTATECTOMY, RETROPUBIC RADICAL, LAP REMOVE NECK SPINE DISK, SINGLE C3-C4 REMOVE TONSILS & ADENOIDS, AGE 12+ at age 19 REPAIR RUPTURED ROTATOR CUFF, ACUTE R TOTAL HIP REPLACEMENT & PROSTHESIS B/L Family History Problem Relation Name Age of Onset Hypertension Mother Other (eczema) Mother Other (dementia) Mother COPD Father Prostate cancer Brother Heart disease Brother Review of patient's allergies indicates: Allergen Reactions Tszeifbdsrgky-Ck-Mx [Dextromethorphan-Guaifenesin] Causes night terrors Adalimumab Muscle pain (Humira) "knocked blood platelet way down" Antibiotic [Neomycin-Polymyxin B Gu] Destroys bacteria in GI system, AVOID-Pt stated he got C Diff after antibiotic therapy after havinga hip replacement. Methotrexate Decrease platelet count Trazodone Hallucinations Current Outpatient Medications Medication Sig Dispense Refill predniSONE 5 MG Oral Tablet (Deltasone) TAKE ONE TABLET BY MOUTH IN THE MORNING 90 Tablet 1 Baclofen 10 MG Oral Tablet (Lioresal) TAKE TWO TABLETS BY MOUTH EVERY MORNING, TWO TABLETS AT NOON,AND TWO TABLETS BEFORE BEDTIME 600 Tablet 1 oxyCODONE HCl 10 MG Oral Tablet (Roxicodone) Take 1 Tablet by mouth every 6 hours. 120 Tablet 0 Dorzolamide HCl-Timolol Mal 2-0.5 % Ophthalmic Solution (Cosopt Ocumeter Plus) INSTILL ONE DROP IN EACH EYE TWO TIMES A DAY 20 mL 3 Furosemide 20 MG Oral Tablet (Lasix) Take 1 Tablet by mouth in the morning. 100 Tablet 3 Brimonidine Tartrate 0.2 % Ophthalmic Solution (Alphagan) Place 1 drop into left eye twice a day 10mL 3 Metoprolol Succinate ER 50 MG Oral Tablet Extended Release 24 Hour (toPROL XL) Take 1 Tablet by mouth in the morning and 1 Tablet before bedtime. 200 Tablet 3 Abiraterone Acetate 250 MG Oral Tablet (Zytiga) Take 4 tablets by mouth in the morning on an empty stomach 1 hour before or 2 hours after food. 120 Tablet 5 Gabapentin 100 MG Oral Capsule (Neurontin) Take 1 Capsule by mouth 2 times a day. Take in morning and at 3 pm (Patient taking differently: Take 1 Capsule by mouth in the morning.) 200 Capsule 3 Ipratropium Emeigh 0.03 % Nasal Solution (Atrovent) Administer 2 Sprays into each nostril in the morning and 2 Sprays before bedtime. 30 mL 3 Travoprost (TIP Free) 0.004 % Ophthalmic Solution (Travatan Z) INSTILL ONE DROP IN EACH EYE AT BEDTIME 10 mL 3 Alfuzosin HCl ER 10 MG Oral Tablet Extended Release 24 Hour (Uroxatral) TAKE ONE TABLET BY MOUTH INTHE MORNING 100 Tablet 3 Gabapentin 300 MG Oral Capsule (Neurontin) TAKE ONE CAPSULE BY MOUTH AT BEDTIME 100 Capsule 3 Famotidine 20 MG Oral Tablet (Pepcid) TAKE ONE TABLET BY MOUTH AT BEDTIME 100 Tablet 3 Lisinopril 10 MG Oral Tablet (Prinivil) Take 1 Tablet by mouth in the morning. 100 Tablet 3 Xarelto 20 MG Oral Tablet TAKE ONE TABLET BY MOUTH EVERY EVENING 100 Tablet 3 Multivitamin Adult Oral Tablet Chewable Take by mouth. Fluticasone Propionate 50 MCG/ACT Nasal Suspension Administer 2 Sprays into each nostril in the morning. 18.2 mL 3 Acetaminophen 325 MG Oral Tablet (Tylenol) Take 2 Tablets by mouth every 4 hours as needed. Diclofenac Sodium 1 % External Gel (Voltaren) Apply topically to affected area as needed . Polyethylene Glycol 3350 17 GM Oral Packet Take 1 Packet by mouth daily as needed for Constipation. Docusate Sodium 100 MG Oral Capsule (Colace) Take 1 Capsule by mouth in the morning. No current facility-administered medications for this visit. PHYSICAL EXAM: BP 108/60 | Pulse 72 | Wt 64.9 kg (143 lb) | SpO2 90% | BMI 24.55 kg/m | BSA 1.71 m On my repeat 94/64 General: Awake, alert and oriented x 3. No acute distress. HEENT: Normocephalic, atraumatic. Pupils equal, round and reactive to light and accommodation. Extraocular muscles are intact. Anicteric sclera. Moist mucous membranes. Neck: No JVD. No bruit. Cardiovascular: Irregularly irregular Positive S-4. Normal S-1 and S-2. No S-3. No murmurs or rubs. Pulmonary: Clear to auscultation bilaterally. No rales, rhonchi, or wheezing. Abdomen: Bowel sounds x 4, soft. No rebound, guarding or tenderness. No organomegaly. Extremities: No clubbing, cyanosis or edema. +2 pedal pulses bilaterally. Skin: Warm and dry. Cardiac studies/labs: EKG performed June 2023: Afib with controlled rates. Possible old anterior infarct, previously reported T wave abnormality improved in anterior leads. EKG reviewed from Feb 2022: Atrial fibrillation with controled rates at 86 bpm Left axis deviation Anterior infarct (cited on or before 09-NOV-2021) Abnormal ECG EKG performed Oct 2021 Sinus bradycardia with 1st degree AV block Occ PVC's Possible old septal infarct Echo report reviewed dated September 2021 at [facility]: LV is normal in size. No abnormalities are noted. Ejection fraction 65-70%. Borderline left atrial enlargement. Aortic valve sclerosis mild without significant aortic valvular stenosis. Latest Reference Range & Units 01/11/23 14:20 Triglycerides <=174 mg/dL 146 Cholesterol <200 mg/dL 154 Non-HDL Cholesterol <=159 mg/dL 102 HDL Cholesterol >39 mg/dL 52 LDL Cholesterol <=129 mg/dL 73 Assessment & Plan Atrial Fibrillation - chronic/persistent. Rates controlled. Stable on Metoprolol and Xarelto for anticoagulation. No new symptoms. -Continue current regimen. Hypertension Blood pressure readings on the lower side. Currently on Lisinopril 10 mg daily. -Reduce Lisinopril to 5 mg daily. -monitor BP Tobacco Use Reports smoking 1-3 cigars daily. Hyperlipidemia Due for cholesterol check. -Order lipid panel. AAA -follow up with vascular surgery in Feb as scheduled Patient is being evaluated in the cardiology office for ongoing care/risk management for Afib; HTN. I spent a total of 30 minutes on the date of service in preparation, delivery, and documentation ofthe care provided to Travon Romero excluding any time spent in the performance of separately billed services. The patient agrees to the above plan and will call with additional questions or concerns. ER with all emergencies advised. Follow Up: Return in about 6 months (around 07/09/2024). Laney Flores PA-C Department of Cardiology Text in this note was generated using an ambient documentation service. I discussed the use of a device to record and summarize our discussion today. All persons present during the encounter consented to its use. This chart was completed in part utilizing [employer] Voice Recognition Software. Grammatical errors, random word insertions, prounoun errors, and incomplete sentences are an occasional consequence of this system due to software limitations, ambient noise, and hardware issues. Any formal questions or concerns about the content, text, or information contained within the body of this dictation should be directly addressed to the provider for clarification. documented in this encounter Nursing Notes * Ema Blount CMA - 01/10/2024 1:29 PM EST Examination Room: 1 Name: Travon Romero Date of : (1945) Reason for Visit: 6m Interim Hospitalization(s): none Problems/Concerns: denied Chest Pain/SOB: denied My [facility] is a way you can talk to your provider online through e-mail. Would you like to sign up? I can activate it for you? ALREADY ACTIVE Patient was instructed to not get up on the exam table until directed and assisted by their provider; patient is to remain seated in the chair/ wheelchair/ exam table for fall prevention and safety reasons. Patient is aware to have assistance to step down off exam table with personnel. Patient voiced full comprehension of instructions. documented in this encounter Plan of Treatment Upcoming Encounters Date Type Department Care Team (Late st Contact Info) Description 01/13/2024 3:00 PM EST Office Visit Family Practice [address] [place] [address] [address] [facility] [place] [address] Clifford Gandhi, [address] [place] [address] 02/24/2024 10:15 AM EST Imaging Radiology [facility] [address] [facility] [address] [address] 02/29/2024 10:50 AM EST Office Visit Vascular Surgery, [facility] [address] [facility] [place] [address] Gordo Arreola MD [address] [place] [address] 03/20/2024 11:00 AM EST Office Visit Gastroenterology, [facility] [address] [facility] [place] [address] Jerome De La Cruz CRNP [address] [place] [address] 03/29/2024 2:30 PM EST Office Visit Hematology/Oncology [facility] [address] [place] [address] Derick Conde MD [address] [place] [address] 07/11/2024 1:30 PM EDT Office Visit Cardiology, [facility] [address] [place] [address] Laney Flores PA-C [address] [place] [address] Scheduled Orders Name Type Priority Associated Diagnoses Orde r Schedule LIPID PANEL WITH DIRECT LDL IF TG IS HIGH Lab Routine Persistent atrial fibrillation (HCC) Essential (primary) hypertension Expected: 01/10/2024, Expires: 01/09/2025 Scheduled Procedures Name Priority Associated Diagnoses Date/Ti me COLONOSCOPY FLEXIBLE PROXIMA L DIAGNOSTIC Recall Encounter for screening colonoscopy Health Maintenance Due Date Last Done Comments Adult Wellness Visit 07/04/2009 Colonoscopy 12/06/2023 12/05/2018, 11/21, 05/23/2008 *BISPHONATE OR OTHER ACCEPTABLE MEDICATION NEEDED FOR OSTEOPOROSIS (REFER TO SMARTSET #1146) 01/10/2024 Depression Screening 02/24/2024 02/23/2023 GFR 10/16/2024 10/17/2023, 0806/2023, 08/18/2023, Additional history exists Albumin/Creatinine Ratio 01/11/2025 01/11/2022 DXA Scan 08/08/2025 08/09/2023, 07/22, 09/23/2020, Additional history exists DTap/Tdap Vaccines (4 - Td or Tdap) 01/30/2029 01/30/2019, 11/19/2008, 11/22/2004 RETIRED - COLONOSCOPY-EVERY 5 YRS AGES 18-100 Discontinued 12/05/2018, 12/05/2018, 05/23/2008 Zoster Vaccines Completed 01/18/2020, 11/17/2019 VITAMIN D LEVEL ONCE IN A LIFETIME-USE SMARTSET# 68096 Completed 10/03/2020, 06/03/2020 COVID-19 Vaccine Completed 11/08/2023, , 12/23/2022, Additional history exists Influenza Vaccine (FLU shot) Completed 11/08/2023, 11/19/2022, 11/09/2021, Additional history exists Pneumococcal Vaccine: 65+ Years Completed 11/08/2023, 12/23/2014, 08/13/2013 HPV (Gardasil) Vaccine Aged Out No lo nger eligible based on patient's age to complete this topic Hepatitis B Vaccine Aged Out No longe r eligible based on patient's age to complete this topic MENINGOCOCCAL (MENACTRA/MENVEO) Aged Out No longer eligible based on patient's age to complete this topic documented as of this encounter Medical Devices Not on filedocumented as of this encounter Visit Diagnoses Diagnosis Abdominal aortic aneurysm (AAA) without rupture, unspecified part (HCC)- Primary Essential (primary) hypertension Unspecified essential hypertension Paroxysmal atrial fibrillation (HCC) Atrial fibrillation Anemia, unspecified type Gastro-esophageal reflux disease without esophagitis Esophageal reflux Prostate cancer (HCC) Malignant neoplasm of prostate Left ear pain Otalgia, unspecified Persistent atrial fibrillation (HCC)- Primary Atrial fibrillation Essential (primary) hypertension Unspecified essential hypertension Abdominal aortic aneurysm (AAA) without rupture, unspecified part (HCC) documented in this encounter Advance Directives Healthcare Agents on File Name Relationship Healthcare Agent Relationshi p Communication Sherry Romero Spouse Health Care Power of Attorne y Care Teams Service Mechanic Relationship Specialty Start Date End Date Clifford Gandhi DO [address] [place] [address] PCP - General Internal Medicine 08/18/23 documented as of this encounter
--- OUTSIDE RECORDS SUMMARY | 2024-01-13 23:40 | External Medical Summary | Summary of Care ---
Author Name Unknown Organization [facility] Address [address] [facility] [place] [address] Phone [phone] Care Team Providers Care Model Dresser Name Role Phone Clifford Gandhi DO Primary Care Provider [phone] Reason for Visit * Reason Comments Follow Up 6 month follow up. W ould like full skin check. Report patch on scalp still present. Hx: ak, sk Encounter Details Date Type Department Care Team (Late st Contact Info) Description 01/03/2024 2:50 PM EST Office Visit Dermatology, Teresa Wolf [address] [place] [address] Tiffanie Horner PA-C [address] [place] [id number] Skin exam, screening for cancer*; Hx of nonmelanoma skin cancer; Seborrheic keratosis; Skin neoplasm; AK (actinic keratosis) Allergies Active Allergy Reactions Criticality Noted Date [...] as of this encounter (statuses as of 01/03/2024) Medications Docusate Sodium 100 MG Oral Capsule (Colace) Take 1 Capsule by mouth in the morning. 07/23/19 22 Active Acetaminophen 325 MG Oral Tablet (Tylenol) Take 2 Tablets by mouth every 4 hours as needed. Active Polyethylene Glycol 3350 17 GM Oral Packet Take 1 Packet by mouth daily as needed for Constipation. Active Diclofenac Sodium 1 % External Gel (Voltaren) Apply topically to affected area as needed . Active Fluticasone Propionate 50 MCG/ACT Nasal SuspensionIndicati ons:Otalgia, left Administer 2 Sprays into each nostril in the morning. 18.2 mL 3 02/02/20 22 Active Multivitamin Adult Oral Tablet Chewable Take by mouth. Activ e Xarelto 20 MG Oral Tablet TAKE ONE TABLET BY MOUTH EVERY EVENING 100 Tablet 3 4 8:30 AM EDT 03/10/19 24 Active Lisinopril 10 MG Oral Tablet (Prinivil) Take 1 Tablet by mouth in the morning. 100 Tablet 3 4 11:52 AM EDT 03/30/19 24 Active Famotidine 20 MG Oral Tablet (Pepcid)Indication s:Gastro-esophagea l reflux disease without esophagitis TAKE ONE TABLET BY MOUTH AT BEDTIME 100 Tablet 3 4 5:47 PM EDT 03/30/19 24 025 Active Gabapentin 300 MG Oral Capsule (Neurontin)Indicat ions:Degeneration of lumbar intervertebral disc,Failed back syndrome TAKE ONE CAPSULE BY MOUTH AT BEDTIME 100 Capsule 3 4 5:47 PM EDT 04/11/19 24 025 Active Alfuzosin HCl ER 10 MG Oral Tablet Extended Release 24 Hour (Uroxatral)Indicat ions:Essential (primary) hypertension TAKE ONE TABLET BY MOUTH IN THE MORNING 100 Tablet 3 4 5:48 PM EDT 04/19/19 24 025 Active Travoprost (TIP Free) 0.004 % Ophthalmic Solution (Travatan Z) INSTILL ONE DROP IN EACH EYE AT BEDTIME 10 mL 3 4 9:52 AM EDT 04/26/19 24 Active predniSONE 5 MG Oral Tablet (Deltasone)Indicat ions:Prostate cancer (HCC) TAKE ONE TABLET BY MOUTH IN THE MORNING 90 Tablet 1 4 12:32 PM EDT 06/08/19 24 025 Active Ipratropium [place] 0.03 % Nasal Solution (Atrovent) Administer 2 Sprays into each nostril in the morning and 2 Sprays before bedtime. 30 mL 3 06/13/19 24 Active Gabapentin 100 MG Oral Capsule (Neurontin)Indicat ions:Spinal stenosis of lumbar region with neurogenic claudication,Faile d back syndrome Take 1 Capsule by mouth 2 times a day. Take in morning and at 3 pm 200 Capsule 3 4 5:59 PM EDT 07/12/19 24 Active Additional Information Patient taking differently:100 mg OralDaily(AM), (No instructions reported), Reported on 10/17/2023 Abiraterone Acetate 250 MG Oral Tablet (Zytiga)Indication s:Prostate cancer (HCC) Take 4 tablets by mouth in the morning on an empty stomach 1 hour before or 2 hours after food. 120 Tablet 5 4 1:27 PM EDT 09/05/19 24 Active Metoprolol Succinate ER 50 MG Oral Tablet Extended Release 24 Hour (toPROL XL)Indications:Per sistent atrial fibrillation (HCC) Take 1 Tablet by mouth in the morning and 1 Tablet before bedtime. 200 Tablet 3 4 4:29 PM EST 09/15/19 24 Active Brimonidine Tartrate 0.2 % Ophthalmic Solution (Alphagan) Place 1 drop into left eye twice a day 10 mL 3 4 11:22 AM EST 09/29/19 24 Active Dorzolamide HCl-Timolol Mal 2-0.5 % Ophthalmic Solution (Cosopt Ocumeter Plus) INSTILL ONE DROP IN EACH EYE TWO TIMES A DAY 20 mL 3 4 7:46 AM EDT 11/08/19 24 025 Active Furosemide 20 MG Oral Tablet (Lasix)Indications :Edema, unspecified type Take 1 Tablet by mouth in the morning. 100 Tablet 3 4 10:45 AM EDT 11/08/19 24 Active oxyCODONE HCl 10 MG Oral Tablet (Roxicodone)Indica tions:Failed back syndrome,Spinal stenosis of lumbar region with neurogenic claudication Take 1 Tablet by mouth every 6 hours. 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 Persistent atrial fibrillation 05/26/2022 [...] as of this encounter (statuses as of 01/03/2024) Resolved Problems Problem Noted Date Diagnosed Date [...] as of this encounter (statuses as of 01/03/2024) Immunizations Name Administration Dates Next Due COVID-19 mRNA, LNP-s, No Pre serve, 2-Dose Series (Moderna) 12/20/2020,04/18/2020,03/20/2020 COVID-19, MRNA-LNP, PF, 30 M CG/0.3 mL, 12 YRS AND ABOVE, IM (PFIZERSsm Rehabirnat) 11/08/2023,07/12/2023,12/23/2022 COVID-19, mRNA, LNP-s, PF, B ooster, 100mcg/0.5mg (Moderna) 06/24/2021 Covid-19, Mrna, Lnp-s, Pf, B ivalent, 30 Mcg, IM, 12 yrs and above (Pfizer) 03/09/2022 DTaP Dipth/Tet/Acell Pertussis (Infanrix), Peds 11/22/2004 PPD 05/27/2009 Pneumococcal Conjugate Vacc, 13 Valent (Prevnar) 12/23/2014 Pneumococcal Conjugate Vacci ne, 20-valent ([id number]) 11/08/2023 Pneumococcal Polysaccharide PPV23 (Pneumovax) 08/13/2013 Season [...] No 02/23/2023 Does the household have a [facility] source of income? 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 Answer Date of Assessment Author No 01/07/2015 3:00 PM Fabio Parikh, OSWAL[place] * Are you blind or do you have serious difficulty seeing, even when wearing glasses? Answer Date of Assessment Author Yes 01/07/2015 3:00 PM EST Per, Ma rgaret A, OSWALDO * Do you have serious difficulty walking or climbing stairs? (5 years old or older) Answer Date of Assessment Author Yes 01/07/2015 3:00 PM RIVER Albarado Ma rgaret A, OSWALDO * Do you have difficulty dressing or bathing? (5 years old or older) Answer Date of Assessment Author No 01/07/2015 3:00 PM RIVER Albarado Ma rgaret A, OSWALDO * Because of a physical, mental, or emotional condition, do you have difficulty doing errands alone such as visiting a doctors office or shopping? (15 years old or older) Answer Date of Assessment Author No 01/07/2015 3:00 PM RIVER Albarado Ma rgaret A, OSWALDO documented as of this encounter Mental Status * Because of a physical, mental, or emotional condition, do you have serious difficulty concentrating, remembering, or making decisions? (5 years old or older) Answer Entry Date Author Yes 01/07/2015 3:00 PM RIVER Fabio Albarado yanit A, OSWALDO documented in this encounter Progress Notes * Tiffanie Horner PA-C - 01/03/2024 2:36 PM EST SUBJECTIVE: CC: Full body skin exam HPI: Travon Romero is a 78 year old male seen for skin exam. Several skin cancers removed last visit. Returns for follow up. Several rough spots on face and scalp- bothersome. 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 DERMATOLOGIC HISTORY: Reviewed previous office notes and relevant surgical pathology: History of skin disorders: no History of skin cancer: Hx BCC L lower back (2023-curettage), SCCIS L chest (2023-curettage), HAK Rdorsal hand (2023-curettage) REVIEW OF SYSTEMS: See HPI- all other findings negative Constitutional: (-) fever, chills, sweats, weight loss Cardiovascular: (-) lower extremity edema Skin: (-) no rash or new or changing moles or skin lesions Past Medical History: Diagnosis Date Abdominal aortic aneurysm (AAA) without rupture ([facility]) 08/23/2016 Back pain, lumbosacral DVT (deep venous thrombosis) ([facility]) Gastroparesis 08/06/2021 History of bladder cancer 07/22/2021 History of pulmonary embolism 07/22/2021 ITP (idiopathic thrombocytopenic purpura) 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 07/22/2021 Neck pain Presence of IVC filter 07/22/2021 Prostate CA ([facility]) Prostate cancer ([facility]) 06/18/2013 Pulmonary embolism ([facility]) Thrombocytopenia ([facility]) 06/18/2013 Patien t Active Problem List Diagnosis Anemia Prostate cancer ([facility]) Memory difficulties Spinal cord stimulator status Lumbar radiculopathy Degeneration of lumbar intervertebral disc Lumbar canal stenosis Failed back syndrome Drop foot gait History of bladder cancer Monoclonal paraproteinemia History of pulmonary embolism Presence of IVC filter Polymyalgia rheumatica ([facility]) Essential (primary) hypertension Age-related osteoporosis without current pathological fracture Other specified peripheral vascular diseases ([facility]) Gastro-esophageal reflux disease without esophagitis Gastroparesis Primary open-angle glaucoma, bilateral, moderate stage Tremor of right hand Primary insomnia Mixed sensory-motor polyneuropathy Drug-induced constipation Infrarenal abdominal aortic aneurysm (AAA) without rupture ([facility]) Left ear pain Persistent atrial fibrillation ([facility]) Saccular aneurysm SOCIAL HISTORY: Social History Tobacco Use Smoking status: Every Day Types: Cigars Passive exposure: Past Smokeless tobacco: Never Tobacco comments: 02/23/23 3-4 small cigars a day, declined pamphlet Substance Use Topics Alcohol use: Yes Comment: glass of wine every week Vaping/E-Cigarette Use Vaping/E-Cigarette Use Never User Vaping/E-Cigarette Substances Vaping/E-Cigarette Devices MEDICA TIONS: Current Outpatient Medications Medication Sig Dispense Refill Docusate Sodium 100 MG Oral Capsule (Colace) Take 1 Capsule by mouth in the morning. Acetaminophen 325 MG Oral Tablet (Tylenol) Take 2 Tablets by mouth every 4 hours as needed. Polyethylene Glycol 3350 17 GM Oral Packet Take 1 Packet by mouth daily as needed for Constipation. Diclofenac Sodium 1 % External Gel (Voltaren) Apply topically to affected area as needed . Fluticasone Propionate 50 MCG/ACT Nasal Suspension Administer 2 Sprays into each nostril in the morning. 18.2 mL 3 Multivitamin Adult Oral Tablet Chewable Take by mouth. Xarelto 20 MG Oral Tablet TAKE ONE TABLET BY MOUTH EVERY EVENING 100 Tablet 3 Lisinopril 10 MG Oral Tablet (Prinivil) Take 1 Tablet by mouth in the morning. 100 Tablet 3 Famotidine 20 MG Oral Tablet (Pepcid) TAKE ONE TABLET BY MOUTH AT BEDTIME 100 Tablet 3 Gabapentin 300 MG Oral Capsule (Neurontin) TAKE ONE CAPSULE BY MOUTH AT BEDTIME 100 Capsule 3 Alfuzosin HCl ER 10 MG Oral Tablet Extended Release 24 Hour (Uroxatral) TAKE ONE TABLET BY MOUTH INTHE MORNING 100 Tablet 3 Travoprost (TIP Free) 0.004 % Ophthalmic Solution (Travatan Z) INSTILL ONE DROP IN EACH EYE AT BEDTIME 10 mL 3 predniSONE 5 MG Oral Tablet (Deltasone) TAKE ONE TABLET BY MOUTH IN THE MORNING 90 Tablet 1 Ipratropium [place] 0.03 % Nasal Solution (Atrovent) Administer 2 Sprays into each nostril in the morning and 2 Sprays before bedtime. 30 mL 3 Gabapentin 100 MG Oral Capsule (Neurontin) Take 1 Capsule by mouth 2 times a day. Take in morning and at 3 pm (Patient taking differently: Take 1 Capsule by mouth in the morning.) 200 Capsule 3 Abiraterone Acetate 250 MG Oral Tablet (Zytiga) Take 4 tablets by mouth in the morning on an empty stomach 1 hour before or 2 hours after food. 120 Tablet 5 Metoprolol Succinate ER 50 MG Oral Tablet Extended Release 24 Hour (toPROL XL) Take 1 Tablet by mouth in the morning and 1 Tablet before bedtime. 200 Tablet 3 Brimonidine Tartrate 0.2 % Ophthalmic Solution (Alphagan) Place 1 drop into left eye twice a day 10mL 3 Dorzolamide HCl-Timolol Mal 2-0.5 % Ophthalmic Solution (Cosopt Ocumeter Plus) INSTILL ONE DROP IN EACH EYE TWO TIMES A DAY 20 mL 3 Furosemide 20 MG Oral Tablet (Lasix) Take 1 Tablet by mouth in the morning. 100 Tablet 3 oxyCODONE HCl 10 MG Oral Tablet (Roxicodone) Take 1 Tablet by mouth every 6 hours. 120 Tablet 0 Baclofen 10 MG Oral Tablet (Lioresal) TAKE TWO TABLETS BY MOUTH EVERY MORNING TWO TABLETS AT NOON AND TWO TABLETS BEFORE BEDTIME 600 Tablet 1 No current facility-administered medications for this visit. ALLERG IES: Cnuurxhjzysan-if-vk [dextromethorphan-guaifenesin], Adalimumab, Antibiotic [neomycin-polymyxin b gu], Methotrexate, and Trazodone OBJECTIVE: GEN: Healthy, alert, no distress, appears oriented, pleasant, and cooperative. PSYCH: Appropriate mood and affect, alert SKIN: Detailed exam of scalp, hair, face including lids and lips, ears, neck, chest, back, abdomen,buttocks, bilateral upper extremities and bilateral lower extremities including the nails and digits was completed and are within normal limits with the following exceptions: 6 mm black papule on L neck 2. Raised erythematous scaly circumscribed area with nelson/white keratotic scale on scalp and face 3. Multiple stuck-on, brown to skin colored papules scattered on face, trunk and extremities 4. Scar on lower back and chest ASSESS MENT/PLAN: 1. Favor SK vs r/o MM -Discussed concern for potential malignancy and recommendation of biopsy. Patient agreeable. -Biopsy of the lesion noted above to establish and confirm diagnosis. Biopsy by tangential shave biopsy was recommended which the patient was agreeable to. The procedure, risks, benefits, indications, alternatives, and complications were discussed with the patient and informed consent was obtained.Specifically, the expectation of a permanent scar and risk of possible infection were explained to the patient and understood. Time out called. Patient identified, procedure verified, site identifiedand verified. Patient and staff present in agreement. Area prepped with alcohol and anesthetized with 2.5 mL of 0.5% lidocaine with epinephrine. Biopsy via horizontal technique was performed. Hemostasis was obtained with aluminum chloride. Petrolatum and bandage were applied. The patient tolerated the procedure well without complications and with minimal blood loss. Patient instructed in routine post-op care. Specimen(s) sent to pathology. We will call with biopsy results and arrange appropriate follow-up care as indicated. 2. Actinic Keratosis (Quantity 6, Location see above) -Educated on premalignant potential and small risk of developing into a SCC -Discussed treatment options including cryotherapy. Patient prefers cryotherapy. -Cryosurgery procedure, risks and benefits explained to the patient. Specifically, side effects including blistering, hyperpigmentation, hypopigmentation, scar or pain at procedure site was discussedand patient verbalized understanding. Consent was obtained. Patient, site and procedure verified. Cryotherapy was performed with Liquid Nitrogen via cryo spray unit to 6 lesions. Location noted in physical exam. Post op course explained. -Counseled on importance of sun protection with sunscreen of at least SPF 30 and protective clothing. -Discussed importance of yearly skin checks and to contact our office if he notices any new or changes skin lesion. 3. Seborrheic Keratoses -Reassured of the benign nature of lesion -Discussed with patient that they may get more of these lesions in the future -If there are any lesions that become irritated, bleed, or painful to return to clinic for evaluation -No current treatment necessary at this time 4. History of Nonmelanoma Skin Cancer -Scars well healed without clinical evidence of local recurrence -Sun protection (including sun avoidance, sun screen and protective clothing) and skin checks -Advised to perform routine (at least once a year) skin self-examinations. Advised to contact theirdermatologist immediately if they notice any new or changing skin lesions. I have provided a significant and separately identifiable visit with today's procedure because an extensive amount of counseling related to the procedure was required due to biopsy . Patient with today. Follow-up: 6-9 months Photos taken 15-25, patient consented to photos. Contact patient via [employer] Patient Phone Numbers Applicable photos (if any) and chart reviewed by Dr. Ananda Butcher The patient was encouraged to contact me with any further questions or concerns. Tiffanie Horner PA-C 01/03/2024 2:36 PM documented in this encounter Nursing Notes * Riana Juan LPN - 01/03/2024 2:35 PM EST Patient identified by name and date. Chief Complaint Patient presents with Follow Up 6 month follow up. Would like full skin check. Report patch on scalp still present. Hx: ak, sk documented in this encounter Plan of Treatment Upcoming Encounters Date Type Department Care Team (Late st Contact Info) Description 01/10/2024 1:30 PM EST Office Visit Cardiology, [facility] [address] [place] [address] Laney Flores PA-C [address] [place] [address] 01/13/2024 3:00 PM EST Office Visit Family Practice [address] [place] [address], [place] [address] [place] [address] Clifford Gandhi, [address] [place] [address] 02/24/2024 10:15 AM EST Imaging Radiology [facility] [address] [facility] [address] [facility] [place] [address] 02/29/2024 10:50 AM EST Office Visit Vascular Surgery, [facility] [address] [facility] [place] [address] Gordo Arreola MD [address] [place] [address] 03/20/2024 11:00 AM EST Office Visit Gastroenterology, [facility] [address] [facility] [place] [address] Jerome De La Cruz CRNP [address] [place] [address] 03/29/2024 2:30 PM EST Office Visit Hematology/Oncology [facility] [address] [facility] [place] [id number] Derick Conde MD [address] [facility] [address] Pending Results Name Type Priority Associated Diagnoses Date /Time SURGICAL PATHOLOGY Pathology Routine Skin neoplasm 01/03/2024 2:53 PM EST Scheduled Procedures Name Priority Associated Diagnoses Date/Ti me COLONOSCOPY FLEXIBLE PROXIMA L DIAGNOSTIC Recall Encounter for screening colonoscopy Health Maintenance Due Date Last Done Comments Adult Wellness Visit 07/04/2009 Colonoscopy 12/06/2023 12/05/2018, 11/21, 05/23/2008 Depression Screening 02/24/2024 02/23/2023 GFR 10/16/2024 10/17/2023, 08/06/2023, 08/18/2023, Additional history exists Albumin/Creatinine Ratio 01/11/2025 01/11/2022 DXA Scan 08/08/2025 08/09/2023, 07/22, 09/23/2020, Additional history exists DTap/Tdap Vaccines (4 - Td or Tdap) 01/30/2029 01/30/2019, 11/19/2008, 11/22/2004 RETIRED - COLONOSCOPY-EVERY 5 YRS AGES 18-100 Discontinued 12/05/2018, 12/05/2018, 05/23/2008 Zoster Vaccines Completed 01/18/2020, 11/17/2019 VITAMIN D LEVEL ONCE IN A LIFETIME-USE SMARTSET# [id number] Completed 10/03/2020, 06/03/2020 COVID-19 Vaccine Completed 11/08/2023, [...] Not on filedocumented as of this encounter Procedures Procedure Name Priority Date/Time Associated Diagnosis Comments DERM EXAM - DERM (IMAGES ONLY, NO REPORT) Routine 01/03/2024 3:03 PM EST Skin exam, screening for cancer Hx of nonmelanoma skin cancer Seborrheic keratosis Skin neoplasm AK (actinic keratosis) documented in this encounter Results * DERM EXAM - DERM (IMAGES ONLY, NO REPORT) (01/03/2024 3:03 PM EST) Narrative Scheduling, Silent - 01/03/2024 3:03 PM EST This is an imaging study not interpreted or resulted by a [facility] or [facility] contracted radiologist. Tiffanie Horner PA-C RADIOLOGY (RAD GENERAL) Final Result documented in this encounter Visit Diagnoses Diagnosis Abdominal aortic aneurysm (AAA) without rupture, unspecified part (HCC)- Primary Essential (primary) hypertension Unspecified essential hypertension Paroxysmal atrial fibrillation (HCC) Atrial fibrillation Anemia, unspecified type Gastro-esophageal reflux disease without esophagitis Esophageal reflux Prostate cancer (HCC) Malignant neoplasm of prostate Left ear pain Otalgia, unspecified Skin exam, screening for cancer- Primary Screening for malignant neoplasm of the skin Hx of nonmelanoma skin cancer Personal history of other malignant neoplasm of skin Seborrheic keratosis Other seborrheic keratosis Skin neoplasm Neoplasm of unspecified nature of bone, soft tissue, and skin AK (actinic keratosis) Actinic keratosis documented in this encounter Advance Directives Healthcare Agents on File Name Relationship Healthcare Agent [facility] p Communication Sherry Romero Spouse Health Care Power of Attorne y Care Teams Model Dresser Relationship Specialty Start Date End Date Clifford Gandhi DO [address] [place] [address] PCP - General Internal Medicine 08/18/23 documented as of this encounter
--- OUTSIDE RECORDS SUMMARY | 2024-01-13 23:40 | External Medical Summary | Summary of Care ---
Author Name Unknown Organization [facility] Address [address] [place] [address] Phone [phone] Care Team Providers Care Staff Sonographer Name Role Phone Clifford Gandhi DO Primary Care Provider [phone] Reason for Visit * Reason Comments Medication Refill Encounter Details Date Type Department Care Team (Late st Contact Info) Description 01/04/2024 Refill Hematology/Oncology [facility] [address] [facility] [place] [address] Stacey Conde MD [address] [place] [address] Prostate cancer (HCC) Allergies Active Allergy Reactions Criticality Noted [...] as of this encounter (statuses as of 01/04/2024) Medications Docusate Sodium 100 MG Oral Capsule [...] 4 9:52 AM EDT 04/26/19 24 Active Ipratropium [place] 0.03 % Nasal Solution (Atrovent) Administer 2 [...] 600 Tablet 1 01/03/20 24 025 Active predniSONE 5 MG Oral Tablet (Deltasone)Indicat ions:Prostate cancer (HCC) TAKE ONE TABLET BY MOUTH IN THE MORNING 90 Tablet 1 01/04/20 24 025 Active predniSONE 5 MG Oral Tablet (Deltasone)Indicat ions:Prostate cancer (HCC) TAKE ONE TABLET BY MOUTH IN THE MORNING 90 Tablet 1 4 12:32 PM EDT 06/08/19 24 024 Discontin ued(Refil l) documented as of this encounter (statuses as of 01/04/2024) Active Problems Problem Noted Date Diagnosed Date [...] as of this encounter (statuses as of 01/04/2024) Resolved Problems Problem Noted Date Diagnosed Date [...] as of this encounter (statuses as of 01/04/2024) Immunizations Name Administration Dates Next Due COVID-19 mRNA, LNP-s, No Pre serve, 2-Dose Series (Moderna) 12/20/2020,04/18/2020,03/20/2020 COVID-19, MRNA-LNP, PF, 30 M CG/0.3 mL, 12 YRS AND ABOVE, IM [facility] 11/08/2023,07/12/2023,12/23/2022 COVID-19, mRNA, LNP-s, PF, B ooster, 100mcg/0.5mg (Moderna) 06/24/2021 Covid-19, Mrna, Lnp-s, Pf, B ivalent, 30 Mcg, IM, 12 yrs and above (Pfizer) 03/09/2022 DTaP Dipth/Tet/Acell Pertussis (Infanrix), Peds 11/22/2004 PPD 05/27/2009 Pneumococcal Conjugate Vacc, 13 Valent (Prevnar) 12/23/2014 Pneumococcal Conjugate Vacci ne, 20-valent ([id number]) 11/08/2023 Pneumococcal Polysaccharide PPV23 (Pneumovax) 08/13/2013 Season [...] money to buy more. 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 Answer Date of Assessment Author No 01/07/2015 3:00 PM Fabio Parikh OSWALDO * Are you blind or do you have serious difficulty seeing, even when wearing glasses? Answer Date of Assessment Author Yes 01/07/2015 3:00 PM Fabio Parikh OSWALDO * Do you have serious difficulty walking or climbing stairs? (5 years old or older) Answer Date of Assessment Author Yes 01/07/2015 3:00 PM EST Fabio Albarado jadeazebt A, OSWALDO * Do you have difficulty dressing or bathing? (5 years old or older) Answer Date of Assessment Author No 01/07/2015 3:00 PM Fabio Parikht A, OSWALDO * Because of a physical, mental, or emotional condition, do you have difficulty doing errands alone such as visiting a doctors office or shopping? (15 years old or older) Answer Date of Assessment Author No 01/07/2015 3:00 PM Fabio Parikht A, OSWALOD documented as of this encounter Mental Status * Because of a physical, mental, or emotional condition, do you have serious difficulty concentrating, remembering, or making decisions? (5 years old or older) Answer Entry Date Author Yes 01/07/2015 3:00 PM RIVER Albarado Ma jadeazebt A, OSWALDO documented in this encounter Miscellaneous Notes * Telephone Encounter - Stacey Conde MD - 01/04/2024 7:23 AM ESTSigned Prescriptions: Disp Refills predniSONE 5 MG Oral Tablet (Deltasone) 90 Tab*1 Sig: TAKE ONE TABLET BY MOUTH IN THE MORNING Authorizing Provider: STACEY CONDE * Telephone Encounter - Stacey Conde MD - 01/04/2024 7:23 AM EST E-prescribed prednisone. * Telephone Encounter - Torrie Garcia LPN - 01/04/2024 7:13 AM ESTPending Prescriptions: Disp Refills predniSONE 5 MG Oral Tablet (Deltasone) 90 Tab*1 Sig: TAKE ONE TABLET BY MOUTH IN THE MORNING * Telephone Encounter - Torrie Garcia LPN - 01/04/2024 7:11 AM EST Refill request for Prednisone 5 mg tab pended below: Last Refill:06/08/2023 Last seen: 09/28/2023 He will continue Zytiga (1000 mg once a day) and prednisone (5 mg once a day) as we planned earlier. Next Appt.: 03/29/2024 Requestor: [facility] documented in this encounter Plan of Treatment Upcoming Encounters Date Type Department Care Team (Late st Contact Info) Description 01/10/2024 1:30 PM EST Office Visit Cardiology, [facility] 132 [facility] [place] [address] Laney Flores PA-C [address] [place] [address] 01/13/2024 3:00 PM EST Office Visit Family Practice [address], [place] 293 [facility], [place] [address] Clifford Gandhi, 293 [facility], [place] [address] 02/24/2024 10:15 AM EST Imaging Radiology [facility] 1st [facility] [address] [place] [address] 02/29/2024 10:50 AM EST Office Visit Vascular Surgery, [facility] [address] [place] [address] Gordo Arreola MD [address] [facility] [place] [address] 03/20/2024 11:00 AM EST Office Visit Gastroenterology, [facility] [address] [place] [address] Jerome De La Cruz CRNP [address] [place] [address] 03/29/2024 2:30 PM EST Office Visit Hematology/Oncology [facility] 200 [facility] [place] [address] Stacey Conde MD [facility] [address] Scheduled Procedures Name Priority Associated Diagnoses Date/Ti me COLONOSCOPY FLEXIBLE PROXIMA L DIAGNOSTIC Recall Encounter for screening colonoscopy Health Maintenance Due Date Last Done Comments Adult Wellness Visit 07/04/2009 Colonoscopy 12/06/2023 12/05/2018, 11/21, 05/23/2008 Depression Screening 02/24/2024 02/23/2023 GFR 10/16/2024 10/17/2023, 06/2023, 08/18/2023, Additional history exists Albumin/Creatinine Ratio 01/11/2025 01/11/2022 DXA Scan 08/08/2025 08/09/2023, 07/22, 09/23/2020, Additional history exists DTap/Tdap Vaccines (4 - Td or Tdap) 01/30/2029 01/30/2019, 11/19/2008, 11/22/2004 RETIRED - COLONOSCOPY-EVERY 5 YRS AGES 18-100 Discontinued 12/05/2018, 12/05/2018, 05/23/2008 Zoster Vaccines Completed 01/18/2020, 11/17/2019 VITAMIN D LEVEL ONCE IN A LIFETIME-USE SMARTSET# [id number] Completed 10/03/2020, 06/03/2020 COVID-19 Vaccine Completed 11/08/2023, [...] of prostate Left ear pain Otalgia, unspecified Prostate cancer (HCC) Malignant neoplasm of prostate documented in this encounter Advance Directives Healthcare Agents on File Name Relationship Healthcare Agent [facility] Communication Sherry Romero Spouse Health Care Power of Attorne y Care Teams Staff Sonographer Relationship Specialty Start Date End Date Clifford Gandhi DO [address] [place] [address] PCP - General Internal Medicine 08/18/23 documented as of this encounter
--- OUTSIDE RECORDS SUMMARY | 2024-01-13 23:40 | External Medical Summary | Summary of Care ---
Author Name Unknown Organization [facility] Address [address] [facility] [place] [address] Phone [phone] Care Team Providers Care Turkey Pinner Name Role Phone Clifford Gandhi DO Primary Care Provider [phone] Reason for Visit * Reason Comments Follow Up 6 month follow up. W ould like full skin check. Report patch on scalp still present. Hx: ak, sk Encounter Details Date Type Department Care Team (Late st Contact Info) Description 01/03/2024 2:50 PM EST Office Visit Dermatology, [facility] [address] [place] [address] Tiffanie Horner PA-C [address] [place] [address] Skin exam, screening for cancer*; Hx of [...] 9:52 AM EDT 04/26/19 24 Active Ipratropium [place] 0.03 % Nasal Solution (Atrovent) Administer 2 [...] CG/0.3 mL, 12 YRS AND ABOVE, IM ([facility]) 11/08/2023,07/12/2023,12/23/2022 COVID-19, mRNA, LNP-s, PF, B ooster, 100mcg/0.5mg (Moderna) 06/24/2021 Covid-19, Mrna, Lnp-s, Pf, B ivalent, 30 Mcg, IM, 12 yrs and above (Pfizer) 03/09/2022 DTaP Dipth/Tet/Acell Pertussis (Infanrix), Peds 11/22/2004 PPD 05/27/2009 Pneumococcal Conjugate Vacc, 13 Valent (Prevnar) 12/23/2014 Pneumococcal Conjugate Vacci ne, 20-valent ([id number]) 11/08/2023 Pneumococcal Polysaccharide PPV23 (Pneumovax) 08/13/2013 Season [...] 02/23/2023 Does the household have a re lar source of income? 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 Answer Date of Assessment Author No 01/07/2015 3:00 PM EST Fabio Albarado rgaret A, OSWALDO * Are you blind or do you have serious difficulty seeing, even when wearing glasses? Answer Date of Assessment Author Yes 01/07/2015 3:00 PM EST Fabio Albarado jadearet A, OSWALDO * Do you have serious difficulty walking or climbing stairs? (5 years old or older) Answer Date of Assessment Author Yes 01/07/2015 3:00 PM EST Fabio Albarado rgaret A, OSWALDO * Do you have difficulty dressing or bathing? (5 years old or older) Answer Date of Assessment Author No 01/07/2015 3:00 PM RIVER Fabio Albarado rgaret A, OSWALDO * Because [...] Date Author Yes 01/07/2015 3:00 PM RIVER AlbaradoFabio rgaret A, OSWALDO documented in this encounter Progress Notes * Jerome Butcher MD - 01/03/2024 2:50 PM EST I have reviewed the relevant notes and photographs taken by LARISA Kasper. I have reviewed and agree with the assessment and plan. Jerome Butcher MD * Tiffanie Horner PA-C - 01/03/2024 2:36 PM EST SUBJECTIVE: CC: Full body skin exam HPI: Travon Romero is a 78 year old male seen for skin exam. Several skin cancers removed last visit. Returns for follow up. Several rough spots on face and scalp- bothersome. 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 ALLERG IES: Edksadopozymz-os-am [dextromethorphan-guaifenesin], Adalimumab, Antibiotic [neomycin-polymyxin b gu], Methotrexate, [...] with today. Follow-up: 6-9 months Photos taken -, patient consented to photos. Contact patient via eMoov Patient Phone Numbers Applicable photos (if any) [...] PM EST Office Visit Cardiology, [facility] 132 [place] [address] Laney Flores PA-C 132 [facility] [place] [address] 01/13/2024 3:00 PM EST Office Visit Family Practice 65 [facility], [place] [address] [place] [address] Clifford Gandhi, 293 [place] [address] 02/24/2024 10:15 AM EST Imaging Radiology [facility] 1st [facility], [place] 132 [place] [address] 02/29/2024 10:50 AM EST Office Visit Vascular Surgery, [facility] [address] [place] [address] Gordo Arroela MD [address] [place] [address] 03/20/2024 11:00 AM EST Office Visit Gastroenterology, [facility] [address] [address] Jerome De La Cruz CRNP 132 [facility] [place] [address] 03/29/2024 2:30 PM EST Office Visit Hematology/Oncology [facility] 200 [facility] [place] [phone] Derick Conde MD 200 [facility] [place] [address] Pending Results Name Type Priority Associated Diagnoses [...] D LEVEL ONCE IN A LIFETIME-USE SMARTSET# [id number] Completed 10/03/2020, 06/03/2020 COVID-19 Vaccine Completed 11/08/2023, [...] study not interpreted or resulted by a [employer]er or [employer] acquired by [employer] contracted radiologist. Tiffanie Horner PA-C RADIOLOGY ([facility]) Final Result documented in this encounter [...] Relationship Healthcare Agent Relationshi p Communication Sherry Romreo Spouse Health Care Power of Attorne y Care Teams Turkey Pinner Relationship Specialty Start Date End Date Clifford Gandhi DO [address] [facility] [place] [address] PCP - General Internal Medicine 08/18/23 documented as of this encounter
--- OUTSIDE RECORDS SUMMARY | 2024-01-13 23:40 | External Medical Summary | Summary of Care ---
Author Name Unknown Organization [facility] Address [address] [place] [address] Phone [phone] Care Team Providers Care Gas Station Attendant Name Role Phone Nathan Gandhi DO Primary Care Provider [phone] Reason for Visit * Reason Comments Medication Refill Encounter Details Date Type Department Care Team (Late st Contact Info) Description 01/02/2024 Refill Family Practice [address], [place] [address] [place] [address] Nathan Gandhi DO [address] [place] [address] Allergies Active Allergy Reactions Criticality Noted Date [...] PM EDT 06/08/19 24 025 Active Ipratropium [place] 0.03 % Nasal Solution (Atrovent) Administer 2 [...] 600 Tablet 1 01/03/20 24 025 Active Baclofen 10 MG Oral Tablet (Lioresal) TAKE TWO TABLETS BY MOUTH EVERY MORNING TWO TABLETS AT NOON AND TWO TABLETS BEFORE BEDTIME 600 Tablet 1 4 2:41 PM EDT 06/08/19 24 024 Discontin ued(Refil [...] CG/0.3 mL, 12 YRS AND ABOVE, IM ([facility]) 11/08/2023,07/12/2023,12/23/2022 COVID-19, mRNA, LNP-s, PF, B ooster, 100mcg/0.5mg (Moderna) 06/24/2021 Covid-19, Mrna, Lnp-s, Pf, B ivalent, 30 Mcg, IM, 12 yrs and above (Pfizer) 03/09/2022 DTaP Dipth/Tet/Acell Pertussis (Infanrix), Peds 11/22/2004 PPD 05/27/2009 Pneumococcal Conjugate Vacc, 13 Valent (Prevnar) 12/23/2014 Pneumococcal Conjugate Vacci ne, 20-valent ([id number]) 11/08/2023 Pneumococcal Polysaccharide PPV23 (Pneumovax) 08/13/2013 Season [...] No 02/23/2023 Does the household have a unm hospitallar source of income? 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 Answer Date of Assessment Author No 01/07/2015 3:00 PM Fabio Parikh, OSWALDO * Are you blind or do you have serious difficulty seeing, even when wearing glasses? Answer Date of Assessment Author Yes 01/07/2015 3:00 PM EST [place] rgaret A, [place] * Do you have serious difficulty walking or climbing stairs? (5 years old or older) Answer Date of Assessment Author Yes 01/07/2015 3:00 PM RIVER Albarado Ma maxime Nascimento, OSWALDO * Do you have difficulty dressing or bathing? (5 years old or older) Answer Date of Assessment Author No 01/07/2015 3:00 PM RIVER Albarado Ma yanit A, OSWALDO * Because of a physical, mental, or emotional condition, do you have difficulty doing errands alone such as visiting a doctors office or shopping? (15 years old or older) Answer Date of Assessment Author No 01/07/2015 3:00 PM RIVER Albarado Ma yanit A, OSWALDO documented as of this encounter Mental Status * Because of a physical, mental, or emotional condition, do you have serious difficulty concentrating, remembering, or making decisions? (5 years old or older) Answer Entry Date Author Yes 01/07/2015 3:00 PM RIVER Fabio Albarado maxime Nascimento, OSWALDO documented in this encounter Miscellaneous Notes * Telephone Encounter - Nathan Gandhi DO - 01/03/2024 11:15 AM ESTSigned Prescriptions: Disp Refills Baclofen 10 MG Oral Tablet (Lioresal) 600 Ta*1 Sig: TAKE TWO TABLETS BY MOUTH EVERY MORNING TWO TABLETS AT NOON AND TWO TABLETS BEFORE BEDTIME Authorizing Provider: NATHAN GANDHI * Telephone Encounter - Tasha Dorsey [facility] - 01/03/2024 10:44 AM ESTPending Prescriptions: Disp Refills Baclofen 10 MG Oral Tablet (Lioresal) 600 Ta*1 Sig: TAKE TWO TABLETS BY MOUTH EVERY MORNING TWO TABLETS AT NOON AND TWO TABLETS BEFORE BEDTIME * Telephone Encounter - Tasha Dorsey RPh - 01/03/2024 10:43 AM EST [facility] is currently not authorized to approve refills for the pended medication(s) per refill protocol. Please approve if appropriate. Thanks, Tasha Dorsey, PharmD Clinical Pharmacist [facility] Services ([facility]) [phone] 01/03/2024, 10:43 AM * Telephone Encounter - Tasha Dorsey RPh - 01/03/2024 10:43 AM EST Pending Prescriptions: Disp Refills Baclofen 10 MG Oral Tablet (Lioresal) 600 Ta*1 Sig: TAKE TWO TABLETS BY MOUTH EVERY MORNING TWO TABLETS AT NOON AND TWO TABLETS BEFORE BEDTIME Last Visit: 11/08/2023 (in office), 08/19/2023 (telemedicine) Next Visit: 01/13/2024 If no future appointments scheduled, and last appointment is greater than a year ago, please schedule patient for a follow-up appointment Last date the medication was ordered: 06/08/23 Pharmacy: [facility] Is this request for a controlled substance? No Urine Drug Screen: Results for orders placed or performed in visit on 09/26/23 PAIN MANAGEMENT DRUG PANEL, URINE W/ INTERPRETATION Result Value Compliance Interpretation Based on the medication information provided: The positive oxycodone screening result is CONSISTENT with recent oxycodone use. Confirmatory testing is available upon request. Amphetamines Screen, U Negative Benzodiazepines Screen, U Negative Cannabinoids Screen, U Negative Cocaine Metabolite Screen, U Negative Fentanyl Screen, U Negative Hydrocodone Screen, U Negative Methadone Metabolite Screen, U Negative Morphine/Codeine Screen, U Negative Oxycodone Screen, U Positive (A) Valid Interpretation Normal Creatinine, U 69 Narrative Cutoff Concentrations: Drug Level Amphetamines 500 ng/mL Benzodiazepines 100 ng/mL Cannabinoids 50 ng/mL Cocaine Metabolite 150 ng/mL Fentanyl 1 ng/mL Hydrocodone / Hydromorphone 300 ng/mL Methadone Metabolite 100 ng/mL Morphine / Codeine 300 ng/mL Oxycodone / Oxymorphone 100 ng/mL Screening results are presumptive and can only be used for medical purposes. Confirmatory testing is available upon request. *Note: Due to a large number of results and/or encounters for the requested time period, some results have not been displayed. A complete set of results can be found in Results Review. Patient Phone Numbers Labs: Lab Results Component Value Date/Time CREAT 1.2 10/17/2023 03:56 PM CREAT 0.92 10/16/2021 12:00 AM CREAT 1.0 02/27/2020 01:04 PM POTASSIUM 4.2 10/17/2023 03:56 PM POTASSIUM 4.0 10/16/2021 12:00 AM POTASSIUM 4.1 02/27/2020 01:04 PM TSH 0.563 10/08/2021 12:00 AM TSH 1.20 10/10/2014 11:45 AM LDL 73 01/11/2023 02:20 PM LDL 103 06/13/2019 10:28 AM ALT <5 (L) 09/26/2023 03:37 PM ALT 14 02/27/2020 01:04 PM HGBA1C 5.5 02/23/2023 04:20 PM documented in this encounter Plan of Treatment Upcoming Encounters Date Type Department Care Team (Late st Contact Info) Description 01/03/2024 2:50 PM EST Office Visit Dermatology, [facility] [address] [place] [address] Tiffanie Horner PA-C [address] [place] [address] 01/10/2024 1:30 PM EST Office Visit Cardiology, [facility] [address] [place] [phone] Laney Flores PA-C [address] [place] [address] 01/13/2024 3:00 PM EST Office Visit Family Practice [address], [place] 293 [place] [address] Nathan Gandhi DO [address] [place] [address] 02/24/2024 10:15 AM EST Imaging Radiology [facility] 1st [facility] 132 [facility] [place] [address] 02/29/2024 10:50 AM EST Office Visit Vascular Surgery, [facility] 132 [facility] [place] [address] Gordo Arreola MD [address] [place] [address] 03/20/2024 11:00 AM EST Office Visit Gastroenterology, [facility] 132 [place] [address] Jerome De La Cruz CRNP 132 [facility] [place] [address] 03/29/2024 2:30 PM EST Office Visit Hematology/Oncology [facility] 200 [facility] [place] [phone] Derick Conde MD 200 [facility] [place] [address] Scheduled Procedures Name Priority Associated Diagnoses Date/Ti me COLONOSCOPY FLEXIBLE PROXIMA L DIAGNOSTIC Recall Encounter for screening colonoscopy Health Maintenance Due Date Last Done Comments Adult Wellness Visit 07/04/2009 Colonoscopy 12/06/2023 12/05/2018, 11/21, 05/23/2008 Depression Screening 02/24/2024 02/23/2023 GFR 10/16/2024 10/17/2023, 08/0 06/2023, 08/18/2023, Additional history exists Albumin/Creatinine Ratio 01/11/2025 01/11/2022 DXA Scan 08/08/2025 08/09/2023, 07/22, 09/23/2020, Additional history exists DTap/Tdap Vaccines (4 - Td or Tdap) 01/30/2029 01/30/2019, 11/19/2008, 11/22/2004 RETIRED - COLONOSCOPY-EVERY 5 YRS AGES 18-100 Discontinued 12/05/2018, 12/05/2018, 05/23/2008 Zoster Vaccines Completed 01/18/2020, 11/17/2019 VITAMIN D LEVEL ONCE IN A LIFETIME-USE SMARTSET# [id number] Completed 10/03/2020, 06/03/2020 COVID-19 Vaccine Completed 11/08/2023, [...] Not on filedocumented as of this encounter Advance Directives Healthcare Agents on File Name Relationship Healthcare Agent [facility] Communication Sherry Romero Spouse Health Care Power of Attorne y Care Teams Gas Station Attendant Relationship Specialty Start Date End Date Nathan Gandhi DO [address] [place] [address] PCP - General Internal Medicine 08/18/23 documented as of this encounter
--- OUTSIDE RECORDS SUMMARY | 2024-01-13 23:40 | External Medical Summary | Summary of Care ---
Author Name Unknown Organization [facility] Address [address] [place] [address] Phone [phone] Care Team Providers Care Director Of Enrollment Name Role Phone Clifford Gandhi DO Primary Care Provider [phone] Encounter Details Date Type Department Care Team (Latest Contact Info) Description 01/03/2024 3:03 PM EST - 01/03/2024 11:59 PM EST Hospital Encounter Radiology Film File [address] [place] [address] Arrived Discharge Disposition: Home - Self Care Allergies Active Allergy Reactions Criticality Noted Date [...] 9:52 AM EDT 04/26/19 24 Active Ipratropium [place] 0.03 % Nasal Solution (Atrovent) Administer 2 [...] (Prevnar) 12/23/2014 Pneumococcal Conjugate Vacci ne, 20-valent ([id number]) 11/08/2023 Pneumococcal Polysaccharide PPV23 (Pneumovax) 08/13/2013 Season [...] 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 Answer Date of Assessment Author No 01/07/2015 3:00 PM Fabio Parikh A, OSWALDO * Are you blind or do you have serious difficulty seeing, even when wearing glasses? Answer Date of Assessment Author Yes 01/07/2015 3:00 PM Fabio Parikh, OSWALDO * Do you have serious difficulty walking or climbing stairs? (5 years old or older) Answer Date of Assessment Author Yes 01/07/2015 3:00 PM Fabio Parikh, OSWALDO * Do you have difficulty dressing or bathing? (5 years old or older) Answer Date of Assessment Author No 01/07/2015 3:00 PM EST Per, Ma rgaret A, OSWALDO * Because of a physical, mental, or emotional condition, do you have difficulty doing errands alone such as visiting a doctors office or shopping? (15 years old or older) Answer Date of Assessment Author No 01/07/2015 3:00 PM EST Fabio Albarado, OSWALDO documented as of this encounter Mental Status * Because of a physical, mental, or emotional condition, do you have serious difficulty concentrating, remembering, or making decisions? (5 years old or older) Answer Entry Date Author Yes 01/07/2015 3:00 PM EST Fabio Albarado, OSWALDO documented in this encounter Plan of Treatment Upcoming Encounters Date Type Department Care Team (Late st Contact Info) Description 01/10/2024 1:30 PM EST Office Visit Cardiology, [facility] [address] [facility] [place] [address] [address] Flores, DWAY[place] [address] [facility] [place] [address] 01/13/2024 3:00 PM EST Office Visit Family Practice [address] [facility] [address] [place] [address] Clifford Gandhi, [address] [place] [address] 02/24/2024 10:15 AM EST Imaging Radiology [facility] [address] [facility] [place] [address] 02/29/2024 10:50 AM EST Office Visit Vascular Surgery, [facility] [address] [facility] [place] [address] Gordo Arreola MD [address] [place] [address] 03/20/2024 11:00 AM EST Office Visit Gastroenterology, [facility] [address] [facility] [place] [address] Jerome De La Cruz CRNP [address] [place] [address] 03/29/2024 2:30 PM EST Office Visit Hematology/Oncology [facility] [place] [address] [facility] [place] [address] Derick Conde MD [address] [facility] [place] [address] Scheduled Procedures Name Priority Associated Diagnoses Date/Ti [...] D LEVEL ONCE IN A LIFETIME-USE SMARTSET# 13782 Completed 10/03/2020, 06/03/2020 COVID-19 Vaccine Completed 11/08/2023, [...] study not interpreted or resulted by a [facility] or [facility] contracted radiologist. Tiffanie Horner PA-C RADIOLOGY (RAD GENERAL) Final Result documented in this encounter Advance Directives Healthcare Agents on File Name Relationship Healthcare Agent Relationshi p Communication Sherry Romero Spouse Health Care Power of Attorne y Care Teams Director Of Enrollment Relationship Specialty Start Date End Date Cilfford Gandhi DO [address] [place] [address] PCP - General Internal Medicine 08/18/23 documented as of this encounter
[2024-01-14 06:47] LABS: Hematocrit (blood only) 38.9 % (42.0-52.0); Hemoglobin 12.7 g/dl (14.0-18.0); Mean Corpuscular Hemoglobin 26.9 pg (25.0-34.0); Mean Corpuscular Hgb Conc 32.6 g/dL (32.0-36.0); Mean Corpuscular Volume 82.4 fL (80.0-100.0); Mean Platelet Volume 9.7 fL (9.4-12.4); Platelet Count 149 K/uL (130-400); RDW Coefficient of Variation 14.6 % (11.5-14.5); Red Blood Count 4.72 M/uL (4.70-6.10); White Blood Count 10.71 K/ul (4.8-10.8)
--- NOTE | 2024-01-14 07:12 | Hospitalist Progress Note ---
Date of Service January 14, 2024 Assessment & Plan (1) AMS (altered mental status): Plan: Mr. Romero is an 78-year-old male with past medical history significant for dyslipidemia, hypertension, peripheral vascular disease, infrarenal abdominal aortic aneurysm, saccular aneurysm, persistent atrial fibrillation, GERD, gastroparesis, drug-induced constipation, prostate cancer, polymyalgia rheumatica, tremor of right hand, osteoporosis, lumbar radiculopathy, failed back syndrome, status post neurostimulator in the back, bilateral open-angle glaucoma moderate stage, polyneuropathy, anemia, monoclonal paraproteinemia, history of bladder cancer, history of pulmonary embolism status post IVC filter, primary insomnia who lives at home with his and ambulates with a walker who was admitted 01/12 for acute metabolic encephalopathy and acute illness with un clear eitology. Patient with cat scratch reported a "few weeks ago" and a small right medial ankle ulcer followed by wound care/podiatry. Infectious disease consulted: MRI completed, no sign of infection around neurostimulator. Per ID recommendedations, will hold abx and monitor progress as no clear etiology #Acute toxic metabolic encephalopathy, iso acute illness #Immunocompromised 2/[address] head, CTA head and neck unremarkable CT abdomen and pelvis and CT chest unremarkable except for abdominal aneurysm. Bio fire negative, Lactate 1.1 Drug screen positive for opiates screen, chronic use UA unremarkable Procalcitonin 1.6 TSH normal WBC 20 on admission, TMAX24 37.8 since admission (1800 01/12) Delirium precautions Infectious disease consulted: Lumbar MRI negative for vertebral om Hold abx 01/10 blood cultures negative to date #hypokalemia replace Po repeat bmp in am #Cat scratch superficial, cultures negative, hold as above local wound care #Possible cellulitis of left lower extremity changes appear chronic on lower extremities local wound care #History of PE and DVT On Xarelto Status post IVC filter #Persistent l A-fib On Xarelto Metoprolol with holding parameters #Polymyalgia rheumatica brief steroids, however, no sepsis, will d/c and resume pred 5 #Infrarenal abdominal aneurysm #Saccular aneurysm Seems increasing Needs close follow-up with vascular surgery as OP Last visit Feb 2023 #Hypertension Metoprolol and lisinopril with holding parameters Will hold Lasix, resume in next 1-2 days #GERD On famotidine #Failed back syndrome Neurostimulator in the back resume medications as able #Bilateral open-angle glaucoma moderate stage Continue eyedrops #nonmuscle invasive bladder cancer Status post TURBT in June 2016 #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 Under observation with heme-onc DVT prophylaxis On Xarelto Disposition Telemetry floor CODE STATUS full code as per discussion with and daughter if there is chance of recovery. Admission and Anticipated Discharge Date Admission Date: January 13, 2024 Subjective NAEO denies feeling febrile or other acute concerns urinating well, eating well, sitting in bedside chair Reports back pain is mostly exacerbating in transitions but stable once sitting upright or laying flat denies cough, sob, chest pain, palpitations or other acute concerns Physical Exam Constitutional: WD/WN, vitals as above Respiratory: normal respiratory effort, lungs clear to auscultation Cardiovascular: irregularly irregular Results & Data Results & Data Vital Signs (Past 12 Hours) Vital Signs Temp Pulse Resp BP BP Pulse Ox O2 Del Method 01/14/24 04:38 37.1 C 83 18 165/111 H 95 Room Air 01/13/24 23:39 37.2 C 107 H 18 157/117 H 93 Room Air 01/13/24 20:00 Room Air 01/13/24 19:55 37.7 C H 107 H 19 149/96 H 94 Room Air Laboratory Results Short CBC 01/13/24 01/14/24 Range/Units 06:44 06:19 WBC 14.89 H 10.71 (4.8-10.8) K/ul Hgb 12.3 L 12.7 L (14.0-18.0) g/dl Hct 38.7 L 38.9 L (42.0-52.0) % Plt Count 140 149 (130-400) K/uL BMP 01/13/24 06:44 Sodium 144 Potassium 3.6 Chloride 113 H Carbon Dioxide 25 BUN 31 H Creatinine 0.81 D Glucose 111 H Calcium 8.2 L Diagnostic Findings Lumbar Spine MRI 01/13/24 13:22 Exam(s): MRI L SPINE W/WO Contrast IV Amt: 6.5ml gadavist EXAM: MR Lumbar Spine Without and With Intravenous Contrast CLINICAL HISTORY: Reason for exam: r/o vertebral osteo. TECHNIQUE: Magnetic resonance images of the lumbar spine without and with intravenous contrast in multiple planes. CONTRAST: Patient received 6.5ml gadavist of IV contrast COMPARISON: Comparison made to CT scan of the abdomen pelvis from January 12, 2024. FINDINGS: The study is limited secondary to metallic artifact from cord stimulator. Vertebrae: There are 5 lumbar type vertebral bodies with an advanced levoscoliosis and shallow lumbar lordosis. There is normal vertebral body height and alignment. The bone marrow signal is heterogeneous with reactive endplate changes. Patient is status post posterior decompression of L3, L4 and L5. No acute fracture. There is mild bilateral sacroiliac joint arthropathy. There is a cord stimulator entering the dorsal epidural space at the level of T10-11 Spinal cord: The conus is normal size, shape and signal characteristics, terminating at T12-L1. No abnormal enhancement. Soft tissues: Advanced atrophy of the iliopsoas, paraspinous intraspinous musculature. Bilateral renal cyst. There is a cord stimulator battery pack in the left buttocks. DISCS/SPINAL CANAL/NEURAL FORAMINA: L1-L2: There is ankylosis of the segments. L2-L3: Advanced disc degeneration with posterior disc osteophyte complex asymmetric to the left causing a mild left subarticular recess stenosis. There is disc and osteophyte extend to the neural foramina causing a mild right stenosis without evidence of neural impingement. L3-L4: Advanced disc degeneration with posterior disc osteophyte complex flattening the ventral thecal sac with disc and osteophyte extending to the neural foramina causing a mild right and moderate left stenosis with mild impingement of the left L3 nerve root. L4-L5: Advanced disc degeneration with posterior disc osteophyte complex causing a mild subarticular recess stenosis. There is disc and osteophyte extending to the neural foramina causing a moderately severe bilateral stenosis with impingement of the L4 nerve root and ganglia. L5-S1: There is ankylosis across the segments. There is marginal osteophyte extending to the neural foramina causing a moderate right and severe left stenosis with impingement of the L5 nerve root ganglia. IMPRESSION: No evidence of acute lumbar spine pathology. No evidence of disc or vertebral osteomyelitis. Electronically signed by: Lamar Barton MD 01/13/24 23:54 PM Medications Administered Home Medications Medication Instructions Recorded Confirmed Last Taken dorzolamide 22.3 mg-timolol 6.8 1 drp OPB BID #10 mL 10/22/21 01/12/24 01/12/24 mg/mL eye drops am travoprost 0.004 % eye drops 1 drp OPB HS #5 mL 10/22/21 01/12/24 01/11/24 (Travatan Z) diclofenac sodium 1 % topical gel 2 g topical UD PRN THUMB ARTHRITIS 03/17/22 01/12/24 Unknown famotidine 20 mg tablet 20 mg PO HS 03/17/22 01/12/24 01/11/24 oxycodone 10 mg tablet 10 mg PO QID pain 03/17/22 01/12/24 01/12/24 1200 polyethylene glycol 3350 17 gram 17 g PO UD PRN Constipation 03/17/22 01/12/24 Unknown oral powder packet (Miralax) rivaroxaban 20 mg tablet (Xarelto) 20 mg PO QDD 03/17/22 01/12/24 01/11/24 baclofen 10 mg tablet See Rx Instructions .Route .COMPLEX 01/18/23 01/12/24 01/12/24 1200 brimonidine 0.2 % eye drops 1 drp OPL BID 01/18/23 01/12/24 01/12/24 am docusate sodium 100 mg capsule 100 mg PO QDL Constipation 01/18/23 01/12/24 01/12/24 fluticasone propionate 50 2 spray intranasal QAM 01/18/23 01/12/24 01/12/24 mcg/actuation nasal spray,suspension ipratropium bromide 21 mcg (0.03 2 spray intranasal HS 01/18/23 01/12/24 01/11/24 %) nasal spray alfuzosin 10 mg tablet,extended 10 mg PO QDD 03/04/23 01/12/24 01/11/24 release 24 hr gabapentin 100 mg capsule 100 mg PO QAM 03/04/23 01/12/24 01/12/24 am gabapentin 100 mg capsule 300 mg PO HS 03/04/23 01/12/24 01/11/24 multivitamin 1 tab PO QDL 03/04/23 01/12/24 01/12/24 abiraterone 250 mg tablet (Zytiga) 1,000 mg PO DAILYBB 01/12/24 01/12/24 01/12/24 acetaminophen 500 mg tablet 500 mg PO TID 01/12/24 01/12/24 01/12/24 am furosemide 20 mg tablet 20 mg PO QAM 01/12/24 01/12/24 01/12/24 lisinopril 5 mg tablet 5 mg PO QAM 01/12/24 01/12/24 01/12/24 metoprolol succinate 25 mg 50 mg PO AMHS 01/12/24 01/12/24 01/12/24 tablet,extended release 24 hr am (Toprol XL) prednisone 5 mg tablet 5 mg PO DAILYBB 01/12/24 01/12/24 01/12/24 Active Medications Generic Name Dose Route Start Last Admin Trade Name Freq PRN Reason Stop Dose Admin Acetaminophen 1,000 mg 01/13/24 14:36 01/14/24 04:06 Acetaminophen 500 Mg Tab PO 02/12/24 14:35 1,000 mg Q8H PRN Administration Pain or Fever Baclofen 10 mg 01/13/24 14:45 01/13/24 15:52 Baclofen 10 Mg Tab PO 02/12/24 14:44 Not Given BIDM MEMO Baclofen 20 mg 01/13/24 21:00 01/13/24 20:04 Baclofen 20 Mg Tab PO 02/12/24 20:59 20 mg TODAY@1200,2100 MEMO Administration Brimonidine Tartrate 1 drops 01/13/24 09:00 01/13/24 20:04 Brimonidine Tartrate 0.2% 5ml OPL 02/12/24 08:59 1 drops BID MEMO Administration Docusate Sodium 100 mg 01/13/24 11:30 01/13/24 11:19 Docusate Sodium 100 Mg Cap PO 02/12/24 11:29 100 mg QDL MEMO Administration Dorzolamide/Timolol 1 drops 01/13/24 09:00 01/13/24 20:05 Dorzolamide/Timolol 22.3/6.8mg/Ml 10 Ml Btl OPB 02/12/24 08:59 1 drops BID MEMO Administration Famotidine 20 mg 01/13/24 21:00 01/13/24 20:04 Famotidine 20 Mg Tab PO 02/12/24 20:59 20 mg HS MEMO Administration Fluticasone Propionate 2 sprays 01/13/24 09:00 01/13/24 08:26 Fluticasone Propionate Na Spr 16 Gm Btl NA 02/12/24 08:59 2 sprays QAM MEMO Administration Gabapentin 300 mg 01/13/24 21:00 01/13/24 20:04 Gabapentin 300 Mg Cap PO 02/12/24 20:59 300 mg HS MEMO Administration Cefepime HCl 2,000 mg in 20 mls @ 5 mls/min 01/13/24 08:00 01/13/24 19:50 Maxipime 2000mg IV 01/20/24 07:59 5 mls/min Q12H MEMO Administration Protocol Vancomycin HCl 1,250 mg/ 275 mls @ 200 mls/hr 01/13/24 08:00 01/13/24 09:08 Dextrose IV 01/20/24 07:59 Infused Q24H MEMO Infusion Hydrocortisone Sodium 0.5 mls @ 4 mls/min 01/13/24 21:00 01/13/24 20:04 Succinate 25 mg/ Syringe IV 02/12/24 20:59 4 mls/min BID EMMO Administration Ipratropium [place] 1 sprays 01/13/24 21:00 01/13/24 20:04 Ipratropium [place] Nasal [place] 0.06% 15ml BEATRICE 02/12/24 20:59 1 sprays HS MEMO Administration Metoprolol Succinate 50 mg 01/13/24 09:00 01/13/24 20:04 Metoprolol Succ 50mg Ext Rel Tab PO 02/12/24 08:59 50 mg AMHS MEMO Administration Multivitamins 1 tab 01/13/24 11:30 01/13/24 11:18 Multivitamin Tab PO 02/12/24 11:29 1 tab QDL MEMO Administration Rivaroxaban 20 mg 01/13/24 16:30 01/13/24 15:48 Rivaroxaban 20 Mg Tab PO 02/12/24 16:29 20 mg QDD MEMO Administration Tamsulosin HCl 0.4 mg 01/13/24 16:30 01/13/24 15:48 Tamsulosin Hcl 0.4 Mg Cap PO 02/12/24 16:29 0.4 mg QDD MEMO Administration Travoprost 1 drops 01/13/24 21:00 01/13/24 20:05 Travoprost Z 0.004% Oph Soln 2.5 Ml Btl OPB 02/12/24 20:59 1 drops HS MEMO Administration
[2024-01-14 07:31] LABS: BUN Creatinine Ratio 44.2 (10-20); Calcium 8.2 mg/dl (8.6-10.3); Creatinine Clr Calc Pharmacy 66.6 ml/min; Magnesium 1.8 mg/dl (1.7-2.4); Phosphorus 2.5 mg/dl (2.5-4.9); Potassium 2.9 mmol/L (3.5-5.1)
[2024-01-14] MEDS ORDERED: AZITHROMYCIN 250 MG TAB PO SCH (09:00)
[2024-01-14] MEDS: GABAPENTIN 100 MG CAP PO SCH (09:34)
[2024-01-14] MEDS: lisinopril 10 MG TAB PO SCH (09:34)
[2024-01-14] MEDS: POTASSIUM CHLORIDE CRTAB 20 MEQ TABCR PO SCH (09:38)
--- NOTE | 2024-01-14 12:29 | Magnetic Resonance Report ---
Exam(s): MRI L SPINE W/WO Contrast IV Amt: 6.5ml gadavist EXAM: MR Lumbar Spine Without and With Intravenous Contrast CLINICAL HISTORY: Reason for exam: r/o vertebral osteo. TECHNIQUE: Magnetic resonance images of the lumbar spine without and with intravenous contrast in multiple planes. CONTRAST: Patient received 6.5ml gadavist of IV contrast COMPARISON: Comparison made to CT scan of the abdomen pelvis from January 12, 2024. FINDINGS: The study is limited secondary to metallic artifact from cord stimulator. Vertebrae: There are 5 lumbar type vertebral bodies with an advanced levoscoliosis and shallow lumbar lordosis. There is normal vertebral body height and alignment. The bone marrow signal is heterogeneous with reactive endplate changes. Patient is status post posterior decompression of L3, L4 and L5. No acute fracture. There is mild bilateral sacroiliac joint arthropathy. There is a cord stimulator entering the dorsal epidural space at the level of T10-11 Spinal cord: The conus is normal size, shape and signal characteristics, terminating at T12-L1. No abnormal enhancement. Soft tissues: Advanced atrophy of the iliopsoas, paraspinous intraspinous musculature. Bilateral renal cyst. There is a cord stimulator battery pack in the left buttocks. DISCS/SPINAL CANAL/NEURAL FORAMINA: L1-L2: There is ankylosis of the segments. L2-L3: Advanced disc degeneration with posterior disc osteophyte complex asymmetric to the left causing a mild left subarticular recess stenosis. There is disc and osteophyte extend to the neural foramina causing a mild right stenosis without evidence of neural impingement. L3-L4: Advanced disc degeneration with posterior disc osteophyte complex flattening the ventral thecal sac with disc and osteophyte extending to the neural foramina causing a mild right and moderate left stenosis with mild impingement of the left L3 nerve root. L4-L5: Advanced disc degeneration with posterior disc osteophyte complex causing a mild subarticular recess stenosis. There is disc and osteophyte extending to the neural foramina causing a moderately severe bilateral stenosis with impingement of the L4 nerve root and ganglia. L5-S1: There is ankylosis across the segments. There is marginal osteophyte extending to the neural foramina causing a moderate right and severe left stenosis with impingement of the L5 nerve root ganglia. IMPRESSION: No evidence of acute lumbar spine pathology. No evidence of disc or vertebral osteomyelitis. Electronically signed by: Lamar Barton MD 01/13/24 23:54 PM
[2024-01-14] MEDS: oxyCODONE HCL IR 5 MG TAB (IMMEDIATE RELEASE) PO PRN (15:00)
[2024-01-15] MEDS: DICLOFENAC SOD 1% GEL 100 GM TUBE EXT PRN (04:31)
[2024-01-15] MEDS: predniSONE 5 MG TAB PO SCH (05:26)
[2024-01-15 07:36] LABS: Hematocrit (blood only) 36.9 % (42.0-52.0); Hemoglobin 12.1 g/dl (14.0-18.0); Mean Corpuscular Hemoglobin 27.1 pg (25.0-34.0); Mean Corpuscular Hgb Conc 32.8 g/dL (32.0-36.0); Mean Corpuscular Volume 82.6 fL (80.0-100.0); Platelet Count 156 K/uL (130-400); RDW Coefficient of Variation 14.7 % (11.5-14.5); RDW Standard Deviation 44.6 fL (36.4-46.3); Red Blood Count 4.47 M/uL (4.70-6.10); White Blood Count 8.35 K/ul (4.8-10.8)
[2024-01-15 07:52] LABS: BUN Creatinine Ratio 38.6 (10-20); Calcium 8.2 mg/dl (8.6-10.3); Creatinine Clr Calc Pharmacy 61.7 ml/min; Potassium 4.1 mmol/L (3.5-5.1)
[2024-01-15] MEDS ORDERED: VANCOMYCIN HCL 1,250 MG in SODIUM CHLORIDE 0.9% 250 ML IV SCH (08:00)
--- NOTE | 2024-01-15 10:43 | Hospitalist Progress Note ---
Date of Service January 15, 2024 Assessment & Plan (1) AMS (altered mental status): Plan: Mr. Romero is an 78-year-old male with past medical history significant for dyslipidemia, hypertension, peripheral vascular disease, infrarenal abdominal aortic aneurysm, saccular aneurysm, persistent atrial fibrillation, GERD, gastroparesis, drug-induced constipation, prostate cancer, polymyalgia rheumatica, tremor of right hand, osteoporosis, lumbar radiculopathy, failed back syndrome, status post neurostimulator in the back, bilateral open-angle glaucoma moderate stage, polyneuropathy, anemia, monoclonal paraproteinemia, history of bladder cancer, history of pulmonary embolism status post IVC filter, primary insomnia who lives at home with his and ambulates with a walker who was admitted 01/12 for acute metabolic encephalopathy and acute illness with un clear eitology. Patient with cat scratch reported a "few weeks ago" and a small right medial ankle ulcer followed by wound care/podiatry. Infectious disease consulted: MRI completed, no sign of infection around neurostimulator. Per ID recommendations, antibiotics held 01/13, last dose #Acute toxic metabolic encephalopathy, iso acute illness #Immunocompromised 2/[address] head, CTA head and neck unremarkable CT abdomen and pelvis and CT chest unremarkable except for abdominal aneurysm. Bio fire negative, Lactate 1.1 Drug screen positive for opiates screen, chronic use UA unremarkable Procalcitonin 1.6 TSH normal WBC 20 on admission, TMAX24 37.8 since admission (1800 01/12) OBTAINED from [facility] Delirium precautions Infectious disease consulted: Lumbar MRI negative for vertebral om Hold abx as of 01/13 01/10 blood cultures negative to date #hypokalemia replace Po repeat bmp in am, stable #Cat scratch superficial, cultures negative, hold as above local wound care #Possible cellulitis of left lower extremity changes appear chronic on lower extremities local wound care #History of PE and DVT On Xarelto Status post IVC filter #Persistent l A-fib On Xarelto Metoprolol with holding parameters #Polymyalgia rheumatica brief steroids, however, no sepsis, will d/c and resume pred 5 #Infrarenal abdominal aneurysm #Saccular aneurysm Seems increasing Needs close follow-up with vascular surgery as OP Last visit Feb 2023 #Hypertension Metoprolol and lisinopril with holding parameters Will hold Lasix, resume in next 1-2 days #GERD On famotidine #Failed back syndrome Neurostimulator in the back resume medications as able #Bilateral open-angle glaucoma moderate stage Continue eyedrops #nonmuscle invasive bladder cancer Status post TURBT in June 2016 #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 Under observation with heme-onc DVT prophylaxis On Xarelto Disposition Telemetry floor CODE STATUS full code as per discussion with and daughter if there is chance of recovery. Admission and Anticipated Discharge Date Admission Date: January 13, 2024 Subjective NAEO Reports some diarrhea since yesterday but otherwise feeling much better and moving near his baseline Denies any localizing symptoms or concerns No clear source for presentation--off abx now over 24 hours, patient agrees to stay inpatient for additional 24 hours for monitoring Of note--Temperatures are being collected from [facility], not febrile Physical Exam Constitutional: WD/WN, vitals as above Respiratory: normal respiratory effort, lungs clear to auscultation Cardiovascular: irregularly irregular Gastrointestinal (Abdomen): normal bowel sounds, soft, nontender, no hepatosplenomegaly Results & Data Results & Data Vital Signs (Past 12 Hours) Vital Signs Temp Pulse Resp BP Pulse Ox O2 Del Method 01/15/24 07:22 37.5 C 85 16 152/108 H 94 Room Air 01/15/24 04:23 37.4 C 83 18 142/87 H 95 Room Air 01/15/24 00:47 Room Air 01/15/24 00:34 37.5 C 85 20 145/102 H 85 L Room Air Laboratory Results Short CBC 01/15/24 Range/Units 06:54 WBC 8.35 (4.8-10.8) K/ul Hgb 12.1 L (14.0-18.0) g/dl Hct 36.9 L (42.0-52.0) % Plt Count 156 (130-400) K/uL BMP 01/15/24 06:54 Sodium 142 Potassium 4.1 D Chloride 114 H Carbon Dioxide 22 BUN 32 H Creatinine 0.83 Glucose 97 Calcium 8.2 L Medications Administered Home Medications Medication Instructions Recorded Confirmed Last Taken dorzolamide 22.3 mg-timolol 6.8 1 drp OPB BID #10 mL 10/22/21 01/12/24 01/12/24 mg/mL eye drops am travoprost 0.004 % eye drops 1 drp OPB HS #5 mL 10/22/21 01/12/24 01/11/24 (Travatan Z) diclofenac sodium 1 % topical gel 2 g topical UD PRN THUMB ARTHRITIS 03/17/22 01/12/24 Unknown famotidine 20 mg tablet 20 mg PO HS 03/17/22 01/12/24 01/11/24 oxycodone 10 mg tablet 10 mg PO QID pain 03/17/22 01/12/24 01/12/24 1200 polyethylene glycol 3350 17 gram 17 g PO UD PRN Constipation 03/17/22 01/12/24 Unknown oral powder packet (Miralax) rivaroxaban 20 mg tablet (Xarelto) 20 mg PO QDD 03/17/22 01/12/24 01/11/24 baclofen 10 mg tablet See Rx Instructions .Route .COMPLEX 01/18/23 01/12/24 01/12/24 1200 brimonidine 0.2 % eye drops 1 drp OPL BID 01/18/23 01/12/24 01/12/24 am docusate sodium 100 mg capsule 100 mg PO QDL Constipation 01/18/23 01/12/24 01/12/24 fluticasone propionate 50 2 spray intranasal QAM 01/18/23 01/12/24 01/12/24 mcg/actuation nasal spray,suspension ipratropium bromide 21 mcg (0.03 2 spray intranasal HS 01/18/23 01/12/24 01/11/24 %) nasal spray alfuzosin 10 mg tablet,extended 10 mg PO QDD 03/04/23 01/12/24 01/11/24 release 24 hr gabapentin 100 mg capsule 100 mg PO QAM 03/04/23 01/12/24 01/12/24 am gabapentin 100 mg capsule 300 mg PO HS 03/04/23 01/12/24 01/11/24 multivitamin 1 tab PO QDL 03/04/23 01/12/24 01/12/24 abiraterone 250 mg tablet (Zytiga) 1,000 mg PO DAILYBB 01/12/24 01/12/24 01/12/24 acetaminophen 500 mg tablet 500 mg PO TID 01/12/24 01/12/24 01/12/24 am furosemide 20 mg tablet 20 mg PO QAM 01/12/24 01/12/24 01/12/24 lisinopril 5 mg tablet 5 mg PO QAM 01/12/24 01/12/24 01/12/24 metoprolol succinate 25 mg 50 mg PO AMHS 01/12/24 01/12/24 01/12/24 tablet,extended release 24 hr am (Toprol XL) prednisone 5 mg tablet 5 mg PO DAILYBB 01/12/24 01/12/24 01/12/24 Active Medications Generic Name Dose Route Start Last Admin Trade Name Freq PRN Reason Stop Dose Admin Acetaminophen 1,000 mg 01/13/24 14:36 01/15/24 04:04 Acetaminophen 500 Mg Tab PO 02/12/24 14:35 1,000 mg Q8H PRN Administration Pain or Fever Baclofen 10 mg 01/13/24 14:45 01/15/24 09:32 Baclofen 10 Mg Tab PO 02/12/24 14:44 10 mg BIDM MEMO Administration Baclofen 20 mg 01/13/24 21:00 01/14/24 21:00 Baclofen 20 Mg Tab PO 02/12/24 20:59 20 mg TODAY@1200,2100 MEMO Administration Brimonidine Tartrate 1 drops 01/13/24 09:00 01/15/24 09:33 Brimonidine Tartrate 0.2% 5ml OPL 02/12/24 08:59 1 drops BID MEMO Administration Diclofenac Sodium 2 gm 01/13/24 02:24 01/15/24 04:31 Diclofenac Sod 1% Gel 100 Gm Tube EXT 02/12/24 02:23 2 gm BID PRN Administration THUMB ARTHRITIS Protocol Docusate Sodium 100 mg 01/13/24 11:30 01/14/24 11:53 Docusate Sodium 100 Mg Cap PO 02/12/24 11:29 100 mg QDL MEMO Administration Dorzolamide/Timolol 1 drops 01/13/24 09:00 01/15/24 09:33 Dorzolamide/Timolol 22.3/6.8mg/Ml 10 Ml Btl OPB 02/12/24 08:59 1 drops BID MEMO Administration Famotidine 20 mg 01/13/24 21:00 01/14/24 21:00 Famotidine 20 Mg Tab PO 02/12/24 20:59 20 mg HS MEMO Administration Fluticasone Propionate 2 sprays 01/13/24 09:00 01/15/24 09:33 Fluticasone Propionate Na Spr 16 Gm Btl NA 02/12/24 08:59 2 sprays QAM MEMO Administration Gabapentin 100 mg 01/14/24 09:00 01/15/24 09:33 Gabapentin 100 Mg Cap PO 02/13/24 08:59 100 mg QAM MEMO Administration Gabapentin 300 mg 01/13/24 21:00 01/14/24 21:00 Gabapentin 300 Mg Cap PO 02/12/24 20:59 300 mg HS MEMO Administration Ipratropium [place] 1 sprays 01/13/24 21:00 01/14/24 21:00 Ipratropium [place] Nasal [place] 0.06% 15ml BEATRICE 02/12/24 20:59 1 sprays HS MEMO Administration Lisinopril 10 mg 01/14/24 09:00 01/15/24 09:34 Lisinopril 10 Mg Tab PO 02/13/24 08:59 10 mg QAM MEMO Administration Metoprolol Succinate 50 mg 01/13/24 09:00 01/15/24 09:34 Metoprolol Succ 50mg Ext Rel Tab PO 02/12/24 08:59 50 mg AMHS MEMO Administration Multivitamins 1 tab 01/13/24 11:30 01/14/24 11:53 Multivitamin Tab PO 02/12/24 11:29 1 tab QDL MEMO Administration Oxycodone HCl 10 mg 01/14/24 11:21 01/14/24 23:32 Oxycodone Hcl Ir 5 Mg Tab (Immediate Release) PO 01/28/24 11:20 10 mg Q8H PRN Administration severe pain Potassium Chloride 40 meq 01/14/24 09:00 01/15/24 09:43 Potassium Chloride Crtab 20 Meq Tabcr PO 01/15/24 21:01 40 meq BID MEMO Administration Prednisone 5 mg 01/15/24 06:30 01/15/24 05:26 Prednisone 5 Mg Tab PO 02/14/24 06:29 5 mg DAILYBB MEMO Administration Rivaroxaban 20 mg 01/13/24 16:30 01/14/24 16:51 Rivaroxaban 20 Mg Tab PO 02/12/24 16:29 20 mg QDD MEMO Administration Tamsulosin HCl 0.4 mg 01/13/24 16:30 01/14/24 16:52 Tamsulosin Hcl 0.4 Mg Cap PO 02/12/24 16:29 0.4 mg QDD MEMO Administration Travoprost 1 drops 01/13/24 21:00 01/14/24 21:01 Travoprost Z 0.004% Oph Soln 2.5 Ml Btl OPB 02/12/24 20:59 1 drops HS MEMO Administration
[2024-01-15 13:53] LABS: Adenovirus F 40/41 PCR Not Detected (NotDetected); Astrovirus PCR Not Detected (NotDetected); Campylobacter PCR Not Detected (NotDetected); Cryptosporidium PCR Not Detected (NotDetected); Cyclospora cayetanensis PCR Not Detected (NotDetected); Entamoeba histolytica PCR Not Detected (NotDetected); Enteroaggregative E.coli(EAEC) Not Detected (NotDetected); Enteropathogenic E.coli (EPEC) Not Detected (NotDetected); Enterotoxigenic E.coli (ETEC) Not Detected (NotDetected); Giardia lamblia PCR Not Detected (NotDetected); Norovirus GI/GII PCR Not Detected (NotDetected); Plesiomonas shigelloides PCR Not Detected (NotDetected); Rotavirus A PCR Not Detected (NotDetected); Salmonella PCR Not Detected (NotDetected); Sapovirus PCR Not Detected (NotDetected); Shiga-like Toxin E.coli (STEC) Not Detected (NotDetected); Shigella/Enteroinvasive E.coli Not Detected (NotDetected); Vibrio cholerae PCR Not Detected (NotDetected); Vibrio species PCR Not Detected (NotDetected); Yersinia enterocolitica PCR Not Detected (NotDetected)
[2024-01-15 15:57] LABS: Codeine Urine NEGATIVE ng/mL (<50); Hydrocodone Urine NEGATIVE ng/mL (<50); Hydromor Urine NEGATIVE ng/mL (<50); Morphine Urine NEGATIVE ng/mL (<50); Norhydrocodone Conf Ur NEGATIVE ng/mL (<50); Noroxycodone Urine 3540 ng/mL (<50); Oxycodone Urine 794 ng/mL (<50); Oxymorph Urine 1710 ng/mL (<50)
[2024-01-16] MEDS: MELATONIN 3 MG TAB PO PRN (00:26)
[2024-01-16 08:54] LABS: Hematocrit (blood only) 39.8 % (42.0-52.0); Hemoglobin 12.8 g/dl (14.0-18.0); Mean Corpuscular Hemoglobin 27.1 pg (25.0-34.0); Mean Corpuscular Hgb Conc 32.2 g/dL (32.0-36.0); Mean Corpuscular Volume 84.3 fL (80.0-100.0); Mean Platelet Volume 9.5 fL (9.4-12.4); Platelet Count 164 K/uL (130-400); RDW Coefficient of Variation 14.7 % (11.5-14.5); RDW Standard Deviation 45.3 fL (36.4-46.3); Red Blood Count 4.72 M/uL (4.70-6.10); White Blood Count 8.01 K/ul (4.8-10.8)
[2024-01-16 09:11] LABS: BUN Creatinine Ratio 31.8 (10-20); Calcium 8.8 mg/dl (8.6-10.3); Creatinine Clr Calc Pharmacy 60.3 ml/min; Potassium 3.9 mmol/L (3.5-5.1)
--- NOTE | 2024-01-16 10:46 | Discharge Summary ---
Discharge Summary Date of Service January 16, 2024 Principal Dx & Hospital Course #1 = Principal Diagnosis (1) AMS (altered mental status): Mr. Romero is an 78-year-old male with past medical history significant for dyslipidemia, hypertension, peripheral vascular disease, infrarenal abdominal aortic aneurysm, saccular aneurysm, persistent atrial fibrillation, GERD, gastroparesis, drug-induced constipation, prostate cancer, polymyalgia rheumatica, tremor of right hand, osteoporosis, lumbar radiculopathy, failed back syndrome, status post neurostimulator in the back, bilateral open-angle glaucoma moderate stage, polyneuropathy, anemia, monoclonal paraproteinemia, history of bladder cancer, history of pulmonary embolism status post IVC filter, primary insomnia who lives at home with his and ambulates with a walker who was admitted 01/12 for acute metabolic encephalopathy and acute illness with unclear eitology. Patient with cat scratch reported a "few weeks ago" and a small right medial ankle ulcer followed by wound care/podiatry. Infectious disease consulted: MRI completed, no sign of infection around neurostimulator. Per ID recommendations, antibiotics held 01/13, last dose in am. Patient remained afebrile and doing well. Temps documented from [facility] All infectious work up negative to date. On day of discharge, patient reported feeling at his baseline and denied any acute concerns. #Acute toxic metabolic encephalopathy, iso acute illness #Immunocompromised 2/[address] head, CTA head and neck unremarkable CT abdomen and pelvis and CT chest unremarkable except for abdominal aneurysm. Bio fire negative, Lactate 1.1 Drug screen positive for opiates screen, chronic use UA unremarkable Procalcitonin 1.6 TSH normal WBC 20 on admission, TMAX24 37.8 since admission (1800 01/12) OBTAINED from [facility] Delirium precautions Infectious disease consulted: Lumbar MRI negative for vertebral om Hold abx as of 01/13 01/10 blood cultures negative to date #hypokalemia stable #Cat scratch superficial, cultures negative, hold as above local wound care #Possible cellulitis of left lower extremity changes appear chronic on lower extremities local wound care #History of PE and DVT On Xarelto Status post IVC filter #Persistent l A-fib On Xarelto Metoprolol with holding parameters #Polymyalgia rheumatica brief steroids, however, no sepsis, will d/c and resume pred 5 #Infrarenal abdominal aneurysm #Saccular aneurysm Seems increasing Needs close follow-up with vascular surgery as OP Last visit Feb 2023 #Hypertension Metoprolol and lisinopril with holding parameters Will hold Lasix, resume in next 1-2 days #GERD On famotidine #Failed back syndrome Neurostimulator in the back resume medications as able #Bilateral open-angle glaucoma moderate stage Continue eyedrops #nonmuscle invasive bladder cancer Status post TURBT in June 2016 #History of ITP in 2013 treated with prednisone platelets stable #prostate adenocarcinoma s/p radical prostatectomy Currently on Lupron and Zytiga and prednisone treatment resume Zytiga #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 Under observation with heme-onc Notes For Next Care Provider No clear source for leukocytosis/AMS. All work up negative and patient stable over 48 hours off abx. Medication Changes From Visit Resumed home meds Admission HPI Per Admitting Provider 78-year-old male with past medical history significant for dyslipidemia, hypertension, peripheral vascular disease, infrarenal abdominal aortic aneurysm, saccular aneurysm, persistent atrial fibrillation, GERD, gastroparesis, drug-induced constipation, prostate cancer, polymyalgia rheumatica, tremor of right hand, osteoporosis, lumbar radiculopathy, failed back syndrome, status post neurostimulator in the back, bilateral open-angle glaucoma moderate stage, polyneuropathy, anemia, monoclonal paraproteinemia, history of bladder cancer, history of pulmonary embolism status post IVC filter, primary insomnia who lives at home with his and ambulates with a walker was brought in because of altered mental status. As per the patient woke up today and was shaky but after taking his pills he seemed okay nd he ate his lunch and went to sleep. When she woke him up around 5 PM he seemed again shaky and was feeling very weak and not able to ambulate and brought in here. In the ER he was very drowsy. Spiking temperatures in the ER. Currently received fluids and antibiotics. Drowsy but arousable. Can tell his name. Knows that he is in the hospital. Knows current month and year. Able to obey simple commands. Denies any complaint at this time. As per he was doing okay until this happened. No cough per . No nausea, vomiting or diarrhea. No complaints of any pain. Yesterday he saw cardiology and ambulated okay in the clinic as per his . Currently hemodynamics are okay. and daughter in the room.As per patient had a cat scratch on his left stack couple of weeks ago and it was super ficial scratch. Also follows with wound care for the right medial ankle ulcer which is currently small and dry. Past medical history. As mentioned above Past surgical history. Colonoscopy. EGD. EGD with endoscopic ultrasound. IVC filter placement. Laminectomy. Spinal cord stimulator placement. Bilateral cataracts. Prostatectomy. Removal of neck spine disc C3-C4. Tonsillectomy adenoidectomy. Right shoulder cuff repair. Bilateral total hip replacement. Social history. . Smoked cigars in the past. Alcohol glass of wine every week. No drug use. Family history. Father had COPD. Mother has hypertension. Dementia. Eczema. Brother has prostate cancer. Brother has heart disease. Admission Exam Per Admitting Provider General- Drowsy Head- atraumatic Eyes- PERRL ENT- oropharynx dry Neck- supple, no JVD. Lungs- clear to auscultation no wheezing or crackles. Heart- regular rhythm; no murmur, no gallop. Abdomen- normal bowel sounds, soft, nontender, no distension Extremities- cat scratch wound seen on left stack. mild erythema seen below cat scratch. Right medial ankle small dry ulcer seen Neuro- Drowsy but arousable and oriented x3 PERRL, no facial palsy; no dysarthria; tounge midline able to left extremities Discharge Exam Constitutional WD/WN, vitals as above Respiratory normal respiratory effort, lungs clear to auscultation Cardiovascular irregularly irregular Gastrointestinal (Abdomen) normal bowel sounds, soft, nontender, no hepatosplenomegaly Updated Medication List Medication Instructions Recorded Confirmed Type dorzolamide 22.3 mg-timolol 6.8 1 drp OPB BID #10 mL 10/22/21 01/12/24 Rx mg/mL eye drops travoprost 0.004 % eye drops 1 drp OPB HS #5 mL 10/22/21 01/12/24 Rx (Travatan Z) diclofenac sodium 1 % topical gel 2 g topical UD PRN THUMB ARTHRITIS 03/17/22 01/12/24 History famotidine 20 mg tablet 20 mg PO HS 03/17/22 01/12/24 History oxycodone 10 mg tablet 10 mg PO QID pain 03/17/22 01/12/24 History polyethylene glycol 3350 17 gram 17 g PO UD PRN Constipation 03/17/22 01/12/24 History oral powder packet (Miralax) rivaroxaban 20 mg tablet (Xarelto) 20 mg PO QDD 03/17/22 01/12/24 History baclofen 10 mg tablet See Rx Instructions .Route .COMPLEX 01/18/23 01/12/24 History brimonidine 0.2 % eye drops 1 drp OPL BID 01/18/23 01/12/24 History docusate sodium 100 mg capsule 100 mg PO QDL Constipation 01/18/23 01/12/24 History fluticasone propionate 50 2 spray intranasal QAM 01/18/23 01/12/24 History mcg/actuation nasal spray,suspension ipratropium bromide 21 mcg (0.03 2 spray intranasal HS 01/18/23 01/12/24 History %) nasal spray alfuzosin 10 mg tablet,extended 10 mg PO QDD 03/04/23 01/12/24 History release 24 hr gabapentin 100 mg capsule 100 mg PO QAM 03/04/23 01/12/24 History gabapentin 100 mg capsule 300 mg PO HS 03/04/23 01/12/24 History multivitamin 1 tab PO QDL 03/04/23 01/12/24 History abiraterone 250 mg tablet (Zytiga) 1,000 mg PO DAILYBB 01/12/24 01/12/24 History acetaminophen 500 mg tablet 500 mg PO TID 01/12/24 01/12/24 History furosemide 20 mg tablet 20 mg PO QAM 01/12/24 01/12/24 History lisinopril 5 mg tablet 5 mg PO QAM 01/12/24 01/12/24 History metoprolol succinate 25 mg 50 mg PO AMHS 01/12/24 01/12/24 History tablet,extended release 24 hr (Toprol XL) prednisone 5 mg tablet 5 mg PO DAILYBB 01/12/24 01/12/24 History Hospital Stay Data Consultations 01/12/24 22:23 ED Decision to Admit Stat 01/13/24 08:00 Consult Infectious Diseases Routine Diagnostic Imagining Performed 01/12/24 19:36 CT head/brain wo con Stat 01/12/24 20:43 CTA head w con [CT angio head w con] Stat CTA neck with con [CT angio neck with con] Stat 01/12/24 21:00 CT Abd and Pelvis [CT abd pelvis IV con only] Stat CT chest diagnostic w con Stat 01/13/24 13:22 MRI Lumbar Spine [MR lumbar spine wo/w con] Routine Pending Results Patient Have Any Pending Studies at Discharge: No Discharge Instructions Given to Patient (Per Discharging Provider) You were admitted for acute change in mental status; however, there was no clear source for the episode. Your blood cultures were negative. Your urine was non infectious. You remain stable for over 48 hours off of antibiotics. Your neurostimulator did not reveal concerns for infection. You can continue your medications as prescribed. You will have an appointment made for your PCP to ensure you are remaining stable and well after discharge. Total Time Total Time Spent Total Time Spent (In Minutes): 45
[2024-01-16 12:09] VITALS: RESP 19; TEMP 98.1; O2SAT 96
[2024-01-16] MEDS ORDERED: ACETAMINOPHEN 325 MG TAB ONE (14:00)
[2024-01-16] MEDS: ACETAMINOPHEN 325 MG TAB PO ONE (14:01)
[2024-01-16 14:04] VITALS: BP 167/114
[2024-01-16 14:13] VITALS: PULSE 72
--- NOTE | 2024-01-16 15:45 | Electrocardiogram Report ---
Test Reason : Blood Pressure : */* mmHG Vent. Rate : 57 BPM Atrial Rate : * BPM P-R Int : * ms QRS Dur : 88 ms QT Int : 388 ms P-R-T Axes : * -48 -89 degrees QTcB Int : 377 ms Atrial fibrillation with slow ventricular response Left axis deviation Low voltage QRS Nonspecific ST abnormality Abnormal ECG When compared with ECG of 12-Jan-2024 19:41, No significant change was found Confirmed by Artur Price ([id number]) on 01/16/2024 3:45:18 PM Referred By: REFERRED SELF Confirmed By: Artur Price
--- NOTE | 2024-01-16 15:50 | Electrocardiogram Report ---
Test Reason : Blood Pressure : */* mmHG Vent. Rate : 85 BPM Atrial Rate : 267 BPM P-R Int : * ms QRS Dur : 80 ms QT Int : 362 ms P-R-T Axes : * -21 26 degrees QTcB Int : 430 ms Atrial fibrillation Low voltage QRS Poor R wave progression, consider anterior [place] vs. lead placement vs. LVH Abnormal ECG When compared with ECG of 12-Jan-2024 23:15, (unconfirmed) Vent. rate has increased by 28 bpm Nonspecific T wave abnormality, improved in Inferior leads Nonspecific T wave abnormality no longer evident in Anterolateral leads QT has lengthened Confirmed by Artur Price ([id number]) on 01/16/2024 3:49:37 PM Referred By: REFERRED SELF Confirmed By: Artur Price
--- NOTE | 2024-01-18 13:10 | Coding Query ---
CODING QUERY To promote full compliance with coding requirements relating to patient care, provider participation is requested in all cases of community relations specialist uncertainty. Please assist us with the question(s) below: Coding Question(s): The patient is noted throughout their stay to have "acute toxic metabolic encephalopathy" and "was admitted 01/12 for acute metabolic encephalopathy and acute illness with unclear eitology." Could you please clarify the type and source of the patient's encephalopathy by placing an 'x' in the applicable parenthesis? Acute Metabolic Encephalopathy of unclear source and Acute Toxic Metabolic Encephalopathy of the same unclear source, without toxin ( x ) Acute Metabolic Encephalopathy of unclear source and Acute Toxic Metabolic Encephalopathy of the same unclear, toxic source ( ) Acute Metabolic Encephalopathy of unclear source and Acute Toxic Metabolic Encephalopathy of a separate, toxic source ( ) Acute Metabolic Encephalopathy of unclear source and Acute Toxic Metabolic Encephalopathy of a separate source without toxin ( ) Other, please specify ( ) . Physician's Response(s): Thank you Petra Rene Principal Diagnosis: "that condition established after study, to be chiefly responsible for occasioning the admission of the patient to the hospital for care." Co-Existing Principal Diagnosis: "when two or more diagnoses equally meet the criteria for principal diagnosis as determined by the circumstances of admission, diagnostic work up, and/or therapy provided, and the Alphabetic Index, Tabular List, or another coding guideline does not provide sequencing direction, any one of the diagnoses may be sequenced first." "When the physician has documented what appears to be a current diagnosis in the body of the record, but has not included the diagnosis in the final diagnostic statement, the physician should be asked whether the diagnosis should be added." (Source Coding [facility] 2 QTR90. p3-4) [facility]
== END 2024-01-16 14:14 | disposition home health service (06) | DRG 71 ==
LOC: ED 19:14 → 2E 01-13 01:01 → SUATTDRO 01-13 01:01 → 2E 01-13 01:31